=== PATIENT | male | born 1950 | race Caucasian/White ===

== ENCOUNTER 2019-12-30 10:31 | Day surgery (SDC) | payer OTHER, SELFPAY ==
--- NOTE | 2019-12-29 18:24 | PCM.HP.BLA ---
History and Physical Date of Admission: 12/30/19 Reginald Aguirre 1950 ? REFERRING PHYSICIAN: Erasmo Valadez MD ? CHIEF COMPLAINT: covid talk ? HPI: The patient is a 69 year old male referred for endoscopy. Reginald notes a history of colon polyps. Patient denies any change in bowel habits, weight changes, blood in stools, black tarry stools or abdominal pain. Denies family history of colon issues. ? The patient notes no upper GI complaints. ? Reginald has undergone prior endoscopy, most recently 09/15/[address] Luna with removal of a small adenomatous colon polyp, 3 year follow up recommended. ? Patient denies chest pain, shortness of breath or recent hospitalizations. Denies problems with sedation in the past. ? PAST MEDICAL HISTORY ? History of colon polyps 07/24/2013 ? ? PAST SURGICAL HISTORY ? COLONOSCOP W/ OR W/O BRS SPEC ? 07/24/13 ? Colonoscopy ? COLONOSCOP W/ OR W/O BRS SPEC ? 09/15/2016 ? Colonoscopy ? KNEE SCOPE,DIAGNOSTIC ? ? ? Meniscal tear ? PAST SURGICAL HISTORY OF Right 2015 ? repair biceps tendon ? ROTATOR CUFF REPAIR ? 04/18/13 ? left ? ? ? CURRENT MEDICATIONS ? naproxen (NAPROSYN) 500 mg tablet Take 1 tablet by mouth twice daily as needed for Pain. Take with food. ? aspirin, enteric coated (ASPIRIN, ENTERIC COATED) 81 mg EC tablet Take 1 tablet by mouth once daily. ? ? ? ALLERGIES: Thimersol [Thimerosal] ? PERSONAL HISTORY: SOCIAL HISTORY Social History ?Tobacco Use ? Smoking status: Former Smoker ? Smokeless tobacco: Never Used ? Tobacco comment: years Substance Use Topics ? Alcohol use: Yes ? ? Comment: rarely ? Drug use: No ? FAMILY HISTORY: ? Diabetes Mother ? ? Emphysema Father ? ? Asbestosis ? Diabetes Brother ? ? Asthma Brother ? ? ? REVIEW OF SYMPTOMS: The review of systems data was entered by the nurse and reviewed by me ? Nursing Notes: Vidhi Fuller RN 12/12/2019 7:51 AM Signed REVIEW OF SYSTEMS: General: The patient denies fatigue, denies weight loss, denies weight gain, denies feeling hot, and denies feelings of cold. Eyes: The patient denies glaucoma, denies eye injury/surgery, wears glasses or contacts. Ear/Nose/Throat: The patient denies allergies, denies hayfever, denies ear infections, and denies bloody noses. Cardiovascular: The patient denies chest pain, denies heart disease, denies high blood pressure,denies cardiac stent, denies prior heart attack, denies irregular heart beat, denies high cholesterol, denies poor circulation, denies heart failure, other cardiac issues, denies claudication, denies cold feet, denies peripheral arterial stent. Respiratory: The patient denies tuberculosis, denies pneumonia, denies frequent cough, denies pulmonary embolism, denies shortness of breath, and denies coughing up blood. Gastrointestinal: The patient denies difficulty swallowing, denies acid reflux, denies ulcers, denies vomiting, denies jaundice/hepatitis, denies gallbladder problems, denies black or tarry stools, denies hemorrhoids, denies bleeding from rectum, denies diverticulitis, denies constipation, denies diarrhea, denies loss of stool control, and denies hernias. Kidney/Bladder: The patient denies kidney stones, denies urine infections, and denies bloody urine. Skin: The patient ? a history of skin cancer, denies bleeding/changing moles, and denies a history of skin rash. Neurologic: The patient denies a history of epilepsy/convulsions, denies headaches, denies head/spinal injuries, and denies stroke/TIA. Psychiatric: The patient ? psychiatric medications, denies depression, and denies voices, denies substance abuse. Endocrine: The patient denies thyroid disorders, denies diabetes, and denies hormonal problems. Hematologic: The patient denies a history of bruising, denies bleeding, and denies anemia, denies blood clots. Infections: The patient notes a history of measles and mumps, denies rheumatic fever, and denies sexually transmitted diseases. Musculoskeletal: The patient denies back pain/injury, denies back problems, denies sciatica, notes knee/foot trouble, denies arthritis, or denies gout. ? ? When was patient's last Mammogram screening? N/A ? Last Colonoscopy: 2017 ? Vidhi Fuller RN I have confirmed and edited as necessary, the PFSH and ROS obtained by others. ? ? LABORATORY VALUES: As Noted ? RADIOLOGIC STUDIES: As Noted IMPRESSION: History of colon polyps ? PLAN: I have reviewed my findings with the surgeon. Will plan for lower endoscopy. We discussed the risks and benefits of the planned endoscopy. I have informed the patient that complications can occur including failure to complete the endoscopy and perforation. The patient had the opportunity to ask questions concerning the planned endoscopy. My staff has also explained the procedure to the patient in understandable terms. The patient freely consents to surgery. ? I plan to use golytely bowel preparation ? The patient was offered a surgery/procedure at a [facility] facility. I have counseled the patient regarding the risk of exposure to and/or potential harm posed by the COVID-19 virus with having a surgery/procedure at this time versus the risk of? delaying the surgery/procedure. It is not possible to know either the risk of delaying the surgery or procedure or chance of getting an infection with perfect accuracy, but a joint decision was made between the patient and myself?to proceed at this time with endoscopy. ? Preop instructions were reviewed. Patient mentioned having Ly[employer] take him to/from procedure appointment and I discussed that this would not be acceptable. Patient questioned this further and I did have our conductor sleeping car contact him directly to go over in Detail that he must have a ride who is a responsible adult, and that he cannot use a taxi service for this. Patient elected to reschedule procedureat [facility] where patient transportation service can be provided. ? ? ? Diagnoses: (Z12.11) Encounter for screening for malignant neoplasm of colon (primary encounter diagnosis) (Z86.010) History of colonic polyps ? ? Malia Brand PA-C
[2019-12-30 10:57] VITALS: PULSE 72; RESP 16; TEMP 36.6; O2SAT 98; BMI 38.3
[2019-12-30] MEDS: Lactated Ringers 1,000 ML 75 ML IV (11:01)
--- NOTE | 2019-12-30 12:00 | COLBX_PTH ---
PATIENT: FAYE VAUGHN LOC: EN U#:[id number] AGE/SX: 69/M ROOM: RE12/30/[address]: Dr. Sandrita Stephen MD : 1950 BED: DIS: 12/30/2019 SPEC #: [id number] RECD: 12/30/19 13:59 STATUS: SLY RELaly #: [id number] JENNIFER: 12/30/19 12:[address]: Sandrita Stephen DEPT: SURGICAL PATHOLOGY RECD BY: Guy Daniel ENTERED: 12/31/19 09:53 SP TYPE: COLON BX OTHR DR: Dr. Erasmo Valadez MD Tissues: Rectum, NOS Procedures: Surgery Specimen Level IV HEADER OPERATION: Colonoscopy (MAC) PRE-OP DIAGNOSIS: History colon polyps TISSUE SUBMITTED: Rectal polyp MICROSCOPIC DIAGNOSIS Rectal polyp, biopsy: Fragments of tubular adenoma. AM:estephanie 01/01/20 COMMENT Case has been reviewed in consultation with Dr. Jacinto who concurs with the above diagnosis. IDC:SJ MICROSCOPIC DESCRIPTION Slides are reviewed. GROSS DESCRIPTION Received in fixative is one container labeled with the patient's name and designated rectal polyp. The specimen consists of a piece of cabrales-pink polyp measuring 0.7 x 0.6 x 0.3 cm. A few fragments of fecal material are also noted. The entire specimen is submitted in one cassette. / AFTAB:estephanie 12/31/19 TC:5 CPT: 95134
[2019-12-30 12:40] VITALS: BP 149/95; BP 155/85; PULSE 82; RESP 16; TEMP 36.8; O2SAT 100
--- NOTE | 2019-12-30 12:41 | OP.CCLET_ITS ---
12/30/2019 Erasmo Valadez [address] [place] [address] Re : Colonoscopy procedure for Reginald Aguirre Dear Dr. Valadez This procedure was performed on Monday, December 30, 2019. My impressions and recommendations are as follows: Impressions : - One 5 to 10 mm polyp in the rectum, removed with a cold snare. Resected and retrieved. - Non-bleeding internal hemorrhoids. Recommendations : - Repeat colonoscopy date to be determined after pending pathology results are reviewed for surveillance based on pathology results. - A virtual visit will be setup with my office with Malia Brand to discuss pathology results in 1-2 weeks - Continue present medications. My findings are described in the full procedure note, which is enclosed. If I can be of further assistance, please feel free to contact me at Doctor phone number(s): , Work: . Sincerely, MD Sandrita Kruse MD 12/30/2019 12:40:40 PM This report has been signed electronically.
--- NOTE | 2019-12-30 12:41 | OP.COLON_ITS ---
Patient Name: Reginald Aguirre Procedure Date: 12/30/2019 11:50 AM Date of : 1950 Age: 69 Procedure: Colonoscopy Indications: High risk colon cancer surveillance: Personal history of colonic polyps Providers: Sandrita Stephen MD Referring MD: Sandrita Stephen MD Medicines: See the Anesthesia note for documentation of the administered medications Patient Profile: Refer to note in patient chart for documentation of history and physical. Last Colonoscopy: 2016. Complications: No immediate complications. Procedure: Pre-Anesthesia Assessment: - see anesthesia note After I obtained informed consent, the scope was passed under direct vision. Throughout the procedure, the patient's blood pressure, pulse, and oxygen saturations were monitored continuously. The Colonoscope was introduced through the anus and advanced to the cecum, identified by the appendiceal orifice, IC valve and transillumination. The colonoscopy was performed without difficulty. The patient tolerated the procedure well. The quality of the bowel preparation was adequate. Scope In: 12:14:51 PM Scope Withdrawal Time 0 hours 12 minutes 27 seconds Scope Out: 12:35:02 PM Total Procedure Duration Time 0 hours 20 minutes 11 seconds Findings: The perianal and digital rectal examinations were normal. A 5 to 10 mm polyp was found in the rectum. The polyp was sessile. The polyp was removed with a cold snare. Resection and retrieval were complete. Verification of patient identification for the specimen was done by the nurse. Estimated blood loss was minimal. Non-bleeding internal hemorrhoids were found. Multiple small and large-mouthed diverticula were found in the sigmoid colon. Impression: - One 5 to 10 mm polyp in the rectum, removed with a cold snare. Resected and retrieved. - Non-bleeding internal hemorrhoids. Recommendation: - Repeat colonoscopy date to be determined after pending pathology results are reviewed for surveillance based on pathology results. - A virtual visit will be setup with my office with Malia Brand to discuss pathology results in 1-2 weeks - Continue present medications. Procedure Code(s): --- Professional --- 35452, Colonoscopy, flexible; with removal of tumor(s), polyp(s), or other lesion(s) by snare technique Diagnosis Code(s): --- Professional --- Z86.010, Personal history of colonic polyps K62.1, Rectal polyp K64.8, Other hemorrhoids CPT copyright 2017 [employer]. All rights reserved. The codes documented in this report are preliminary and upon estate administrator review may be revised to meet current compliance requirements. MD Sandrita Kruse MD 12/30/2019 12:40:40 PM This report has been signed electronically. Number of Addenda: 0 Note Initiated On: 12/30/2019 11:50 AM
[2019-12-30 12:45] VITALS: BP 155/85; BP 159/93; PULSE 71; RESP 16; O2SAT 97
[2019-12-30 12:50] VITALS: BP 155/85; BP 167/92; PULSE 74; RESP 16; O2SAT 97
[2019-12-30 12:55] VITALS: BP 155/85; BP 173/93; PULSE 63; RESP 16; TEMP 36.3; O2SAT 97
[2019-12-30 13:21] VITALS: BP 155/85
== END 2019-12-30 13:24 | disposition home or self-care (01) ==
LOC: EN 10:32 → AC 10:33
PROVIDERS: Anesthesiology; PCP Family Medicine; Referring Provider Surgery; Visit Provider Surgery
PROC: 0DJD8ZZ Inspection of Lower Intestinal Tract, Via Natural or Artificial Opening Endoscopic (ICD-10-PCS; CPT 45378; principal; 2019-12-30 11:55)
DX: Z12.11 Encounter for screening for malignant neoplasm of colon (principal); Z87.19 Personal history of other diseases of the digestive system; K64.8 Other hemorrhoids; Z87.891 Personal history of nicotine dependence; Z85.828 Personal history of other malignant neoplasm of skin; D12.8 Benign neoplasm of rectum
CPT/HCPCS: 45385; 87635; 88305; C9803; J7120; J2405; U0003

== ENCOUNTER → 2020-05-10 08:00 | Outpatient (CLI) | payer OTHER, SELFPAY ==
--- NOTE | 2020-05-10 09:31 | NEURO_ITS ---
NCS and/or EMG Patient Report Ordering Doctor: Phoenix Byrne DATE OF SERVICE: 05/10/20 Indication: In December 2019 the patient was lifting a heavy object at work when he felt a sharp pain in the base of his right thumb. He subsequently experienced swelling on the volar surface of the wrist. These symptoms improved with time, but he was left with persistent numbness in the palm of the right hand. The area is well- circumscribed and does not extend into the fingers. There is no associated weakness. Evaluate for peripheral nerve injury. Findings: Nerve conduction studies were performed in the right upper extremity. The right median motor study recording the abductor pollicis brevis showed a normal amplitude, borderline distal latency and normal conduction velocity. The right ulnar motor study recording the abductor digiti minimi showed a normal amplitude, normal distal latency and normal conduction velocity. No conduction block or focal slowing was present across the elbow. The right median sensory response recording digit two showed a normal amplitude, latency and conduction velocity. The right ulnar sensory response recording digit five showed a mildly reduced amplitude, latency and conduction velocity. Note, the ulnar response was sub-maximal due to persistent motor artifact. The right radial sensory response recording over the extensor snuff box showed a normal amplitude, latency and conduction velocity. Right median mixed palmar latencies showed a normal median latency across the wrist. Needle EMG of the right upper extremity muscles was performed. No denervation was seen in any muscle. All motor unit morphology, activation and recruitment patterns were normal. Impression: This is an essentially normal study. There is no definitive electrophysiologic evidence of median neuropathy across the wrist. In addition, there are no findings on needle EMG to suggest a more proximal neurogenic injury (e.g. cervical radiculopathy, brachial plexopathy). Please note: electrodiagnostic testing is appropriately 95% sensitive in detecting median neuropathy across the wrist. However, 5% of patients will have a false negative study. Presumably, in these patients, intermittent compression results in pain and paresthesias from ischemia, but without any fixed demyelination or axonal loss that can be demonstrated on electrodiagnostic studies. If clinical suspicion remains high, a neuromuscular ultrasound could be considered to look for signs of mechanical impingement. Lastly, the mildly reduced ulnar sensory response is technical in nature. A submaximal response was obtained due to significant motor artifact. In addition, the patient's reported symptoms are outside the sensory territory of the ulnar nerve. Jose Jack D.O.
== END ==
PROVIDERS: PCP Family Medicine; Referring Provider Orthopaedic Surgery; Visit Provider Orthopaedic Surgery
DX: S63.91XA Sprain of unspecified part of right wrist and hand, initial encounter (principal)
CPT/HCPCS: 95886; 95909; 95910

== ENCOUNTER 2020-06-09 08:53 | Outpatient (RCR) | payer OTHER, SELFPAY | END 2020-06-09 23:59 | LOC: IMMUN 08:53 | PROVIDERS: PCP Family Medicine; Visit Provider Family Medicine | DX: Z23 Encounter for immunization (principal) | CPT/HCPCS: 0011A; 0012A ==

== ENCOUNTER 2020-12-18 05:13 | Emergency (ER) | payer OTHER, SELFPAY ==
[2020-12-18 05:13] VITALS: BP 170/88; PULSE 101; RESP 18; TEMP 36.1; O2SAT 100; BMI 37.7
--- NOTE | 2020-12-18 05:21 | EDS_ITS ---
HPI History of Present Illness Chief Complaint: Upper Extremity Injury Informant: patient Narrative Narrative: Patient started with pain in the dorsum of his right hand about 10 days or so ago. He was seen in urgent care center they told him it was a sprain and they taped a couple fingers. He went back in a week like he was told. They stated that he need to tape more of his fingers and I started him on Naprosyn as a few days ago. He comes in today because he still having pain on the dorsum of his hand and some swelling. It is never gotten better. It involves the dorsum of his right hand long ring and small finger. Mostly the long and ring. His index and thumb were not involved. He has had no fevers chills. No specific acute trauma although he does use his hand quite a bit. He also has Harini's syndrome and gets joint pain but has never had it in his hand. Past medical history is positive for cholesterol No known allergies Medications include Naprosyn and statin No recent surgeries Lives independently and works full-time [facility] Medical History High cholesterol History of prostate cancer History of skin cancer Home Medications naproxen 500 mg PO DAILY PRN PRN 12/16/19 [History Last Taken Unknown] prednisone 60 mg PO DAILY #15 tab 12/18/20 [Rx Last Taken Unknown] Allergy/AdvReac Type Severity Reaction Status Date / Time No Known Allergies Allergy Verified 12/18/20 05:16 Social History Smoking Status: Former smoker ROS ROS ED Constitutional Constitutional ED: Denies chills or sweats Gastrointestinal Gastrointestinal: Denies nausea or vomiting Musculoskeletal Musculoskeletal: Reports other Details: See history of present illness. ; Denies back pain or neck pain Integumentary Denies rash Neurologic Neurologic: Denies paresthesias or weakness EXAM Physical Exam Const Vital Signs: 12/18/20 05:13 Temperature 96.9 F L Temperature Source Temporal Pulse Rate 101 H Respiratory Rate 18 Blood Pressure 170/88 H Blood Pressure Mean 115 Pulse Ox 100 Oxygen Delivery Method Room Air Positive well nourished and well developed General Appearance ED: well developed and NAD HEENT normocephalic and atraumatic Resp normal respiratory effort Extremity Extremity Narrative: There is a very mild amount of swelling of the dorsum of his right hand. This overlies the third fourth and slightly fifth metacarpal. No real swelling in the fingers. No swelling in the wrist. With flexion of the involved fingers he does get some pain in the dorsum of the hand. Negative Shelli's test. No pain with motion of the wrist or joints individually. There is no erythema or warmth. No indication whatsoever of infection. Neuro oriented x3, no focal motor deficits and no sensory deficits noted Sensorium / Orientation: alert Motor Exam: strength 5/5 throughout Psych mental status grossly normal Skin Lesions: no lesions Rashes: no rashes MDM MDM MDM Narrative Medical decision making narrative: Three-view x-ray of the right hand looked at by me shows a fair amount of arthritis and bone cyst changes. But no notable mass fracture or acute abnormality. Clinically this is consistent with an extensor tendinitis. We will have him stop the Naprosyn. He does not have diabetes. I will put him on a short course of prednisone. He will continue to tape and stabilize the fingers as he has been. He will follow up with his primary physician. Discharge Plan Triage Chief Complaint: Upper Extremity Injury ED Provider: Cristiano Rondon Dx/Rx/DC Orders Clinical Impression: Tendinitis of extensor tendon of right hand Instructions: ED Tendonitis Prescriptions: New prednisone 20 MG tablet 60 mg PO DAILY Qty: 15 RF: 0 No Action naproxen 500 MG tablet 500 mg PO DAILY PRN PRN (Reason: Pain Or Fever) RF: 0 Primary Care Provider: Erasmo Valadez Referrals: Erasmo Valadez MD [Primary Care Provider] - 3-5 Days if not improving Disposition Disposition: Home, Self Care
--- NOTE | 2020-12-18 05:30 | RAD_ITS ---
STUDY: X-RAY - RIGHT HAND REASON FOR EXAM: Male, 70 years old. pain TECHNIQUE: 3 view(s) of the hand. COMPARISON: None. FINDINGS: Normal radiocarpal articulation. Normal distal radioulnar joint. Normal visualized carpal bones. Normal carpal articulations Normal carpometacarpal articulation of the thumb. Normal second through fifth carpometacarpal joints. Normal metacarpi. Normal metacarpophalangeal joint of the thumb. Normal interphalangeal joint of the thumb. Normal proximal and distal phalanges of the thumb. Joint space narrowing and osteophyte formation of the third metacarpophalangeal joint consistent with arthrosis. There is diffuse articular joint space narrowing of the proximal and distal interphalangeal joints of the second through fifth fingers, but without erosive changes or periarticular soft tissue swelling. Normal phalanges of the second through fifth fingers. The soft tissue structures are unremarkable. RAD/Hand Min 3 Views IMPRESSION: Degenerative joint disease of the hand, including the third metacarpophalangeal joint, as described above. Electronically Signed: Abiodun Moore MD at 6:43 EDT Tel , Service support ,
[2020-12-18] MEDS: predniSONE 20 MG Tablet 60 MG PO (06:06)
== END 2020-12-18 06:08 | disposition home or self-care (01) ==
PROVIDERS: Emergency Provider Emergency Medicine; PCP Family Medicine
DX: M77.9 Enthesopathy, unspecified (principal); Z87.891 Personal history of nicotine dependence; Z85.46 Personal history of malignant neoplasm of prostate
CPT/HCPCS: 73130; 99283

== ENCOUNTER 2021-03-26 09:41 | Emergency (ER) | payer OTHER, SELFPAY ==
[2021-03-26 09:41] VITALS: BP 186/85; PULSE 112; RESP 18; TEMP 36.6; O2SAT 96; BMI 36.9
[2021-03-26 09:52] VITALS: BP 186/85; PULSE 112; RESP 18; TEMP 36.6; O2SAT 96
--- NOTE | 2021-03-26 10:19 | US_ITS ---
STUDY: SCROTUM ULTRASOUND REASON FOR EXAM: Male, 70 years old. Right testicular pain TECHNIQUE: Ultrasound evaluation of the scrotum was performed with color Doppler and static pascual-scale imaging. COMPARISON: None. FINDINGS: RIGHT TESTICLE INTRATESTICULAR: There is a normal size of the right testicle. The right testicle measures 3.3 x 2.9 x 2.2 cm. There is a heterogeneous echotexture. There is increased arterial and normal venous vascularity. There is no demonstrated right testicular mass or cyst. EXTRATESTICULAR: The epididymis is enlarged. The epididymis head measures 1.8 cm. There is increased (hyperemic) vascularity of the epididymis. There is no demonstrated epididymal cystic structure. There is a small hydrocele. There is no demonstrated varicocele. There is no demonstrated extratesticular mass or cyst. LEFT TESTICLE INTRATESTICULAR: There is a normal size of the left testicle. The left testicle measures 3.6 x 2.5 x 2.1 cm. There is a heterogeneous echotexture. There is increased arterial and normal venous vascularity. There is no demonstrated left testicular mass or cyst. Small echogenic foci are seen in the left testicle which may represent small calcifications. EXTRATESTICULAR: The epididymis is normal in size. The epididymis head measures 1.7 cm. There is increased (hyperemic) vascularity of the epididymis. There is no demonstrated epididymal cystic structure. There is no demonstrated hydrocele. There is no demonstrated varicocele. There is no demonstrated extratesticular mass or cyst. US/Testicular with Arterial Flow IMPRESSION: 1. No evidence of testicular torsion at the time this examination was performed. 2. Increased vascularity to both testicles worse on the right side and of the right epididymis which may reflect orchitis and right epididymitis. 3. Small echogenic foci in the left testicle could represent small calcifications. Electronically Signed: Valente Warner, at 12:26 EST Tel , Service support ,
--- NOTE | 2021-03-26 10:38 | EX.ED.DYSGE1 ---
HPI History of Present Illness Chief Complaint: Abd Pain Informant: patient Onset/Context/Timing Onset: Days Context: Gradual Onset Current Severity: Moderate Maximum Severity: Moderate Narrative Narrative: Patient present secondary to right lower quadrant pain and right testicular swelling. Patient had prostatectomy surgery [address] Nieves at [facility]. He had a catheter placed at that time. It was removed on , 2 days ago. He states that evening he started noticing pain in the right lower quadrant and today is noted his right testicle is swollen. He has a history of self cathing and states he is having more pain when doing so. No fever or chills. [facility] Medical History (Updated 03/26/21 @ 14:[address] Loraine Hendrix MD) High cholesterol History of prostate cancer History of skin cancer Home Medications atorvastatin 40 mg PO DAILY 03/26/21 [History Last Taken 03/26/21] ferrous sulfate [FeroSul] 325 mg PO BID 03/26/21 [History Last Taken 03/26/21] hydrocodone-acetaminophen 1 tab PO Q6H PRN 3 Days #10 tab 03/26/21 [Rx Last Taken Unknown] levofloxacin 500 mg PO DAILY #9 tab 03/26/21 [Rx Last Taken Unknown] Allergy/AdvReac Type Severity Reaction Status Date / Time No Known Allergies Allergy Verified 03/26/21 09:43 Surgical History H/O prostatectomy Social History Smoking Status: Former smoker ROS ROS ED Constitutional Constitutional ED: Denies chills or fever(s) Eyes Eyes: Denies change in vision ENT ENT ED: Denies sore throat Cardiovascular Cardiovascular: Denies chest pain Respiratory/Chest Respiratory/Chest: Denies cough or dyspnea Gastrointestinal Gastrointestinal: Reports abdominal pain; Denies diarrhea, nausea or vomiting Genitourinary Genitourinary ED: Reports dysuria and other Details: Right testicular pain and swelling Musculoskeletal Musculoskeletal: Denies back pain Integumentary Denies rash Neurologic Neurologic: Denies headache(s) or weakness Allergic/Immunologic Allergic/Immunologic ED: Denies urticaria EXAM Physical Exam Const Vital Signs: 03/26/21 09:41 03/26/21 09:52 03/26/21 11:06 Temperature 97.9 F 97.9 F 98.7 F Temperature Source Temporal Temporal Temporal Pulse Rate 112 H 112 H 93 Respiratory Rate 18 18 20 H Blood Pressure 186/85 H 186/85 H 132/72 H Blood Pressure Mean 118 118 92 Pulse Ox 96 96 93 Oxygen Delivery Method Room Air Room Air Room Air 03/26/21 13:06 Temperature Temperature Source Pulse Rate 89 Respiratory Rate 15 Blood Pressure 147/66 H Blood Pressure Mean 93 Pulse Ox Oxygen Delivery Method Positive well nourished and well developed General Appearance ED: well developed HEENT Reports moist mucous membranes Eyes PERRL and EOMs intact bilaterally Neck supple Chest Wall inspection of chest normal and palpation of chest normal Resp normal respiratory effort and clear to auscultation bilaterally Cardio regular rate and regular rhythm GI GI Narrative: Minimal tenderness in the right lower quadrant. No palpable masses. No obvious hernias. Hypoactive bowel sounds. Narrative: Edema and tenderness to the right testicle. No significant scrotal erythema or skin change. Mild discharge from the urethral meatus. Neuro oriented x3 Sensorium / Orientation: alert Skin no rashes or lesions noted MDM MDM MDM Narrative Medical decision making narrative: Patient given morphine and Zofran for pain. Lab work, urinalysis, testicular ultrasound obtained. Lab Data Attestation: I reviewed the patient's lab results. Labs: Laboratory Results - last 24 hr 03/26/21 03/26/21 03/26/21 10:33 10:33 12:20 WBC 9.5 RBC 4.97 Hgb 13.7 Hct 42.7 MCV 85.9 MCH 27.6 MCHC 32.1 RDW Std Deviation 41.2 RDW Coeff of Khoa 13.2 Plt Count 198 MPV 8.9 Immature Gran % (Auto) 0.400 Neut % (Auto) 84.0 H Lymph % (Auto) 5.1 L [place] % (Auto) 6.5 Eos % (Auto) 3.8 Baso % (Auto) 0.2 Absolute Neuts (auto) 8.0 H Absolute Lymphs (auto) 0.49 L Nucleated RBC % 0 Differential Comment SCANNED Sodium 138 Potassium 3.7 Chloride 102 Carbon Dioxide 27.0 Anion Gap 9 BUN 22 H Creatinine 1.02 Estim Creat Clear Calc 67.39 Est GFR (MDRD) Af Amer 93 Est GFR (MDRD) Non-Af 77 BUN/Creatinine Ratio 21.6 H Glucose 163 H Calcium 9.2 Urine Color Yellow Urine Clarity Clear Urine pH 6.0 Ur Specific [place] 1.030 Urine Protein 100 H Urine Glucose (UA) Normal Urine Ketones Negative Urine Occult Blood 250 H Urine Nitrite Negative Urine Bilirubin Negative Urine Urobilinogen Normal Ur Leukocyte Esterase 500 H Urine RBC 25-50 SEEN Urine WBC >100 SEEN Ur Squamous Epith Cells 0 SEEN Urine Bacteria 0 SEEN Urine Mucus 0 SEEN Radiography Diagnostic Testing: Clinical Impression(s) from Imaging Studies Testicular Ultrasound 03/26/21 10:19 IMPRESSION: 1. No evidence of testicular torsion at the time this examination was performed. 2. Increased vascularity to both testicles worse on the right side and of the right epididymis which may reflect orchitis and right epididymitis. 3. Small echogenic foci in the left testicle could represent small calcifications. Electronically Signed: Valente Warner, at 12:26 EST Tel , Service support , Treatment and Re-Evaluation Comments:: Lab work overall unremarkable. Urinalysis does show significant white cells with no bacteria. Ultrasound shows evidence of orchitis and right epididymitis. No sign of testicular torsion. On repeat evaluation patient resting comfortably. Test results discussed with him. He will be treated with a 10-day course of Levaquin and given analgesics. He is to follow-up Dr. العراقي within the next 1 to 2 weeks. Discharge Plan Triage Chief Complaint: Abd Pain ED Provider: Loraine Hendrix Dx/Rx/DC Orders Clinical Impression: Orchitis and epididymitis Instructions: ED Epididymitis, ED Orchitis Prescriptions: New hydrocodone-acetaminophen 5-325 mg tablet 1 tab PO Q6H PRN (Reason: pain) 3 Days Qty: 10 RF: 0 levofloxacin 500 mg tablet 500 mg PO DAILY Qty: 9 RF: 0 No Action atorvastatin 40 mg tablet 40 mg PO DAILY RF: 0 ferrous sulfate [FeroSul] 325 mg (65 mg iron) tablet 325 mg PO BID RF: 0 Primary Care Provider: Erasmo Valadez Referrals: Erasmo Valadez MD [Primary Care Provider] - [place] العراقي MD [NON-STAFF] - 1 Week Disposition Disposition: Home, Self Care
[2021-03-26] MEDS: Ondansetron 4 MG/2 ML Vial IV ×2 (11:01→12:33)
[2021-03-26] MEDS: Morphine 4 MG/ML Syringe IV ×2 (11:03→12:34)
[2021-03-26 11:04] LABS: Absolute Lymphocyte Count 0.49 X10^3/uL (0.83-4.51); Basophil# 0.02 X10^3/uL; Basophil% 0.2 % (0-1); Eosinophil# 0.36 X10^3/uL; Eosinophils% 3.8 % (0-5); Hematocrit 42.7 % (40-54); Hemoglobin 13.7 g/dL (13.0-16.5); Lymphocyte # 0.49 X10^3/ul (0.83-4.51); Lymphocyte % 5.1 % (19-41); Mean Corp Hgb Conc 32.1 g/dL (32-36); Mean Corpuscular Hgb 27.6 pg (27.0-32.0); Mean Corpuscular Volume 85.9 fL (80-94); Mean Platelet Vol. 8.9 fl (6.2-12.0); Monocyte# 0.62 X10^3/uL; Monocyte% 6.5 % (0-10); NRBC Flagged by Analyzer 0 % (0-5); POSITIVE DIFFERENTIAL YES; Platelet Count 198 K/mm3 (150-450); RBC Distribution Width CV 13.2 % (11.6-14.6); RBC Distribution Width SD 41.2 fl (35.1-43.9); Red Blood Count 4.97 M/mm3 (4.6-6.2); White Blood Count 9.5 K/mm3 (4.4-11.0)
[2021-03-26 11:06] VITALS: BP 132/72; PULSE 93; RESP 20; TEMP 37.1; O2SAT 93
[2021-03-26 11:12] LABS: Differential Indicated SCAN CRITERIA MET
[2021-03-26 11:14] LABS: Anion Gap 9 (5-15); BUN 22 mg/dL (7-18); BUN/Creat Ratio 21.6 RATIO (10-20); Calcium,Total 9.2 mg/dL (8.5-10.1); Chloride 102 mmol/L (98-107); Creatinine, Serum 1.02 mg/dL (0.70-1.30); EST Glomerular Filtration Rate 77 mL/min (>60); Est Glom Filt Rate - Afr Amer 93 mL/min (>60); Estimated Creatinine Clearance 67.39 ml/min; Glucose 163 mg/dL (74-106); Potassium 3.7 mmol/L (3.5-5.1); Sodium Level 138 mmol/L (136-145)
[2021-03-26 11:32] LABS: Differential Comment SCANNED
[2021-03-26 12:26] LABS: Bacteria 0 SEEN /hpf (None Seen); Mucous, Urine 0 SEEN /hpf (<or=2+); Squamous Epithelial Cells - UA 0 SEEN /hpf (0-5)
[2021-03-26 12:29] LABS: Color, Urine Yellow (Yellow); Glucose, Dipstick Normal (Normal); Ketone-Dipstick Negative (Negative); Leukocyte Esterase-Dipstick 500 /ul (Negative); Nitrite-Dipstick Negative (Negative); Occult Blood-Urine 250 /ul (Negative); Protein-Dipstick 100 mg/dl (Negative); Urine Bilirubin Dipstick Negative (Negative); Urine Clarity Clear (Clear); Urine Urobilinogen Normal (Normal)
[2021-03-26 12:44] LABS: Red Blood Cells-Urine 25-50 SEEN /hpf (0-5); White Blood Cells >100 SEEN /hpf (0-5)
[2021-03-26 13:06] VITALS: BP 147/66; PULSE 89; RESP 15
[2021-03-26 14:31] VITALS: BP 151/70; PULSE 93; RESP 15
[2021-03-26] MEDS: levoFLOXacin 500 MG Tablet PO (14:31)
== END 2021-03-26 14:33 | disposition home or self-care (01) ==
PROVIDERS: Emergency Provider Emergency Medicine; PCP Family Medicine
DX: N45.3 Epididymo-orchitis (principal); E78.00 Pure hypercholesterolemia, unspecified; Z79.899 Other long term (current) drug therapy; Z85.46 Personal history of malignant neoplasm of prostate; Z87.891 Personal history of nicotine dependence; Z90.79 Acquired absence of other genital organ(s)
CPT/HCPCS: 76870; 80048; 81001; 85025; 87040; 87077; 87086; 87088; 87186; 93976; 96374; 96375; 96376; 99285; A4216; J2405

== ENCOUNTER 2021-03-27 09:32 | Inpatient (IN) | payer OTHER, MEDICARE, SELFPAY ==
[2021-03-27 09:33] VITALS: BP 154/85; PULSE 111; RESP 20; TEMP 36.7; O2SAT 96; BMI 36.6
--- NOTE | 2021-03-27 10:09 | EX.ED.GUMALE ---
HPI History of Present Illness Chief Complaint: Male Pain/Injury Detail of Chief Complaint: Right testicle pain Informant: patient Pain Current Severity: 1010 Maximum Severity: 1010 Narrative Narrative: Patient presents to the emergency department complaint of pain in his right testicle. Patient tells me that he started having pain 2 days ago. Patient has history of prostatectomy 6 weeks ago and had an indwelling Barraza catheter till just over a week ago. Patient has been self catheterizing since these catheter was removed. Patient presented to the emergency department yesterday and had blood work as well as an ultrasound of the testicles and a urinalysis. Patient was diagnosed with a UTI as well as epididymitis/orchitis. Patient was started on Levaquin and started on pain medications which he states is not helping his pain. Patient states that he self cath last night and noted significant amount of blood which was unusual and noticed that his right testicle is since increased in size. He complains of pain is 10 out of 10. He denies any fever or vomiting. He denies any trauma to his testicles. [facility] Medical History (Updated 03/27/21 @ 18:[address] Domenico Barfield, DO) High cholesterol History of prostate cancer History of skin cancer Home Medications atorvastatin 40 mg PO DAILY 03/26/21 [History Last Taken 03/26/21] ferrous sulfate [FeroSul] 325 mg PO BID 03/26/21 [History Last Taken 03/26/21] hydrocodone-acetaminophen 1 tab PO Q6H PRN 3 Days #10 tab 03/26/21 [Rx Last Taken Unknown] levofloxacin 500 mg PO DAILY #9 tab 03/26/21 [Rx Last Taken Unknown] Allergy/AdvReac Type Severity Reaction Status Date / Time No Known Allergies Allergy Verified 03/27/21 09:35 Surgical History H/O prostatectomy Social History Smoking Status: Former smoker ROS ROS ED Constitutional Constitutional ED: Reports systems reviewed and no addt'l complaints, except as documented; Denies body ache(s), change in weight or chills Eyes Eyes: Denies acute decrease in peripheral vision, change in vision, double vision or loss of vision ENT ENT ED: Reports none; Denies ear pain, lip swelling, loss taste/smell, neck pain, otalgia or sore throat Cardiovascular Cardiovascular: Reports none; Denies abdominal pain, chest pain with activity, leg edema, lightheadedness, palpitations, rapid heart rate or syncope Respiratory/Chest Respiratory/Chest: Reports none; Denies change in mental status, dry cough, dyspnea, hemoptysis, shortness of breath at rest or shortness of breath with exertion Gastrointestinal Gastrointestinal: Reports none; Denies abdominal pain, change in stool character, diarrhea, hematemesis, hematochezia, melena, rectal bleeding or vomiting Genitourinary Genitourinary ED: Reports none and other Details: Right testicle pain and swelling ; Denies abdominal discomfort, anuria, dysuria, genital pain or polyuria Musculoskeletal Musculoskeletal: Reports none; Denies arthralgias, back pain, difficulty walking, extremity pain, muscle weakness or myalgias Integumentary Reports none; Denies abscess or rash Neurologic Neurologic: Reports none; Denies abnormal gait, confusion, focal weakness, frequent falls, headache(s), loss of vision, numbness, paresthesias, radicular pain, vertigo or weakness Psychiatric Psychiatric: Reports systems reviewed and no addt'l complaints, except as documented and none; Denies behavioral changes, confusion, difficulty concentrating, hallucinations, suicidal ideation, tactile hallucinations or visual hallucinations Endocrine Endocrinology: Denies none, cold intolerance, excessive sweating, fatigue or heat intolerance Hematologic/Lymphatic Hematologic/Lymphatic: Reports none; Denies anemia, easy bleeding or easy bruising Allergic/Immunologic Allergic/Immunologic ED: Denies as per HPI, none, lip swelling, mouth swelling, throat swelling, tongue swelling or hives EXAM Physical Exam Const Vital Signs: 03/27/21 09:33 03/27/21 12:22 03/27/21 14:20 Temperature 98.0 F Temperature Source Temporal Pulse Rate 111 H 68 86 Respiratory Rate 20 H 18 16 Blood Pressure 154/85 H 138/68 H 114/65 Blood Pressure Mean 108 91 81 Pulse Ox 96 96 95 Oxygen Delivery Method Room Air Room Air Room Air Positive well nourished and well developed General Appearance ED: well developed and NAD HEENT Reports TM's clear and moist mucous membranes normocephalic and atraumatic; Negative for trauma or tenderness Tympanic Membrane ED: Yes TM's clear Eyes PERRL and EOMs intact bilaterally General Eye ED: Negative for pale conjunctiva or scleral icterus Neck no lymphadenopathy, supple and no JVD General: Negative for tenderness Chest Wall inspection of chest normal and palpation of chest normal Chest: Negative for tenderness Resp normal respiratory effort and clear to auscultation bilaterally Effort and Inspection: Negative for respiratory distress or pain with movement Auscultation: Negative for rhonchi, wheezes or diminished lung sounds Cardio regular rate, regular rhythm, S1 normal heart sound, S2 normal heart sound and no murmurs Peripheral Pulses: pulses 2+ throughout GI normal to inspection, nondistended, normoactive bowel sounds, soft to palpation, non-tender, non-distended and no masses Narrative: Patient has a swollen right scrotum slightly erythematous. Testicle is enlarged and painful to palpation. Patient has tenderness over the epididymis. Back/Spine no CVA tenderness and no thoracic nor lumbar tenderness Extremity normal to inspection General Extremety ED: Negative for edema General Extremity: Negative for edema Neuro oriented x3, CN's II-XII intact bilaterally, no sensory deficits noted and gait normal Sensorium / Orientation: awake, alert, oriented to person, oriented to place and oriented to time Motor Exam: strength 5/5 throughout and strength abnormal Psych mental status grossly normal Skin no rashes or lesions noted and no wounds MDM MDM MDM Narrative Medical decision making narrative: IV line established on arrival. Patient started on Zosyn. Case discussed with hospitalist who asked that we transfer patient being that we do not have urology on-call. Patient would prefer to go back to where his urologist is and where he had his prostatectomy 6 weeks ago and asked that I discussed case with [facility] which we did. Patient was accepted for transfer by Dr. Abreu who is covering for urology. They are unsure when they will have a bed available and could be several days. After 6 hours and still no bed available patient will be evaluated by hospitalist to evaluate for admission until such time that patient has a bed available for transfer to [facility] Lab Data Attestation: I reviewed the patient's lab results. Labs: Laboratory Results - last 24 hr 03/27/21 03/27/21 10:30 10:30 WBC 14.8 H RBC 3.82 L Hgb 10.5 L Hct 33.1 L MCV 86.6 MCH 27.5 MCHC 31.7 L RDW Std Deviation 42.1 RDW Coeff of Khoa 13.4 Plt Count 240 MPV 9.1 Immature Gran % (Auto) 0.500 Neut % (Auto) 83.7 H Lymph % (Auto) 5.3 L [place] % (Auto) 7.4 Eos % (Auto) 3.0 Baso % (Auto) 0.1 Absolute Neuts (auto) 12.4 H Absolute Lymphs (auto) 0.79 L Nucleated RBC % 0 Sodium 138 Potassium 3.6 Chloride 103 Carbon Dioxide 26.0 Anion Gap 9 BUN 18 Creatinine 0.91 Estim Creat Clear Calc 75.53 Est GFR (MDRD) Af Amer 106 Est GFR (MDRD) Non-Af 88 BUN/Creatinine Ratio 19.8 Glucose 173 H Calcium 8.8 Discharge Plan Triage Chief Complaint: Male Pain/Injury ED Provider: Domenico Barfield Dx/Rx/DC Orders Clinical Impression: Acute epididymitis, Orchitis, Intractable pain, Acute UTI Prescriptions: No Action atorvastatin 40 mg tablet 40 mg PO DAILY RF: 0 ferrous sulfate [FeroSul] 325 mg (65 mg iron) tablet 325 mg PO BID RF: 0 hydrocodone-acetaminophen 5-325 mg tablet 1 tab PO Q6H PRN (Reason: pain) 3 Days Qty: 10 RF: 0 levofloxacin 500 mg tablet 500 mg PO DAILY Qty: 9 RF: 0 Primary Care Provider: Erasmo Valadez Referrals: Erasmo Valadez MD [Primary Care Provider] - Disposition Disposition: Acute Care [facility]
[2021-03-27] MEDS: Ondansetron 4 MG/2 ML Vial IV ×2 (10:34→19:06)
[2021-03-27] MEDS: HYDROmorphone 1 MG/ML Syringe IV (10:34)
[2021-03-27 10:47] LABS: Absolute Lymphocyte Count 0.79 X10^3/uL (0.83-4.51); Absolute Neutrophil Count 12.4 X10^3/uL (2.0-7.7); Basophil# 0.02 X10^3/uL; Basophil% 0.1 % (0-1); Eosinophil# 0.45 X10^3/uL; Hematocrit 33.1 % (40-54); Hemoglobin 10.5 g/dL (13.0-16.5); Lymphocyte # 0.79 X10^3/ul (0.83-4.51); Lymphocyte % 5.3 % (19-41); Mean Corp Hgb Conc 31.7 g/dL (32-36); Mean Corpuscular Hgb 27.5 pg (27.0-32.0); Mean Corpuscular Volume 86.6 fL (80-94); Mean Platelet Vol. 9.1 fl (6.2-12.0); Monocyte# 1.09 X10^3/uL; Monocyte% 7.4 % (0-10); NRBC Flagged by Analyzer 0 % (0-5); Neutrophil # 12.39 X10^3/uL (2.7-7.7); Neutrophil % 83.7 % (47-70); Platelet Count 240 K/mm3 (150-450); RBC Distribution Width CV 13.4 % (11.6-14.6); RBC Distribution Width SD 42.1 fl (35.1-43.9); Red Blood Count 3.82 M/mm3 (4.6-6.2); White Blood Count 14.8 K/mm3 (4.4-11.0)
[2021-03-27 10:52] LABS: Anion Gap 9 (5-15); BUN 18 mg/dL (7-18); BUN/Creat Ratio 19.8 RATIO (10-20); Calcium,Total 8.8 mg/dL (8.5-10.1); Chloride 103 mmol/L (98-107); Creatinine, Serum 0.91 mg/dL (0.70-1.30); EST Glomerular Filtration Rate 88 mL/min (>60); Est Glom Filt Rate - Afr Amer 106 mL/min (>60); Estimated Creatinine Clearance 75.53 ml/min; Glucose 173 mg/dL (74-106); Potassium 3.6 mmol/L (3.5-5.1); Sodium Level 138 mmol/L (136-145)
--- NOTE | 2021-03-27 11:52 | NURSING ---
HOSPITALIST FOR DR ULLOA
--- NOTE | 2021-03-27 12:09 | NURSING ---
1142 CALLED ISSAC TROTTER. SHE WILL CALL BACK
--- NOTE | 2021-03-27 12:10 | NURSING ---
ISSAC TROTTER CALLED BACK
[2021-03-27 12:22] VITALS: BP 138/68; PULSE 68; RESP 18; O2SAT 96
--- NOTE | 2021-03-27 12:58 | ED.RN ---
PT ACCEPTED AT [facility] BY DR GARNETT. NO BEDS AT THIS TIME. MAY BE TOMORROW OR THE NEXT DAY.
--- NOTE | 2021-03-27 13:01 | ED.RN ---
[facility] WILL CALL AT 1700 TO UPDATE
[2021-03-27 14:20] VITALS: BP 114/65; PULSE 86; RESP 16; O2SAT 95
--- NOTE | 2021-03-27 18:20 | NURSING ---
MED SURG JOPPERI ORCHITIS, EPIDIDIMYTIS, INTRACTABLE PAIN
[2021-03-27 18:45] VITALS: BP 126/67; PULSE 99; RESP 18; O2SAT 93
[2021-03-27] MEDS: Morphine 4 MG/ML Syringe IV (19:06)
--- NOTE | 2021-03-27 19:12 | HP.PCM.HOS_ITS ---
HPI - General HPI Narrative FAYE VAUGHN, is a 70 M who presents who underwent a prostatectomy about 6 weeks ago. Patient had a catheter was removed this past . Patient typically straight catheters and noted pain. Presented to the emergency room where he had an ultrasound that did not show any evidence of testicular torsion but did show increased vascularity of both testes worse on the right with right epididymitis and may reflect orchitis. Patient was discharged with levofloxacin. Today the patient felt worse and did catheterize himself and did have transient renato hematuria but then was subsequent clear urine thereafter. Patient received Pipracil and/tazobactam in the emergency room. Emergency room reached out to me about admission but with the epididymoorchitis and the patient's recent surgery recommended transfer to the hospital where he had the procedure performed in case he would require surgery. Contacted [facility] and patient was accepted that there but there is no ready beds av ailable. Also service was then contacted again for admission and patient be brought into the hospital until he could be transferred to [facility]. [facility] Medical History High cholesterol History of prostate cancer History of skin cancer Home Medications atorvastatin 40 mg PO DAILY 03/26/21 [History Last Taken 03/26/21] ferrous sulfate [FeroSul] 325 mg PO BID 03/26/21 [History Last Taken 03/26/21] hydrocodone-acetaminophen 1 tab PO Q6H PRN 3 Days #10 tab 03/26/21 [Rx Last Taken Unknown] levofloxacin 500 mg PO DAILY #9 tab 03/26/21 [Rx Last Taken Unknown] Allergy/AdvReac Type Severity Reaction Status Date / Time No Known Allergies Allergy Verified 03/27/21 09:35 Surgical History H/O prostatectomy Social History Smoking Status: Former smoker ROS ROS Narrative No melena nor hematochezia. No fever chills. All review of systems were negative except as mentioned above in the history of present illness and the other review of systems. He does have urinary incontinence and does straight catheterize. Vital Signs Vital Signs Vital Signs: 03/27/21 09:33 12/12/21 12:22 03/27/21 14:20 Temperature 36.7 C Temperature Source Temporal Pulse Rate 111 H 68 86 Respiratory Rate 20 H 18 16 Blood Pressure 154/85 H 138/68 H 114/65 Blood Pressure Mean 108 91 81 Pulse Ox 96 96 95 Oxygen Delivery Method Room Air Room Air Room Air Weight Weight: 112.491 kg Body Mass Index (BMI) 36.6 Physical Exam Const alert and oriented x3 Constitutional Narrative: Patient is no acute distress and afebrile. HEENT normocephalic Eyes PERRL and EOMs intact bilaterally Neck no lymphadenopathy Resp normal respiratory effort, no retractions, no use of accessory muscles and clear to auscultation bilaterally Cardio regular rate, regular rhythm, S1 normal heart sound and S2 normal heart sound GI normal to inspection, nondistended, normoactive bowel sounds, soft to palpation, non-tender and non-distended GI Narrative: Scrotum without any overt cellulitis but exquisite tenderness to his testes. Testes bilaterally. He does with withdrawn. Does have some noted active incontinence. Extremity normal to inspection Skin no rashes or lesions noted Neuro Sensorium / Orientation: awake and alert Psych affect normal Results Lab / Micro Data Attestation: I reviewed the patient's lab results. Result Diagrams: 03/27/21 10:30 03/27/21 10:30 Labs: Laboratory Results - last 24 hr 03/27/21 10:30: WBC 14.8 H, RBC 3.82 L, Hgb 10.5 L, Hct 33.1 L, MCV 86.6, MCH 27.5, MCHC 31.7 L, RDW Std Deviation 42.1, RDW Coeff of Khoa 13.4, Plt Count 240, MPV 9.1, Immature Gran % (Auto) 0.500, Neut % (Auto) 83.7 H, Lymph % (Auto) 5.3 L, [place] % (Auto) 7.4, Eos % (Auto) 3.0, Baso % (Auto) 0.1, Absolute Neuts (auto) 12.4 H, Absolute Lymphs (auto) 0.79 L, Nucleated RBC % 0 03/27/21 10:30: Sodium 138, Potassium 3.6, Chloride 103, Carbon Dioxide 26.0, Anion Gap 9, BUN 18, Creatinine 0.91, Estim Creat Clear Calc 75.53, Est GFR (MDRD) Af Amer 106, Est GFR (MDRD) Non-Af 88, BUN/Creatinine Ratio 19.8, Glucose 173 H, Calcium 8.8 Assessment & Plan Assessment/Plan (1) Orchitis and epididymitis: PLAN: 1. Epididymoorchitis Patient was discharged with levofloxacin from yesterday. I would not qualify this as treatment failure at this point in time. But since he was on levofloxacin, will place patient on present/tazobactam which patient has received in the emergency room. It would seem unlikely that this is gram-positive but just had his catheter removed 3 days prior and did have his prostatectomy done about [address] patient on vancomycin. Urine culture thus far growing out gram-negative rods. Continue with broad-spectrum antibiotics and de-escalate based on the final culture results. Urology consultation if available We will check an ultrasound to see if there is been any new developments since his last ultrasound on the . 2. VTE prophylaxis with enoxaparin Patient has been accepted at [facility]. No beds are really available. Discussed with patient that and available bed may be days if not greater than a week off. I told patient that if he does improve with antibiotics it is very possible that he could be discharged directly from this institution before he would be excepted at [facility]. Patient is vaccinated and has received the booster for COVID-19. Charges/Coding Visit Charges Inpatient E&M: 81778 Init Hosp L3
--- NOTE | 2021-03-27 19:13 | US_ITS ---
EXAM: US SCROTUM CLINICAL INDICATION: orchitis TECHNIQUE: Realtime ultrasound of the testicles was performed with grayscale and Color Doppler analysis. This report was created using [employer] report [employer] technology. COMPARISON: None. FINDINGS: Increased vascularity involving the right testicle parenchymal and epididymis. No abscess. Small right hydrocele. No varicocele. Normal vascularity involving the left. No mass or abscess. 2 mm echogenic foci without shadowing involving the left testicle are nonspecific. 6 mm left epididymal head cyst is benign. No left hydrocele or varicocele. Thickened soft tissue without significant increased vascularity surrounding the testicles. US/Testicular with Arterial Flow IMPRESSION: Right epididymoorchitis. No abscess. Reactive right hydrocele suspected. Electronically Signed: Louie Montaño MD at 21:56 EST Tel , Service support ,
[2021-03-27 19:45] VITALS: BP 118/68; PULSE 94; RESP 18; TEMP 37.8; O2SAT 93
--- NOTE | 2021-03-27 20:15 | NURSING ---
Pt taken for ultrasound by solar field service technician.
[2021-03-27 21:06] VITALS: BMI 36.6
[2021-03-27 21:18] VITALS: BP 122/70; PULSE 90; RESP 16; TEMP 37.2; O2SAT 96
[2021-03-27] MEDS: 0.9% Normal Saline 1,000 ML 150 ML IV (21:57)
[2021-03-27] MEDS: oxyCODONE 5 MG Tablet PO (22:24)
--- NOTE | 2021-03-28 00:47 | PCM.RX.CS ---
Consult Pharmacy has been consulted to manage selected antiobiotic: Vancomycin Type of Consult: New start Suspected Infection: Skin/Soft tissue Prior Doses of Antibiotics Received/Current Regimen: Medications Vancomycin HCl 1,750 mg/ (Sodium Chloride) 535 mls @ 250 mls/hr IV Q12H RUSSEL Discontinued Medications Vancomycin HCl 2,000 mg/ (Sodium Chloride) 540 mls @ 250 mls/hr IV X1 ONE Stop: 03/27/21 23:09 Last Admin: 03/27/21 21:57 Dose: 250 mls/hr Labs: Sodium 138 mmol/L (136-145) 03/27/21 10:30 Potassium 3.6 mmol/L (3.5-5.1) 03/27/21 10:30 Chloride 103 mmol/L (98-107) 03/27/21 10:30 Carbon Dioxide 26.0 mmol/L (21.0-32.0) 03/27/21 10:30 Anion Gap 9 (5-15) 03/27/21 10:30 BUN 18 mg/dL (7-18) 03/27/21 10:30 Creatinine 0.91 mg/dL (0.70-1.30) 03/27/21 10:30 Est GFR (MDRD) Af Amer 106 mL/min (>60) 03/27/21 10:30 Est GFR (MDRD) Non-Af 88 mL/min (>60) 03/27/21 10:30 BUN/Creatinine Ratio 19.8 RATIO (10-20) 03/27/21 10:30 Glucose 173 mg/dL (74-106) H 03/27/21 10:30 Weight used for dosin kg Estimated Creatinine Clearance: 76 Goal Trough: 15-20 mcg/mL Pharmacy Plan for Drug Dosing: Pharmacy Service will continue to monitor and adjust dosing as required. Follow-Up Labs: Trough Vancomycin Labs to be done on [date and time ordered]: 03/29/21 @0930
--- NOTE | 2021-03-28 02:43 | PCS.PANDOC ---
PANDEMIC DOCUMENTATION INITIATED: Date: 03/27/2021 Time: 2008
[2021-03-28 03:30] VITALS: BP 142/80; PULSE 108; RESP 20; TEMP 36.5; O2SAT 93
[2021-03-28] MEDS: 0.9% Normal Saline 1,000 ML 150 ML IV ×2 (06:26→22:46)
[2021-03-28 07:20] LABS: Absolute Lymphocyte Count 0.82 X10^3/uL (0.83-4.51); Absolute Neutrophil Count 10.5 X10^3/uL (2.0-7.7); Basophil# 0.03 X10^3/uL; Basophil% 0.2 % (0-1); Eosinophils% 3.9 % (0-5); Hematocrit 30.7 % (40-54); Hemoglobin 9.8 g/dL (13.0-16.5); Lymphocyte # 0.82 X10^3/ul (0.83-4.51); Lymphocyte % 6.3 % (19-41); Mean Corp Hgb Conc 31.9 g/dL (32-36); Mean Corpuscular Hgb 27.9 pg (27.0-32.0); Mean Corpuscular Volume 87.5 fL (80-94); Mean Platelet Vol. 9.4 fl (6.2-12.0); Monocyte# 1.04 X10^3/uL; NRBC Flagged by Analyzer 0 % (0-5); Neutrophil # 10.48 X10^3/uL (2.7-7.7); Neutrophil % 81.1 % (47-70); Platelet Count 222 K/mm3 (150-450); RBC Distribution Width CV 13.4 % (11.6-14.6); Red Blood Count 3.51 M/mm3 (4.6-6.2); White Blood Count 12.9 K/mm3 (4.4-11.0)
[2021-03-28 07:44] VITALS: BP 124/63; PULSE 99; RESP 20; TEMP 37.2; O2SAT 92
[2021-03-28 07:50] LABS: ALB/GLOB Ratio 0.6 RATIO (0.9-2.4); AST(SGOT) 110 U/L (15-37); Alanine Aminotransfer ALT/SGPT 24 U/L (16-61); Albumin, Serum 2.4 g/dL (3.2-5.0); Alkaline Phosphatase 99 U/L (45-117); Anion Gap 7 (5-15); BUN 18 mg/dL (7-18); BUN/Creat Ratio 17.5 RATIO (10-20); Calcium,Total 8.6 mg/dL (8.5-10.1); Chloride 106 mmol/L (98-107); Creatinine, Serum 1.03 mg/dL (0.70-1.30); EST Glomerular Filtration Rate 76 mL/min (>60); Est Glom Filt Rate - Afr Amer 92 mL/min (>60); Estimated Creatinine Clearance 66.73 ml/min; Globulin 3.8 g/dL (2.2-4.2); Glucose 158 mg/dL (74-106); Potassium 3.7 mmol/L (3.5-5.1); Protein, Total 6.2 g/dL (6.4-8.2); Sodium Level 138 mmol/L (136-145)
--- NOTE | 2021-03-28 07:59 | PN.HOSP_ITS ---
Subjective Subjective Patient had prostatectomy about 6 weeks ago. Had catheter pulled out on 03/24. Admitted with severe scrotal pain. Urine dribbling since catheter was pulled out Objective Data Objective Data Vital Signs: Vital Signs Temp Pulse Resp BP Pulse Ox 99.0 F 99 20 H 124/63 H 92 03/28/21 07:44 03/28/21 07:44 03/28/21 07:44 03/28/21 07:44 03/28/21 07:44 Oxygen Delivery Method Room Air Weight: 248 lb Body Mass Index (BMI) 36.6 Intake & Output: Intake and Output for Last 24 Hours 03/26/21 03/27/21 03/28/21 23:59 23:59 23:59 Intake Total 200 / 200 1590 / 1590 Balance 200 / 200 1590 / 1590 Lab / Micro Data Result Diagrams: 03/28/21 06:30 03/28/21 06:30 Labs: Laboratory Results - last 24 hr 03/27/21 10:30: WBC 14.8 H, RBC 3.82 L, Hgb 10.5 L, Hct 33.1 L, MCV 86.6, MCH 27.5, MCHC 31.7 L, RDW Std Deviation 42.1, RDW Coeff of Khoa 13.4, Plt Count 240, MPV 9.1, Immature Gran % (Auto) 0.500, Neut % (Auto) 83.7 H, Lymph % (Auto) 5.3 L, [place] % (Auto) 7.4, Eos % (Auto) 3.0, Baso % (Auto) 0.1, Absolute Neuts (auto) 12.4 H, Absolute Lymphs (auto) 0.79 L, Nucleated RBC % 0 03/27/21 10:30: Sodium 138, Potassium 3.6, Chloride 103, Carbon Dioxide 26.0, Anion Gap 9, BUN 18, Creatinine 0.91, Estim Creat Clear Calc 75.53, Est GFR (MDRD) Af Amer 106, Est GFR (MDRD) Non-Af 88, BUN/Creatinine Ratio 19.8, Glucose 173 H, Calcium 8.8 03/28/21 06:30: WBC 12.9 H, RBC 3.51 L, Hgb 9.8 L, Hct 30.7 L, MCV 87.5, MCH 27.9, MCHC 31.9 L, RDW Std Deviation 43.0, RDW Coeff of Khoa 13.4, Plt Count 222, MPV 9.4, Immature Gran % (Auto) 0.500, Neut % (Auto) 81.1 H, Lymph % (Auto) 6.3 L, [place] % (Auto) 8.0, Eos % (Auto) 3.9, Baso % (Auto) 0.2, Absolute Neuts (auto) 10.5 H, Absolute Lymphs (auto) 0.82 L, Nucleated RBC % 0 03/28/21 06:30: Sodium 138, Potassium 3.7, Chloride 106, Carbon Dioxide 25.0, Anion Gap 7, BUN 18, Creatinine 1.03, Estim Creat Clear Calc 66.73, Est GFR (MDRD) Af Amer 92, Est GFR (MDRD) Non-Af 76, BUN/Creatinine Ratio 17.5, Glucose 158 H, Calcium 8.6, Total Bilirubin 0.60, AST 110 H, ALT 24, Alkaline Phosphatase 99, Total Protein 6.2 L, Albumin 2.4 L, Globulin 3.8, Albumin/Globulin Ratio 0.6 L Radiography Diagnostic Testing: Radiology Impression Testicular Ultrasound 03/27/21 19:13 IMPRESSION: Right epididymoorchitis. No abscess. Reactive right hydrocele suspected. Electronically Signed: Louie Montaño MD at 21:56 EST Tel , Service support , Physical Exam Narrative General: Alert, Oriented x3, Cooperative HEENT: Atraumatic, PERRLA, EOMI, Normocephalic Oral: No Gingival or Mucosal Lesions/ Ulcerations Neck: Supple, No JVD, Negative Carotid Bruits Lungs: Air entry equal in bilateral lung bases. No crepitation/rhonchi Cardiovascular: Regular rate, Regular Rhythm, Normal S1, Normal S2, No murmurs Abdomen: Bowel Sounds Present, Soft, Non Tender, Non-Distended : Tenderness over his scrotum and penis which are swollen with subcutaneous edema, predominantly right hemiscrotum. Constant dribbling of urine. Extremities: No edema, Capillary Refill Less than 3 Seconds Skin: No rashes, No breakdown Musculoskeletal: No Tenderness to Palpation of Joints or Extremities Neurological: Cranial nerves II-XII grossly intact, DTR 2+/4 and Symmetrical, Neuro grossly intact Psych/Mental Status: Flat affect. Assessment & Plan Assessment/Plan (1) Orchitis and epididymitis: PLAN: 1. Right-sided epididymoorchitis, postsurgical after prostatectomy about 6 weeks ago with complicated Klebsiella pneumoniae UTI. The patient started on piperacillin/tazobactam. Urine culture shows Klebsiella pneumoniae more than 100,000 colonies and sensitive to ceftriaxone therefore antibiotic narrowed down. I called Dr. Desai requesting consult to evaluate to see and recommend further management recommendation. Patient was discharged on Levaquin and had just for 1 day. Testicular ultrasound reported right epididymoorchitis as reported above. 2. Recent prostatectomy for prostate cancer with prolonged urinary catheter status post removal on 03/24 with constant urinary incontinence: 2. VTE prophylaxis with enoxaparin Patient has been accepted at [facility]. No beds are really available. Discussed with patient that and available bed may be days if not greater than a week off. I told patient that if he does improve with antibiot ics it is very possible that he could be discharged directly from this institution before he would be excepted at [facility]. Patient is vaccinated and has received the booster for COVID-19. Charges/Coding Visit Charges Inpatient E&M: 35578 Subs Hosp L2
[2021-03-28] MEDS: Enoxaparin 40 MG/0.4 ML Syringe SC (08:04)
[2021-03-28] MEDS: Ferrous Sulfate 325 MG Tablet PO ×2 (08:04→20:26)
--- NOTE | 2021-03-28 10:15 | CASEMGMT ---
RN CM Face to Face with patient for initial transition planning/care coordination assessment. RN CM introduced self and role at [facility]. Patient lying in bed, alert and oriented. Patient willing to participate in assessment and is able to answer all questions appropriately. Care providers, pharmacy, and demographics verified. Patient wishes to discharge home, denies need for home health at this time. Patient states he has no further needs or concerns at this time. CM to follow for discharge planning needs that may arise. PCP: Rory Specialists: Aliya psych social worker MARSHALL Fair Preferred Pharmacy: [facility] retail at discharge. Insurance: MMO Prescription Benefit: yes Living Will/HPOA: yes, Lexi Aguirre HPOA LNOK: daughter Living Arrangements: Patient lives alone in a second floor apartment. Patient is independent and able to ambulate stairs. Transportation: self, daughter DME/HHC: Patient denies previous HHC or SNF. Disposition Plan: Patient to discharge home with family support and follow-up plans in place. Alyssia EASTMAN, RN, CM
[2021-03-28 10:19] VITALS: BP 112/56; PULSE 78; RESP 18; TEMP 37.6
[2021-03-28 11:54] VITALS: BP 137/61; PULSE 93; RESP 16; TEMP 38.3; O2SAT 95
[2021-03-28] MEDS: Acetaminophen 325 MG Tablet 650 MG PO ×2 (11:58→20:26)
[2021-03-28 16:16] VITALS: BP 112/63; PULSE 82; RESP 18; TEMP 35.8; O2SAT 96
[2021-03-28] MEDS: Atorvastatin Calcium 40 MG Tablet PO (20:26)
[2021-03-28] MEDS: oxyCODONE 5 MG Tablet PO (20:27)
[2021-03-28 20:33] VITALS: BP 114/73; PULSE 81; RESP 20; TEMP 37.1; O2SAT 95
[2021-03-29 02:17] VITALS: BP 119/75; PULSE 78; RESP 16; TEMP 36.9; O2SAT 96
[2021-03-29] MEDS: 0.9% Normal Saline 1,000 ML 150 ML IV (06:27)
[2021-03-29] MEDS: oxyCODONE 5 MG Tablet PO (06:41)
[2021-03-29] MEDS: Acetaminophen 325 MG Tablet 650 MG PO (06:41)
--- NOTE | 2021-03-29 07:46 | CON.PCM.UR_ITS ---
Assessment & Plan Assessment/Plan (1) Orchitis and epididymitis: HPI Consult Data Date of Consult: 03/29/21 HPI Narrative HPI Narrative: FAYE VAUGHN, is a 70 M who presents to the hospital with an orchitis in the right testicle he had a radical prostatectomy and needed a catheter for 6 weeks to allow the anastomosis to heal since he self caths. He came in with orchitis of the testicle he has a swollen firm right testicle but no abscess pocket no signs of fluctuance. His white blood count is back down to 12 he has no fevers. I think he can be discharged home with Levaquin for another 10 days and can follow-up as an outpatient with his urologist. Call me with questions. [facility] Medical History High cholesterol History of prostate cancer History of skin cancer Home Medications atorvastatin 40 mg PO DAILY 03/26/21 [History Last Taken 03/27/21 08:00 40 mg] ferrous sulfate [FeroSul] 325 mg PO BID 03/26/21 [History Last Taken 03/27/21 08:00 325 mg] hydrocodone-acetaminophen 1 tab PO Q6H PRN 3 Days #10 tab 03/26/21 [Rx Last Taken Unknown] levofloxacin 500 mg PO DAILY #9 tab 03/26/21 [Rx Last Taken 03/27/21 08:00 500 mg] Allergy/AdvReac Type Severity Reaction Status Date / Time cephalexin AdvReac Pain in Verified 03/27/21 21:14 joints Surgical History H/O prostatectomy Social History Smoking Status: Former smoker Physical Exam Const alert and oriented x3 General Appearance: cooperative HEENT normocephalic, head/scalp atraumatic, EAC's normal and TM's normal bilaterally Eyes PERRL and EOMs intact bilaterally Pupil: sluggish Neck no lymphadenopathy, supple and no JVD General: trachea midline Lymph Lymphatic: no lymphadenopathy noted, lymphedema and lymphadenopathy Resp normal respiratory effort, normal air movement and clear to auscultation bilaterally Cardio regular rate, regular rhythm and peripheral pulses 2+ throughout GI soft to palpation, non-tender and non-distended Narrative: right testicle swollen sore but no erythema, no abcess. Extremity normal capillary refill and no clubbing, cyanosis or edema General Extremity: no tenderness to palpation of joints or extremities Skin no rashes or lesions noted General Skin Exam: turgor normal Lesions: no lesions Rashes: no rashes Neuro CN's II-XII intact bilaterally Speech: speech normal Motor Exam: strength 5/5 throughout; Negative for general weakness Psych thought process normal, cooperative and affect normal Appearance: appropriate Lab / Micro Data Result Diagrams: 03/28/21 06:30 03/28/21 06:30 Labs: Laboratory Results - last 24 hr 03/28/21 06:30: Sodium 138, Potassium 3.7, Chloride 106, Carbon Dioxide 25.0, Anion Gap 7, BUN 18, Creatinine 1.03, Estim Creat Clear Calc 66.73, Est GFR (MDRD) Af Amer 92, Est GFR (MDRD) Non-Af 76, BUN/Creatinine Ratio 17.5, Glucose 158 H, Calcium 8.6, Total Bilirubin 0.60, AST 110 H, ALT 24, Alkaline Phosphatase 99, Total Protein 6.2 L, Albumin 2.4 L, Globulin 3.8, Albumin/Globulin Ratio 0.6 L
[2021-03-29] MEDS: Atorvastatin Calcium 40 MG Tablet PO (08:43)
[2021-03-29] MEDS: Enoxaparin 40 MG/0.4 ML Syringe SC (08:43)
[2021-03-29] MEDS: Ferrous Sulfate 325 MG Tablet PO (08:43)
[2021-03-29 08:46] VITALS: BP 122/74; PULSE 86; RESP 16; TEMP 37; O2SAT 95
--- NOTE | 2021-03-29 10:37 | DCINST_ITS ---
Discharge Instructions Diet Discharge Diet: Low fat / Low cholesterol Activity Discharge Activity: May Not Drive Weight Bearing Status: Weight bearing as tolerated Additional Activity Instructions:: Using scrotal support from local pharmacy Dressing / Incision Call your doctor if you observe: Fever of 101 or Higher, Coldness, Increased Pain, Numbness or Tingling, Change in Color, Inability to urinate, Inability to have a bowel movement, Shortness of breath, Dizziness, Fainting spells, Swelling in the ankles, Chest pain, Prolonged hiccupping, Increased palpitations (irregu lar heartbeat), Calf discomfort and Uncontrolled pain Follow Up Care Test Results: Test results from this visit will be discussed in further detail at your follow-up appointment, if applicable. Discharge Plan Admission Admit Date/Time: 03/27/21 19:06 Primary Reason for Your Visit: Right-sided epididymoorchitis after surgery Attending Provider: Brett Garcia Primary Care Provider: Erasmo Valadez Consulting Providers: Phan Desai Instructions Additional Instructions / Restrictions: Follow-up urologist Dr. العراقي in 1-2 weeks Use scrotal support. Maintain perineal hygiene. Discharge Orders/Prescriptions Prescriptions: New oxycodone-acetaminophen [Percocet] 5-325 mg tablet 1 tab PO Q6H PRN (Reason: pain) 3 Days Qty: 10 RF: 0 Continued atorvastatin 40 mg tablet 40 mg PO DAILY RF: 0 levofloxacin 500 mg tablet 500 mg PO DAILY Qty: 7 RF: 0 Changed ferrous sulfate [FeroSul] 325 mg (65 mg iron) tablet 325 mg PO DAILY Qty: 0 RF: 0 Discontinued hydrocodone-acetaminophen 5-325 mg tablet 1 tab PO Q6H PRN (Reason: pain) 3 Days Qty: 10 RF: 0 Referrals / Follow Up: Erasmo Valadez MD [Primary Care Provider] - In 1 Week (Severe intractable scrotal pain) Disposition Disposition (needs filled in before D/C Order can be placed): Home, Self Care
--- NOTE | 2021-03-29 10:45 | PCM.DC.SUM ---
Providers Date of Admission: 03/27/21 Primary Care Physician: Dr. Erasmo Valadez MD Consultations 03/27/21 20:10 Consult: Urology Routine Consulting Provider: Phan Desai Reason for Consult: orchitis EMERGENT Consult: No Notified: Yes Date Notified: 03/27/21 Time Notified: 16:00 Method of Notification: Answering Service Method of Consult:: In-Person Comments:: spoke with front end ui developer of Dr. Desai's office 03/28/21 16:35 Consult: Urology Routine Consulting Provider: Phan Desai Reason for Consult: RIGHT EPIDIDYMORCHITIS. Recent prostatectomy about 6 weeks ago, urine incon EMERGENT Consult: No Notified: Yes Date Notified: 03/28/21 Time Notified: 16:36 Method of Notification: Verbal Reason For Visit: ORCHITIS Diagnosis Discharge Diagnosis (1) Orchitis and epididymitis: Status: Acute Code(s): N45.3 - Epididymo-orchitis Medications at Discharge Home Medications atorvastatin 40 mg PO DAILY 03/26/21 ferrous sulfate [FeroSul] 325 mg PO DAILY #0 tab 03/29/21 levofloxacin 500 mg PO DAILY #7 tab 03/29/21 oxycodone-acetaminophen [Percocet] 1 tab PO Q6H PRN 3 Days #10 tab 03/29/21 Hospital Course Summary of Care Provided Hospital Course: This 70-year-old gentleman was admitted with severe intractable scrotal pain, swelling tenderness with constant tripling of urine. Patient had radical prostatectomy 6 weeks ago for prostate cancer and had urine catheter removed on 03/24. Patient follows with urologist Dr. العراقي. Patient was admitted as he came back again to ER after given prescription for Levaquin on past Sunday. [facility] floor. Started on broad-spectrum antibiotic IV vancomycin and Zosyn. Urine culture shows Klebsiella pneumoniae more than 100,000 colony, pansensitive, ESBL negative. Testicular ultrasound reported right epididymoorchitis. Urologist Dr. Desai consulted. He advised 10 days of Levaquin. Patient already had 3 days of antibiotic therefore discharged on 7 more days of Levaquin. Patient requested Percocet therefore prescription given. Advised follow-up with local urologist and PCP. Discharge medication reconciliation done. Discharge follow-up instructions completed. Discharge process discussed with the patient and all questions were answered to patient's satisfaction. Total time spent, exact 35 minutes on discharge meds reconciliation, examination, coordination of care with nurses and ancillary staff, review of imaging and blood test and discussion with the patient on follow-up instructions Physical Exam Narrative Seen and examined. General: Alert, Oriented x3, Cooperative HEENT: Atraumatic, PERRLA, EOMI, Normocephalic Oral: No Gingival or Mucosal Lesions/ Ulcerations Neck: Supple, No JVD, Negative Carotid Bruits Lungs: Air entry equal in bilateral lung bases. No crepitation/rhonchi Cardiovascular: Regular rate, Regular Rhythm, Normal S1, Normal S2, No murmurs Abdomen: Bowel Sounds Present, Soft, Non Tender, Non-Distended : Decreased/improvement in redness, edema and swelling of right hemiscrotum. Constant dribbling of urine. Extremities: No edema, Capillary Refill Less than 3 Seconds Skin: No rashes, No breakdown Musculoskeletal: No Tenderness to Palpation of Joints or Extremities Neurological: Cranial nerves II-XII grossly intact, DTR 2+/4 and Symmetrical, Neuro grossly intact Psych/Mental Status: Flat affect. HEENT normocephalic Eyes PERRL and EOMs intact bilaterally Neck no lymphadenopathy Resp normal respiratory effort, no retractions, no use of accessory muscles and clear to auscultation bilaterally Cardio regular rate, regular rhythm, S1 normal heart sound and S2 normal heart sound GI normal to inspection, nondistended, normoactive bowel sounds, soft to palpation, non-tender and non-distended GI Narrative: Scrotum without any overt cellulitis but exquisite tenderness to his testes. Testes bilaterally. He does with withdrawn. Does have some noted active incontinence. Extremity normal to inspection Skin no rashes or lesions noted Neuro Sensorium / Orientation: awake and alert Psych affect normal Weight / BMI Weight Weight: 248 lb Body Mass Index (BMI) 36.6 ABG / Lab / Microbiology Data Result Diagrams: 03/28/21 06:30 03/28/21 06:30 D/C Instructions Discharge Diet: Low fat / Low cholesterol Weight Bearing Status: Weight bearing as tolerated Additional Activity Instructions: Using scrotal support from local pharmacy Call your doctor if you observe: Fever of 101 or Higher, Coldness, Increased Pain, Numbness or Tingling, Change in Color, Inability to urinate, Inability to have a bowel movement, Shortness of breath, Dizziness, Fainting spells, Swelling in the ankles, Chest pain, Prolonged hiccupping, Increased palpitations (irregular heartbeat), Calf discomfort and Uncontrolled pain Meaningful Use Info Meaningful Use Diagnoses (Choose all that apply): None applicable Discharge Plan Admission Admit Date/Time: 03/27/21 19:06 Primary Reason for Your Visit: Right-sided epididymoorchitis after surgery Attending Provider: Brett Garcia Primary Care Provider: Erasmo Valadez Consulting Providers: Phan Desai Instructions Additional Instructions / Restrictions: Follow-up urologist Dr. العراقي in 1-2 weeks Use scrotal support. Maintain perineal hygiene. Discharge Orders/Prescriptions Prescriptions: New oxycodone-acetaminophen [Percocet] 5-325 mg tablet 1 tab PO Q6H PRN (Reason: pain) 3 Days Qty: 10 RF: 0 Continued atorvastatin 40 mg tablet 40 mg PO DAILY RF: 0 levofloxacin 500 mg tablet 500 mg PO DAILY Qty: 7 RF: 0 Changed ferrous sulfate [FeroSul] 325 mg (65 mg iron) tablet 325 mg PO DAILY Qty: 0 RF: 0 Discontinued hydrocodone-acetaminophen 5-325 mg tablet 1 tab PO Q6H PRN (Reason: pain) 3 Days Qty: 10 RF: 0 Referrals / Follow Up: Erasmo Valadez MD [Primary Care Provider] - In 1 Week (Severe intractable scrotal pain) Disposition Disposition (needs filled in before D/C Order can be placed): Home, Self Care Charges/Coding Visit Charges Inpatient E&M: 07432 Disch Hosp
[2021-03-29 10:59] LABS: Vancomycin, Trough Level 27.3 ug/mL (5.0-15.0)
--- NOTE | 2021-03-29 14:01 | NURSING ---
placed by Dr. Desai
[2021-03-29 14:56] VITALS: BP 139/79; PULSE 83; RESP 16; TEMP 36.8; O2SAT 95
[2021-03-29] MEDS: Ondansetron 4 MG/2 ML Vial IM (15:41)
== END 2021-03-29 18:21 | disposition home or self-care (01) | DRG 728 ==
LOC: ED 18:19 → MS3 19:36 → MS2 03-28 09:51
PROVIDERS: Emergency Provider Emergency Medicine; PCP Family Medicine; Visit Provider Internal Medicine
DX: N45.3 Epididymo-orchitis (principal); N39.0 Urinary tract infection, site not specified; E78.00 Pure hypercholesterolemia, unspecified; R32 Unspecified urinary incontinence; B96.1 Klebsiella pneumoniae [K. pneumoniae] as the cause of diseases classified elsewhere; Z85.46 Personal history of malignant neoplasm of prostate; Z79.899 Other long term (current) drug therapy; Z87.891 Personal history of nicotine dependence; Z90.79 Acquired absence of other genital organ(s)
CPT/HCPCS: 36415; 76870; 80048; 80053; 80202; 85025; 93976; 97802; 99285; J7030; J7040; A4216; J2405

== ENCOUNTER 2021-05-30 16:00 | Outpatient (RCR) | payer OTHER, SELFPAY ==
--- NOTE | 2021-04-21 08:54 | HP.OTEVAL_ITS ---
Patient's Visit Information FAYE VAUGHN is a 70 year old M, referred to Occupational Therapy by Dr. Taran Stephen MD, with a diagnosis of left MF interphalangeal joint sprain/strain. 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 due to other medical issues that limited his ability to seek care for his right hand. Pt states feeling stiff and sore with movement. pt states he is limited with ADLs and would like to know what he can do to make it feel better and gain more motion. - Pain right hand 3 Pain Intensity Range: 0, 3 - ROM MP: right 70 left 75 PIP: right 90 left 95 DIP: right 45 left 50 ROM Comments: pt demo with extensor tendon pulling of MCP to ulnar side of MCPJ. - Strength Parts Administrator: right 30# left 60# Lateral Pinch: right 10# left 10# Tripod Pinch: right 10# left 12# - Sensation Sensation Comments: denies - Quick DASH-Disab of Arm,Shoulder& Hand Quick DASH Score: 43.3325 - Goals Goal:: pt will demo a increase in right certified surgical technician strength to 50# or greater to return pt to his PLOF with ADL by d.c Goal:: pt will demo a increase in right MF ROM by 10* to increase pts ability to form a composite fist to ind. perform ADLs by dc Goal:: pt will report pain no greater than 1/10 with use of right hand with ADLS by d/c - Rehabilitation General Assessment: pt demo with limited right MF ROM and lateral instability of MF- question lateral band injury- pt demo need for skilled OT services 2-3x week for 4 weeks to return pt to PLOF. pt agrees with POC. Rehabilitation Potential: Good - Anticipated Interventions A/AAROM/PROM, Strengthening, Modalities, Orthoses, Joint Protection/Energy Conservation, Ergonomic Education, Fine Motor Coord/Taras, Education re Diagnosis - Visit Plan Frequency: 2-3x /Week Duration: 4 Weeks TEXT: Thank you for the opportunity to evaluate your patient. For Medicare and Medicare HMO plans, please review the plan of care and approve it. It will need to be FAXED BACK to us at [phone] for Medicare purposes. Please let me know if there are questions or concerns regarding this plan of care. Physician Signature: Date:
--- NOTE | 2021-05-27 08:21 | OTREVAL_ITS ---
Dr. Taran Stephen MD, It has been my pleasure to treat FAYE VAUGHN over the last 10 visits for left MF interphalangeal joint sprain/strain. Please see the progress note below for an update on the occupational therapy plan of care! Subjective: pt states he has not made gains with his abilities- still has pain with certain ROM and resistance like pusing done on keys of computer or nicholas register. Objective/Function: pt continues to demo lateral instability at right MCPJ- of right MF, pain with ROM and resistance-pt at rest right MF deviates at MPJ 15* from midline at rest pt can realine to N. with pain-. pt would benefit from possible imaging to R/O ligament or confirm OA. no change in pts contact lens lathe operator or pinch strength at this time. Plan Visits in this POC: rec'd return to for further dx or imaging Plan: cont US. use of dylan tape. try radial deviation of MF with band. rec'd return to for more dx Goals - Goals Patient Goals: Regain Mobility, Decrease Pain, Be More Independent in ADLS Goal:: pt will demo a increase in right contact lens lathe operator strength to 50# or greater to return pt to his PLOF with ADL by d.c Goal:: pt will demo a increase in right MF ROM by 10* to increase pts ability to form a composite fist to ind. perform ADLs by dc Goal:: pt will report pain no greater than 1/10 with use of right hand with ADLS by d/c Anticipated Interventions Anticipated Interventions: A/AAROM/PROM, Strengthening, Modalities, Orthoses, Joint Protection/Energy Conservation, Ergonomic Education, Fine Motor Coord/Taras, Education re Diagnosis Please do not hesitate to contact me at [phone] by phone or if you have questions or concerns regarding this new plan of care! Sincerely, Lucy Whatley, OTR/L, CHT
--- NOTE | 2021-08-26 08:50 | HP.OTDCSUM ---
It has been my pleasure to treat FAYE VAUGHN under orders from Dr. Taran Stephen MD, for the diagnosis of left MF interphalangeal joint sprain/strain for a total of 11 visit(s). Please see the following information for a summary of their discharge status. % Improvement: 20 Objective/Function: pt continues to demo lateral instability at right MCPJ- of right MF, pain with ROM and resistance-pt at rest right MF deviates at MPJ 15* from midline at rest pt can reline to N. with pain-. pt would benefit from possible imaging to R/O ligament or confirm OA. no change in pts family nurse practitioner or pinch strength at this time. Therapist is rec'd pt return to . pt d.c. Patient Goals: Regain Mobility, Decrease Pain, Be More Independent in ADLS Goal:: pt will demo a increase in right family nurse practitioner strength to 50# or greater to return pt to his PLOF with ADL by d.c Goal:: pt will demo a increase in right MF ROM by 10* to increase pts ability to form a composite fist to ind. perform ADLs by dc Goal:: pt will report pain no greater than 1/10 with use of right hand with ADLS by d/c Plan: cont US. use of dylan tape. try radial deviation of MF with band. rec'd return to for more dx If there are questions or concerns regarding this patient's occupational therapy, please fell free to call me at [phone]. Thank you for the referral of this patient. Sincerely, Lucy Whatley, OTR/L, CHT
== END 2021-05-30 19:00 | disposition home or self-care (01) ==
LOC: OT 16:00
PROVIDERS: PCP Family Medicine; Referring Provider Orthopaedic Surgery; Visit Provider Orthopaedic Surgery
DX: S63.632D Sprain of interphalangeal joint of right middle finger, subsequent encounter (principal); X58.XXXD Exposure to other specified factors, subsequent encounter
CPT/HCPCS: 97035; 97110; 97140; 97166; 97530

== ENCOUNTER 2021-05-31 09:33 | Inpatient (IN) | payer OTHER, MEDICARE, SELFPAY ==
[2021-05-31] VITALS (11 sets, daily range): BP systolic 135–184; BP diastolic 64–100; PULSE 60–92; RESP 16–26; TEMP 36–37.2; O2SAT 94–99; BMI 37.6; BMI 36.5
--- NOTE | 2021-05-31 10:00 | RAD_ITS ---
STUDY: X-RAY CHEST REASON FOR EXAM: Male, 70 years old. Chest pain TECHNIQUE: Single AP portable view of the chest. COMPARISON: None. FINDINGS: EKG electrodes are seen. Thoracic congestion and mild CHF. Elevation of the right hemidiaphragm. Increased markings at the right lung base suggestive of either atelectasis and/or early infiltrate. There is moderate cardiac enlargement. Normal mediastinum and helio. Normal visualized pulmonary arteries. There is atherosclerotic calcification of the aortic arch with tortuosity. There are diffuse degenerative changes of the visualized thoracic spine. Normal visualized ribs, clavicles, and shoulders. There is no demonstrated abnormality of the visualized soft tissue structures of the upper abdomen. RAD/Chest 1 View (Portable) IMPRESSION: Cardiomegaly. Vascular congestion. Increased markings at the right lung base suggestive of atelectasis and/or early infiltrate. Electronically Signed: Sean Braga MD at 10:50 EST ,
--- NOTE | 2021-05-31 10:02 | EKG12_ITS ---
Test Reason : SOB/CHEST PRESSUE Blood Pressure : / mmHG Vent. Rate : 084 BPM Atrial Rate : 084 BPM P-R Int : 144 ms QRS Dur : 088 ms QT Int : 364 ms P-R-T Axes : 071 082 118 degrees QTc Int : 430 ms Normal sinus rhythm Possible LAE Nonspecific ST and T wave abnormality Septal infarct , age undetermined Abnormal ECG Confirmed by LISSETTE LUCERO, DAVID ([id number]), features editor [employer]RICK [employer]EL ([id number]) on 06/01/2021 11:52:32 AM Referred By: MATILDE Confirmed By:DAVID MCLAUGHLIN MD
--- NOTE | 2021-05-31 10:02 | ED.VIS.DYS ---
HPI History of Present Illness Chief Complaint: Shortness of Breath Narrative Narrative: Patient presents from his primary care physician's office, Dr. Willingham, for evaluation of shortness of breath and dyspnea on exertion. He relates history that he had anemia with a hemoglobin just above 9 when he had his prostate surgery performed by Dr. العراقي, he started on iron supplements and was taking 2 of them a day. He intermittently had black stool which has resolved. He was taken down to 1 tablet a day when his hemoglobin increased to 11. He states that he developed a UTI after his surgery and was on Levaquin. He stopped that on of last week, approximately 6 days ago. His nausea has resolved. However, he gets dyspnea on exertion and short of breath when walking upstairs. He also gets chest pressure. It is nonradiating. He was being seen by his primary care physician who performed an EKG and said that he had subtle changes/ischemic changes laterally. He was sent for evaluation. He is currently not having any chest pain. It is more the chest pain that he gets along with shortness of breath/dyspnea on exertion. He denies any leg swelling. [facility] Medical History Acute epididymitis Acute UTI High cholesterol History of prostate cancer History of skin cancer Intractable pain Orchitis Orchitis and epididymitis Home Medications atorvastatin 40 mg PO DAILY 03/26/21 [History Last Taken 03/27/21 08:00 40 mg] ferrous sulfate [FeroSul] 325 mg PO DAILY #0 tab 03/29/21 [Rx Last Taken 03/27/21 08:00 325 mg] Allergy/AdvReac Type Severity Reaction Status Date / Time cephalexin AdvReac Pain in Verified 05/31/21 09:33 joints Surgical History H/O prostatectomy Social History Smoking Status: Former smoker ROS ROS ED ROS Narrative Constitutional: No fever, no chills. HEENT: No sore throat. No neck pain. No loss of vision. No rhinorrhea. Cardiovascular: Positive chest pressure/chest pain on exertion. No palpitations. No pedal edema. Respiratory: No cough, positive shortness of breath and dyspnea on exertion. Abdominal: No abdominal pain. No nausea-resolved after finishing Levaquin. No vomiting. Genitourinary: No dysuria. No hematuria. Musculoskeletal: No myalgias. No arthralgias. Neurologic: No headaches. No dizziness. No lightheadedness. Skin: No rash. No change in color. Psychiatric: No depression. No anxiety. EXAM Physical Exam Narrative Exam Narrative: Afebrile. Vital signs noted. HEENT: Normocephalic. Atraumatic. PERRL, EOMI. Neck soft and supple. No point tenderness or step off. Cardiovascular: Regular rate and rhythm. No murmurs, rubs, or gallops appreciated. Respiratory: No tachypnea. Lungs clear to auscultation bilaterally. Gastrointestinal: Abdomen soft, nontender, with normoactive bowel sounds. No rebound or guarding. Neurological: Awake. Alert. Nonfocal, nonlateralizing. Skin: No rash. Normal color. No pallor. Musculoskeletal: No pedal edema. Full range of motion extremities. Const Vital Signs: 05/31/21 09:33 05/31/21 09:48 05/31/21 09:52 Temperature 96.8 F L Temperature Source Temporal Pulse Rate 92 85 Respiratory Rate 18 20 H Respiratory Effort Normal Respiratory Depth Normal Respiratory Pattern Normal Blood Pressure 184/93 H 167/100 H Blood Pressure Mean 123 122 Pulse Ox 99 96 Oxygen Delivery Method Room Air Room Air Room Air 05/31/21 11:06 05/31/21 12:16 Temperature Temperature Source Pulse Rate 67 60 Respiratory Rate 20 H 25 H Respiratory Effort Respiratory Depth Respiratory Pattern Blood Pressure 135/76 H 141/64 H Blood Pressure Mean 95 89 Pulse Ox 95 97 Oxygen Delivery Method Room Air Room Air MDM MDM MDM Narrative Medical decision making narrative: Comprehensive work-up was pursued. His EKG shows normal sinus rhythm at 84 bpm without ectopy or acute ST changes, but he does have ST depression in V5, V6, and lead I. He has normal white count of 7.5, hemoglobin stable at 10.7. Chloride 108. Initial high-sensitivity troponin negative at 53. BNP slightly elevated 519. Chest x-ray shows increased markings at the right lung base suggestive of atelectasis or early infiltrate. Patient has been on Levaquin, he has no cough, no elevated white count, or fever. I do not feel antibiotics are indicated. I calculate his heart score is 4. Given his ST depression which is new for him as seen on an EKG at his primary care provider's office also, I do feel that with his exertional chest pain and his intermediate risk factors that he should be observed in the PCU. I will speak with the hospitalist, Dr. Castano, for assignment to observation. He is in stable condition. Lab Data Attestation: I reviewed the patient's lab results. Labs: Laboratory Results - last 24 hr 05/31/21 05/31/21 05/31/21 10:13 10:13 10:13 WBC 7.5 RBC 3.94 L Hgb 10.7 L Hct 33.5 L MCV 85.0 MCH 27.2 MCHC 31.9 L RDW Std Deviation 46.8 H RDW Coeff of Khoa 15.2 H Plt Count 265 MPV 9.2 Immature Gran % (Auto) 0.400 Neut % (Auto) 78.5 H Lymph % (Auto) 11.4 L [place] % (Auto) 5.4 Eos % (Auto) 3.9 Baso % (Auto) 0.4 Absolute Neuts (auto) 5.9 Absolute Lymphs (auto) 0.85 Nucleated RBC % 0 Sodium 141 Potassium 3.9 Chloride 108 H Carbon Dioxide 26.0 Anion Gap 7 BUN 19 H Creatinine 0.86 Estim Creat Clear Calc 79.93 Est GFR (MDRD) Af Amer 113 Est GFR (MDRD) Non-Af 94 BUN/Creatinine Ratio 22.1 H Glucose 141 H Calcium 9.0 Troponin I High Sens 53 B-Natriuretic Peptide 519.0 H 05/31/21 12:15 WBC RBC Hgb Hct MCV MCH MCHC RDW Std Deviation RDW Coeff of Khoa Plt Count MPV Immature Gran % (Auto) Neut % (Auto) Lymph % (Auto) [place] % (Auto) Eos % (Auto) Baso % (Auto) Absolute Neuts (auto) Absolute Lymphs (auto) Nucleated RBC % Sodium Potassium Chloride Carbon Dioxide Anion Gap BUN Creatinine Estim Creat Clear Calc Est GFR (MDRD) Af Amer Est GFR (MDRD) Non-Af BUN/Creatinine Ratio Glucose Calcium Troponin I High Sens 58 B-Natriuretic Peptide Radiography Diagnostic Testing: Clinical Impression(s) from Imaging Studies Chest X-Ray 02/15/22 10:00 IMPRESSION: Cardiomegaly. Vascular congestion. Increased markings at the right lung base suggestive of atelectasis and/or early infiltrate. Electronically Signed: Sean Braag MD at 10:50 EST , Discharge Plan Dx/Rx/DC Orders Clinical Impression: Chest pain, Nonspecific ST-T wave electrocardiographic changes Disposition Disposition: Acute Care Hospital [facility]
[2021-05-31 10:32] LABS: Absolute Lymphocyte Count 0.85 X10^3/uL (0.83-4.51); Absolute Neutrophil Count 5.9 X10^3/uL (2.0-7.7); Basophil# 0.03 X10^3/uL; Basophil% 0.4 % (0-1); Eosinophil# 0.29 X10^3/uL; Eosinophils% 3.9 % (0-5); Hematocrit 33.5 % (40-54); Hemoglobin 10.7 g/dL (13.0-16.5); Lymphocyte # 0.85 X10^3/ul (0.83-4.51); Lymphocyte % 11.4 % (19-41); Mean Corp Hgb Conc 31.9 g/dL (32-36); Mean Corpuscular Hgb 27.2 pg (27.0-32.0); Mean Platelet Vol. 9.2 fl (6.2-12.0); Monocyte% 5.4 % (0-10); NRBC Flagged by Analyzer 0 % (0-5); Neutrophil # 5.85 X10^3/uL (2.7-7.7); Neutrophil % 78.5 % (47-70); Platelet Count 265 K/mm3 (150-450); RBC Distribution Width CV 15.2 % (11.6-14.6); RBC Distribution Width SD 46.8 fl (35.1-43.9); Red Blood Count 3.94 M/mm3 (4.6-6.2); White Blood Count 7.5 K/mm3 (4.4-11.0)
[2021-05-31 10:49] LABS: Anion Gap 7 (5-15); BUN 19 mg/dL (7-18); BUN/Creat Ratio 22.1 RATIO (10-20); Chloride 108 mmol/L (98-107); Creatinine, Serum 0.86 mg/dL (0.70-1.30); EST Glomerular Filtration Rate 94 mL/min (>60); Est Glom Filt Rate - Afr Amer 113 mL/min (>60); Estimated Creatinine Clearance 79.93 ml/min; Glucose 141 mg/dL (74-106); Potassium 3.9 mmol/L (3.5-5.1); Sodium Level 141 mmol/L (136-145); Troponin-I HS 53 pg/mL (3.0-78.0)
[2021-05-31 12:36] LABS: Troponin-I HS 58 pg/mL (3.0-78.0)
--- NOTE | 2021-05-31 13:30 | HP.PCM.HOS_ITS ---
HPI - General General Date of Admission: 05/31/21 HPI Narrative FAYE VAUGHN, is a 70 M who presents to the hospital with shortness of breath and chest pain. He has been feeling short of breath and some dyspnea on exertion and went to his PCPs office this morning. An EKG there was done and it was read as having new ischemic changes so we sent him over to the hospital for further evaluation. On arrival to the ER he no longer had any chest pain and states that the chest pain and the shortness of breath came with exertion. He has been having shortness of breath and periodic chest pressure for about the last month or so. He thinks that it started when he was placed on Levaquin for an infection after prostate procedure. He has never had any chest pain or shortness of breath like this before. He has no issues with lying down flat. What he has noticed is that over the last week or 2 the periods of shortness of breath and chest pressure with exertion has become more frequent. His PCP was scheduling him for an outpatient stress test when he was evaluated in the office today and sent in to the ER. [facility] Medical History Acute epididymitis Acute UTI High cholesterol History of prostate cancer History of skin cancer Intractable pain Orchitis Orchitis and epididymitis Home Medications atorvastatin 40 mg PO DAILY 03/26/21 [History Last Taken 05/30/21] ferrous sulfate [FeroSul] 325 mg PO DAILY #0 tab 03/29/21 [Rx Last Taken 05/30/21] Allergy/AdvReac Type Severity Reaction Status Date / Time cephalexin AdvReac Pain in Verified 05/31/21 09:33 joints Family History (Updated 05/31/21 @ 14:[address] Sajan Castano MD) Other Cancer Diabetes Surgical History H/O prostatectomy Social History (Updated 05/31/21 @ 13:26 by Suzan Morgan) household members: none housing: apartment Smoking Status: Former smoker ROS Constitutional Constitutional: Denies chills, fatigue, fever(s) or malaise Eyes Eyes: Denies blurry vision ENT HEENT: Denies headache(s) or nasal discharge Cardiovascular Cardiovascular: Denies chest pain, dyspnea on exertion or syncope Respiratory/Chest Respiratory/Chest: Denies cough, shortness of breath at rest or shortness of breath with exertion Gastrointestinal Gastrointestinal: Denies constipation, diarrhea, nausea or vomiting Genitourinary Genitourinary: Denies dysuria Neurologic Neurologic: Denies focal weakness, numbness or tremor(s) Psychiatric Psychiatric: Denies anxiety or depression Vital Signs Vital Signs Vital Signs: 05/31/21 09:33 05/31/21 09:48 05/31/21 09:52 Temperature 96.8 F L Temperature Source Temporal Pulse Rate 92 85 Respiratory Rate 18 20 H Respiratory Effort Normal Respiratory Depth Normal Respiratory Pattern Normal Blood Pressure 184/93 H 167/100 H Blood Pressure Mean 123 122 Blood Pressure Source Blood Pressure Position Blood Pressure Location Pulse Ox 99 96 Oxygen Delivery Method Room Air Room Air Room Air 05/31/21 11:06 05/31/21 12:16 05/31/21 13:01 Temperature 97.8 F Temperature Source Oral Pulse Rate 67 60 79 Respiratory Rate 20 H 25 H 26 H Respiratory Effort Respiratory Depth Respiratory Pattern Blood Pressure 135/76 H 141/64 H 149/75 H Blood Pressure Mean 95 89 99 Blood Pressure Source Blood Pressure Position Blood Pressure Location Pulse Ox 95 97 95 Oxygen Delivery Method Room Air Room Air 05/31/21 13:21 Temperature 97.8 F Temperature Source Oral Pulse Rate 71 Respiratory Rate 18 Respiratory Effort Respiratory Depth Respiratory Pattern Blood Pressure 157/77 H Blood Pressure Mean 103 Blood Pressure Source Monitor Blood Pressure Position Semi-Fowlers Blood Pressure Location Right Arm Pulse Ox 97 Oxygen Delivery Method Room Air Weight Weight: 250 lb 12.8 oz Body Mass Index (BMI) 36.5 Physical Exam Const alert, oriented x3 and no apparent distress General Appearance: cooperative HEENT normocephalic and moist oral mucous membranes Eyes PERRL, EOMs intact bilaterally and conjunctivae normal Neck supple and no JVD Resp normal respiratory effort, no retractions, no use of accessory muscles and clear to auscultation bilaterally Auscultation: Negative for crackles, rales, rhonchi or wheezes Cardio regular rate, regular rhythm, S1 normal heart sound, S2 normal heart sound and no murmurs GI soft to palpation, non-tender and non-distended; Negative for hepatosplenomegaly Extremity no clubbing, cyanosis or edema Skin no rashes or lesions noted Neuro no focal motor deficits and no sensory deficits noted Psych affect normal Appearance: appropriate Results Lab / Micro Data Result Diagrams: 05/31/21 10:13 05/31/21 10:13 Labs: Laboratory Results - last 24 hr 05/31/21 10:13: WBC 7.5, RBC 3.94 L, Hgb 10.7 L, Hct 33.5 L, MCV 85.0, MCH 27.2, MCHC 31.9 L, RDW Std Deviation 46.8 H, RDW Coeff of Khoa 15.2 H, Plt Count 265, MPV 9.2, Immature Gran % (Auto) 0.400, Neut % (Auto) 78.5 H, Lymph % (Auto) 11.4 L, [place] % (Auto) 5.4, Eos % (Auto) 3.9, Baso % (Auto) 0.4, Absolute Neuts (auto) 5.9, Absolute Lymphs (auto) 0.85, Nucleated RBC % 0 05/31/21 10:13: Sodium 141, Potassium 3.9, Chloride 108 H, Carbon Dioxide 26.0, Anion Gap 7, BUN 19 H, Creatinine 0.86, Estim Creat Clear Calc 79.93, Est GFR (MDRD) Af Amer 113, Est GFR (MDRD) Non-Af 94, BUN/Creatinine Ratio 22.1 H, Glucose 141 H, Calcium 9.0, Troponin I High Sens 53 05/31/21 10:13: B-Natriuretic Peptide 519.0 H 05/31/21 12:15: Troponin I High Sens 58 Radiology Impression Chest X-Ray 05/31/21 10:00 IMPRESSION: Cardiomegaly. Vascular congestion. Increased markings at the right lung base suggestive of atelectasis and/or early infiltrate. Electronically Signed: Sean Braga MD at 10:50 EST , Assessment & Plan Assessment/Plan (1) Chest pain: PLAN: 1. Chest pain/hyperlipidemia ?We will obtain serial troponins and if they remain negative, will obtain a stress test in the morning, if they become positive can consult cardiology ?Denies any chest pain or chest pressure at this time, denies any shortness of breath. Says that it only happens with activity such ?Continue with his Lipitor and his home iron ?We will continue to monitor his blood pressure, he is not on any medications for hypertension at this time ?His EKG does show mild depressions in the lateral leads however there is no prior to compare to in our system 2. Iron deficiency anemia ?Hemoglobin is stable at 10.7 ?Continue with iron 3. History of prostate cancer ?He had a prostatectomy and then was placed on Levaquin secondary to Klebsiella infection colitis when he came into the hospital in March ?He will need to follow-up with his urologist and oncology as an outpatient for his precancerous lesions. DVT: Ambulation Charges/Coding Visit Charges OBSV E&M: 30763 Initial observation care L3
[2021-05-31 17:10] LABS: Troponin-I HS 58 pg/mL (3.0-78.0)
[2021-06-01] VITALS (11 sets, daily range): BP systolic 122–153; BP diastolic 63–81; PULSE 59–77; RESP 16–18; TEMP 36.6–36.8; O2SAT 94–100
[2021-06-01 05:18] LABS: Absolute Lymphocyte Count 1.12 X10^3/uL (0.83-4.51); Absolute Neutrophil Count 4.2 X10^3/uL (2.0-7.7); Basophil# 0.03 X10^3/uL; Basophil% 0.5 % (0-1); Eosinophil# 0.37 X10^3/uL; Eosinophils% 5.8 % (0-5); Hematocrit 30.9 % (40-54); Hemoglobin 10.2 g/dL (13.0-16.5); Lymphocyte # 1.12 X10^3/ul (0.83-4.51); Lymphocyte % 17.7 % (19-41); Mean Corpuscular Hgb 27.6 pg (27.0-32.0); Mean Corpuscular Volume 83.7 fL (80-94); Mean Platelet Vol. 9.5 fl (6.2-12.0); Monocyte# 0.55 X10^3/uL; Monocyte% 8.7 % (0-10); NRBC Flagged by Analyzer 0 % (0-5); Neutrophil # 4.23 X10^3/uL (2.7-7.7); Neutrophil % 66.8 % (47-70); Platelet Count 232 K/mm3 (150-450); RBC Distribution Width CV 15.3 % (11.6-14.6); RBC Distribution Width SD 46.4 fl (35.1-43.9); Red Blood Count 3.69 M/mm3 (4.6-6.2); White Blood Count 6.3 K/mm3 (4.4-11.0)
[2021-06-01 05:52] LABS: Anion Gap 5 (5-15); BUN 20 mg/dL (7-18); BUN/Creat Ratio 20.8 RATIO (10-20); Calcium,Total 8.6 mg/dL (8.5-10.1); Chloride 108 mmol/L (98-107); Creatinine, Serum 0.96 mg/dL (0.70-1.30); EST Glomerular Filtration Rate 82 mL/min (>60); Est Glom Filt Rate - Afr Amer 99 mL/min (>60); Glucose 128 mg/dL (74-106); Potassium 3.7 mmol/L (3.5-5.1); Sodium Level 139 mmol/L (136-145)
--- NOTE | 2021-06-01 05:55 | EKG12_ITS ---
Test Reason : AM EKG Blood Pressure : / mmHG Vent. Rate : 062 BPM Atrial Rate : 062 BPM P-R Int : 142 ms QRS Dur : 092 ms QT Int : 410 ms P-R-T Axes : 054 060 131 degrees QTc Int : 416 ms Normal sinus rhythm with sinus arrhythmia Anteroseptal infarct , age undetermined T wave abnormality, consider lateral ischemia Abnormal ECG Confirmed by LISSETTE LUCERO, DAVID ([id number]), editor index PATRICK STEEL ([id number]) on 06/02/2021 9:10:23 AM Referred By: IZZY Confirmed By:DAVID MCLAUGHLIN MD
--- NOTE | 2021-06-01 10:09 | STRESSREP_ITS ---
Stress Test Report Date: 06-01-2021 Procedure: Pharmacologic stress nuclear imaging study Indications: Chest pain; shortness of breath/dyspnea on exertion Consent: Per the patient Procedure: The patient underwent pharmacologic (Regadenoson 0.4mg ) evaluation with a peak heart rate of 94 beats per minute (62%predicted maximal heart rate) and a peak blood pressure of 160/94 mmHg. The baseline ECG demonstrated normal sinus rhythm; poor R wave progression; anterior GA of indeterminate age cannot be excluded; nonspecific ST/T wave abnormality. The peak pharmacologic ECG demonstrated no obvious ECG changes. There were no cardiac dysrhythmias pretest, during pharmacologic infusion, or recovery. There was no complaint of chest discomfort during pharmacologic infusion or recovery. The examination was discontinued secondary to completion of protocol. Impression: 1. Pharmacologic (Regadenoson) evaluation 2. Peak pharmacologic ECG with no obvious ECG changes. 3. There were no cardiac dysrhythmias pretest, during pharmacologic infusion, or recovery. 4. Nuclear images pending Myocardial perfusion imaging study: Technique: The patient was injected with 14.5 millicuries of technetium 99m Cardiolite and subsequently rest SPECT Cardiolite nuclear imaging was obtained in the horizontal long, vertical long, and short axis views. The patient underwent pharmacologic (Regadenoson) evaluation with a peak heart rate of 94 beats per minute (62% percent predicted maximal heart rate) and a peak blood pressure of 160/94 mmHg. The patient was injected with 44.8 millicuries of technetium 99m Cardiolite and subsequently stress SPECT Cardiolite nuclear imaging was obtained in the horizontal long, vertical long, and short axis views. A gated Cardiolite study at peak stress was obtained. Interpretation: Rest and stress SPECT Cardiolite nuclear imaging status post realignment, normalization, and attenuation correction demonstrate status post attenuation correction the appearance at rest of subtle diminished tracer uptake in the mid to distal inferolateral segments which status post stress appears to be more prominent. There is diminished end-systolic thickening and inward wall motion. The gated Cardiolite study demonstrates diminished myocardial thickening and inward wall motion. The reported LVEF is 41%. Impression: 1. Rest and stress SPECT her nuclear imaging demonstrate myocardial perfusion changes concerning for an area of stress-induced myocardial ischemia in portions of the mid to distal inferolateral segments, however, an element of soft tissue attenuation/artifact cannot necessarily be excluded. 2. The gated Cardiolite study reports an LVEF of 41%. This note was generated with [employer]ation software. It may contain incorrect words, spelling, and punctuation that were not noted in checking the note before signing.
--- NOTE | 2021-06-01 10:20 | ECHOCS_ITS ---
Reason For Study: Chest Pain Procedure This was a 2D Doppler, Color Flow transthoracic echocardiogram. The study was technically difficult. Contrast injection was performed. Exam performed portable in patient room. Left Ventricle Normal LV size. Moderate concentric left ventricular hypertrophy. Mild segmental systolic dysfunction (see wall motion). The estimated ejection fraction is 40 %. Infero-Basal: Hypokinetic. Mid-Anterior : Hypokinetic. Mid-Lateral : Hypokinetic. Mid-Posterior: Hypokinetic. Mid-Inferior: Hypokinetic. Mid-inferoseptal : Hypokinetic. Anterior Annabella : Hypokinetic. Inferior Annabella : Akinetic. Lateral Annabella : Hypokinetic. Septal Annabella : Hypokinetic. Right Ventricle Normal RV size. Normal systolic function. Atria The left atrium is moderately enlarged. Normal right atrium. No doppler evidence for ASD. Mitral Valve There is mild to moderate mitral annular calcification. Mild focal mitral valve calcification of the anterior leaflet. Moderate (2+) eccentric mitral valve insufficiency. Tricuspid Valve Normal tricuspid valve. Mild tricuspid valve insufficiency. Unable to estimate RV systolic pressure/pulmonary artery pressure due to technically difficult study. Aortic Valve Trisinus/trileaflet aortic valve. Mild diffuse aortic valve thickening. Mild diffuse aortic valve calcification. Mild aortic stenosis. Pulmonic Valve The pulmonic valve is not well visualized. Trivial pulmonic valve insufficiency. Great Vessels Normal sized aortic root. Pericardium/Pleural Trivial pericardial effusion. There are no echocardiographic indications of cardiac tamponade. Medication Diluted definity 2ml given slow IV push to enhance endocardial definition. MMode/2D Measurements & Calculations LVIDd: 5.1 cm IVSd: 1.7 cm LVOT diam: 2.0 cm LVIDs: 4.2 cm LVPWd: 1.6 cm RVDd: 3.9 cm FS: 16.7 % LVOT area: 3.3 cm2 Ao root diam: 3.7 cm LAV(MOD-bp): 83.7 ml Aortic Valve Planimetry: 0.76 cm2 ACS: 0.47 cm LAV(MOD-bp) Indexed: 36.8 ml/m2 LA dimension: 5.9 cm LAV(MOD-sp2): 82.3 ml LAV(MOD-sp4): 83.5 ml LA A4 area: 24.7 cm2 RA A4 area: 17.0 cm2 Time Measurements MV dec time: 0.25 sec Doppler Measurements & Calculations MV E max timothy: 153.5 cm/sec Lat Peak E' Timothy: 5.5 cm/sec Med Peak E' Timothy: 4.6 cm/sec MV A max timothy: 91.9 cm/sec E/E' lat: 28.0 E/E' med: 33.5 MV E/A: 1.7 MV V2 max: 152.1 cm/sec MV P1/2t max timothy: 152.7 cm/sec Ao V2 max: 298.7 cm/sec MV max P.2 mmHg MV P1/2t: 77.6 msec Ao max P.7 mmHg MV V2 mean: 70.4 cm/sec MV dec slope: 576.2 cm/sec2 Ao V2 mean: 208.7 cm/sec MV mean P.6 mmHg Ao mean P.8 mmHg MV V2 VTI: 48.9 cm MVA(P1/2t): 2.8 cm2 Ao V2 VTI: 68.5 cm MVA(VTI): 2.3 cm2 MERRITT(I,D): 1.6 cm2 MERRITT(V,D): 1.6 cm2 LV V1 max: 143.8 cm/sec MR max timothy: 469.3 cm/sec SV(LVOT): 110.8 ml LV V1 max P.1 mmHg MR max P.1 mmHg LV V1 mean P.0 mmHg MR mean timothy: 371.2 cm/sec LV V1 mean: 108.2 cm/sec MR mean P.5 mmHg LV V1 VTI: 33.9 cm MR VTI: 162.4 cm PA V2 max: 100.2 cm/sec PI end-d timothy: 128.1 cm/sec ECHO/Echo Complete W/ Contrast Interpretation Summary The study was technically difficult. Contrast injection was performed. Mild segmental systolic dysfunction (see wall motion). The estimated ejection fraction is 40 %. Moderate concentric left ventricular hypertrophy. The left atrium is moderately enlarged. There is mild to moderate mitral annular calcification. Mild focal mitral valve calcification of the anterior leaflet. Moderate (2+) eccentric mitral valve insufficiency. Mild tricuspid valve insufficiency. Mild aortic stenosis. Trivial pulmonic valve insufficiency. Trivial pericardial effusion. There are no echocardiographic indications of cardiac tamponade. Unable to estimate RV systolic pressure/pulmonary artery pressure due to techni fernando difficult study. Transmitral diastolic flow velocities suggest diastolic dysfunction (pseudonorm al pattern). Ordering Physician: Sajan Castano Referring Physician: MD Rory Erasmo Performed By: Sundar Mckeon RCS
--- NOTE | 2021-06-01 10:21 | PN.HOSP_ITS ---
Subjective Subjective Doing well, denies any chest pain. Unfortunately had an abnormal stress test and the LVEF on the stress test was 41% and usually these things overestimate the ejection fraction therefore will obtain an echo Objective Data Objective Data Vital Signs: Vital Signs Temp Pulse Resp BP Pulse Ox 97.9 F 68 18 148/78 H 94 06/01/21 05:35 06/01/21 07:50 06/01/21 05:35 06/01/21 05:35 06/01/21 05:35 Oxygen Delivery Method Room Air Weight: 250 lb 12.8 oz Body Mass Index (BMI) 36.5 Intake & Output: Intake and Output for Last 24 Hours 05/31/21 06/01/21 06/02/21 03:59 03:59 03:59 Intake Total 960 / 960 Balance 960 / 960 Lab / Micro Data Result Diagrams: 06/01/21 04:43 06/01/21 04:43 Labs: Laboratory Results - last 24 hr 05/31/21 10:13: WBC 7.5, RBC 3.94 L, Hgb 10.7 L, Hct 33.5 L, MCV 85.0, MCH 27.2, MCHC 31.9 L, RDW Std Deviation 46.8 H, RDW Coeff of Khoa 15.2 H, Plt Count 265, MPV 9.2, Immature Gran % (Auto) 0.400, Neut % (Auto) 78.5 H, Lymph % (Auto) 11.4 L, [place] % (Auto) 5.4, Eos % (Auto) 3.9, Baso % (Auto) 0.4, Absolute Neuts (auto) 5.9, Absolute Lymphs (auto) 0.85, Nucleated RBC % 0 05/31/21 10:13: Sodium 141, Potassium 3.9, Chloride 108 H, Carbon Dioxide 26.0, Anion Gap 7, BUN 19 H, Creatinine 0.86, Estim Creat Clear Calc 79.93, Est GFR (MDRD) Af Amer 113, Est GFR (MDRD) Non-Af 94, BUN/Creatinine Ratio 22.1 H, Glucose 141 H, Calcium 9.0, Troponin I High Sens 53 05/31/21 10:13: B-Natriuretic Peptide 519.0 H 05/31/21 12:15: Troponin I High Sens 58 05/31/21 16:40: Troponin I High Sens 58 02/16/22 04:43: WBC 6.3, RBC 3.69 L, Hgb 10.2 L, Hct 30.9 L, MCV 83.7, MCH 27.6, MCHC 33.0, RDW Std Deviation 46.4 H, RDW Coeff of Khoa 15.3 H, Plt Count 232, MPV 9.5, Immature Gran % (Auto) 0.500, Neut % (Auto) 66.8, Lymph % (Auto) 17.7 L, [place] % (Auto) 8.7, Eos % (Auto) 5.8 H, Baso % (Auto) 0.5, Absolute Neuts (auto) 4.2, Absolute Lymphs (auto) 1.12, Nucleated RBC % 0 06/01/21 04:43: Sodium 139, Potassium 3.7, Chloride 108 H, Carbon Dioxide 26.0, Anion Gap 5, BUN 20 H, Creatinine 0.96, Estim Creat Clear Calc 71.60, Est GFR (MDRD) Af Amer 99, Est GFR (MDRD) Non-Af 82, BUN/Creatinine Ratio 20.8 H, Glucose 128 H, Calcium 8.6 Radiography Diagnostic Testing: Radiology Impression Chest X-Ray 05/31/21 10:00 IMPRESSION: Cardiomegaly. Vascular congestion. Increased markings at the right lung base suggestive of atelectasis and/or early infiltrate. Electronically Signed: Sean Braga MD at 10:50 EST Reading Location ID and State: [facility] / [place] , Service support , Physical Exam Const alert, oriented x3 and no apparent distress General Appearance: cooperative HEENT normocephalic and moist oral mucous membranes Eyes PERRL, EOMs intact bilaterally and conjunctivae normal Neck supple and no JVD Resp normal respiratory effort, no retractions, no use of accessory muscles and clear to auscultation bilaterally Auscultation: Negative for crackles, rales, rhonchi or wheezes Cardio regular rate, regular rhythm, S1 normal heart sound, S2 normal heart sound and no murmurs GI soft to palpation, non-tender and non-distended; Negative for hepatosplenomegaly Extremity no clubbing, cyanosis or edema Skin no rashes or lesions noted Neuro no focal motor deficits and no sensory deficits noted Psych affect normal Appearance: appropriate Assessment & Plan Assessment/Plan (1) Chest pain: PLAN: 1. Chest pain with an abnormal stress test and reduced EF/hyperlipidemia ?Serial troponins peaked at 58 however stress test this morning was abnormal ?We will obtain a cardiology consult and obtain an echo ?Continue with his Lipitor and his home iron ?We will continue to monitor his blood pressure, he is not on any medications for hypertension at this time ?His EKG does show mild depressions in the lateral leads however there is no prior to compare to in our system 2. Iron deficiency anemia ?Hemoglobin is stable ?Continue with iron 3. History of prostate cancer ?He had a prostatectomy and then was placed on Levaquin secondary to Klebsiella infection colitis when he came into the hospital in March ?He will need to follow-up with his urologist and oncology as an outpatient for his precancerous lesions. DVT: Ambulation Charges/Coding Visit Charges OBSV E&M: 70116 Subsequent observation care L2
[2021-06-01] MEDS: Atorvastatin Calcium 40 MG Tablet PO (10:24)
[2021-06-01] MEDS: Ferrous Sulfate 325 MG Tablet PO (10:25)
--- NOTE | 2021-06-01 15:14 | CASEMGMT ---
According to the MMO website, the following are in-network tertiary facilities: [facility], [facility], [facility], [facility], [facility], [facility], [facility], [facility], [facility], and . Candice DE LEON CM
--- NOTE | 2021-06-01 16:14 | CASEMGMT ---
Intro role of CM to patient and [facility] form explained re: Observation status for treatment of chest pain. Explained hospitalization will be paid per his insurance policy for Outpatient billing and condition will continue to be evaluated for Inpt necessity. Also let pt know that [facility] sends paper in the billing packet with their phone number if questions arise. Discussed Pharmacy section of [facility] form and self administered medication guideline. Pt verbalizes understanding and does not have further questions. Form signed, copy made and placed in chart, and original given to pt. Александр SANFORDN RN CM
--- NOTE | 2021-06-01 18:25 | PCM.CONS.C ---
Assessment & Plan Assessment/Plan (1) Angina pectoris: PLAN: The patient has symptoms concerning for angina pectoris. He states the symptoms are mainly with exertional activity. He does have an abnormal ECG, abnormal transthoracic echocardiogram, and an abnormal pharmacologic stress nuclear imaging study. He is being monitored. He is on medical management. He will be asked to initiate additional medical therapy with aspirin. He has been recommended for further evaluation with diagnostic cardiac catheterization. The procedure and risk were discussed with him. He was agreeable to this approach. (2) Cardiomyopathy: PLAN: Based upon the patient's noninvasive imaging studies there is concern of diminished LV wall motion and systolic function and diminished LVEF. This would be compatible with an underlying cardiomyopathy. The etiology is unclear as to whether this is ischemic versus nonischemic based. At the moment the patient will continue medical management. He will continue cardiovascular evaluation as noted. In the interim he will be monitored for any obvious symptoms potentially compatible with acute CHF that would warrant additional medical therapy and care. (3) Aortic valve disorder: PLAN: The patient does have a cardiac murmur. He states he was only recently told of a cardiac murmur. His echocardiogram would suggest an element of aortic valve stenosis. It appears to be mild. This will need to be followed over time by history, exam, and echocardiographic studies. (4) HLD (hyperlipidemia): PLAN: The patient has a history of hyperlipidemia. He will continue lipid-lowering therapy. (5) Abnormal stress test: PLAN: The patient stress test does raise a concern of stress-induced myocardial ischemia. Thus based upon his entire clinical scenario he has been recommended for further evaluation with diagnostic cardiac catheterization. As noted above this was discussed with him and he was agreeable to this approach. Addt'l Comments This note was generated using a voice recognition system and there may be incorrect words, spelling or punctuation that were not noted when reviewing the office note prior to saving. HPI Consult Data Date of Consult: 06/01/21 HPI Narrative HPI Narrative: FAYE VAUGHN, is a 70 year old white male who presents for cardiovascular consultation based upon concerns of symptoms compatible with angina pectoris, and abnormal transthoracic echocardiogram, and an abnormal exercise tolerance test/imaging study superimposed upon a history of underlying hyperlipidemia, prostate carcinoma, and UTI. The patient states that to the best of his knowledge he has no diagnosed cardiovascular disease process. He does not recall undergoing cardiovascular evaluation in the past. He states he underwent prostate surgery in the fall 2020. He was recuperating at home for period of time. He then experienced a UTI. He underwent evaluation care for that. 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 He has noted that when he is up and about and walking and exerting himself he feels a centralized chest pressure as well as becomes more short of breath and dyspneic. He describes symptoms that are somewhat concerning for orthopnea. He has had no lower extremity peripheral pitting edema. He has had no near-syncope or syncope. He initially thought his symptoms may be related to the side effect of the antibiotic he was on-Levaquin. He was evaluated by his PCP. He states his antibiotic was discontinued. His symptoms persisted. He underwent repeat evaluation by his PCP. He states an ECG was performed which was considered abnormal. He was then referred to [facility] for further evaluation. At [facility] she has had troponin I levels performed which have been negative. An ECG demonstrated sinus rhythm with an anteroseptal NH pattern of indeterminate age and T wave changes potentially compatible with myocardial ischemia in the lateral distribution. He is also undergone additional evaluation with a transthoracic echocardiogram and an exercise tolerance test/imaging study. Those studies were considered abnormal. The results are noted below. He is now been referred for further evaluation with cardiovascular consultation for consideration for diagnostic cardiac catheterization. [facility] Medical History (Updated 06/01/21 @ 18:[address] Kash Dueñas MD) Abnormal stress test Acute epididymitis Acute UTI Angina pectoris Aortic valve disorder Cardiomyopathy High cholesterol History of prostate cancer History of skin cancer HLD (hyperlipidemia) Intractable pain Orchitis Orchitis and epididymitis Home Medications atorvastatin 40 mg PO DAILY 03/26/21 [History Last Taken 05/30/21] ferrous sulfate [FeroSul] 325 mg PO DAILY #0 tab 03/29/21 [Rx Last Taken 05/30/21] Allergy/AdvReac Type Severity Reaction Status Date / Time cephalexin AdvReac Pain in Verified 05/31/21 09:33 joints Family History (Updated 05/31/21 @ 14:[address] Sajan Castano MD) Other Cancer Diabetes Surgical History H/O prostatectomy Social History (Updated 05/31/21 @ 13:26 by Suzan Morgan) household members: none housing: apartment Smoking Status: Former smoker ROS Constitutional Constitutional: Reports as per HPI Eyes Eyes: Reports as per HPI ENT HEENT: Reports as per HPI Cardiovascular Cardiovascular: Reports chest pain with activity and dyspnea on exertion Respiratory/Chest Respiratory/Chest: Reports dyspnea on exertion Gastrointestinal Gastrointestinal: Reports as per HPI Genitourinary Genitourinary: Reports as per HPI Musculoskeletal Musculoskeletal: Reports as per HPI Integumentary Integumentary: Reports as per HPI Neurologic Neurologic: Reports as per HPI Physical Exam Const alert, oriented x3 and no apparent distress Orientation / Consciousness: awake HEENT normocephalic, head/scalp atraumatic and hearing grossly normal bilaterally Eyes PERRL, EOMs intact bilaterally and conjunctivae normal Neck full ROM, supple and no JVD Resp clear to auscultation bilaterally Cardio regular rate, regular rhythm, S1 normal heart sound and S2 normal heart sound Heart Sounds: murmur systolic III/ harsh mid left sternal border, LVOT and sternal notch GI normal to inspection, nondistended, normoactive bowel sounds Extremity no pedal edema Neuro oriented x3, moves all extremities, no focal motor deficits and no sensory deficits noted Psych mental status grossly normal Risk Stratification Risk Stratification Applicable: Yes Age >/= 65: Yes >/= 3 CAD Risk Factors (HTN, HLD, DM, family hx of CAD, or current smoker): No Aspirin Use in the Past 7 Days: No Severe Angina (>/= episodes in 24 hours): Yes EKG ST Changes >/= 0.5mm: No Positive Cardiac Marker: No LEATHA Risk Stratification Score: 2 LEATHA % Risk: 8% Risk Procedure Criteria Type of Procedure Procedure Type: Elective Elective Risks - COVID COVID Risk Discussion: The surgeon/proceduralist and patient have discussed in detail the risk of exposure to and/or potential harm posed by the COVID-19 virus with having a surgery/procedure at this time versus the risk of delaying the surgery/procedure. It is not possible to know either the risk of delaying the surgery or procedure or chance of getting an infection with perfect accuracy, but a joint decision was made between the patient and the surgeon/proceduralist to proceed at this time with the scheduled surgery/procedure as indicated on the consent form. Objective Data Vital Signs: Vital Signs Temp Pulse Resp BP Pulse Ox 98.2 F 71 18 140/72 H 100 06/01/21 15:20 06/01/21 16:00 06/01/21 15:20 06/01/21 15:20 06/01/21 15:20 Oxygen Delivery Method Room Air Weight: 250 lb 12.8 oz Body Mass Index (BMI) 36.5 Intake & Output: Intake and Output for Last 24 Hours 05/30/21 05/31/21 06/01/21 23:59 23:59 23:59 Intake Total 600 / 960 360 / 360 Balance 600 / 960 360 / 360 Lab / Micro Data Result Diagrams: 06/01/21 04:43 06/01/21 04:43 Labs: Laboratory Results - last 24 hr 06/01/21 04:43: WBC 6.3, RBC 3.69 L, Hgb 10.2 L, Hct 30.9 L, MCV 83.7, MCH 27.6, MCHC 33.0, RDW Std Deviation 46.4 H, RDW Coeff of Khoa 15.3 H, Plt Count 232, MPV 9.5, Immature Gran % (Auto) 0.500, Neut % (Auto) 66.8, Lymph % (Auto) 17.7 L, [place] % (Auto) 8.7, Eos % (Auto) 5.8 H, Baso % (Auto) 0.5, Absolute Neuts (auto) 4.2, Absolute Lymphs (auto) 1.12, Nucleated RBC % 0 06/01/21 04:43: Sodium 139, Potassium 3.7, Chloride 108 H, Carbon Dioxide 26.0, Anion Gap 5, BUN 20 H, Creatinine 0.96, Estim Creat Clear Calc 71.60, Est GFR (MDRD) Af Amer 99, Est GFR (MDRD) Non-Af 82, BUN/Creatinine Ratio 20.8 H, Glucose 128 H, Calcium 8.6 Cardiology Labs/Tests 06/01/21 04:43: WBC 6.3, RBC 3.69 L, Hgb 10.2 L, Hct 30.9 L, MCV 83.7, MCH 27.6, MCHC 33.0, Plt Count 232, MPV 9.5, Immature Gran % (Auto) 0.500, Neut % (Auto) 66.8, Lymph % (Auto) 17.7 L, [place] % (Auto) 8.7, Eos % (Auto) 5.8 H, Baso % (Auto) 0.5, Absolute Neuts (auto) 4.2, Nucleated RBC % 0 06/01/21 04:43: Sodium 139, Potassium 3.7, Chloride 108 H, Carbon Dioxide 26.0, Anion Gap 5, BUN 20 H, Creatinine 0.96, Est GFR (MDRD) Af Amer 99, Est GFR (MDRD) Non-Af 82, BUN/Creatinine Ratio 20.8 H, Glucose 128 H, Calcium 8.6 Rhythm: Sinus rhythm EKG: As noted above ECHO: Interpretation Summary The study was technically difficult. Contrast injection was performed. Mild segmental systolic dysfunction (see wall motion). The estimated ejection fraction is 40 %. Moderate concentric left ventricular hypertrophy. The left atrium is moderately enlarged. There is mild to moderate mitral annular calcification. Mild focal mitral valve calcification of the anterior leaflet. Moderate (2+) eccentric mitral valve insufficiency. Mild tricuspid valve insufficiency. Mild aortic stenosis. Trivial pulmonic valve insufficiency. Trivial pericardial effusion. There are no echocardiographic indications of cardiac tamponade. Unable to estimate RV systolic pressure/pulmonary artery pressure due to technically difficult study. Transmitral diastolic flow velocities suggest diastolic dysfunction (pseudonormal pattern). Stress Test: Stress Test Report Date: 06-01-2021 Procedure: Pharmacologic stress nuclear imaging study Indications: Chest pain; shortness of breath/dyspnea on exertion Consent: Per the patient Procedure: The patient underwent pharmacologic (Regadenoson 0.4mg ) evaluation with a peak heart rate of 94 beats per minute (62%predicted maximal heart rate) and a peak blood pressure of 160/94 mmHg. The baseline ECG demonstrated normal sinus rhythm; poor R wave progression; anterior NH of indeterminate age cannot be excluded; nonspecific ST/T wave abnormality. The peak pharmacologic ECG demonstrated no obvious ECG changes. There were no cardiac dysrhythmias pretest, during pharmacologic infusion, or recovery. There was no complaint of chest discomfort during pharmacologic infusion or recovery. The examination was discontinued secondary to completion of protocol. Impression: 1. Pharmacologic (Regadenoson) evaluation 2. Peak pharmacologic ECG with no obvious ECG changes. 3. There were no cardiac dysrhythmias pretest, during pharmacologic infusion, or recovery. 4. Nuclear images pending Myocardial perfusion imaging study: Technique: The patient was injected with 14.5 millicuries of technetium 99m Cardiolite and subsequently rest SPECT Cardiolite nuclear imaging was obtained in the horizontal long, vertical long, and short axis views. The patient underwent pharmacologic (Regadenoson) evaluation with a peak heart rate of 94 beats per minute (62% percent predicted maximal heart rate) and a peak blood pressure of 160/94 mmHg. The patient was injected with 44.8 millicuries of technetium 99m Cardiolite and subsequently stress SPECT Cardiolite nuclear imaging was obtained in the horizontal long, vertical long, and short axis views. A gated Cardiolite study at peak stress was obtained. Interpretation: Rest and stress SPECT Cardiolite nuclear imaging status post realignment, normalization, and attenuation correction demonstrate status post attenuation correction the appearance at rest of subtle diminished tracer uptake in the mid to distal inferolateral segments which status post stress appears to be more prominent. There is diminished end-systolic thickening and inward wall motion. The gated Cardiolite study demonstrates diminished myocardial thickening and inward wall motion. The reported LVEF is 41%. Impression: 1. Rest and stress SPECT her nuclear imaging demonstrate myocardial perfusion changes concerning for an area of stress-induced myocardial ischemia in portions of the mid to distal inferolateral segments, however, an element of soft tissue attenuation/artifact cannot necessarily be excluded. 2. The gated Cardiolite study reports an LVEF of 41%. Radiography Diagnostic Testing: Radiology Impression Echocardiogram 06/01/21 10:20 Interpretation Summary The study was technically difficult. Contrast injection was performed. Mild segmental systolic dysfunction (see wall motion). The estimated ejection fraction is 40 %. Moderate concentric left ventricular hypertrophy. The left atrium is moderately enlarged. There is mild to moderate mitral annular calcification. Mild focal mitral valve calcification of the anterior leaflet. Moderate (2+) eccentric mitral valve insufficiency. Mild tricuspid valve insufficiency. Mild aortic stenosis. Trivial pulmonic valve insufficiency. Trivial pericardial effusion. There are no echocardiographic indications of cardiac tamponade. Unable to estimate RV systolic pressure/pulmonary artery pressure due to technically difficult study. Transmitral diastolic flow velocities suggest diastolic dysfunction (pseudonormal pattern). Ordering Physician: Sajan Castano Referring Physician: MD Rory Erasmo Performed By: Sundar Mckeon RCS Cardiology Labs/Tests Cardiology Labs/Tests: As noted above.
[2021-06-01] MEDS: Aspirin 325 MG Tablet PO (19:17)
[2021-06-01] MEDS: Carvedilol 3.125 MG TABLET PO (22:07)
[2021-06-02] VITALS (19 sets, daily range): BP systolic 129–155; BP diastolic 64–95; PULSE 57–74; RESP 16–18; TEMP 36.2–36.8; O2SAT 94–100
[2021-06-02] MEDS: 0.9% Saline Lock 10 ML Syringe IV (03:36)
--- NOTE | 2021-06-02 05:55 | EKG12_ITS ---
Test Reason : AM EKG Blood Pressure : / mmHG Vent. Rate : 059 BPM Atrial Rate : 059 BPM P-R Int : 138 ms QRS Dur : 090 ms QT Int : 400 ms P-R-T Axes : 057 082 132 degrees QTc Int : 396 ms Sinus bradycardia Anteroseptal infarct , age undetermined T wave abnormality, consider lateral ischemia Abnormal ECG When compared with ECG of 01-JUN-2021 05:14, MANUAL COMPARISON REQUIRED, DATA IS UNCONFIRMED Confirmed by ANDRY LUCERO, BUD ([id number]), purchase request editor PATRICK [employer]EL ([id number]) on 06/06/2021 1:28:50 PM Referred By: IZZY Confirmed By:TIANNA WILDE MD
[2021-06-02] MEDS: Lisinopril 5 MG Tablet PO (06:40)
[2021-06-02] MEDS: Carvedilol 3.125 MG TABLET PO ×2 (06:40→21:12)
[2021-06-02] MEDS: Aspirin 81 MG TAB.CHEW PO (06:40)
--- NOTE | 2021-06-02 08:49 | CL.D_ITS ---
Patient Name: FAYE VAUGHN Study Date: 06/02/2021 Performing: Kash Dueñas MD Ht: 70 inches 177 cm : 1950 Wt: 251.7 lbs 114 kg Age: 70 Gender: male BSA: 2.29 PROCEDURE(S) PERFORMED [id number])[facility] CLINICAL PROFILE AND INDICATIONS Indications: Worsening Angina, Cardiomyopathy, Suspected CAD Heart Failure: None Stress/Imaging Date: 06/01/2021tress Test with SPECT MPI: Positive High Risk Angina Classification Anginal Classification w/in 2 Weeks: CCS III CAD Presentations: Stable angina. CONCLUSIONS [place] Multivessel CAD RECOMMENDATIONS Risk factor modification Medical therapy Surgery consult for coronary revascularization Surgery consult for valvular disease DESCRIPTION OF PROCEDURE The patient arrived to the procedure lab. The risks and benefits of the procedure as well as a full d escription of our services here and current unavailability of surgical backup were fully explained to the patient and/or their significant other prior to the catheterization. The Timeout was completed, verifying the correct patient and procedure. The patient's procedural site was prepped and draped in the usual fashion. Local anesthetic was given subcutaneously to right radial region with Lidocaine 2% . Using a modified Seldinger technique, arterial access was obtained via the right radial artery, a 6 Fr sheath was inserted. Left Coronary Artery selective angiography was performed in multiple views u sing a 5 Fr. 4.0 [place] catheter. Right Coronary Artery selective angiography was then performed in mu ltiple views using a 5 Fr. 4.0 [place] catheter. Left Coronary Artery selective angiography was perform ed in multiple views using a 5 Fr. JL3.5 catheter.The arterial sheath was pulled and a TR Band was applied for hemostasis CORONARY ANGIOGRAPHY DOMINANCE: Co- Dominant LEFT HEART ASSESSMENT Left Ventricular Ejection Fraction: Not assessed LEFT MAIN: Mild calcification LEFT ANTERIOR DESCENDING ARTERY: PROX LAD: Mild calcification MID LAD: Mild calcification, 85 % stenosis followed by 95 % stenosis followed by 85 % Stenosis CIRCUMFLEX ARTERY: Mild luminal irregularities PROX CIRC: Mild calcification MID CIRC: 95 % Stenosis RAMUS: ostial: 75 % Stenosis RIGHT CORONARY ARTERY: PROX RCA: is occluded RT PDA: Proximal - fills late and partially from right to right collateral flow COMPLICATIONS No Complications PROCEDURE MEDICATIONS Fentanyl 50 mcg IV Versed 1 mg IV Oxygen: 2 L/min via nasal cannula Heparin given IA 06/02/2021 08:01:47 Verapamil 2.5mg, Ntg 100mcgs, 3000 units of Heparin given IA 06/02/2021 08:01:47 SUMMARY OF HEMODYNAMIC DATA Time AIR REST ECG 07:37:21 AO 122/71 (95) SA 08:04:22 Signed By Kash Dueñas MD On 06/02/2021 08:48:43 Kash Dueñas MD
[2021-06-02] MEDS: 0.9% Normal Saline 1,000 ML 75 ML IV ×2 (09:02→22:48)
[2021-06-02] MEDS: Atorvastatin Calcium 40 MG Tablet PO (10:29)
--- NOTE | 2021-06-02 11:25 | PCM.PN.HOSP ---
Subjective Subjective Cardiac cath today with mid LAD lesion as well as a circumflex lesion. Recommendation is to transfer for CABG evaluation Objective Data Objective Data Vital Signs: Vital Signs Temp Pulse Resp BP Pulse Ox 97.7 F L 61 18 133/64 H 97 06/02/21 10:50 06/02/21 10:50 06/02/21 10:50 06/02/21 10:50 06/02/21 10:50 Oxygen Delivery Method Room Air Weight: 250 lb 12.8 oz Body Mass Index (BMI) 36.5 Intake & Output: Intake and Output for Last 24 Hours 06/01/21 06/02/21 06/03/21 03:59 03:59 03:59 Intake Total 960 / 960 350 / 350 Balance 960 / 960 350 / 350 Lab / Micro Data Result Diagrams: 06/01/21 04:43 06/01/21 04:43 Micro: Microbiology 06/02/21 10:35 Nasal Secretion SARS-CoV-2 Antigen (Rapid) - Final Radiography Diagnostic Testing: Radiology Impression Echocardiogram 06/01/21 10:20 Interpretation Summary The study was technically difficult. Contrast injection was performed. Mild segmental systolic dysfunction (see wall motion). The estimated ejection fraction is 40 %. Moderate concentric left ventricular hypertrophy. The left atrium is moderately enlarged. There is mild to moderate mitral annular calcification. Mild focal mitral valve calcification of the anterior leaflet. Moderate (2+) eccentric mitral valve insufficiency. Mild tricuspid valve insufficiency. Mild aortic stenosis. Trivial pulmonic valve insufficiency. Trivial pericardial effusion. There are no echocardiographic indications of cardiac tamponade. Unable to estimate RV systolic pressure/pulmonary artery pressure due to technically difficult study. Transmitral diastolic flow velocities suggest diastolic dysfunction (pseudonormal pattern). Ordering Physician: Sajan Castano Referring Physician: MD Erasmo Valadez Performed By: Sundar Mckeon RCS Physical Exam Const alert, oriented x3 and no apparent distress General Appearance: cooperative HEENT normocephalic and moist oral mucous membranes Eyes PERRL, EOMs intact bilaterally and conjunctivae normal Neck supple and no JVD Resp normal respiratory effort, no retractions, no use of accessory muscles and clear to auscultation bilaterally Auscultation: Negative for crackles, rales, rhonchi or wheezes Cardio regular rate, regular rhythm, S1 normal heart sound, S2 normal heart sound and no murmurs GI soft to palpation, non-tender and non-distended; Negative for hepatosplenomegaly Extremity no clubbing, cyanosis or edema Skin no rashes or lesions noted Neuro no focal motor deficits and no sensory deficits noted Psych affect normal Appearance: appropriate Assessment & Plan Assessment/Plan (1) Chest pain: PLAN: 1. Chest pain with an abnormal stress test and reduced EF/hyperlipidemia ?Serial troponins peaked at 58 however stress test this morning was abnormal ?Echo with reduced EF and wall motion abnormality therefore cardiac cath was obtained which showed a mid LAD lesion as well as circumflex lesions ?Continue with lisinopril, Coreg, aspirin ?Based on cardiology evaluation will set up transfer to [facility] for evaluation of a CABG ?Continue with his Lipitor and his home iron ?We will continue to monitor his blood pressure, he is not on any medications for hypertension at this time ?His EKG does show mild depressions in the lateral leads however there is no prior to compare to in our system 2. Iron deficiency anemia ?Hemoglobin is stable ?Continue with iron 3. History of prostate cancer ?He had a prostatectomy and then was placed on Levaquin secondary to Klebsiella infection colitis when he came into the hospital in March ?He will need to follow-up with his urologist and oncology as an outpatient for his precancerous lesions. DVT: Ambulation Charges/Coding Visit Charges OBSV E&M: 10380 Subsequent observation care L2
--- NOTE | 2021-06-02 11:50 | PN.CARD_ITS ---
Subjective Subjective The patient is status post diagnostic cardiac catheterization. He appears without any new acute adverse events. Objective Data Vital Signs: Vital Signs Temp Pulse Resp BP Pulse Ox 97.7 F L 61 18 133/64 H 97 06/02/21 10:50 06/02/21 10:50 06/02/21 10:50 06/02/21 10:50 06/02/21 10:50 Oxygen Delivery Method Room Air Weight: 250 lb 12.8 oz Body Mass Index (BMI) 36.5 Intake & Output: Intake and Output for Last 24 Hours 05/31/21 06/01/21 06/02/21 23:59 23:59 23:59 Intake Total 600 / 960 360 / 710 350 / 350 Balance 600 / 960 360 / 710 350 / 350 Lab / Micro Data Result Diagrams: 06/01/21 04:43 06/01/21 04:43 Micro: Microbiology 06/02/21 10:35 Nasal Secretion SARS-CoV-2 Antigen (Rapid) - Final Cardiology Labs/Tests Rhythm: Sinus rhythm Cardiac catheterization: CONCLUSIONS [place] Multivessel CAD RECOMMENDATIONS Risk factor modification Medical therapy Surgery consult for coronary revascularization Surgery consult for valvular disease DESCRIPTION OF PROCEDURE The patient arrived to the procedure lab. The risks and benefits of the procedure as well as a full description of our services here and current unavailability of surgical backup were fully explained to the patient and/or their significant other prior to the catheterization. The Timeout was completed, verifying the correct patient and procedure. The patient's procedural site was prepped and draped in the usual fashion. Local anesthetic was given subcutaneously to right radial region with Lidocaine 2%. Using a modified Seldinger technique, arterial access was obtained via the right radial artery, a 6Fr sheath was inserted. Left Coronary Artery selective angiography was performed in multiple views using a 5 Fr. 4.0 [place] catheter. Right Coronary Artery selective angiography was then performed in multiple views using a 5 Fr. 4.0 [place] catheter. Left Coronary Artery selective angiography was performed in multiple views using a 5 Fr. JL3.5 catheter.The arterial sheath was pulled and a TR Band was applied for hemostasis CORONARY ANGIOGRAPHY DOMINANCE: Co- Dominant LEFT HEART ASSESSMENT Left Ventricular Ejection Fraction: Not assessed LEFT MAIN: Mild calcification LEFT ANTERIOR DESCENDING ARTERY: PROX LAD: Mild calcification MID LAD: Mild calcification, 85 % stenosis followed by 95 % stenosis followed by 85 % Stenosis CIRCUMFLEX ARTERY: Mild luminal irregularities PROX CIRC: Mild calcification MID CIRC: 95 % Stenosis RAMUS: ostial: 75 % Stenosis RIGHT CORONARY ARTERY: PROX RCA: is occluded RT PDA: Proximal - fills late and partially from right to right collateral flow Radiography Diagnostic Testing: Radiology Impression Echocardiogram 06/01/21 10:20 Interpretation Summary The study was technically difficult. Contrast injection was performed. Mild segmental systolic dysfunction (see wall motion). The estimated ejection fraction is 40 %. Moderate concentric left ventricular hypertrophy. The left atrium is moderately enlarged. There is mild to moderate mitral annular calcification. Mild focal mitral valve calcification of the anterior leaflet. Moderate (2+) eccentric mitral valve insufficiency. Mild tricuspid valve insufficiency. Mild aortic stenosis. Trivial pulmonic valve insufficiency. Trivial pericardial effusion. There are no echocardiographic indications of cardiac tamponade. Unable to estimate RV systolic pressure/pulmonary artery pressure due to technically difficult study. Transmitral diastolic flow velocities suggest diastolic dysfunction (pseudonormal pattern). Ordering Physician: Sajan Castano Referring Physician: MD Rory Erasmo Performed By: Sundar Mckeon [facility] Physical Exam Const alert, oriented x3 and no apparent distress Orientation / Consciousness: awake HEENT normocephalic, head/scalp atraumatic and hearing grossly normal bilaterally Eyes PERRL, EOMs intact bilaterally and conjunctivae normal Neck full ROM, supple and no JVD Resp clear to auscultation bilaterally Cardio regular rate, regular rhythm, S1 normal heart sound and S2 normal heart sound Heart Sounds: murmur systolic III/ harsh mid left sternal border, LVOT and sternal notch GI normal to inspection, nondistended, normoactive bowel sounds Extremity no pedal edema Neuro oriented x3, moves all extremities, no focal motor deficits and no sensory deficits noted Psych mental status grossly normal Assessment & Plan Assessment/Plan (1) Angina pectoris: PLAN: The patient has symptoms concerning for angina pectoris. He states the symptoms are mainly with exertional activity. He does have an abnormal ECG, abnormal transthoracic echocardiogram, and an abnormal pharmacologic stress nuclear imaging study. He is being monitored. He is on medical management. He has undergone additional evaluation with diagnostic cardiac catheterization. He appears to have angiographically significant multivessel CAD. The recommendation will be for continued medical management and transfer to a tertiary care center for consideration for CT surgery/CABG. The above was discussed and reviewed with the patient. Based upon a previous family member experience he has requested transfer to [facility] for further evaluation and care. (2) Cardiomyopathy: PLAN: Based upon the patient's noninvasive imaging studies there is concern of diminished LV wall motion and systolic function and diminished LVEF. This would be compatible with an underlying cardiomyopathy. The etiology is unclear as to whether this is ischemic versus nonischemic based. At the moment the patient will continue medical management. He will continue cardiovascular evaluation as noted. In the interim he will be monitored for any obvious symptoms potentially compatible with acute CHF that would warrant additional medical therapy and care. (3) Aortic valve disorder: PLAN: The patient does have a cardiac murmur. He states he was only recently told of a cardiac murmur. His echocardiogram would suggest an element of aortic valve stenosis. It appears to be mild. This will need to be followed over time by history, exam, and echocardiographic studies. This will also need to be taken into consideration at the time of his CT surgery evaluation for CABG. (4) HLD (hyperlipidemia): PLAN: The patient has a history of hyperlipidemia. He will continue lipid-lowering therapy. (5) Abnormal stress test: PLAN: The patient stress test does raise a concern of stress-induced myocardial ischemia. The patient has undergone further evaluation as noted. He has been found to have angiographically significant appearing multivessel CAD. The request has been made for transfer to tertiary care [place] for further CT evaluation and care. Addt'l Comments The patient's case has been discussed and reviewed with Dr. Castano. He has agreed to initiate transfer to [facility] for further CT surgery evaluation and care. This note was generated using a voice recognition system and there may be incorrect words, spelling or punctuation that were not noted when reviewing the office note prior to saving.
[2021-06-02] MEDS: Ferrous Sulfate 325 MG Tablet PO (11:57)
[2021-06-03] VITALS (8 sets, daily range): BP systolic 134–165; BP diastolic 64–76; PULSE 54–74; RESP 18; TEMP 36.4–36.7; O2SAT 96–100
[2021-06-03 02:31] LABS: Partial Thromboplast Time 45.4 Seconds (24.1-36.2)
[2021-06-03 02:34] LABS: Anion Gap 6 (5-15); BUN 20 mg/dL (7-18); BUN/Creat Ratio 20.9 RATIO (10-20); Calcium,Total 8.6 mg/dL (8.5-10.1); Chloride 110 mmol/L (98-107); Creatinine, Serum 0.96 mg/dL (0.70-1.30); EST Glomerular Filtration Rate 83 mL/min (>60); Est Glom Filt Rate - Afr Amer 100 mL/min (>60); Glucose 152 mg/dL (74-106); Potassium 3.8 mmol/L (3.5-5.1); Sodium Level 141 mmol/L (136-145)
[2021-06-03] MEDS: Heparin Injection (Vial) 5,000 UNIT/ML VIAL IV ×3 (02:49→17:26)
--- NOTE | 2021-06-03 05:55 | EKG12_ITS ---
Test Reason : AM EKG Blood Pressure : / mmHG Vent. Rate : 065 BPM Atrial Rate : 065 BPM P-R Int : 146 ms QRS Dur : 092 ms QT Int : 414 ms P-R-T Axes : 064 074 128 degrees QTc Int : 430 ms Normal sinus rhythm Anteroseptal infarct , age undetermined T wave abnormality, consider lateral ischemia Abnormal ECG When compared with ECG of 02-JUN-2021 05:15, MANUAL COMPARISON REQUIRED, DATA IS UNCONFIRMED Confirmed by ANDRY LUCERO, BUD ([id number]), film and video editor PATRICK [employer]EL ([id number]) on 06/06/2021 1:29:50 PM Referred By: IZZY Confirmed By:TIANNA WILDE MD
[2021-06-03] MEDS: Lisinopril 5 MG Tablet PO (08:11)
[2021-06-03] MEDS: Atorvastatin Calcium 40 MG Tablet PO (08:11)
[2021-06-03] MEDS: Carvedilol 3.125 MG TABLET PO ×2 (08:11→20:37)
[2021-06-03] MEDS: Aspirin 81 MG TAB.CHEW PO (08:11)
--- NOTE | 2021-06-03 08:49 | PN.CARD_ITS ---
Subjective Subjective The patient appears to be resting comfortably at this time. He has no new acute complaints. Objective Data Vital Signs: Vital Signs Temp Pulse Resp BP Pulse Ox 97.7 F L 70 18 165/71 H 98 06/03/21 08:13 06/03/21 08:13 06/03/21 08:13 06/03/21 08:13 06/03/21 08:13 Oxygen Delivery Method Room Air Weight: 250 lb 12.8 oz Body Mass Index (BMI) 36.5 Intake & Output: Intake and Output for Last 24 Hours 06/01/21 06/02/21 06/03/21 23:59 23:59 23:59 Intake Total 360 / 710 1890 / 2370 706 / 706 Balance 360 / 710 1890 / 2370 706 / 706 Lab / Micro Data Result Diagrams: 06/01/21 04:43 06/03/21 02:11 Labs: Laboratory Results - last 24 hr 06/02/21 19:05: APTT 31.0 06/03/21 02:11: Sodium 141, Potassium 3.8, Chloride 110 H, Carbon Dioxide 25.0, Anion Gap 6, BUN 20 H, Creatinine 0.96, Estim Creat Clear Calc 71.60, Est GFR (MDRD) Af Amer 100, Est GFR (MDRD) Non-Af 83, BUN/Creatinine Ratio 20.9 H, Glucose 152 H, Calcium 8.6 06/03/21 02:11: APTT 45.4 H Micro: Microbiology 06/02/21 10:35 Nasal Secretion SARS-CoV-2 Antigen (Rapid) - Final Cardiology Labs/Tests 06/02/21 19:05: APTT 31.0 06/03/21 02:11: Sodium 141, Potassium 3.8, Chloride 110 H, Carbon Dioxide 25.0, Anion Gap 6, BUN 20 H, Creatinine 0.96, Est GFR (MDRD) Af Amer 100, Est GFR (MDRD) Non-Af 83, BUN/Creatinine Ratio 20.9 H, Glucose 152 H, Calcium 8.6 06/03/21 02:11: APTT 45.4 H Rhythm: Sinus rhythm EKG: Sinus rhythm; anteroseptal HI of indeterminate age cannot be excluded; T wave abnormality-consider myocardial ischemia-lateral ECHO: The study was technically difficult. Contrast injection was performed. Mild segmental systolic dysfunction (see wall motion). The estimated ejection fraction is 40 %. Moderate concentric left ventricular hypertrophy. The left atrium is moderately enlarged. There is mild to moderate mitral annular calcification. Mild focal mitral valve calcification of the anterior leaflet. Moderate (2+) eccentric mitral valve insufficiency. Mild tricuspid valve insufficiency. Mild aortic stenosis. Trivial pulmonic valve insufficiency. Trivial pericardial effusion. There are no echocardiographic indications of cardiac tamponade. Unable to estimate RV systolic pressure/pulmonary artery pressure due to [place] hnically difficult study. Transmitral diastolic flow velocities suggest diastolic dysfunction (pseud onormal pattern). Stress Test Report Date: 06-01-2021 Procedure: Pharmacologic stress nuclear imaging study Indications: Chest pain; shortness of breath/dyspnea on exertion Consent: Per the patient Procedure: The patient underwent pharmacologic (Regadenoson 0.4mg ) evaluation with a peak heart rate of 94 beats per minute (62%predicted maximal heart rate) and a peak blood pressure of 160/94 mmHg. The baseline ECG demonstrated normal sinus rhythm; poor R wave progression; anterior HI of indeterminate age cannot be excluded; nonspecific ST/T wave abnormality. The peak pharmacologic ECG demonstrated no obvious ECG changes. There were no cardiac dysrhythmias pretest, during pharmacologic infusion, or recovery. There was no complaint of chest discomfort during pharmacologic infusion or recovery. The examination was discontinued secondary to completion of protocol. Impression: 1. Pharmacologic (Regadenoson) evaluation 2. Peak pharmacologic ECG with no obvious ECG changes. 3. There were no cardiac dysrhythmias pretest, during pharmacologic infusion, or recovery. 4. Nuclear images pending Myocardial perfusion imaging study: Technique: The patient was injected with 14.5 millicuries of technetium 99m Cardiolite and subsequently rest SPECT Cardiolite nuclear imaging was obtained in the horizontal long, vertical long, and short axis views. The patient underwent pharmacologic (Regadenoson) evaluation with a peak heart rate of 94 beats per minute (62% percent predicted maximal heart rate) and a peak blood pressure of 160/94 mmHg. The patient was injected with 44.8 millicuries of technetium 99m Cardiolite and subsequently stress SPECT Cardiolite nuclear imaging was obtained in the horizontal long, vertical long, and short axis views. A gated Cardiolite study at peak stress was obtained. Interpretation: Rest and stress SPECT Cardiolite nuclear imaging status post realignment, normalization, and attenuation correction demonstrate status post attenuation correction the appearance at rest of subtle diminished tracer uptake in the mid to distal inferolateral segments which status post stress appears to be more prominent. There is diminished end-systolic thickening and inward wall motion. The gated Cardiolite study demonstrates diminished myocardial thickening and inward wall motion. The reported LVEF is 41%. Impression: 1. Rest and stress SPECT her nuclear imaging demonstrate myocardial perfusion changes concerning for an area of stress-induced myocardial ischemia in portions of the mid to distal inferolateral segments, however, an element of soft tissue attenuation/artifact cannot necessarily be excluded. 2. The gated Cardiolite study reports an LVEF of 41%. Cardiac Cath: CONCLUSIONS [place] Multivessel CAD RECOMMENDATIONS Risk factor modification Medical therapy Surgery consult for coronary revascularization Surgery consult for valvular disease DESCRIPTION OF PROCEDURE The patient arrived to the procedure lab. The risks and benefits of the procedure as well as a full description of our services here and current unavailability of surgical backup were fully explained to the patient and/or their significant other prior to the catheterization. The Timeout was completed, verifying the correct patient and procedure. The patient's procedural site was prepped and draped in the usual fashion. Local anesthetic was given subcuta neously to right radial region with Lidocaine 2%. Using a modified Seldinger technique, arterial access was obtained via the right radial artery, a 6Fr sheath was inserted. Left Coronary Artery selective angiography was performed in multiple views using a 5 Fr. 4.0 [place] catheter. Right Coronary Artery selective angiography was then performed in multiple views using a 5 Fr. 4.0 [place] catheter. Left Coronary Artery selective angiography was performed in multiple views using a 5 Fr. JL3.5 catheter.The arterial sheath was pulled and a TR Band was applied for hemostasis CORONARY ANGIOGRAPHY DOMINANCE: Co- Dominant LEFT HEART ASSESSMENT Left Ventricular Ejection Fraction: Not assessed LEFT MAIN: Mild calcification LEFT ANTERIOR DESCENDING ARTERY: PROX LAD: Mild calcification MID LAD: Mild calcification, 85 % stenosis followed by 95 % stenosis followed by 85 % Stenosis CIRCUMFLEX ARTERY: Mild luminal irregularities PROX CIRC: Mild calcification MID CIRC: 95 % Stenosis RAMUS: ostial: 75 % Stenosis RIGHT CORONARY ARTERY: PROX RCA: is occluded RT PDA: Proximal - fills late and partially from right to right collateral flow Physical Exam Const alert, oriented x3 and no apparent distress Orientation / Consciousness: awake HEENT normocephalic, head/scalp atraumatic and hearing grossly normal bilaterally Eyes PERRL, EOMs intact bilaterally and conjunctivae normal Neck full ROM, supple and no JVD Resp clear to auscultation bilaterally Cardio regular rate, regular rhythm, S1 normal heart sound and S2 normal heart sound Heart Sounds: murmur systolic III/ harsh mid left sternal border, LVOT and sternal notch GI normal to inspection, nondistended, normoactive bowel sounds Extremity no pedal edema Peripheral Pulses: Yes radial pulses present right (No obvious bruits: No obvious hematoma) 2+ Neuro oriented x3, moves all extremities, no focal motor deficits and no sensory deficits noted Psych mental status grossly normal Assessment & Plan Assessment/Plan (1) Angina pectoris: PLAN: The patient has symptoms concerning for angina pectoris. He states the symptoms are mainly with exertional activity. He does have an abnormal ECG, abnormal transthoracic echocardiogram, an abnormal pharmacologic stress nuclear imaging study and an abnormal cardiac catheterization. He is being monitored. He is on medical management. He is pending transfer at this time to [facility] for CT surgery evaluation for coronary revascularization/CABG. (2) Cardiomyopathy: PLAN: Based upon the patient's noninvasive imaging studies there is concern of diminished LV wall motion and systolic function and diminished LVEF. The patient will continue medical management. Hopefully status post revascularization his overall LV wall motion systolic function will improve. (3) Aortic valve disorder: PLAN: The patient does have a cardiac murmur. He states he was only recently told of a cardiac murmur. His echocardiogram would suggest an element of aortic valve stenosis. It appears to be mild. This will need to be followed over time by history, exam, and echocardiographic studies. This will also need to be taken into consideration at the time of his CT surgery evaluation for CABG. (4) HLD (hyperlipidemia): PLAN: The patient has a history of hyperlipidemia. He will continue lipid-lowering therapy. (5) Abnormal stress test: PLAN: The patient stress test does raise a concern of stress-induced myocardial ischemia. The patient has undergone further evaluation as noted. He has been found to have angiographically significant appearing multivessel CAD. The request has been made for transfer to [facility] for further CT evaluation and care. Addt'l Comments This note was generated using a voice recognition system and there may be incorrect words, spelling or punctuation that were not noted when reviewing the office note prior to saving.
--- NOTE | 2021-06-03 10:18 | PN.HOSP_ITS ---
Subjective Subjective Doing well, no issues overnight. Denies any chest pain or shortness of breath. The started on a heparin drip by cardiology yesterday. Objective Data Objective Data Vital Signs: Vital Signs Temp Pulse Resp BP Pulse Ox 97.7 F L 70 18 165/71 H 98 06/03/21 08:13 06/03/21 08:13 06/03/21 08:13 06/03/21 08:13 06/03/21 08:13 Oxygen Delivery Method Room Air Weight: 250 lb 12.8 oz Body Mass Index (BMI) 36.5 Intake & Output: Intake and Output for Last 24 Hours 06/02/21 06/03/21 06/04/21 03:59 03:59 03:59 Intake Total 350 / 350 2125 Balance 350 / 350 2125 Lab / Micro Data Result Diagrams: 06/01/21 04:43 06/03/21 02:11 Labs: Laboratory Results - last 24 hr 06/02/21 19:05: APTT 31.0 06/03/21 02:11: Sodium 141, Potassium 3.8, Chloride 110 H, Carbon Dioxide 25.0, Anion Gap 6, BUN 20 H, Creatinine 0.96, Estim Creat Clear Calc 71.60, Est GFR (MDRD) Af Amer 100, Est GFR (MDRD) Non-Af 83, BUN/Creatinine Ratio 20.9 H, Glucose 152 H, Calcium 8.6 06/03/21 02:11: APTT 45.4 H 06/03/21 08:55: APTT 47.0 H Micro: Microbiology 06/02/21 10:35 Nasal Secretion SARS-CoV-2 Antigen (Rapid) - Final Physical Exam Const alert, oriented x3 and no apparent distress General Appearance: cooperative HEENT normocephalic and moist oral mucous membranes Eyes PERRL, EOMs intact bilaterally and conjunctivae normal Neck supple and no JVD Resp normal respiratory effort, no retractions, no use of accessory muscles and clear to auscultation bilaterally Auscultation: Negative for crackles, rales, rhonchi or wheezes Cardio regular rate, regular rhythm, S1 normal heart sound, S2 normal heart sound and no murmurs GI soft to palpation, non-tender and non-distended; Negative for hepatosplenomegaly Extremity no clubbing, cyanosis or edema Skin no rashes or lesions noted Neuro no focal motor deficits and no sensory deficits noted Psych affect normal Appearance: appropriate Assessment & Plan Assessment/Plan (1) Chest pain: PLAN: 1. Coronary artery disease with an abnormal stress test and reduced EF/HTN/HLD ?Serial troponins peaked at 58 however stress test was abnormal, echo was obtained ?Echo with reduced EF and wall motion abnormality therefore cardiac cath was obtained which showed a mid LAD lesion as well as circumflex lesions ?Continue with lisinopril, Coreg, aspirin, as well as a heparin drip ?He has been accepted at [facility] for possible CABG ?Continue with his Lipitor and his home iron ?We will continue to monitor his blood pressure, he is not on any medications for hypertension at this time ?His EKG does show mild depressions in the lateral leads however there is no prior to compare to in our system 2. Iron deficiency anemia ?Hemoglobin is stable ?Continue with iron 3. History of prostate cancer ?He had a prostatectomy and then was placed on Levaquin secondary to Klebsiella infection colitis when he came into the hospital in March ?He will need to follow-up with his urologist and oncology as an outpatient for his precancerous lesions. DVT: Heparin drip Charges/Coding Visit Charges Inpatient E&M: 67140 Subs Hosp L2
[2021-06-03] MEDS: 0.9% Normal Saline 1,000 ML 75 ML IV (11:14)
[2021-06-03] MEDS: Ferrous Sulfate 325 MG Tablet PO (11:54)
[2021-06-03 16:57] LABS: Partial Thromboplast Time 54.3 Seconds (24.1-36.2)
[2021-06-04] VITALS (7 sets, daily range): BP systolic 142–158; BP diastolic 61–87; PULSE 65–83; RESP 16–20; TEMP 36.6–37; O2SAT 96–100
[2021-06-04 00:44] LABS: Partial Thromboplast Time 71.3 Seconds (24.1-36.2)
[2021-06-04 07:53] LABS: Anion Gap 5 (5-15); BUN 17 mg/dL (7-18); BUN/Creat Ratio 19.6 RATIO (10-20); Calcium,Total 8.5 mg/dL (8.5-10.1); Chloride 108 mmol/L (98-107); Creatinine, Serum 0.87 mg/dL (0.70-1.30); EST Glomerular Filtration Rate 92 mL/min (>60); Est Glom Filt Rate - Afr Amer 112 mL/min (>60); Estimated Creatinine Clearance 79.01 ml/min; Glucose 131 mg/dL (74-106); Partial Thromboplast Time 67.9 Seconds (24.1-36.2); Potassium 3.8 mmol/L (3.5-5.1); Sodium Level 140 mmol/L (136-145)
[2021-06-04] MEDS: Atorvastatin Calcium 40 MG Tablet PO (08:56)
[2021-06-04] MEDS: Aspirin 81 MG TAB.CHEW PO (08:56)
[2021-06-04] MEDS: Lisinopril 10 MG Tablet PO (08:56)
[2021-06-04] MEDS: Carvedilol 3.125 MG TABLET PO (08:56)
--- NOTE | 2021-06-04 10:13 | PCM.PN.HOSP ---
Subjective Subjective Well today, still no chest pain. He would like to try to go to a different hospital if possible given how long it is taking to get in the [facility] main campus. Objective Data Objective Data Vital Signs: Vital Signs Temp Pulse Resp BP Pulse Ox 98.3 F 73 18 155/87 H 96 06/04/21 08:45 06/04/21 08:45 06/04/21 08:45 06/04/21 08:45 06/04/21 08:45 Oxygen Delivery Method Room Air Weight: 250 lb 12.8 oz Body Mass Index (BMI) 36.5 Intake & Output: Intake and Output for Last 24 Hours 06/03/21 06/04/21 06/05/21 03:59 03:59 03:59 Intake Total 2125 3134.21 / 3134. 120 / 120 Output Total 475 / 475 Balance 2125 3134.21 / 3134.21 -355 / -355 Lab / Micro Data Result Diagrams: 06/01/21 04:43 06/04/21 06:16 Labs: Laboratory Results - last 24 hr 06/03/21 15:43: APTT 54.3 H 06/03/21 23:58: APTT 71.3 H 06/04/21 06:16: Sodium 140, Potassium 3.8, Chloride 108 H, Carbon Dioxide 27.0, Anion Gap 5, BUN 17, Creatinine 0.87, Estim Creat Clear Calc 79.01, Est GFR (MDRD) Af Amer 112, Est GFR (MDRD) Non-Af 92, BUN/Creatinine Ratio 19.6, Glucose 131 H, Calcium 8.5 06/04/21 06:16: APTT 67.9 H Micro: Microbiology 06/02/21 10:35 Nasal Secretion SARS-CoV-2 Antigen (Rapid) - Final Physical Exam Const alert, oriented x3 and no apparent distress General Appearance: cooperative HEENT normocephalic and moist oral mucous membranes Eyes PERRL, EOMs intact bilaterally and conjunctivae normal Neck supple and no JVD Resp normal respiratory effort, no retractions, no use of accessory muscles and clear to auscultation bilaterally Auscultation: Negative for crackles, rales, rhonchi or wheezes Cardio regular rate, regular rhythm, S1 normal heart sound, S2 normal heart sound and no murmurs GI soft to palpation, non-tender and non-distended; Negative for hepatosplenomegaly Extremity no clubbing, cyanosis or edema Skin no rashes or lesions noted Neuro no focal motor deficits and no sensory deficits noted Psych affect normal Appearance: appropriate Assessment & Plan Assessment/Plan (1) Chest pain: PLAN: 1. Coronary artery disease with an abnormal stress test and reduced EF/HTN/HLD ?Serial troponins peaked at 58 however stress test was abnormal, echo was obtained ?Echo with reduced EF and wall motion abnormality therefore cardiac cath was obtained which showed a mid LAD lesion as well as circumflex lesions ?Continue with lisinopril, Coreg, aspirin, as well as a heparin drip ?He has been accepted at [facility] for possible CABG, he would also like me to attempt to get him into [facility] ?Continue with his Lipitor and his home iron ?We will continue to monitor his blood pressure, he is not on any medications for hypertension at this time ?His EKG does show mild depressions in the lateral leads however there is no prior to compare to in our system 2. Iron deficiency anemia ?Hemoglobin is stable ?Continue with iron 3. History of prostate cancer ?He had a prostatectomy and then was placed on Levaquin secondary to Klebsiella infection colitis when he came into the hospital in March ?He will need to follow-up with his urologist and oncology as an outpatient for his precancerous lesions. DVT: Heparin drip Charges/Coding Visit Charges Inpatient E&M: 32736 Subs Hosp L2
[2021-06-04] MEDS: Ferrous Sulfate 325 MG Tablet PO (12:00)
--- NOTE | 2021-06-04 12:27 | PCM.DC.SUM ---
Providers Date of Admission: 06/02/21 Date of Discharge: 06/04/21 Primary Care Physician: Dr. Erasmo Valadez MD Consultations 06/01/21 10:20 Consult: Cardiology Routine Consulting Provider: Kash Dueñas Reason for Consult: Abnormal stress EMERGENT Consult: No Notified: Yes Date Notified: 06/01/21 Time Notified: 10:30 Method of Notification: Text Reason For Visit: CHEST PAIN Diagnosis Discharge Diagnosis (1) Chest pain: Status: Acute Code(s): R07.9 - Chest pain, unspecified Medications at Discharge Home Medications atorvastatin 40 mg PO DAILY 03/26/21 ferrous sulfate [FeroSul] 325 mg PO DAILY #0 tab 03/29/21 Hospital Course Operations None Procedures 2-D Echocardiogram, Cardiac catheterization and Nuclear stress test Summary of Care Provided Minutes Spent on Discharge: 40 Hospital Course: Per HPI: FAYE VAUGHN, is a 70 M who presents to the hospital with shortness of breath and chest pain. He has been feeling short of breath and some dyspnea on exertion and went to his PCPs office this morning. An EKG there was done and it was read as having new ischemic changes so we sent him over to the hospital for further evaluation. On arrival to the ER he no longer had any chest pain and states that the chest pain and the shortness of breath came with exertion. He has been having shortness of breath and periodic chest pressure for about the last month or so. He thinks that it started when he was placed on Levaquin for an infection after prostate procedure. He has never had any chest pain or shortness of breath like this before. He has no issues with lying down flat. What he has noticed is that over the last week or 2 the periods of shortness of breath and chest pressure with exertion has become more frequent. His PCP was scheduling him for an outpatient stress test when he was evaluated in the office today and sent in to the ER. Hospital Course: 1. Coronary artery disease an abnormal stress test and reduced EF/HTN/HLD?70-year-old male presented to the hospital with episodes of chest pressure and shortness of breath been going on for several months. Patient has been getting worse so he went to his PCPs office and we can EKG there demonstrated ST depressions in the lateral leads. He had slightly elevated but normal troponins at 58 so he had a nuclear stress test which was abnormal so an echo was performed which demonstrated a reduced EF about 40% with no wall motion abnormality therefore cardiology was consulted and recommended a heart cath. In the meantime he was started on lisinopril and Coreg and he had not been on any blood pressure medications prior. Cardiac cath demonstrated a fairly large mid LAD stenosis that progressed from 85% to 95% back to 85%. There is also a mid circumflex stenosis at 95% as well as 75% stenosis ramus, the proximal RCA is also occluded. Initially he wanted to be transferred to the [facility] however this was delayed secondary to their census. In the meantime he will started on a heparin drip by cardiology. This morning we discussed the case with [facility] and they have accepted him. 2. Iron deficiency anemia, history of prostate cancer all chronic medical, care. His home medications were continued where appropriate Weight / BMI Weight Weight: 250 lb 12.8 oz Body Mass Index (BMI) 36.5 ABG / Lab / Microbiology Data Result Diagrams: 06/01/21 04:43 06/04/21 06:16 Laboratory: Laboratory Results - last 24 hr 06/03/21 15:43: APTT 54.3 H 06/03/21 23:58: APTT 71.3 H 06/04/21 06:16: Sodium 140, Potassium 3.8, Chloride 108 H, Carbon Dioxide 27.0, Anion Gap 5, BUN 17, Creatinine 0.87, Estim Creat Clear Calc 79.01, Est GFR (MDRD) Af Amer 112, Est GFR (MDRD) Non-Af 92, BUN/Creatinine Ratio 19.6, Glucose 131 H, Calcium 8.5 06/04/21 06:16: APTT 67.9 H Microbiology: Microbiology 06/02/21 10:35 Nasal Secretion SARS-CoV-2 Antigen (Rapid) - Final Meaningful Use Info Meaningful Use Diagnoses (Choose all that apply): None applicable Discharge Plan Admission Admit Date/Time: 06/02/21 15:37 Attending Provider: Sajan Castano Primary Care Provider: Erasmo Valadez Consulting Providers: Kash Dueñas Discharge Orders/Prescriptions Prescriptions: No Action atorvastatin 40 mg tablet 40 mg PO DAILY RF: 0 ferrous sulfate [FeroSul] 325 mg (65 mg iron) tablet 325 mg PO DAILY Qty: 0 RF: 0 Referrals / Follow Up: Erasmo Valadez MD [Primary Care Provider] - Disposition Discharge Orders: Discharge Patient (Routine); Ordered 06/04/21 Ordered By: Dr. Sajan Castano Charges/Coding Visit Charges Inpatient E&M: 27194 Disch Hosp
== END 2021-06-04 18:05 | disposition short-term general hospital (02) | DRG 287 ==
LOC: ED 12:43 → PCU 13:01
PROVIDERS: Internal Medicine Cardiovascular Disease; Admitting Provider Family Medicine; Emergency Provider Emergency Medicine; PCP Family Medicine; Visit Provider Family Medicine
DX: I25.118 Atherosclerotic heart disease of native coronary artery with other forms of angina pectoris (principal); I42.9 Cardiomyopathy, unspecified; C61 Malignant neoplasm of prostate; D50.9 Iron deficiency anemia, unspecified; E78.5 Hyperlipidemia, unspecified; I10 Essential (primary) hypertension; I35.0 Nonrheumatic aortic (valve) stenosis; R01.1 Cardiac murmur, unspecified; Z87.891 Personal history of nicotine dependence; Z79.899 Other long term (current) drug therapy; R94.39 Abnormal result of other cardiovascular function study
CPT/HCPCS: 36415; 71045; 78452; 80048; 83880; 84484; 85025; 85730; 87426; 93005; 93017; 93306; 93454; 99152; 99153; 99285; A9500; J7030; Q9957; Q9967; A4216; C1769; C1894; C8929; J2785

== ENCOUNTER 2021-08-01 07:36 | Outpatient (CLI) | payer OTHER, SELFPAY ==
--- NOTE | 2021-08-01 07:55 | CR.ITP_ITS ---
Diagnosis - General Information Admitting Diagnosis: CABG x 3 vessel Secondary Diagnosis: Prostate Cancer, Prostate removal, UTI, DM Type II, hypercholesterolemia, hyperlipidemai, Personal Learning Style:: Audio/Visual, Written Barriers to Learning: No Barriers Gave educational material for:: Treating Heart Disease, Emotions & Heart Disease, Stress Management & Relaxation, Sleep Disorders & Heart Disease, How The Heart Works, What it means to have Heart Disease, How Coronary Artery Disease is Diagnosed, Heart Procedures, What Heart Medications Do, Risk Factors & Modifications, Living an Active Life, Nutrition - Education/Goals Individual Counseling: Initial Assessment: Abnormal Cholesterol Levels, Overweight/Obesity - BMI 38 currently on weight loss program w/Dr. Valadez, Diabetes, A. Fasting Blood Sugar >100 - 131 hBA1c Cardiac Rehabilitation Goals: 1. Maintain the individual as the primary focus of care. 2. To improve the patient's quality of life. 3. Identification of cardiac risk factors and provide cardiac risk factor management. 4. Enhance the psychosocial status of the patient. 5. Reconditioning enough to allow the patient to resume customary activities. 6. Control symptoms of cardiac disease Personal Goals: Initial Assessment: Improve energy level, Get back to work, or to resume activities faster, Improve muscle strength and endurance, Improve diet and eating habits (eat healthier), Control risk factors (learn risk factor modification) Scale for measuring improvement of personal goals: Enter appropriate number in Comments. 2 = Unchanged. 3 = Slightly Better. 4 = Moderate Improvement. 5 = Met my Goal - Diagnosis & Disease Process Outcomes/Goals: Pt IDs own risk factors & lifestyle modifications by Session 10, Verbalizes symptoms of angina & response by session 3., Pt independently manages Plan/Interventions: Assist Pt to ID & engage in lifestyle modification to reduce CVD risk, Instruct on individual risk factors, Review symptoms of angina & emergency actions, Review secondary diagnosis & identify educational needs. - Safety Referral to Physical Therapy: No Referral to [facility] Case Management: No Fall Risk Assessed:: Yes Assistive Devices:: None Exercise - Initial Assessment - Visit Date of Eval: 08/01/21 Session #:: 0 - pre-cardiac rehab evaluation Mets: Pre-: >7 METS for 30 minutes by discharge - Physician Prescribed Exercise Modalities: Treadmill, Airdyne, NuStep Frequency: 3x/week for 12 weeks [36 sessions] Intensity: 60-80% of age predicted maximum heart rate reserve - Outcomes & Goals Goals:: Verbalizes understanding of THR, RPE & goal METS by session 6, Documents in home exercise log/reports 30 min aerobic 5 day/wk by DC, Demonstrates accurate pulse taking by DC - Intervention & Plan Exercise Program Goals: Instruct on personal THR & RPE, Instruct on MET level & personal MET goal, Show patient to take own pulse /validate performance until accurate, Instruct on home exercise - Physical Activity Home Exercise Physical Activity - Home Exercise: Safe Exercise, Warm-up, Self-monitoring, Cool-Down, Home Exercise > 30 min Daily, Sitting Time <3 hours/daily - Outcomes & Goals Outcomes/Goals: Demonstrates correct Warm-up/exercise Cool-Down (S3) if = 2.5 METs, Verbalizes symptoms of exercise intolerance by Session 3 (S3), Demonstrate safe equipment use (S3) & follows exercise prescrition (6) - Intervention & Plan Plan/Intervention: Instruct warm-up & cool-down if exercising at > 2 METs, Instruct on symptoms of exercise intolerance & actions to take, Instruct & monitor on saf, Assess intial functional capacity & safety risk Nutrition - Initial Assessment - Program Goals Nutrition Program Goals: LDL <100 optimal. 100 - 129 Near optimal. 130 - 159 Borderline High. 160 - 189 High. Total Cholesterol <200 desirable. 200 - 239 Borderline High. >/= 240 High. HDL < 40 Low >/=60 High. Triglycerides <150 desirable. <199 optimal. VlDL 5 - 40. HgbA1C <7%. BMI <25 Patient has diagnosis of Hyperlipidemia (ICD E78)?: Yes - Visit Date of Assessment:: 08/01/21 Session #:: 0 - pre-cardiac rehab evaluation - Cholesterol/Lipids Determine presence & major risk factors that modify LDL goal: Hypertension or hypertensive medication, Age men > 45 years; women >/= 55 years Outcomes/Goals: Pt IDs own risk factors & lifestyle modifications by Session 10, Verbalizes symptoms of angina & response by session 3., Pt independently manages Intervention/Plan: Instruct on personal lipid levels & lipid goals/NCEP guidelines, Instruct on cholesterol Referral to dietitian:: Yes - MEDICAL NUTRITION THEREAPY - Diabetes (Other Core Measures) Diabetes Type: Diagnosis Type II ICD-10 E11 Fasting blood glucose:: 131 Insulin dependent injection/pump?: Yes - INSULIN GLARGINE Non-Insulin Dependent?: Yes - METFORMIN 500MG BID Do you monitor your blood sugar at home?: Yes Referral to Diabetic Clinic:: Yes - INTL DSMNT& MNGT Outcomes/Goals:: Able to state symptoms of, Able to state, Able to state Intervention/Plan:: Instruct on, Refer to, Instruct on - Weight Mgt (Other Care) Not Applicable: Yes Height: 5 ft 9 in Weight:: 244 lb BMI: 36.0 Diagnosis Overweight/Obesity BMI> 30% ICD-10 E66: Yes Diagnosis High BMI/Morbid Obesity BMI> 35% ICD-10 Z68: Yes Outcomes/Goals: Pt sets, maintains & shows weight loss goal & trend during rehab Intervention/Plan: Instruct on ideal BMI & set weight loss goal w/patient, Assist pt to ID & incorporate diet changes for weight loss by S9, Refer to Structured Weight Loss program as appropriate, Encourage goal of using 250- 300dcal per session for weight loss - Healthy Eating Habits Will attend diet classes:: Yes Outcomes/Goals:: Consume diet rich in vegs,fruits,whole grain/high fiber,fish,lean meat, Limit sat/trans fats,cholesterol & added salts & sugars Intervention/Plan:: Assess current eating habits - Education Gave educational materials for:: Signs & symptoms of hypoglycemia, Signs & symp toms of hyperglycemia, Relate diabetes to coronary artery disease, Healthy eating Nutrition - 30-Day Assessment Nutrition - 60-Day Assessment Nutrition - 90-Day Assessment Nutrition - Final Assessment Medical - Initial Assessment - Visit Date of Eval: 08/01/21 Session #:: 0 - PRE-CARDIACX REHAB EVALUATION - Medication Compliance Preventative Medication(s):: Aspirin, Clopidogrel/P2Y12 inhibit, Statin/lipid, Beta babs H/O mental health issues: depression, anxiety, or addiction?: No Doesn?t believe in the benefits of treatment?: No Believes medications are unnecessary or harmful?: No Has a concern about medication side effects?: No Expresses concern over the cost of medications?: No Outcomes/Goals: Verbalizes medications,desired effect & common side effects @ DC, Pt self-reports following medication regimen, Keeps card in wallet w/medications listed by DC Interventions/plans: Instruct on medication effects & side effects, Review medication list w/patient every two weeks, Instruct importance of taking meds as ordered & assist problem solving - Tobacco Use Tobacco Use: Non-smoker - Hypertension Hypertension Diagnosis:: Hypertension ICD-10 I10 Resting Blood Pressure:: 137/80 [place] [employer] Hypertension Guidelines: [place] [employer] Hypertension Guidelines. Normal BP Less than 120/80. Elevated BP 120/80. Hypertension Stage 1: BP 130-139/80-89. Hypertesnion Stage 2: BP 140 or higher/90 or higher. Hypertension Crisis: BP higher than 180/120 Outcomes/Goals: Able to verbalize/achieve optimal blood pressure <130/80, Incorporates diet changes & exercise for blood pressure control by DC Interventions/plan: Instruct on optimal blood pressure, hypertension & medications - Tobacco Cessation Referral Smoking Cessation Referral:: No Individual Education/Counseling:: No Education Schedule Given:: Yes Medical- 30-Day Assessment Medical- 60-Day Assessment Medical- 90-Day Assessment Medical - Final Assessment Psychosocial - Initial Assess - VIsit Date of Eval: 08/01/21 Session #:: 0 - PRE-CARDIAC REHAB EVALUATION Not Applicable: Yes History of previous Mental disease:: No - Psychosocial Test Tool Used:: Triage QOL Cardiac, PHQ-9 Questionnaire phq-9 Severity: Severity. 1-4 Minimal Depression. 5-9 Mild Depression. 10-14 Moderate Depression. 15-19 Moderately Sever Depression. 20-27 Severe Depression. Rule: - Referral to Behavioral Health PS - Interventions: Yes Attend Stress Management Classes, No Referral to Behavioral Health if PHQ-9 score >9:, No Referral to [facility], No Referral to Physician if PHQ-9 if score is 5-9: - Outcomes/Goals: See list Psychosocial Outcomes/Goals:: ID's personal stressors & 2 strategies to manage stress by discharge - Intervention/Plan: See List Interventions/Plan:: Assess stressors,coping strategies & signs of derpression on admission, Instruct/assist pt to develop coping & personal stress Mgt strategies, Instruct patient to recognize signs & symptoms of depression, Instruct patient to recog Psychosocial - 30-Day Assess Psychosocial - 60-Day Assess Psychosocial - 90-Day Assess Psychosocial - Final Assessmen Patient Health Questionnaire Initial Assessment 1. Little interest or pleasure in doing things: Not at all 2. Feeling down, depressed, or hopeless: Not at all 3. Trouble falling or staying asleep, or sleeping too much: Not at all 4. Feeling tired or having little energy: Not at all 5. Poor appetite or overeating: Not at all 6. Feeling bad about yourself -- or that you are a failure or have let yourself or your family down: Not at all 7. Trouble concentrating on things, such as reading the newspaper or watching television: Not at all 8. Moving or speaking so slowly that other people could have noticed. Or the opposite - being so fidgety or restless that you have been moving around a lot more than usual: Not at all 9. Thoughts that you would be better off , or of hurting yourself in some way: Not at all How difficult have these problems made it for you to do your work, take care of things at home, or get along with other people?: Not difficult at all Total Score: 0 [place]OT[place]-Q SV Test - Statements CAD is a disease of the arteries in the heart: False Examples of risk factors for heart disease: True Angina is chest pain or discomfort: True The benefits of resistance training include: True Eating more meat and dairy products: False Anti-platelet medications such as aspirin are important: True The only effective way to manage stress: False An exercise warm-up slowly increases heart rate: True Prepared, processed foods usually have high sodium: True Depression is common after a heart attack: True The statin medications lower cholesterol: True To control blood pressure, lower the amount of sodium: True If someone gets chest discomfort during walking: False Transfats are partially hydrogenated vegetable oils: True Sleep apnea that is not treated increases the risk: False To control cholesterol, one should become a vegetarian: False Someone knows if he/she is exercising at the right level: True Diabetes cannot be prevented with exercise & health eating: False Stress is a large risk for heart attack: True A diet that can help lower blood pressure is rich in: True - Total Score Total Correct Responses: 20 Self-Efficacy Initial Assessment We would like to know how confident you are in doing certain activities. Please select your confidence level for:: Select your confidence level for the following using the scale 1-10 where 1 is not at all confident and 10 is totally confident. Your score is the average of all 6 responses. Fatigue: How confident are you that you can keep the fatigue caused by your disease from interfering with the things you want to do? Select Number: 10 Physical Discomfort or Pain: How confident are you that you can keep the physical discomfort or pain of your disease from interfering with the things you want to do? Select Number: 8 Emotional Distress: How confident are you that you can keep the emotional distress caused by your disease from interfering with the things you want to do? Select Number: 10 Other Symptoms or Health Problems: How confident are you that you can keep other symptoms or health problems from interfering with the things you want to do? Select Number: 10 Different Tasks and Activities: How confident are you that you can do the different tasks and activities needed to manage your health condition so as to reduce your need to see a doctor? Select Number: 10 Medication: How confident are you that you can do things other than just taking medication to reduce how much your illness affects your everyday life? Select Number: 10 Total Score:: 9 Nutrition Survey - Nutrition Survey Initial Have you lost >10 lbs over the past 2 months without trying?: No Are you following a special diet at home for diabetes, low fat, or low salt?: Yes Are you interested in meeting with a dietitian for help understanding your diet?: Yes Do you eat less than 3 meals a day?: No Do you eat fatty meats (inman, sausage, ribs, etc), fried foods, desserts, large amounts of salad dressings, margarine, butter, or cheese most days?: No Do you have food allergies? [Enter types in comment field]: No Do you eat in restaurants more than 3 times a week?: No Do you season food with salt, seasoning salt, or garlic salt?: No Do you used canned, boxed, frozen meals, or soups, seasoning packets?: No Total Score:: 2
--- NOTE | 2021-08-01 07:55 | PCM.CR.HP2 ---
CR - History & Physical - General Arrival date:: 08/01/21 Arrival time:: 07:55 Date of Referral:: 07/15/21 Date of CR Evaluation:: 08/01/21 Referring Physician: Dr. Kash Dueñas Primary Diagnosis: S/P CABG - History of Present Cardiac Event Onset Date: Enter Onset Date of cardiac illnesses in Comment field below Coronary Artery Bypass Graft:: Yes - 06/08/2021 Type of Symptoms:: May Dr Valadez weight loss, consuming more protein then body could handle, enlarged prostate, found prostate cancer removed prostate, started on antibiotic for UTI. After all this began to have shortness of breath and chest pressure and was admitted to [facility] for eveluation, sent to [facility] sent for 3 vessel bypass. Interventions with present event:: EKG, heart cath here. Were there any complications?: none up walking doing well day after surgery. - Sleep Disorder Evaluation Hx of Sleep Apnea: No Do you snore loudly (louder than talking or can be heard through closed doors)?: Yes Do you often feel tired/ fatigued/ sleepy during daytime?: No Has anyone observed you stop breathing during sleep?: No History of Hypertension (for STOP score): Yes STOP Results: Positive - Medications Home Medications: Ambulatory Orders Medication Instructions Recorded atorvastatin 40 mg PO DAILY 03/26/21 ferrous sulfate [FeroSul] 325 mg PO DAILY #0 tab 03/29/21 acetaminophen 500 mg tablet 1,000 mg PO Q4H PRN tab 06/13/21 aspirin 81 mg tablet,delayed 81 mg PO DAILY 06/13/21 release clopidogrel 75 mg tablet 75 mg PO DAILY 06/13/21 folic acid 1 mg tablet 1 mg PO DAILY 06/13/21 insulin glargine 100 unit/mL (3 10 unit SUBCUT QPM 06/13/21 mL) subcutaneous pen magnesium oxide 400 mg PO DAILY 06/13/21 metformin 500 mg tablet 500 mg PO BID 06/13/21 metoprolol tartrate 25 mg tablet 25 mg PO BID 06/13/21 sitagliptin 100 mg tablet 100 mg PO DAILY 06/13/21 - Allergies Allergies/Adverse Reactions: Allergies cephalexin Adverse Reaction (Verified 07/15/21 12:52) Pain in joints Advanced Directives - Advanced Directives 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 - DAUGHTER IS LEGAL [employer] Living Will: Yes Advance Directives Information Provided: No Advance Directives on File: No - HAVING THEM REDONE AND WILL BRING THEM DNR Order?:: No - MOLST See MOLST form: No Past Medical History - Covid-19 Screening Fever: No Unexplained muscle aches: No Current respiratory symptoms: No Upper respiratory infections symptoms: No Gastro-intestinal symptoms: No Fnq-Cown-Rjvpnp symptoms: No 65 years or older:: Yes Lives in Assisted Living facility:: No Has a chronic lung disease or moderate to severe asthma:: No Has a serious heart condition:: Yes Immunocompromised:: No Severely obese (Body Mass Index of 40 or higher):: No Diabetic:: Yes Has chronic kidney disease undergoing dialysis:: Yes Has liver disease:: No - Past Medical Illness Medical History: Past Medical History (Last Reviewed 07/15/21 @ 13:31 by Lucy Madrigal PA, PA) Abnormal stress test R94.39 Acute epididymitis N45.1 Acute UTI N39.0 Angina pectoris I20.9 Aortic valve disorder I35.9 Atherosclerotic heart disease of [place] coronary artery without angina pectoris I25.10 Cardiomyopathy I42.9 High cholesterol E78.00 History of left heart catheterization (LHC) Onset Date: ~06/02/21 Z98.890 LEFT MAIN: Mild calcification; LEFT ANTERIOR DESCENDING ARTERY: PROX LAD: Mild calcification, MID LAD: Mild calcification, 85 % stenosis followed by 95 % stenosis followed by 85 % Stenosis; CIRCUMFLEX ARTERY: Mild luminal irregularities; PROX CIRC: Mild calcification; MID CIRC: 95 % Stenosis; RAMUS: ostial: 75 % Stenosis; RIGHT CORONARY ARTERY: PROX RCA: is occluded RT PDA: Proximal - fills late and partially from right to right collateral flow; RECOMMENDATIONS: Surgery consult for coronary revascularization Surgery consult for valvular disease per cardiac cath 06/02/21 History of prostate cancer Z85.46 Precancerous cells noted in prostate History of skin cancer Z85.828 HLD (hyperlipidemia) E78.5 Intractable pain R52 Orchitis N45.2 Orchitis and epididymitis N45.3 - Past Surgical History Surgical History: Past Surgical History (Last Reviewed 07/15/21 @ 13:31 by Lucy BINGHAM, PA) H/O prostatectomy Z90.79 History of coronary artery bypass surgery Onset Date: ~06/08/21 Z95.1 CABG x4- CUI-mid LAD, SVG-PDA, SVG-OM1, SVG-RAMUS 06/08/21 @ [facility] - Family History Summary Family History: Family History (Last Reviewed 07/15/21 @ 13:31 by Lucy Madrigal PA, PA) Other Cancer Diabetes Social History - Smoking History Smoking Status: Never smoker Hx Tobacco Use: No Hx Smoking Exposure: No - Alcohol Use Alcohol Usage: No - RARE OCCASION - Substance Abuse Hx Substance Use: No - Occupation Occupation (List type of work in comments):: Employed Hours worked per day:: 6 - [employer] - Hobbies, Recreation, Social Activities Hobbies: Other - MOTORCYCLE, COOKING Recreational Activities: I am able to engage in most, but not all activities Social Environment - Status Marital Status: - Current Living Arrangements Living Environment:: Alone - Children How many children do you have?: 2 Do any of your children live nearby?: Yes - Safety Do you feel safe in your surroundings?: Yes Review of Systems - Review of Systems Hints: Right click = Denies (Slash). Left click = Reports ([place]) Review of Present Symptoms: Reports: Wound Healing, Appetite - Normal, Appetite - Special Diet - tALKED TO NUTRITION BEFORE DISCHARGE, BUT NO SPECIFIC DIET HE FOLLOWS., Sleep - Normal. Denies: Shortness of Breath at Rest, Shortness of Breath with Exertion, Operative Discomfort, Angina, Dizziness/Lightheadedness, Fatigue, Heart Arrhythmia/Irregularities - Pain Is Patient Pain Free?: Yes Pain Location: none Pain Level: 0/10 Risk Factor Assessment - Vital Signs Temperature: 98.2 F Respiratory Rate: 18 Pulse Ox: 97 Blood Pressure: 137/80 - Pulse Pulse Rate: 65 Pulse Rhythm: Regular - Hypertension Blood Pressure Sitting - Left Arm: 137/80 - Blood Cholesterol/Lipids Total Cholesterol (mg/dL) Goal = less than 200 mg/dL: 0 - no recent labs available to CR - Diabetes Diabetic History: Type II, Insulin Dependent Nutrition Referral for Diabetes: Yes - Obesity Height: 5 ft 9 in Weight:: 244 lb Weight in Pounds: 244.0 lbs Weight Source: Stated by Patient Body Mass Index (BMI): 36.0 Nutritional Referral for Obesity: Yes - currently on weight loss program with Dr. Valadez - Risk Stratification Risk Guidelines: Lowest Risk: Risk Factor for Smoking, Risk Factor for Sedentary Lifestyle, Risk Factor for Depression, Moderate Risk: Risk Factor for Diabetes, Risk Factor for Hypertension, Highest Risk: Risk Factor for Obesity - Family History Family History: Family History (Last Reviewed 07/15/21 @ 13:31 by Lucy Madrigal PA, PA) Other Cancer Diabetes Motivation - Motivation to Participate On a scale of 1 to 10, how prepared are you to commit to attending program?: 10 What do you see as barriers to successfully being able to complete the program?: NO What do you see as the benefits of succesfully completing the program? In other words, what do you hope to get out of participating in the program?: HEALTHIER, MORE ACTIVE, CONTROL RISK FACTORS Are there issues you are dealing with that will interfere with completing the program?: NONE Do you have a spouse or signficant other, family or friends who will help support you to complete the program?: YES
[2021-08-01 08:18] VITALS: BP 137/80; BMI 36.0
[2021-08-01 08:27] VITALS: BP 137/80; PULSE 65; RESP 18; TEMP 36.8; O2SAT 97; BMI 36.0
== END 2021-08-01 23:59 | disposition home or self-care (01) ==
LOC: CR 07:37
PROVIDERS: PCP Family Medicine; Referring Provider Internal Medicine Cardiovascular Disease; Visit Provider Internal Medicine Cardiovascular Disease
DX: Z95.1 Presence of aortocoronary bypass graft (principal); C61 Malignant neoplasm of prostate; E11.9 Type 2 diabetes mellitus without complications; N39.0 Urinary tract infection, site not specified; E78.00 Pure hypercholesterolemia, unspecified; E78.5 Hyperlipidemia, unspecified; Z90.79 Acquired absence of other genital organ(s)

== ENCOUNTER 2021-08-12 08:00 | Outpatient (RCR) | payer OTHER, SELFPAY | END 2021-08-13 23:59 | LOC: CR 08:00 | PROVIDERS: PCP Family Medicine; Referring Provider Internal Medicine Cardiovascular Disease; Visit Provider Internal Medicine Cardiovascular Disease | DX: Z95.1 Presence of aortocoronary bypass graft (principal) | CPT/HCPCS: 93798 ==

== ENCOUNTER 2021-08-31 08:40 | Outpatient (RCR) | payer OTHER, SELFPAY ==
[2021-08-29 15:14] VITALS: BMI 37.3
== END 2021-09-13 23:59 ==
LOC: DC 08:40
PROVIDERS: PCP Family Medicine; Referring Provider Internal Medicine Cardiovascular Disease; Visit Provider Internal Medicine Cardiovascular Disease
DX: E11.9 Type 2 diabetes mellitus without complications (principal); E78.00 Pure hypercholesterolemia, unspecified; E78.5 Hyperlipidemia, unspecified
CPT/HCPCS: 97802

== ENCOUNTER 2021-09-09 08:00 | Outpatient (RCR) | payer OTHER, SELFPAY ==
--- NOTE | 2021-08-29 15:04 | PCM.CR.ITP ---
Diagnosis Exercise - 30-day Assessment - Visit Date of Eval: 08/29/21 Session #:: 10 - Physician Prescribed Exercise Modalities: Treadmill, NuStep, Lateral Aneta Frequency: 3x/week for 12 weeks [36 sessions] Intensity: 60-80% of age predicted maximum heart rate reserve Current METSs:: 5 Target Heart Rate:: 97-127 Current RPE:: 12-13 Maximum Excercise HR:: 136 Resting Blood Pressure: 140/84 Maximum Exercise Blood Pressure: 144/86 EKG Type: NSR to ST with occas. pvc - Outcomes & Goals Goals:: Verbalizes understanding of THR, RPE & goal METS by session 6, Documents in home exercise log/reports 30 min aerobic 5 day/wk by DC, Demonstrates accurate pulse taking by DC, Other additional outcome/goals: see below - Intervention & Plan Exercise Program Goals: Instruct on personal THR & RPE, Instruct on MET level & personal MET goal, Show patient to take own pulse /validate performance until accurate, Instruct on home exercise, Other additional plan/int - 30-day Reassessments 30 day Reassessments:: Progressing - Physical Activity Home Exercise Physical Activity - Home Exercise: Safe Exercise, Warm-up, Self-monitoring, Cool-Down, Home Exercise > 30 min Daily, Sitting Time <3 hours/daily - Outcomes & Goals Outcomes/Goals: Demonstrates correct Warm-up/exercise Cool-Down (S3) if = 2.5 METs, Verbalizes symptoms of exercise intolerance by Session 3 (S3), Demonstrate safe equipment use (S3) & follows exercise prescrition (6), Other: See below - Intervention & Plan Plan/Intervention: Instruct warm-up & cool-down if exercising at > 2 METs, Instruct on symptoms of exercise intolerance & actions to take, Instruct & monitor on saf, Assess intial functional capacity & safety risk, Other See below - 30-day Reassessments 30 day Reassessments:: Progressing Nutrition - Initial Assessment Nutrition - 30-Day Assessment - Program Goals Nutrition Program Goals: LDL <100 optimal. 100 - 129 Near optimal. 130 - 159 Borderline High. 160 - 189 High. Total Cholesterol <200 desirable. 200 - 239 Borderline High. >/= 240 High. HDL < 40 Low >/=60 High. Triglycerides <150 desirable. <199 optimal. VlDL 5 - 40. HgbA1C <7%. BMI <25 Patient has diagnosis of Hyperlipidemia (ICD E78)?: Yes - Visit Date of Assessment:: 08/29/21 Session #:: 10 - Cholesterol/Lipids Determine presence & major risk factors that modify LDL goal: Hypertension or hypertensive medication, Low HDL cholesterol <40 mg/dL*, Family history of premature CHD in Male < 55 years: female <65 yearsFa, Age men > 45 years; women >/= 55 years Outcomes/Goals: Pt IDs own risk factors & lifestyle modifications by Session 10, Verbalizes symptoms of angina & response by session 3., Pt independently manages, Other Additional Outcomes/Goals: Intervention/Plan: Advocate for lipid panel cholesterol medication if applicable, Instruct on personal lipid levels & lipid goals/NCEP guidelines, Instruct on cholesterol, Other additional plan/int Referral to dietitian:: Yes - medical nutrition therapy 30-day Reassessments:: Progressing - Diabetes (Other Core Measures) Diabetes Type: Diagnosis Type II ICD-10 E11 Insulin dependent injection/pump?: Yes Non-Insulin Dependent?: Yes Do you monitor your blood sugar at home?: Yes Referral to Diabetic Clinic:: Yes Outcomes/Goals:: Able to state symptoms of, Able to state, Able to state, Other additional Intervention/Plan:: Instruct on, Refer to, Instruct on, Other 30-day Reassessments:: Progressing - Weight Mgt (Other Care) Height: 5 ft 9 in Weight:: 114.532 kg BMI: 37.3 Diagnosis Overweight/Obesity BMI> 30% ICD-10 E66: Yes Diagnosis High BMI/Morbid Obesity BMI> 35% ICD-10 Z68: Yes Outcomes/Goals: Pt sets, maintains & shows weight loss goal & trend during rehab, Other additional outcomes/goals Intervention/Plan: Instruct on ideal BMI & set weight loss goal w/patient, Assist pt to ID & incorporate diet changes for weight loss by S9, Refer to Structured Weight Loss program as appropriate, Encourage goal of using 250-300dcal per session for weight loss, Other additional plan/interventions 30 day Reassessments:: Progressing - Healthy Eating Habits Will attend diet classes:: Yes Intervention/Plan:: Assess current eating habits, Other Additional plan/interventions 30-day Reassessments:: Progressing - Education Gave educational materials for:: Signs & symptoms of hypoglycemia, Signs & symptoms of hyperglycemia, Relate diabetes to coronary artery disease, Healthy eating Nutrition - 60-Day Assessment Nutrition - 90-Day Assessment Nutrition - Final Assessment Medical - Initial Assessment Medical- 30-Day Assessment - Visit Date of Eval: 08/29/21 Session #:: 10 - Medication Compliance Preventative Medication(s):: Aspirin, Clopidogrel/P2Y12 inhibit, Statin/lipid, Beta babs H/O mental health issues: depression, anxiety, or addiction?: No Doesn?t believe in the benefits of treatment?: No Believes medications are unnecessary or harmful?: No Has a concern about medication side effects?: No Expresses concern over the cost of medications?: No Outcomes/Goals: Verbalizes medications,desired effect & common side effects @ DC, Pt self-reports following medication regimen, Keeps card in wallet w/medications listed by DC, Other additional outcome/goals: Interventions/plans: Instruct on medication effects & side effects, Review medication list w/patient every two weeks, Instruct importance of taking meds as ordered & assist problem solving, Other additional 30-day Reassessments:: Progressing - Tobacco Use Tobacco Use: Non-smoker - Hypertension Hypertension Diagnosis:: Hypertension ICD-10 I10 Resting Blood Pressure:: 140/84 [place] [employer] Hypertension Guidelines: [place] [employer] Hypertension Guidelines. Normal BP Less than 120/80. Elevated BP 120/80. Hypertension Stage 1: BP 130-139/80-89. Hypertesnion Stage 2: BP 140 or higher/90 or higher. Hypertension Crisis: BP higher than 180/120 Peak Exercise Blood Pressure:: 144/86 Outcomes/Goals: Able to verbalize/achieve optimal blood pressure <130/80, Incorporates diet changes & exercise for blood pressure control by DC, Other additional outcomes/goals Interventions/plan: Instruct on optimal blood pressure, hypertension & medications, Instruct on effects of sodium, alcohol, stress, exercise &hypertension, Other additional plan/interventions 30 day Reassessments:: Progressing - Tobacco Cessation Referral Smoking Cessation Referral:: No Individual Education/Counseling:: No Education Schedule Given:: Yes Medical- 60-Day Assessment Medical- 90-Day Assessment Medical - Final Assessment Psychosocial - Initial Assess Psychosocial - 30-Day Assess - VIsit Date of Eval: 08/29/21 Session #:: 10 History of previous Mental disease:: No - Outcomes/Goals: See list Psychosocial Outcomes/Goals:: ID's personal stressors & 2 strategies to manage stress by discharge, Other Additional outcome/goals: - Intervention/Plan: See List Interventions/Plan:: Assess stressors,coping strategies & signs of derpression on admission, Instruct/assist pt to develop coping & personal stress Mgt strategies, Refer to Behavioral Health if appropriate, Refer to Physician if appropriate, Instruct patient to recognize signs & symptoms of depression, Instruct patient to recog, Other additional plan/intervention - 30-day Reassessments: 30 day Reassessments:: Progressing Psychosocial - 60-Day Assess Psychosocial - 90-Day Assess Psychosocial - Final Assessmen Patient Health Questionnaire 30-Day Re-eval Assessment 1. Little interest or pleasure in doing things: Not at all 2. Feeling down, depressed, or hopeless: Not at all 3. Trouble falling or staying asleep, or sleeping too much: Not at all 4. Feeling tired or having little energy: Not at all 5. Poor appetite or overeating: Not at all 6. Feeling bad about yourself -- or that you are a failure or have let yourself or your family down: Not at all 7. Trouble concentrating on things, such as reading the newspaper or watching television: Not at all 8. Moving or speaking so slowly that other people could have noticed. Or the opposite - being so fidgety or restless that you have been moving around a lot more than usual: Not at all 9. Thoughts that you would be better off , or of hurting yourself in some way: Not at all How difficult have these problems made it for you to do your work, take care of things at home, or get along with other people?: Not difficult at all Total Score: 0 Self-Efficacy 30-Day Re-eval Assessment We would like to know how confident you are in doing certain activities. Please select your confidence level for:: Select your confidence level for the following using the scale 1-10 where 1 is not at all confident and 10 is totally confident. Your score is the average of all 6 responses. Fatigue: How confident are you that you can keep the fatigue caused by your disease from interfering with the things you want to do? Select Number: 10 Physical Discomfort or Pain: How confident are you that you can keep the physical discomfort or pain of your disease from interfering with the things you want to do? Select Number: 8 Emotional Distress: How confident are you that you can keep the emotional distress caused by your disease from interfering with the things you want to do? Select Number: 10 Other Symptoms or Health Problems: How confident are you that you can keep other symptoms or health problems from interfering with the things you want to do? Select Number: 10 Different Tasks and Activities: How confident are you that you can do the different tasks and activities needed to manage your health condition so as to reduce your need to see a doctor? Select Number: 10 Medication: How confident are you that you can do things other than just taking medication to reduce how much your illness affects your everyday life? Select Number: 10 Total Score:: 9 Nutrition Survey
[2021-08-29 15:14] VITALS: BP 140/84; BP 144/86; BMI 37.3
== END 2021-09-13 23:59 ==
LOC: CR 08:00
PROVIDERS: PCP Family Medicine; Referring Provider Internal Medicine Cardiovascular Disease; Visit Provider Internal Medicine Cardiovascular Disease
DX: Z95.1 Presence of aortocoronary bypass graft (principal)
CPT/HCPCS: 93798

== ENCOUNTER 2021-09-29 13:47 | Outpatient (RCR) | payer OTHER, SELFPAY ==
[2021-08-29 15:14] VITALS: BMI 37.3
[2021-09-27 10:19] VITALS: BMI 36.5
== END 2021-10-13 23:59 ==
LOC: DC 13:47
PROVIDERS: PCP Family Medicine; Referring Provider Internal Medicine Cardiovascular Disease; Visit Provider Internal Medicine Cardiovascular Disease
DX: E11.9 Type 2 diabetes mellitus without complications (principal); E78.00 Pure hypercholesterolemia, unspecified
CPT/HCPCS: 97803

== ENCOUNTER 2021-10-12 08:00 | Outpatient (RCR) | payer OTHER, SELFPAY ==
[2021-08-29 15:14] VITALS: BMI 37.3
[2021-09-14 01:07] VITALS: BP 140/84; BP 144/86
--- NOTE | 2021-09-27 09:53 | CR.ITP_ITS ---
Diagnosis Exercise - 60-day Assessment - Visit Date of Eval: 09/27/21 Session #:: 20 - Patient has missed 4 sessions due to other medical care. - Physician Prescribed Exercise Modalities: Treadmill, NuStep, Lateral Geriatric Case Manager Frequency: 3x/week for 12 weeks [36 sessions] Intensity: 60-80% of age predicted maximum heart rate reserve Current METSs:: 5.5 Target Heart Rate:: 97-127 Current RPE:: 13-14 Maximum Excercise HR:: 120 Resting Blood Pressure: 146/78 Maximum Exercise Blood Pressure: 148/82 EKG Type: NSR to sinus tach w/rare PVC - Outcomes & Goals Goals:: Verbalizes understanding of THR, RPE & goal METS by session 6, Documents in home exercise log/reports 30 min aerobic 5 day/wk by DC, Demonstrates accurate pulse taking by DC - Intervention & Plan Exercise Program Goals: Instruct on personal THR & RPE, Instruct on MET level & personal MET goal, Show patient to take own pulse /validate performance until accurate, Instruct on home exercise - 30-day Reassessments 30 day Reassessments:: Met - Physical Activity Home Exercise Physical Activity - Home Exercise: Safe Exercise, Warm-up, Self-monitoring, Cool-Down, Home Exercise > 30 min Daily, Sitting Time <3 hours/daily - Outcomes & Goals Outcomes/Goals: Demonstrates correct Warm-up/exercise Cool-Down (S3) if = 2.5 METs, Verbalizes symptoms of exercise intolerance by Session 3 (S3), Demonstrate safe equipment use (S3) & follows exercise prescrition (6) - Intervention & Plan Plan/Intervention: Instruct warm-up & cool-down if exercising at > 2 METs, Instruct on symptoms of exercise intolerance & actions to take, Instruct & monitor on saf, Assess intial functional capacity & safety risk - 30-day Reassessments 30 day Reassessments:: Met Nutrition - Initial Assessment Nutrition - 30-Day Assessment Nutrition - 60-Day Assessment - Program Goals Nutrition Program Goals: LDL <100 optimal. 100 - 129 Near optimal. 130 - 159 Borderline High. 160 - 189 High. Total Cholesterol <200 desirable. 200 - 239 Borderline High. >/= 240 High. HDL < 40 Low >/=60 High. Triglycerides <150 desirable. <199 optimal. VlDL 5 - 40. HgbA1C <7%. BMI <25 Patient has diagnosis of Hyperlipidemia (ICD E78)?: Yes - Visit Date of Assessment:: 09/27/21 Session #:: 22 - Cholesterol/Lipids Determine presence & major risk factors that modify LDL goal: Hypertension or hypertensive medication, Age men > 45 years; women >/= 55 years Outcomes/Goals: Pt IDs own risk factors & lifestyle modifications by Session 10, Verbalizes symptoms of angina & response by session 3., Pt independently manages Intervention/Plan: Instruct on personal lipid levels & lipid goals/NCEP guidelines, Instruct on cholesterol Referral to dietitian:: No - Seen on 08/31/2021 30-day Reassessments:: Progressing - Diabetes (Other Core Measures) Diabetes Type: Diagnosis Type II ICD-10 E11 Insulin dependent injection/pump?: Yes Non-Insulin Dependent?: Yes Do you monitor your blood sugar at home?: Yes Referral to Diabetic Clinic:: Yes Outcomes/Goals:: Able to state symptoms of, Able to state, Able to state Intervention/Plan:: Instruct on, Instruct on 30-day Reassessments:: Progressing - Weight Mgt (Other Care) Not Applicable: No Height: 5 ft 9 in Weight:: 247 lb 8 oz BMI: 36.5 Diagnosis Overweight/Obesity BMI> 30% ICD-10 E66: Yes Diagnosis High BMI/Morbid Obesity BMI> 35% ICD-10 Z68: Yes Outcomes/Goals: Pt sets, maintains & shows weight loss goal & trend during rehab Intervention/Plan: Instruct on ideal BMI & set weight loss goal w/patient, Assist pt to ID & incorporate diet changes for weight loss by S9, Encourage goal of using 250-300dcal per session for weight loss 30 day Reassessments:: Progressing - Healthy Eating Habits Will attend diet classes:: Yes Outcomes/Goals:: Consume diet rich in vegs,fruits,whole grain/high fiber,fish,lean meat, Limit sat/trans fats,cholesterol & added salts & sugars Intervention/Plan:: Assess current eating habits 30-day Reassessments:: Progressing - Education Gave educational materials for:: Signs & symptoms of hypoglycemia, Signs & symptoms of hyperglycemia, Relate diabetes to coronary artery disease, Healthy eating Nutrition - 90-Day Assessment Nutrition - Final Assessment Medical - Initial Assessment Medical- 30-Day Assessment Medical- 60-Day Assessment - Visit Date of Eval: 09/27/21 - Session #:: 22 - Medication Compliance Preventative Medication(s):: Aspirin, Clopidogrel/P2Y12 inhibit, Statin/lipid, Beta babs H/O mental health issues: depression, anxiety, or addiction?: No Doesn?t believe in the benefits of treatment?: No Believes medications are unnecessary or harmful?: No Has a concern about medication side effects?: No Expresses concern over the cost of medications?: No Outcomes/Goals: Verbalizes medications,desired effect & common side effects @ DC, Pt self-reports following medication regimen, Keeps card in wallet w/medications listed by DC Interventions/plans: Instruct on medication effects & side effects, Review medication list w/patient every two weeks, Instruct importance of taking meds as ordered & assist problem solving 30-day Reassessments:: Met - Hypertension Resting Blood Pressure:: 146/78 [place] [employer] Hypertension Guidelines: [place] [employer] Hypertension Guidelines. Normal BP Less than 120/80. Elevated BP 120/80. Hypertension Stage 1: BP 130-139/80-89. Hypertesnion Stage 2: BP 140 or higher/90 or higher. Hypertension Crisis: BP higher than 180/120 Peak Exercise Blood Pressure:: 148/82 Outcomes/Goals: Able to verbalize/achieve optimal blood pressure <130/80, Incorporates diet changes & exercise for blood pressure control by DC Interventions/plan: Instruct on optimal blood pressure, hypertension & medications, Instruct on effects of sodium, alcohol, stress, exercise &hypertension 30 day Reassessments:: Progressing - Tobacco Cessation Referral Smoking Cessation Referral:: No Individual Education/Counseling:: No Education Schedule Given:: Yes Medical- 90-Day Assessment Medical - Final Assessment Psychosocial - Initial Assess Psychosocial - 30-Day Assess Psychosocial - 60-Day Assess - VIsit Date of Eval: 09/27/21 Session #:: 22 Not Applicable: Yes History of previous Mental disease:: No - Psychosocial Test Tool Used:: PHQ-9 Questionnaire phq-9 Severity: Severity. 1-4 Minimal Depression. 5-9 Mild Depression. 10-14 Moderate Depression. 15-19 Moderately Sever Depression. 20-27 Severe Depression. Rule: - Referral to Behavioral Health PS - Interventions: Yes Attend Stress Management Classes, No Referral to Behavioral Health if PHQ-9 score >9:, No Referral to [facility], No Referral to Physician if PHQ-9 if score is 5-9: - Outcomes/Goals: See list Psychosocial Outcomes/Goals:: ID's personal stressors & 2 strategies to manage stress by discharge - Intervention/Plan: See List Interventions/Plan:: Assess stressors,coping strategies & signs of derpression on admission - 30-day Reassessments: 30 day Reassessments:: Met Psychosocial - 90-Day Assess Psychosocial - Final Assessmen Patient Health Questionnaire 60-Day Re-eval Assessment 1. Little interest or pleasure in doing things: Not at all 2. Feeling down, depressed, or hopeless: Not at all 3. Trouble falling or staying asleep, or sleeping too much: Not at all 4. Feeling tired or having little energy: Not at all 5. Poor appetite or overeating: Not at all 6. Feeling bad about yourself -- or that you are a failure or have let yourself or your family down: Not at all 7. Trouble concentrating on things, such as reading the newspaper or watching television: Not at all 8. Moving or speaking so slowly that other people could have noticed. Or the opposite - being so fidgety or restless that you have been moving around a lot more than usual: Not at all 9. Thoughts that you would be better off , or of hurting yourself in some way: Not at all How difficult have these problems made it for you to do your work, take care of things at home, or get along with other people?: Not difficult at all Total Score: 0 Self-Efficacy 60-Day Re-eval Assessment We would like to know how confident you are in doing certain activities. Please select your confidence level for:: Select your confidence level for the following using the scale 1-10 where 1 is not at all confident and 10 is totally confident. Your score is the average of all 6 responses. Fatigue: How confident are you that you can keep the fatigue caused by your di sease from interfering with the things you want to do? Select Number: 10 Physical Discomfort or Pain: How confident are you that you can keep the phys ical discomfort or pain of your disease from interfering with the things you want to do? Select Number: 10 Emotional Distress: How confident are you that you can keep the emotional distress caused by your disease from interfering with the things you want to do? Select Number: 10 Other Symptoms or Health Problems: How confident are you that you can keep other symptoms or health problems from interfering with the things you want to do? Select Number: 10 Different Tasks and Activities: How confident are you that you can do the different tasks and activities needed to manage your health condition so as to reduce your need to see a doctor? Select Number: 10 Medication: How confident are you that you can do things other than just taking medication to reduce how much your illness affects your everyday life? Select Number: 10 Total Score:: 10 Nutrition Survey
[2021-09-27 10:19] VITALS: BP 146/78; BP 148/82; BMI 36.5
== END 2021-10-13 23:59 ==
LOC: CR 08:00
PROVIDERS: PCP Family Medicine; Referring Provider Internal Medicine Cardiovascular Disease; Visit Provider Internal Medicine Cardiovascular Disease
DX: Z95.1 Presence of aortocoronary bypass graft (principal)
CPT/HCPCS: 93798

== ENCOUNTER → 2021-10-25 | Outpatient (CLI) | payer OTHER, SELFPAY ==
[2021-09-27 10:19] VITALS: BMI 36.5
[2021-10-25 13:37] LABS: AST(SGOT) 16 U/L (15-37); Alanine Aminotransfer ALT/SGPT 19 U/L (16-61); Albumin, Serum 3.5 g/dL (3.2-5.0); Alkaline Phosphatase 78 U/L (45-117); Bilirubin, Direct 0.17 mg/dL (0.00-0.30); Cholesterol 146 mg/dL (200); Globulin 3.5 g/dL (2.2-4.2); High Density Lipoprotein 41 mg/dL; Triglycerides 128 mg/dL; Very Low Density Lipoprotein 26 mg/dL (5-40)
== END | disposition home or self-care (01) ==
LOC: LAB 11:34
PROVIDERS: PCP Family Medicine; Visit Provider Physician Assistant Medical
DX: E78.5 Hyperlipidemia, unspecified (principal); I42.9 Cardiomyopathy, unspecified; Z95.1 Presence of aortocoronary bypass graft
CPT/HCPCS: 36415; 80061; 80076

== ENCOUNTER → 2021-11-01 | Outpatient (CLI) | payer OTHER, SELFPAY ==
[2021-10-26 07:31] VITALS: BMI 35.7
--- NOTE | 2021-11-01 13:16 | ECHOLC_ITS ---
Reason For Study: Cardiomyopathy Procedure This was a limited 2D transthoracic echocardiogram. The study was technically difficult. Contrast injection was performed. Exam performed in department. Left Ventricle Normal LV size. Mild segmental systolic dysfunction (see wall motion). The estimated ejection fraction is 50 %. Diastolic function is indeterminate. Mid-Anterior : Hypokinetic. Mid-Inferior: Hypokinetic. Mid-inferoseptal : Hypokinetic. Mid-anteroseptal : Hypokinetic. Inferior [place] : Hypokinetic. Septal [place] : Hypokinetic. Right Ventricle Normal RV size. Normal systolic function. Atria The left atrium is mildly enlarged. Normal right atrium. No doppler evidence for ASD. Mitral Valve There is moderate mitral annular calcification. Extension of the mitral annular calcification on the base of the posterior mitral valve leaflet. Mild focal mitral valve calcification of the anterior leaflet. Trivial mitral valve insufficiency. Tricuspid Valve Normal tricuspid valve. Mild tricuspid valve insufficiency. Aortic Valve Trisinus/trileaflet aortic valve. Mild diffuse aortic valve thickening. Moderate focal aortic valve calcification. Pulmonic Valve The pulmonic valve is not well visualized. Great Vessels The aortic root is not well visualized. Pericardium/Pleural No pericardial effusion. Medication 20 gauge I.V. with prn adaptor inserted into left arm. Diluted definity 2ml given slow IV push to enhance endocardial definition. MMode/2D Measurements & Calculations LVIDd: 5.4 cm IVSd: 0.99 cm LAV(MOD-sp2): 56.6 ml LVIDs: 4.0 cm LVPWd: 1.0 cm FS: 24.7 % Time Measurements MV dec time: 0.26 sec Doppler Measurements & Calculations MV E max timothy: 83.2 cm/sec Lat Peak E' Timothy: 7.6 cm/sec Med Peak E' [place]: 4.6 cm/sec MV A max timothy: 128.1 cm/sec E/E' lat: 11.0 E/E' med: 18.2 MV E/A: 0.65 ECHO/Echo Limited w/Contrast Interpretation Summary The study was technically difficult. Contrast injection was performed. Mild segmental systolic dysfunction (see wall motion). The estimated ejection fraction is 50 %. The left atrium is mildly enlarged. There is moderate mitral annular calcification. Extension of the mitral annular calcification on the base of the posterior mitr al valve leaflet. Mild focal mitral valve calcification of the anterior leaflet. Trivial mitral valve insufficiency. Mild tricuspid valve insufficiency. Mild diffuse aortic valve thickening. Moderate focal aortic valve calcification. Diastolic function is indeterminate. Ordering Physician: Lucy Madrigal Referring Physician: MD Rory Erasmo Performed By: Sundar Mckeon RCS
== END | disposition home or self-care (01) ==
LOC: CVS 13:15
PROVIDERS: PCP Family Medicine; Referring Provider Physician Assistant Medical; Visit Provider Physician Assistant Medical
DX: I42.9 Cardiomyopathy, unspecified (principal)
CPT/HCPCS: 93308; Q9957; A4216; C8924

== ENCOUNTER 2021-11-08 13:12 | Outpatient (RCR) | payer OTHER, SELFPAY ==
[2021-09-27 10:19] VITALS: BMI 36.5
[2021-10-26 07:31] VITALS: BMI 35.7
== END 2021-11-13 23:59 ==
LOC: DC 13:12
PROVIDERS: PCP Family Medicine; Referring Provider Internal Medicine Cardiovascular Disease; Visit Provider Internal Medicine Cardiovascular Disease
DX: E11.9 Type 2 diabetes mellitus without complications (principal); E78.00 Pure hypercholesterolemia, unspecified
CPT/HCPCS: 97803

== ENCOUNTER 2021-11-11 08:00 | Outpatient (RCR) | payer OTHER, SELFPAY ==
[2021-09-27 10:19] VITALS: BMI 36.5
[2021-10-14 00:39] VITALS: BP 146/78; BP 148/82
--- NOTE | 2021-10-26 07:15 | PCM.CR.ITP ---
Diagnosis Exercise - Final/Discharge - Visit Date of Eval: 10/26/21 Session #:: 29 - Patient has missed 6 sessions overall due to other medical treatment - Physician Prescribed Exercise Modalities: Treadmill, NuStep, Lateral [place] Frequency: 3x/week for 12 weeks [36 sessions] Intensity: 60-80% of age predicted maximum heart rate reserve Current METSs:: 5.5 Target Heart Rate:: 97-127 Current RPE:: 12-13 Maximum Excercise HR:: 138 Resting Blood Pressure: 130/80 Maximum Exercise Blood Pressure: 154/80 - NuStep device EKG Type: NSR to sinus tach with occasional PVCs Current Physical Activity or Exercising minutes: 38:16 - Outcomes & Goals Goals:: Verbalizes understanding of THR, RPE & goal METS by session 6, Documents in home exercise log/reports 30 min aerobic 5 day/wk by DC, Demonstrates accurate pulse taking by DC - Intervention & Plan Exercise Program Goals: Instruct on personal THR & RPE, Instruct on MET level & personal MET goal, Show patient to take own pulse /validate performance until accurate, Instruct on home exercise - Physical Activity Home Exercise Physical Activity - Home Exercise: Safe Exercise, Warm-up, Self-monitoring, Cool-Down, Home Exercise > 30 min Daily, Sitting Time <3 hours/daily - Outcomes & Goals Outcomes/Goals: Demonstrates correct Warm-up/exercise Cool-Down (S3) if = 2.5 METs, Verbalizes symptoms of exercise intolerance by Session 3 (S3), Demonstrate safe equipment use (S3) & follows exercise prescrition (6) - Intervention & Plan Plan/Intervention: Instruct warm-up & cool-down if exercising at > 2 METs, Instruct on symptoms of exercise intolerance & actions to take, Instruct & monitor on saf, Assess intial functional capacity & safety risk - 30-day Reassessments 30 day Reassessments:: Met - Patient max'd at current MET levels due to HR Nutrition - Initial Assessment Nutrition - 30-Day Assessment Nutrition - 60-Day Assessment Nutrition - 90-Day Assessment Nutrition - Final Assessment - Program Goals Nutrition Program Goals: LDL <100 optimal. 100 - 129 Near optimal. 130 - 159 Borderline High. 160 - 189 High. Total Cholesterol <200 desirable. 200 - 239 Borderline High. >/= 240 High. HDL < 40 Low >/=60 High. Triglycerides <150 desirable. <199 optimal. VlDL 5 - 40. HgbA1C <7%. BMI <25 Patient has diagnosis of Hyperlipidemia (ICD E78)?: Yes - Visit Date of Assessment:: 10/26/21 Session #:: 29 - Cholesterol/Lipids Triglycerides (mg/dL): 128 - 10/25/2021 Total Cholesterol (mg/dL): 146 LDL Cholesterol (mg/dL): 79 HDL Cholesterol (mg/dL): 41 Determine presence & major risk factors that modify LDL goal: Hypertension or hypertensive medication, Family history of premature CHD in Male < 55 years: female <65 yearsFa, Age men > 45 years; women >/= 55 years Outcomes/Goals: Pt IDs own risk factors & lifestyle modifications by Session 10, Verbalizes symptoms of angina & response by session 3., Pt independently manages Intervention/Plan: Instruct on personal lipid levels & lipid goals/NCEP guidelines, Instruct on cholesterol 30-day Reassessments:: Met - Diabetes (Other Core Measures) Diabetes Type: Diagnosis Type II ICD-10 E11 Fasting blood glucose:: 131 - 10/25/2021 Hgb A1C (4.2 - 6.3): N/A Insulin dependent injection/pump?: Yes Non-Insulin Dependent?: Yes Do you monitor your blood sugar at home?: Yes Outcomes/Goals:: Able to state symptoms of, Able to state, Able to state Intervention/Plan:: Instruct on, Instruct on 30-day Reassessments:: Met - Weight Mgt (Other Care) Height: 5 ft 9 in Weight:: 242 lb - loss of 5# THIS 30-DAYS!! TOTAL WEIGHT LOSS 6.5# BMI: 35.7 Diagnosis Overweight/Obesity BMI> 30% ICD-10 E66: Yes Diagnosis High BMI/Morbid Obesity BMI> 35% ICD-10 Z68: Yes Outcomes/Goals: Pt sets, maintains & shows weight loss goal & trend during rehab Intervention/Plan: Instruct on ideal BMI & set weight loss goal w/patient, Assist pt to ID & incorporate diet changes for weight loss by S9, Encourage goal of using 250-300dcal per session for weight loss 30 day Reassessments:: Progressing - Healthy Eating Habits Will attend diet classes:: Yes Outcomes/Goals:: Consume diet rich in vegs,fruits,whole grain/high fiber,fish,lean meat, Limit sat/trans fats,cholesterol & added salts & sugars Intervention/Plan:: Assess current eating habits 30-day Reassessments:: Met - Education Gave educational materials for:: Signs & symptoms of hypoglycemia, Signs & symptoms of hyperglycemia, Relate diabetes to coronary artery disease, Healthy eating Medical - Initial Assessment Medical- 30-Day Assessment Medical- 60-Day Assessment Medical- 90-Day Assessment Medical - Final Assessment - Visit Date of Eval: 10/26/21 Session #:: 29 - Medication Compliance Preventative Medication(s):: Aspirin, Clopidogrel/P2Y12 inhibit, Statin/lipid, Beta babs H/O mental health issues: depression, anxiety, or addiction?: No Doesn?t believe in the benefits of treatment?: No Believes medications are unnecessary or harmful?: No Has a concern about medication side effects?: No Expresses concern over the cost of medications?: No Outcomes/Goals: Verbalizes medications,desired effect & common side effects @ DC, Pt self-reports following medication regimen, Keeps card in wallet w/medications listed by DC Interventions/plans: Instruct on medication effects & side effects, Review medication list w/patient every two weeks, Instruct importance of taking meds as ordered & assist problem solving 30-day Reassessments:: Met - Tobacco Use Tobacco Use: Non-smoker - Hypertension Hypertension Diagnosis:: Hypertension ICD-10 I10 Resting Blood Pressure:: 128/84 [place] [employer] Hypertension Guidelines: [place] [employer] Hypertension Guidelines. Normal BP Less than 120/80. Elevated BP 120/80. Hypertension Stage 1: BP 130-139/80-89. Hypertesnion Stage 2: BP 140 or higher/90 or higher. Hypertension Crisis: BP higher than 180/120 Peak Exercise Blood Pressure:: 154/80 Outcomes/Goals: Able to verbalize/achieve optimal blood pressure <130/80, Incorporates diet changes & exercise for blood pressure control by DC Interventions/plan: Instruct on optimal blood pressure, hypertension & medications, Instruct on effects of sodium, alcohol, stress, exercise &hypertension 30 day Reassessments:: Progressing - Tobacco Cessation Referral Smoking Cessation Referral:: No Individual Education/Counseling:: No Education Schedule Given:: Yes - Actively participated in education Psychosocial - Initial Assess Psychosocial - 30-Day Assess Psychosocial - 60-Day Assess Psychosocial - 90-Day Assess Psychosocial - Final Assessmen - VIsit Date of Eval: 10/26/21 Session #:: 29 Not Applicable: Yes History of previous Mental disease:: No - Psychosocial Test Tool Used:: PHQ-9 Questionnaire phq-9 Severity: Severity. 1-4 Minimal Depression. 5-9 Mild Depression. 10-14 Moderate Depression. 15-19 Moderately Sever Depression. 20-27 Severe Depression. Rule: - Referral to Behavioral Health PS - Interventions: Yes Attend Stress Management Classes, No Referral to Behavioral Health if PHQ-9 score >9:, No Referral to [facility], No Referral to Physician if PHQ-9 if score is 5-9: - Outcomes/Goals: See list Psychosocial Outcomes/Goals:: ID's personal stressors & 2 strategies to manage stress by discharge - Intervention/Plan: See List Interventions/Plan:: Assess stressors,coping strategies & signs of derpression on admission, Instruct/assist pt to develop coping & personal stress Mgt strategies, Instruct patient to recognize signs & symptoms of depression, Instruct patient to recog - 30-day Reassessments: 30 day Reassessments:: Met Patient Health Questionnaire Discharge Assessment 1. Little interest or pleasure in doing things: Not at all 2. Feeling down, depressed, or hopeless: Not at all 3. Trouble falling or staying asleep, or sleeping too much: Not at all 4. Feeling tired or having little energy: Not at all 5. Poor appetite or overeating: Not at all 6. Feeling bad about yourself -- or that you are a failure or have let yourself or your family down: Not at all 7. Trouble concentrating on things, such as reading the newspaper or watching television: Not at all 8. Moving or speaking so slowly that other people could have noticed. Or the opposite - being so fidgety or restless that you have been moving around a lot more than usual: Not at all 9. Thoughts that you would be better off , or of hurting yourself in some way: Not at all Total Score: 0 Self-Efficacy Discharge Assessment We would like to know how confident you are in doing certain activities. Please select your confidence level for:: Select your confidence level for the following using the scale 1-10 where 1 is not at all confident and 10 is totally confident. Your score is the average of all 6 responses. Fatigue: How confident are you that you can keep the fatigue caused by your disease from interfering with the things you want to do? Select Number: 10 Physical Discomfort or Pain: How confident are you that you can keep the physical discomfort or pain of your disease from interfering with the things you want to do? Select Number: 10 Emotional Distress: How confident are you that you can keep the emotional distress caused by your disease from interfering with the things you want to do? Select Number: 10 Other Symptoms or Health Problems: How confident are you that you can keep other symptoms or health problems from interfering with the things you want to do? Select Number: 10 Different Tasks and Activities: How confident are you that you can do the different tasks and activities needed to manage your health condition so as to reduce your need to see a doctor? Select Number: 10 Medication: How confident are you that you can do things other than just taking medication to reduce how much your illness affects your everyday life? Select Number: 10 Total Score:: 10 Nutrition Survey
[2021-10-26 07:31] VITALS: BP 128/84; BP 130/80; BP 154/80; BMI 35.7
--- NOTE | 2021-11-10 12:52 | PCM.CR.ITP ---
Diagnosis - General Information Admitting Diagnosis: S/P CABG Secondary Diagnosis: DM Type II, HTN, Hyperlipidemia, ASHD, Cardiomyopathy Personal Learning Style:: Audio/Visual, Written Barriers to Learning: No Barriers Stage of change r/t lifestyle modifications:: Action Gave educational material for:: Treating Heart Disease, Emotions & Heart Disease, Stress Management & Relaxation, Sleep Disorders & Heart Disease, How The Heart Works, What it means to have Heart Disease, How Coronary Artery Disease is Diagnosed, Heart Procedures, What Heart Medications Do, Risk Factors & Modifications, Living an Active Life, Nutrition - Education/Goals Individual Counseling: Initial Assessment: Abnormal Cholesterol Levels, High Blood Pressure, Overweight/Obesity - BMI 35.7, Diabetes, A. Fasting Blood Sugar >100 - 131 A1c 5.3% Cardiac Rehabilitation Goals: 1. Maintain the individual as the primary focus of care. 2. To improve the patient's quality of life. 3. Identification of cardiac risk factors and provide cardiac risk factor management. 4. Enhance the psychosocial status of the patient. 5. Reconditioning enough to allow the patient to resume customary activities. 6. Control symptoms of cardiac disease Personal Goals: Initial Assessment: Improve energy level - 5=Met his goal, Get back to work, or to resume activities faster - 5=Met his goal, Improve muscle strength and endurance - 4=Moderately improved, Improve diet and eating habits (eat healthier) - 3=Slightly better knows he has to continue to work on this., Control risk factors (learn risk factor modification) - 4= Moderately improved., Discharge Reassessment: Improve energy level, Get back to work, or to resume activities faster, Improve muscle strength and endurance, Improve diet and eating habits (eat healthier), Control risk factors (learn risk factor modification) Scale for measuring improvement of personal goals: Enter appropriate number in Comments. 2 = Unchanged. 3 = Slightly Better. 4 = Moderate Improvement. 5 = Met my Goal - Diagnosis & Disease Process Outcomes/Goals: Pt IDs own risk factors & lifestyle modifications by Session 10, Verbalizes symptoms of angina & response by session 3., Pt independently manages Plan/Interventions: Assist Pt to ID & engage in lifestyle modification to reduce CVD risk, Instruct on individual risk factors, Review symptoms of angina & emergency actions, Review secondary diagnosis & identify educational needs. 30 day Reassessments:: Progressing - Patient is able to verbalize signs and symptoms of angina & proper response including proper use of his nitroglycerine. 30 day Reassessments:: Progressing - Patient is able to verbalize risk factors of heart disease 30 day Reassessments:: Progressing - Patient independently manages his exercise prescription and freely rotates equipment when appropriate. 30 day Reassessments:: Met Final Reassessments:: Met - Patient verbalizes he has met his pre-program goals. He verbalizes his understanding of the need to continue weight loss. He stated he is pleased that the CR program has aided him in reducing his A1c levels and his ability to control his glucose levels. 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 - Safety Referral to Physical Therapy: No Referral to [facility] Case Management: No Fall Risk Assessed:: Yes Assistive Devices:: None Exercise - Final/Discharge - Visit Date of Eval: 11/10/21 Session #:: 36 - Physician Prescribed Exercise Modalities: Treadmill, NuStep, Lateral [place] Frequency: 3x/week for 12 weeks [36 sessions] Intensity: 60-80% of age predicted maximum heart rate reserve Current METSs:: 5.5 Target Heart Rate:: 97-127 Current RPE:: 12-14 Maximum Excercise HR:: 126 Resting Blood Pressure: 110/64 - controlled with medication Maximum Exercise Blood Pressure: 130/70 - appropriate exercise response EKG Type: Sinus rhythm to sinus tachycardia with rare PVC. - Outcomes & Goals Goals:: Verbalizes understanding of THR, RPE & goal METS by session 6, Documents in home exercise log/reports 30 min aerobic 5 day/wk by DC, Demonstrates accurate pulse taking by DC - Intervention & Plan Exercise Program Goals: Instruct on personal THR & RPE, Instruct on MET level & personal MET goal, Show patient to take own pulse /validate performance until accurate, Instruct on home exercise - 30-day Reassessments 30 day Reassessments:: Met Reassessment Notes & Comments:: Patient return demonstration of abilities to exercise independently within his THRR adn with home exercise. He plans to continue exercise at least 30 minutes daily 5 to 7 days per week. - Physical Activity Home Exercise Physical Activity - Home Exercise: Safe Exercise, Warm-up, Self-monitoring, Cool-Down, Home Exercise > 30 min Daily, Sitting Time <3 hours/daily - Outcomes & Goals Outcomes/Goals: Demonstrates correct Warm-up/exercise Cool-Down (S3) if = 2.5 METs, Verbalizes symptoms of exercise intolerance by Session 3 (S3), Demonstrate safe equipment use (S3) & follows exercise prescrition (6) - Intervention & Plan Plan/Intervention: Instruct warm-up & cool-down if exercising at > 2 METs, Instruct on symptoms of exercise intolerance & actions to take, Instruct & monitor on saf, Assess intial functional capacity & safety risk - 30-day Reassessments 30 day Reassessments:: Met - Patient demonstrates post outcome goals as stated. Nutrition - Initial Assessment Nutrition - 30-Day Assessment Nutrition - 60-Day Assessment Nutrition - 90-Day Assessment Nutrition - Final Assessment - Program Goals Nutrition Program Goals: LDL <100 optimal. 100 - 129 Near optimal. 130 - 159 Borderline High. 160 - 189 High. Total Cholesterol <200 desirable. 200 - 239 Borderline High. >/= 240 High. HDL < 40 Low >/=60 High. Triglycerides <150 desirable. <199 optimal. VlDL 5 - 40. HgbA1C <7%. BMI <25 Patient has diagnosis of Hyperlipidemia (ICD E78)?: Yes - Visit Date of Assessment:: 11/10/21 Session #:: 36 - Cholesterol/Lipids Triglycerides (mg/dL): 128 - Total Cholesterol (mg/dL): 146 LDL Cholesterol (mg/dL): 79 HDL Cholesterol (mg/dL): 41 Lipid Medication: Atorvastatin Determine presence & major risk factors that modify LDL goal: Hypertension or hypertensive medication, Age men > 45 years; women >/= 55 years Outcomes/Goals: Pt IDs own risk factors & lifestyle modifications by Session 10, Verbalizes symptoms of angina & response by session 3., Pt independently manages Intervention/Plan: Instruct on personal lipid levels & lipid goals/NCEP guidelines, Instruct on cholesterol Referral to dietitian:: No - Patient met with Nutritional Service on 08/31/2021. Reassessment Notes & Comments:: Patient goals established with Nutritional Services. - Diabetes (Other Core Measures) Diabetes Type: Diagnosis Type II ICD-10 E11 Fasting blood glucose:: 131 Hgb A1C (4.2 - 6.3): 5.3 Insulin dependent injection/pump?: Yes - Insulin Glargine Non-Insulin Dependent?: Yes - use of Metformin Do you monitor your blood sugar at home?: Yes Referral to Diabetic Clinic:: No - Patient established care with Diabetic Clinic on 08/31/2021. Outcomes/Goals:: Able to state symptoms of, Able to state, Able to state Intervention/Plan:: Instruct on, Instruct on 30-day Reassessments:: Met Reassessment Notes & Comments:: Patient is very educated/aware of his DM care and treatment. He has dealt with this for years. Patient aware of periods of hypoglycemia/hyperglycemia and verbalizes corrective action. - Weight Mgt (Other Care) Not Applicable: No Height: 5 ft 9 in Weight:: 238 lb - Patient continues progress BMI: 35.1 Diagnosis Overweight/Obesity BMI> 30% ICD-10 E66: Yes Diagnosis High BMI/Morbid Obesity BMI> 35% ICD-10 Z68: Yes Outcomes/Goals: Pt sets, maintains & shows weight loss goal & trend during rehab Intervention/Plan: Instruct on ideal BMI & set weight loss goal w/patient, Assist pt to ID & incorporate diet changes for weight loss by S9, Encourage goal of using 250-300dcal per session for weight loss 30 day Reassessments:: Progressing Reassessment Notes & Comments:: Patient continues progress in his weight loss. He has decreased his weight from 249 participating in CR and verbalizes his awareness and importance of continuing to reduce his weight. - Healthy Eating Habits Will attend diet classes:: Yes Outcomes/Goals:: Consume diet rich in vegs,fruits,whole grain/high fiber,fish,lean meat, Limit sat/trans fats,cholesterol & added salts & sugars Intervention/Plan:: Assess current eating habits 30-day Reassessments:: Met Reassessment Notes & Comments:: Patient actively participated in education classes and [facility] care. - Education Gave educational materials for:: Signs & symptoms of hypoglycemia, Signs & symptoms of hyperglycemia, Relate diabetes to coronary artery disease, Healthy eating Medical - Initial Assessment Medical- 30-Day Assessment Medical- 60-Day Assessment Medical- 90-Day Assessment Medical - Final Assessment - Visit Date of Eval: 11/10/21 Session #:: 36 - Medication Compliance Preventative Medication(s):: Aspirin, Clopidogrel/P2Y12 inhibit, Statin/lipid, Beta babs H/O mental health issues: depression, anxiety, or addiction?: No Doesn?t believe in the benefits of treatment?: No Believes medications are unnecessary or harmful?: No Has a concern about medication side effects?: No Expresses concern over the cost of medications?: No Outcomes/Goals: Verbalizes medications,desired effect & common side effects @ DC, Pt self-reports following medication regimen, Keeps card in wallet w/medications listed by DC Interventions/plans: Instruct on medication effects & side effects, Review medication list w/patient every two weeks, Instruct importance of taking meds as ordered & assist problem solving 30-day Reassessments:: Met Reassessment Notes & Comments:: Patient MET above stated goals by the end of his CR program. - Tobacco Use Tobacco Use: Non-smoker - Hypertension Hypertension Diagnosis:: Hypertension ICD-10 I10 Resting Blood Pressure:: 110/64 - well controlled [place] [employer] Hypertension Guidelines: [place] [employer] Hypertension Guidelines. Normal BP Less than 120/80. Elevated BP 120/80. Hypertension Stage 1: BP 130-139/80-89. Hypertesnion Stage 2: BP 140 or higher/90 or higher. Hypertension Crisis: BP higher than 180/120 Peak Exercise Blood Pressure:: 130/70 - proper response to exercise Outcomes/Goals: Able to verbalize/achieve optimal blood pressure <130/80, Incorporates diet changes & exercise for blood pressure control by DC Interventions/plan: Instruct on optimal blood pressure, hypertension & medications, Instruct on effects of sodium, alcohol, stress, exercise &hypertension 30 day Reassessments:: Met - Patient met above stated goals. - Tobacco Cessation Referral Smoking Cessation Referral:: No Individual Education/Counseling:: No Education Schedule Given:: Yes - Patient actively participated in group education classes Psychosocial - Initial Assess Psychosocial - 30-Day Assess Psychosocial - 60-Day Assess Psychosocial - 90-Day Assess Psychosocial - Final Assessmen - VIsit Date of Eval: 11/10/21 Session #:: 36 Not Applicable: Yes History of previous Mental disease:: No - Psychosocial Test Tool Used:: [employer] QOL Cardiac, PHQ-9 Questionnaire Self-reported stress:: None phq-9 Severity: Severity. 1-4 Minimal Depression. 5-9 Mild Depression. 10-14 Moderate Depression. 15-19 Moderately Sever Depression. 20-27 Severe Depression. Rule: - Referral to Behavioral Health PS - Interventions: Yes Attend Stress Management Classes, No Referral to Behavioral Health if PHQ-9 score >9:, No Referral to [facility], No Referral to Physician if PHQ-9 if score is 5-9: - Outcomes/Goals: See list Psychosocial Outcomes/Goals:: ID's personal stressors & 2 strategies to manage stress by discharge - Intervention/Plan: See List Interventions/Plan:: Assess stressors,coping strategies & signs of derpression on admission, Instruct/assist pt to develop coping & personal stress Mgt strategies, Instruct patient to recognize signs & symptoms of depression, Instruct patient to recog - 30-day Reassessments: 30 day Reassessments:: Met Reassessment Notes & Comments:: Patient utilizes coping strategies/stress reduction & relaxation techniques. Patient Health Questionnaire Discharge Assessment 1. Little interest or pleasure in doing things: Not at all 2. Feeling down, depressed, or hopeless: Not at all 3. Trouble falling or staying asleep, or sleeping too much: Not at all 4. Feeling tired or having little energy: Not at all 5. Poor appetite or overeating: Not at all 6. Feeling bad about yourself -- or that you are a failure or have let yourself or your family down: Not at all 7. Trouble concentrating on things, such as reading the newspaper or watching television: Not at all 8. Moving or speaking so slowly that other people could have noticed. Or the opposite - being so fidgety or restless that you have been moving around a lot more than usual: Not at all 9. Thoughts that you would be better off , or of hurting yourself in some way: Not at all How difficult have these problems made it for you to do your work, take care of things at home, or get along with other people?: Not difficult at all Total Score: 0 [place]-Q SV Test - Statements CAD is a disease of the arteries in the heart: False Examples of risk factors for heart disease: True Angina is chest pain or discomfort: True The benefits of resistance training include: True Eating more meat and dairy products: False Anti-platelet medications such as aspirin are important: True The only effective way to manage stress: False An exercise warm-up slowly increases heart rate: True Prepared, processed foods usually have high sodium: True Depression is common after a heart attack: True The statin medications lower cholesterol: True To control blood pressure, lower the amount of sodium: True If someone gets chest discomfort during walking: False Transfats are partially hydrogenated vegetable oils: True Sleep apnea that is not treated increases the risk: False To control cholesterol, one should become a vegetarian: False - 100% Correct answer Someone knows if he/she is exercising at the right level: True Diabetes cannot be prevented with exercise & health eating: False Stress is a large risk for heart attack: True A diet that can help lower blood pressure is rich in: True - Total Score Total Correct Responses: 20 Self-Efficacy Discharge Assessment We would like to know how confident you are in doing certain activities. Please select your confidence level for:: Select your confidence level for the following using the scale 1-10 where 1 is not at all confident and 10 is totally confident. Your score is the average of all 6 responses. Fatigue: How confident are you that you can keep the fatigue caused by your disease from interfering with the things you want to do? Select Number: 10 Physical Discomfort or Pain: How confident are you that you can keep the physical discomfort or pain of your disease from interfering with the things you want to do? Select Number: 10 Emotional Distress: How confident are you that you can keep the emotional distress caused by your disease from interfering with the things you want to do? Select Number: 10 Other Symptoms or Health Problems: How confident are you that you can keep other symptoms or health problems from interfering with the things you want to do? Select Number: 10 Different Tasks and Activities: How confident are you that you can do the different tasks and activities needed to manage your health condition so as to reduce your need to see a doctor? Select Number: 10 Medication: How confident are you that you can do things other than just taking medication to reduce how much your illness affects your everyday life? Select Number: 10 Total Score:: 10 Nutrition Survey - Nutrition Survey Discharge Have you lost >10 lbs over the past 2 months without trying?: No - Weight loss controlled with diet and increased exercise. Are you following a special diet at home for diabetes, low fat, or low salt?: Yes - Low Fat, No added Sodium, Diabetic Diet, Reduced caloric intake Are you interested in meeting with a dietitian for help understanding your diet?: No - Met with Nutritional Services already. Do you eat less than 3 meals a day?: No Do you eat fatty meats (inman, sausage, ribs, etc), fried foods, desserts, large amounts of salad dressings, margarine, butter, or cheese most days?: No Do you have food allergies? [Enter types in comment field]: No Do you eat in restaurants more than 3 times a week?: No Do you season food with salt, seasoning salt, or garlic salt?: No Do you used canned, boxed, frozen meals, or soups, seasoning packets?: No Total Score:: 1
[2021-11-10 13:27] VITALS: BP 110/64; BP 130/70; BMI 35.1
== END 2021-11-13 23:59 ==
LOC: CR 08:00
PROVIDERS: PCP Family Medicine; Referring Provider Internal Medicine Cardiovascular Disease; Visit Provider Internal Medicine Cardiovascular Disease
DX: Z95.1 Presence of aortocoronary bypass graft (principal)
CPT/HCPCS: 93798

== ENCOUNTER 2021-12-25 15:45 | Emergency (ER) | payer OTHER, SELFPAY ==
[2021-11-10 13:27] VITALS: BMI 35.1
[2021-12-25 15:45] VITALS: BP 111/75; PULSE 88; RESP 16; TEMP 36.9; O2SAT 97; BMI 34.2
--- NOTE | 2021-12-25 16:41 | EX.ED.GUMALE ---
HPI History of Present Illness Chief Complaint: Complaint Detail of Chief Complaint: Hematuria and trauma from urinary catheter Informant: patient Narrative Narrative: Patient presents the emergency department with complaint of hematuria since inserting a urinary catheter this morning. Patient states that he self caths once a week at the request of his urologist. He normally has been able to void on his own. For the last 5 or 6 days has had some mild dysuria. After inserting the catheter today he felt some resistance and he pushed through it and then noted some milky urine and blood. Patient has had the self cath several times since that time as he has been unable to void on his own. Patient had prostate resection in February 2021. He denies fevers. He denies nausea or vomiting. [facility] Medical History Acute epididymitis Acute UTI Angina pectoris Aortic valve disorder Atherosclerotic heart disease of [place] coronary artery without angina pectoris Cardiomyopathy High cholesterol History of left heart catheterization (LHC) (~06/02/21) History of prostate cancer History of skin cancer HLD (hyperlipidemia) Intractable pain Orchitis Orchitis and epididymitis Home Medications atorvastatin 40 mg tablet 40 mg PO DAILY cholesterol 03/26/21 [History Last Taken 05/30/21] acetaminophen 500 mg tablet 1,000 mg PO Q4H PRN Pain 06/13/21 [History Last Taken Unknown] aspirin 81 mg tablet,delayed release (Adult Low Dose Aspirin) 81 mg PO DAILY 06/13/21 [History Last Taken Unknown] clopidogrel 75 mg tablet 75 mg PO DAILY 06/13/21 [History Last Taken Unknown] folic acid 1 mg tablet 1 mg PO DAILY 06/13/21 [History Last Taken Unknown] metformin 500 mg tablet,extended release 24hr 1,000 mg PO BID #360 tabs 08/24/21 [Rx Last Taken Unknown] sitagliptin 100 mg tablet (Januvia) 100 mg PO DAILY 10/25/21 [History Last Taken Unknown] metoprolol tartrate 50 mg tablet 50 mg PO BID #180 tabs 11/03/21 [Rx Last Taken Unknown] dulaglutide 0.75 mg/0.5 mL subcutaneous pen injector (Trulicity) 0.75 mg subcut DAILY 12/25/21 [History Last Taken Unknown] ferrous sulfate 325 mg (65 mg iron) tablet 325 mg PO DAILY 12/25/21 [History Last Taken Unknown] sulfamethoxazole 500 mg tablet 500 mg PO BID 12/25/21 [History Last Taken Unknown] Allergy/AdvReac Type Severity Reaction Status Date / Time cephalexin AdvReac Pain in Verified 12/25/21 17:01 joints Family History Other Cancer Diabetes Surgical History H/O prostatectomy History of coronary artery bypass surgery (~06/08/21) Social History household members: none housing: apartment Smoking Status: Never smoker ROS ROS ED Review of Systems ROS Unobtainable: other Constitutional Constitutional ED: Reports lethargy; Denies chills, fever(s), sweats or weight loss Eyes Eyes: Denies blurry vision, change in vision or diplopia ENT ENT ED: Denies rhinorrhea or sore throat Cardiovascular Cardiovascular: Denies chest pain, orthopnea or racing heartbeat Respiratory/Chest Respiratory/Chest: Denies cough, dyspnea, dyspnea on exertion, orthopnea or sputum Gastrointestinal Gastrointestinal: Denies abdominal pain, diarrhea, nausea or vomiting Genitourinary Genitourinary ED: Reports dysuria and hematuria; Denies urinary frequency Musculoskeletal Musculoskeletal: Denies arthralgias, back pain, myalgias or neck pain Integumentary Denies abscess, Abrasions or rash Neurologic Neurologic: Denies headache(s) or weakness Psychiatric Psychiatric: Denies anxiety, depression or suicidal thoughts Endocrine Endocrinology: Denies polydipsia, polyphagia or polyuria Hematologic/Lymphatic Hematologic/Lymphatic: Denies easy bleeding, easy bruising or lymphadenopathy Allergic/Immunologic Allergic/Immunologic ED: Denies mouth swelling, tongue swelling or urticaria EXAM Physical Exam Const Vital Signs: 12/25/21 15:45 12/25/21 16:58 12/25/21 18:53 Temperature 98.4 F Temperature Source Temporal Pulse Rate 88 84 70 Respiratory Rate 16 18 18 Blood Pressure 111/75 95/59 L 101/63 Blood Pressure Mean 87 71 75 Pulse Ox 97 97 94 Oxygen Delivery Method Room Air Room Air Room Air 12/25/21 20:00 Temperature Temperature Source Pulse Rate 79 Respiratory Rate 15 Blood Pressure 101/52 L Blood Pressure Mean 68 Pulse Ox 93 Oxygen Delivery Method Room Air Positive well nourished and well developed General Appearance ED: well developed and NAD HEENT Reports TM's clear and moist mucous membranes normocephalic and atraumatic; Negative for trauma or tenderness Tympanic Membrane ED: Yes TM's clear Eyes PERRL and EOMs intact bilaterally General Eye ED: Negative for pale conjunctiva or scleral icterus Neck no lymphadenopathy, supple and no JVD General: Negative for tenderness Chest Wall inspection of chest normal and palpation of chest normal Chest: Negative for tenderness Resp normal respiratory effort and clear to auscultation bilaterally Effort and Inspection: Negative for respiratory distress or pain with movement Auscultation: Negative for rhonchi, wheezes or diminished lung sounds Cardio regular rate, regular rhythm, S1 normal heart sound, S2 normal heart sound and no murmurs Peripheral Pulses: pulses 2+ throughout GI normal to inspection, nondistended, normoactive bowel sounds, soft to palpation, non-tender, non-distended and no masses Narrative: Small amount of blood in his underwear. No blood dripping from the urethral meatus. No external evidence of trauma to his penis or urethral meatus. Back/Spine no CVA tenderness and no thoracic nor lumbar tenderness Extremity normal to inspection General Extremety ED: Negative for edema General Extremity: Negative for edema Neuro oriented x3, CN's II-XII intact bilaterally, no sensory deficits noted and gait normal Sensorium / Orientation: awake, alert, oriented to person, oriented to place and oriented to time Motor Exam: strength 5/5 throughout and strength abnormal Psych mental status grossly normal Skin no rashes or lesions noted and no wounds MDM MDM MDM Narrative Medical decision making narrative: The line established. Patient was given 2 L of fluid. He was noted to have an elevated BUN and creatinine which I suspect may be dehydrational and he does state that he has not been drinking very much lately. Patient eventually was able to void as initially when we did a bladder scan he had very little urine in the bladder. Once he was able to void he had pink-tinged milky appearing urine. Urinalysis is pending. Patient care turned over to evening physician awaiting urine results and final disposition. At this point I do not feel like catheters warranted since patient is able to void on his own. He has the ability to self cath at home should he develop retention. Patient will be advised to follow-up with his urologist as well. Lab Data Attestation: I reviewed the patient's lab results. Labs: Laboratory Results - last 24 hr 12/25/21 12/25/21 17:16 17:16 WBC 9.8 RBC 3.12 L Hgb 9.9 L Hct 28.8 L MCV 92.3 MCH 31.7 MCHC 34.4 RDW Std Deviation 51.9 H RDW Coeff of Khoa 15.7 H Plt Count 305 MPV 8.7 Immature Gran % (Auto) 1.500 H Neut % (Auto) 83.5 H Lymph % (Auto) 4.0 L Carter % (Auto) 8.9 Eos % (Auto) 1.8 Baso % (Auto) 0.3 Absolute Neuts (auto) 8.1 H Absolute Lymphs (auto) 0.39 L Nucleated RBC % 0 Platelet Estimate ADEQUATE RBC Morphology NORM C+C Sodium 134 L Potassium 5.0 Chloride 105 Carbon Dioxide 21.0 Anion Gap 8 BUN 44 H Creatinine 2.09 H Estim Creat Clear Calc 32.42 Est GFR (MDRD) Af Amer 40 L Est GFR (MDRD) Non-Af 33 L BUN/Creatinine Ratio 21.1 H Glucose 119 H Calcium 9.7 Discharge Plan Triage Chief Complaint: Complaint ED Provider: Domenico Barfield Dx/Rx/DC Orders Clinical Impression: Dysuria, Hematuria Prescriptions: No Action Januvia 100 mg tablet 100 mg PO DAILY atorvastatin 40 mg tablet 40 mg PO DAILY Label Comments: take 1 tablet by mouth once daily sulfamethoxazole 500 mg Tablet 500 mg PO BID ferrous sulfate 325 mg (65 mg iron) Tablet 325 mg PO DAILY Trulicity 0.75 mg/0.5 mL pen injector 0.75 mg SUBCUT DAILY clopidogrel 75 mg tablet 75 mg PO DAILY folic acid 1 mg tablet 1 mg PO DAILY aspirin [Adult Low Dose Aspirin] 81 mg tablet,delayed release (DR/EC) 81 mg PO DAILY acetaminophen 500 mg tablet 1,000 mg PO Q4H PRN (Reason: Pain) metformin 500 mg tablet extended release 24hr 1,000 mg PO BID Qty: 360 3RF metoprolol tartrate 50 mg tablet 50 mg PO BID Qty: 180 3RF Primary Care Provider: Erasmo Valadez Referrals: Erasmo Valadez MD [Primary Care Provider] -
[2021-12-25 16:58] VITALS: BP 95/59; PULSE 84; RESP 18; O2SAT 97
[2021-12-25 17:29] LABS: Absolute Lymphocyte Count 0.39 X10^3/uL (0.83-4.51); Absolute Neutrophil Count 8.1 X10^3/uL (2.0-7.7); Basophil# 0.03 X10^3/uL; Basophil% 0.3 % (0-1); Eosinophil# 0.18 X10^3/uL; Eosinophils% 1.8 % (0-5); Hematocrit 28.8 % (40-54); Hemoglobin 9.9 g/dL (13.0-16.5); Lymphocyte # 0.39 X10^3/ul (0.83-4.51); Mean Corp Hgb Conc 34.4 g/dL (32-36); Mean Corpuscular Hgb 31.7 pg (27.0-32.0); Mean Corpuscular Volume 92.3 fL (80-94); Mean Platelet Vol. 8.7 fl (6.2-12.0); Monocyte# 0.87 X10^3/uL; Monocyte% 8.9 % (0-10); NRBC Flagged by Analyzer 0 % (0-5); Neutrophil # 8.14 X10^3/uL (2.7-7.7); Neutrophil % 83.5 % (47-70); POSITIVE DIFFERENTIAL YES; Platelet Count 305 K/mm3 (150-450); RBC Distribution Width CV 15.7 % (11.6-14.6); RBC Distribution Width SD 51.9 fl (35.1-43.9); Red Blood Count 3.12 M/mm3 (4.6-6.2); White Blood Count 9.8 K/mm3 (4.4-11.0)
[2021-12-25 17:34] LABS: Differential Indicated SCAN CRITERIA MET
[2021-12-25 17:44] LABS: Anion Gap 8 (5-15); BUN 44 mg/dL (7-18); BUN/Creat Ratio 21.1 RATIO (10-20); Calcium,Total 9.7 mg/dL (8.5-10.1); Chloride 105 mmol/L (98-107); Creatinine, Serum 2.09 mg/dL (0.70-1.30); EST Glomerular Filtration Rate 33 mL/min (>60); Est Glom Filt Rate - Afr Amer 40 mL/min (>60); Estimated Creatinine Clearance 32.42 ml/min; Glucose 119 mg/dL (74-106); Sodium Level 134 mmol/L (136-145)
[2021-12-25 18:04] LABS: Platelet Estimate ADEQUATE (ADEQ); Red Cell Morphology NORM C+C NORMAL (NORM C&C)
[2021-12-25 18:53] VITALS: BP 101/63; PULSE 70; RESP 18; O2SAT 94
[2021-12-25] MEDS: 0.9% Normal Saline 1,000 ML 999 ML IV ×2 (18:56→21:07)
[2021-12-25] MEDS: Mag Hydrox/Al Hydrox/Simeth 30 ML UDC PO (19:36)
[2021-12-25 20:00] VITALS: BP 101/52; PULSE 79; RESP 15; O2SAT 93
[2021-12-25 22:30] LABS: Mucous, Urine 0 SEEN /hpf (<or=2+)
[2021-12-25 22:32] LABS: Color, Urine Yellow (Yellow); Glucose, Dipstick Normal (Normal); Ketone-Dipstick Negative (Negative); Leukocyte Esterase-Dipstick 500 /ul (Negative); Nitrite-Dipstick Negative (Negative); Occult Blood-Urine 250 /ul (Negative); Protein-Dipstick 500 mg/dl (Negative); Specific Gravity, Urine 1.015 (1.002-1.030); Urine Bilirubin Dipstick Negative (Negative); Urine Clarity Turbid (Clear); Urine Urobilinogen Normal (Normal)
[2021-12-25 22:48] LABS: Bacteria 1+ /hpf (None Seen); Red Blood Cells-Urine > 100 SEEN /hpf (0-5); Squamous Epithelial Cells - UA 0-5 SEEN /hpf (0-5); White Blood Cells >100 SEEN /hpf (0-5)
[2021-12-25 22:49] LABS: Amorphous Sediment 1+ URATE
[2021-12-25] MEDS: Nitrofurantoin Macrocrystals 100 MG Capsule PO (23:41)
[2021-12-25 23:42] VITALS: BP 116/54; PULSE 79; RESP 16; O2SAT 99
== END 2021-12-25 23:54 | disposition home or self-care (01) ==
PROVIDERS: Emergency Provider Emergency Medicine; PCP Family Medicine; Visit Provider Emergency Medicine
DX: R30.0 Dysuria (principal); I42.9 Cardiomyopathy, unspecified; R31.9 Hematuria, unspecified; E78.00 Pure hypercholesterolemia, unspecified; I25.10 Atherosclerotic heart disease of native coronary artery without angina pectoris; Z95.1 Presence of aortocoronary bypass graft; Z79.82 Long term (current) use of aspirin; Z79.84 Long term (current) use of oral hypoglycemic drugs; Z79.899 Other long term (current) drug therapy
CPT/HCPCS: 80048; 81001; 85025; 87086; 99284; J7030; A4216

== ENCOUNTER → 2022-05-01 | Outpatient (CLI) | payer MEDICARE, OTHER, SELFPAY ==
[2021-11-10 13:27] VITALS: BMI 35.1
[2022-05-01 11:14] LABS: ALB/GLOB Ratio 0.8 RATIO (0.9-2.4); AST(SGOT) 17 U/L (15-37); Alanine Aminotransfer ALT/SGPT 17 U/L (16-61); Albumin, Serum 3.2 g/dL (3.2-5.0); Alkaline Phosphatase 96 U/L (45-117); Anion Gap 9 (5-15); BUN 16 mg/dL (7-18); BUN/Creat Ratio 19.2 RATIO (10-20); Bilirubin, Direct 0.08 mg/dL (0.00-0.30); Calcium,Total 9.4 mg/dL (8.5-10.1); Chloride 106 mmol/L (98-107); Cholesterol 149 mg/dL (200); Creatinine, Serum 0.83 mg/dL (0.70-1.30); EST Glomerular Filtration Rate 97 mL/min (>60); Est Glom Filt Rate - Afr Amer 117 mL/min (>60); Globulin 3.8 g/dL (2.2-4.2); Glucose 101 mg/dL (74-106); High Density Lipoprotein 44 mg/dL; Potassium 4.1 mmol/L (3.5-5.1); Sodium Level 140 mmol/L (136-145); Triglycerides 139 mg/dL; Very Low Density Lipoprotein 28 mg/dL (5-40)
== END | disposition home or self-care (01) ==
LOC: LAB 09:05
PROVIDERS: PCP Family Medicine; Referring Provider Nurse Practitioner Family; Visit Provider Nurse Practitioner Family
DX: E78.00 Pure hypercholesterolemia, unspecified (principal)
CPT/HCPCS: 36415; 80053; 80061; 82248

== ENCOUNTER 2022-05-08 09:17 | Outpatient (RCR) | payer MEDICARE, OTHER, SELFPAY ==
[2021-11-10 13:27] VITALS: BMI 35.1
== END 2022-05-16 23:59 ==
LOC: DC 09:17
PROVIDERS: PCP Family Medicine; Referring Provider Internal Medicine Cardiovascular Disease; Visit Provider Internal Medicine Cardiovascular Disease
DX: E11.9 Type 2 diabetes mellitus without complications (principal); E78.00 Pure hypercholesterolemia, unspecified; Z68.38 Body mass index [BMI] 38.0-38.9, adult
CPT/HCPCS: 97803

== ENCOUNTER 2022-10-03 08:27 | Outpatient (RCR) | payer MEDICARE, OTHER, SELFPAY ==
[2021-11-10 13:27] VITALS: BMI 35.1
== END 2022-10-13 23:59 ==
LOC: DC 08:27
PROVIDERS: PCP Family Medicine; Referring Provider Internal Medicine Cardiovascular Disease; Visit Provider Internal Medicine Cardiovascular Disease
DX: E11.9 Type 2 diabetes mellitus without complications (principal)
CPT/HCPCS: 97803

== ENCOUNTER → 2022-12-14 | Outpatient (CLI) | payer MEDICARE, OTHER, SELFPAY ==
[2021-11-10 13:27] VITALS: BMI 35.1
--- NOTE | 2022-12-14 09:37 | ECHOCS_ITS ---
Reason For Study: CHEST PAIN Procedure This was a 2D Doppler, Color Flow transthoracic echocardiogram. The study was technically difficult. Contrast injection was performed. Exam performed in department. Left Ventricle Normal LV size. Left ventricular systolic function is normal. The estimated ejection fraction is 55 %. Stage 1 diastolic dysfunction. No regional wall motion abnormalities noted. Right Ventricle Normal RV size. Normal systolic function. Atria The left atrium is mildly enlarged. Normal right atrium. Mitral Valve Normal mitral valve. Tricuspid Valve Normal tricuspid valve. Aortic Valve Mild focal aortic valve calcification. Peak aortic valve gradient 33 mmHg. Mean aortic valve gradient 17 mmHg. Mild aortic stenosis. Pulmonic Valve Normal pulmonic valve. Great Vessels Normal aortic root. The pulmonary artery is normal size. Normal inferior vena cava. Pericardium/Pleural No pericardial effusion. Medication 22 gauge I.V. with prn adaptor inserted into right arm. Diluted definity 1.5ml given slow IV push to enhance endocardial definition. Performed a rapid injection of agitated mix of 9 cc saline and 1cc air to assess for atrial septal defect. MMode/2D Measurements & Calculations LVIDd: 5.7 cm IVSd: 0.88 cm LVOT diam: 2.0 cm LVIDs: 4.3 cm LVPWd: 1.3 cm FS: 25.1 % LVOT area: 3.0 cm2 Ao root diam: 3.7 cm LAV(MOD-bp): 68.7 ml LVAd ap4: 32.8 cm2 LAV(MOD-bp) Indexed: 31.1 ml/m2 LVLd ap4: 7.5 cm LAV(MOD-sp2): 56.7 ml EDV(MOD-sp4): 112.6 ml LAV(MOD-sp4): 84.6 ml EDV(sp4-el): 122.4 ml LVAs ap4: 20.3 cm2 LVLs ap4: 6.0 cm ESV(MOD-sp4): 55.5 ml ESV(sp4-el): 58.2 ml EF(MOD-sp4): 50.8 % EF(sp4-el): 52.4 % SV(MOD-sp4): 57.2 ml SV(sp4-el): 64.1 ml LA A4 area: 25.5 cm2 LA dimension(2D): 6.1 cm RA A4 area: 8.6 cm2 TAPSE: 0.83 cm Time Measurements MV dec time: 0.25 sec Doppler Measurements & Calculations MV E max timothy: 94.8 cm/sec Lat Peak E' Timothy: 8.2 cm/sec Med Peak E' Timothy: 5.6 cm/sec MV A max timothy: 120.0 cm/sec E/E' lat: 11.6 E/E' med: 16.8 MV E/A: 0.79 MV V2 max: 113.2 cm/sec MV dec slope: 373.9 cm/sec2 Ao V2 max: 289.0 cm/sec MV max P.1 mmHg Ao max P.8 mmHg MV V2 mean: 70.9 cm/sec Ao V2 mean: 185.1 cm/sec MV mean P.2 mmHg Ao mean P.4 mmHg MV V2 VTI: 29.3 cm Ao V2 VTI: 55.4 cm MVA(VTI): 2.1 cm2 AV (velocity ratio): 0.37 MERRITT(I,D): 1.1 cm2 MERRITT(V,D): 1.1 cm2 LV V1 max: 103.7 cm/sec SV(LVOT): 61.5 ml LV V1 max P.3 mmHg LV V1 mean P.0 mmHg LV V1 mean: 64.7 cm/sec LV V1 VTI: 20.3 cm ECHO/Echo Complete W/ Contrast Interpretation Summary Normal LV size. Left ventricular systolic function is normal. Stage 1 diastolic dysfunction. The estimated ejection fraction is 55 %. Mean aortic valve gradient 17 mmHg. Mild aortic stenosis. Compared to previous study, the left ventricular systolic function has improved .. Contrast injection was performed. Ordering Physician: Adriana Scott Referring Physician: Adriana Scott Performed By: Mony Narayanan RCS
== END | disposition home or self-care (01) ==
LOC: CVS 09:36
PROVIDERS: PCP Family Medicine; Referring Provider Nurse Practitioner Gerontology; Visit Provider Nurse Practitioner Gerontology
DX: R07.9 Chest pain, unspecified (principal)
CPT/HCPCS: 93306; Q9957; A4216; C8929

== ENCOUNTER → 2023-12-19 | Outpatient (CLI) | payer MEDICARE, OTHER, SELFPAY ==
[2021-11-10 13:27] VITALS: BMI 35.1
--- NOTE | 2023-12-19 12:59 | ECHOCS_ITS ---
Reason For Study: NONRHEUMATIC AV STENOSIS Procedure This was a 2D Doppler, Color Flow transthoracic echocardiogram. The study was technically difficult. Due to body habitus. Contrast injection was performed. Exam performed in department. Left Ventricle Normal LV size. Mild concentric left ventricular hypertrophy. Inferior and inferior septal hypokinesis. Overall left ventricular systolic ejection fraction 55%. Grade 2 diastolic dysfunction. Right Ventricle Normal right ventricle. Atria The left atrium is severely enlarged. Normal right atrium. Mitral Valve Moderate mitral annular calcification. Mild (1+) mitral valve insufficiency. Tricuspid Valve Normal tricuspid valve. Unable to estimate RV systolic pressure due to insufficient tricuspid regurgitant envelope. Aortic Valve Moderate diffuse aortic valve calcification. Moderate aortic stenosis. Pulmonic Valve The pulmonic valve is not well visualized. Great Vessels Normal sized aortic root. Pericardium/Pleural No pericardial effusion. Medication 22 gauge I.V. with prn adaptor inserted into right arm. Diluted definity 2.0ml given slow IV push to enhance endocardial definition. MMode/2D Measurements & Calculations LVIDd: 5.8 cm IVSd: 1.3 cm LVOT diam: 2.0 cm LVIDs: 4.2 cm LVPWd: 1.1 cm RVDd: 3.8 cm FS: 27.8 % LVOT area: 3.3 cm2 Ao root diam: 3.7 cm LAV(MOD-bp): 94.7 ml LVAd ap4: 30.2 cm2 LAV(MOD-bp) Indexed: 42.6 ml/m2 LVLd ap4: 7.8 cm LAV(MOD-sp2): 89.1 ml EDV(MOD-sp4): 99.5 ml LAV(MOD-sp4): 95.9 ml EDV(sp4-el): 99.7 ml LVAs ap4: 18.6 cm2 LVLs ap4: 6.7 cm ESV(MOD-sp4): 43.9 ml ESV(sp4-el): 43.8 ml EF(MOD-sp4): 55.9 % EF(sp4-el): 56.1 % SV(MOD-sp4): 55.6 ml SV(sp4-el): 55.9 ml LA A4 area: 27.1 cm2 LA dimension(2D): 6.3 cm TAPSE: 1.5 cm Time Measurements MV dec time: 0.26 sec Doppler Measurements & Calculations MV E max timothy: 87.8 cm/sec Lat Peak E' Timothy: 5.5 cm/sec Med Peak E' Timothy: 4.0 cm/sec MV A max timothy: 126.7 cm/sec E/E' lat: 16.0 E/E' med: 21.7 MV E/A: 0.69 MV V2 max: 137.7 cm/sec MV P1/2t max timothy: 111.0 cm/sec Ao V2 max: 300.0 cm/sec MV max P.6 mmHg MV P1/2t: 71.9 msec Ao max P.3 mmHg MV V2 mean: 75.2 cm/sec Ao V2 mean: 231.4 cm/sec MV mean P.6 mmHg MV dec slope: 452.2 cm/sec2 Ao mean P.1 mmHg MV V2 VTI: 31.3 cm MVA(P1/2t): 3.1 cm2 Ao V2 VTI: 65.2 cm AV (velocity ratio): 0.33 MVA(VTI): 2.2 cm2 MERRITT(I,D): 1.1 cm2 MERRITT(V,D): 1.1 cm2 LV V1 max: 102.7 cm/sec SV(LVOT): 70.1 ml PA V2 max: 86.3 cm/sec LV V1 max P.2 mmHg PA V2 mean: 58.4 cm/sec LV V1 mean P.5 mmHg LV V1 mean: 75.9 cm/sec LV V1 VTI: 21.4 cm ECHO/Echo Complete W/ Contrast Interpretation Summary Mild concentric left ventricular hypertrophy. Inferior and inferior septal hypokinesis. Overall left ventricular systolic eje ction fraction 55%. Grade 2 diastolic dysfunction. The left atrium is severely enlarged. Moderate mitral annular calcification. Mild (1+) mitral valve insufficiency. Moderate aortic stenosis. Ordering Physician: Adriana Scott Referring Physician: Erasmo Valadez Performed By: Karen Elias, JEWELS, RVT
== END | disposition home or self-care (01) ==
LOC: CVS 12:55
PROVIDERS: PCP Family Medicine; Referring Provider Nurse Practitioner Gerontology; Visit Provider Nurse Practitioner Gerontology
DX: I35.0 Nonrheumatic aortic (valve) stenosis (principal)
CPT/HCPCS: 93306; Q9957; A4216; C8929

== ENCOUNTER → 2024-01-02 | Outpatient (CLI) | payer MEDICARE, OTHER, SELFPAY ==
[2021-11-10 13:27] VITALS: BMI 35.1
--- NOTE | 2024-01-02 12:42 | STRESSREP_ITS ---
Stress Test Report Date: 01/02/2024 Procedure: Pharmacologic stress nuclear imaging study Indications: Coronary artery disease Consent: Per the patient Procedure: The patient underwent pharmacologic (Regadenoson 0.4mg ) evaluation with a peak heart rate of 105 beats per minute (71%predicted maximal heart rate) and a peak blood pressure of 148/90 mmHg. The baseline ECG demonstrated sinus rhythm. The peak pharmacologic ECG demonstrated no ischemic changes. Occasional PVCs noted postinfusion. There was no complaint of chest discomfort during pharmacologic infusion or recovery. The patient was injected with 14.1 millicuries of technetium 99m Cardiolite and subsequently rest SPECT Cardiolite nuclear imaging was obtained in the horizontal long, vertical long, and short axis views. The patient underwent pharmacologic (Regadenoson) evaluation. The patient was injected with 43.9 millicuries of technetium 99m Cardiolite and subsequently stress SPECT Cardiolite nuclear imaging was obtained in the horizontal long, vertical long, and short axis views. A gated Cardiolite study at peak stress was obtained. The examination was stopped secondary to completion of protocol. Rest and stress SPECT Cardiolite nuclear imaging status post realignment, normalization, and attenuation correction demonstrate decreased tracer uptake in the inferior wall at rest which is mildly worsened post pharmacological stress. The gated images reveal inferior hypokinesis. The reported LVEF is 59%. Impression: 1. Pharmacologic (Regadenoson) evaluation 2. Peak pharmacologic ECG with no ischemic changes. 3. Occasional PVCs noted. 5. 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 6. The gated Cardiolite study reports an LVEF of 59%. This note was generated with MangoPlateation software. It may contain incorrect words, spelling, and punctuation that were not noted in checking the note before signing.
== END | disposition home or self-care (01) ==
LOC: CVS 06:54
PROVIDERS: PCP Family Medicine; Referring Provider Nurse Practitioner Gerontology; Visit Provider Nurse Practitioner Gerontology
DX: R94.31 Abnormal electrocardiogram [ECG] [EKG] (principal); R93.89 Abnormal findings on diagnostic imaging of other specified body structures
CPT/HCPCS: 78452; 93017; A9500; A4216; J2785

== ENCOUNTER 2024-12-26 09:30 | Outpatient (RCR) | payer MEDICARE, OTHER, SELFPAY ==
[2021-11-10 13:27] VITALS: BMI 35.1
--- NOTE | 2024-11-13 11:45 | HP.PTEVAL ---
Patient's Visit Information Visit Information Visit Information: FAYE VAUGHN is a 74 year old M referred to Physical Therapy by Dr. Jose Plascencia MD with a diagnosis of RCT, prehab for 01/19 reverse TSA. Date of Evaluation: 11/13/24 Physical Therapist: Allan Willson, DPT, OCS, CSCS Visit Plan Frequency: 2-3x /Week Duration: 2 Months Plan: 3x/week for 4-8 for RC adn upper half strength progreession without increasing pain, work to I gym and home. Also ROM ER and flexion abd AA to AROM, manual therapy for pain and mobs L shoulder , ice as needed. 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 [place] stabbing pain while doing this 3 yrs ago. Putting up with it since but retired 2 yrs ago. RCR 2013, Noticed crunching and pain moreson in bed and ROM is limited. Sleep is OK right now. Limited ROM in L shoulder, cant lift it [place] and can't golf. Basic ADLs, all I. Hobbies: cook and bake and can be limitd but has avoided riding motorcycle due to unknown control. Regular ex: walking and stationary bike and TM. 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 Pain L shoulder: Pain Intensity (Out of 10): 0 Pain Intensity Range: 0 and 2 Comment: 2 with lifting and extending, OK at rest. Objective Objective: L scap depressed in posture vs R, protracted scap and forward head posture. cervical AROm WFL adn without pain, scapular depression and retraction limited B but no pain. AROM R shoulder WFL to 160 flexion and 50 er adn L1 IR AROM L shoulder 145 flexion with obvious scapular compensation and dyskinesia, unable to externally to rotate forearm away form body, IR to t10 lbow and wrist AROM WFL B. PROM L er 25, flexion to 150. strength er L 1, IR 4, flexion 3+, hard and scap comp with LLA. R side is 4/5 reflexes 2/3 bi and tri B. sensation UE WNL to gross light touch. + drop arm and + ext rotation lag on L. Balance/Special Test Scores Quick DASH Score: 4.5450 Goals Goal 1:: I appropriate HEP for ROM and strength uppr half leading to surgery Goal Time Frame: 6-8 Weeks Goal 2:: AROM 5 er L and 155 elevation without pain Goal Time Frame: 6-8 Weeks Goal 3:: pt feel prepared for rev TSA in January. Goal Time Frame: 6-8 Weeks Rehabilitation Potential Physical Therapy Diagnosis: limited ROM and strength effecting funciton.appropriate for pre surgery rom adn strength Rehabilitation Potential: Fair Anticipated Interventions Patient/Client Instruction: Educate patient on: Condition and Plan of Care For the Purpose of:: To decrease pain, To increase ROM, To improve nutrient delivery to tissue, To improve muscle performance and motor function and To increase tolerance to activity/condition/position Therapeutic Exercise to Include: Strength training, Postural training, Flexibilty training, Passive ROM and Active ROM For the Purpose of:: To decrease pain, To increase ROM, To improve nutrient delivery to tissue and To increase tolerance to activity/condition/position Manual Therapy Techniques to Include: Mobilization, Passive ROM and Soft tissue mobilization For the Purpose of:: To increase ROM and To improve nutrient delivery to tissue Cryotherapy (ice pack, ice massage): Yes For the Purpose of:: To decrease swelling/inflammation Text: Thank you for the opportunity to evaluate your patient. For Medicare and Medicare HMO plans, please review the plan of care and approve it. It will need to be FAXED BACK to us at [phone] for Medicare purposes. For Medicare only, by signing this I certify the plan of care. Please let me know if there are questions or concerns regarding this plan of care. Physician Signature: Date:
--- NOTE | 2024-12-26 09:46 | HP.PTDCSUM ---
Discharge Summary D/C summary: It has been my pleasure to treat FAYE VAUGHN referred by Dr. Jose Plascencia MD, with the diagnosis of RCT, prehab for 01/19 reverse TSA for a total of 14 visit(s). Discharge Date: 12/26/24 Please see the following information for a summary of their discharge status. Subjective Subjective: Doing exercises at home. Overhead ex with function was painful in forearm at first but got better. Pain is minimal. Times it hurts in am if sleeps on it wrong. 09/23 at times if he lifts somethings. Sleep is OK. HEP : ready for TSA, will continue. Pain L shoulder: Pain Intensity (Out of 10): 0 Overall Improvement % Improvement: 50 Objective Objective/Function: 150 AROM fleexion L arm, Nil er, IR comfortable to L4. strength er Nil, IR 4, bi and tri 4+, flexion 4- L and compensates with scap elevation with flexion adn abduction. Good scap mobility. Goals Goal 1:: I appropriate HEP for ROM and strength uppr half leading to surgery Goal Progress: Goal Met Goal 2:: AROM 5 er L and 155 elevation without pain Goal Progress: flexion yes, er no Goal 3:: pt feel prepared for rev TSA in January. Goal Progress: Goal Met Plan Plan: d/c, pt to continue via HEP until surgery. D/C Information Discharge Comments: F/u post surgically when ordered. d/c sentence: If there are questions or concerns regarding this patient's physical therapy, please feel free to call me at [phone]. Thank you for the referral of this patient. Sincerely, Allan Willson, DPT, OCS, CSCS Balance/Gait/Functional tests Balance/Special Test Scores Quick DASH Score: 27.2725 Improvement % Improvement: 50
== END 2024-12-26 13:55 | disposition home or self-care (01) ==
LOC: PT 09:30
PROVIDERS: PCP Family Medicine; Visit Provider Orthopaedic Surgery
DX: M12.812 Other specific arthropathies, not elsewhere classified, left shoulder (principal)
CPT/HCPCS: 97110; 97161; 97164

== ENCOUNTER 2024-12-29 14:17 | Inpatient (IN) | payer MEDICARE, OTHER, SELFPAY ==
[2021-11-10 13:27] VITALS: BMI 35.1
[2024-12-29] VITALS (9 sets, daily range): BP systolic 98–146; BP diastolic 72–85; PULSE 77–91; RESP 14–25; TEMP 36.4–36.8; O2SAT 95–100; BMI 34.4; BMI 34.2
--- NOTE | 2024-12-29 14:22 | EKG12_ITS ---
Test Reason : SYNC Blood Pressure : */* mmHG Vent. Rate : 87 BPM Atrial Rate : 87 BPM P-R Int : 180 ms QRS Dur : 94 ms QT Int : 382 ms P-R-T Axes : 24 17 91 degrees QTcB Int : 459 ms Normal sinus rhythm Possible Left atrial enlargement Minimal voltage criteria for LVH, may be normal variant ( R in aVL ) Inferior infarct , age undetermined Cannot rule out Anteroseptal infarct , age undetermined Abnormal ECG Cannot rule out inferior wall KS Confirmed by Phoenix Raza ([id number]), editor sound [employer] ([id number]) on 12/30/2024 11:59:22 AM Referred By: Confirmed By: Phoenix Raza
--- NOTE | 2024-12-29 14:25 | CT_ITS ---
PROCEDURE: SPINE CERVICAL WITHOUT CONTRAS 12/29/2024 REASON FOR EXAM: FALL, SYNCOPE TECHNIQUE: Procedure Code: CTSPC Modality: CT Procedure: SPINE CERVICAL WITHOUT CONTRAS Coronal and Sagittal reconstruction series were provided. One or more dose reduction techniques were used (e.g., Automated exposure control, adjustment of the mA and/or kV according to patient size, use of iterative reconstruction technique. RADIATION DOSE SUMMARY: CTDlvol: 25.72 mGy DLP: 1460.31 mGycm COMPARISON: None. FINDINGS: Alignment: Normal alignment. Vertebrae: No acute bony abnormalities. Soft Tissues: No soft tissue abnormalities. Disc levels: Multilevel degenerate changes at C4-C5, C5-C6 of disc space narrowing, uncovertebral hypertrophy, severe bilateral foramina stenosis and moderate canal stenosis. Right C2-C3 and C3-C4 facet joint arthropathy with corresponding moderate canal stenoses. CT/Spine Cervical without Contras IMPRESSION: No acute injury to the cervical spine. Reading Location: [id number]
--- NOTE | 2024-12-29 14:25 | CT_ITS ---
PROCEDURE: BRAIN/HEAD WITHOUT CONTRAST 12/29/2024 REASON FOR EXAM: FALL, SYNCOPE TECHNIQUE: Procedure Code: CTBR Modality: CT Procedure: BRAIN/HEAD WITHOUT CONTRAST Coronal and Sagittal reconstruction series were provided. One or more dose reduction techniques were used (e.g., Automated exposure control, adjustment of the mA and/or kV according to patient size, use of iterative reconstruction technique. RADIATION DOSE SUMMARY: CTDlvol: 44.99 mGy DLP: 729 mGycm COMPARISON: None FINDINGS: Brain: Low density in the periventricular white matter suggests mild chronic small vessel ischemic changes. CSF Spaces: Mild generalized cerebral atrophy Sinuses/Mastoids: Clear at visualized levels Bones: Unremarkable CT/Brain/Head without Contrast IMPRESSION: CHRONIC CHANGES. NO ACUTE FINDINGS. Reading Location: [place] [id number]
[2024-12-29 14:48] LABS: Hematocrit 41.0 % (40-54); Hemoglobin 13.7 g/dL (13.0-16.5); Immature Granulocytes Count 0.030 X10^3/uL (0.0-0.0); Mean Corp Hgb Conc 33.4 g/dL (32-36); Mean Corpuscular Volume 88.4 fL (80-94); Mean Platelet Vol. 9.9 fl (6.2-12.0); NRBC Flagged by Analyzer 0 % (0-5); Platelet Count 189 K/mm3 (150-450); RBC Distribution Width CV 12.7 % (11.6-14.6); RBC Distribution Width SD 41.1 fl (35.1-43.9); Red Blood Count 4.64 M/mm3 (4.6-6.2); White Blood Count 8.4 K/mm3 (4.4-11.0)
--- NOTE | 2024-12-29 14:52 | EX.ED.DYSGE1 ---
HPI History of Present Illness Chief Complaint: Syncope Narrative Narrative: Patient is a 74-year-old male presenting to the emergency department for presyncopal events. Patient has a past medical history of CAD, CABG done 3 years ago at [facility]. He also has a PMHX of HLD, HTN, aortic valve stenosis, obesity. Patient states he had an appointment scheduled with [facility] today at 2:30 PM. Patient states that this morning while he was in the shower he got lightheaded and then syncopized. States that he crumpled to the ground. Denies hitting his head, neck pain or back pain. He was able to get up by himself. He denies any chest pain, shortness of breath, palpitations. States that then he was drying his hair and syncopized again this time without any lightheadedness prior to the syncopal event. States he then called EMS when he regained consciousness. When they were moving him over to the cot he again lost consciousness. He is unsure how long he was unconscious during the 3 episodes. States he feels baseline now. He denies any lightheadedness, dizziness, headache, focal weakness or numbness, speech difficulty, vision changes. Denies neck pain, back pain, hip pain. He was able to walk after the events. He is not on any oral anticoagulation. No new medications. [facility] Medical History (Updated 12/29/24 @ 18:06 by Ligia Cabrera) Cataract Avulsion of skin of toe Facial cellulitis Acute kidney injury Elevated blood pressure reading Obesity (BMI 30-39.9) Diabetes History of left heart catheterization (LHC) (~06/02/21) Atherosclerotic heart disease of [place] coronary artery without angina pectoris HLD (hyperlipidemia) Aortic valve disorder Cardiomyopathy Angina pectoris Nonspecific ST-T wave electrocardiographic changes Chest pain Acute UTI Intractable pain Orchitis Acute epididymitis Orchitis and epididymitis Tendinitis of extensor tendon of right hand High cholesterol History of prostate cancer History of skin cancer Home Medications ?Medication ?Instructions ?Recorded ?Last Taken ?Type aspirin 81 mg tablet,delayed 81 mg PO DAILY 06/13/21 12/29/24 History release (Adult Low Dose Aspirin) folic acid 1 mg tablet 1 mg PO DAILY 06/13/21 12/29/24 History acetaminophen 500 mg tablet 1,000 mg PO BID PRN Pain 11/14/22 12/29/24 History tirzepatide 15 mg/0.5 mL 15 mg (0.5 mL) subcut QWEEK #2 mL 03/29/23 12/28/24 Rx subcutaneous pen injector (Elsa) atorvastatin 40 mg tablet 40 mg PO DAILY cholesterol #90 tabs 04/30/23 12/28/24 Rx metoprolol tartrate 50 mg tablet 50 mg PO BID #180 tabs 04/30/23 12/29/24 Rx lisinopril 10 mg tablet 10 mg PO DAILY #90 tabs 06/05/24 12/29/24 Rx blood sugar diagnostic (FreeStyle 12/29/24 Unknown History Lite Strips) lancets 28 gauge (FreeStyle 12/29/24 Unknown History Lancets) metformin 500 mg tablet,extended 500 mg PO BID 12/29/24 12/29/24 History release 24 hr Allergy/AdvReac Type Severity Reaction Status Date / Time cephalexin AdvReac Pain in Verified 12/29/24 14:25 joints Family History Other Cancer Diabetes Surgical History (Updated 12/29/24 @ 18:06 by Ligia Cabrera) H/O rotator cuff surgery History of coronary artery bypass surgery (~06/08/21) H/O prostatectomy Social History household members: none housing: apartment Smoking Status: Former smoker ROS ROS ED ROS Narrative see HPI EXAM Physical Exam Narrative Exam Narrative: Vital signs: Reviewed General: Alert and oriented x 3. No acute distress HEENT: Head is normocephalic and atraumatic, sinuses nontender, pupils equal round and reactive. Nares are patent. Oropharynx and throat exams normal. Neck: Supple without lymphadenopathy nontender. No midline cervical spinal tenderness to palpation. No step-offs or deformities. Cardiovascular: Regular rate and rhythm. Murmur noted. No rubs or gallops. Normal S1 and S2 Respiratory: Clear to auscultation bilaterally. No wheezes, rales, rhonchi Abdominal: Soft and nontender. Normal bowel sounds. No guarding or rebound. Nonsurgical abdomen Extremities: No midline thoracic or lumbar spinal tenderness to palpation. No step-offs or deformities. Hips are stable and nontender to palpation. Extremities are atraumatic and nontender to palpation with normal active range of motion. The rest of the physical exam is unremarkable Const Vital Signs: 12/29/24 14:19 12/29/24 14:26 12/29/24 15:33 Temperature 97.5 F L Temperature Source Axillary Pulse Rate 87 83 Respiratory Rate 24 H 14 Respiratory Effort Normal Non-Labored Respiratory Pattern Normal Blood Pressure 146/85 H 113/72 Blood Pressure Mean 105 85 Pulse Ox 98 99 Oxygen Delivery Method Room Air 12/29/24 15:45 12/29/24 16:00 Temperature Temperature Source Pulse Rate 82 84 Respiratory Rate 25 H 21 H Respiratory Effort Respiratory Pattern Blood Pressure Blood Pressure Mean Pulse Ox 95 97 Oxygen Delivery Method NIHSS NIHSS Initial: 1a Level of Consciousness: 0 1b LOC Questions (Score 2 if aphasic/stupor): 0 1c LOC Commands (Only score 1st attempt): 0 2 Best Gaze (If aphasic, use reflexive mvmts.): 0 3 Visual: 0 4 Facial Palsy: 0 5 Motor Arm Right (UN = amputation/fusion): 0 5 Motor Arm Left: 0 6 Motor Leg Right: 0 6 Motor Leg Left: 0 7 Limb ataxia (Only + if out of proportion): 0 8 Sensory (Aphasia/stupor=0 or 1, coma=2): 0 9 Best Language: 0 10 Dysarthria (mute, coma=2, intubated=UN): 0 11 Extinction and Inattention (only scored if +): 0 Total Score: 0 MDM MDM MDM Narrative Medical decision making narrative: Patient is a 74-year-old male presenting to the emergency department for 3 syncopal events. Patient was seen and examined. Vitals are stable. Patient resting bed comfortably no acute distress. Differential includes but is not limited to: ACS, cardiac dysrhythmia, intracranial bleed, electrolyte abnormality, PE EKG shows normal sinus rhythm with LVH. There is some ST depression in leads I and aVL. There is no ST elevation. There is no dysrhythmia noted. DE interval of 180. Appears similar to prior EKGs. CBC with no leukocytosis and a normal hemoglobin. BMP with BUN of 21, glucose of 112 otherwise no significant abnormalities. TSH and magnesium within normal limits. Troponin initially of 58, reflex is a [address] the brain shows no acute findings. Chronic changes are noted and can be seen in the radiology report. CT cervical spine with no acute injury to the cervical spine. Chest x-ray were reviewed by myself. There is evidence of cardiomegaly, otherwise no widened mediastinum, no significant opacities no pneumothorax. Radiology read with evidence of mild cardiac enlargement. Patient has no tachycardia, no shortness of breath, no chest pain, no hypoxia, I do not think the syncope is caused by a pulmonary embolism. Given his history of aortic stenosis and no prodromal symptoms the latter 2 times that he syncopized I do think this is likely cardiac in nature. Spoke to jewelry technician on-call for the [place] [facility] [facility], Dr. Raza, who recommended admission for telemetry and recommended echo while he is admitted here. Discussed admission with the patient he is agreeable. Patient admitted to hospitalist, Dr. Hull for further management. Clinical impression syncopal episodes elevated troponin History & Record Review Discussion w/independent historian: Patient Lab Data Attestation: I reviewed the patient's lab results. Labs: Laboratory Results - last 24 hr 12/29/24 14:31 WBC 8.4 RBC 4.64 Hgb 13.7 Hct 41.0 MCV 88.4 MCH 29.5 MCHC 33.4 RDW Std Deviation 41.1 RDW Coeff of Khoa 12.7 Plt Count 189 MPV 9.9 Immature Gran % (Auto) 0.400 Neut % (Auto) 86.0 H Lymph % (Auto) 7.8 L Stokes % (Auto) 4.8 Eos % (Auto) 0.6 Baso % (Auto) 0.4 Absolute Neuts (auto) 7.2 Absolute Lymphs (auto) 0.66 L Nucleated RBC % 0 PT 13.7 INR 1.0 APTT 26.1 Sodium 141 Potassium 4.3 Chloride 106 Carbon Dioxide 20.8 L Anion Gap 14 BUN 21 H Creatinine 0.84 Estim Creat Clear Calc 92.56 Est GFR (MDRD) Non-Af 92 BUN/Creatinine Ratio 25.1 H Glucose 112 H Calcium 9.3 Magnesium 2.0 Troponin T High Sens 58 H* TSH 1.490 Radiography Chest X-Ray - ED: 2 View, Read by ED Physician, Cardiomegaly and No Infiltrates Diagnostic Testing: Clinical Impression(s) from Imaging Studies Brain CT 12/29/24 14:25 IMPRESSION: CHRONIC CHANGES. NO ACUTE FINDINGS. Reading Location: [facility] 12/29/24 14:25 IMPRESSION: No acute injury to the cervical spine. Reading Location: [facility] Chest X-Ray 12/29/24 14:55 IMPRESSION: Mild cardiac enlargement. Reading Location: [facility] Discharge Plan Disposition Disposition: Acute Care Hospital [facility] Discharge Date/Time: 12/29/24 16:58
[2024-12-29 14:53] LABS: Prothrombin Time (Protime)PT. 13.7 SECONDS (11.7-14.9)
[2024-12-29 14:54] LABS: Partial Thromboplast Time 26.1 Seconds (24.1-36.2)
--- NOTE | 2024-12-29 14:55 | RAD_ITS ---
PROCEDURE: CHEST PA AND LATERAL 12/29/2024 REASON FOR EXAM: CHEST PAIN TECHNIQUE: Procedure Code: RADCXR Modality: DX Procedure: CHEST PA AND LATERAL COMPARISON: May 31, 2021 FINDINGS: Hardware: Prior median sternotomy. EKG leads. Heart: Enlarged. Mediastinum: Atherosclerotic aorta. Lungs: Clear. No pneumothorax or pleural effusion. Bones: Degenerative changes are identified within the thoracic spine. RAD/Chest PA and Lateral IMPRESSION: Mild cardiac enlargement. Reading Location: [id number]
[2024-12-29 15:18] LABS: Magnesium 2.0 mg/dL (1.5-2.2)
[2024-12-29 15:20] LABS: Anion Gap 14 (5-15); BUN 21 mg/dL (4-19); BUN/Creat Ratio 25.1 RATIO (10-20); Calcium,Total 9.3 mg/dL (7.6-11.0); Carbon Dioxide 20.8 mmol/L (21.0-32.0); Chloride 106 mmol/L (98-108); Estimated Creatinine Clearance 92.56 ml/min (50-250); Glucose 112 mg/dL (70-99); Potassium 4.3 mmol/L (3.3-5.1); Troponin T High Sensitivity 58 ng/L (<=22)
--- NOTE | 2024-12-29 16:18 | CASEMGMT ---
Care Management Face to Face with patient for initial transition planning/care coordination assessment in the ED. This underwriter mortgage loan introduced self and role at [facility]. Patient alert and oriented. Patient willing to participate in assessment and is able to answer all questions appropriately. Care providers, pharmacy, and demographics verified. Admitting Diagnosis: Syncope Other diagnosis history: CAD, CABG done 3 years ago at [facility], HLD, HTN, aortic valve stenosis PCP: [facility] Specialists: [facility]. العراقي, urology through [facility]. Preferred Pharmacy: [facility] Insurance: Medicare A B (primary). AARP (secondary). Prescription Benefit: yes Living Will/HPOA: daughter is listed, but unable to bring in until after admission; patient states intent to do so. LNOK: daughter, Lexi. Son, Allan. Living Arrangements: lives alone in an apartment, but flight of stairs needed to get there. Independent with all ADLs/IADLs. Transportation: patient drives DME: none HHC: none SNF/Rehab: none Community Resources: none Patient goals: Patient wishes to discharge home, denies need for home health care at this time. Patient denies any further needs or concerns at this time. Of note, patient does have a shoulder replacement scheduled for 01/19/25 and states having right knee replacement coming after that (not scheduled as of this time). Disposition Plan: admission to acute; RN CM/SW to follow for discharge planning needs that may arise. Katerin Holley, MANAGER MECHANICAL, TOP FLAVOR ATTENDANT
--- NOTE | 2024-12-29 16:22 | HP.PCM.HOS_ITS ---
[facility] - General General Date of Admission: 12/29/24 Date of Service: 12/29/24 Chief Complaint: 30 syncopal episodes [facility] Narrative FAYE VAUGHN, is a 74-year-old male with a history of coronary artery disease with CABG 3 years ago at [facility], aortic valve stenosis, diabetes, hypertension who presented to [facility] ED 12/29/2024 for syncope. Reportedly had an appointment with [facility] today at 230 but this morning when he was in the shower he got lightheaded and had a syncopal episode but did not hit his head. He was able to get up on his own but when he was then drying his hair he had another syncopal episode without any lightheadedness prior to event. When he woke up he called EMS but when he was moving over to cot he again lost consciousness. In the ED he is back at baseline. Denied any chest pain or shortness of breath. In the ED temp 97.5, heart rate of 87, blood pressure 146/85, respiratory 24 pulse ox 98% on room air. CBC with white count 8.4 and hemoglobin 13.7, BMP BUN of 21 creatinine 0.4 with a glucose of 112. Troponin of 58. TSH 1.[address] head with chronic changes, CT cervical spine with no acute process, chest x-ray with mild cardiac enlargement. ED physician discussed with [facility] physician on-call who recommended admission for telemetry monitoring and echo. Hospitalist contacted admission. Patient evaluated at bedside. He reports history as above with for syncopal episode in the shower preceded by lightheadedness and the following 2 episodes without any preceding symptoms. Notes that he used his Apple Watch after for syncopal episode and his heart rate was 80s to 90s which is elevated for him, after the second his heart rate was 45-50 range. Denies any chest pain or shortness of breath, presently back to baseline with no new or acute complaints. Denies any history of syncopal episodes prior to today. Denies any shortness of breath on exertion or chest pain. [facility] Medical History Avulsion of skin of toe Facial cellulitis Acute kidney injury Elevated blood pressure reading Obesity (BMI 30-39.9) Diabetes History of left heart catheterization (LHC) (~06/02/21) Atherosclerotic heart disease of [place] coronary artery without angina pectoris HLD (hyperlipidemia) Aortic valve disorder Cardiomyopathy Angina pectoris Nonspecific ST-T wave electrocardiographic changes Chest pain Acute UTI Intractable pain Orchitis Acute epididymitis Orchitis and epididymitis Tendinitis of extensor tendon of right hand High cholesterol History of prostate cancer History of skin cancer Home Medications ?Medication ?Instructions ?Recorded ?Last Taken ?Type aspirin 81 mg tablet,delayed 81 mg PO DAILY 06/13/21 0 12/29/24 History release (Adult Low Dose Aspirin) folic acid 1 mg tablet 1 mg PO DAILY 06/13/2112/29 History acetaminophen 500 mg tablet 1,000 mg PO BID PRN Pain 0 11/14/22 12/29/24 History tirzepatide 15 mg/0.5 mL 15 mg (0.5 mL) subcut QWEEK #2 mL 03/29/23 12/28/24 Rx subcutaneous pen injector (Mararo) atorvastatin 40 mg tablet 40 mg PO DAILY cholesterol # 90 tabs 04/30/23 12/28/24 Rx metoprolol tartrate 50 mg tablet 50 mg PO BID #180 tab s 04/30/23 12/29/24 Rx lisinopril 10 mg tablet 10 mg PO DAILY #90 tabs 05/1812/29/24 [facility] 12[facility]/24 Unknown Hi story Lite Strips) lancets 28 gauge (Freeyle 12/29/24 Unknown History Lancets) metformin 500 mg tablet,extended 500 mg PO BID 5 12/29/24 History release 24 hr Allergy/AdvReac Type Severity Reaction Status Date / Time cephalexin AdvReac Pain in Verified 12/29/24 14:25 joints Family History Other Cancer Diabetes Surgical History History of coronary artery bypass surgery (~06/08/21) H/O prostatectomy Social History household members: none housing: apartment Smoking Status: Former smoker ROS ROS Narrative General: Denies fever/chills HENT: Denies headache, denies stuffy nose, denies sore throat EYES: Denies changes in vision Resp: Denies cough, denies shortness of breath Cardiac: Denies chest pain GI: Denies abdominal pain, denies changes in bowel, denies nausea/vomiting : Denies changes in urination Extremity: Denies swelling MSK: Denies weakness Neuro: Denies any numbness/tingling, syncopal episodes x 3 Heme: Denies any bleeding or bruising Skin: Denies rashes Psychiatric: No complaints voiced Vital Signs Vital Signs Vital Signs: 12/29/24 14:19 12/29/24 14:26 12/29/24 15:33 Temperature 97.5 F L Temperature Source Axillary Pulse Rate 87 83 Respiratory Rate 24 H 14 Respiratory Effort Normal Non-Labored Respiratory Pattern Normal Blood Pressure 146/85 H 113/72 Blood Pressure Mean 105 85 Pulse Ox 98 99 Oxygen Delivery Method Room Air 12/29/24 15:45 12/29/24 16:00 Temperature Temperature Source Pulse Rate 82 84 Respiratory Rate 25 H 21 H Respiratory Effort Respiratory Pattern Blood Pressure Blood Pressure Mean Pulse Ox 95 97 Oxygen Delivery Method Weight Weight: 106 kg Body Mass Index (BMI) 34.4 Physical Exam Narrative General: Alert, oriented, no apparent distress HEENT: Atraumatic, normocephalic Eyes: Anicteric, normal conjunctiva, extraocular movements grossly intact Neck: Supple Respiratory: Clear to auscultation bilaterally, normal respiratory effort Cardiovascular: Regular rate and rhythm, does have systolic ejection murmur at upper sternal borders GI: Soft, nontender, nondistended Extremities: No edema Musculoskeletal: Moving all extremities Neuro: No overt focal neurological deficits Skin: No rashes appreciated Psych: Cooperative Results Lab / Micro Data 12/29/24 14:31 12/29/24 14:31 Labs: Laboratory Results - last 24 hr 12/29/24 14:31: WBC 8.4, RBC 4.64, Hgb 13.7, Hct 41.0, MCV 88.4, MCH 29.5, MCHC 33.4, RDW Std Deviation 41.1, RDW Coeff of Khoa 12.7, Plt Count 189, MPV 9.9, Immature Gran % (Auto) 0.400, Neut % (Auto) 86.0 H, Lymph % (Auto) 7.8 L, Forest % (Auto) 4.8, Eos % (Auto) 0.6, Baso % (Auto) 0.4, Absolute Neuts (auto) 7.2, A bsolute Lymphs (auto) 0.66 L, Nucleated RBC % 0, PT 13.7, INR 1.0, APTT 26.1, Sodium 141, Potassium 4.3, Chloride 106, Carbon Dioxide 20.8 L, Anion Gap 14, B UN 21 H, Creatinine 0.84, Estim Creat Clear Calc 92.56, Est GFR (MDRD) Non-Af 92, BUN/Creatinine Ratio 25.1 H, Glucose 112 H, Calcium 9.3, Magnesium 2.0, T roponin T High Sens 58 H*, TSH 1.490 Imaging Radiology Impression Brain CT 12/29/24 14:25 IMPRESSION: CHRONIC CHANGES. NO ACUTE FINDINGS. [facility] [address] 12/29/24 14:25 IMPRESSION: No acute injury to the cervical spine. Reading Location: [facility] Chest X-Ray 12/29/24 14:55 IMPRESSION: Mild cardiac enlargement. Reading Location: [facility] Assessment & Plan Assessment/Plan (1) Syncope: PLAN: Plan # Multiple syncopal episodes -Patient had 3 syncopal episodes in a short period of time 2 of which had no prodromal symptoms -Concerning for cardiac syncope -CT head no acute process -EKG normal sinus rhythm with some possible ST depressions in lead I and aVL with no ST elevation or dysrhythmia -Cardiology recommended admission for telemetry and echocardiogram -Monitor on telemetry -Obtain echocardiogram -Orthostats ordered as well but less likely culprit -Will check TSH # Elevated troponin -First troponin of 58 -Patient had syncopal episode, no chest pain or shortness of breath -Unclear significance but does lend area of cardiac syncope -Trend troponins #Hx of CAD -w/ previous CABG 3 years ago at [facility] -Continue home statin, aspirin, beta-babs #Type 2 diabetes mellitus -Glucose checks and sliding scale insulin - Hold home oral hypoglycemics #Hypertension - Blood pressure most recently 98 - Will decrease metoprolol on hold lisinopril for now #DVT ppx: SCDs Hailee Hull MD Charges/Coding Visit Charges Inpatient E&M: 16091 Init Hosp L2
--- NOTE | 2024-12-29 16:40 | ECHOCS_ITS ---
Reason For Study Reason For Study: Syncope Procedure This was a 2D Doppler, Color Flow transthoracic echocardiogram. The study was technically difficult. Contrast injection was performed. Exam performed portable in patient room. Left Ventricle Normal LV size. Mild concentric left ventricular hypertrophy. Inferior and posterior hypokinesis. Overall LVEF estimated at 50%. Stage I diastolic dysfunction. Right Ventricle Normal right ventricle. Atria The left atrium is severely enlarged. Normal right atrium. Mitral Valve Severe mitral valve annular calcification. Mild mitral valve regurgitation. Tricuspid Valve Trivial tricuspid valve insufficiency. Unable to estimate RV systolic pressure due to insufficient tricuspid regurgitant envelope. Aortic Valve Mild aortic valve calcification. Moderate aortic valve stenosis with mean peak gradient 23 mmHg. Mild aortic valve regurgitation. Pulmonic Valve The pulmonic valve is not well visualized. Great Vessels Mildly dilated aortic root. Pericardium/Pleural No pericardial effusion. Medication Diluted definity 3ml given slow IV push to enhance endocardial definition. MMode/2D Measurements & Calculations LVIDd: 5.6 cm IVSd: 1.3 cm LVOT diam: 2.2 cm LVIDs: 3.4 cm LVPWd: 1.2 cm FS: 39.0 % LVOT area: 3.8 cm2 Ao root diam: 4.2 cm LAV(MOD-bp): 81.1 ml LVAd ap4: 33.0 cm2 LAV(MOD-bp) Indexed: 36.9 ml/m2 LVLd ap4: 7.3 cm LAV(MOD-sp2): 75.3 ml EDV(MOD-sp4): 119.7 ml LAV(MOD-sp4): 84.1 ml EDV(sp4-el): 126.0 ml LVAs ap4: 20.8 cm2 LVLs ap4: 6.1 cm ESV(MOD-sp4): 59.2 ml ESV(sp4-el): 59.7 ml EF(MOD-sp4): 50.6 % EF(sp4-el): 52.6 % SV(MOD-sp4): 60.6 ml SV(sp4-el): 66.3 ml Ao sinus diam: 3.1 cm SI(MOD-sp4): 27.6 ml/m2 Ao ST Junction: 2.4 cm LA A4 area: 25.3 cm2 LA dimension(2D): 6.2 cm Time Measurements MV dec time: 0.32 sec Doppler Measurements & Calculations MV E max timothy: 81.8 cm/sec Lat Peak E' Timothy: 8.3 cm/sec Med Peak E' Timothy: 3.4 cm/sec MV A max timothy: 139.5 cm/sec E/E' lat: 9.9 E/E' med: 23.9 MV E/A: 0.59 MV V2 max: 172.6 cm/sec MV P1/2t max timothy: 101.8 cm/sec Ao V2 max: 311.1 cm/sec MV max P.9 mmHg MV P1/2t: 107.2 msec Ao max P.7 mmHg MV V2 mean: 85.1 cm/sec MV dec slope: 278.2 cm/sec2 Ao V2 mean: 231.4 cm/sec MV mean P.6 mmHg MVA(P1/2t): 2.1 cm2 Ao mean P.7 mmHg MV V2 VTI: 36.9 cm Ao V2 VTI: 70.6 cm MVA(VTI): 2.3 cm2 AV (velocity ratio): 0.32 MERRITT(I,D): 1.2 cm2 MERRITT(V,D): 1.2 cm2 AI max timothy: 468.1 cm/sec LV V1 max: 96.3 cm/sec SV(LVOT): 84.8 ml AI max P.6 mmHg LV V1 max P.7 mmHg LV V1 mean P.2 mmHg AI dec slope: 261.0 cm/sec2 LV V1 mean: 70.3 cm/sec AI P1/2t: 525.2 msec LV V1 VTI: 22.5 cm PA V2 max: 97.2 cm/sec ECHO/Echo Complete W/ Contrast Interpretation Summary The study was technically difficult. Mild concentric left ventricular hypertrophy. Inferior and posterior hypokinesis. Overall LVEF estimated at 50%. Stage I jasmine tolic dysfunction. The left atrium is severely enlarged. Severe mitral valve annular calcification. Mild mitral valve regurgitation. Mild aortic valve calcification. Moderate aortic valve stenosis with mean peak gradient 23 mmHg. Mild aortic valve regurgitation. Mildly dilated aortic root. Ordering Physician: Hailee Hull Performed By: Sundar Mckeon RCS
--- NOTE | 2024-12-29 17:03 | CON.PCM.CA_ITS ---
Assessment & Plan Assessment/Plan (1) Syncope: QUALIFIERS: Syncope type: unspecified Qualified Code(s): R55 - Syncope and collapse PLAN: Patient's syncope certainly sounds arrhythmia genic. The first episode occurred when he was in the shower. Second episode occurred when he was drying his hair and had his wearable own. That showed a heart rate of 40 bpm. The patient really had no prodrome he just slumped against the wall and slid down to the floor. He slid down in the shower the first time. The third time it occurred was when he was in the EMS truck slipping over onto the gurney and went out. Unfortunately was not hooked up to the ECG. The patient does carry history of aortic stenosis it was moderate with a mean gradient of 23 mmHg and a normal ejection fraction of 55% with an old inferior wall infarct. His left atrium is severely enlarged. The patient has a substrate for VT and paroxysmal atrial fibs and in the setting of moderate to progressive aortic stenosis could be the etiology of his syncope. He does not have symptoms of severe aortic stenosis as far as exercise intolerance. He does not appear to be very active however. Recommend telemetry monitoring for 48 hours and full echocardiogram to compare to the one a year ago. Will continue the current medical regiment including his lisinopril and metoprolol and monitor his response. (2) Hypertension: QUALIFIERS: Hypertension type: primary hypertension Qualified Code(s): I10 - Essential (primary) hypertension PLAN: Patient is on a combination metoprolol and lisinopril blood pressure is on the low side since hospitalization. We will monitor this closely. (3) Aortic valve stenosis: QUALIFIERS: Cardiac valve disease etiology: nonrheumatic Q ualified Code(s): I35.0 - Nonrheumatic aortic (valve) stenosis PLAN: Patient's mean gradient was 23 mmHg peak gradient 36 mmHg on echocardiogram with an ejection fraction of 55% December 2023. His murmur has a quality of significant aortic stenosis radiating up into his neck. Will reevaluate with echocardiogram. (4) Coronary artery disease: QUALIFIERS: Coronary Disease-Associated Artery/Lesion type: mus[place]ogee artery [place] vs. transplanted heart: mus[place]ogee heart Associated angina: without angina Qualified Code(s): I25.10 - Atherosclerotic heart disease of mus[place]ogee coronary artery without angina pectoris PLAN: Patient status post bypass graft surgery May 2021 receiving a CUI to the LAD of vein graft to the PDA of the right coronary artery and sequential vein graft to the ramus and OM branch of the circumflex. Patient's ejection fraction is noted to be 55% on echocardiogram December 2023. He does have inferior wall motion abnormalities consistent with an old inferior wall infarct. The patient denies any chest pain and dyspnea on exertion which was his original complaint when he presented and was found to have severe triple-vessel disease. (5) Diabetes: QUALIFIERS: Diabetes mellitus type: type 2 Diabetes mellitus chcf insulin use: without long term care pharmacist use Diabetes mellitus complication status: with hyperglycemia Qualified Code(s): E11.65 - Type 2 diabetes mellitus with hyperglycemia PLAN: Patient's diabetes is managed through the primary service he is on metformin and tirzepatide. He did check his blood sugar this morning after the first event in the shower and it was 140. This is higher than normal for him in the morning. (6) Dyslipidemia: PLAN: Patient's lipids will be evaluated. His target LDL cholesterol should be less then 70 and his triglycerides less than 200. Currently the patient is on atorvastatin 40 mg daily. PLAN: Plan 1. Admit to telemetry for monitoring for 48 hours. 2. 2D echocardiogram to reevaluate LV function and aortic valve disease. 3. Trend troponins. 4. Further recommendations pending the outcome of the monitoring and echocardiogram. 5. The symptoms definitely sound arrhythmia genic in nature. The patient should not be driving until we can definitively evaluate and figure out the etiology. HPI Consult Data Date of Consult: 12/29/24 HPI Narrative Reason for Consultation: Syncope HPI Narrative: FAYE VAUGHN, is a 74 M who presents with 3 episodes of syncope occurring this morning. The first episode occurred when he was in the shower and he passed out scraping his buttocks on the spigot. Otherwise he did not get hurt came to on his own and got out of the shower checked his glucose which was 140. He put on his wearable and checked his heart rate which was in the 80s. He did not obviously have it on when he was in the shower. The patient then proceeded to dry his hair and fell against the sidewall down to the floor and passed out for a second time. His wearable showed that his heart rate was 40 as he came to. He then called our office and was instructed to call EMS who came to his house/apartment to pick him up. He met them out in the parking lot climbed into the back of the rig and is able to scoot him over onto the gurney he passed out again. He was out for just a short period of time he was not hooked up to ECG at the time. He was then transported to [facility] where he was evaluated. ECG in the hospital shows normal sinus rhythm his telemetry has shown normal sinus rhythm since his admission to the ED. He denies any recurrence of the symptoms since he has been here. The patient's ECG shows an old inferior wall infarct with minor nonspecific ST-T wave changes and is really unchanged from the description and an old reading. Troponin was 58 trending is pending. The patient denies any chest pain or shortness of breath. He does carry history of known coronary disease status post bypass graft surgery in 2021 at [facility]. He received a CUI to the LAD a vein graft to the PDA of the right coronary and a sequential vein graft to the ramus branch and OM1 branch of the circumflex. He believes this was done by Dr. Rosalina Simmons. In December 2023 the patient had a stress test which was a nuclear stress test showing an inferior wall defect consistent with an old inferior wall myocardial infarction. An echocardiogram done in December 2023 showed an EF of 55% with inferior hypokinesis consistent with an old inferior wall infarct. He had severe left atrial enlargement and a moderate aortic stenosis with a peak gradient of 36 mean gradient of 23. He has never passed out prior to this he denies having any arrhythmias denies any history of paroxysmal atrial fibrillation. Patient denies any dyspnea on exertion or chest discomfort or shortness of breath at rest like he had when he presented with his original event back in 2021. He was a delayed presentation due to the fact he was on antibiotics for a prostate issue that were said to have a side effect of shortness of breath and chest pressure. Patient is diabetic. He also has a history of hyperlipidemia and hypertension. [facility] Medical History Avulsion of skin of toe Facial cellulitis Acute kidney injury Elevated blood pressure reading Obesity (BMI 30-39.9) Diabetes History of left heart catheterization (LHC) (~06/02/21) Atherosclerotic heart disease of muscogee coronary artery without angina pectoris HLD (hyperlipidemia) Aortic valve disorder Cardiomyopathy Angina pectoris Nonspecific ST-T wave electrocardiographic changes Chest pain Acute UTI Intractable pain Orchitis Acute epididymitis Orchitis and epididymitis Tendinitis of extensor tendon of right hand High cholesterol History of prostate cancer History of skin cancer Home Medications ?Medication ?Instructions ?Recorded ?Last Taken ?Type aspirin 81 mg tablet,delayed 81 mg PO DAILY 06/13/21 0 12/29/24 History release (Adult Low Dose Aspirin) folic acid 1 mg tablet 1 mg PO DAILY 06/13/2112/29 History acetaminophen 500 mg tablet 1,000 mg PO BID PRN Pain 0 11/14/22 12/29/24 History tirzepatide 15 mg/0.5 mL 15 mg (0.5 mL) subcut QWEEK #2 mL 03/29/23 12/28/24 Rx subcutaneous pen injector (Elsa) atorvastatin 40 mg tablet 40 mg PO DAILY cholesterol # 90 tabs 04/30/23 12/28/24 Rx metoprolol tartrate 50 mg tablet 50 mg PO BID #180 tab s 04/30/23 12/29/24 Rx lisinopril 10 mg tablet 10 mg PO DAILY #90 tabs 05/1812/29/24 [facility] 12/29/24 Unknown Hi story Lite Strips) lancets 28 gauge ([facility] 12/29/24 Unknown History Lancets) metformin 500 mg tablet,extended 500 mg PO BID 5 12/29/24 History release 24 hr Allergy/AdvReac Type Severity Reaction Status Date / Time cephalexin AdvReac Pain in Verified 12/29/24 14:25 joints Family History Other Cancer Diabetes Surgical History History of coronary artery bypass surgery (~06/08/21) H/O prostatectomy Social History household members: none housing: apartment Smoking Status: Former smoker ROS Constitutional Constitutional: Reports as per HPI Eyes Eyes: Reports systems reviewed and no addt'l complaints, except as documented ENT HEENT: Reports systems reviewed and no addt'l complaints, except as documented Cardiovascular Cardiovascular: Reports as per HPI Respiratory/Chest Respiratory/Chest: Reports as per HPI Gastrointestinal Gastrointestinal: Reports systems reviewed and no addt'l complaints, except as documented Genitourinary Genitourinary: Reports as per HPI Musculoskeletal Musculoskeletal: Reports as per HPI Integumentary Integumentary: Reports systems reviewed and no addt'l complaints, except as documented Neurologic Neurologic: Reports as per HPI Psychiatric Psychiatric: Reports systems reviewed and no addt'l complaints, except as documented Endocrine Endocrinology: Reports as per HPI Hematologic/Lymphatic Hematologic/Lymphatic: Reports systems reviewed and no addt'l complaints, except as documented Allergic/Immunologic Allergic/Immunologic: Reports systems reviewed and no addt'l complaints, except as documented Physical Exam Const alert and oriented x3 HEENT normocephalic Eyes EOMs intact bilaterally Neck no JVD and no carotid bruits Chest inspection of chest normal Chest: midline sternotomy incision Resp normal respiratory effort and clear to auscultation bilaterally Cardio Rate: regular rate Rhythm: regular rhythm Heart Sounds: S1 normal, S2 normal and murmur systolic III/ harsh holo left sternal border to the neck; Negative for click or gallop GI soft to palpation Extremity no pedal edema Neuro Neuro Narrative: Alert and oriented x 3 Psych mental status grossly normal Charges/Coding Visit Charges Inpatient E&M: 71221 Init Hosp L3 Objective Data Vital Signs: Vital Signs Temp Pulse Resp BP Pulse Ox O2 Del Method 98.2 F 83 19 H 98/79 95 Room Air 12/29/24 16:29 12/29/24 16:29 12/29/24 16:29 12/29/24 16:29 12/29/24 16:29 12/29/24 14:19 Oxygen Delivery Method Room Air Weight: 233 lb 11.04 oz Body Mass Index (BMI) 34.4 Lab / Micro Data Attestation: I reviewed the patient's lab results. 12/29/24 14:31 12/29/24 14:31 Labs: Laboratory Results - last 24 hr 12/29/24 14:31: WBC 8.4, RBC 4.64, Hgb 13.7, Hct 41.0, MCV 88.4, MCH 29.5, MCHC 33.4, RDW Std Deviation 41.1, RDW Coeff of Khoa 12.7, Plt Count 189, MPV 9.9, Immature Gran % (Auto) 0.400, Neut % (Auto) 86.0 H, Lymph % (Auto) 7.8 L, King % (Auto) 4.8, Eos % (Auto) 0.6, Baso % (Auto) 0.4, Absolute Neuts (auto) 7.2, A bsolute Lymphs (auto) 0.66 L, Nucleated RBC % 0, PT 13.7, INR 1.0, APTT 26.1, Sodium 141, Potassium 4.3, Chloride 106, Carbon Dioxide 20.8 L, Anion Gap 14, B UN 21 H, Creatinine 0.84, Estim Creat Clear Calc 92.56, Est GFR (MDRD) Non-Af 92, BUN/Creatinine Ratio 25.1 H, Glucose 112 H, Calcium 9.3, Magnesium 2.0, T roponin T High Sens 58 H*, TSH 1.490 Rhythm Strip Rhythm Strip: Sinus Rhythm Rate: 80 Cardiology Labs/Tests 12/29/24 14:31: WBC 8.4, RBC 4.64, Hgb 13.7, Hct 41.0, MCV 88.4, MCH 29.5, MCHC 33.4, Plt Count 189, MPV 9.9, Immature Gran % (Auto) 0.400, Neut % (Auto) 86.0 H , Lymph % (Auto) 7.8 L, King % (Auto) 4.8, Eos % (Auto) 0.6, Baso % (Auto) 0.4, Absolute Neuts (auto) 7.2, Nucleated RBC % 0, PT 13.7, INR 1.0, APTT 26.1, Sodium 141, Potassium 4.3, Chloride 106, Carbon Dioxide 20.8 L, Anion Gap 14, B UN 21 H, Creatinine 0.84, Est GFR (MDRD) Non-Af 92, BUN/Creatinine Ratio 25.1 H, Glucose 112 H, Calcium 9.3, Magnesium 2.0 Rhythm: EKG: ECHO: Stress Test: Cardiac Cath: PCI: CT Surgery: Holter monitor: EPS: PPM: CXR: Chest CT Scan: Radiography Diagnostic Testing: Radiology Impression Brain CT 12/29/24 14:25 IMPRESSION: CHRONIC CHANGES. NO ACUTE FINDINGS. Reading Location: [facility] 12/29/24 14:25 IMPRESSION: No acute injury to the cervical spine. Reading Location: [id number] Chest X-Ray 12/29/24 14:55 IMPRESSION: Mild cardiac enlargement. Reading Location: [facility] Risk Score for UA/STEMI Assesmment (YES = 1) Risk Stratification Applicable: Yes Age > or = 65: Yes > or = 3 CAD risk factors (HTN, Hypercholesterolemia, Diabetes, family hx, current smoker): Yes Known CAD (Stenosis > or = 50%): Yes ASA used in past 7 days: Yes Severe angina (> or = 2 episodes in 24 hrs): No EKG ST change > or = 0.5mm: No Positive cardiac markers: Yes Score LEATHA Risk Score of mortality/ recurrent ischemic event over the next 14 days: 5 = 26.6% - HIGH RISK
[2024-12-29 17:28] LABS: Troponin T High Sens 2 HR 57 ng/L (<=22)
[2024-12-29 19:39] LABS: Troponin T High Sens 4 HR 54 ng/L (<=22)
[2024-12-30] VITALS (7 sets, daily range): BP systolic 125–137; BP diastolic 75–82; PULSE 78–95; RESP 16–18; TEMP 36.7–37.2; O2SAT 96–97
--- OUTSIDE RECORDS SUMMARY | 2024-12-30 00:04 | XMS RPT_ITS | CCD ---
Author Organization [facility] Care Team Providers Care Ambulance Assistant Name Role Phone Dixon Valadez MD Primary Care Provider Cathi FREIRE, Niraj Unavailable Dixon Valadez MD Unavailable Celestino RN, Bj Unavailable [facility] Jaren DE LEON, Vidhi Unavailable Unavailable Kash Dueñas Unavailable Malcom Packer MD, Rajat Majano Unavailable [phone] Celestino DE LEON, Bj Unavailable Dr. Dixon Valadez Primary Care Provider MD Starr Juan C Emergency Provider Dr. Sajan Castano Admit Provider Dr. Sajan Castano Attending Provider Dr. Sajan Castano Other Provider Dr. Kash Dueñas Attending Provider Dr. Kash Dueñas Other Provider Dr. Charles Cordero Attending Provider Dr. Sajan Castano Referring Provider Dr. Dixon Valadez Referring Provider Kaitlin BINGHAM, PA Lucy Hare Attending Provider DANETTE Oconnell Attending Provider Akshat Shelton MD Unavailable Dr. Dixon Valadez Primary Care Provider DANETTE Oconnell Attending Provider [phone] Dr. Kash Dueñas Attending Provider [phone] Akshat Shelton MD Unavailable Dr. Dixon Valadez Primary Care Provider [phone] Dr. Dixon Valadez Referring Provider [phone] Kaitlin BINGHAM, PA Lucy Hare Attending Provider Dixon Valadez MD Primary Care Provider Cathi FREIRE, Niraj Unavailable Dixon Valadez MD Unavailable Spenser, Kash F Unavailable Malcom Packer MD, Rajat Gene Unavailable Akshat Shelton MD Unavailable Dixon Valadez MD Unavailable Dixon Valadez MD Primary Care Provider Cathi FREIRE, Niraj Unavailable Dixon Valadez MD Unavailable Spenser, Kash F Unavailable Akshat Shelton MD Unavailable Dixon Valadez MD Primary Care Provider Cathi FREIRE, Niraj Unavailable Dixon Valadez MD Unavailable Spenser, Kash F Unavailable Malcom Packer MD, Rajat Gene Unavailable Akshat Shelton MD Unavailable Dr. Dixon Valadez Primary Care Provider [phone] Dr. Dixon Valadez Referring Provider DANETTE Scott NP Attending Provider DANETTE Oconnell Attending Provider Kash Dueñas F Unavailable Spenser LUCERO, Kash F Unavailable Dixon Valadez MD Primary Care Provider Spenser LUCERO, Kash Montelongo Unavailable Spenser LUCERO, Kash Montelongo Unavailable Kash Dueñas MD F Unavailable [place] THERAPY ASSISTANT.Lisa CASH Unavailable [place] THERAPY ASSISTANT.Maxim CASH Unavailable DIXON VALADEZ D Primary Care Unavailable KINGSTON, VICKIE T Attending Unavailable KINGSTON, VICKIE T Admitting Unavailable [place] THERAPY ASSISTANT.Lisa CASH Unavailable RAJAT العراقي JR Attending Unavaila ble ELDERYU, DIXON D Primary Care Unavailable [place] THERAPY ASSISTANT.Lisa CASH Unavailable RORY, DIXON D Primary Care Unavailable RORY, DIXON Cadence Referring Unavailable ELDERBROANEL, DIXON D Primary Care Unavailable KINGSTON, VICKIE T Attending Unavailable RORY, DIXON D Primary Care Unavailable KINGSTON, VICKIE T Referring Unavailable ELDERBROCK, DIXON D Primary Care Unavailable KINGSTON, VICKIE T Referring Unavailable ELDERBROANEL, DIXON D Primary Care Unavailable KINGSTON, VICKIE T Attending Unavailable HARRIETT HARMON Attending Unavailable ELDERYU, DIXON D Primary Care Unavailable ELDERBROANEL, DIXON D Primary Care Unavailable RAJAT العراقي JR Referring Unavaila ble ELDERBROCK, DIXON Cadence Referring Unavailable HARRIET COPE Attending Unavailable ELDERBROANEL, DIXON Cadence Primary Care Unavailable ELDERBROANEL, DIXON Cadence Primary Care Unavailable RORY, DIXON Cadence Attending Unavailable RORY, DIXON D Primary Care Unavailable RAJAT العراقي JR Referring Unavaila ble ELDERBROANEL, DIXON Cadence Attending Unavailable ELDERBROANEL, DIXON D Primary Care Unavailable ELDERBROANEL, DIXON D Referring Unavailable ELDERBROANEL, DIXON D Primary Care Unavailable ELDERBROANEL, DIXON D Primary Care Unavailable KINGSTON, VICKIE T Referring Unavailable ELDERBROANEL, DIXON D Primary Care Unavailable ELDERBROANEL, DIXON D Primary Care Unavailable PATI-FORREST MCGINNIS Referring Unavailab DIXON Collins Attending Unavailable DIXON VALADEZ Primary Care Unavailable Rory LUCERO, Dr. Zimmerman Primary Care Provider Temo LUCERO, Dr. Jose Delarosa Attending Provider Tyler ROENTGENOLOGY TEACHER, Adriana Referring Unavailable Tyler ROENTGENOLOGY TEACHER, Adriana Consulting Unavailable Amado Espinosa Attending Unavailable Dixon Valadez Primary Care Unavailable Tyler ROENTGENOLOGY TEACHER, Adriana Referring Unavailable Tyler ROENTGENOLOGY TEACHER, Adriana Attending Unavailable Dixon Valadez Primary Care Unavailable Dixon Valadez Primary Care Unavailable Jose Plascencia Attending Unavailable Kaitlin BINGHAM, Lucy Hare Attending Unavail able Dixon Valadez Referring Unavailable Dixon Valadez Primary Care Unavailable Tyler ROENTGENOLOGY TEACHER, Adriana Attending Unavailable Dixon Valadez Primary Care Unavailable Jennifer LUCERO, Dr. Kenny Emergency Provider Unavailab billy Hull MD, Dr. Stephen Admit Provider [phone] Kurtis LUCERO, Dr. Stephen Attending Provider Allergies Allergy Classification Reported Allergen(s) Allergy Type Date of Onset Reaction(s) Facility Cephalosporins (antibiotic) (1 source) Cephalexin Drug Allergy 1 Other: See Comments [facility] semaglutide (1 source) semaglutide Drug Allergy 3 Diarrhea [facility] (20 sources) Cephalexin; Translations: [CEPHALEXIN] Drug Allergy 1 Other: See Comments [facility] (20 sources) semaglutide; Translations: [SEMAGLUTIDE] Drug Allergy 3 Diarrhea [facility] (13 sources) dulaglutide; Translations: [DULAGLUTIDE] Drug Allergy 5 GI Upset [facility] Other [facility] (1 source) Cephalexin Drug Allergy 5 [facility] Medications Current Medications Medication Drug Class(es) Dates Sig (Normalized) Sig (Original) acetaminophen 500 mg oral tablet (20 sources) Start: 11-14-2022 take 2 tablets by mouth twice daily as needed for pain Acetaminophen 500 mg tablet Active 1000 mg PO TWICE A DAY as needed for Pain November 14, 2022 9:58am Start: 06-13-2021 End: 11-14-2022 take 2 tablets by mouth every four hours as needed for pain Acetaminophen 500 mg tablet Discontinued 1000 mg PO Q4H as needed for Pain June 13, 2021 1:00am November 14, 2022 9:58am Start: 06-13-2021 take 1000 mg by mout h every four hours Acetaminophen Active 1000 MG PO Q4H June 13, 2021 1:00am Start: 06-12-2021 take 2 tablets by mo uth four times daily acetaminophen (TYLENOL) 500 mg tablet Take 2 tablets by mouth four times daily. 28 tablet 06/12/2021 Active Comment on above: Take 2 tablets by mo uth four times daily. acetaminophen 325 mg / oxyCODONE hydrochloride 5 mg oral tablet (2 sources) Opioid Agonist Start: 5 End: 5 take 1 tablet by mouth four times daily as needed for pain oxyCODONE-acetamino phen (PERCOCET) 5-325 mg tablet Indications: Incisional hernia, without obstruction or gangrene Take 1 tablet by mouth four times a day as needed for pain for up to 5 days. FOR PAIN. 12 tablet 06/02/2024 1:34 PM EST 06/02/2024 06/07/2024 Active aspirin 81 mg chewable tablet (20 sources) Platelet Aggregation Inhibitor, Nonsteroidal Anti-inflammatory Drug Start: 2 End: 2 take 1 tablet by mouth once daily, then take 1 tablet by mouth once daily aspirin 81 mg chewable tablet Take 1 tablet by mouth once daily. Take one ASPIRIN daily for life. 90 tablet 2 06/13/2021 Active Start: 06-13-2021 Aspirin (Adult Low Dose Aspirin) 81 mg tablet,delayed release (DR/EC) Active 81 mg PO DAILY June 13, 2021 1:00am Comment on above: Take 1 tablet by galo th once daily. Take one ASPIRIN daily for life. atorvastatin 40 mg oral tablet (20 sources) HMG-CoA Reductase Inhibitor Start: 1 End: 5 take 1 tablet by mouth once daily Atorvastatin 40 mg tablet Active 40 mg PO DAILY 90 3 April 30, 2023 11:52am cholesterol Comment on above: take 1 tablet by galo th once daily Take 1 tablet by galo th once daily. TAKE 1 TABLET DAILY Blood Pressure Monitor (20 sources) Start: 2 Blood Pressure Monitor CHECK vital signs daily or as needed 1 Kit 06/13/2021 Active Start: 06-13-2021 Blood Pressure Monitor CHECK vital signs daily or as needed 1 Kit 0 06/13/2021 Active Comment on above: CHECK vital signs da taylor or as needed Blood-Glucose Meter (TRUE METRIX AIR GLUCOSE METER) (20 sources) Start: 06-15-2021 Blood-Glucose Meter (TRUE METRIX AIR GLUCOSE METER) Indications: Type 2 diabetes mellitus without complication, with long-term current use of insulin (HCC) Test blood sugar(s) 3 times daily. Dx: Type 2 DM - Controlled E11.9 Insulin: Yes 1 Each 06/15/2021 Active Start: 06-15-2021 Blood-Glucose Meter (TRUE METRIX AIR GLUCOSE METER) Indications: Type 2 diabetes mellitus without complication, with long-term current use of insulin (HCC) Test blood sugar(s) 3 times daily. Dx: Type 2 DM - Controlled E11.9 Insulin: Yes 1 Each 0 06/15/2021 Active Comment on above: Test blood sugar(s) 3 times daily. Dx: Type 2 DM - Controlled E11.9 Insulin: Yes folic acid 1 mg oral tablet (20 sources) Start: 06-13-19 End: 06-05-19 take 1 tablet by mouth once daily folic acid 1 mg tablet Take 1 tablet by mouth once daily. 90 tablet 3 11/24/2024 Active Comment on above: Take 1 tablet by galo th once daily. TAKE 1 TABLET DAILY 3 ml insulin glargine 100 unt/ml pen injector (20 sources) Insulin Analog Start: 06-13-19 End: 09-02-19 inject 10 [IU] by subcutaneous injection every twenty-four hours insulin glargine (LANTUS SOLOSTAR U-100 INSULIN) 100 unit/mL (3 mL) Inject 10 Units subcutaneously every 24 hours. 5 Pen 2 06/13/2021 09/01/2021 Discontinued Start: 06-13-2021 End: 10-25-2021 Insulin Glargine (Lantus Layla ostar U-100 Insulin) 100 unit/mL (3 mL) insulin pen Discontinued 10 U SC EVERY EVENING June 13, 2021 1:00am October 25, 2021 8:30am Comment on above: Inject 10 Units subc utaneously every 24 hours. iv contrast (will be provided with radiology test) (1 source) Start: 09-15-19 End: 09-16-19 iv contrast (will be provided with radiology test) Indications: Prostate cancer (HCC) MRI Prostate Inject, intravenously, once for 1 dose. No IV access, insert saline lock prior to the beginning of sedation, infusion, injection of imaging exam. Discontinue saline lock post exam. If Pt. has a central line or IVAD, may access for administration according to line specific nursing protocol. Once exam is complete flush line and de-access according to line specific nursing protocol in the MR contrast administration guidelines link. 1 Each 0 09/14/2021 09/15/2021 Active Comment on above: MRI Prostate Inject, intravenously, once for 1 dose. No IV access, insert saline lock prior to the beginning of sedation, infusion, injection of imaging exam. Discontinue saline lock post exam. If Pt. has a central line or IVAD, may access for administration according to line specific nursing protocol. Once exam is complete flush line and de-access according to line specific nursing protocol in the MR contrast administration guidelines link. melatonin 3 mg oral tablet (20 sources) Start: 06-16-19 End: 09-02-19 take 1 tablet by mouth every twenty-four hours as needed melatonin 3 mg tablet Take 3 mg by mouth at bedtime as needed for for insomnia. 0 06/15/2021 09/01/2021 Discontinued Comment on above: Take 3 mg by mouth a t bedtime as needed for for insomnia. 24 hr metFORMIN hydrochloride 500 mg extended release oral tablet (20 sources) Biguanide Start: 12-30-19 take 1 tablet by mouth twice daily Metformin 500 mg tablet extended release 24 hr Active 500 mg PO TWICE A DAY December 29, 2024 12:00am Start: 11-24-2024 take 1 tablet by galo th twice daily at mealtime metFORMIN ER (GLUCOPHAGE XR) 500 mg 24 hr tablet Indications: Type 2 diabetes mellitus without complication, without long-term current use of insulin (HCC) Take 1 tablet by mouth two times a day with meals. 360 tablet 3 11/24/2024 Active Start: 04-24-2023 End: 06-05-2024 take 1 tablet by mouth twice daily at mealtime metFORMIN ER (GLUCOPHAGE XR) 500 mg 24 hr tablet Indications: Type 2 diabetes mellitus without complication, without long-term current use of insulin (HCC) Take 1 tablet by mouth two times a day with meals. 360 tablet 3 06/05/2024 Active Start: 08-24-2021 End: 12-29-2024 take 1 tablet by mouth twice daily Metformin 500 mg tablet extended release 24hr Discontinued 1000 mg PO TWICE A DAY 360 3 August 24, 2021 10:58am December 11, 2023 8:30am Start: 08-24-2021 End: 08-24-2021 take 1000 mg by mouth twice daily Metformin Active 1000 MG PO TWICE A DAY 360 August 24, 2021 10:58am Start: 08-15-2021 End: 08-24-2021 take 2 tablets by mouth twice daily Metformin 500 mg tablet Discontinued 1000 mg PO TWICE A DAY 360 August 15, 2021 11:22am August 24, 2021 9:00am Start: 08-15-2021 End: 08-24-2021 take 1000 mg by mouth twice daily Metformin Discontinued 1000 MG PO TWICE A DAY 360 August 15, 2021 11:22am August 24, 2021 9:00am Start: 06-13-2021 End: 08-15-2021 take 1 tablet by mouth twice daily Metformin 500 mg tablet Discontinued 500 mg PO TWICE A DAY June 13, 2021 1:00am August 15, 2021 11:23am Start: 06-12-2021 End: 02-09-2023 take 2 tablets by mouth twice daily at mealtime metFORMIN ER (GLUCOPHAGE XR) 500 mg 24 hr tablet Indications: Type 2 diabetes mellitus without complication, without long-term current use of insulin ([facility]) Take 2 tablets by mouth two times a day with meals. 360 tablet 3 02/09/2023 Active Comment on above: Take 1 tablet by galo twice daily with meals. Take 2 tablets by mo [facility] twice daily with meals. Take 2 tablets by mo [facility] two times a day with meals. metoprolol tartrate 50 mg oral tablet (20 sources) beta-Adrenergic Babs Start: 11-24-2024 take 1 tablet by mouth every twelve hours metoprolol tartrate, short acting, (LOPRESSOR) 50 mg tablet Take 1 tablet by mouth every 12 hours. 180 tablet 3 11/24/2024 Active Start: 04-24-2023 End: 06-05-2024 take 1 tablet by mouth every twelve hours metoprolol tartrate, short acting, (LOPRESSOR) 50 mg tablet Take 1 tablet by mouth every 12 hours. 180 tablet 3 06/05/2024 Active Start: 04-27-2022 take 1 tablet by galo every twelve hours metoprolol tartrate, short acting, (LOPRESSOR) 50 mg tablet Take 1 tablet by mouth every 12 hours. 180 tablet 3 04/27/2022 Active Start: 11-03-2021 End: 04-30-2023 take 1 tablet by mouth twice daily Metoprolol Tartrate 50 mg tablet Discontinued 50 mg PO TWICE A DAY April 26, 2022 9:34am April 30, 2023 11:53am Start: 11-03-2021 End: 11-03-2021 take 2 tablets by mouth twice daily Metoprolol Tartrate 25 mg tablet Discontinued 50 mg PO TWICE A DAY November 03, 2021 4:27pm November 03, 2021 4:28pm Start: 11-03-2021 End: 11-03-2021 take 50 mg by mouth twice daily Metoprolol Tartrate Di scontinued 50 MG PO TWICE A DAY November 03, 2021 4:27pm November 03, 2021 4:28pm Start: 08-22-2021 End: 04-27-2022 take 2 tablets by mouth every twelve hours metoprolol tartrate, short acting, (LOPRESSOR) 25 mg tablet Take 2 tablets by mouth every 12 hours. 180 tablet 1 08/25/2021 04/27/2022 Discontinued Start: 08-09-2021 take 2 tablets by mo ut every twelve hours metoprolol tartrate, short acting, (LOPRESSOR) 25 mg tablet Take 2 tablets by mouth every 12 hours. 60 tablet 4 08/09/2021 Active Start: 06-20-2021 End: 08-08-2021 take 2 tablets by mouth every twelve hours metoprolol tartrate, short acting, (LOPRESSOR) 25 mg tablet Take 2 tablets by mouth every 12 hours. 60 tablet 1 06/20/2021 08/08/2021 Discontinued Start: 06-13-2021 End: 11-03-2021 take 1 tablet by mouth twice daily Metoprolol Tartrate 25 mg tablet Discontinued 25 mg PO TWICE A DAY June 13, 2021 1:00am November 03, 2021 4:27pm Comment on above: Take 2 tablets by mo [facility] every 12 hours. Take 1 tablet by galo th every 12 hours. mupirocin 0.02 mg/mg topical ointment (6 sources) RNA Synthetase Inhibitor Antibacterial Start: 11-12-19 End: 11-22-19 mupirocin (BACTROBAN) 2 % ointment Indications: Abscess of scrotal wall Apply to affected area three times daily for 10 days. 30 g 0 11/11/2021 11/21/2021 Active Comment on above: Apply to affected ar ea three times daily for 10 days. polyethylene glycol 3350 [id number] mg / potassium chloride 2970 mg / sodium bicarbonate 6740 mg / sodium chloride 5860 mg / sodium sulfate 14954 mg powder for oral solution (1 source) Osmotic Laxative Start: 10-04-19 End: 10-04-19 peg 3350-Electrolytes (GOLYTELY) 236-22.74-6.74 -5.86 gram suspension Indications: Screening for colon cancer Take 4,000 mL by mouth one time only for 1 dose. Refer to printed prep instructions from your provider. 4000 mL 10/03/2024 10/03/2024 Active 125 ml sodium chloride 9 mg/ml prefilled syringe (20 sources) Start: 05-16-19 End: 08-17-19 sodium chloride 0.9 % (flush) 10 mL (BD POSIFLUSH) sulfamethoxazole 800 mg / trimethoprim 160 mg oral tablet (20 sources) Dihydrofolate Reductase Inhibitor Antibacterial, Sulfonamide Antimicrobial Start: 12-13-19 End: 12-23-19 take 1 tablet by mouth twice daily sulfamethoxazole-tr imethoprim (BACTRIM DS) 800-160 mg per tablet Indications: Abscess of scrotal wall Take 1 tablet by mouth twice daily for 10 days. 20 tablet 0 12/12/2021 12/22/2021 Active Start: 11-23-2021 End: 12-03-2021 take 1 tablet by mouth twice daily sulfamethoxazole-trimethoprim (BACTRIM D S) 800-160 mg per tablet Indications: Abscess of scrotal wall Take 1 tablet by mouth twice daily for 10 days. 20 tablet 0 11/23/2021 12/03/2021 Active Start: 11-11-2021 End: 11-18-2021 take 1 tablet by mouth twice daily sulfamethoxazole-trimethoprim (BACTRIM D S) 800-160 mg per tablet Indications: Abscess of scrotal wall Take 1 tablet by mouth twice daily for 7 days. 14 tablet 0 11/11/2021 11/18/2021 Active Comment on above: Take 1 tablet by galo th twice daily for 7 days. Take 1 tablet by galo th twice daily for 10 days. tirzepatide (MOUNJARO) 15 mg/0.5 mL pen injector (20 sources) Start: 11-25-19 End: 11-25-19 inject 15 mg by subcutaneous injection every week tirzepatide (MOUNJARO) 15 mg/0.5 mL pen injector Indications: Type 2 diabetes mellitus without complication, without long-term current use of insulin (HCC) Inject 15 mg subcutaneously one time a week. 6 mL 3 11/24/2024 11/24/2025 Active Start: 06-05-2024 End: 06-05-2025 inject 15 mg by subcutaneous injection every week tirzepatide (MOUNJARO) 15 mg/0.5 mL pen injector Indications: Type 2 diabetes mellitus without complication, without long-term current use of insulin (HCC) Inject 15 mg subcutaneously one time a week. 6 mL 3 06/05/2024 06/05/2025 Active Start: 03-07-2024 End: 06-05-2024 inject 15 mg by subcutaneous injection every week tirzepatide (MOUNJARO) 15 mg/0.5 mL pen injector Indications: Type 2 diabetes mellitus without complication, without long-term current use of insulin (HCC) Inject 15 mg subcutaneously one time a week. 6 mL 3 03/07/2024 06/05/2024 Discontinued Start: 03-07-2024 End: 03-07-2025 inject 15 mg by subcutaneous injection every week tirzepatide (MOUNJARO) 15 mg/0.5 mL pen injector Indications: Type 2 diabetes mellitus without complication, without long-term current use of insulin (HCC) Inject 15 mg subcutaneously one time a week. 6 mL 3 03/07/2024 03/07/2025 Active Start: 04-30-2023 End: 03-07-2024 inject 15 mg by subcutaneous injection every week tirzepatide (MOUNJARO) 15 mg/0.5 mL pen injector Indications: Type 2 diabetes mellitus without complication, without long-term current use of insulin (HCC) Inject 15 mg subcutaneously one time a week. 6 mL 3 04/30/2023 03/07/2024 Discontinued Start: 04-30-2023 End: 04-29-2024 inject 15 mg by subcutaneous injection every week tirzepatide (MOUNJARO) 15 mg/0.5 mL pen injector Indications: Type 2 diabetes mellitus without complication, without long-term current use of insulin (HCC) Inject 15 mg subcutaneously one time a week. 6 mL 3 04/30/2023 04/29/2024 Active Start: 04-02-2023 End: 04-01-2024 inject 15 mg by subcutaneous injection every week tirzepatide (MOUNJARO) 15 mg/0.5 mL pen injector Indications: Type 2 diabetes mellitus without complication, without long-term current use of insulin (HCC) Inject 15 mg subcutaneously one time a week. 6 mL 3 04/02/2023 04/01/2024 Active Comment on above: Inject 15 mg subcuta neously one time a week. Tirzepatide (Mounjaro) 15 mg/0.5 mL pen injector (4 sources) Start: 03-29-2023 Tirzepatide (Mounjaro) 15 mg/0.5 mL pen injector Active 15 mg SC EVERY WEEK 2 0 March 29, 2023 1:14pm Diabetes mellitus Type 2 diabetes mellitus with hyperglycemia Start: 03-29-2023 End: 03-29-2023 Tirzepatide (Mounjaro) 15 mg /0.5 mL pen injector Discontinued 15 mg SC EVERY WEEK 2 March 29, 2023 1:00am March 29, 2023 1:15pm Diabetes mellitus Type 2 diabetes mellitus with hyperglycemia Completed/Discontinued Medications Medication Drug Class(es) Dates Sig (Normalized) Sig (Original) acetaminophen 325 mg / HYDROcodone bitartrate 5 mg oral tablet (15 sources) Opioid Agonist Start: 03-26-2021 End: 03-29-2021 Hydrocodone-Acetami nophen 5-325 mg tablet Discontinued 1 {tbl} PO EVERY 6 HOURS as needed for pain 10 3 0 March 26, 2021 March 29, 2021 11:40am Orchitis and epididymitis Epididymo-orchitis Start: 03-26-2021 End: 03-29-2021 take 1 tablet by mouth every six hours Hydrocodone-Acetaminophen Discontinued 1 TABLET PO EVERY 6 HOURS 10 March 26, 2021 March 29, 2021 11:40am Blood Glucose Control, Normal soln (20 sources) Start: 06-12-2021 Blood Glucose Control, Normal soln 1 Bottle as directed. 1 Each 1 06/12/2021 Active Comment on above: 1 Bottle as directed . clopidogrel 75 mg oral tablet (20 sources) [id number] Platelet Inhibitor Start: 06-13-2021 End: 11-20-2023 take 1 tablet by mouth once daily Clopidogrel 75 mg tablet Discontinued 75 mg PO DAILY 90 April 30, 2023 11:52am June 12, 2023 2:35pm Comment on above: Take 1 tablet by galo th once daily. Continue Plavix x one year, following heart attack. doxycycline hyclate 100 mg oral capsule (4 sources) Tetracycline-cla ss Drug Start: 12-28-2022 End: 01-07-2023 take 1 capsule by mouth twice daily Doxycycline Hyclate 100 mg capsule Discontinued 100 mg PO TWICE A DAY 20 10 0 December 28, 2022 12:00am January 06, 2023 12:00am January 07, 2023 12:04am Acute sinusitis, unspecified Start: 11-14-2022 End: 06-12-2023 take 1 capsule by mouth twice daily Doxycycline Monohydrate 100 mg capsule Discontinued 100 mg PO TWICE A DAY 20 0 November 14, 2022 12:00am June 12, 2023 2:08pm 0.5 ml dulaglutide 1.5 mg/ml auto-injector (20 sources) GLP-1 Receptor Agonist Start: 04-26-2022 End: 05-11-2022 Dulaglutide (Trulicity) 0.75 mg/0.5 mL pen injector Discontinued 0.75 mg SC EVERY WEEK April 26, 2022 9:26am May 11, 2022 9:10am Start: 12-25-2021 End: 04-26-2022 Dulaglutide (Trulicity) 0.75 mg/0.5 mL pen injector Discontinued 0.75 mg SC DAILY December 25, 2021 12:00am April 26, 2022 9:28am Start: 12-02-2021 End: 02-24-2022 inject 1 dose by subcutaneous injection every week dulaglutide (TRULICITY) 0.75 mg/0.5 mL pen injector Indications: Type 2 diabetes mellitus without complication, without long-term current use of insulin (HCC) Inject 3 mg subcutaneously one time a week. Inject dose once per week. Discard Pen After 0 12/02/2021 02/24/2022 Discontinued Start: 11-10-2021 Dulaglutide (T rulicity) 4.5 mg/0.5 mL pen injector Active 4.5 MG SC EVERY WEEK 6 November 10, 2021 8:34am Start: 11-07-2021 End: 11-10-2021 Dulaglutide (Trulicity) 4.5 mg/0.5 mL pen injector Discontinued 4.5 mg SC EVERY WEEK 2 November 07, 2021 12:00am November 10, 2021 8:34am Start: 11-07-2021 End: 11-10-2021 Dulaglutide (Trulicity) 4.5 mg/0.5 mL pen injector Discontinued 4.5 MG SC EVERY WEEK 2 November 06, 2021 11:00pm November 10, 2021 7:34am Start: 11-07-2021 End: 11-10-2021 Dulaglutide (Trulicity) 4.5 mg/0.5 mL pen injector Discontinued 4.5 MG SC EVERY WEEK 2 November 07, 2021 12:00am November 10, 2021 8:34am Start: 10-04-2021 End: 11-07-2021 Dulaglutide (Trulicity) 3 mg /0.5 mL pen injector Discontinued 3 mg SC EVERY WEEK 6 October 04, 2021 12:00am November 07, 2021 2:35pm Start: 10-04-2021 End: 11-07-2021 Dulaglutide (Trulicity) 3 mg /0.5 mL pen injector Discontinued 3 MG SC EVERY WEEK 6 October 03, 2021 11:00pm November 07, 2021 1:35pm Start: 10-04-2021 End: 11-07-2021 Dulaglutide (Trulicity) 3 mg /0.5 mL pen injector Discontinued 3 MG SC EVERY WEEK October 04, 2021 12:00am November 07, 2021 2:35pm Start: 10-04-2021 Dulaglutide (T rulicity) 3 mg/0.5 mL pen injector Active 3 MG SC EVERY WEEK October 04, 2021 12:00am Start: 09-08-2021 End: 10-04-2021 Dulaglutide (Trulicity) 1.5 mg/0.5 mL pen injector Discontinued 1.5 mg SC EVERY WEEK 6 October 04, 2021 11:47am October 04, 2021 5:25pm Start: 08-15-2021 End: 09-08-2021 Dulaglutide (Trulicity) 0.75 mg/0.5 mL pen injector Discontinued 0.75 mg SC EVERY WEEK 2 August 15, 2021 12:00am September 08, 2021 11:27am Comment on above: Inject 0.75 mg subcu taneously one time a week. Inject dose once per week. Discard Pen After Inject 3 mg subcutan eously one time a week. Inject dose once per week. Discard Pen After dulaglutide (TRULICITY) 4.5 mg/0.5 mL pen injector (17 sources) Start: inject 4.5 mg by subcutaneous injection every week dulaglutide (TRULICITY) 4.5 mg/0.5 mL pen injector Indications: Type 2 diabetes mellitus without complication, without long-term current use of insulin (HCC) Inject 4.5 mg subcutaneously one time a week. 4 Each 05/02/2022 Active Start: 05-02-2022 End: 06-01-2022 inject 4.5 mg by subcutaneous injection every week dulaglutide (TRULICITY) 4.5 mg/0.5 mL pen injector Indications: Type 2 diabetes mellitus without complication, without long-term current use of insulin (HCC) Inject 4.5 mg subcutaneously one time a week. 4 Each 5 05/02/2022 06/01/2022 Active Start: 05-02-2022 End: 05-02-2022 dulaglutide (TRULICITY) 4.5 mg/0.5 mL pen injector Indications: Type 2 diabetes mellitus without complication, without long-term current use of insulin (HCC) PLEASE UPDATE FOR ANY MEDICATION CHANGE 4 Each 5 05/02/2022 05/02/2022 Discontinued Start: 04-27-2022 End: 05-02-2022 inject 4.5 mg by subcutaneous injection every week dulaglutide (TRULICITY) 4.5 mg/0.5 mL pen injector Indications: Type 2 diabetes mellitus without complication, without long-term current use of insulin (HCC) Inject 4.5 mg subcutaneously one time a week. 12 Each 4 04/27/2022 05/02/2022 Discontinued Start: 04-27-2022 inject 4.5 mg by sub cutaneous injection every week dulaglutide (TRULICITY) 4.5 mg/0.5 mL pen injector Indications: Type 2 diabetes mellitus without complication, without long-term current use of insulin (HCC) Inject 4.5 mg subcutaneously one time a week. 12 Each 4 04/27/2022 Active Start: 02-24-2022 End: 04-27-2022 inject 4.5 mg by subcutaneous injection every week dulaglutide (TRULICITY) 4.5 mg/0.5 mL pen injector Indications: Type 2 diabetes mellitus without complication, without long-term current use of insulin (HCC) Inject 4.5 mg subcutaneously one time a week. 12 Each 4 02/24/2022 04/27/2022 Discontinued Start: 02-24-2022 inject 4.5 mg by sub cutaneous injection every week dulaglutide (TRULICITY) 4.5 mg/0.5 mL pen injector Indications: Type 2 diabetes mellitus without complication, without long-term current use of insulin (HCC) Inject 4.5 mg subcutaneously one time a week. 12 Each 4 02/24/2022 Active Comment on above: Inject 4.5 mg subcut aneously one time a week. PLEASE UPDATE FOR AN Y MEDICATION CHANGE ferrous sulfate 325 mg oral tablet (20 sources) Start: 2 End: 3 take 1 tablet by mouth once daily Ferrous Sulfate 325 mg (65 mg iron) Tablet Discontinued 325 mg PO DAILY December 25, 2021 12:00am April 26, 2022 9:26am Start: 03-29-2021 End: 10-25-2021 take 1 tablet by mouth once daily Ferrous Sulfate (Ferosul) 325 mg (65 mg iron) tablet Discontinued 325 mg PO DAILY 0 0 March 29, 2021 11:42am October 25, 2021 8:30am iron supplement Start: 03-26-2021 End: 03-29-2021 take 1 tablet by mouth twice daily Ferrous Sulfate (Ferosul) 325 mg (65 mg iron) tablet Discontinued 325 mg PO TWICE A DAY March 26, 2021 1:00am March 29, 2021 11:42am iron supplement Start: 03-16-2021 End: 11-11-2021 take 1 tablet by mouth twice daily at mealtime ferrous sulfate 325 mg (65 mg iron) tablet Take 1 tablet by mouth twice daily with meals. 60 tablet 2 07/25/2021 11/11/2021 Discontinued (Course of therapy completed) Comment on above: Take 1 tablet by galo th twice daily with meals. 1.5 ml leuprolide acetate 30 mg/ml prefilled syringe (3 sources) Gonadotropin Releasing Hormone Receptor Agonist Start: 07-27-19 End: 08-26-19 leuprolide (6 month) 45 mg IM syringe kit (LUPRON) levoFLOXacin 500 mg oral tablet (15 sources) Quinolone Antimicrobial Start: 03-26-20 End: 03-29-20 take 1 tablet by mouth once daily Levofloxacin 500 mg tablet Discontinued 500 mg PO DAILY 9 March 26, 2021 1:00am March 29, 2021 11:42am lisinopril 10 mg oral tablet (20 sources) Angiotensin Converting Enzyme Inhibitor Start: 11-04-19 End: 06-05-19 take 1 tablet by mouth once daily Lisinopril 10 mg tablet Discontinued 10 mg PO DAILY 90 3 December 18, 2023 9:07am June 05, 2024 11:40am Start: 10-25-2021 End: 11-03-2021 take 1 tablet by mouth once daily Lisinopril 5 mg tablet Discontinued 5 mg PO DAILY 90 October 25, 2021 12:00am November 03, 2021 4:26pm Comment on above: Take 10 mg by mouth. magnesium oxide 400 mg oral tablet (20 sources) Start: End: take 1 tablet by mouth once daily Magnesium Oxide 400 mg magnesium tablet Discontinued 400 mg PO DAILY June 13, 2021 1:00am October 25, 2021 8:30am Comment on above: Take 1 tablet by galo th once daily. nitrofurantoin, macrocrystals 25 mg / nitrofurantoin, monohydrate 75 mg oral capsule (10 sources) Nitrofuran Antibacterial Start: End: take 1 capsule by mouth twice daily at mealtime Nitrofurantoin Monohyd/M-Cryst (Macrobid) 100 mg capsule Discontinued 100 mg PO TWICE A DAY 14 7 0 December 25, 2021 12:00am April 26, 2022 9:28am must administer with a meal/food OZEMPIC 2 mg/dose (8 mg/3 mL) pen injector (4 sources) Start: End: inject 2 mg by subcutaneous injection every week OZEMPIC 2 mg/dose (8 mg/3 mL) pen injector Inject 2 mg subcutaneously one time a week. 0 05/26/2022 07/24/2022 Discontinued Start: 05-26-2022 inject 2 mg by subcu taneous injection every week OZEMPIC 2 mg/dose (8 mg/3 mL) pen injector Inject 2 mg subcutaneously one time a week. 0 05/26/2022 Active Comment on above: Inject 2 mg subcutan eously one time a week. semaglutide (OZEMPIC) 1 mg/dose (4 mg/3 mL) pen (2 sources) Start: End: inject 1 mg by subcutaneous injection every week semaglutide (OZEMPIC) 1 mg/dose (4 mg/3 mL) pen Inject 1 mg subcutaneously one time a week. 3 mL 2 07/20/2022 07/24/2022 Discontinued Start: 07-20-2022 inject 1 mg by subcu taneous injection every week semaglutide (OZEMPIC) 1 mg/dose (4 mg/3 mL) pen Inject 1 mg subcutaneously one time a week. 3 mL 2 07/20/2022 Active Comment on above: Inject 1 mg subcutan eously one time a week. Semaglutide (Ozempic) 2 mg/dose (8 mg/3 mL) pen injector (10 sources) Start: 10-23-2022 End: 10-23-2022 Semaglutide (Ozempic) 2 mg/dose (8 mg/3 mL) pen injector Discontinued 2 mg SC EVERY WEEK October 23, 2022 12:00am October 23, 2022 10:16am Start: 06-01-2022 End: 09-15-2022 Semaglutide (Ozempic) 2 mg/d ose (8 mg/3 mL) pen injector Discontinued 2 mg SC EVERY WEEK 9 June 01, 2022 11:31am September 15, 2022 4:12pm Diabetes mellitus Type 2 diabetes mellitus with hyperglycemia Start: 06-01-2022 End: 09-15-2022 Semaglutide (Ozempic) 2 mg/d ose (8 mg/3 mL) pen injector Discontinued 2 MG SC EVERY WEEK 9 June 01, 2022 11:31am September 15, 2022 4:12pm Start: 05-11-2022 End: 06-01-2022 Semaglutide (Ozempic) 2 mg/d ose (8 mg/3 mL) pen injector Discontinued 2 mg SC EVERY WEEK 3 May 11, 2022 1:00am June 01, 2022 11:31am Diabetes mellitus Type 2 diabetes mellitus with hyperglycemia Start: 05-11-2022 End: 06-01-2022 Semaglutide (Ozempic) 2 mg/d ose (8 mg/3 mL) pen injector Discontinued 2 MG SC EVERY WEEK 3 May 11, 2022 1:00am June 01, 2022 11:31am Start: 05-11-2022 Semaglutide (O zempic) 2 mg/dose (8 mg/3 mL) pen injector Active 2 MG SC EVERY WEEK 3 May 11, 2022 12:00am SITagliptin 100 mg oral tablet (20 sources) Dipeptidyl Peptidase 4 Inhibitor Start: 10-25-2021 End: 04-26-2022 take 1 tablet by mouth once daily Sitagliptin Phosphate (Januvia) 100 mg tablet Discontinued 100 mg PO DAILY October 25, 2021 12:00am April 26, 2022 9:27am Start: 06-13-2021 End: 10-04-2021 take 1 tablet by mouth once daily Sitagliptin Phosphate 100 mg tablet Discontinued 100 mg PO DAILY 90 August 15, 2021 4:26pm October 04, 2021 11:48am Comment on above: Take 1 tablet by galo th once daily. sulfamethoxazole 500 mg oral tablet (5 sources) Sulfonamide Antimicrobial Start : 12-25 End: 04-26 take 1 tablet by mouth twice daily Sulfamethoxazole 500 mg Tablet Discontinued 500 mg PO TWICE A DAY December 25, 2021 12:00am April 26, 2022 9:28am tirzepatide (MOUNJARO) 10 mg/0.5 mL pen injector (2 sources) Start : 07-24 inject 10 mg by subcutaneous injection every week tirzepatide (MOUNJARO) 10 mg/0.5 mL pen injector Inject 10 mg subcutaneously one time a week. 6 mL 3 07/24/2022 Active Comment on above: Inject 10 mg subcuta neously one time a week. Tirzepatide (Mounjaro) 10 mg/0.5 mL pen injector (2 sources) Start : 10-23 End: 01-09 Tirzepatide (Mounjaro) 10 mg/0.5 mL pen injector Discontinued 10 mg SC EVERY WEEK 2 2 October 23, 2022 12:00am January 09, 2023 7:34am Diabetes mellitus Type 2 diabetes mellitus without complications Tirzepatide (Mounjaro) 12.5 mg/0.5 mL pen injector (5 sources) Start : 11-26 End: 03-29 Tirzepatide (Mounjaro) 12.5 mg/0.5 mL pen injector Discontinued 12.5 mg SC EVERY WEEK 6 November 26, 2022 12:00am March 29, 2023 12:56pm Start: 09-15-2022 End: 10-23-2022 Tirzepatide (Mounjaro) 12.5 mg/0.5 mL pen injector Discontinued 12.5 mg SC EVERY WEEK 6 September 15, 2022 12:00am October 23, 2022 10:06am Start: 09-15-2022 Tirzepatide (M ounjaro) 12.5 mg/0.5 mL pen injector Active 12.5 MG SC EVERY WEEK September 15, 2022 12:00am tirzepatide (MOUNJARO) 12.5 mg/0.5 mL pen injector (1 source) Start: 02-05-2023 inject 12.5 mg by subcutaneous injection every week tirzepatide (MOUNJARO) 12.5 mg/0.5 mL pen injector Inject 12.5 mg subcutaneously one time a week. 0 02/05/2023 Active Comment on above: Inject 12.5 mg subcutaneously one time a week. Tirzepatide (Mounjaro) 5 mg/0.5 mL pen injector (5 sources) Start: 05-03-2022 End: 05-11-2022 Tirzepatide (Mounjaro) 5 mg/0.5 mL pen injector Discontinued 5 mg SC EVERY WEEK 2 3 May 03, 2022 1:00am May 11, 2022 9:10am Diabetes mellitus Type 2 diabetes mellitus with hyperglycemia Start: 05-03-2022 End: 05-11-2022 Tirzepatide (Mounjaro) 5 mg/ 0.5 mL pen injector Discontinued 5 MG SC EVERY WEEK 2 May 03, 2022 1:00am May 11, 2022 9:10am Start: 05-03-2022 End: 05-11-2022 Tirzepatide (Mounjaro) 5 mg/ 0.5 mL pen injector Discontinued 5 MG SC EVERY WEEK 2 May 03, 2022 12:00am May 11, 2022 8:10am Problems Active Problems Problem Classification Problem Date Documented Date Episodic/Chronic Acute and unspecified renal failure (8 sources) Acute injury of kidney; Translations: [Acute kidney failure, unspecified] Episodic Acute myocardial infarction (20 sources) Myocardial infarction; Translations: [Non-ST elevation (NSTEMI) myocardial infarction] Onset: 06-04-2021 06-12-2021 Chronic Cancer of prostate (20 sources) Malignant tumor of prostate; Translations: [Malignant neoplasm of prostate] Onset: 02-21-2021 02-21-2021 Chronic Congestive heart failure; nonhypertensive (20 sources) Chronic systolic heart failure; Translations: [Chronic systolic (congestive) heart failure] Onset: 05-22-2023 05-22-2023 Chronic Coronary atherosclerosis and other heart disease (20 sources) Coronary atherosclerosis; Translations: [Atherosclerotic heart disease of [place] coronary artery without angina pectoris] Onset: 05-22-2023 Chronic Deficiency and other anemia (1 source) Iron deficiency anemia; Translations: [Iron deficiency anemia, unspecified] Episodic Diabetes mellitus with complications (1 source) Type 2 diabetes mellitus with other specified complication; Translations: [Type 2 diabetes mellitus with other specified complication, without long-term current use of insulin (HCC)] Onset: 05-22-2024 Chronic Diabetes mellitus without complication (20 sources) Type 2 diabetes mellitus; Translations: [Type 2 diabetes mellitus without complications] Onset: 06-20-2021 06-20-2021 Chronic Disorders of lipid metabolism (20 sources) Hyperlipidemia; Translations: [Hyperlipidemia, unspecified] Onset: 12-02-2021 Chronic Essential hypertension (20 sources) Hypertensive disorder; Translations: [Essential (primary) hypertension] Onset: 05-20-2024 11-20-2023 Chronic Genitourinary symptoms and ill-defined conditions (20 sources) Kip hematuria; Translations: [Gross hematuria] Onset: 09-20-2020 09-20-2020 Episodic Heart valve disorders (20 sources) Aortic valve disorder; Translations: [Nonrheumatic aortic valve disorder, unspecified] Onset: 05-22-2023 Chronic Immunizations and screening for infectious disease (1 source) Vaccination needed; Translations: [Encounter for immunization] 03-24-2024 Episodic Inflammatory conditions of male genital organs (5 sources) Abscess of scrotum; Translations: [Inflammatory disorders of scrotum] Episodic Nonspecific chest pain (20 sources) Chest pain; Translations: [Chest pain, unspecified] Episodic Open wounds of extremities (2 sources) Avulsion of skin; Translations: [Unspecified open wound of unspecified toe(s) without damage to nail, initial encounter] 05-28-2023 Episodic Other and unspecified benign neoplasm (2 sources) History of polyp of colon; Translations: [History of colonic polyps] 10-03-2024 Episodic Other circulatory disease (5 sources) Elevated blood pressure; Translations: [Elevated blood-pressure reading, without diagnosis of hypertension] 05-01-2022 Episodic Other circulatory disease (4 sources) Elevated blood-pressure reading, without diagnosis of hypertension; Translations: [Elevated blood pressure reading without diagnosis of hypertension] 04-26-2022 Episodic Other connective tissue disease (15 sources) Tendinitis of extensor tendon of right hand; Translations: [Other enthesopathies, not elsewhere classified] 12-18-2020 Episodic Other connective tissue disease (1 source) Trochanteric bursitis of left hip; Translations: [Trochanteric bursitis, left hip] Episodic Other connective tissue disease (1 source) Clicking knee; Translations: [Other symptoms and signs involving the musculoskeletal system] Episodic Other diseases of kidney and ureters (5 sources) Renal impairment; Translations: [Disorder of kidney and ureter, unspecified] 01-02-2022 Episodic Other lower respiratory disease (1 source) Multiple nodules of lung; Translations: [Other nonspecific abnormal finding of lung field] Episodic Other lower respiratory disease (1 source) Nodule of lung; Translations: [Solitary pulmonary nodule] Episodic Other non-traumatic joint disorders (1 source) Other specific arthropathies, not elsewhere classified, left shoulder; Translations: [Other specific arthropathies, not elsewhere classified, left shoulder] Onset: 12-26-2024 Chronic Other non-traumatic joint disorders (1 source) Pain in right knee; Translations: [Pain in joint, lower leg] 05-22-2023 Episodic Other nutritional; endocrine; and metabolic disorders (20 sources) Obese class II; Translations: [Obesity, unspecified] Onset: 06-20-2021 06-20-2021 Chronic Other nutritional; endocrine; and metabolic disorders (13 sources) Body mass index 30+ - obesity; Translations: [Obesity, unspecified] 08-15-2021 Chronic Other nutritional; endocrine; and metabolic disorders (9 sources) Obesity, unspecified; Translations: [Obesity, unspecified] Chronic Other screening for suspected conditions (not mental disorders or infectious disease) (1 source) Abnormal findings on diagnostic imaging of other specified body structures; Translations: [Abnormal findings on diagnostic imaging of other specified body structures] Onset: 01-25-2024 Chronic Other screening for suspected conditions (not mental disorders or infectious disease) (20 sources) Cardiovascular stress test abnormal; Translations: [Abnormal result of other cardiovascular function study] Onset: 01-25-2024 Episodic Other skin disorders (1 source) Scrotal mass; Translations: [Follicular cyst of the skin and subcutaneous tissue, unspecified] Episodic Jess-; endo-; and myocarditis; cardiomyopathy (except that caused by tuberculosis or sexually transmitted disease) (20 sources) Cardiomyopathy; Translations: [Cardiomyopathy, unspecified] Chronic Skin and subcutaneous tissue infections (2 sources) Cellulitis of face; Translations: [Cellulitis of face] 11-14-2022 Episodic Syncope (2 sources) Syncope; Translations: [Syncope and collapse] 12-29-2024 Episodic Unclassified (2 sources) Patient encounter status 10-02-2024 Unclassified (1 source) History of colonic polyps; Translations: [History of colonic polyps] Onset: 10-03-2024 Past or Other Problems Problem Classification Problem Date Documented Date Episodic/Chronic Abdominal hernia (7 sources) Disorder of abdominal wall; Translations: [Ventral hernia without obstruction or gangrene] Onset: 04-02-20 24 03-24-2024 Episodic Cancer of prostate (16 sources) History of malignant neoplasm of prostate; Translations: [Personal history of malignant neoplasm of prostate] Onset: 05-20-1905-20-2024 Episodic Coronary atherosclerosis and other heart disease (14 sources) Presence of aortocoronary bypass graft; Translations: [Aortocoronary bypass status] Onset: 05-17-19 Episodic Diabetes mellitus without complication (20 sources) Prediabetes; Translations: [Prediabetes] Onset: 05-25-19 18 05-25-2017 Episodic Infective arthritis and osteomyelitis (except that caused by tuberculosis or sexually transmitted disease) (20 sources) Reactive arthritis triad; 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, right ankle and foot] Onset: 12-07-19 Resolved : 11-19-19 23 12-06-2018 Episodic Malaise and fatigue (20 sources) Asthenia; Translations: [Weakness] Onset: 06-04-19 22 06-13-2021 Episodic Other aftercare (1 source) supervisor matrix (current) use of insulin; Translations: [Type 2 diabetes mellitus without complication, with long-term current use of insulin (HCC)] Onset: 05-19-19 Episodic Other and unspecified benign neoplasm (20 sources) Benign neoplasm of skin of trunk; Translations: [Other benign neoplasm of skin of trunk] Onset: 07-07-19 09 07-06-2008 Episodic Other and unspecified benign neoplasm (20 sources) Benign tumor of head and neck; Translations: [Other benign neoplasm of skin of scalp and neck] Onset: 09-04-19 09 09-03-2008 Episodic Other and unspecified benign neoplasm (1 source) Melanocytic nevi, unspecified; Translations: [Multiple benign nevi] Onset: 08-09-19 Episodic Other and unspecified benign neoplasm (1 source) Hemangioma of skin and subcutaneous tissue; Translations: [Simental angioma] Onset: 08-09-19 Episodic Other lower respiratory disease (15 sources) Snoring; Translations: [Snoring] Onset: 05-20-1905-20-2024 Episodic Other non-epithelial cancer of skin (20 sources) Squamous cell carcinoma of skin; Translations: [Squamous cell carcinoma of skin, unspecified] Onset: 05-20-1905-20-2024 Episodic Other nutritional; endocrine; and metabolic disorders (20 sources) Body mass index 40+ - severely obese; Translations: [Morbid (severe) obesity due to excess calories] Onset: 08-23-19 Resolved : 12-07-19 19 12-06-2018 Chronic Other nutritional; endocrine; and metabolic disorders (15 sources) Morbid obesity; Translations: [Morbid (severe) obesity due to excess calories] Onset: 05-20-19 Resolved : 05-22-1905-20-2024 Chronic Other skin disorders (20 sources) Sebaceous cyst of skin; Translations: [Sebaceous cyst] Onset: 07-07-19 09 07-06-2008 Episodic Other skin disorders (1 source) Inflamed seborrheic keratosis; Translations: [Inflamed seborrheic keratosis] Onset: 08-09-19 Episodic Other skin disorders (1 source) Other seborrheic keratosis; Translations: [Seborrheic keratosis] Onset: 08-09-19 Episodic Other skin disorders (1 source) Other melanin hyperpigmentation; Translations: [Lentigines] Onset: 08-09-19 Episodic Residual codes; unclassified (15 sources) History of cardiac catheterization; Translations: [Other specified postprocedural states] Onset: 05-17-1906-02-2021 Episodic Comment on above: LEFT MAIN: Mild calc ification; LEFT ANTERIOR DESCENDING ARTERY: PROX LAD: Mild calcification, MID LAD: Mild calcification, 85 % stenosis followed by 95 % stenosis followed by 85 % Stenosis; CIRCUMFLEX ARTERY: Mild luminal irregularities; PROX CIRC: Mild calcification; MID CIRC: 95 % Stenosis; RAMUS: ostial: 75 % Stenosis; RIGHT CORONARY ARTERY: PROX RCA: is occludedRT PDA: Proximal - fills late and partially from right to right collateral flow; RECOMMENDATIONS: Surgery consult for coronary revascularizationSurgery consult for valvular disease per cardiac cath 06/02/21 Screening and history of mental health and substance abuse codes (18 sources) Tobacco smoking behavior - finding; Translations: [Personal history of nicotine dependence] Onset: 05-20-19 25 09-12-2023 Episodic Results Test Name Value Interpretation Reference Range Facility Absolute lymphocyte countOrd ered By: Zoya Rodriguez on 12-29-2024 Lymphocytes Auto (Unsp spec) [#/Vol] 0.66 10*3/uL Low 0.83-4.51 [facility] Absolute neutrophil countOrd ered By: Zoya Rodriguez on 12-29-2024 Neutrophils (Bld) [#/Vol] 7.2 10*3/uL 2.0-7.7 [facility] Activated partial thrombopla stin time (aPTT) in platelet poor plasma by coagulation aOrdered By: Zoya Rodriguez on 12-29-2024 aPTT Coag (PPP) [Time] 26.1 s 24.1-36.2 [facility] Anion gap in Serum or Plasma Ordered By: Zoya Rodriguez on 12-29-2024 Anion gap [Moles/Vol] 14 mmol/L 5-15 [facility] Automated lymphocyte count a s percentage of total leukocytesOrdered By: Zoya Rodriguez on 12-29-2024 Lymphocytes/100 WBC Auto (Unsp spec) 7.8 % Low 19-41 [facility] BUN/creatinine ratioOrdered By: Zoya Rodriguez on 12-29-2024 Urea nitrogen/Creatinine [Mass ratio] 25.1 mg/mg High 10-20 [facility] Basophil percentageOrdered B y: Zoya Rodriguez on 12-29-2024 Basophils/100 WBC (Bld) 0.4 % 0-1 [facility] Carbon dioxide, total [Moles /volume] in Central venous bloodOrdered By: Zoya Rodriguez on 12-29-2024 CO2 [Moles/Vol] 20.8 mmol/L Low 21.0-32.0 [facility] Chloride assayOrdered By: Alberto Rodriguez on 12-29-2024 Chloride [Moles/Vol] 106 mmol/L 98-108 [facility] Eosinophil percentageOrdered By: Zoya Rodriguez on 12-29-2024 Eosinophils/100 WBC (Bld) 0.6 % 0-5 [facility] Erythrocyte distribution wid th ratioOrdered By: Zoyasanti Rodriguez on 12-29-2024 Erythrocyte distribution width (RBC) [Ratio] 12.7 % 11.6-14.6 [facility] Erythrocyte distribution wid th standard deviationOrdered By: Zoyasanti Rodriguez on 12-29-2024 Erythrocyte distribution width (RBC) [Ratio] 41.1 fl 35.1-43.9 [facility] Glomerular filtration rate ( GFR) estimation/1.73 sq m using serum, plasma, or whole bOrdered By: Zoyasanti Rodriguez on 12-29-2024 GFR/1.73 sq M.predicted among non-blacks MDRD (S/P/Bld) [Vol rate/Area] 92 mL/min/{1.73_m2} >60 [facility] Comment on above: mL/min/1.73m2 CKD-EP I Creatinine Equation (2020) Hematocrit Auto (Bld) [Volum e fraction]Ordered By: Zoya Rodriguez on 12-29-2024 Hematocrit (Bld) [Volume fraction] 41.0 % 40-54 [facility] Hemoglobin measurementOrdere d By: Zoya Rodriguez on 12-29-2024 Hemoglobin (Bld) [Mass/Vol] 13.7 g/dL 13.0-16.5 [facility] Immature granulocytes/100 WB C Auto (Bld)Ordered By: Zoya Rodriguez on 12-29-2024 Immature granulocytes/100 WBC (Bld) 0.400 % 0.0-0.9 [facility] Comment on above: IG% - Immature Granu locytes (promyelocytes, myelocytes and metamyelocytes) > 1% indicates that a LEFT SHIFT is Present. International normalized rat io (INR) calculationOrdered By: Zoya Rodriguez on 12-29-2024 INR Coag (Bld) [Relative time] 1.0 {INR} [facility] MCV (mean corpuscular volume ) determinationOrdered By: Zoyasanti Rodriguez on 12-29-2024 MCV (RBC) [Entitic vol] 88.4 fL 80-94 [facility] Magnesium measurement (mass/ volume)Ordered By: Zoya Rodriguez on 12-29-2024 Magnesium (Unsp spec) [Mass/Vol] 2.0 mg/dL 1.5-2.2 [facility] Mean corpuscular hemoglobin (MCH) determinationOrdered By: Zoya Rodriguez on 12-29-2024 MCH (RBC) [Entitic mass] 29.5 pg 27.0-32.0 [facility] Mean corpuscular hemoglobin concentration (MCHC) determinationOrdered By: Zoya Rodriguez on 12-29-2024 MCHC (RBC) [Mass/Vol] 33.4 g/dL 32-36 [facility] Mean platelet volume determi nationOrdered By: Zoya Rodriguez on 12-29-2024 Platelet mean volume (Bld) [Entitic vol] 9.9 fL 6.2-12.0 [facility] Monocyte percentageOrdered B y: Zoya Rodriguez on 12-29-2024 Monocytes/100 WBC (Bld) 4.8 % 0-10 [facility] Neutrophil percentageOrdered By: Zoya Rodriguez on 12-29-2024 Neutrophils/100 WBC (Bld) 86.0 % High 47-70 [facility] Nucleated red blood cell per centageOrdered By: Zoya Rodriguez on 12-29-2024 Nucleated RBC/100 WBC (Bld) [Ratio] 0 % 0-5 [facility] Platelet countOrdered By: Alberto Rodriguez on 12-29-2024 Platelets (Bld) [#/Vol] 189 10*3/uL 150-450 [facility] Potassium measurement (mass/ volume)Ordered By: Zoya Rodriguez on 12-29-2024 Potassium (Unsp spec) [Mass/Vol] 4.3 mmol/L 3.3-5.1 [facility] Comment on above: Hemolysis present, R esults could be affected. Prothrombin timeOrdered By: Zoya Rodriguez on 12-29-2024 PT Coag (PPP) [Time] 13.7 s 11.7-14.9 [facility] RBC Auto (Bld) [#/Vol]Ordere d By: Zoya Rodriguez on 12-29-2024 RBC (Bld) [#/Vol] 4.64 10*6/uL 4.6-6.2 [facility] Serum creatinine measurement (mass/volume)Ordered By: Zoya Rodriguez on 12-29-2024 Creatinine [Mass/Vol] 0.84 mg/dL 0.70-1.20 [facility] Serum glucose measurement (m ass/volume)Ordered By: Zoya Rodriguez on 12-29-2024 Glucose [Mass/Vol] 112 mg/dL High 70-99 [facility] Serum or plasma calcium sally urement (mass/volume)Ordered By: Zoya Rodriguez on 12-29-2024 Calcium [Mass/Vol] 9.3 mg/dL 7.6-11.0 [facility] Serum or plasma urea nitroge n measurement (mass/volume)Ordered By: Zoya Rodriguez on 12-29-2024 Urea nitrogen [Mass/Vol] 21 mg/dL High 4-19 [facility] Sodium levelOrdered By: Allan Rodriguez on 12-29-2024 Sodium [Moles/Vol] 141 mmol/L 133-145 [facility] TSH DL <= 0.005 mIU/L QnOrde red By: Zoya Rodriguez on 12-29-2024 TSH Qn 1.490 uIU/mL 0.300-4.200 [facility] Troponin T.cardiac [Mass/vol ume] in Serum or Plasma by High sensitivity methodOrdered By: Zoya Rodriguez on 12-29-2024 Troponin T.cardiac High sensitivity method [Mass/Vol] 58 ng/L High <22 [facility] Comment on above: Critical Result(s) C alled at 1519 12/29/2024: by: NIRAJ CESPEDES Results read back by same. White blood cell (WBC) count Ordered By: Zoya Rodriguez on 12-29-2024 WBC (Bld) [#/Vol] 8.4 10*3/uL 4.4-11.0 [facility] PT D/C Summary (1)on 025 PT D/C Summary (1) [facility] Physical Therapy Health[address] [place] [address] / REHABILITATION SERVICES DISCHARGE SUMMARY MR#: [id number] Acct: [id number] Name: REGINALD VAUGHN Rep #: [id number] 13 : 1950 74 From: Allan Willson DPT, OCS, CSCS Referring Dr.: Dr. Jose Plascencia MD Status: RE G RCR Insurance: MEDICARE PART A B [facility] Discharge Summary D/C summary: It has been my pleasure to treat REGINALD VAUGHN referred by Dr. Jose Plascencia MD, with the diagnosis of RCT, prehab for 01/19 reverse TSA for a total of 14 visit(s). Discharge Date: 12/26/24 Please see the following information for a summary of their discharge status. Subjective Subjective: Doing exercises at home. Overhead ex with function was painful in forearm at first but got better. Pain is minimal. Times it hurts in am if sleeps on it wrong. 09/23 at times if he lifts somethings. Sleep is OK. HEP : ready for TSA, will continue. Pain L shoulder: Pain Intensity (Out of 10): 0 Overall Improvement % Improvement: 50 Objective Objective/Function: 150 AROM fleexion L arm, Nil er, IR comfortable to L4. strength er Nil, IR 4, bi and tri 4+, flexion 4- L and compensates with scap elevation with flexion adn abduction. Good scap mobility. Goals Goal 1:: I appropriate HEP for ROM and strength uppr half leading to surgery Goal Progress: Goal Met Goal 2:: AROM 5 er L and 155 elevation without pain Goal Progress: flexion yes, er no Goal 3:: pt feel prepared for rev TSA in January. Goal Progress: Goal Met Plan Plan: d/c, pt to continue via HEP until surgery. D/C Information Discharge Comments: F/u post surgically when ordered. d/c sentence: If there are questions or concerns regarding this patient's physical therapy, please feel free to call me at [phone]. Thank you for the referral of this patient. Sincerely, Allan Willson DPT, OCS, CSCS Balance/Gait/Functional tests Balance/Special Test Scores Quick DASH Score: 27.2725 Improvement % Improvement: 50 12/26/24 0946 CC: Dr. Jose Plascencia MD; Dr. Dixon Valadez MD EBG Signed Normal [facility] CBC panel Auto (Bld)on 11-21 Erythrocyte distribution width (RBC) [Ratio] 12.8 % Normal 11.5-15.0 [facility] Comment on above: Order Comment: Speci men Type: BLOOD SPECIMENOrdering Facility: [facility] Address: [address] [place] [address] Performed By: #### 5 8410-2 ####[facility] LABIA [id number] [place] [address] [place] Hematocrit (Bld) [Volume fraction] 41.3 % Normal 39.0-51.0 [facility] Comment on above: Order Comment: Speci men Type: BLOOD SPECIMENOrdering Facility: [facility] Address: [address] [place] [address] Performed By: #### 5 8410-2 ####[facility] LABIA [id number] [place] [address] [place] Hemoglobin (Bld) [Mass/Vol] 13.7 g/dL Normal 13.0-17.0 [facility] Comment on above: Order Comment: Speci men Type: BLOOD SPECIMENOrdering Facility: [facility] Address: [address] [place] [address] Performed By: #### 5 8410-2 ####[facility] LABIA [id number] [place] [address] [place] MCH (RBC) [Entitic mass] 30.0 pg Normal 26.0-34.0 [facility] Comment on above: Order Comment: Speci men Type: BLOOD SPECIMENOrdering Facility: [facility] Address: [address] [place] [address] Performed By: #### 5 8410-2 ####[facility] LABIA [id number] [place] [address] [place] MCHC (RBC) [Mass/Vol] 33.2 g/dL Normal 30.5-36.0 [facility] Comment on above: Order Comment: Speci men Type: BLOOD SPECIMENOrdering Facility: [facility] Address: [address] [place] [address] Performed By: #### 5 8410-2 ####[facility] LABCLIA [id number] [facility] [place] [address] [place] MCV (RBC) [Entitic vol] 90.4 fL Normal 80.0-100.0 [facility] Comment on above: Order Comment: Speci men Type: BLOOD SPECIMENOrdering Facility: [facility] Address: [address] [place] [address] Performed By: #### 5 8410-2 ####[facility] LABIA [id number] [place] [address] [place] Nucleated RBC (Bld) [#/Vol] 10*3/uL Normal <0.01 [facility] Comment on above: Order Comment: Speci men Type: BLOOD SPECIMENOrdering Facility: [facility] Address: [address] [place] [address] Performed By: #### 5 8410-2 ####[facility] LABIA [id number] [place] [address] [place] Platelet mean volume (Bld) [Entitic vol] 10.4 fL Normal 9.0-12.7 [facility] Comment on above: Order Comment: Speci men Type: BLOOD SPECIMENOrdering Facility: [facility] Address: [address] [place] [address] Performed By: #### 5 8410-2 ####[facility] LABCLIA [id number] [place] [address] [place] Platelets (Bld) [#/Vol] 200 10*3/uL Normal 150-400 [facility] Comment on above: Order Comment: Speci men Type: BLOOD SPECIMENOrdering Facility: [facility] Address: [address] [place] [address] Performed By: #### 5 8410-2 ####[facility] LABCLIA [id number] [place] [address] [place] RBC (Bld) [#/Vol] 4.57 10*6/uL Normal 4.20-6.00 [facility] Comment on above: Order Comment: Speci men Type: BLOOD SPECIMENOrdering Facility: [facility] Address: [address] [place] [address] Performed By: #### 5 8410-2 ####[facility] LABIA [id number] [place] [address] [place] WBC (Bld) [#/Vol] 6.73 10*3/uL Normal 3.70-11.00 [facility] Comment on above: Order Comment: Speci men Type: BLOOD SPECIMENOrdering Facility: [facility] Address: [address] [place] [address] Performed By: #### 5 8410-2 ####[facility] LABIA [id number] [place] [address] [place] Comprehensive metabolic 2000 panelon 11-21-2024 Albumin [Mass/Vol] 4.1 g/dL Normal 3.9-4.9 [facility] Comment on above: Order Comment: Speci men Type: BLOOD SPECIMENOrdering Facility: [facility] Address: [address] [place] [address] Performed By: #### 2 4323-8, 90830-3 ####[facility] LABIA [id number] [place] [address] [place] ALP [Catalytic activity/Vol] 82 U/L Normal 38-113 [facility] Comment on above: Order Comment: Speci men Type: BLOOD SPECIMENOrdering Facility: [facility] Address: [address] [place] [address] Performed By: #### 2 4323-8, 29357-1 ####[facility] LABCLIA [id number] [facility] [place] [place] [address] [place] ALT [Catalytic activity/Vol] 21 U/L Normal 10-54 [facility] Comment on above: Order Comment: Speci men Type: BLOOD SPECIMENOrdering Facility: [facility] Address: [address] [place] [address] Performed By: #### 2 432-8, 80294-1 ####[facility] LABCLIA [id number] [facility] [address] [place] [address] [place] Anion gap [Moles/Vol] 15 mmol/L Normal 8-15 [facility] Comment on above: Order Comment: Speci men Type: BLOOD SPECIMENOrdering Facility: [facility] Address: [address] [place] [address] Performed By: #### 2 4323-8, 18685-0 ####[facility] LABCLIA [id number] [facility] [address], [facility] [place] AST [Catalytic activity/Vol] 50 U/L High 14-40 [facility] Comment on above: Order Comment: Speci men Type: BLOOD SPECIMENOrdering Facility: [facility] Address: [address] [place] [address] Performed By: #### 2 4323-8, 05942-1 ####[facility] LABCLIA [id number] [address], [facility] [place] Bilirubin [Mass/Vol] 0.5 mg/dL Normal 0.2-1.3 [facility] Comment on above: Order Comment: Speci men Type: BLOOD SPECIMENOrdering Facility: [facility] Address: [address] [place], [place] [address] Performed By: #### 2 4323-8, 69378-0 ####[facility] LABCLIA [id number] [facility] [address] [place] [address] [place] Calcium [Mass/Vol] 9.5 mg/dL Normal 8.5-10.2 [facility] Comment on above: Order Comment: Speci men Type: BLOOD SPECIMENOrdering Facility: [facility] Address: [address] [place] [address] Performed By: #### 2 4323-8, 15803-8 ####[facility] LABCLIA [id number] [facility] [address] [address] [place] Chloride [Moles/Vol] 104 mmol/L Normal 98-107 [facility] Comment on above: Order Comment: Speci men Type: BLOOD SPECIMENOrdering Facility: [facility] Address: [address] [place] [address] Performed By: #### 2 4323-8, 47114-1 ####[facility] LABCLIA [id number] [place] [address] [place] CO2 [Moles/Vol] 22 mmol/L Normal 22-30 [facility] Comment on above: Order Comment: Speci men Type: BLOOD SPECIMENOrdering Facility: [facility] Address: [address] [place] [address] Performed By: #### 2 4323-8, 00363-6 ####[facility] LABCLIA [id number] [address] [address] [place] Creatinine [Mass/Vol] 0.76 mg/dL Normal 0.73-1.22 [facility] Comment on above: Order Comment: Speci men Type: BLOOD SPECIMENOrdering Facility: [facility] Address: [address] [place], [place] [address] Performed By: #### 2 4323-8, 02064-3 ####[facility] LABCLIA [id number] [address] [address] [place] eGFRcr SerPlBld CKD-EPI 2020 94 mL/min/1.73m??? Normal >=60 [facility] Comment on above: Order Comment: Speci men Type: BLOOD SPECIMENOrdering Facility: [facility] Address: [address] [place] [address] Result Comment: Rmoy mated Glomerular Filtration Rate (eGFR) is calculated using the 2020 CKD-EPI creatinine equation. This equation utilizes serum creatinine, sex, and age as parameters. The creatinine assay has traceable calibration to isotope dilution-mass spectrometry. Refer to KDIGO guidelines for clinical interpretation. In patients with unstable renal function, e.g. those with acute kidney injury, the eGFR may not accurately reflect actual GFR. Performed By: #### 2 4323-8, 82814-6 ####[facility] [id number] [place] [address] [place] Glucose [Mass/Vol] 87 mg/dL Normal 74-99 [facility] Comment on above: Order Comment: Kelechi knight Type: BLOOD SPECIMENOrdering Facility: [facility] Address: [address] [place] [address] Result Comment: The [place] Diabetes Association (ADA) provides guidance for cutoff values for fasting glucose and random glucose. The ADA defines fasting as no caloric intake for at least 8 hours. Fasting plasma glucose results between 100 to 125 mg/dL indicate increased risk for diabetes (prediabetes). Fasting plasma glucose results greater than or equal to 126 mg/dL meet the criteria for diagnosis of diabetes. In the absence of unequivocal hyperglycemia, results should be confirmed by repeat testing. In a patient with classic symptoms of hyperglycemia or hyperglycemic crisis, random plasma glucose results greater than or equal to 200 mg/dL meet the criteria for diagnosis of diabetes. Reference: Standards of Medical Care in Diabetes 2016, [place] Diabetes Association. Diabetes Care. 2016.39(Suppl 1). Performed By: #### 2 4323-8, 96329-6 ####[facility] [id number] [place] [address] [place] Potassium [Moles/Vol] 4.2 mmol/L Normal 3.7-5.1 [facility] Comment on above: Order Comment: [facility] Type: BLOOD SPECIMENOrdering Facility: [facility] Address: [address] [place] [address] Performed By: #### 2 4323-8, 09051-1 ####[facility] LABCLIA [id number] [address] [address] [place] Protein [Mass/Vol] 6.6 g/dL Normal 6.3-8.0 [facility] Comment on above: Order Comment: Speci men Type: BLOOD SPECIMENOrdering Facility: [facility] Address: [address] [place] [address] Performed By: #### 2 4323-8, 57971-0 ####[facility] LABIA [id number] [place] [address] [place] Sodium [Moles/Vol] 141 mmol/L Normal 136-144 [facility] Comment on above: Order Comment: Speci men Type: BLOOD SPECIMENOrdering Facility: [facility] Address: [address] [place] [address] Performed By: #### 2 4323-8, 79289-7 ####[facility] LABIA [id number] [place] [address] [place] Urea nitrogen [Mass/Vol] 17 mg/dL Normal 9-24 [facility] Comment on above: Order Comment: Speci men Type: BLOOD SPECIMENOrdering Facility: [facility] Address: [address] [place] [address] Performed By: #### 2 4323-8, 05460-7 ####[facility]IA [id number] [address] [address] [place] HbA1c (Bld)on 11-21-2024 Average glucose Estimated from glycated hemoglobin (Bld) [Mass/Vol] 100 mg/dL Normal [facility] Comment on above: Order Comment: Speci men Type: BLOOD SPECIMENOrdering Facility: [facility] Address: [address] [place] [address] Result Comment: eAG: (Estimated average glucose) is a calculated value from HgbA1c and is employment representative of the average blood glucose level in the last 2-3 month period. Performed By: #### 5 5454-3 ####[facility] LABCLIA [id number] [place] [address] [place] HbA1c (Bld) [Mass fraction] 5.1 % Normal 4.3-5.6 [facility] Comment on above: Order Comment: Speci men Type: BLOOD SPECIMENOrdering Facility: [facility] Address: [address] [place] [address] Result Comment: [place] Diabetes Association guidelines indicate that patients with HgbA1c in the range 5.7-6.4% are at increased risk for development of diabetes, and intervention by lifestyle modification may be beneficial. HgbA1c greater or equal to 6.5% is considered diagnostic of diabetes. Performed By: #### 5 5454-3 ####[facility] LABIA [id number] [place] [address] [place] Lipid 1996 panelon 5 Cholesterol [Mass/Vol] 146 mg/dL Normal <200 [facility] Comment on above: Order Comment: Kelechi knight Type: BLOOD SPECIMENOrdering Facility: [facility] Address: [address] [place] [address] Result Comment: <200 mg/dL, Desirable 200-239 mg/dL, Borderline high >239 mg/dL, High Performed By: #### 2 4323-8, 92654-0 ####[facility] LABIA [id number] [address] OF [facility] Cholesterol in HDL [Mass/Vol] 44 mg/dL Normal >39 [facility] Comment on above: Order Comment: Kelechi knight Type: BLOOD SPECIMENOrdering Facility: [facility] Address: [address] [place] [address] Result Comment: 40-5 9 mg/dL, Acceptable >59 mg/dL, High: Negative risk factor for coronary heart disease <40 mg/dL, Low: Positive risk factor for coronary heart disease Performed By: #### 2 4323-8, 78096-8 ####[facility] LABCLIA [id number] [address] [address] [place] Cholesterol in LDL [Mass/Vol] 84 mg/dL Normal <100 [facility] Comment on above: Order Comment: Speci men Type: BLOOD SPECIMENOrdering Facility: [facility] Address: [address] [place] [address] Result Comment: <100 mg/dL, Optimal 100-129 mg/dL, Near optimal/above optimal 130-159 mg/dL, Borderline high 160-189 mg/dL, High >189 mg/dL, Very high Secondary prevention optimal LDL Cholesterol levels are recommended to be <70 mg/dL LDL cholesterol is calculated using the Barrientos-NIH equation. Performed By: #### 2 4323-8, 83723-5 ####[facility] [id number] [place] [address] [place] Cholesterol in LDL/Cholesterol in HDL [Mass ratio] 1.91 {ratio} Normal <2.54 [facility] Comment on above: Order Comment: Speci men Type: BLOOD SPECIMENOrdering Facility: [facility] Address: [address] [place] [address] Result Comment: Lela johnston: 1. National Cholesterol Education Program ATP III Guideline At-A-Glance Quick Desk Reference: National Heart, Lung, and Blood [place]. National Institutes of Health. 2001: NIH Publication No. 01-3305. 2. An International Atherosclerosis Society position paper: global recommendations for the management of dyslipidemia: executive summary, Atherosclerosis. 2014: 232(2):410-413. Performed By: #### 2 4323-8, ####[facility]IA [id number] [place] [address] [place] Cholesterol in VLDL [Mass/Vol] 15 mg/dL Normal <30 [facility] Comment on above: Order Comment: Speci men Type: BLOOD SPECIMENOrdering Facility: [facility] Address: [address] [place] [address] Performed By: #### 2 4323-8, ####[facility] LABCLIA [id number] [facility] [id number] [place] [address] [place] Cholesterol non HDL [Mass/Vol] 102 mg/dL Normal <130 [facility] Comment on above: Order Comment: Speci men Type: BLOOD SPECIMENOrdering Facility: [facility] Address: [address] [place] [id number] Result Comment: <130 mg/dL, Optimal 130-159 mg/dL, Near optimal/above optimal 160-189 mg/dL, Borderline high 190-219 mg/dL, High >219 mg/dL, Very high Secondary prevention optimal non HDL Cholesterol levels are recommended to be <100 mg/dL Performed By: #### 2 4323-8, ####[facility] LABCLIA [id number] [address] [address] [place] Cholesterol.total/Chol esterol in HDL [Mass ratio] 3.32 {ratio} Normal <5.10 [facility] Comment on above: Order Comment: Speci men Type: BLOOD SPECIMENOrdering Facility: [facility] Address: [address] [place] [id number] Performed By: #### 2 4323-8, ####[facility] LABCLIA [id number] [place] [address] [place] FASTING TIME 12 hrs Normal [facility] Comment on above: Order Comment: Speci men Type: BLOOD SPECIMENOrdering Facility: [facility] Address: [address] [place] [id number] Performed By: #### 2 4323-8, ####[facility] LABCLIA [id number] [place] [address] [place] Triglyceride [Mass/Vol] 94 mg/dL Normal <150 [facility] Comment on above: Order Comment: Speci men Type: BLOOD SPECIMENOrdering Facility: [facility] Address: [address] [place] [id number] Result Comment: <150 mg/dL, Normal 150-199 mg/dL, Borderline high 200-499 mg/dL, High >499 mg/dL, Very high Performed By: #### 2 4323-8, 04083-8 ####[facility] LABCLIA [id number] [place] [id number] [place] [facility] CNOVon 11-20-2024 CNOV Office Visit (FAMPWS ) -- REGINALD VAUGHN ([id number]) 1950 M Date Time Provider Department 11/20/24 9:00 AM [facility] During your visit today, we recorded the following information about you: Pulse Respiration Blood pressure Weight 72/minute 16/minute 126/74 108.2 kg Dixon Valadez MD 11/20/2024 9:22 AM Signed Chief Complaint Patient presents with: F/U 6 months HPI Reginald Vaughn is a 74 year old male who presents here today for 6 month follow up. Pt going to be having left shoulder arthroplasty done in Jan with [facility]. Has been doing PT at [facility] Mon/Wed/Fri for his shoulder. Scheduled for surgery on 01/19/25. Has pre-op form to be completed. No bowel, Gi, or urinary issues. Follows with [facility] Surgery for colonic polyps and colon cancer screenings. Was not able to get the colonoscopy done as he took the mounjaro injection, was not aware or couldn't recall if he was to hold that. This has been rescheduled. Follows with Dr. العراقي, Urologist for hx of prostate cancer. Following with [facility]. Lipids: Cardiac hx of CAD, s/p CABG, and NSTEMI. Follows with Cardiology at [facility]. Also following for aortic stenosis, moderate on last echo. Tries to watch his diet and do some exercises. On current regimen of Plavix 75 mg once daily, Lipitor 40 mg once daily and ASA 81 mg daily. DM: Checks sugars once daily with FBS 100-114. Denies any low blood sugars or neuropathy symptoms. On current regimen of Mounjaro 15 mg once weekly and Metformin XR 500 mg 1 tab po bid. Follows with Dr. Evangelista for routine eye exams. Last A1c on 05/19/24 was normal at 4.7. HTN: Denies monitoring his BP at home or having symptoms of chest pain, sob, or dizziness. Follows with Cardiology at [facility]. On current regimen of Lisinopril 10 mg once daily and Lopressor 50 mg 1 tab po bid. Past medical history, appointments, medications, allergies reviewed. Previous Medical History PAST MEDICAL HISTORY Diagnosis Date Arthritis Basal cell carcinoma (BCC) of skin of lower extremity including hip 05/20/2024 Bladder stones BPH (benign prostatic hyperplasia) CAD (coronary artery disease) Cancer (HCC) skin ca Former smoker 05/20/2024 History of colon polyps 07/24/2013 History of prostate cancer 05/20/2024 HTN (hypertension) 05/20/2024 Mixed hyperlipidemia Morbid obesity (HCC) 05/20/2024 Prostate cancer (HCC) SCCA (squamous cell carcinoma) of skin 05/20/2024 Snoring 05/20/2024 Type 2 diabetes mellitus, without long-term current use of insulin (HCC) 06/20/2021 Previous Surgical History PAST SURGICAL HISTORY Procedure Laterality Date ARTHROSCOPY KNEE DIAGNOSTIC W/WO SYNOVIAL BX SPX Right 1989 Meniscal tear CABG (4) VEIN GRAFTS AND ARTERIAL GRAFT(S) 06/08/2021 COLONOSCOPY FLX DX W/COLLJ SPEC WHEN PFRMD 07/24/2013 Colonoscopy COLONOSCOPY FLX DX W/COLLJ SPEC WHEN PFRMD 09/15/2016 Colonoscopy COLSC FLX W/RMVL OF TUMOR POLYP LESION SNARE TQ 12/30/2019 PAST SURGICAL HISTORY OF Right 2015 repair biceps tendon ROTATOR CUFF REPAIR Left 04/18/2013 Family History FAMILY HISTORY Problem Relation Age of Onset Diabetes Mother Emphysema Father Asbestosis Diabetes Brother Asthma Brother Patient Allergies ALLERGIES Allergen Reactions Ozempic [Semaglutid* Diarrhea Trulicity [Dulaglut* GI Upset Diarrhea Keflex [Cephalexin] Other: See Comments Joint Pain Current Medications Current Outpatient Medications on File Prior to Visit Medication Sig blood sugar diagnostic (FREESTYLE LITE STRIPS) test strip Test blood sugar(s) 3 times daily. Dx: Type 2 DM - Controlled E11.9. Insulin: Yes. tirzepatide (MOUNJARO) 15 mg/0.5 mL pen injector Inject 15 mg subcutaneously one time a week. atorvastatin (LIPITOR) 40 mg tablet Take 1 tablet by mouth once daily. folic acid 1 mg tablet Take 1 tablet by mouth once daily. metFORMIN ER (GLUCOPHAGE XR) 500 mg 24 hr tablet Take 1 tablet by mouth two times a day with meals. metoprolol tartrate, short acting, (LOPRESSOR) 50 mg tablet Take 1 tablet by mouth every 12 hours. Lancets Test blood sugar(s) 3 times daily. Dx: Type 2 DM - Controlled E11.9 Insulin: Yes Lancing Device with Lancets Use with blood glucose test three times a day. Insulin Dep? Yes LISINOPRIL ORAL Take 10 mg by mouth. Blood-Glucose Meter (TRUE METRIX AIR GLUCOSE METER) Test blood sugar(s) 3 times daily. Dx: Type 2 DM - Controlled E11.9 Insulin: Yes Blood Pressure Monitor CHECK vital signs daily or as needed aspirin 81 mg chewable tablet Take 1 tablet by mouth once daily. Take one ASPIRIN daily for life. acetaminophen (TYLENOL) 500 mg tablet Take 2 tablets by mouth four times daily. No current facility-administered medications on file prior to visit. Social History Social History Tobacco Use Smoking status: Former Current p (more content not included)... Normal [facility] 11-13-2024 [facility] Telephone (FAMWS) -- REGINALD VAUGHN ([id number]) 1950 M Date Time Provider Department 11/13/24 [facility] During your visit today, we recorded the following information about you: Sierra Resendez MA 11/13/2024 11:32 AM Signed Type of letter/form/fax request - Pre Op Form Form received from fax on 1 floor and placed on MD desk (Dr. Valadez) for completion. Completed form needs to be faxed to [facility]. Pt scheduled for left reverse total shoulder arthroplasty on 01/19/25. Has pre admission testing on 01/05/25. Pt has appt with PCP for follow up in November. Route to [place] when form completed for processing Dixon Valadez MD 11/18/2024 3:52 PM Signed Has appt 11/20, will complete form then Dixon Valadez MD Allergies As of Date: 11/13/2024 Noted Allergy Reaction OZEMPIC (SEMAGLUTIDE) 07/21/2022 6 - Diarrhea TRULICITY (DULAGLUTIDE) 06/02/2024 8 - GI Upset Comments: Diarrhea KEFLEX (CEPHALEXIN) 01/06/2021 14 - Other: See Comments Comments: Joint Pain Date Reviewed: 10/03/2024 Reviewed by: Harriet Cope APRN.SUPPORT SERVICE TECH - Fully Assessed Reason for Visit: Forms [913] Cmt: Surgical clearance form from [facility] Prescriptions as of 11/18/2024 - blood sugar diagnostic (FREESTYLE LITE STRIPS) test strip Test blood sugar(s) 3 times daily. Dx: Type 2 DM - Controlled E11.9. Insulin: Yes. - tirzepatide (MOUNJARO) 15 mg/0.5 mL pen injector Inject 15 mg subcutaneously one time a week. - atorvastatin (LIPITOR) 40 mg tablet Take 1 tablet by mouth once daily. - folic acid 1 mg tablet Take 1 tablet by mouth once daily. - metFORMIN ER (GLUCOPHAGE XR) 500 mg 24 hr tablet Take 1 tablet by mouth two times a day with meals. - metoprolol tartrate, short acting, (LOPRESSOR) 50 mg tablet Take 1 tablet by mouth every 12 hours. - Lancets Test blood sugar(s) 3 times daily. Dx: Type 2 DM - Controlled E11.9 Insulin: Yes - Lancing Device with Lancets Use with blood glucose test three times a day. Insulin Dep? Yes - LISINOPRIL ORAL Take 10 mg by mouth. - Blood-Glucose Meter (TRUE METRIX AIR GLUCOSE METER) Test blood sugar(s) 3 times daily. Dx: Type 2 DM - Controlled E11.9 Insulin: Yes - Blood Pressure Monitor CHECK vital signs daily or as needed - aspirin 81 mg chewable tablet Take 1 tablet by mouth once daily. Take one ASPIRIN daily for life. - acetaminophen (TYLENOL) 500 mg tablet Take 2 tablets by mouth four times daily. Meds Comments as of 06/09/2022: Uses [facility] order. 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] 06/12/2021 Obesity, Class II, BMI 35-39.9 [E66.812] 06/20/2021 Type 2 diabetes mellitus with other specified c*06/20/2021 Urine retention [R33.9] 06/27/2021 Atherosclerotic heart disease of navajo coronar* Mixed hyperlipidemia [E78.2] Chronic systolic (congestive) heart failure (HC*05/22/2023 Aortic valve stenosis [I35.0] 05/22/2023 History of prostate cancer [Z85.46] 05/20/2024 Former smoker [Z87.891] 05/20/2024 SCCA (squamous cell carcinoma) of skin [C44.92] 05/20/2024 Basal cell carcinoma (BCC) of skin of lower ext*05/20/2024 Snoring [R06.83] 05/20/2024 Morbid obesity (HCC) [E66.01] 05/20/2024 05/22/2024 HTN (hypertension) [I10] 05/20/2024 Encounter Status:Closed by DIXON VALADEZ on 11/18/24 [facility] Inital Evaluation (1) - PTon 11-13-2024 Inital Evaluation (1) - PT [facility] [address] [place] [address] / REHABILITATION SERVICES INITIAL EVALUATION MR#: [id number] Acct: [id number] Name: REGINALD VAUGHN Rep #: [id number] : 1950 74 From: Allan Willson DPT, OCS, CSCS Referring Dr.: Dr. Jose Plascencia MD Status: RE G RCR Insurance: MEDICARE PART A B [facility] Patient's Visit Information Visit Information Visit Information: REGINALD VAUGHN is a 74 year old M referred to Physical Therapy by Dr. Jose Plascencia MD with a diagnosis of RCT, prehab for 01/19 reverse TSA. Date of Evaluation: 11/13/24 Physical Therapist: Allan Willson DPT, OCS, CSCS Visit Plan Frequency: 2-3x /Week Duration: 2 Months Plan: 3x/week for 4-8 for RC adn upper half strength progreession without increasing pain, work to I gym and home. Also ROM ER and flexion abd AA to AROM, manual therapy for pain and mobs L shoulder , ice as needed. pectoral stretch. 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 [place] stabbing pain while doing this 3 yrs ago. Putting up with it since but retired 2 yrs ago. RCR 2013, Noticed crunching and pain moreson in bed and ROM is limited. Sleep is OK right now. Limited ROM in L shoulder, cant lift it [place] and can't golf. Basic ADLs, all I. Hobbies: cook and bake and can be limitd but has avoided riding motorcycle due to unknown control. Regular ex: walking and stationary bike and TM. 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 Pain L shoulder: Pain Intensity (Out of 10): 0 Pain Intensity Range: 0 and 2 Comment: 2 with lifting and extending, OK at rest. Objective Objective: L scap depressed in posture vs R, protracted scap and forward head posture. cervical AROm WFL adn without pain, scapular depression and retraction limited B but no pain. AROM R shoulder WFL to 160 flexion and 50 er adn L1 IR AROM L shoulder 145 flexion with obvious scapular compensation and dyskinesia, unable to externally to rotate forearm away form body, IR to t10 lbow and wrist AROM WFL B. PROM L er 25, flexion to 150. strength er L 1, IR 4, flexion 3+, hard and scap comp with LLA. R side is 4/5 reflexes 2/3 bi and tri B. sensation UE WNL to gross light touch. + drop arm and + ext rotation lag on L. Balance/Special Test Scores Quick DASH Score: 4.5450 Goals Goal 1:: I appropriate HEP for ROM and strength uppr half leading to surgery Goal Time Frame: 6-8 Weeks Goal 2:: AROM 5 er L and 155 elevation without pain Goal Time Frame: 6-8 Weeks Goal 3:: pt feel prepared for rev TSA in January. Goal Time Frame: 6-8 Weeks Rehabilitation Potential Physical Therapy Diagnosis: limited ROM and strength effecting funciton.appropriate for pre surgery rom adn strength Rehabilitation Potential: Fair Anticipated Interventions Patient/Client Instruction: Educate patient on: Condition and Plan of Care For the Purpose of:: To decrease pain, To increase ROM, To improve nutrient delivery to tissue, To improve muscle performance and motor function and To increase tolerance to activity/condition/positio n Therapeutic Exercise to Include: Strength training, Postural training, Flexibilty training, Passive ROM and Active ROM For the Purpose of:: To decrease pain, To increase ROM, To improve nutrient delivery to tissue and To increase tolerance to activity/condition/positio n Manual Therapy Techniques to Include: Mobilization, Passive ROM and Soft tissue mobilization For the Purpose of:: To increase ROM and To improve nutrient delivery to tissue Cryotherapy (ice pack, ice massage): Yes For the Purpose of:: To decrease swelling/inflammation Text: Thank you for the opportunity to evaluate your patient. For Medicare and Medicare HMO plans, please review the plan of care and approve it. It will need to be FAXED BACK to us at [phone] for Medicare purposes. For Medicare only, by signing this I certify the plan of care. Please let me know if there are questions or concerns regarding this plan of care. Physician Signature: Date: 11/13/24 1145 CC: Dr. Jose Plascencia MD; Dr. Dixon Valadez MD EBG Signed Normal [facility] CNOVon 10-03-2024 [facility] Office Visit (GENSWS ) -- REGINALD VAUGHN ([id number]) 1950 M Date Time Provider Department 10/03/24 3:00 PM HARRIET COPE During your visit today, we recorded the following information about you: Pulse Respiration Blood pressure Weight 72/minute 14/minute 156/88 106.1 kg Harriet Cope APRN.SUPPORT SERVICE TECH 10/03/2024 3:45 PM Signed HISTORY AND PHYSICAL Reginald aVughn : 1950 REFERRING PHYSICIAN: Dixon Valadez [address] [address] CHIEF COMPLAINT: Patient presents with: Consult: Last colonoscopy 2019 HPI: Reginald is a 73 year old male referred for endoscopy. Reginald notes due for screening colonoscopy- hx of polyps (2019). Reginald denies abdominal pain.. Reginald denies diarrhea. Reginald denies constipation. Reginald denies a change in bowel habits. Reginald denies melena. Reginald denies bright red blood per rectum. Reginald denies hemorrhoids. Reginald denies family history of colon issues. Reginald denies heartburn. Reginald denies dysphagia. Reginald denies a history of ulcers/ peptic ulcer disease. Reginald follows with [facility] for HTN, aortic valve stenosis, HLD, CABG x 4 (2021). Last OV was 06/2024. Last stress test 12/2023 with no ischemia. EF: 59%. He denies CP, SOB, dizziness, palpitations, syncope, edema, recent hospitalizations Reginald has undergone prior endoscopy. Last colonoscopy was 12/[address] Stephen at [facility]. Sedation: MAC Impression: -One 5 to 10mm polyp in the rectum, removed with a cold snare. Resected and retrieved. -Non-bleeding internal hemorrhoids MICROSCOPIC DIAGNOSIS Rectal polyp, biopsy: Fragments of tubular adenoma Current Outpatient Medications Medication Sig blood sugar diagnostic (FREESTYLE LITE STRIPS) test strip Test blood sugar(s) 3 times daily. Dx: Type 2 DM - Controlled E11.9. Insulin: Yes. tirzepatide (MOUNJARO) 15 mg/0.5 mL pen injector Inject 15 mg subcutaneously one time a week. atorvastatin (LIPITOR) 40 mg tablet Take 1 tablet by mouth once daily. folic acid 1 mg tablet Take 1 tablet by mouth once daily. metFORMIN ER (GLUCOPHAGE XR) 500 mg 24 hr tablet Take 1 tablet by mouth two times a day with meals. metoprolol tartrate, short acting, (LOPRESSOR) 50 mg tablet Take 1 tablet by mouth every 12 hours. Lancets Test blood sugar(s) 3 times daily. Dx: Type 2 DM - Controlled E11.9 Insulin: Yes Lancing Device with Lancets Use with blood glucose test three times a day. Insulin Dep? Yes LISINOPRIL ORAL Take 10 mg by mouth. Blood-Glucose Meter (TRUE METRIX AIR GLUCOSE METER) Test blood sugar(s) 3 times daily. Dx: Type 2 DM - Controlled E11.9 Insulin: Yes aspirin 81 mg chewable tablet Take 1 tablet by mouth once daily. Take one ASPIRIN daily for life. acetaminophen (TYLENOL) 500 mg tablet Take 2 tablets by mouth four times daily. peg 3350-Electrolytes (GOLYTELY) 236-22.74-6.74 -5.86 gram suspension Take 4,000 mL by mouth one time only for 1 dose. Refer to printed prep instructions from your provider. Blood Pressure Monitor CHECK vital signs daily or as needed No current facility-administered medications for this visit. ALLERGIES: Ozempic [Semaglutide], Trulicity [Dulaglutide], and Keflex [Cephalexin] PAST MEDICAL HISTORY Diagnosis Date Arthritis Basal cell carcinoma (BCC) of skin of lower extremity including hip 05/20/2024 Bladder stones BPH (benign prostatic hyperplasia) CAD (coronary artery disease) Cancer (HCC) skin ca Former smoker 05/20/2024 History of colon polyps 07/24/2013 History of prostate cancer 05/20/2024 HTN (hypertension) 05/20/2024 Mixed hyperlipidemia Morbid obesity (HCC) 05/20/2024 Prostate cancer (HCC) SCCA (squamous cell carcinoma) of skin 05/20/2024 Snoring 05/20/2024 Type 2 diabetes mellitus, without long-term current use of insulin (HCC) 06/20/2021 PAST SURGICAL HISTORY Procedure Laterality Date ARTHROSCOPY KNEE DIAGNOSTIC W/WO SYNOVIAL BX SPX Right 1989 Meniscal tear CABG (4) VEIN GRAFTS AND ARTERIAL GRAFT(S) 06/08/2021 COLONOSCOPY FLX DX W/COLLJ SPEC WHEN PFRMD 07/24/2013 Colonoscopy COLONOSCOPY FLX DX W/COLLJ SPEC WHEN PFRMD 09/15/2016 Colonoscopy COLSC FLX W/RMVL OF TUMOR POLYP LESION SNARE TQ 12/30/2019 PAST SURGICAL HISTORY OF Right 2014 repair biceps tendon ROTATOR CUFF REPAIR Left 04/18/2013 FAMILY HISTORY Problem Relation Age of Onset Diabetes Mother Emphysema Father Asbestosis Diabetes Brother Asthma Brother Social History Tobacco Use Smoking status: Former Current packs/day: 0.00 Types: Cigarettes Quit date: 07/29/2010 Years since quittin.1 Smokeless tobacco: Never Tobacco comments: years Vaping Use Vaping status: Never Used Substance Use Topics Alcohol use: Yes Comment: rarely Drug use: No REVIEW OF SYMPTOMS: REVIEW OF SYSTEMS: General: The patient denies fatigue, denies weight loss, denies (more content not included)... Normal [facility] CNPTorie 08-13-2024 CNPN Telephone (UROLAG) -- REGINALD VAUGHN ([id number]) 1950 Date Time Provider Department 08/13/24 RAJAT العراقي JR During your visit today, we recorded the following information about you: Irene Logan RN 08/13/2024 4:12 PM Signed Patient called asking about results. Informed patient that the results are still in process, the office will contact him when results are available. Informed results from blood work today is not available. Irene Logan RN Allergies As of Date: 08/13/2024 Noted Allergy Reaction OZEMPIC (SEMAGLUTIDE) 07/21/2022 6 - Diarrhea TRULICITY (DULAGLUTIDE) 06/02/2024 8 - GI Upset Comments: Diarrhea KEFLEX (CEPHALEXIN) 01/06/2021 14 - Other: See Comments Comments: Joint Pain Date Reviewed: 08/08/2024 Reviewed by: Warner Polo LPN - Fully Assessed Reason for Visit: Results [95] Prescriptions as of 08/13/2024 - blood sugar diagnostic (FREESTYLE LITE STRIPS) test strip Test blood sugar(s) 3 times daily. Dx: Type 2 DM - Controlled E11.9. Insulin: Yes. - tirzepatide (MOUNJARO) 15 mg/0.5 mL pen injector Inject 15 mg subcutaneously one time a week. - atorvastatin (LIPITOR) 40 mg tablet Take 1 tablet by mouth once daily. - folic acid 1 mg tablet Take 1 tablet by mouth once daily. - metFORMIN ER (GLUCOPHAGE XR) 500 mg 24 hr tablet Take 1 tablet by mouth two times a day with meals. - metoprolol tartrate, short acting, (LOPRESSOR) 50 mg tablet Take 1 tablet by mouth every 12 hours. - Lancets Test blood sugar(s) 3 times daily. Dx: Type 2 DM - Controlled E11.9 Insulin: Yes - Lancing Device with Lancets Use with blood glucose test three times a day. Insulin Dep? Yes - LISINOPRIL ORAL Take 10 mg by mouth. - Blood-Glucose Meter (TRUE METRIX AIR GLUCOSE METER) Test blood sugar(s) 3 times daily. Dx: Type 2 DM - Controlled E11.9 Insulin: Yes - Blood Pressure Monitor CHECK vital signs daily or as needed - aspirin 81 mg chewable tablet Take 1 tablet by mouth once daily. Take one ASPIRIN daily for life. - acetaminophen (TYLENOL) 500 mg tablet Take 2 tablets by mouth four times daily. Meds Comments as of 06/09/2022: Uses [facility]. 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] 06/12/2021 Obesity, Class II, BMI 35-39.9 [E66.812] 06/20/2021 Type 2 diabetes mellitus with other specified c*06/20/2021 Urine retention [R33.9] 06/27/2021 Atherosclerotic heart disease of [place] coronar* Mixed hyperlipidemia [E78.2] Chronic systolic (congestive) heart failure (HC*05/22/2023 Aortic valve stenosis [I35.0] 05/22/2023 History of prostate cancer [Z85.46] 05/20/2024 Former smoker [Z87.891] 05/20/2024 SCCA (squamous cell carcinoma) of skin [C44.92] 05/20/2024 Basal cell carcinoma (BCC) of skin of lower ext*05/20/2024 Snoring [R06.83] 05/20/2024 Morbid obesity (HCC) [E66.01] 05/20/2024 05/22/2024 HTN (hypertension) [I10] 05/20/2024 Encounter Status:Closed by IRENE LOGAN on 08/13/24 [facility] PSA SerPl-mCncon 08-13-2024 Prostate specific Ag [Mass/Vol] ng/mL Normal <2.60 [facility] Comment on above: Order Comment: Speci men Type: BLOOD SPECIMENOrdering Facility: [facility] Address: [address] [place] [address] Result Comment: Nikunj l PSA test methodology used is the Electrochemiluminescence Immunoassay by [employer]. Total PSA values by differing methodologies cannot be interchanged. Performed By: #### 2 [id number] ####[facility] LABCLIA [id number] [facility] HOSPITALCadence [address] STATES OF [facility] CNOVon 08-08-2024 CNOV Office Visit (DERMST ) -- REGINALD VAUGHN ([id number]) 1950 M Date Time Provider Department 08/08/24 7:30 AM HARRIETT HARMON During your visit today, we recorded the following information about you: Harriett Harmon APRN.CNP 08/08/2024 8:09 AM Signed Department of Dermatology Harriett Harmon APRN.CNP Last visit in Dermatology: 02/04/2021 Objective/Assessment/Plan Skin Exam 1. INFLAMED SEBORRHEIC KERATOSIS (5) Left Upper Back (2), Right Temporal Scalp (2), Right Upper Back Irritated hyperpigmented, stuck-on papule CRYOTHERAPY SKIN LESION - Left Upper Back (2), Right Temporal Scalp (2), Right Upper Back Complexity: simple Destruction method: cryotherapy Informed consent: discussed and consent obtained Timeout: patient name, date of , surgical site, and procedure verified Lesion destroyed using liquid nitrogen: Yes Region frozen until ice ball extended beyond lesion: Yes Cryotherapy cycles: 2 Outcome: patient tolerated procedure well with no complications Post-procedure details: wound care instructions given Additional details: Seborrheic Keratoses - Discussed etiology and natural history of condition, including benign nature. - Discussed that if symptomatic/bothersome, may consider intervention. - If asymptomatic intervention would be cosmetic in nature. - Discussed risks and benefits of observation vs cryotherapy vs shave removal vs curettage. - Patient opts for cryotherapy Cryosurgery of non-malignant lesion(s) Risks, benefits, alternatives and personnel required for cryosurgery reviewed with patient. Pt verbalizes understanding and wishes to proceed. 2. SEBORRHEIC KERATOSIS Generalized Stuck-on verrucous, variably pigmented papules and plaques. Scattered to the trunk, bilateral upper extremities, bilateral lower extremities. Observational course. Monitor for growth and changes. 3. MULTIPLE BENIGN NEVI Generalized Multiple scattered pink papules with flaccid epidermis and small, symmetric cabrales to brown macules with uniform pigmentation over the trunk and extremities. Observational course. Monitor for growth and changes. 4. LENTIGINES Generalized Densely scattered light cabrales macules and small patches on all sun exposed areas. Observational course. Monitor for growth and changes. 5. SIMENTAL ANGIOMA Generalized Simental-red papules scattered to the trunk, bilateral upper extremities, bilateral lower extremities. Observational course. Monitor for growth and changes. 6. HISTORY OF NONMELANOMA SKIN CANCER Generalized No evidence of recurrence at previous surgical site Recommend annual skin exams and regular dermatology follow up 7. SKIN CANCER SCREENING Generalized The patient's skin was examined for evidence of cutaneous malignancy. The nature of sun-induced photo-aging and skin cancers is discussed. Sun avoidance, protective clothing, and the use of 30-SPF sunscreens is advised. Patient is instructed to perform regular self exams. Patient instructed to observe for changing, symptomatic, or new skin lesions and encouraged to contact our office for evaluation. Follow-up as noted below or as needed. Chief Complaint: Patient presents with: Full Body Skin Check Subjective and Objective HPI: Reginald Vaughn is a 73 year old male who presents for: Skin check. 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 Past medical history is reviewed. Medication list is reviewed. Physical Exam included: Scalp, face, ears, neck, chest, back, abdomen, bilateral upper extremities, bilateral lower extremities, buttocks, hands, nails and hair Intake information obtained by Warner Polo LPN The documentation for this note was completed by Padmaja Veras MA acting as scribe for Harriett Harmon APRN.CNP. August 08, 2024 7:49 AM I agree with the Chief Complaint, ROS, and Past Histories independently gathered by the clinical it application support analyst and the remaining scribed note accurately describes my personal service to the patient. Harriett Harmon APRN.Padmaja Feldman MA 08/08/2024 7:50 AM Addendum SKIN CARE AFTER CRYOSURGERY The skin's response to cryosurgery (freezing) can be mild to severe, depending on the depth of the freeze and location of the area treated. You may have minimal redness and swelling with little discomfort or significant discoloration and blistering with considerable discomfort. A burning sensation in the skin may last from several minutes to several hours after the procedure. Follow these instructions when caring for an area treated by cryosurgery: 1. Please clean the area every day with gentle soap and water. (more content not included)... Normal [facility] Cardiology Visit Reporton Cardiology Visit Report [facility] [address] [place] [address] OFFICE VISIT Date of Service: 06/24/24 MR#: [id number] Acct: [id number] Name: REGINALD VAUGHN Rep #: [id number] : 1950 Provider: ZACHERY Rose Age/Sex: 73/M Location: [facility] Status: Signed HPI HPI History of Present Illness Details: Reginald Vaughn is a 73-year-old gentleman who presents to the office today for a cardiovascular follow up visit. He presented to [facility] on 05/31/2021 with shortness of breath and chest discomfort. He had noted that his shortness of breath and chest discomfort had been going on for several months. He was in his PCPs office and ST depression was noted in the lateral leads. High-sensitivity troponin was 58. He did undergo a stress test which was abnormal, he was also noted to have a decreased ejection fraction. He did undergo a diagnostic heart catheterization which demonstrated mid LAD stenosis that progressed from 85% to 95% back to 85, mid circumflex had 95% stenosis as well as 75% stenosis in the ramus, proximal RCA was occluded. He was transferred to [facility]. Patient underwent bypass surgery on 06/08/21, he had an CUI to the LAD, SVG to the PDA, SVG to the obtuse marginal 1, SVG aorta sequential [id number] to ramus. From a cardiac standpoint, the patient is doing well. He did undergo an incisional hernia repair without issues last month. He denies any palpitations, chest pain, pressure or heaviness. He denies SOB, Orthopnea, and PND. He does not have bleeding issues; no blood in urine, stool or nosebleeds. He denies any decrease in energy level, myalgias, or claudication. He does not have edema, or sudden weight gain. He denies dizziness, lightheadedness, syncopal or near syncopal episodes, and headaches. Intake Vital Signs 12/11/23 08:31 06/24/24 07:35 Height 5 ft 9 in 5 ft 9 in Weight: 233 lb BMI 34.4 BP 129/89 H Blood Pressure Location Lt brachial Position Sitting Respiration 18 Pulse 84 Pulse Source Monitor Pulse Oximetry (%) 96 Intake Visit Reasons: 6 M Materials Management Supervisor Required: No Is patient in pain?: No Allergies cephalexin Adverse Reaction (Verified 06/24/24 07:55) Pain in joints Medications ???Medication ???Instructions ???Recorded ???Confirmed ???Type aspirin 81 mg tablet,delayed 81 mg PO DAILY 06/13/21 06/24/24 H istory release (Adult Low Dose Aspirin) folic acid 1 mg tablet 1 mg PO DAILY 06/13/21 06/24/24 Hi story acetaminophen 500 mg tablet 1,000 mg PO BID PRN Pain 11/14/22 06/24/24 History tirzepatide 15 mg/0.5 mL 15 mg (0.5 mL) subcut QWEEK #2 mL 03/29/23 06/24/24 Rx subcutaneous pen injector (Mounjaro) atorvastatin 40 mg tablet 40 mg PO DAILY cholesterol #90 tab s 04/30/23 06/24/24 Rx metoprolol tartrate 50 mg tablet 50 mg PO BID #180 tabs 04/30/23 Rx metformin 500 mg tablet,extended 500 mg PO BID 12/11/23 06/24/24 Hi story release 24hr (osmotic) lisinopril 10 mg tablet 10 mg PO DAILY #90 tabs 06/05/24 0 06/24/24 Rx Ejection fraction %: 55 Have you fallen in the past year?: No PFSH Medical History Avulsion of skin of toe Facial cellulitis Acute kidney injury Elevated blood pressure reading Obesity (BMI 30-39.9) Diabetes History of left heart catheterization (LHC) ( 06/02/21) Atherosclerotic heart disease of navajo coronary artery without angina pectoris HLD (hyperlipidemia) Aortic valve disorder Cardiomyopathy Angina pectoris Nonspecific ST-T wave electrocardiographic changes Chest pain Acute UTI Intractable pain Orchitis Acute epididymitis Orchitis and epididymitis Tendinitis of extensor tendon of right hand High cholesterol History of prostate cancer History of skin cancer Surgical History History of coronary artery bypass surgery ( 06/08/21) H/O prostatectomy Family History Other Cancer Diabetes Social History household members: none housing: apartment Smoking Status: Never smoker ROS Const Const: Negative for fatigue, weakness, headache(s) or frequent falls Eyes Eyes: Negative for blurry vision ENT ENT: Negative for headache(s), dizziness or Nosebleed/epistaxis Cardio Chest Pain: No Palpitations: No Edema: None Muscle aches with walking: None Resp Respiratory: Negative for SOB with activity, SOB at rest or SOB orthopnea SOB lying down GI GI: Negative nausea, vomiting, heartburn, bright, red blood in stools or black,tarry stools : Negative for hematuria (more content not included)... Normal [facility] 06-18-2024 CNOV Office Visit (GENSWS ) -- REGINALD VAUGHN ([id number]) 1950 Date Time Provider Department 06/18/24 1:00 PM VICKIE LUNA GENSWS During your visit today, we recorded the following information about you: Pulse Blood pressure 100/minute 153/90 Vickie Luna MD 06/19/2024 8:17 PM Signed FOLLOW UP VISIT - HERNIA NAME: Reginald Vaughn CLINIC NO.: [id number] DATE OF SERVICE: 06/18/2024 : 1950 REFERRING PHYSICIAN: Dixon Valadez MD Reginald is a patient I am following for a a complaint of a bulge and discomfort in his prior supraumbilical incision. The patient first noticed a hernia this summer which was smaller but he at the time noted some discomfort in this area with lifting, straining, and coughing. The symptoms have increased, over the past few months. He notes the site is much larger than it was before. He notes a chronic dull pain. He states it reduces when he lays back down but pushes back out. He states he has trouble doing exercise due to the discomfort. He notes no changes in his bowel function and no obstructive symptoms. The patient underwent a robotic prostatectomy in 2020. This was followed with radiation. He had a follow-up PET CT scan in 2021 which when reviewing the CAT scan images demonstrated was felt to be a small incisional hernia at the midline robotic port site which is certainly grown over time based on clinical evaluation. The patient was seen by his primary care physician who felt the patient has a hernia. Reginald was referred for evaluation and treatment. I performed a laparoscopic incisional hernia repair with mesh on June 02, 2024. The patient was found of a 4.5 cm defect. He had a somewhat larger hernia sac which was dissected in a hybrid fashion. The fascial defect was closed and this was reinforced with a 10 x 15 cm mesh. The patient currently notes he is doing quite well minimal. his appetite has been good. he denies fever, chills or abdominal pain. he does note some minimal incisional discomfort. he notes no bulges at the operative site VITALS: Blood pressure 153/90, pulse 100, SpO2 98%. On examination, the abdomen is benign. The incisions are healing well without signs of infection or inflammation. There are no signs of recurrent hernia formation. Assessment IMPRESSION: status post laparoscopic incisional hernia repair with mesh PLAN: If the patient notes any problems, he should contact me immediately. he may return to his regular activities as tolerated, with the exception of no lifting greater than 20 pounds for the next 6 weeks. Diagnoses: (K43.9) Abdominal wall hernia (primary encounter diagnosis) Return to Clinic: The patient is instructed to follow-up with me as needed. _ Vickie Luna MD Allergies As of Date: 06/18/2024 Noted Allergy Reaction OZEMPIC (SEMAGLUTIDE) 07/21/2022 6 - Diarrhea TRULICITY (DULAGLUTIDE) 06/02/2024 8 - GI Upset Comments: Diarrhea KEFLEX (CEPHALEXIN) 01/06/2021 14 - Other: See Comments Comments: Joint Pain Date Reviewed: 06/18/2024 Reviewed by: Jhony Ma MA - Fully Assessed Reason for Visit: Post Op [174] Primary Visit Diagnosis:Abdominal wall hernia [K43.9] Prescriptions as of 06/19/2024 - tirzepatide (MOUNJARO) 15 mg/0.5 mL pen injector Inject 15 mg subcutaneously one time a week. - atorvastatin (LIPITOR) 40 mg tablet Take 1 tablet by mouth once daily. - folic acid 1 mg tablet Take 1 tablet by mouth once daily. - metFORMIN ER (GLUCOPHAGE XR) 500 mg 24 hr tablet Take 1 tablet by mouth two times a day with meals. - metoprolol tartrate, short acting, (LOPRESSOR) 50 mg tablet Take 1 tablet by mouth every 12 hours. - Lancets Test blood sugar(s) 3 times daily. Dx: Type 2 DM - Controlled E11.9 Insulin: Yes - blood sugar diagnostic (FREESTYLE LITE STRIPS) test strip Test blood sugar(s) 3 times daily. Dx: Type 2 DM - Controlled E11.9. Insulin: Yes. - Lancing Device with Lancets Use with blood glucose test three times a day. Insulin Dep? Yes - LISINOPRIL ORAL Take 10 mg by mouth. - Blood-Glucose Meter (TRUE METRIX AIR GLUCOSE METER) Test blood sugar(s) 3 times daily. Dx: Type 2 DM - Controlled E11.9 Insulin: Yes - Blood Pressure Monitor CHECK vital signs daily or as needed - aspirin 81 mg chewable tablet Take 1 tablet by mouth once daily. Take one ASPIRIN daily for life. - acetaminophen (TYLENOL) 500 mg tablet Take 2 tablets by mouth four times daily. Meds Comments as of 06/09/2022: Uses [facility]. 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 (more content not included)... Normal [facility] 06-05-2024 [facility] Telephone (INTMWS) -- REGINALD VAUGHN ([id number]) 1950 M Date Time Provider Department 06/05/24 DIXON VALADEZ INTMWS During your visit today, we recorded the following information about you: Ada Mariano LPN 06/05/2024 10:52 AM Signed Electronic PA rec'd and completed for elsa. Ada Mariano LPN 06/05/2024 1:42 PM Signed Prior authorization approved Payer: [employer] Rx PBM Part D [phone] Note from payer: Request Reference Number: [id number]. MOUNJARO INJ 15MG/0.5 is approved through 04/15/2025. Your patient may now fill this prescription and it will be covered. Approval Details Authorization number: [id number] Authorized from June 05, 2024 to April 15, 2025 Electronic appeal: Not supported View History Notes Time User Attachment Attachment received from payer. 06/05/2024 1:03 PM Cchs, Rx Priorauth In Document Medication Being Authorized tirzepatide (MOUNJARO) 15 mg/0.5 mL pen injector Inject 15 mg subcutaneously one time a week. Dispense: 6 mL Refills: 3 Start: 06/05/2024 End: 06/05/2025 Class: Normal Diagnoses: Type 2 diabetes mellitus without complication, without long-term current use of insulin (HCC) This order has been released to its destination. To be filled at: [facility] [place] [address] - [address] [phone] Allergies As of Date: 06/05/2024 Noted Allergy Reaction OZEMPIC (SEMAGLUTIDE) 07/21/2022 6 - Diarrhea TRULICITY (DULAGLUTIDE) 06/02/2024 8 - GI Upset Comments: Diarrhea KEFLEX (CEPHALEXIN) 01/06/2021 14 - Other: See Comments Comments: Joint Pain Date Reviewed: 06/02/2024 Reviewed by: Juancho Park, RN - Fully Assessed Reason for Visit: Insurance Authorization [[id number]] Prescriptions as of 06/05/2024 - tirzepatide (MOUNJARO) 15 mg/0.5 mL pen injector Inject 15 mg subcutaneously one time a week. - atorvastatin (LIPITOR) 40 mg tablet Take 1 tablet by mouth once daily. - folic acid 1 mg tablet Take 1 tablet by mouth once daily. - metFORMIN ER (GLUCOPHAGE XR) 500 mg 24 hr tablet Take 1 tablet by mouth two times a day with meals. - metoprolol tartrate, short acting, (LOPRESSOR) 50 mg tablet Take 1 tablet by mouth every 12 hours. - oxyCODONE-acetaminophen (PERCOCET) 5-325 mg tablet Take 1 tablet by mouth four times a day as needed for pain for up to 5 days. FOR PAIN. - Lancets Test blood sugar(s) 3 times daily. Dx: Type 2 DM - Controlled E11.9 Insulin: Yes - blood sugar diagnostic (FREESTYLE LITE STRIPS) test strip Test blood sugar(s) 3 times daily. Dx: Type 2 DM - Controlled E11.9. Insulin: Yes. - Lancing Device with Lancets Use with blood glucose test three times a day. Insulin Dep? Yes - LISINOPRIL ORAL Take 10 mg by mouth. - Blood-Glucose Meter (TRUE METRIX AIR GLUCOSE METER) Test blood sugar(s) 3 times daily. Dx: Type 2 DM - Controlled E11.9 Insulin: Yes - Blood Pressure Monitor CHECK vital signs daily or as needed - aspirin 81 mg chewable tablet Take 1 tablet by mouth once daily. Take one ASPIRIN daily for life. - acetaminophen (TYLENOL) 500 mg tablet Take 2 tablets by mouth four times daily. Meds Comments as of 06/09/2022: Uses [facility]. 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] 06/12/2021 Obesity, Class II, BMI 35-39.9 [E66.812] 06/20/2021 Type 2 diabetes mellitus with other specified c*06/20/2021 Urine retention [R33.9] 06/27/2021 Atherosclerotic heart disease of navajo coronar* Mixed hyperlipidemia [E78.2] Chronic systolic (congestive) heart failure (HC*05/22/2023 Aortic valve stenosis [I35.0] 05/22/2023 History of prostate cancer [Z85.46] 05/20/2024 Former smoker [Z87.891] 05/20/2024 SCCA (squamous cell carcinoma) of skin [C44.92] 05/20/2024 Basal cell carcinoma (BCC) of skin of lower ext*05/20/2024 Snoring [R06.83] 05/20/2024 Morbid obesity (HCC) [E66.01] 05/20/2024 05/22/2024 HTN (hypertension) [I10] 05/20/2024 Encounter Status:Closed by ADA MARIANO on 06/05/24 [facility] ANES POSTPROC EVALon 025 ANES POSTPROC EVAL HNO ID: [id number] Author: SAJAN OQUENDO MD Service: Anesthesiology Author Type: Anesthesiologist Type: Anesthesia Postprocedure Evaluation Filed: 06/02/2024 12:46 Note Text: POST ANESTHESIA EVALUATION NOTE : 1950 Procedure Summary Date: 06/02/24 Room / Location: [place] [address] / [place] Anesthesia Start: 915 Anesthesia Stop: 1209 Procedure: LAPAROSCOPIC HERNIA REPAIR INCISIONAL INITIAL REDUCIBLE W/MESH 3cm-10cm (Abdomen) Diagnosis: Abdominal wall hernia (Abdominal wall hernia [K43.9]) Surgeons: Vickie Luna MD Responsible Provider: Sajan Oquendo MD Anesthesia Type: general ASA Status: 3 Anesthesia Type: general Airway Type: ETT Last Vitals Vitals Value Taken Time BP 126/60 06/02/24 1245 Temp 36.7 ?C (98.1 ?F) 06/02/24 1215 Pulse 77 06/02/24 1245 Resp 18 06/02/24 1245 SpO2 94 % 06/02/24 1245 Post Anesthesia Patient Status Patient Evaluation: bedside. Anticipated Disposition: phase 2 then home. Neurological Status: aware and responsive. Pulmonary Status: breathing comfortably on room air Airway Control: returned to baseline unsupported. Cardiovascular Status: stable. Pain Management: clinically adequate Postoperative Hydration: acceptable. Intraoperative Events: no significant anesthesia events Post Operative Nausea/Vomiting Status: no significant post operative nausea or vomiting Recommendation: continue current plan of care. Anesthesia Observations No Documentation SIGNATURE: Sajan Oquendo MD PATIENT NAME: Reginald Vaughn DATE: June 02, 2024 TIME: 12:46 PM CSN: [id number] [facility] ANES PRE-OPon 06-02-2024 ANES PRE-OP HNO ID: [id number] Author: SAJAN OQUENDO MD Service: Anesthesiology Author Type: Anesthesiologist Type: Anesthesia Preprocedure Evaluation Filed: 06/02/2024 08:49 Note Text: ANESTHESIOLOGY DAY OF SURGERY NOTE : 1950 Procedure Information Date/Time: 06/02/24 0917 Procedure: LAPAROSCOPIC HERNIA REPAIR INCISIONAL INITIAL REDUCIBLE W/MESH 3cm-10cm (Abdomen) - LAPAROSCOPIC HERNIA REPAIR INCISIONAL INITIAL REDUCIBLE W/MESH 3cm-10cm Location: NE OR04 / NE OR Surgeons: Vickie Luna MD Estimated body mass index is 34.01 kg/m? as calculated from the following: Height as of 05/20/24: 176.5 cm (5' 9.5). Weight as of 05/22/24: 106 kg (233 lb 11 oz). 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) (+) HTN (hypertension) (+) NSTEMI (non-ST elevated myocardial infarction) ([facility]) (+) S/P CABG x 4 ENDO (+) Type 2 diabetes mellitus with other specified complication, without long-term current use of insulin ([facility]) NEURO-PSYCH (+) History of prostate cancer I - PHYSICAL EVALUATION AIRWAY Patient intubated: No. Tracheostomy tube not present Mallampati: II. TM distance: >3 FB. Neck ROM: full ROM without neurological symptoms. Mouth opening: adequate. Short neck: yes. Thick neck: yes DENTAL Normal dental observations. Dental findings: teeth intact and poor dentition. Additional exam findings: yes. CARDIOVASCULAR Rhythm: regular Rate: normal Murmur: murmur present. PULMONARY Normal pulmonary observations. Breath sounds clear to auscultation. ABDOMINAL Normal abdominal observations. Obese: obesity present. Abdomen: soft. Bowel sounds: normal. II - ANESTHESIA PLAN ASA Score: 3 Anesthetic Plan: general Airway type: ETT The patient is not a current smoker. NPO Status: adequate Beta Babs Monitoring Plan Monitoring plan: standard ASA. Post Procedure Analgesic Plan Postoperative analgesic plan: parenteral or oral opioids and multimodal analgesia. Informed Consent Anesthetic risks, benefits, alternatives, personnel and consent discussed: yes. Patient / Responsible Libertarian agrees to proceed: yes Patient / Surrogate agrees to blood products: blood products not planned DNR status not reviewed with patient and/or family prior to surgery. Significant changes in the patient condition since the History and Physical, not otherwise documented in primary service progress note: no. Potential Anesthesia issues that may suggest increased risk of complications or contraindication to planned procedure: none. Discussed the possibility of lip / dental damage: yes No vitals data found for the desired time range. Facility-Administered Medications as of 06/02/2024 Medication Dose Route Frequency acetaminophen 1,000 mg tab(s) (TYLENOL) 1,000 mg ORAL Pre-Op Once promethazine 12.5 mg tab(s) (PHENERGAN) 12.5 mg ORAL Pre-Op Once lactated ringers iv infusion 30 mL/hr INTRAVENOUS CONTINUOUS lidocaine (PF) 10 mg/mL (1 %) 1-2 mg injection (XYLOCAINE) 0.1-0.2 mL INTRADERMAL PRN NaCl 0.9% iv flush bag 20 mL INTRAVENOUS PRN clindamycin iv piggyback 900 mg in D5W 50 mL (CLEOCIN) 900 mg INTRAVENOUS Pre-Op Once Outpatient Medications as of 06/02/2024 Medication Sig metFORMIN ER (GLUCOPHAGE XR) 500 mg 24 hr tablet Take 1 tablet by mouth two times a day with meals. blood sugar diagnostic (FREESTYLE LITE STRIPS) test strip Test blood sugar(s) 3 times daily. Dx: Type 2 DM - Controlled E11.9. Insulin: Yes. atorvastatin (LIPITOR) 40 mg tablet Take 1 tablet by mouth once daily. folic acid 1 mg tablet Take 1 tablet by mouth once daily. metoprolol tartrate, short acting, (LOPRESSOR) 50 mg tablet Take 1 tablet by mouth every 12 hours. LISINOPRIL ORAL Take 10 mg by mouth. Blood-Glucose Meter (TRUE METRIX AIR GLUCOSE METER) Test blood sugar(s) 3 times daily. Dx: Type 2 DM - Controlled E11.9 Insulin: Yes Blood Pressure Monitor CHECK vital signs daily or as needed acetaminophen (TYLENOL) 500 mg tablet Take 2 tablets by mouth four times daily. (Patient taking differently: Take 1,000 mg by mouth two times a day.) oxyCODONE-acetaminophen (PERCOCET) 5-325 mg tablet Take 1 tablet by mouth four times a day as needed for pain for up to 5 days. FOR PAIN. tirzepatide (MOUNJARO) 15 mg/0.5 mL pen injector Inject 15 mg subcutaneously one time a week. Lancets Test blood sugar(s) 3 times daily. Dx: Type 2 DM - Controlled E11.9 Insulin: Yes Lancing Device with Lancets Use with blood glucose test three times a day. Insulin Dep? Yes aspirin 81 mg chewable tablet Take 1 tablet by mouth once daily. Take one ASPIRIN daily for life. I have interviewed and examined the patient. I have reviewed th (more content not included)... [facility] BRIEF OP NOTon 06-02-2024 BRIEF OP NOT HNO ID: [id number] Author: ANGELICA DENNISON DO Service: General Surgery Author Type: Resident Type: Brief Op Note Filed: 06/02/2024 12:01 Note Text: BRIEF OPERATIVE / PROCEDURE NOTE LOG ID: [id number] SURGERY/PROCEDURE DATE: 06/02/2024 INCISION/PROCEDURE START TIME: 9:48 AM INCISION CLOSE/PROCEDURE END TIME: 11:58 AM SURGEON(S)/PROCEDURALIST(S ) AND MS SQL DEVELOPER(S): Surgeons and Role: * Vickie Luna MD - Primary * Angelica Dennison DO - Resident - Assisting Physician Farm Management Teacher: Mariana Smith PA-C SURGERY/PROCEDURE(S): LAPAROSCOPIC HERNIA REPAIR INCISIONAL INITIAL REDUCIBLE W/MESH 3cm-10cm: 09159 (CPT?) ANESTHESIA: General FINDINGS: 4.5 cm ventral hernia defect. Hybrid laparoscopic repair with open resection of hernia sac and fascial closure. IPOM mesh 15 x 10 cm. ESTIMATED BLOOD LOSS: 10 mls SPECIMENS: ID Type Source Tests Collected by Time Destination A : Hernia Sac Tissue Hernia Sac SURGICAL PATHOLOGY Vickie Luna MD 06/02/2024 10:40 AM COMPLICATIONS: None IMPLANTS: Implant Name Type Inv. Item Serial No. 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 LRB No. Used Action MESH PARIETENE DS [id number] - [id number] Mesh MESH PARIETENE DS [id number] [employer] [id number] N/A 1 Implanted CLOSURE TECHNIQUE: Primary PRE-OP/PRE-PROCEDURE DIAGNOSIS: Ventral hernia POST-OP/POST-PROCEDURE DIAGNOSIS: Same as Preop SIGNATURE: Angelica Dennison DO PATIENT NAME: Reginald Vaughn DATE: June 02, 2024 TIME: 12:[address] [facility] BRIEF OP NOT HNO ID: [id number] Author: VICKIE LUNA MD Service: General Surgery Author Type: Physician Type: Brief Op Note Filed: 06/05/2024 10:25 Note Text: BRIEF OPERATIVE NOTATION FOR SURGICAL PROCEDURE. Reginald Vaughn 1950 [id number] male LOG ID: [id number] Surgery/Procedure Date: 06/02/2024 Incision/Procedure Start Time: 9:48 AM Incision Close/Procedure End Time: Surgeon(s)/Proceduralist(s ) and Farm Management Teacher(s): Surgeons and Role: * Vickie Luna MD - Primary * Angelica Dennison DO - Resident - Assisting Physician Farm Management Teacher: Mariana Smith PA-C REFERRING PHYSICIAN: Outpatient DEPT: [facility] PROVIDER: Perez POS: [id number] ANESTHESIA: General ASA CLASS: 3 - Severe DIAGNOSIS: incisional hernia PROCEDURE: Initial anterior abdominal hernia repair: 54166 - 3-10 cm incarcerated or strangulated - laparoscopic/hybrid repair IVF: 1200 EBL: 10 Specimens: hernia sac ADDITIONAL DIAGNOSES: FINDINGS: defect was 6X5cm, hernia sac 10x12 COMPLICATIONS: None PMHx - PAST MEDICAL HISTORY Diagnosis Date Arthritis Basal cell carcinoma (BCC) of skin of lower extremity including hip 05/20/2024 Bladder stones BPH (benign prostatic hyperplasia) CAD (coronary artery disease) Cancer (HCC) skin ca Former smoker 05/20/2024 History of colon polyps 07/24/2013 History of prostate cancer 05/20/2024 HTN (hypertension) 05/20/2024 Mixed hyperlipidemia Morbid obesity (HCC) 05/20/2024 Prostate cancer (HCC) SCCA (squamous cell carcinoma) of skin 05/20/2024 Snoring 05/20/2024 Type 2 diabetes mellitus, without long-term current use of insulin (HCC) 06/20/2021 COMORBIDITIES - CAD, HTN, Hx Cardiac Surgery, and NIDDM Post Op Occurrences - None Wound Classification - Clean Operative note dictated in the dictation system. Vickie Luna MD [facility] HISTORY PHYSICALon HISTORY PHYSICAL HNO ID: [id number] Author: VICKIE LUNA MD Service: General Surgery Author Type: Physician Type: H&P Filed: 06/02/2024 08:45 Note Text: HISTORY AND PHYSICAL Reginald Vaughn 1950 REFERRING PHYSICIAN: Dixon Valadez MD CHIEF COMPLAINT: Consult and Hernia HPI: Reginald is a 73 year old male with a complaint of a bulge and discomfort in his prior supraumbilical incision. The patient first noticed a hernia this summer which was smaller but he at the time noted some discomfort in this area with lifting, straining, and coughing. The symptoms have increased, over the past few months. He notes the site is much larger than it was before. He notes a chronic dull pain. He states it reduces when he lays back down but pushes back out. He states he has trouble doing exercise due to the discomfort. He notes no changes in his bowel function and no obstructive symptoms. The patient underwent a robotic prostatectomy in 2020. This was followed with radiation. He had a follow-up PET CT scan in 2021 which when reviewing the CAT scan images demonstrated was felt to be a small incisional hernia at the midline robotic port site which is certainly grown over time based on clinical evaluation. The patient was seen by his primary care physician who felt the patient has a hernia. Reginald was referred for evaluation and treatment. The patient is being seen by me today at the request of Dr. Dixon Valadez MD for my opinion and advice regarding increasingly enlarging and symptomatic incisional hernia. PAST MEDICAL HISTORY PAST MEDICAL HISTORY Diagnosis Date Arthritis Bladder stones BPH (benign prostatic hyperplasia) CAD (coronary artery disease) Cancer (HCC) skin ca History of colon polyps 07/24/2013 Mixed hyperlipidemia Prostate cancer (HCC) Type 2 diabetes mellitus, without long-term current use of insulin (HCC) 06/20/2021 PAST SURGICAL HISTORY PAST SURGICAL HISTORY Procedure Laterality Date ARTHROSCOPY KNEE DIAGNOSTIC W/WO SYNOVIAL BX SPX Right 1989 Meniscal tear CABG (4) VEIN GRAFTS AND ARTERIAL GRAFT(S) 06/08/2021 COLONOSCOPY FLX DX W/COLLJ SPEC WHEN PFRMD 07/24/2013 Colonoscopy COLONOSCOPY FLX DX W/COLLJ SPEC WHEN PFRMD 09/15/2016 Colonoscopy COLSC FLX W/RMVL OF TUMOR POLYP LESION SNARE TQ 12/30/2019 PAST SURGICAL HISTORY OF Right 2015 repair biceps tendon ROTATOR CUFF REPAIR Left 04/18/2013 CURRENT MEDICATIONS Current Outpatient Medications Medication Sig tirzepatide (MOUNJARO) 15 mg/0.5 mL pen injector Inject 15 mg subcutaneously one time a week. metFORMIN ER (GLUCOPHAGE XR) 500 mg 24 hr tablet Take 1 tablet by mouth two times a day with meals. Lancets Test blood sugar(s) 3 times daily. Dx: Type 2 DM - Controlled E11.9 Insulin: Yes blood sugar diagnostic (FREESTYLE LITE STRIPS) test strip Test blood sugar(s) 3 times daily. Dx: Type 2 DM - Controlled E11.9. Insulin: Yes. Lancing Device with Lancets Use with blood glucose test three times a day. Insulin Dep? Yes atorvastatin (LIPITOR) 40 mg tablet Take 1 tablet by mouth once daily. folic acid 1 mg tablet Take 1 tablet by mouth once daily. metoprolol tartrate, short acting, (LOPRESSOR) 50 mg tablet Take 1 tablet by mouth every 12 hours. LISINOPRIL ORAL Take 10 mg by mouth. Blood-Glucose Meter (TRUE METRIX AIR GLUCOSE METER) Test blood sugar(s) 3 times daily. Dx: Type 2 DM - Controlled E11.9 Insulin: Yes Blood Pressure Monitor CHECK vital signs daily or as needed aspirin 81 mg chewable tablet Take 1 tablet by mouth once daily. Take one ASPIRIN daily for life. acetaminophen (TYLENOL) 500 mg tablet Take 2 tablets by mouth four times daily. (Patient taking differently: Take 1,000 mg by mouth two times a day.) No current facility-administered medications for this visit. ALLERGIES: Ozempic [Semaglutide] and Keflex [Cephalexin] PERSONAL HISTORY: SOCIAL HISTORY Social History Tobacco Use Smoking status: Former Current packs/day: 0.00 Types: Cigarettes Quit date: 07/29/2010 Years since quittin.6 Smokeless tobacco: Never Tobacco comments: years Vaping Use Vaping status: Never Used Substance Use Topics Alcohol use: Yes Comment: rarely Drug use: No FAMILY HISTORY: FAMILY HISTORY FAMILY HISTORY Problem Relation Age of Onset Diabetes Mother Emphysema Father Asbestosis Diabetes Brother Asthma Brother REVIEW OF SYMPTOMS: The review of systems data was entered by the nurse and reviewed by me There are no exam notes on file for this visit. PHYSICAL EXAMINATION: General: The patient is 73 year old male, well nourished, well hydrated in no acute distress. The patient is oriented to time, place, and person. VITALS: Blood pressure 152/85, pulse 77, weight 108.4 kg (239 lb), SpO2 98%. Body mass index is 35.29 kg/m?. HEENT: Normal cephalic, ataumatic, pupils are equally round, sclera are anicteric, mucous membranes are moist, oropharynx is clear. Ne (more content not included)... Normal [facility] OPERATIVE NOon 06-02-2024 OPERATIVE NO HNO ID: [id number] Author: VICKIE LUNA MD Service: General Surgery Author Type: Resident Type: Operative Report Filed: 06/03/2024 05:46 Note Text: -- Attestation signed by Vickie Luna MD at 06/03/2024 5:46 AM PARTICIPATION IN SURGERY/PROCEDURE: Resident performed the procedure, under direct supervision and the remainder of the procedure was performed by the primary surgeon/proceduralist with assistance. -- OPERATIVE/PROCEDURE REPORT LOG ID: [id number] SURGERY/PROCEDURE DATE: 06/02/2024 INCISION/PROCEDURE START TIME: 9:48 AM INCISION CLOSE/PROCEDURE END TIME: 11:58 AM SURGEON(S)/PROCEDURALIST(S ) AND MS SQL DEVELOPER(S): Surgeons and Role: * Vickie Luna MD - Primary * Angelica Dennison DO - Resident - Assisting Physician Farm Management Teacher: Mariana Smith PA-C SURGERY/PROCEDURE(S): LAPAROSCOPIC HERNIA REPAIR INCISIONAL INITIAL REDUCIBLE W/MESH 3cm-10cm: 31551 (CPT?) ANESTHESIA: General SURGERY/PROCEDURE DETAILS: The risks and benefits of the procedure were explained to the patient and informed consent obtained. The patient was transferred from preoperative area to the operating suite on [facility]. The patient was positioned supine with both arms tucked. A sign-in was conducted confirming the patient, procedure and laterality. Anesthesia was induced smoothly without complication. The patient was then prepped and draped in usual sterile fashion. A final timeout was then conducted. The skin over the supraumbilical ventral hernia was anesthetized, sharply incised and Polo cutdown performed. The hernia sac was sharply entered, two stay sutures of 0 prolene placed and Polo port placed. Insufflation was initiated and tolerated well. 5-mm ports were placed under direct visualization in the left upper, left mid and left lower quadrants. There were mild adhesions of omentum to the hernia sac, these were taken down using Sonincision. The falciform was dissected proximally to allow the mesh to lay flat. The fascial edges were cleared using sonincision to allow complete removal of hernia sac. Given the size of the hernia defect and hernia sac, we extended out midline incision and circumferentially dissected out the hernia sac. The fascial defect measured approximately 4.5cm. The 15 x 10 cm mesh was inserted into the abdomen and superior and inferior trans-fascial sutures placed with 0 prolene. The fascia was then closed using 0 prolene in figure of eight fashion. The abdomen was insufflated once more and mesh was noted to be laying flat, centered over the prior hernia defect. Four quadrant trans-fascial sutures were then placed through the mesh using 0 prolene on a suture passer. The remaining mesh was then secured using tack device. A bilateral TAP block was performed. The ports were removed under direct visualization and abdomen exsufflated. The subcutaneous space was approximated using 3-0 vicryl. The deep dermal space was closed using 3-0 vicryl. Skin was closed using 4-0 monocryl in subcuticular fashion. Steri strips and sterile dressing applied. At the end of the case all instrument, sponge and needle counts were correct. Anesthesia was reversed without difficulty and patient was transferred to PACU in stable condition. PRE-OP/PRE-PROCEDURE DIAGNOSIS: Ventral hernia POST-OP/POST-PROCEDURE DIAGNOSIS: Same as Preop ESTIMATED BLOOD LOSS: 10 mls SPECIMENS: ID Type Source Tests Collected by Time Destination A : Hernia Sac Tissue Hernia Sac SURGICAL PATHOLOGY Vickie Luna MD 06/02/2024 10:40 AM IMPLANTABLE DEVICES: Implant Name Type Inv. Item Serial No. 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 LRB No. Used Action MESH PARIETENE DS [id number] X1 - [id number] Mesh MESH PARIETENE DS [id number] X1 [employer] [id number] N/A 1 Implanted DRAINS: None COMPLICATIONS: None CLOSURE TECHNIQUE: Primary PARTICIPATION IN SURGERY/PROCEDURE: Resident performed the procedure with direct supervision by primary surgeon/proceduralist and Physician Farm Management Teacher prepped the patient and closed without direct supervision but with the primary surgeon/proceduralist readily available. SIGNATURE: Angelica Dennison DO PATIENT NAME: Reginald Vaughn DATE: June 02, 2024 TIME: 12:31 PM Normal [facility] Pathology biopsy report Jakob (Tiss)on 06-02-2024 CASE REPORT Normal [facility] Comment on above: Order Comment: Speci men Type: TISSUE SPECIMEN [facility] Facility[facility] Address: [address] [place] [address] Result Comment: [facility] Pathology Report Case: [id number] Authorizing Provider: Vickie Luna MD Collected: 06/02/2024 10:40 AM Ordering Location: [facility] Surgery Received: 06/02/2024 02:38 PM Pathologist: Merrick Celestin MD Specimen: Hernia Sac Performed By: #### 6 6121-5 #### [facility] CLIA [id number] [address] [place] [address] [place] CLINICAL HISTORY Normal [facility] Comment on above: Order Comment: Speci men Type: TISSUE SPECIMEN Ordering Facility: [facility] Address: [address] [place] [address] Result Comment: Pre- op diagnosis: Abdominal wall hernia [K43.9] Performed By: #### 6 6121-5 #### [facility] CLIA [id number] [address] [place] [address] [place] FINAL DIAGNOSIS Normal [facility] Comment on above: Order Comment: Speci men Type: TISSUE SPECIMEN Ordering Facility: [facility] Address: [address] [place] [address] Result Comment: A. S oft tissue, abdominal wall, herniorrhaphy: - Hernia sac. at 1059 EST Performed By: #### 6 6121-5 #### [facility] CLIA [id number] [address] [place] [address] OF [place] FINAL PERFORMING LAB Normal [facility] Comment on above: Order Comment: Speci men Type: TISSUE SPECIMEN Ordering Facility: [facility] Address: [address] [place] [address] Result Comment: Diag nostic interpretation performed at: [facility], [address] [place] [address] CLIA# [id number] Door To Door Salesman: Saul Wayne MD Performed By: #### 6 6121-5 #### [facility] CLIA [id number] [address] [place] [address] [place] GROSS DESCRIPTION A. Hernia Sac Normal [facility] Comment on above: Order Comment: Speci men Type: TISSUE SPECIMEN Ordering Facility: [facility] Address: [address] [place] [address] Result Comment: Rece ived in formalin labeled hernia sac is a previously disrupted saccular segment of cabrales-pink membranous soft tissue with attached adipose tissue measuring 7.0 x 4.0 x 3.0 cm. Sectioning shows unremarkable cut surfaces. Service Consultant sections are submitted in A1. Gross examination performed at [facility], [address] [place] [address]., [place] [address] MSL/YOLY 06/02/24 5:14 PM Performed By: #### 6 6121-5 #### [facility] CLIA [id number] [address] [place] [id number] CNPNon 05-26-2024 CNPN Telephone (MEPRAD) -- REGINALD VAUGHN ([id number]) 1950 M Date Time Provider Department 05/26/24 NARINDER BLUM During your visit today, we recorded the following information about you: Narinder Blum PA-C 05/26/2024 7:44 AM Signed Patient seen by PAT on 05/20/24 instructed to stop mounjaro one week prior to his procedure scheduled with Dr Luna on 06/02/24. Narinder Blum PA-C Allergies As of Date: 05/26/2024 Noted Allergy Reaction OZEMPIC (SEMAGLUTIDE) 07/21/2022 6 - Diarrhea KEFLEX (CEPHALEXIN) 01/06/2021 14 - Other: See Comments Comments: Joint Pain Date Reviewed: 05/22/2024 Reviewed by: Sierra Resendez MA - Fully Assessed Prescriptions as of 05/26/2024 - tirzepatide (MOUNJARO) 15 mg/0.5 mL pen injector Inject 15 mg subcutaneously one time a week. - metFORMIN ER (GLUCOPHAGE XR) 500 mg 24 hr tablet Take 1 tablet by mouth two times a day with meals. - Lancets Test blood sugar(s) 3 times daily. Dx: Type 2 DM - Controlled E11.9 Insulin: Yes - blood sugar diagnostic (FREESTYLE LITE STRIPS) test strip Test blood sugar(s) 3 times daily. Dx: Type 2 DM - Controlled E11.9. Insulin: Yes. - Lancing Device with Lancets Use with blood glucose test three times a day. Insulin Dep? Yes - atorvastatin (LIPITOR) 40 mg tablet Take 1 tablet by mouth once daily. - folic acid 1 mg tablet Take 1 tablet by mouth once daily. - metoprolol tartrate, short acting, (LOPRESSOR) 50 mg tablet Take 1 tablet by mouth every 12 hours. - LISINOPRIL ORAL Take 10 mg by mouth. - Blood-Glucose Meter (TRUE METRIX AIR GLUCOSE METER) Test blood sugar(s) 3 times daily. Dx: Type 2 DM - Controlled E11.9 Insulin: Yes - Blood Pressure Monitor CHECK vital signs daily or as needed - aspirin 81 mg chewable tablet Take 1 tablet by mouth once daily. Take one ASPIRIN daily for life. - acetaminophen (TYLENOL) 500 mg tablet Take 2 tablets by mouth four times daily. Meds Comments as of 06/09/2022: Uses [facility]. 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] 12/06/2018 11/18/2022 S/P TURP [Z90.79] 09/20/2020 Gross hematuria [R31.0] 09/20/2020 Prostate cancer (HCC) [C61] 02/21/2021 Generalized weakness [R53.1] 06/04/2021 NSTEMI (non-ST elevated myocardial infarction) *06/04/2021 S/P CABG x 4 [Z95.1] 06/12/2021 Obesity, Class II, BMI 35-39.9 [E66.812] 06/20/2021 Type 2 diabetes mellitus with other specified c*06/20/2021 Urine retention [R33.9] 06/27/2021 Atherosclerotic heart disease of [place]* Mixed hyperlipidemia [E78.2] Chronic systolic (congestive) heart failure (HC*05/22/2023 Aortic valve stenosis [I35.0] 05/22/2023 History of prostate cancer [Z85.46] 05/20/2024 Former smoker [Z87.891] 05/20/2024 SCCA (squamous cell carcinoma) of skin [C44.92] 05/20/2024 Basal cell carcinoma (BCC) of skin of lower ext*05/20/2024 Snoring [R06.83] 05/20/2024 Morbid obesity (HCC) [E66.01] 05/20/2024 05/22/2024 HTN (hypertension) [I10] 05/20/2024 Encounter Status:Closed by NARINDER BLUM on 05/26/24 [facility] CBC W Auto Differential pane l (Bld)on 05-22-2024 Basophils (Bld) [#/Vol] 10*3/uL Normal <0.11 [facility] Comment on above: Order Comment: Speci men Type: BLOOD SPECIMENOrdering Facility: [facility] Address: [address] [place] [address] Performed By: #### 5 7021-8 ####[facility] [id number] [place] [address] [place] Basophils/100 WBC (Bld) 0.3 % Normal [facility] Comment on above: Order Comment: Speci men Type: BLOOD SPECIMENOrdering Facility: [facility] Address: [address] [place] [address] Performed By: #### 5 7021-8 ####[facility] [id number] [place] [address] [place] Differential cell count method Nom (Bld) Auto Normal [facility] Comment on above: Order Comment: Speci men Type: BLOOD SPECIMENOrdering Facility: [facility] Address: [address] [place] [address] Performed By: #### 5 7021-8 ####[facility] [id number] [place] [address] [place] Eosinophils (Bld) [#/Vol] 0.15 10*3/uL Normal <0.46 [facility] Comment on above: Order Comment: Speci men Type: BLOOD SPECIMENOrdering Facility: [facility] Address: [address] [place] [address] Performed By: #### 5 7021-8 ####[facility] [id number] [place] [address] [place] Eosinophils/100 WBC (Bld) 2.2 % Normal [facility] Comment on above: Order Comment: Speci men Type: BLOOD SPECIMENOrdering Facility: [facility] Address: [address] [place] [address] Performed By: #### 5 7021-8 ####[facility] [id number] [place] [address] [place] Erythrocyte distribution width (RBC) [Ratio] 13.0 % Normal 11.5-15.0 [facility] Comment on above: Order Comment: Speci men Type: BLOOD SPECIMENOrdering Facility: [facility] Address: [address] [place] [address] Performed By: #### 5 7021-8 ####[facility] [id number] [place] [address] [place] Hematocrit (Bld) [Volume fraction] 43.2 % Normal 39.0-51.0 [facility] Comment on above: Order Comment: Speci men Type: BLOOD SPECIMENOrdering Facility: [facility] Address: [address] [place] [address] Performed By: #### 5 7021-8 ####[facility] [id number] [place] [address] [place] Hemoglobin (Bld) [Mass/Vol] 14.1 g/dL Normal 13.0-17.0 [facility] Comment on above: Order Comment: Speci men Type: BLOOD SPECIMENOrdering Facility: [facility] Address: [address] [place] [address] Performed By: #### 5 7021-8 ####[facility] [id number] [place] [address] [place] Immature granulocytes (Bld) [#/Vol] 10*3/uL Normal <0.10 [facility] Comment on above: Order Comment: Speci men Type: BLOOD SPECIMENOrdering Facility: [facility] Address: [address] [place] [address] Performed By: #### 5 7021-8 ####[facility] [id number] [place] [address] [place] Immature granulocytes/100 WBC (Bld) 0.3 % Normal [facility] Comment on above: Order Comment: Speci men Type: BLOOD SPECIMENOrdering Facility: [facility] Address: [address] [place] [address] Performed By: #### 5 7021-8 ####[facility] [id number] [place] [address] [place] Lymphocytes (Bld) [#/Vol] 1.07 10*3/uL Normal 1.00-4.00 [facility] Comment on above: Order Comment: Speci men Type: BLOOD SPECIMENOrdering Facility: [facility] Address: [address] [place] [address] Performed By: #### 5 7021-8 ####[facility] [id number] [place] [address] [place] Lymphocytes/100 WBC (Bld) 15.9 % Normal [facility] Comment on above: Order Comment: Speci men Type: BLOOD SPECIMENOrdering Facility: [facility] Address: [address] [place] [address] Performed By: #### 5 7021-8 ####[facility] [id number] [place] [address] [place] MCH (RBC) [Entitic mass] 29.3 pg Normal 26.0-34.0 [facility] Comment on above: Order Comment: Speci men Type: BLOOD SPECIMENOrdering Facility: [facility] Address: [address] [place] [address] Performed By: #### 5 7021-8 ####[facility] [id number] [place] [address] [place] MCHC (RBC) [Mass/Vol] 32.6 g/dL Normal 30.5-36.0 [facility] Comment on above: Order Comment: Speci men Type: BLOOD SPECIMENOrdering Facility: [facility] Address: [address] [place] [address] Performed By: #### 5 7021-8 ####[facility] [id number] [place] [address] [place] MCV (RBC) [Entitic vol] 89.6 fL Normal 80.0-100.0 [facility] Comment on above: Order Comment: Speci men Type: BLOOD SPECIMENOrdering Facility: [facility] Address: [address] [place] [address] Performed By: #### 5 7021-8 ####[facility] [id number] [place] [address] [place] Monocytes (Bld) [#/Vol] 0.49 10*3/uL Normal <0.87 [facility] Comment on above: Order Comment: Speci men Type: BLOOD SPECIMENOrdering Facility: [facility] Address: [address] [place] [address] Performed By: #### 5 7021-8 ####[facility] [id number] [place] [address] [place] Monocytes/100 WBC (Bld) 7.3 % Normal [facility] Comment on above: Order Comment: Speci men Type: BLOOD SPECIMENOrdering Facility: [facility] Address: [address] [place] [address] Performed By: #### 5 7021-8 ####[facility] [id number] [place] [address] [place] Neutrophils (Bld) [#/Vol] 4.96 10*3/uL Normal 1.45-7.50 [facility] Comment on above: Order Comment: Speci men Type: BLOOD SPECIMENOrdering Facility: [facility] Address: [address] [place] [address] Performed By: #### 5 7021-8 ####[facility] [id number] [place] [address] [place] Neutrophils/100 WBC (Bld) 74.0 % Normal [facility] Comment on above: Order Comment: Speci men Type: BLOOD SPECIMENOrdering Facility: [facility] Address: [address] [place] [address] Performed By: #### 5 7021-8 ####[facility] [id number] [place] [address] [place] Nucleated RBC (Bld) [#/Vol] 10*3/uL Normal <0.01 [facility] Comment on above: Order Comment: Speci men Type: BLOOD SPECIMENOrdering Facility: [facility] Address: [address] [place] [address] Performed By: #### 5 7021-8 ####[facility] [id number] [place] [address] [place] Nucleated RBC/100 WBC (Bld) [Ratio] 0.0 /100 WBC Normal [facility] Comment on above: Order Comment: Speci men Type: BLOOD SPECIMENOrdering Facility: [facility] Address: [address] [place] [address] Performed By: #### 5 7021-8 ####[facility] [id number] [place] [address] [place] Platelet mean volume (Bld) [Entitic vol] 10.0 fL Normal 9.0-12.7 [facility] Comment on above: Order Comment: Speci men Type: BLOOD SPECIMENOrdering Facility: [facility] Address: [address] [place] [address] Performed By: #### 5 7021-8 ####[facility] [id number] [place] [address] [place] Platelets (Bld) [#/Vol] 204 10*3/uL Normal 150-400 [facility] Comment on above: Order Comment: Speci men Type: BLOOD SPECIMENOrdering Facility: [facility] Address: [address] [place] [address] Performed By: #### 5 7021-8 ####[facility] [id number] [place] [address] [place] RBC (Bld) [#/Vol] 4.82 10*6/uL Normal 4.20-6.00 [facility] Comment on above: Order Comment: Speci men Type: BLOOD SPECIMENOrdering Facility: [facility] Address: [address] [place] [address] Performed By: #### 5 7021-8 ####[facility] [id number] [place] [address] [place] WBC (Bld) [#/Vol] 6.71 10*3/uL Normal 3.70-11.00 [facility] Comment on above: Order Comment: Speci men Type: BLOOD SPECIMENOrdering Facility: [facility] Address: [address] [place] [address] Performed By: #### 5 7021-8 ####[facility] [id number] [place] [address] [place] CNOVon 05-22-2024 CNOV Office Visit (FAMPWS ) -- REGINALD VAUGHN ([id number]) 1950 M Date Time Provider Department 05/22/24 9:20 AM [facility] During your visit today, we recorded the following information about you: Pulse Respiration Blood pressure Weight 78/minute 16/minute 140/80 106 kg Dixon Valadez MD 05/22/2024 10:09 AM Signed Chief Complaint Patient presents with: 6 Month Exam HPI Reginald Vaughn is a 73 year old male who presents here today for a 6 month follow up. Pt here today for his routine follow up. Hx of Prostate cancer, follows with Dr. العراقي once a year now. No urinary issues. Denies any bowel issues. Was referred to General Surgery at most recent acute visit due to abdominal pain near his navel with protrusion. Pt found to have abd hernia. Pt seen by Dr. Luna on 04/02/24, scheduled for surgical repaint 06/02. HTN: Denies monitoring his BP at home or having symptoms of chest pain, sob, or dizziness. Follows with Cardiology at [facility]. On current regimen of Lisinopril 10 mg once daily and Lopressor 50 mg 1 tab po bid. Lipids:Cardiac hx of CAD, s/p CABG, and NSTEMI. Follows with Cardiology at [facility]. Also following for aortic stenosis, moderate on last echo. Tries to watch his diet and do some exercises. On current regimen of Plavix 75 mg once daily, Lipitor 40 mg once daily and ASA 81 mg daily. DM: Checks sugars once daily with FBS 100-114. Denies any low blood sugars or neuropathy symptoms. On current regimen of Mounjaro 15 mg once weekly and Metformin XR 500 mg 2 tabs po bid. Follows with Dr. Evangelista for routine eye exams. Follows with Jasmin Abdi PA-C in Derm for routine skin checks. Past medical history, appointments, medications, allergies reviewed. Previous Medical History PAST MEDICAL HISTORY Diagnosis Date Arthritis Basal cell carcinoma (BCC) of skin of lower extremity including hip 05/20/2024 Bladder stones BPH (benign prostatic hyperplasia) CAD (coronary artery disease) Cancer (HCC) skin ca Former smoker 05/20/2024 History of colon polyps 07/24/2013 History of prostate cancer 05/20/2024 HTN (hypertension) 05/20/2024 Mixed hyperlipidemia Morbid obesity (HCC) 05/20/2024 Prostate cancer (HCC) SCCA (squamous cell carcinoma) of skin 05/20/2024 Snoring 05/20/2024 Type 2 diabetes mellitus, without long-term current use of insulin (HCC) 06/20/2021 Previous Surgical History PAST SURGICAL HISTORY Procedure Laterality Date ARTHROSCOPY KNEE DIAGNOSTIC W/WO SYNOVIAL BX SPX Right 1989 Meniscal tear CABG (4) VEIN GRAFTS AND ARTERIAL GRAFT(S) 06/08/2021 COLONOSCOPY FLX DX W/COLLJ SPEC WHEN PFRMD 07/24/2013 Colonoscopy COLONOSCOPY FLX DX W/COLLJ SPEC WHEN PFRMD 09/15/2016 Colonoscopy COLSC FLX W/RMVL OF TUMOR POLYP LESION SNARE TQ 12/30/2019 PAST SURGICAL HISTORY OF Right 2014 repair biceps tendon ROTATOR CUFF REPAIR Left 04/18/2013 Family History FAMILY HISTORY Problem Relation Age of Onset Diabetes Mother Emphysema Father Asbestosis Diabetes Brother Asthma Brother Patient Allergies ALLERGIES Allergen Reactions Ozempic [Semaglutid* Diarrhea Keflex [Cephalexin] Other: See Comments Joint Pain Current Medications Current Outpatient Medications on File Prior to Visit Medication Sig tirzepatide (MOUNJARO) 15 mg/0.5 mL pen injector Inject 15 mg subcutaneously one time a week. metFORMIN ER (GLUCOPHAGE XR) 500 mg 24 hr tablet Take 1 tablet by mouth two times a day with meals. Lancets Test blood sugar(s) 3 times daily. Dx: Type 2 DM - Controlled E11.9 Insulin: Yes blood sugar diagnostic (FREESTYLE LITE STRIPS) test strip Test blood sugar(s) 3 times daily. Dx: Type 2 DM - Controlled E11.9. Insulin: Yes. Lancing Device with Lancets Use with blood glucose test three times a day. Insulin Dep? Yes atorvastatin (LIPITOR) 40 mg tablet Take 1 tablet by mouth once daily. folic acid 1 mg tablet Take 1 tablet by mouth once daily. metoprolol tartrate, short acting, (LOPRESSOR) 50 mg tablet Take 1 tablet by mouth every 12 hours. LISINOPRIL ORAL Take 10 mg by mouth. Blood-Glucose Meter (TRUE METRIX AIR GLUCOSE METER) Test blood sugar(s) 3 times daily. Dx: Type 2 DM - Controlled E11.9 Insulin: Yes Blood Pressure Monitor CHECK vital signs daily or as needed aspirin 81 mg chewable tablet Take 1 tablet by mouth once daily. Take one ASPIRIN daily for life. acetaminophen (TYLENOL) 500 mg tablet Take 2 tablets by mouth four times daily. (Patient taking differently: Take 1,000 mg by mouth two times a day.) No current facility-administered medications on file prior to visit. Social History Social History Tobacco Use Smoking status: Former Current packs/day: 0.00 Types: Cigarettes Quit date: 07/29/2010 Years since quittin.8 Smokeless tobacco: Never Tobacco comments: years Vaping Use (more content not included)... Normal [facility] TYPE AND SCREEN,30 DAYon ABO AB Normal [facility] Comment on above: Order Comment: Speci men Type: BLOOD SPECIMENOrdering Facility: [facility] Address: [address] [place] [address] Performed By: #### T SCR30 ####[facility] MAIN BLOOD BANKIA [id number] [place] [address] [place] Rh Nom (Bld) Negative Normal [facility] Comment on above: Order Comment: Speci men Type: BLOOD SPECIMENOrdering Facility: [facility] Address: [address] [place] [address] Performed By: #### T SCR30 ####CC MAIN BLOOD BANKIA [id number] [place] [address] [place] HISTORY PHYSICALon HISTORY PHYSICAL HNO ID: [id number] Author: FORREST MEJIA APRN.SHREYA Service: ? Author Type: Nurse Practitioner Type: H&P Filed: 05/29/2024 19:49 Note Text: [facility] HISTORY AND PHYSICAL EXAMINATION SERVICE DATE: 05/20/2024 SERVICE TIME: 8:20 AM This is a virtual visit using Virtual Visit (Audio/Visual)I have discussed the nature of this visit with the patient which will occur via Distance [facility] (Phone, Virtual Visit) and he agrees to proceed with this interaction. It required patient-provider interaction for the medical decision making as documented below. I have communicated my name and active licensure. The patient's identity and physical location were verified at the time of this visit. Either the patient or their legal employment representative has been informed of the risks and benefits of and alternatives to treatment through a remote evaluation and consents to proceed with the evaluation remotely. PRIMARY CARE PHYSICIAN: Dixon Valadez MD Assessment Patient has the following medical conditions which may affect jess-operative course: 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) Followed by cardiology [facility] Lucy Madrigal H/O NSTEMI 06/08/2021 S/P CABG X 4 No Stents 06/23/2021 Stress Test 12/24/2023 ECHO showed moderate , EF 55% Denies any cardiac symptoms Aortic valve stenosis 12/24/2023 ECHO showed moderate , EF 55% History of prostate cancer S/P proctectomy and radiation , no chemotherapy Followed by urology Former smoker Reports + Former smoker on and off x 10 years. Quit 2010 Chronic systolic (congestive) heart failure (HCC) Followed by cardiology Denies any SOB, edema or exacerbations 12/24/23 ECHO EF 55% Mixed hyperlipidemia Managed with Atorvastatin Type 2 diabetes mellitus with other specified complication, without long-term current use of insulin (HCC) Managed with Metformin and MOUNJARO 05/19/24 A1c 4.7 Followed by PCP SCCA (squamous cell carcinoma) of skin Located on back Treated with Mohs Seen previously by Derm, seen last year Basal cell carcinoma (BCC) of skin of lower extremity including hip Located on left koehler Treated with excision Seen previously by Derm, seen last year Snoring BANG score 5 Instructed to follow up with PCP for further evaluation Morbid obesity (HCC) HTN (hypertension) Managed with Lisinopril and Metoprolol BP not taken, seen virtual Per epic 04/02/24 BP 152/85 Feliz Activity Status Index: METS: Walk indoors, such as around the house (1.75 METs) Do light work around the house, such as dusting or washing dishes (2.70 METs) Take care of self; that is eating, dressing, bathing, using the toilet (2.75 METs) Walk a block or two on level ground (2.75 METs) Do moderate work around the house, such as vacuuming, sweeping floors, or carrying in groceries (3.50 METs) Do yardwork, such as raking leaves, weeding, or pushing a power mower (4.50 METs) Climb a flight of stairs or walk up a hill (5.50 METs) Do heavy work around the house, such as scrubbing floors, lifting or moving heavy furniture (8.00 METs) DASI Score: 31.45 (Reports exercise 3 times per week) Patient confirms chest pain or undue shortness of breath with the above physical activity. Clinical Frailty Scale: 3. Well, with treated comorbid disease STOP-Bang Score: Snores loudly BMI greater than 35 kg/m2 Patient over 50 years old Has a large neck Male patient Denies feeling tired, fatigued, or sleepy during the daytime Has not been observed to stop breathing or choking/gasping during sleep Denies having high blood pressure STOP-Bang Score: 5 [id number] Score: Age: 65-74 Sex: male CHF history: Yes Hypertension history: Yes Stroke/TIA/thromboembolism history: No Vascular disease history: No Diabetes history: Yes [id number] Score: 4 ARISCAT Score: Age: 51-80 Preoperative SpO2: <=90% Respiratory infection in the last month: No Preoperative anemia: Yes Duration of surgery: 2-3 hrs Emergency procedure: No ARISCAT Score: ANESTHESIA FINDINGS: Intubation History: No history of difficult intubation. No abnormal airway history Significant Anesthesia Considerations: none Airway History: No history of difficult airway No abnormal airway history I - PHYSICAL EVALUATION AIRWAY Patient intubated: No. Tracheostomy tube not present Mallampati: II. TM distance: >3 FB. Neck ROM: full ROM without neurological symptoms. Mouth opening: adequate. Short neck: no. Thick neck: no Vides present: no Lip Bite Test: I DENTAL Dental findings: teeth intact. Additional comments: Crowns upper. II - ANESTHESIA PLAN Anesthetic Plan: other Anesthetic plan additional comments: *PACC/TCI - anesthesia choice. Beta Babs Monitoring Plan Post Procedure Analgesic Plan (more content not included)... Normal [facility] metabolic 2000 panelon 05-19-2024 Albumin [Mass/Vol] 4.2 g/dL Normal 3.9-4.9 [facility] Comment on above: Order Comment: Speci men Type: BLOOD SPECIMENOrdering Facility: [facility] Address: [address] [place] [address] Performed By: #### 2 4323-8, 90705-1 ####[facility] LABCLIA [id number] [place] [address] [place] ALP [Catalytic activity/Vol] 77 U/L Normal 38-113 [facility] Comment on above: Order Comment: Speci men Type: BLOOD SPECIMENOrdering Facility: [facility] Address: [address] [place] [address] Performed By: #### 2 4323-8, 86587-1 ####[facility] LABCLIA [id number] [place] [address] [place] ALT [Catalytic activity/Vol] 15 U/L Normal 10-54 [facility] Comment on above: Order Comment: Speci men Type: BLOOD SPECIMENOrdering Facility: [facility] Address: [address] [place] [address] Performed By: #### 2 4323-8, 51388-6 ####[facility] LABCLIA [id number] [place] [address] [place] Anion gap [Moles/Vol] 11 mmol/L Normal 8-15 [facility] Comment on above: Order Comment: Speci men Type: BLOOD SPECIMENOrdering Facility: [facility] Address: [address] [place] [address] Performed By: #### 2 4323-8, 48907-0 ####[facility] LABCLIA [id number] [place] [address] [place] AST [Catalytic activity/Vol] 18 U/L Normal 14-40 [facility] Comment on above: Order Comment: Speci men Type: BLOOD SPECIMENOrdering Facility: [facility] Address: [address] [place], [place] [id number] Performed By: #### 2 4323-8, 11375-4 ####[facility] LABCLIA [id number] [place] [id number] [place] Bilirubin [Mass/Vol] 0.5 mg/dL Normal 0.2-1.3 [facility] Comment on above: Order Comment: Speci men Type: BLOOD SPECIMENOrdering Facility: [facility] Address: [address] [place] [address] Performed By: #### 2 4323-8, 00020-0 ####[facility] LABCLIA [id number] [place] [address] [place] Calcium [Mass/Vol] 9.2 mg/dL Normal 8.5-10.2 [facility] Comment on above: Order Comment: Speci men Type: BLOOD SPECIMENOrdering Facility: [facility] Address: [address] [place] [address] Performed By: #### 2 4323-8, 30732-1 ####[facility] LABCLIA [id number] [place] [address] [place] Chloride [Moles/Vol] 104 mmol/L Normal 98-107 [facility] Comment on above: Order Comment: Speci men Type: BLOOD SPECIMENOrdering Facility: [facility] Address: [address] [place] [address] Performed By: #### 2 4323-8, 54890-0 ####[facility] LABCLIA [id number] [place] [address] [place] CO2 [Moles/Vol] 26 mmol/L Normal 22-30 [facility] Comment on above: Order Comment: Speci men Type: BLOOD SPECIMENOrdering Facility: [facility] Address: [address] [place], [place] [address] Performed By: #### 2 4323-8, 69516-7 ####[facility] LABIA [id number] [place] [id number] [place] Creatinine [Mass/Vol] 0.75 mg/dL Normal 0.73-1.22 [facility] Comment on above: Order Comment: Speci men Type: BLOOD SPECIMENOrdering Facility: [facility] Address: [address] [place] [address] Performed By: #### 2 4323-8, 77135-7 ####[facility] LABIA [id number] [place] [address] [place] Creatinine and Glomerular filtration rate.predicted panel (S/P/Bld) 95 mL/min/1.73m??? Normal >=60 [facility] Comment on above: Order Comment: [facility] Type: BLOOD SPECIMENOrdering Facility: [facility] Address: [address] [place] [address] Result Comment: Romy mated Glomerular Filtration Rate (eGFR) is calculated using the 2020 CKD-EPI creatinine equation. This equation utilizes serum creatinine, sex, and age as parameters. The creatinine assay has traceable calibration to isotope dilution-mass spectrometry. Refer to KDIGO guidelines for clinical interpretation. In patients with unstable renal function, e.g. those with acute kidney injury, the eGFR may not accurately reflect actual GFR. Performed By: #### 2 4323-8, 37677-0 ####[facility] LABIA [id number] [place] [address] [place] Glucose [Mass/Vol] 96 mg/dL Normal 74-99 [facility] Comment on above: Order Comment: Speci men Type: BLOOD SPECIMENOrdering Facility: [facility] Address: [address] [place] [address] Result Comment: The [place] Diabetes Association (ADA) provides guidance for cutoff values for fasting glucose and random glucose. The ADA defines fasting as no caloric intake for at least 8 hours. Fasting plasma glucose results between 100 to 125 mg/dL indicate increased risk for diabetes (prediabetes). Fasting plasma glucose results greater than or equal to 126 mg/dL meet the criteria for diagnosis of diabetes. In the absence of unequivocal hyperglycemia, results should be confirmed by repeat testing. In a patient with classic symptoms of hyperglycemia or hyperglycemic crisis, random plasma glucose results greater than or equal to 200 mg/dL meet the criteria for diagnosis of diabetes. Reference: Standards of Medical Care in Diabetes 2016, [place] Diabetes Association. Diabetes Care. 2016.39(Suppl 1). Performed By: #### 2 4323-8, 20141-5 ####[facility] LABCLIA [id number] [place] [address] [place] Potassium [Moles/Vol] 4.3 mmol/L Normal 3.7-5.1 [facility] Comment on above: Order Comment: Speci men Type: BLOOD SPECIMENOrdering Facility: [facility] Address: [address] [place] [address] Performed By: #### 2 43238, ####[facility] LABCLIA [id number] [place] [address] [place] Protein [Mass/Vol] 6.6 g/dL Normal 6.3-8.0 [facility] Comment on above: Order Comment: Speci men Type: BLOOD SPECIMENOrdering Facility: [facility] Address: [address] [place] [address] Performed By: #### 2 4323-8, ####[facility] LABCLIA [id number] [place] [address] [place] Sodium [Moles/Vol] 141 mmol/L Normal 136-144 [facility] Comment on above: Order Comment: Speci men Type: BLOOD SPECIMENOrdering Facility: [facility] Address: [address] [place] [address] Performed By: #### 2 4323-8, ####[facility] LABCLIA [id number] [place] [id number] [place] Urea nitrogen [Mass/Vol] 15 mg/dL Normal 9-24 [facility] Comment on above: Order Comment: Kelechi knight Type: BLOOD SPECIMENOrdering Facility: [facility] Address: [address] [place] [address] Performed By: #### 2 4323-8, 62882-8 ####[facility] LABCLIA [id number] [address] OF [facility] HbA1c (Bld)on 05-19-2024 Average glucose Estimated from glycated hemoglobin (Bld) [Mass/Vol] 88 mg/dL Normal [facility] Comment on above: Order Comment: Kelechi knight Type: BLOOD SPECIMENOrdering Facility: [facility] Address: [address] [place] [address] Result Comment: eAG: (Estimated average glucose) is a calculated value from HgbA1c and is employment representative of the average blood glucose level in the last 2-3 month period. Performed By: #### 5 5454-3 ####[facility] LABIA [id number] [address] STATES OF [facility] HbA1c (Bld) [Mass fraction] 4.7 % Normal 4.3-5.6 [facility] Comment on above: Order Comment: Kelechi knight Type: BLOOD SPECIMENOrdering Facility: [facility] Address: [address] [place] [address] Result Comment: [place] Diabetes Association guidelines indicate that patients with HgbA1c in the range 5.7-6.4% are at increased risk for development of diabetes, and intervention by lifestyle modification may be beneficial. HgbA1c greater or equal to 6.5% is considered diagnostic of diabetes. Performed By: #### 5 5454-3 ####[facility] LABIA [id number] [place] [address] [place] Lipid 1996 panelon 5 Cholesterol [Mass/Vol] 155 mg/dL Normal <200 [facility] Comment on above: Order Comment: Kelechi men Type: BLOOD SPECIMENOrdering Facility: [facility] Address: [address] [place] [address] Result Comment: <200 mg/dL, Desirable 200-239 mg/dL, Borderline high >239 mg/dL, High Performed By: #### 2 4323-8, 98297-1 ####[facility] LABCLIA [id number] [address] [place] Cholesterol in HDL [Mass/Vol] 43 mg/dL Normal >39 [facility] Comment on above: Order Comment: Speci men Type: BLOOD SPECIMENOrdering Facility: [facility] Address: [address] [place] [address] Result Comment: 40-5 9 mg/dL, Acceptable >59 mg/dL, High: Negative risk factor for coronary heart disease <40 mg/dL, Low: Positive risk factor for coronary heart disease Performed By: #### 2 4323-8, 24286-1 ####[facility] LABCLIA [id number] [address] [place] Cholesterol in LDL [Mass/Vol] 85 mg/dL Normal <100 [facility] Comment on above: Order Comment: Kelechi knight Type: BLOOD SPECIMENOrdering Facility: [facility] Address: [address] [place] [address] Result Comment: <100 mg/dL, Optimal 100-129 mg/dL, Near optimal/above optimal 130-159 mg/dL, Borderline high 160-189 mg/dL, High >189 mg/dL, Very high Secondary prevention optimal LDL Cholesterol levels are recommended to be < 70 mg/dL Performed By: #### 2 4323-8, 75084-7 ####[facility] LABCLIA [id number] [place] [address] [place] Cholesterol in LDL/Cholesterol in HDL [Mass ratio] 1.98 {ratio} Normal <2.54 [facility] Comment on above: Order Comment: Kelechi men Type: BLOOD SPECIMENOrdering Facility: [facility] Address: [address] [place] [address] Result Comment: Refzen banegasce: 1. National Cholesterol Education Program ATP III Guideline At-A-Glance Quick Desk Reference: National Heart, Lung, and Blood [place]. National Institutes of Health. 2001: NIH Publication No. 01-3305. 2. An International Atherosclerosis Society position paper: global recommendations for the management of dyslipidemia: executive summary, Atherosclerosis. 2014: 232(2):410-413. Performed By: #### 2 4323-8, 69800-1 ####[facility] LABCLIA [id number] [place] [address] [place] Cholesterol in VLDL [Mass/Vol] 27 mg/dL Normal <30 [facility] Comment on above: Order Comment: Speci men Type: BLOOD SPECIMENOrdering Facility: [facility] Address: [address] [place] [address] Performed By: #### 2 4328, ####[facility] LABCLIA [id number] [place] [address] [place] Cholesterol non HDL [Mass/Vol] 112 mg/dL Normal <130 [facility] Comment on above: Order Comment: Andrei men Type: BLOOD SPECIMENOrdering Facility: [facility] Address: [address] [place] [address] Result Comment: <130 mg/dL, Optimal 130-159 mg/dL, Near optimal/above optimal 160-189 mg/dL, Borderline high 190-219 mg/dL, High >219 mg/dL, Very high Secondary prevention optimal non HDL Cholesterol levels are recommended to be <100 mg/dL Performed By: #### 2 4322-11, ####[facility] LABCLIA [id number] [place] [address] [place] Cholesterol.total/Chol esterol in HDL [Mass ratio] 3.60 {ratio} Normal <5.10 [facility] Comment on above: Order Comment: Speci men Type: BLOOD SPECIMENOrdering Facility: [facility] Address: [address] [place] [address] Performed By: #### 2 432-8, 34355-5 ####[facility] LABCLIA [id number] [place] [address] [place] FASTING TIME 12 hrs Normal [facility] Comment on above: Order Comment: Speci men Type: BLOOD SPECIMENOrdering Facility: [facility] Address: [address] [place] [address] Performed By: #### 2 4323-8, 10220-2 ####[facility] LABCLIA [id number] [place] [address] [place] Triglyceride [Mass/Vol] 133 mg/dL Normal <150 [facility] Comment on above: Order Comment: Speci men Type: BLOOD SPECIMENOrdering Facility: [facility] Address: [address] [place] [address] Result Comment: <150 mg/dL, Normal 150-199 mg/dL, Borderline high 200-499 mg/dL, High >499 mg/dL, Very high Performed By: #### 2 4323-8, 61767-6 ####[facility] LABCLIA [id number] [place] [address] [place] [address] ABD/PEL WO IVCONon 2023 CT ABD/PEL WO IVCON * * *Final Report* * * DATE OF EXAM: Apr 07 2024 3:53PM [facility] 0531 - CT ABD/PEL WO IVCON / PROCEDURE REASON: Abdominal wall hernia * * * * Physician Interpretation * * * * EXAMINATION: CT ABDOMEN AND PELVIS WITHOUT IV CONTRAST CLINICAL HISTORY: Abdominal wall hernia TECHNIQUE: CT of the abdomen and pelvis was performed using standard technique, scanning from just above the dome of the diaphragm to the upper thighs. IV Contrast: None CT Radiation dose: Integrated Dose-length product (DLP) for this visit = 1001 mGy*cm. CT Dose Reduction Employed: Automated exposure control(AEC) and iterative recon COMPARISON: CT pelvis 11/24/[address] abdomen pelvis 07/03/2020. MRI prostate 10/06/2021. FINDINGS: LOWER CHEST: No significant abnormality when allowing for the unenhanced nature of this study. HEPATOBILIARY: The liver and gallbladder are normal in attenuation with no contour-deforming abnormality. SPLEEN, PANCREAS, ADRENAL GLANDS: Spleen, pancreas and adrenal glands normal in attenuation with no contour-deforming abnormality. KIDNEYS, URETERS, BLADDER: The kidneys are normal in attenuation with no hydronephrosis and no calculus. Ureters normal in course and caliber. Unchanged bladder diverticulum at the posterior left bladder. PROSTATE, SEMINAL VESICLES: There has been prior prostatectomy. No suspicious soft tissue deposits within the surgical bed is seen to suggest residual/recurrent malignancy. BOWEL: No evidence of obstruction. Normal appendix. PERITONEAL/EXTRAPERITONEAL SPACE: No free air or free fluid. LYMPH NODES: No adenopathy. VASCULAR: Not well assessed on this nonenhanced exam. ABDOMINAL WALL: There is a periumbilical hernia containing fat and loops of small bowel, with a neck measuring 4.7 cm in transverse dimension. MUSCULOSKELETAL: No acute osseous abnormality. IMPRESSION: Large periumbilical hernia containing fat and loops of small bowel. 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: [facility] Transcribe Date/Time: Apr 10 2024 8:25P Dictated by : JOHN DUNCAN MD This examination was interpreted and the report reviewed and electronically signed by: JOHN DUNCAN MD on Apr 10 2024 8:34PM EST [id number] Normal [facility] CNOVon 04-02-2024 CNOV Office Visit (GENSWS ) -- REGINALD VAUGHN ([id number]) 1950 M Date Time Provider Department 04/02/24 3:45 PM VICKIE LUNA GENSWS During your visit today, we recorded the following information about you: Pulse Blood pressure Weight 77/minute 152/85 108.4 kg Jhony Ma MA 04/03/2024 7:13 PM Signed REVIEW OF SYSTEMS: General: The patient denies fatigue, NOTES weight loss, denies weight gain, denies feeling hot, and denies feelings of cold. Eyes: The patient denies glaucoma, NOTES eye injury/surgery, does not wear glasses or contacts. Ear/Nose/Throat: The patient denies allergies, denies hayfever, denies ear infections, and denies bloody noses. Cardiovascular: The patient denies chest pain, denies heart disease, denies high blood pressure,denies cardiac stent, NOTES prior heart attack, denies irregular heart beat, denies high cholesterol, denies poor circulation, denies heart failure, other cardiac issues, denies claudication, denies cold feet, denies peripheral arterial stent. Respiratory: The patient denies tuberculosis, denies pneumonia, denies frequent cough, denies pulmonary embolism, denies shortness of breath, and denies coughing up blood. Gastrointestinal: The patient denies difficulty swallowing, denies acid reflux, denies ulcers, denies vomiting, denies jaundice/hepatitis, denies gallbladder problems, denies black or tarry stools, denies hemorrhoids, denies bleeding from rectum, denies diverticulitis, denies constipation, denies diarrhea, denies loss of stool control, and denies hernias. Kidney/Bladder: The patient denies kidney stones, NOTES urine infections, and denies bloody urine. Skin: The patient NOTES a history of skin cancer, denies bleeding/changing moles, and denies a history of skin rash. Neurologic: The patient denies a history of epilepsy/convulsions, denies headaches, denies head/spinal injuries, and denies stroke/TIA. Psychiatric: The patient denies psychiatric medications, denies depression, and denies voices, denies substance abuse. Endocrine: The patient denies thyroid disorders, denies diabetes, and denies hormonal problems. Hematologic: The patient denies a history of bruising, denies bleeding, and NOTES anemia, denies blood clots. Infections: The patient denies a history of measles and mumps, denies rheumatic fever, and denies sexually transmitted diseases. Musculoskeletal: The patient denies back pain/injury, NOTES back problems, denies sciatica, NOTES knee/foot trouble, denies arthritis, or denies gout. When was patient's last Mammogram screening? N/A Last Colonoscopy: 2013 NILDA Munoz Richard T, MD 04/03/2024 7:13 PM Signed HISTORY AND PHYSICAL Reginald Vaughn 1950 REFERRING PHYSICIAN: Dixon Valadez MD CHIEF COMPLAINT: Consult and Hernia HPI: Reginald is a 73 year old male with a complaint of a bulge and discomfort in his prior supraumbilical incision. The patient first noticed a hernia this summer which was smaller but he at the time noted some discomfort in this area with lifting, straining, and coughing. The symptoms have increased, over the past few months. He notes the site is much larger than it was before. He notes a chronic dull pain. He states it reduces when he lays back down but pushes back out. He states he has trouble doing exercise due to the discomfort. He notes no changes in his bowel function and no obstructive symptoms. The patient underwent a robotic prostatectomy in 2020. This was followed with radiation. He had a follow-up PET CT scan in 2021 which when reviewing the CAT scan images demonstrated was felt to be a small incisional hernia at the midline robotic port site which is certainly grown over time based on clinical evaluation. The patient was seen by his primary care physician who felt the patient has a hernia. Reginald was referred for evaluation and treatment. The patient is being seen by me today at the request of Dr. Dixon Valadez MD for my opinion and advice regarding increasingly enlarging and symptomatic incisional hernia. PAST MEDICAL HISTORY Diagnosis Date Arthritis Bladder stones BPH (benign prostatic hyperplasia) CAD (coronary artery disease) Cancer (HCC) skin ca History of colon polyps 07/24/2013 Mixed hyperlipidemia Prostate cancer (HCC) Type 2 diabetes mellitus, without long-term current use of insulin (HCC) 06/20/2021 PAST SURGICAL HISTORY Procedure Laterality Date ARTHROSCOPY KNEE DIAGNOSTIC W/WO SYNOVIAL BX SPX Right 1989 Meniscal tear CABG (4) VEIN GRAFTS AND ARTERIAL GRAFT(S) 06/08/2021 COLONOSCOPY FLX DX W/COLLJ SPEC WHEN PFRMD 07/24/2013 Colonoscopy COLONOSCOPY FLX DX W/COLLJ SPEC WHEN PFRMD 09/15/2016 Colonoscopy COLSC FLX W/RMVL OF TUMOR POLYP LESION SNARE TQ 12/30/2019 PAST SURGICAL HISTORY OF Right 2015 repair biceps te (more content not included)... Normal [facility] CNOVon 03-24-2024 CNOV Office Visit (FAMPWS ) -- REGINALD VAUGHN ([id number]) 1950 M Date Time Provider Department 03/24/24 12:40 PM DIXON VALADEZ During your visit today, we recorded the following information about you: Pulse Respiration Blood pressure Weight 74/minute 16/minute 124/74 108.6 kg Dixon Valadez MD 03/24/2024 2:49 PM Signed Chief Complaint Patient presents with: Abdominal Pain: Protrusion just above the belly button HPI Reginald Vauhgn is a 73 year old male who presents here today for abdominal pain. Pt c/o abdominal pain and protrusion just above the belly button that he states has grown since his last visit in November which at that time the protrusion wasn't bothering him. Rated pain 2/10, dull throbbing, occ sharp pain with pushing the protrusion in. Pain worsens with abdominal exercises, more noticeable when sitting or standing. Occ nausea with it. Past medical history, appointments, medications, allergies reviewed. Previous Medical History PAST MEDICAL HISTORY Diagnosis Date Arthritis Bladder stones BPH (benign prostatic hyperplasia) CAD (coronary artery disease) Cancer (HCC) skin ca History of colon polyps 07/24/2013 Mixed hyperlipidemia Prostate cancer (HCC) Type 2 diabetes mellitus, without long-term current use of insulin (HCC) 06/20/2021 Previous Surgical History PAST SURGICAL HISTORY Procedure Laterality Date ARTHROSCOPY KNEE DIAGNOSTIC W/WO SYNOVIAL BX SPX Right 1989 Meniscal tear CABG (4) VEIN GRAFTS AND ARTERIAL GRAFT(S) 06/08/2021 COLONOSCOPY FLX DX W/COLLJ SPEC WHEN PFRMD 07/24/2013 Colonoscopy COLONOSCOPY FLX DX W/COLLJ SPEC WHEN PFRMD 09/15/2016 Colonoscopy COLSC FLX W/RMVL OF TUMOR POLYP LESION SNARE TQ 12/30/2019 PAST SURGICAL HISTORY OF Right 2015 repair biceps tendon ROTATOR CUFF REPAIR Left 04/18/2013 Family History FAMILY HISTORY Problem Relation Age of Onset Diabetes Mother Emphysema Father Asbestosis Diabetes Brother Asthma Brother Patient Allergies ALLERGIES Allergen Reactions Ozempic [Semaglutid* Diarrhea Keflex [Cephalexin] Other: See Comments Joint Pain Current Medications Current Outpatient Medications on File Prior to Visit Medication Sig tirzepatide (MOUNJARO) 15 mg/0.5 mL pen injector Inject 15 mg subcutaneously one time a week. metFORMIN ER (GLUCOPHAGE XR) 500 mg 24 hr tablet Take 1 tablet by mouth two times a day with meals. Lancets Test blood sugar(s) 3 times daily. Dx: Type 2 DM - Controlled E11.9 Insulin: Yes blood sugar diagnostic (FREESTYLE LITE STRIPS) test strip Test blood sugar(s) 3 times daily. Dx: Type 2 DM - Controlled E11.9. Insulin: Yes. Lancing Device with Lancets Use with blood glucose test three times a day. Insulin Dep? Yes atorvastatin (LIPITOR) 40 mg tablet Take 1 tablet by mouth once daily. folic acid 1 mg tablet Take 1 tablet by mouth once daily. metoprolol tartrate, short acting, (LOPRESSOR) 50 mg tablet Take 1 tablet by mouth every 12 hours. LISINOPRIL ORAL Take 10 mg by mouth. Blood-Glucose Meter (TRUE METRIX AIR GLUCOSE METER) Test blood sugar(s) 3 times daily. Dx: Type 2 DM - Controlled E11.9 Insulin: Yes Blood Pressure Monitor CHECK vital signs daily or as needed aspirin 81 mg chewable tablet Take 1 tablet by mouth once daily. Take one ASPIRIN daily for life. acetaminophen (TYLENOL) 500 mg tablet Take 2 tablets by mouth four times daily. (Patient taking differently: Take 1,000 mg by mouth two times a day.) No current facility-administered medications on file prior to visit. Social History Social History Tobacco Use Smoking status: Former Current packs/day: 0.00 Types: Cigarettes Quit date: 07/29/2010 Years since quittin.6 Smokeless tobacco: Never Tobacco comments: years Vaping Use Vaping status: Never Used Substance Use Topics Alcohol use: Yes Comment: rarely Drug use: No EXAM: BP 124/74 Pulse 74 Resp 16 Wt 108.6 kg (239 lb 6.7 oz) BMI 35.36 kg/m? General Appearance: Well appearing, alert, in no acute distress, well-hydrated, well nourished. and Overweight. Abdomen: Abd wall hernia superior and to left of umbilicus Health Maintenance List BP Controlled (<130/80) Never done Dilated Retinal Exam due on 09/06/2023 Diabetic Foot Exam due on 11/19/2023 Influenza Vaccine(1) due on 12/16/2023 Covid-19 Vaccine( season) due on 12/16/2023 Shingrix Vaccine(1 of 2) due on 11/19/2024 HbA1C due on 05/18/2024 Urine Albumin:Creatinine Ratio due on 11/15/2024 LDL Cholesterol due on 11/15/2024 Depression Screening due on 11/19/2024 Anxiety Screening due on 11/19/2024 Colorectal Cancer Screening due on 12/29/2024 Annual PCP Team Chronic Disease Visit due on 03/24/2025 DTaP,Tdap,Td Vaccine(2 - Td or Tdap) due on 05/24/2027 Abdominal Aortic Aneurysm Screening Completed Advance Directive Discussion Complet (more content not included)... Normal [facility] CNOVon 02-14-2024 CNOV Office Visit (AKURFGarrett ) -- REGINALD VAUGHN ([id number]) 1950 M Date Time Provider Department 02/14/24 9:15 AM RAJAT العراقي JR During your visit today, we recorded the following information about you: Pulse Blood pressure 85/minute 124/86 Rajat العراقي Jr., MD 02/14/2024 11:22 AM Signed ESTABLISHED PATIENT OFFICE VISIT HPI Reginald Gonzalezger is a 73 year old male who presents sp turp 07/29. 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 Voiding. pvr 524. ua +. 09/03/20: Office cysto with well resected prostatic fossa 09/29/20 - Had UDS on 09/23. Showed GOLDMAN. Was able to void 250cc of 500. Feels like getting sensation back. No more gross hematuria. No flank pain. 11/03/20: Had CIC teaching after last visit (16 Coude BID). - pvr's still 500+. Path discussed today from turp 12/08/2020: Patient still straight cathing BID. Is getting out some sediment at the end of catheterizations. No recent UTIs. Intermittent hematuria which is mild. He is able to void in between catheterizations and believes this is improving. Had CT pelvis and bone scan which were negative for metastatic disease. Has not had recent PSA. 02/09/21: doing well. Has continued to self cath bid in the morning and night. Catheter was placed today and urine culture sent. Finished course of bactrim yesterday and refilled new script. Denies any current issues. 03/24/21 - cath out today. cath'd easily. 04/01/2021 - S/p RALP and PLND on 02/21/2021. Catheter was removed on 03/24/2021. Patient began having R scrotal pain on 03/25. Went to ED and was diagnosed with UTI and had scrotal US which demonstrated R epididymo-orchitis. He was started on abx and kept in holding for ~48 hours. Patient believes he is slowly improving. He still has R scrotal swelling but this seems to be improving. He still has 7 days remaining of levofloxacin. No fevers or chills. He had hirsch catheter inserted while inpatient due to the swelling and inability to straight cath. 04/14/21 - r epididymo-orchitis much improved. Still on abx 04/28/21 - post op psa 5.81. cathing for very small amounts. Nearly continent. 07/28/21 - since last seen had NSTEMI. Got cabg x4. Much improved. In retention at the time. Voiding ok now. Nearly continent. psa 07/05 4.49. received lupron x 6 months today. Decipher low risk. Score 0.41. will get radiation. 01/04/22 - since last seen had uti. Still cathing once a week. Amounts are minimal. Voiding well. Luts controlled. Incontinence controlled. Done with xrt. No recent psa. Got one lupron. Not supposed to get anymore 07/13/22 - doing great since last seen. Psa <0.02. luts controlled. Minimal robert. Feels well overall. No fever. No uti. 01/25/23 - doing well since last seen. Psa <0.02. minimal robert. No fever. No uti. 08/02/23 - doing great since last seen. Minimal robert. Psa <0.02. no fever. No uti. 02/14/24 - doing great since last seen. Minimal robert. Psa <0.02. no fever. No uti LAB: Creatinine Date Value Ref Range Status 11/16/2023 0.78 0.73 - 1.22 mg/dL Final PSA (ng/mL) Date Value 02/01/2024 <0.02 07/04/2023 <0.02 03/03/2023 <0.02 01/08/2023 <0.02 04/28/2022 <0.02 06/27/2021 4.49 04/26/2021 5.81 12/08/2020 7.85 Glucose, Urine (no units) Date Value 06/05/2021 Negative Bilirubin, Urine (no units) Date Value 06/05/2021 Negative Ketones, Urine (no units) Date Value 06/05/2021 Negative Specific [place], Ur (no units) Date Value 06/05/2021 1.012 Hemoglobin/Blood,Ur (no units) Date Value 06/05/2021 Negative pH, Urine (no units) Date Value 06/05/2021 6.0 Protein, Urine (no units) Date Value 06/05/2021 Negative Nitrites (no units) Date Value 06/05/2021 Negative WBC, Urine (no units) Date Value 06/05/2021 0-5 /HPF MEDICATIONS: Lancets Test blood sugar(s) 3 times daily. Dx: Type 2 DM - Controlled E11.9 Insulin: Yes blood sugar diagnostic (FREESTYLE LITE STRIPS) test strip Test blood sugar(s) 3 times daily. Dx: Type 2 DM - Controlled E11.9. Insulin: Yes. metFORMIN ER (GLUCOPHAGE XR) 500 mg 24 hr tablet Take 1 tablet by mouth two times a day with meals. Lancing Device with Lancets Use with blood glucose test three times a day. Insulin Dep? Yes tirzepatide (MOUNJARO) 15 mg/0.5 mL pen injector Inject 15 mg subcutaneously one time a week. atorvastatin (LIPITOR) 40 mg tablet Take 1 tablet by mouth once daily. folic acid 1 mg tablet Take 1 tablet by mouth once daily. metoprolol tartrate, short acting, (LOPRESSOR) 50 mg tablet Take 1 tablet by mouth every 12 hours. LISINOPRIL ORAL Take 10 mg by mouth. Blood-Glucose Meter (TRUE METRIX AIR GLUCOSE METER) Test blood sugar(s) 3 times daily. Dx: Type 2 DM - Controlled E11.9 Insulin: Yes acetaminophen (TYLENOL) 500 mg tablet Take 2 tablets by mouth four times daily. (Patient taking differently: Take 1, (more content not included)... Normal [facility] UA DIP, URINE (POC)on 2023 BILIRUBIN UA (POCT) Negative Negative [facility] CLARITY UA (POCT) Clear [facility] COLOR UA (POCT) Yellow [facility] GLUCOSE UA (POCT) Negative Negative mg/dL [facility] Hemoglobin Ql (U) Negative Negative [facility] KETONE UA (POCT) Negative Negative mg/dL [facility] LEUKOCYTES UA (POCT) Negative Negative [facility] NITRITE UA (POCT) Negative Negative [facility] PH UA (POCT) 5.5 4.5 - 8.0 [facility] Protein Ql (U) Negative Negative mg/dL [facility] SPECIFIC GRAVITY UA (POCT) 1.025 1.005 - 1.030 [facility] UROBILINOGEN UA (POCT) 0.2 Joanna l E.U./dL [facility] Location:[facility], [address] [place] [address], [address] [place] [address] POINT OF CARE [facility] PSA SerPl-mCncon 02-01-2024 Prostate specific Ag [Mass/Vol] ng/mL Normal <2.60 [facility] Comment on above: Order Comment: Speci men Type: BLOOD SPECIMENOrdering Facility: [facility] Address: [address] [place] [address] Result Comment: Nikunj torres PSA test methodology used is the Electrochemiluminescence Immunoassay by [employer]. Total PSA values by differing methodologies cannot be interchanged. Performed By: #### 2 [id number] ####[facility] LABCLIA [id number] [place] [address] [place] Stress Reporton 01-02-2024 Stress Report [facility] [address] [place] [address] MR#: [id number] Acct: [id number] Name: REGINALD VAUGHN Rep #: [id number] 02 : 1950 73 From: Amado Espinosa MD Primary Care: Dr. 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 The baseline ECG demonstrated sinus rhythm. The peak pharmacologic ECG demonstrated no ischemic changes. Occasional PVCs noted postinfusion. There was no complaint of chest discomfort during pharmacologic infusion or recovery. The patient was injected with 14.1 millicuries of technetium 99m Cardiolite and subsequently rest SPECT Cardiolite nuclear imaging was obtained in the horizontal long, vertical long, and short axis views. The patient underwent pharmacologic (Regadenoson) evaluation. The patient was injected with 43.9 millicuries of technetium 99m Cardiolite and subsequently stress SPECT Cardiolite nuclear imaging was obtained in the horizontal long, vertical long, and short axis views. A gated Cardiolite study at peak stress was obtained. The examination was stopped secondary to completion of protocol. Rest and stress SPECT Cardiolite nuclear imaging status post realignment, normalization, and attenuation correction demonstrate decreased tracer uptake in the inferior wall at rest which is mildly worsened post pharmacological stress. The gated images reveal inferior hypokinesis. The reported LVEF is 59%. Impression: 1. Pharmacologic (Regadenoson) evaluation 2. Peak pharmacologic ECG with no ischemic changes. 3. Occasional PVCs noted. 5. Inferior perfusion defect compatible with previous nontransmural infarct with mild jess-infarct ischemia. 6. The gated Cardiolite study reports an LVEF of 59%. This note was generated with [employer] software. It may contain incorrect words, spelling, and punctuation that were not noted in checking the note before signing. 01/02/241243 Date Amado Espinosa MD CC: DANETTE Scott; Dr. Dixon Valadez MD Date Dictated: 01/02/241241 Date Transcribed: 01/02/241241 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: MARITZA Signed Normal [facility] UA DIP, URINE (POC)on 2023 BILIRUBIN UA (POCT) Negative Negative Anuj [facility] CLARITY UA (POCT) Clear [facility] COLOR UA (POCT) Yellow [facility] GLUCOSE UA (POCT) Negative Negative mg/dL [facility] Hemoglobin Ql (U) Negative Negative [facility] KETONE UA (POCT) Negative Negative mg/dL [facility] LEUKOCYTES UA (POCT) Negative Negative [facility] NITRITE UA (POCT) Negative Negative [facility] PH UA (POCT) 5.5 4.5 - 8.0 [facility] Protein Ql (U) Negative Negative mg/dL [facility] SPECIFIC GRAVITY UA (POCT) >=1.030 1.005 - 1.030 [facility] UROBILINOGEN UA (POCT) 0.2 E.U./dL Joanna l E.U./dL [facility] Basophil percentageOrdered B y: Zohra Oconnell on 05-01-2022 Bilirubin [Mass/Vol] 0.40 mg/dL 0.20-1.00 [facility] Comment on above: For patients on eltr ombopag therapy, use of Dimension [place] TBIL is not recommended. Chloride [Moles/Vol] 106 mmol/L 98-107 [facility] Cholesterol [Mass/Vol] 149 mg/dL <200 [facility] Comment on above: <200 mg/dL Desirable 200-240 mg/dL Borderline >240 mg/dL High Risk Glucose [Mass/Vol] 101 mg/dL 74-106 [facility] Comment on above: Fasting Glucose resu lt from 100 to 125 mg/dL suggests IMPAIRED HOMEOSTASIS per A.D.A. criteria. Potassium [Moles/Vol] 4.1 mmol/L 3.5-5.1 [facility] Protein [Mass/Vol] 7.0 g/dL 6.4-8.2 [facility] Sodium [Moles/Vol] 140 mmol/L 136-145 [facility] Triglyceride [Mass/Vol] 139 mg/dL <199 [facility] Comment on above: The drugs N-Acetylcy steine and Metamizole may falsely depress this assay.Serum Triglycerides Reference Interval Normal <150 mg/dL Borderline high 150 - 199 mg/dL High 200 - 499 mg/dL Very High > or = 500 mg/dL Direct bilirubinOrdered By: Zohra Oconnell on 05-01-2022 Bilirubin.direct [Mass/Vol] 0.08 mg/dL 0.00-0.30 [facility] - Chemistry and C hemistry - challengeOrdered By: Zohra Oconnell on 05-01-2022 ALP [Catalytic activity/Vol] 96 U/L 45-117 [facility] ALT [Catalytic activity/Vol] 17 U/L 16-61 [facility] CO2 [Moles/Vol] 25.0 mmol/L 21.0-32.0 [facility] Globulin (S) [Mass/Vol] 3.8 g/dL 2.2-4.2 [facility] Urea nitrogen/Creatinine [Mass ratio] 19.2 mg/mg 10-20 [facility] - Hematology and Cell countson 05-01-2022 HbA1c (Bld) [Mass fraction] 5.4 % 4.2-6.3 [facility] No Panel InformationOrdered By: Zohra Oconnell on 05-01-2022 Estimated GFR (MDRD) Amer 117 mL/min >60 [facility] Comment on above: GFR Calc Estimated GFR (MDRD) Non-Af Amer 97 mL/min >60 [facility] Comment on above: Non- GFR Calc Serum or plasma albumin sally urement (mass/volume)Ordered By: Zohra Oconnell on 05-01-2022 Albumin [Mass/Vol] 3.2 g/dL 3.2-5.0 [facility] Serum or plasma albumin/glob ulin mass ratioOrdered By: Zohra Oconnell on 05-01-2022 Albumin/Globulin [Mass ratio] 0.8 {ratio} 0.9-2.4 [facility] Serum or plasma calcium sally urement (mass/volume)Ordered By: Zohra Oconnell on 05-01-2022 Calcium [Mass/Vol] 9.4 mg/dL 8.5-10.1 [facility] Serum or plasma cholesterol in HDL measurement (mass/volume)Ordered By: Zohra Oconnell on 05-01-2022 Cholesterol in HDL [Mass/Vol] 44 mg/dL >40 [facility] Comment on above: The drugs N-Acetylcy steine and Metamizole may falsely depress this assay. Reference Range HDL <40 mg/dL Low HDL Cholesterol HDL >or= 60 mg/dL High HDL Cholesterol Serum or plasma cholesterol in VLDL measurement (mass/volume)Ordered By: Zohra Oconnell on 05-01-2022 Cholesterol in VLDL [Mass/Vol] 28 mg/dL 5-40 [facility] Serum or plasma creatinine m easurement (mass/volume)Ordered By: Zohra Oconnell on 05-01-2022 Creatinine [Mass/Vol] 0.83 mg/dL 0.70-1.30 [facility] Comment on above: The validity of the calculated GFR & GFRAA in patients over 70 years has not been determined. Clinical correlation is essential. Serum or plasma low density lipoprotein (LDL) cholesterol measurement (mass/volume)Ordered By: Zohra Oconnell on 05-01-2022 Cholesterol in LDL [Mass/Vol] 77 mg/dL 0-130 [facility] Serum or plasma urea nitroge n measurement (mass/volume)Ordered By: Zohra Oconnell on 05-01-2022 Urea nitrogen [Mass/Vol] 16 mg/dL 7-18 [facility] Thin prep Papanicolaou smear with manual screeningOrdered By: Zohra Oconnell on 05-01-2022 Thin prep Papanicolaou smear with manual screening 17 U/L 15-37 [facility] Thin prep Papanicolaou smear with manual screening 9 5-15 [facility] UA DIP, URINE (POC)on 2021 BILIRUBIN UA (POCT) Negative Negative [facility] CLARITY UA (POCT) Clear [facility] COLOR UA (POCT) Yellow [facility] GLUCOSE UA (POCT) Negative Negative mg/dL [facility] HEMOGLOBIN/BLOOD UA (POCT) Moderate Abnormal Negative [facility] KETONE UA (POCT) Negative Negative mg/dL [facility] LEUKOCYTES UA (POCT) Large Abnormal Negative [facility] NITRITE UA (POCT) Negative Negative [facility] PH UA (POCT) 5.5 4.5 - 8.0 [facility] Protein Ql (U) 100 mg/dL Abnormal Negative mg/dL [facility] SPECIFIC GRAVITY UA (POCT) 1.025 1.005 - 1.030 [facility] UROBILINOGEN UA (POCT) 0.2 E.U./dL Joanna l E.U./dL [facility] Laboratory - Hematology and Cell countson 11-07-2021 HbA1c (Bld) [Mass fraction] 5.3 % 4.2-6.3 [facility] Work Phone: Basophil percentageon 2021 Bilirubin [Mass/Vol] 0.70 mg/dL 0.20-1.00 [facility] Work Phone: Comment on above: For patients on eltr ombopag therapy, use of Dimension [place] TBIL is not recommended. Cholesterol [Mass/Vol] 146 mg/dL <200 [facility] Work Phone: Comment on above: <200 mg/dL Desirable 200-240 mg/dL Borderline >240 mg/dL High Risk Protein [Mass/Vol] 7.0 g/dL 6.4-8.2 [facility] Work Phone: Triglyceride [Mass/Vol] 128 mg/dL <199 [facility] Work Phone: Comment on above: The drugs N-Acetylcy steine and Metamizole may falsely depress this assay.Serum Triglycerides Reference Interval Normal <150 mg/dL Borderline high 150 - 199 mg/dL High 200 - 499 mg/dL Very High > or = 500 mg/dL Direct bilirubinon 2 Bilirubin.direct [Mass/Vol] 0.17 mg/dL 0.00-0.30 [facility] Work Phone: Laboratory - Chemistry and C hemistry - challengeon 10-25-2021 ALP [Catalytic activity/Vol] 78 U/L 45-117 [facility] Work Phone: ALT [Catalytic activity/Vol] 19 U/L 16-61 [facility] Work Phone: Globulin (S) [Mass/Vol] 3.5 g/dL 2.2-4.2 [facility] Work Phone: Serum or plasma albumin sally urement (mass/volume)on 10-25-2021 Albumin [Mass/Vol] 3.5 g/dL 3.2-5.0 [facility] Work Phone: Serum or plasma cholesterol in HDL measurement (mass/volume)on 10-25-2021 Cholesterol in HDL [Mass/Vol] 41 mg/dL >40 [facility] Work Phone: Comment on above: The drugs N-Acetylcy steine and Metamizole may falsely depress this assay. Reference Range HDL <40 mg/dL Low HDL Cholesterol HDL >or= 60 mg/dL High HDL Cholesterol Serum or plasma cholesterol in VLDL measurement (mass/volume)on 10-25-2021 Cholesterol in VLDL [Mass/Vol] 26 mg/dL 5-40 [facility] Work Phone: Serum or plasma low density lipoprotein (LDL) cholesterol measurement (mass/volume)on 10-25-2021 Cholesterol in LDL [Mass/Vol] 79 mg/dL 0-130 [facility] Work Phone: Thin prep Papanicolaou smear with manual screeningon 10-25-2021 Thin prep Papanicolaou smear with manual screening 16 U/L 15-37 [facility] Work Phone: MRI PROSTATE WO/W IVCONon [facility] UA DIP, URINE (POC)on 2021 BILIRUBIN UA (POCT) Negative Negative [facility] CLARITY UA (POCT) Clear [facility] COLOR UA (POCT) Yellow [facility] GLUCOSE UA (POCT) Negative Negative mg/dL [facility] HEMOGLOBIN/BLOOD UA (POCT) Negative Negative [facility] KETONE UA (POCT) Negative Negative mg/dL [facility] LEUKOCYTES UA (POCT) Small Abnormal Negative [facility] NITRITE UA (POCT) Negative Negative [facility] PH UA (POCT) 5.5 4.5 - 8.0 [facility] Protein Ql (U) Negative Negative mg/dL [facility] SPECIFIC GRAVITY UA (POCT) 1.020 1.005 - 1.030 [facility] UROBILINOGEN UA (POCT) 0.2 E.U./dL Joanna l E.U./dL [facility] NM PET/CT PROSTATE WHOLE BOD Y IMAGINGon 07-18-2021 [facility] XR CHEST 2V FRONTAL/LATon [facility] Activated partial thrombopla stin time (aPTT) in platelet poor plasma by coagulation aon 06-04-2021 aPTT Coag (PPP) [Time] 67.9 s 24.1-36.2 [facility] Work Phone: Basophil percentageon 2021 Chloride [Moles/Vol] 108 mmol/L 98-107 [facility] Work Phone: Glucose [Mass/Vol] 131 mg/dL 74-106 [facility] Work Phone: Comment on above: Fasting Glucose resu lt greater than or equal to 126 mg/dL suggests DIABETES MELLITUS per A.D.A. criteria. Potassium [Moles/Vol] 3.8 mmol/L 3.5-5.1 [facility] Work Phone: Sodium [Moles/Vol] 140 mmol/L 136-145 [facility] Work Phone: Laboratory - Chemistry and C hemistry - challengeon 06-04-2021 CO2 [Moles/Vol] 27.0 mmol/L 21.0-32.0 [facility] Work Phone: Urea nitrogen/Creatinine [Mass ratio] 19.6 mg/mg 10-20 [facility] Work Phone: No Panel Informationon 06-04 Estimated Creatinine Clearance Calc 79.01 ml/min [facility] Work Phone: Estimated GFR (MDRD) Amer 112 mL/min >60 [facility] Work Phone: Comment on above: GFR Calc Estimated GFR (MDRD) Non-Af Amer 92 mL/min >60 [facility] Work Phone: Comment on above: Non- GFR Calc Serum or plasma calcium sally urement (mass/volume)on 06-04-2021 Calcium [Mass/Vol] 8.5 mg/dL 8.5-10.1 [facility] Work Phone: Serum or plasma creatinine m easurement (mass/volume)on 06-04-2021 Creatinine [Mass/Vol] 0.87 mg/dL 0.70-1.30 [facility] Work Phone: Comment on above: The validity of the calculated GFR & GFRAA in patients over 70 years has not been determined. Clinical correlation is essential. Serum or plasma urea nitroge n measurement (mass/volume)on 06-04-2021 Urea nitrogen [Mass/Vol] 17 mg/dL 7-18 [facility] Work Phone: Thin prep Papanicolaou smear with manual screeningon 06-04-2021 Thin prep Papanicolaou smear with manual screening 5 5-15 [facility] Work Phone: No Panel Informationon 06-02 SARS-CoV-2 Antigen (Rapid) [facility] Work Phone: Absolute lymphocyte counton 06-01-2021 Lymphocytes Auto (Unsp spec) [#/Vol] 1.12 10*3/uL 0.83-4.51 [facility] Work Phone: Basophil percentageon 2021 Basophils/100 WBC (Bld) 0.5 % 0-1 [facility] Work Phone: Eosinophils/100 WBC (Bld) 5.8 % 0-5 [facility] Work Phone: Neutrophils (Bld) [#/Vol] 4.2 10*3/uL 2.0-7.7 [facility] Work Phone: Neutrophils/100 WBC (Bld) 66.8 % 47-70 [facility] Work Phone: WBC (Bld) [#/Vol] 6.3 10*3/uL 4.4-11.0 [facility] Work Phone: Blood erythrocytes count (nu mber/volume)on 06-01-2021 RBC (Bld) [#/Vol] 3.69 10*6/uL 4.6-6.2 [facility] Work Phone: Blood hemoglobin measurement (mass/volume)on 06-01-2021 Hemoglobin (Bld) [Mass/Vol] 10.2 g/dL 13.0-16.5 [facility] Work Phone: Blood lymphocytes/100 leukoc yteson 06-01-2021 Lymphocytes/100 WBC (Bld) 17.7 % 19-41 [facility] Work Phone: Blood monocytes/100 leukocyt eson 06-01-2021 Monocytes/100 WBC (Bld) 8.7 % 0-10 [facility] Work Phone: Blood platelet mean volumeon 06-01-2021 Platelet mean volume (Bld) [Entitic vol] 9.5 fL 6.2-12.0 [facility] Work Phone: Determination of erythrocyte mean corpuscular volume (MCV)on 06-01-2021 MCV (RBC) [Entitic vol] 83.7 fL 80-94 [facility] Work Phone: Hematocrit Auto (Bld) [Volum e fraction]on 06-01-2021 Hematocrit (Bld) [Volume fraction] 30.9 % 40-54 [facility] Work Phone: Laboratory - Hematology and Cell countson 06-01-2021 Erythrocyte distribution width (RBC) [Entitic vol] 46.4 fL 35.1-43.9 [facility] Work Phone: Erythrocyte distribution width (RBC) [Ratio] 15.3 % 11.6-14.6 [facility] Work Phone: Immature granulocytes/100 WBC (Bld) 0.500 % 0.0-0.9 [facility] Work Phone: Comment on above: IG% - Immature Granu locytes (promyelocytes, myelocytes and metamyelocytes) > 1% indicates that a LEFT SHIFT is Present. MCH (RBC) [Entitic mass] 27.6 pg 27.0-32.0 [facility] Work Phone: Nucleated RBC/100 WBC (Bld) [Ratio] 0 % 0-5 [facility] Work Phone: MCHC Auto (RBC) [Mass/Vol]on 06-01-2021 MCHC (RBC) [Mass/Vol] 33.0 g/dL 32-36 [facility] Work Phone: Platelets bldon 06-01-2021 Platelets (Bld) [#/Vol] 232 10*3/uL 150-450 [facility] Work Phone: Laboratory - Chemistry and C hemistry - challengeon 05-31-2021 Natriuretic peptide B (Bld) [Mass/Vol] 519.0 pg/mL 0-100 [facility] Work Phone: No Panel Informationon 05-31 Troponin I High Sensitivity 58 pg/mL 3.0-78.0 [facility] Work Phone: Comment on above: Please Note: [place] t Units and Gender Specific Reference Ranges. For more information see Policy Stat Procedure [place] High Sensitivity Troponin (TNIH) and attachments. CT ABD/PEL WO IVCONon 2020 CT ABD/PEL WO IVCON Final Report DATE OF EXAM: Jul 11 2020 3:03AM [facility] 0531 - CT ABD/PEL WO IVCON / PROCEDURE REASON: Flank pain, stone disease suspected Physician Interpretation EXAMINATION: CT ABDOMEN AND PELVIS WITHOUT IV CONTRAST CLINICAL HISTORY: Left flank pain for 3 days. Stone disease suspected. TECHNIQUE: Non-IV contrast imaging of the abdomen and pelvis was performed using standard technique, scanning from just above the dome of the diaphragm to the symphysis pubis. Unenhanced imaging is limited for the evaluation of some intra-abdominal and pelvic pathology. MQ: [id number] Contrast: IV: None CT Radiation dose: Integrated Dose-length product (DLP) for this visit = 1770.[address] Dose Reduction Employed: Automated exposure control (AEC) COMPARISON: None. RESULT: Lack of intravenous contrast material limits assessment of the solid abdominal viscera. Within this limitation the following observations are made: Abdomen / Pelvis: Liver: Unremarkable. Biliary: Gallbladder is nondistended. Spleen: No splenomegaly. Pancreas: Unremarkable. Adrenals: Normal. Kidneys: Right: There is moderate right renal collecting system dilation ureterectasis extending to the urinary bladder without obstructive etiology identified, possibly due to back pressure from markedly distended urinary bladder and displacement of the left ureterovesical junction anteriorly. Exophytic 1.7 cm cyst arising from the posterior interpolar region of the right kidney. No right urinary tract stones. Left: Marked dilation of left superior renal pole moiety of a duplicated collecting system with associated ureterectasis extending to the urinary bladder. Possible obstructing stone versus phlebolith at the superior pole ureteral insertion on series 2 image 44. There is marked thinning of the superior pole renal cortex compatible with chronic obstructive uropathy. No collecting system dilation of the left inferior pole moiety. The inferior pole ureter appears to insert on left posterior lateral urinary bladder diverticulum. Urinary bladder: Marked distention of the urinary bladder suggesting urinary retention or chronic urinary bladder outlet obstruction. Layering small stones versus calcific debris within the left posterior lateral diverticulum and dependent urinary bladder. GI Tract: Stomach is decompressed. No small bowel dilation. Normal appendix. Colon is decompressed. Few right-sided diverticula without evidence of acute diverticular inflammation. Lymph Nodes: No lymphadenopathy. Mesentery/peritoneum: No ascites. Retroperitoneum: No mass. Vasculature: No abdominal aortic or iliac artery aneurysm. Pelvis: Prostate gland is mildly enlarged. Numerous phleboliths in the pelvis. Bones/Soft Tissues: No aggressive lytic or sclerotic osseous lesions. Multilevel degenerative changes of the lower thoracic and lumbar spine. Lower thorax: Heavy atherosclerotic calcification of the visualized coronary arteries. Calcification of the mitral and aortic valves. Visualized lung bases are grossly clear. Media Planner (topogram) images: No significant findings. IMPRESSION: Marked dilation of the urinary bladder suggesting urinary retention versus chronic urinary bladder outlet obstruction. Layering stones in the urinary bladder. 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 Significant dilation of the left superior pole renal collecting system and ureter with possible obstructing stone at the left superior pole ureterovesical junction versus adjacent phlebolith. Moderate right renal collecting system dilation ureterectasis which is likely secondary to distended urinary bladder and lateral displacement of the right ureterovesical origin due to marked distention of the urinary bladder. No dilation of left inferior pole renal collecting system. The left inferior pole ureter appears to insert on left posterior lateral urinary bladder diverticulum. 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 Additional chronic findings as noted above. 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: PSCB Transcribe Date/Time: Jul 11 2020 3:12A Dictated by : JONO KHANNA MD This examination was interpreted and the report reviewed and electronically signed by: JONO KHANNA MD on Jul 11 2020 3:31AM EST Normal [facility] Vital Signs Date Time Vital Sign Value Performing Clinician Facility 12-29-2024 16:29-0400 Body temperature 98.2 [degF] Dr. Dixon Valadez MD Work Phone: [facility] 12-29-2024 16:29-0400 Diastolic blood pressure 79 mm[Hg] Dr. Dixon Valadez MD Work Phone: [facility] 12-29-2024 16:29-0400 Heart rate 83 /min Dr. Dixon Valadez MD Work Phone: [facility] 12-29-2024 16:29-0400 Respiratory rate 19 /min Dr. Dixon Valadez MD Work Phone: [facility] 12-29-2024 16:29-0400 SaO2% (BldA) [Mass fraction] 95 % Dr. Dixon Valadez MD Work Phone: [facility] 12-29-2024 16:29-0400 Systolic blood pressure 98 mm[Hg] Dr. Dixon Valadez MD Work Phone: [facility] 12-29-2024 14:19-0400 Body height 175.[address] Dixon Valadez MD Work Phone: [facility] 12-29-2024 14:19-0400 Body mass index (BMI) [Ratio] 34.4 kg/m2 Dr. Dixon Valadez MD Work Phone: [facility] 12-29-2024 14:19-0400 Body weight [address] Dixon Valadez MD Work Phone: [facility] 10-03-2024 14:49-0400 Body mass index (BMI) [Ratio] 34.06 kg/m2 Harriet Rocky THERAPY ASSISTANT.SUPPORT SERVICE TECH Work Phone: [facility] 10-03-2024 14:49-0400 Body weight 106.14 kg Harriet Rocky THERAPY ASSISTANT.SUPPORT SERVICE TECH Work Phone: [facility] 10-03-2024 14:49-0400 Diastolic blood pressure 88 mm[Hg] Harriet Rocky THERAPY ASSISTANT.SUPPORT SERVICE TECH Work Phone: [facility] 10-03-2024 14:49-0400 Heart rate 72 /min Harriet Rocky THERAPY ASSISTANT.SUPPORT SERVICE TECH Work Phone: [facility] 10-03-2024 14:49-0400 Respiratory rate 14 /min Harriet Rocky THERAPY ASSISTANT.SUPPORT SERVICE TECH Work Phone: [facility] 10-03-2024 14:49-0400 SaO2% (BldA) [Mass fraction] 99 % Harriet Rocky THERAPY ASSISTANT.SUPPORT SERVICE TECH Work Phone: [facility] 10-03-2024 14:49-0400 Systolic blood pressure 156 mm[Hg] Harriet Rocky THERAPY ASSISTANT.SUPPORT SERVICE TECH Work Phone: [facility] 06-18-2024 12:59-0500 Diastolic blood pressure 90 mm[Hg] Vickie Luna MD Work Phone: [facility] 06-18-2024 12:59-0500 Heart rate 100 /min Vickie Luna MD Work Phone: [facility] 06-18-2024 12:59-0500 SaO2% (BldA) [Mass fraction] 98 % Vickie Luna MD Work Phone: [facility] 06-18-2024 12:59-0500 Systolic blood pressure 153 mm[Hg] Vickie Luna MD Work Phone: [facility] 05-22-2024 08:47-0500 Body mass index (BMI) [Ratio] 34.01 kg/m2 Dixon Valadez MD Work Phone: [facility] 05-22-2024 08:47-0500 Body weight 106 kg Dixon Valadez MD Work Phone: [facility] 05-22-2024 08:47-0500 Diastolic blood pressure 80 mm[Hg] Dixon Valadez MD Work Phone: [facility] 05-22-2024 08:47-0500 Heart rate 78 /min Dixon Valadez MD Work Phone: [facility] 05-22-2024 08:47-0500 Respiratory rate 16 /min Dixon Valadez MD Work Phone: [facility] 05-22-2024 08:47-0500 Systolic blood pressure 140 mm[Hg] Dixon Valadez MD Work Phone: [facility] 05-20-2024 08:52-0500 Body height 176.5 cm [facility] 05-20-2024 08:52-0500 Body mass index (BMI) [Ratio] 33.91 kg/m2 [facility] 05-20-2024 08:52-0500 Body weight 105.69 kg [facility] 04-02-2024 15:52-0500 Body mass index (BMI) [Ratio] 35.29 kg/m2 Vickie Luna MD Work Phone: [facility] 04-02-2024 15:52-0500 Body weight 108.41 kg Vickie Luna MD Work Phone: [facility] 04-02-2024 15:52-0500 Diastolic blood pressure 85 mm[Hg] Vickie Luna MD Work Phone: [facility] 04-02-2024 15:52-0500 Heart rate 77 /min Vickie Luna MD Work Phone: [facility] 04-02-2024 15:52-0500 SaO2% (BldA) [Mass fraction] 98 % Vickie Luna MD Work Phone: [facility] 04-02-2024 15:52-0500 Systolic blood pressure 152 mm[Hg] Vickie Luna MD Work Phone: [facility] 03-24-2024 12:26-0500 Body mass index (BMI) [Ratio] 35.36 kg/m2 Dixon Valadez MD Work Phone: [facility] 03-24-2024 12:26-0500 Body weight 108.6 kg Dixon Valadez MD Work Phone: [facility] 03-24-2024 12:26-0500 Diastolic blood pressure 74 mm[Hg] Dixon Valadez MD Work Phone: [facility] 03-24-2024 12:26-0500 Heart rate 74 /min Dixon Valadez MD Work Phone: [facility] 03-24-2024 12:26-0500 Respiratory rate 16 /min Dixon Valadez MD Work Phone: [facility] 03-24-2024 12:26-0500 Systolic blood pressure 124 mm[Hg] Dixon Valadez MD Work Phone: [facility] 02-14-2024 09:10-0400 Diastolic blood pressure 86 mm[Hg] Rajat العرقاي Jr., MD Work Phone: [facility] 02-14-2024 09:10-0400 Heart rate 85 /min Rajat العراقي Jr., MD Work Phone: [facility] 02-14-2024 09:10-0400 SaO2% (BldA) [Mass fraction] 97 % Rajat العراقي Jr., MD Work Phone: [facility] 02-14-2024 09:10-0400 Systolic blood pressure 124 mm[Hg] Rajat العراقي Jr., MD Work Phone: [facility] 11-20-2023 09:13-0400 Body mass index (BMI) [Ratio] 34.97 kg/m2 Dixon Valadez MD Work Phone: [facility] 11-20-2023 09:13-0400 Body weight 107.4 kg Dixon Valadez MD Work Phone: [facility] 11-20-2023 09:13-0400 Diastolic blood pressure 82 mm[Hg] Dixon Valadez MD Work Phone: [facility] 11-20-2023 09:13-0400 Heart rate 72 /min Dixon Valadez MD Work Phone: [facility] 11-20-2023 09:13-0400 Respiratory rate 18 /min Dixon Valadez MD Work Phone: [facility] 11-20-2023 09:13-0400 Systolic blood pressure 124 mm[Hg] Dixon Valadez MD Work Phone: [facility] 08-02-2023 09:00-0400 Diastolic blood pressure 86 mm[Hg] Rajat العراقي Jr., MD Work Phone: [facility] 08-02-2023 09:00-0400 Heart rate 87 /min Rajat العراقي Jr., MD Work Phone: [facility] 08-02-2023 09:00-0400 SaO2% (BldA) [Mass fraction] 97 % Rajat العراقي Jr., MD Work Phone: [facility] 08-02-2023 09:00-0400 Systolic blood pressure 142 mm[Hg] Rajat العراقي Jr., MD Work Phone: [facility] 05-22-2023 08:59-0500 Body weight 113.4 kg Dixon Valadez MD Work Phone: [facility] 05-22-2023 08:59-0500 Diastolic blood pressure 70 mm[Hg] Dixon Valadez MD Work Phone: [facility] 05-22-2023 08:59-0500 Heart rate 78 /min Dixon Valadez MD Work Phone: [facility] 05-22-2023 08:59-0500 Respiratory rate 16 /min Dixon Valadez MD Work Phone: [facility] 05-22-2023 08:59-0500 Systolic blood pressure 128 mm[Hg] Dixon Valadez MD Work Phone: [facility] 10-03-2022 09:30-0400 Body height 175.26 cm [facility] 10-03-2022 09:30-0400 Body weight 109.86 kg [facility] 05-08-2022 17:12-0500 Body height 175.[address] Dixon Valadez Work Phone: [facility] 05-08-2022 17:12-0500 Body weight 108.[address] Dixon Valadez Work Phone: [facility] 05-01-2022 08:22-0500 Body mass index (BMI) [Ratio] 35.6 kg/m2 Dr. Dxion Valadez Work Phone: [facility] 05-01-2022 08:22-0500 Body temperature 96 [degF] Dr. Dixon Valadez Work Phone: [facility] 05-01-2022 08:22-0500 Body weight 109.[address] Dixon Valadez Work Phone: [facility] 05-01-2022 08:22-0500 Diastolic blood pressure 87 mm[Hg] Dr. Dixon Valadez Work Phone: [facility] 05-01-2022 08:22-0500 Heart rate 73 /min Dr. Dixon Valadez Work Phone: [facility] 05-01-2022 08:22-0500 Respiratory rate 18 /min Dr. Dixon Valadez Work Phone: [facility] 05-01-2022 08:22-0500 SaO2% (BldA) [Mass fraction] 95 % Dr. Dixon Valadez Work Phone: [facility] 05-01-2022 08:22-0500 Systolic blood pressure 146 mm[Hg] Dr. Dixon Valadez Work Phone: [facility] 04-28-2022 08:30-0500 Body weight 108.77 kg Alyssia Rutledge MD Work Phone: [facility] 04-28-2022 08:30-0500 Diastolic blood pressure 89 mm[Hg] Alyssia Rutledge MD Work Phone: [facility] 04-28-2022 08:30-0500 Heart rate 86 /min Alyssia Rutledge MD Work Phone: [facility] 04-28-2022 08:30-0500 SaO2% (BldA) [Mass fraction] 98 % Alyssia Rutledge MD Work Phone: [facility] 04-28-2022 08:30-0500 Systolic blood pressure 141 mm[Hg] Alyssia Rutledge MD Work Phone: [facility] 04-26-2022 08:30-0500 Body mass index (BMI) [Ratio] 35.4 kg/m2 Dr. Dixon Valadez Work Phone: [facility] 04-26-2022 08:30-0500 Body weight 108.[address] Dixon Valadez Work Phone: [facility] 04-26-2022 08:30-0500 Diastolic blood pressure 91 mm[Hg] Dr. Dixon Valadez Work Phone: [facility] 04-26-2022 08:30-0500 Heart rate 88 /min Dr. Dixon Valadez Work Phone: [facility] 04-26-2022 08:30-0500 Respiratory rate 16 /min Dr. Dixon Valadez Work Phone: [facility] 04-26-2022 08:30-0500 SaO2% (BldA) [Mass fraction] 96 % Dr. Dixon Valadez Work Phone: [facility] 04-26-2022 08:30-0500 Systolic blood pressure 145 mm[Hg] Dr. Dixon Valadez Work Phone: [facility] 01-04-2022 12:28-0400 Body weight 100.25 kg Rajat العراقي Jr., MD Work Phone: [facility] 01-04-2022 12:28-0400 Diastolic blood pressure 74 mm[Hg] Rajat العراقي Jr., MD Work Phone: [facility] 01-04-2022 12:28-0400 Respiratory rate 18 /min Rajat العراقي Jr., MD Work Phone: [facility] 01-04-2022 12:28-0400 Systolic blood pressure 112 mm[Hg] Rajat العراقي Jr., MD Work Phone: [facility] 12-30-2021 13:49-0400 Body weight 100.25 kg Maxim Gumaro THERAPY ASSISTANT.SUPPORT SERVICE TECH Work Phone: [facility] 12-30-2021 13:49-0400 Diastolic blood pressure 58 mm[Hg] Maxim Gumaro THERAPY ASSISTANT.SUPPORT SERVICE TECH Work Phone: [facility] 12-30-2021 13:49-0400 Heart rate 84 /min Maxim Gumaro THERAPY ASSISTANT.SUPPORT SERVICE TECH Work Phone: [facility] 12-30-2021 13:49-0400 Respiratory rate 16 /min Maxim Gumaro THERAPY ASSISTANT.SUPPORT SERVICE TECH Work Phone: [facility] 12-30-2021 13:49-0400 Systolic blood pressure 96 mm[Hg] Maxim Gumaro THERAPY ASSISTANT.SUPPORT SERVICE TECH Work Phone: [facility] 12-07-2021 10:26-0400 Body weight 105.69 kg Alyssia Rutledge MD Work Phone: [facility] 11-30-2021 10:32-0400 Body weight 106.14 kg Alyssia Rutledge MD Work Phone: [facility] 11-25-2021 07:44-0400 Body height 176.5 cm Carina Baumann PA-C Work Phone: [facility] 11-25-2021 07:44-0400 Body weight 105.23 kg Carina Kovachik PA-C Work Phone: [facility] 11-25-2021 07:44-0400 Heart rate 89 /min Carina Kovachik PA-C Work Phone: [facility] 11-25-2021 07:44-0400 SaO2% (BldA) [Mass fraction] 99 % Carina Kovachik PA-C Work Phone: [facility] 11-23-2021 18:19-0400 Body weight 105.33 kg Dixon Valadez MD Work Phone: [facility] 11-23-2021 18:19-0400 Diastolic blood pressure 70 mm[Hg] Dixon Valadez MD Work Phone: [facility] 11-23-2021 18:19-0400 Heart rate 68 /min Dixon Valadez MD Work Phone: [facility] 11-23-2021 18:19-0400 Respiratory rate 16 /min Dixon Valadez MD Work Phone: [facility] 11-23-2021 18:19-0400 Systolic blood pressure 122 mm[Hg] Dixon Valadez MD Work Phone: [facility] 11-23-2021 10:24-0400 Body weight 105.69 kg Alyssia Rutledge MD Work Phone: [facility] 11-11-2021 12:45-0400 Body weight 107.5 kg Maxim Gumaro THERAPY ASSISTANT.SUPPORT SERVICE TECH Work Phone: [facility] 11-11-2021 12:45-0400 Diastolic blood pressure 66 mm[Hg] Maxim Gumaro THERAPY ASSISTANT.SUPPORT SERVICE TECH Work Phone: [facility] 11-11-2021 12:45-0400 Heart rate 74 /min Maxim Gumaro THERAPY ASSISTANT.SUPPORT SERVICE TECH Work Phone: [facility] 11-11-2021 12:45-0400 Respiratory rate 14 /min Maxim Gumaro THERAPY ASSISTANT.SUPPORT SERVICE TECH Work Phone: [facility] 11-11-2021 12:45-0400 Systolic blood pressure 117 mm[Hg] Maxim Naik APRN.SUPPORT SERVICE TECH Work Phone: [facility] 11-10-2021 13:27-0400 Body height 175.[address] Dixon Valadez Work Phone: [facility] Work Phone: 11-10-2021 13:27-0400 Body weight 107.[address] Dixon Valadez Work Phone: [facility] Work Phone: 11-09-2021 10:27-0400 Body weight 107.78 kg Alyssia Rutledge MD Work Phone: [facility] 11-08-2021 17:26-0400 Body weight 107.[address] Dixon Valadez Work Phone: [facility] Work Phone: 11-07-2021 14:05-0400 Body mass index (BMI) [Ratio] 35.4 kg/m2 Dr. Dixon Valadez Work Phone: [facility] Work Phone: 11-07-2021 14:05-0400 Body temperature 96 [degF] Dr. Dixon Valadez Work Phone: [facility] Work Phone: 11-07-2021 14:05-0400 Body weight 108.[address] Dixon Valadez Work Phone: [facility] Work Phone: 11-07-2021 14:05-0400 Diastolic blood pressure 70 mm[Hg] Dr. Dixon Valadez Work Phone: [facility] Work Phone: 11-07-2021 14:05-0400 Heart rate 79 /min Dr. Dixon Valadez Work Phone: [facility] Work Phone: 11-07-2021 14:05-0400 Respiratory rate 18 /min Dr. Dixon Valadez Work Phone: [facility] Work Phone: 11-07-2021 14:05-0400 SaO2% (BldA) [Mass fraction] 97 % Dr. Dixon Valadez Work Phone: [facility] Work Phone: 11-07-2021 14:05-0400 Systolic blood pressure 114 mm[Hg] Dr. Dixon Valadez Work Phone: [facility] Work Phone: 11-02-2021 10:41-0400 Body weight 107.96 kg Alyssia Rutledge MD Work Phone: [facility] 10-26-2021 10:33-0400 Body weight 108.05 kg Alyssia Rutledge MD Work Phone: [facility] 10-26-2021 07:31-0400 Body height 175.[address] Dixon Valadez Work Phone: [facility] Work Phone: 10-26-2021 07:31-0400 Body weight 109.[address] Dxion Valadez Work Phone: [facility] Work Phone: 10-25-2021 08:27-0400 Body mass index (BMI) [Ratio] 35.4 kg/m2 Dr. Dixon Valadez Work Phone: [facility] Work Phone: 10-25-2021 08:27-0400 Body weight 108.[address] Dixon Valadez Work Phone: [facility] Work Phone: 10-18-2021 13:33-0400 Body weight 110.04 kg Dixon Valadez MD Work Phone: [facility] 10-18-2021 13:33-0400 Diastolic blood pressure 82 mm[Hg] Dixon Valadez MD Work Phone: [facility] 10-18-2021 13:33-0400 Heart rate 78 /min Dixon Valadez MD Work Phone: [facility] 10-18-2021 13:33-0400 Respiratory rate 16 /min Dixon Valadez MD Work Phone: [facility] 10-18-2021 13:33-0400 Systolic blood pressure 128 mm[Hg] Dixon Valadez MD Work Phone: [facility] 09-29-2021 16:47-0400 Body height 175.[address] Dixon Valadez Work Phone: [facility] Work Phone: 09-29-2021 16:47-0400 Body weight 109.[address] Dixon Valadez Work Phone: [facility] Work Phone: 09-27-2021 10:19-0400 Body weight 112.[address] Dixon Valadez Work Phone: [facility] Work Phone: 09-01-2021 08:12-0400 Body weight 112.81 kg Dixon Valadez MD Work Phone: [facility] 09-01-2021 08:12-0400 Diastolic blood pressure 78 mm[Hg] Dixon Valadez MD Work Phone: [facility] 09-01-2021 08:12-0400 Heart rate 68 /min Dixon Valadez MD Work Phone: [facility] 09-01-2021 08:12-0400 Respiratory rate 16 /min Dixon Valadez MD Work Phone: [facility] 09-01-2021 08:12-0400 Systolic blood pressure 128 mm[Hg] Dixon Valadez MD Work Phone: [facility] 08-31-2021 11:06-0400 Body height 175.[address] Dixon Valadez Work Phone: [facility] Work Phone: 08-31-2021 11:06-0400 Body weight 112.[address] Dixon Valadez Work Phone: [facility] Work Phone: 08-29-2021 15:14-0400 Body weight 114.[address] Dixon Valadez Work Phone: [facility] Work Phone: 08-29-2021 15:14-0400 Body weight 114.[address] Dixon Valadez Work Phone: [facility] Work Phone: 08-15-2021 10:05-0400 Body mass index (BMI) [Ratio] 38.3 kg/m2 Dr. Dixon Valadez Work Phone: [facility] Work Phone: 08-15-2021 10:05-0400 Body temperature 96.9 [degF] Dr. Dixon Valadez Work Phone: [facility] Work Phone: 08-15-2021 10:05-0400 Body weight 114.[address] Dixon Valadez Work Phone: [facility] Work Phone: 08-15-2021 10:05-0400 Diastolic blood pressure 86 mm[Hg] Dr. Dixon Valadez Work Phone: [facility] Work Phone: 08-15-2021 10:05-0400 Heart rate 63 /min Dr. Dixon Valadez Work Phone: [facility] Work Phone: 08-15-2021 10:05-0400 Respiratory rate 18 /min Dr. Dixon Valadez Work Phone: [facility] Work Phone: 08-15-2021 10:05-0400 SaO2% (BldA) [Mass fraction] 99 % Dr. Dixon Valadez Work Phone: [facility] Work Phone: 08-15-2021 10:05-0400 Systolic blood pressure 130 mm[Hg] Dr. Dixon Valadez Work Phone: [facility] Work Phone: 08-15-2021 10:05-0400 Body height 172.[address] Dixon Valadez Work Phone: [facility] Work Phone: 08-15-2021 10:05-0400 Body mass index (BMI) [Ratio] 38.3 kg/m2 Dr. Dixon Valadez Work Phone: [facility] Work Phone: 08-15-2021 10:05-0400 Body temperature 96.9 [degF] Dr. Dixon Valadez Work Phone: [facility] Work Phone: 08-15-2021 10:05-0400 Body weight 114.[address] Dixon Valadez Work Phone: [facility] Work Phone: 08-15-2021 10:05-0400 Diastolic blood pressure 86 mm[Hg] Dr. Dixon Valadez Work Phone: [facility] Work Phone: 08-15-2021 10:05-0400 Heart rate 63 /min Dr. Dixon Valadez Work Phone: [facility] Work Phone: 08-15-2021 10:05-0400 Respiratory rate 18 /min Dr. Dixon Valadez Work Phone: [facility] Work Phone: 08-15-2021 10:05-0400 SaO2% (BldA) [Mass fraction] 99 % Dr. Dixon Valadez Work Phone: [facility] Work Phone: 08-15-2021 10:05-0400 Systolic blood pressure 130 mm[Hg] Dr. Dixon Valadez Work Phone: [facility] Work Phone: 08-01-2021 08:27-0400 Body mass index (BMI) [Ratio] 36 kg/m2 Dr. Dixon Valadez Work Phone: [facility] Work Phone: 08-01-2021 08:27-0400 Body temperature 98.2 [degF] Dr. Dixon Valadez Work Phone: [facility] Work Phone: 08-01-2021 08:27-0400 Body weight 110.[address] Dixon Valadez Work Phone: [facility] Work Phone: 08-01-2021 08:27-0400 Diastolic blood pressure 80 mm[Hg] Dr. Dixon Valadez Work Phone: [facility] Work Phone: 08-01-2021 08:27-0400 Heart rate 65 /min Dr. Dixon Valadez Work Phone: [facility] Work Phone: 08-01-2021 08:27-0400 Respiratory rate 18 /min Dr. Dixon Valadez Work Phone: [facility] Work Phone: 08-01-2021 08:27-0400 SaO2% (BldA) [Mass fraction] 97 % Dr. Dixon Valadez Work Phone: [facility] Work Phone: 08-01-2021 08:27-0400 Systolic blood pressure 137 mm[Hg] Dr. Dixon Valadez Work Phone: [facility] Work Phone: 08-01-2021 08:27-0400 Body mass index (BMI) [Ratio] 36 kg/m2 Dr. Dixon Valadez Work Phone: [facility] Work Phone: 08-01-2021 08:27-0400 Body temperature 98.2 [degF] Dr. Dixon Valadez Work Phone: [facility] Work Phone: 08-01-2021 08:27-0400 Body weight 110.[address] Dixon Valadez Work Phone: [facility] Work Phone: 08-01-2021 08:27-0400 Diastolic blood pressure 80 mm[Hg] Dr. Dixon Valadez Work Phone: [facility] Work Phone: 08-01-2021 08:27-0400 Heart rate 65 /min Dr. Dixon Valadez Work Phone: [facility] Work Phone: 08-01-2021 08:27-0400 Respiratory rate 18 /min Dr. Dixon Valadez Work Phone: [facility] Work Phone: 08-01-2021 08:27-0400 SaO2% (BldA) [Mass fraction] 97 % Dr. Dixon Valadez Work Phone: [facility] Work Phone: 08-01-2021 08:27-0400 Systolic blood pressure 137 mm[Hg] Dr. Dixon Valadez Work Phone: [facility] Work Phone: 08-01-2021 08:18-0400 Body height 175.[address] Dixon Valadez Work Phone: [facility] Work Phone: 07-28-2021 09:25-0400 Body height 176.5 cm Rajat العراقي Jr., MD Work Phone: [facility] 07-28-2021 09:25-0400 Body weight 106.59 kg Rajat العراقي Jr., MD Work Phone: [facility] 07-28-2021 09:25-0400 Diastolic blood pressure 74 mm[Hg] Rajat العراقي Jr., MD Work Phone: [facility] 07-28-2021 09:25-0400 Systolic blood pressure 122 mm[Hg] Rajat العراقي Jr., MD Work Phone: [facility] 07-19-2021 11:43-0400 Body temperature 97.9 [degF] Debra oNble RN Work Phone: [facility] 07-19-2021 11:43-0400 Body weight 106.59 kg Debra Noble RN Work Phone: [facility] 07-19-2021 11:43-0400 Diastolic blood pressure 78 mm[Hg] Debra Noble RN Work Phone: [facility] 07-19-2021 11:43-0400 Heart rate 72 /min Debra Noble RN Work Phone: [facility] 07-19-2021 11:43-0400 Respiratory rate 16 /min Debra Noble RN Work Phone: [facility] 07-19-2021 11:43-0400 SaO2% (BldA) [Mass fraction] 98 % Debraoleg Noble RN Work Phone: [facility] 07-19-2021 11:43-0400 Systolic blood pressure 122 mm[Hg] Debra Noble RN Work Phone: [facility] 07-15-2021 12:52-0400 Body mass index (BMI) [Ratio] 36 kg/m2 Dr. Dixon Valadez Work Phone: [facility] Work Phone: 07-15-2021 12:52-0400 Body weight 110.[address] Dixon Valadez Work Phone: [facility] Work Phone: 07-15-2021 12:52-0400 Diastolic blood pressure 80 mm[Hg] Dr. Dixon Valadez Work Phone: [facility] Work Phone: 07-15-2021 12:52-0400 Heart rate 65 /min Dr. Dixon Valadez Work Phone: [facility] Work Phone: 07-15-2021 12:52-0400 Respiratory rate 18 /min Dr. Dixon Valadez Work Phone: [facility] Work Phone: 07-15-2021 12:52-0400 SaO2% (BldA) [Mass fraction] 97 % Dr. Dixon Valadez Work Phone: [facility] Work Phone: 07-15-2021 12:52-0400 Systolic blood pressure 137 mm[Hg] Dr. Dixon Valadez Work Phone: [facility] Work Phone: 07-15-2021 12:52-0400 Body mass index (BMI) [Ratio] 36 kg/m2 Dr. Dixon Valadez Work Phone: [facility] Work Phone: 07-15-2021 12:52-0400 Body weight 110.[address] Dixon Valadez Work Phone: [facility] Work Phone: 07-15-2021 12:52-0400 Diastolic blood pressure 80 mm[Hg] Dr. Dixon Valadez Work Phone: [facility] Work Phone: 07-15-2021 12:52-0400 Heart rate 65 /min Dr. Dixon Valadez Work Phone: [facility] Work Phone: 07-15-2021 12:52-0400 Respiratory rate 18 /min Dr. Dixon Valadez Work Phone: [facility] Work Phone: 07-15-2021 12:52-0400 SaO2% (BldA) [Mass fraction] 97 % Dr. Dixon Valadez Work Phone: [facility] Work Phone: 07-15-2021 12:52-0400 Systolic blood pressure 137 mm[Hg] Dr. Dixon Valadez Work Phone: [facility] Work Phone: 07-14-2021 13:09-0400 Body height 175.3 cm Zohra Miglionico THERAPY ASSISTANT.SUPPORT SERVICE TECH Work Phone: [facility] 07-14-2021 13:09-0400 Body weight 106.59 kg Zohra Miglionico THERAPY ASSISTANT.SUPPORT SERVICE TECH Work Phone: [facility] 07-14-2021 13:09-0400 Diastolic blood pressure 64 mm[Hg] Zohra Miglionico THERAPY ASSISTANT.SUPPORT SERVICE TECH Work Phone: [facility] 07-14-2021 13:09-0400 Heart rate 60 /min Zohra Miglionico THERAPY ASSISTANT.SUPPORT SERVICE TECH Work Phone: [facility] 07-14-2021 13:09-0400 Respiratory rate 18 /min Zohra Miglionico THERAPY ASSISTANT.SUPPORT SERVICE TECH Work Phone: [facility] 07-14-2021 13:09-0400 SaO2% (BldA) [Mass fraction] 97 % Zohra Miglionico THERAPY ASSISTANT.SUPPORT SERVICE TECH Work Phone: [facility] 07-14-2021 13:09-0400 Systolic blood pressure 102 mm[Hg] Zohra Miglionico THERAPY ASSISTANT.SUPPORT SERVICE TECH Work Phone: [facility] 07-13-2021 11:49-0400 Body temperature 97.81 [degF] Yanira Paez RN Work Phone: [facility] 07-13-2021 11:49-0400 Diastolic blood pressure 74 mm[Hg] Yanira Paez RN Work Phone: [facility] 07-13-2021 11:49-0400 Heart rate 70 /min Yanira Paez RN Work Phone: [facility] 07-13-2021 11:49-0400 Respiratory rate 20 /min Yanira Paez RN Work Phone: [facility] 07-13-2021 11:49-0400 SaO2% (BldA) [Mass fraction] 97 % Yanira Paez RN Work Phone: [facility] 07-13-2021 11:49-0400 Systolic blood pressure 126 mm[Hg] Yanira Paez RN Work Phone: [facility] 06-04-2021 16:55-0500 Body temperature 97.8 [degF] Dr. Dixon Valadez Work Phone: [facility] Work Phone: 06-04-2021 16:55-0500 Diastolic blood pressure 78 mm[Hg] Dr. Dixon Valadez Work Phone: [facility] Work Phone: 06-04-2021 16:55-0500 Heart rate 83 /min Dr. Dixon Valadez Work Phone: [facility] Work Phone: 06-04-2021 16:55-0500 Respiratory rate 20 /min Dr. Dixon Valadez Work Phone: [facility] Work Phone: 06-04-2021 16:55-0500 SaO2% (BldA) [Mass fraction] 100 % Dr. Dixon Valadez Work Phone: [facility] Work Phone: 06-04-2021 16:55-0500 Systolic blood pressure 158 mm[Hg] Dr. Dixon Valadez Work Phone: [facility] Work Phone: 05-31-2021 12:21-0500 Body mass index (BMI) [Ratio] 36.5 kg/m2 Dr. Dixon Valadez Work Phone: [facility] Work Phone: 05-31-2021 12:21-0500 Body weight 113.[address] Dixon Valadez Work Phone: [facility] Work Phone: Encounters Encounter Date Encounter Type Care Provider Facility Start: 12-29-2024 Evaluation and manag ement of inpatient Dr. Hailee Hull MD -Progressive Care Unit Work Phone: Start: 12-26-2024 End: 12-26-[address] Dixon Valadez MD Work Phone: -Physical Therapy Start: 12-26-2024 End: 12-26-[address] Jose Delarosa MD -Physical Therapy Work Phone: Start: 12-08-2024 End: 12-08-2024 Refill Maxim Naik APRN.SUPPORT SERVICE TECH Work Phone: [facility] Comment on above: Refill Request Start: 11-21-2024 End: 11-21-2024 ambulatory DIXON VALADEZ Facility:[facility] [place] Start: 11-20-2024 End: 11-20-2024 ambulatory DIXON TREVINOWEST BEND Facility:[facility] [place] Start: 11-11-2024 End: 11-11-2024 Admission to same day surgery center Vickie Luna MD Work Phone: Ambulatory Surgery Start: 11-11-2024 End: 11-11-2024 ambulatory Vickie Luna MD Work Phone: Ambulatory Surgery Start: 10-03-2024 End: 10-03-2024 Patient encounter procedure Harriet Cope APRN.SUPPORT SERVICE TECH Work Phone: General Surgery Comment on above: History of colonic p olyps (Primary Dx); Screening for colon cancer Start: 10-03-2024 End: 10-03-2024 ambulatory DIXON VALADEZ Facility:[facility] [place] Start: 09-30-2024 End: 10-02-2024 ambulatory Dixon Valadez MD Work Phone: [facility] [place] Start: 09-30-2024 End: 10-02-2024 Patient encounter procedure Dixon Valadez MD Work Phone: [facility] Comment on above: I got this message f rom [facility] Start: 08-27-2024 End: 08-28-2024 3 comp foot exam completed Dixon Valadez MD Work Phone: [facility] Comment on above: Diabetic foot exam Start: 08-27-2024 End: 08-28-2024 ambulatory Dixon Valadez MD Work Phone: [facility] [place] Start: 08-13-2024 End: 08-13-2024 Telephone encounter Rajat العراقي MD Work Phone: Urology Comment on above: Results Start: 08-13-2024 End: 08-13-2024 ambulatory DIXON VALADEZ Facility:[facility] [place] Start: 08-08-2024 End: 08-08-2024 ambulatory HARRIETT HARMON Facility:[facility] [place] Start: 06-24-2024 End: 06-24-2024 ambulatory Lucy BINGHAM Facility:[facility] Start: 06-18-2024 End: 06-18-2024 ambulatory DIXON VALADEZ Facility:[facility] [place] Start: 06-18-2024 End: 06-18-2024 Patient encounter procedure Vickie uLna MD Work Phone: General Surgery Comment on above: Abdominal wall herni a (Primary Dx) Start: 06-05-2024 End: 06-05-2024 Telephone encounter Dixon Valadez MD Work Phone: [facility] [place] Comment on above: Insurance Authorizat ion Refill Request; Insu teresa Authorization Start: 06-02-2024 End: 06-02-2024 ambulatory DIXON VALADEZ Facility:[facility] Start: 05-26-2024 End: 05-26-2024 Telephone encounter Narinder Blum PA-C Work Phone: [facility] Provider Adult Start: 05-22-2024 End: 05-22-2024 Patient encounter procedure Dixon Valadez MD Work Phone: Family [facility] [place] Comment on above: Type 2 diabetes ulisses itus with other specified complication, without long-term current use of insulin (HCC) (Primary Dx); Chronic systolic (congestive) heart failure (HCC); Prostate cancer (HCC); 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); Mixed hyperlipidemia; Hypertension, unspecified type Start: 05-22-2024 End: 05-22-2024 ambulatory DIXON VALADEZ Facility:[facility] [place] Start: 05-22-2024 Encounter for other preprocedural examination DIXON VALADEZ [facility] Start: 05-20-2024 End: 05-20-2024 Admission to establishment Pac Main [facility] Pre Anesthesia Start: 05-20-2024 End: 05-20-2024 ambulatory DIXON VALADEZ Facility:[facility] [place] Start: 05-20-2024 End: 05-20-2024 Anesthesia consultation [facility]est[facility] Comment on above: Pre-op evaluation (P rimary Dx); 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); Aortic valve stenosis, etiology of cardiac valve disease unspecified; History of prostate cancer; Former smoker; Chronic systolic (congestive) heart failure (HCC); Mixed hyperlipidemia; Type 2 diabetes mellitus with other specified complication, without long-term current use of insulin (HCC); SCCA (squamous cell carcinoma) of skin; Basal cell carcinoma (BCC) of skin of left lower extremity including hip; Snoring; Morbid obesity (HCC); Hypertension, unspecified type Start: 05-20-2024 End: 05-20-2024 Preprocedural examination done [facility] Work Phone: Start: 05-19-2024 End: 05-19-2024 ambulatory DXION VALADEZ Facility:[facility] [place] Start: 05-15-2024 End: 05-16-2024 Refill Dixon Valadez MD Work Phone: [facility] [place] Comment on above: Refill Request Start: 05-09-2024 End: 05-09-2024 ambulatory DIXON VALADEZ Facility:[facility] [place] Start: 04-25-2024 End: 05-02-2024 Admission to same day surgery center Vickie Luna MD Work Phone: General Surgery Comment on above: Scheduling Surgery Start: 04-25-2024 End: 05-02-2024 ambulatory Dixon Valadez MD Work Phone: [facility] [place] Start: 04-25-2024 End: 04-25-2024 Patient encounter procedure Dixon Valadez MD Work Phone: [facility] [place] Comment on above: Lab work appointment requested by Rory Start: 04-07-2024 End: 04-07-2024 ambulatory DIXON VALADEZ Facility:[facility] [place] Start: 04-07-2024 End: 04-07-2024 Subsequent hospital visit by physician Prisca [facility] (I-Stat) Work Phone: Cat Scan Comment on above: Abdominal wall herni a [K43.9] Start: 04-02-2024 End: 04-02-2024 Patient encounter procedure Vickie Luna MD Work Phone: General Surgery Comment on above: Abdominal wall herni a Start: 04-02-2024 End: 04-02-2024 ambulatory DIXON VALADEZ Facility:[facility] [place] Start: 03-24-2024 End: 03-24-2024 ambulatory [facility] Facility:[facility] [place] Start: 03-24-2024 End: 03-24-2024 Patient encounter procedure Dixon Valadez MD Work Phone: [facility] [place] Comment on above: Abdominal wall herni a (Primary Dx); Need for vaccination Start: 03-07-2024 End: 03-07-2024 Refill Dixon Valadez MD Work Phone: [facility] [place] Comment on above: Refill Request Start: 02-14-2024 End: 02-14-2024 Patient encounter procedure Rajat العراقي MD Work Phone: [facility] Comment on above: Prostate cancer (HCC ) (Primary Dx) Start: 02-14-2024 End: 02-14-2024 ambulatory RAJAT العراقي JR Facility:[facility] Start: 02-01-2024 End: 02-01-2024 ambulatory DIXON VALADEZ Facility:[facility] [place] Start: 01-24-2024 End: 01-24-2024 Refill Dixon Valadez MD Work Phone: [facility] [place] Comment on above: Refill Request Start: 01-03-2024 ambulatory Adriana Scott [employer]ENTGENOLOGY TEACHER Facili ty:[facility] Start: 01-02-2024 ambulatory Adriana Scott ROENTGENOLOGY TEACHER Facili ty:[facility] Start: 01-02-2024 End: 01-02-2024 ambulatory Adriana Scott NP Facility:[facility] Start: 12-15-2023 End: 12-18-2023 ambulatory Dixon Valadez MD Work Phone: [facility] [place] Comment on above: LISINOPRIL Start: 11-20-2023 End: 11-20-2023 Patient encounter procedure Dixon Valadez MD Work Phone: [facility] [place] Comment on above: Type 2 diabetes ulisses itus without complication, with long-term current use of insulin (HCC) (Primary Dx); Hypertension, unspecified type; Hyperlipidemia, mixed; Coronary artery disease involving navajo coronary artery of navajo heart without angina pectoris; NSTEMI (non-ST elevated myocardial infarction) (HCC); Prostate cancer (HCC); Screening for depression; Encounter for screening examination for other mental health and behavioral disorders; Type 2 diabetes mellitus without complication, without long-term current use of insulin (HCC) Start: 10-25-2023 Refill Maxim MI RN.SUPPORT SERVICE TECH Work Phone: [facility] [place] Comment on above: Refill Request Start: 09-12-2023 End: 09-12-2023 Subsequent hospital visit by physician [facility] Work Phone: Radiology Comment on above: Atherosclerotic hear t disease of navajo coronary artery with other forms of angina pectoris (HCC) [I25.118] Start: 09-11-2023 Telephone encounter Dixon nj MD Work Phone: [facility] [place] Comment on above: Medication Problem ( Lancet Pen broke) Start: 08-02-2023 End: 08-02-2023 Patient encounter procedure Rajat العراقي MD Work Phone: [facility] Comment on above: Prostate cancer (HCC ) (Primary Dx) Start: 07-11-2023 Refill Maxim MI RN.SUPPORT SERVICE TECH Work Phone: [facility] Comment on above: Refill Request Start: 07-02-2023 Telephone encounter Rajat العراقي MD Work Phone: Urology Comment on above: Orders Start: 06-04-2023 Telephone encounter Dixon nj MD Work Phone: [facility] Comment on above: Medication Question Start: 05-22-2023 End: 05-22-2023 Patient encounter procedure Dixon Valadez MD Work Phone: [facility] Comment on above: Type 2 diabetes ulisses itus with other specified complication, without long-term current use of insulin (HCC) (Primary Dx); Mixed hyperlipidemia; Coronary artery disease involving navajo coronary artery of navajo heart without angina pectoris; NSTEMI (non-ST elevated myocardial infarction) (HCC); Prostate cancer (HCC); Obesity, Class II, BMI 35-39.9; Acute pain of right knee; Chronic systolic (congestive) heart failure (HCC); 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); Aortic valve stenosis, etiology of cardiac valve disease unspecified Start: 04-03-2023 Refill Dixon whyte MD Work Phone: [facility] Comment on above: Refill Request Start: 02-09-2023 Refill Dixon whyte MD Work Phone: [facility] Comment on above: Refill Request Start: 01-05-2023 ambulatory Rajat avina MD Work Phone: [facility] Comment on above: PSA test Start: 10-03-2022 End: 10-13-2022 ambulatory [facility] Work Phone: Start: 10-03-2022 End: 10-13-2022 Discharged Recurring [facility] Work Phone: Start: 07-21-2022 Telephone encounter Dixon nj MD Work Phone: Family [facility] Comment on above: Insurance Authorizat ion (Ozempic) Start: 07-20-2022 Telephone encounter Dixon nj MD Work Phone: Family [facility] [place] Comment on above: Medication Problem Start: 07-06-2022 Telephone encounter Dixon nj MD Work Phone: Family [facility] [place] Comment on above: Forms Start: 06-27-2022 Telephone encounter Dixon nj MD Work Phone: [facility] [place] Comment on above: Forms Start: 06-01-2022 Telephone encounter Dixon nj MD Work Phone: [facility] [place] Comment on above: Forms Start: 05-08-2022 End: 05-16-[address] Dixon Valadez Work Phone: [facility] Work Phone: Start: 05-08-2022 End: 05-16-[address] [facility] Start: 05-08-[address] [facility] Start: 05-04-2022 ambulatory Dixon whyte MD Work Phone: [facility] Comment on above: Medications Refill Request Start: 05-01-2022 End: 05-01-[address] Dixon Valadez Work Phone: [facility] Work Phone: Start: 05-01-2022 End: 05-01-[address] Dixon Valadez Work Phone: [facility] Start: 04-28-2022 End: 04-28-2022 Patient encounter procedure Alyssia Rutledge MD Work Phone: [facility] Comment on above: Prostate cancer (HCC ) (Primary Dx) Start: 04-27-2022 Refill Dixon whyte MD Work Phone: [facility] Comment on above: Refill Request Start: 04-27-2022 Refill Dixon whyte MD Work Phone: [facility] Comment on above: Med Change Request Start: 04-26-2022 End: 04-26-[address] Dixon Valadez Work Phone: [facility] Start: 04-18-2022 Telephone encounter Dixon nj MD Work Phone: [facility] Comment on above: Forms ([facility]/Medi care Part D detailed written order. Freestyle lite test strip.) Start: 03-28-2022 ambulatory [facility] [place] Comment on above: Form Start: 03-28-2022 E-mail encounter fro m caregiver [facility] [place] Start: 03-24-2022 Telephone encounter Dixon nj MD Work Phone: [facility] Comment on above: Forms Start: 03-22-2022 Refill Maxim MI RN.SUPPORT SERVICE TECH Work Phone: [facility] Comment on above: Refill Request Lancet refill Start: 03-21-2022 Refill Dixon whyte MD Work Phone: [facility] Comment on above: Refill Request Start: 03-14-2022 E-mail encounter fro m caregiver Rajat العراقي Jr., MD Work Phone: [employer] Start: 03-14-2022 Follow-up encounter Rajat العراقي MD Work Phone: [facility] Comment on above: 1 year follow up Start: 02-24-2022 Refill Maxim MI RN.SUPPORT SERVICE TECH Work Phone: [facility] Comment on above: Refill Request Start: 02-23-2022 Get Medical Advice Dixon silver MD Work Phone: [facility] [place] Comment on above: Medication refill Start: 02-15-2022 Refill Dixon whyte MD Work Phone: [facility] [place] Comment on above: Refill Request Start: 01-31-2022 ambulatory [facility] Provider [facility] [place] Comment on above: Strips Start: 01-31-2022 E-mail encounter fro m caregiver [facility] [place] Start: 01-31-2022 Telephone encounter Dixon nj MD Work Phone: [facility] [place] Comment on above: Medication Problem Start: 01-30-2022 Social Work T[facility] matology/Oncology Start: 01-26-2022 Telephone encounter Dixon nj MD Work Phone: [facility] [place] Comment on above: Medication Problem Start: 01-18-2022 ambulatory Dixon whyte MD Work Phone: [facility] [place] Comment on above: New Rx coverage Reiders Syndrome fla re up Start: 01-16-2022 Refill Dixon whyte MD Work Phone: [facility] [place] Comment on above: Refill Request Freestyle lite test strips Freestyle Lite Strip s 50's Start: 01-10-2022 ambulatory Dixon whyte MD Work Phone: [facility] [place] Comment on above: Attending Physician form Start: 01-04-2022 End: 01-04-2022 Patient encounter procedure Rajat العراقي MD Work Phone: [facility] Comment on above: Prostate cancer (HCC ) (Primary Dx) Start: 12-30-2021 End: 12-30-2021 Office outpatient visit 15 minutes Maxim Naik APRN.CNP Work Phone: [facility] [place] Comment on above: Type 2 diabetes (HCC ) (Primary Dx); JOANNA (acute kidney injury) (HCC) Start: 12-30-2021 Social Work T[facility] Yarbrough matology/Oncology Start: 12-26-2021 Telephone encounter Kiana Chad REDDYSUPPORT SERVICE TECH Work Phone: [facility] Comment on above: Results Start: 12-15-2021 End: 12-15-2021 Subsequent hospital visit by physician [facility] (I-Stat) Work Phone: [facility] Comment on above: Lung nodules [R91.8] Start: 12-14-2021 Patient encounter procedure Alyssia Rutledge MD Work Phone: [facility] Start: 12-14-2021 Radiation Oncology Note Alyssia Rutledge MD Work Phone: [facility] Comment on above: Completion Note Start: 12-11-2021 Refill Dixon whyte MD Work Phone: [facility] Comment on above: Refill Request Start: 12-09-2021 End: 12-09-2021 Subsequent hospital visit by physician Treatment [facility] Comment on above: Malignant neoplasm o f prostate [C61] Start: 12-08-2021 End: 12-08-2021 Social Work Tavia [facility] Hematology/Oncology Comment on above: Malignant neoplasm o f prostate [C61] Start: 12-07-2021 End: 12-07-2021 Patient encounter procedure Alyssia Rutledge MD Work Phone: [facility] Comment on above: Prostate cancer (HCC ) (Primary Dx) Start: 12-07-2021 End: 12-07-2021 Subsequent hospital visit by physician Treatment [facility] Comment on above: Malignant neoplasm o f prostate [C61] Start: 12-06-2021 End: 12-06-2021 Subsequent hospital visit by physician Treatment [facility] Start: 12-05-2021 End: 12-05-2021 Subsequent hospital visit by physician Treatment [facility] Comment on above: Malignant neoplasm o f prostate [C61] Start: 12-02-2021 End: 12-02-2021 Subsequent hospital visit by physician Treatment [facility] Start: 12-01-2021 End: 12-01-2021 Subsequent hospital visit by physician Treatment [facility] Start: 11-30-2021 End: 11-30-2021 Patient encounter procedure Alyssia Rutledge MD Work Phone: [facility] Comment on above: Prostate cancer (HCC ) (Primary Dx) Start: 11-30-2021 End: 11-30-2021 Subsequent hospital visit by physician Treatment [facility] Start: 11-29-2021 Refill Dixon whyte MD Work Phone: [facility] Comment on above: Refill Request Start: 11-28-2021 End: 11-28-2021 Subsequent hospital visit by physician Treatment [facility] Start: 11-25-2021 End: 11-25-2021 Subsequent hospital visit by physician Treatment [facility] Start: 11-25-2021 End: 11-25-2021 Patient encounter procedure Carina Baumann PA-C Work Phone: [facility] Comment on above: Scrotal wall abscess (Primary Dx) Start: 11-24-2021 End: 11-24-2021 Subsequent hospital visit by physician Treatment [facility] Start: 11-23-2021 End: 11-23-2021 Patient encounter procedure Dixon Valadez MD Work Phone: [facility] Comment on above: Cyst of scrotum (Eva magen Dx); Abscess of scrotal wall Start: 11-23-2021 End: 11-23-2021 Patient encounter procedure Alyssia Rutledge MD Work Phone: [facility] Comment on above: Prostate cancer (HCC ) (Primary Dx) Start: 11-23-2021 End: 11-23-2021 Subsequent hospital visit by physician Treatment [facility] Comment on above: Malignant neoplasm o f prostate [C61] Start: 11-22-2021 End: 11-22-2021 Subsequent hospital visit by physician Treatment [facility] Comment on above: Malignant neoplasm o f prostate [C61] Refill Request Start: 11-21-2021 End: 11-21-2021 Subsequent hospital visit by physician Treatment [facility] Comment on above: Malignant neoplasm o f prostate [C61] Start: 11-18-2021 End: 11-18-2021 Subsequent hospital visit by physician Treatment [facility] Comment on above: Malignant neoplasm o f prostate [C61] Start: 11-17-2021 End: 11-17-2021 Subsequent hospital visit by physician Treatment [facility] Comment on above: Malignant neoplasm o f prostate [C61] Start: 11-16-2021 End: 11-16-2021 Subsequent hospital visit by physician Treatment [facility] Comment on above: Malignant neoplasm o f prostate [C61] Start: 11-14-2021 End: 11-14-2021 Subsequent hospital visit by physician Treatment [facility] Start: 11-11-2021 End: 11-11-2021 Office outpatient visit 15 minutes Maxim Naik APRN.CNP Work Phone: [facility] Comment on above: Abscess of scrotal w all (Primary Dx) Start: 11-11-2021 End: 11-11-2021 Subsequent hospital visit by physician Treatment [facility] Comment on above: Malignant neoplasm o f prostate [C61] Start: 11-11-[address] Dixon Valadez Work Phone: [facility] Start: 11-10-2021 End: 11-10-2021 Subsequent hospital visit by physician Treatment [facility] Comment on above: Malignant neoplasm o f prostate [C61] Start: 11-09-2021 End: 11-09-2021 Patient encounter procedure Alyssia Rutledge MD Work Phone: [facility] Comment on above: Prostate cancer (HCC ) (Primary Dx) Start: 11-09-2021 End: 11-09-2021 Subsequent hospital visit by physician Treatment [facility] Comment on above: Malignant neoplasm o f prostate [C61] Start: 11-08-2021 Chart abstracting Dixon bal MD Work Phone: [facility] Comment on above: external report (Car diac H&P) Start: 11-08-2021 End: 11-13-[address] Dixon Valadez Work Phone: [facility] Start: 11-08-2021 End: 11-08-2021 Subsequent hospital visit by physician Treatment [facility] Start: 11-07-2021 End: 11-07-[address] Dixon Valadez Work Phone: [facility] Start: 11-07-2021 End: 11-07-2021 Subsequent hospital visit by physician Treatment [facility] Start: 11-04-2021 End: 11-04-2021 Subsequent hospital visit by physician Treatment [facility] Start: 11-03-2021 End: 11-03-2021 Social Work Tavia [facility] Hematology/Oncology Comment on above: Malignant neoplasm o f prostate [C61] Start: 11-02-2021 End: 11-02-2021 Patient encounter procedure Alyssia Rutledge MD Work Phone: [facility] Comment on above: Prostate cancer (HCC ) (Primary Dx) Start: 11-02-2021 End: 11-02-2021 Subsequent hospital visit by physician Treatment [facility] Comment on above: Malignant neoplasm o f prostate [C61] Start: 11-01-2021 Non-patient / Non-visit Dr. Nilda Valadez Work Phone: [facility] Start: 11-01-2021 End: 11-01-[address] Dixon Valadez Work Phone: [facility] Start: 11-01-2021 End: 11-01-2021 Subsequent hospital visit by physician Treatment [facility] Comment on above: Malignant neoplasm o f prostate [C61] Start: 10-31-2021 End: 10-31-2021 Social Work Tavia [facility] Hematology/Oncology Comment on above: Malignant neoplasm o f prostate [C61] Start: 10-31-[address] Dixon Valadez Work Phone: [facility] Start: 10-28-2021 End: 10-28-2021 Subsequent hospital visit by physician Treatment [facility] Comment on above: Malignant neoplasm o f prostate [C61] Start: 10-27-2021 End: 10-27-2021 Subsequent hospital visit by physician Treatment [facility] Comment on above: Malignant neoplasm o f prostate [C61] Start: 10-26-2021 End: 10-26-2021 Patient encounter procedure Alyssia Rutledge MD Work Phone: [facility] Comment on above: Prostate cancer (HCC ) (Primary Dx) Start: 10-26-2021 End: 10-26-2021 Subsequent hospital visit by physician Treatment [facility] Comment on above: Malignant neoplasm o f prostate [C61] Start: 10-26-[address] Dixon Valadez Work Phone: [facility] Start: 10-25-2021 End: 10-25-[address] Dixon Valadez Work Phone: [facility] Start: 10-25-2021 End: 10-25-2021 Subsequent hospital visit by physician Treatment [facility] Comment on above: Malignant neoplasm o f prostate [C61] Start: 10-25-2021 End: 10-25-[address] Dixon Valadez Work Phone: [facility] Start: 10-24-2021 End: 10-24-2021 Subsequent hospital visit by physician Treatment [facility] Comment on above: Malignant neoplasm o f prostate [C61] Start: 10-21-2021 End: 10-21-2021 Subsequent hospital visit by physician Alyssia Rutledge MD Work Phone: [facility] Comment on above: Malignant neoplasm o f prostate [C61] Start: 10-18-2021 End: 10-18-2021 Patient encounter procedure Dixon Valadez MD Work Phone: [facility] [place] Comment on above: Trochanteric bursiti s of left hip (Primary Dx); S/P CABG x 4; NSTEMI (non-ST elevated myocardial infarction) (HCC); Prostate cancer (HCC); Popping sound of knee joint Start: 10-12-2021 End: 10-13-[address] Dixon [facility] Start: 10-12-[address] Dixon [facility]ade[facility] Start: 10-06-2021 End: 10-06-2021 Subsequent hospital visit by physician Mri 6 [employer] Main Q (I-Stat/1.5t/3t) Work Phone: [facility] Comment on above: Prostate cancer (HCC ) [C61] Start: 09-29-2021 End: 10-13-[address] Dixon [facility] Start: 09-14-2021 Orders Only Alyssia eagle MD Work Phone: [facility] Comment on above: Prostate cancer (HCC ) (Primary Dx) Start: 09-09-2021 End: 09-13-[address] Dixon Valadez [facility] Start: 09-09-[address] Dixon Valadez [facility] Start: 09-01-2021 End: 09-01-2021 Patient encounter procedure Dixon Valadez MD Work Phone: [facility] Comment on above: Type 2 diabetes ulisses itus without complication, without long- term current use of insulin (HCC) (Primary Dx); S/P CABG x 4; NSTEMI (non-ST elevated myocardial infarction) (HCC); Obesity, Class II, BMI 35-39.9; Prostate cancer (HCC); Iron deficiency anemia, unspecified iron deficiency anemia type Start: 08-31-2021 End: 09-13-[address] Dixon [facility] Start: 08-29-2021 Patient encounter procedure Alyssia Rutledge MD Work Phone: [facility] Start: 08-29-2021 Radiation Oncology Note Alyssia Rutledge MD Work Phone: [facility] Comment on above: Simulation Note Treatment Planning Start: 08-29-2021 End: 08-29-2021 Subsequent hospital visit by physician Alyssia Rutledge MD Work Phone: [facility] Comment on above: Malignant neoplasm o f prostate [C61] Start: 08-25-2021 Telephone encounter Dixon nj MD Work Phone: [facility] Comment on above: Medication Problem Start: 08-24-[address] Dixon Valadez [facility] Start: 08-15-2021 End: 08-15-[address] Dixon Valadez Work Phone: [facility] Start: 08-12-2021 End: 08-13-[address] Dixon [facility]ade[facility] Start: 08-08-2021 Refill Dixon whyte MD Work Phone: [facility] Comment on above: Refill Request Start: 08-08-[address] Dixon Valadez [facility] Start: 08-01-2021 End: 08-01-[address] Dixon [facility]ade[facility] Start: 07-28-2021 End: 07-28-2021 Nursing evaluation of patient and report Nurse Urol Manjula Work Phone: [facility] Comment on above: Prostate cancer (HCC ) (Primary Dx) Start: 07-28-2021 End: 07-28-2021 Patient encounter procedure Rajat العراقي MD Work Phone: [facility] Comment on above: Prostate cancer (HCC ) Start: 07-26-2021 Orders Only Rajat avina MD Work Phone: Urology Comment on above: Prostate cancer (HCC ) (Primary Dx) Start: 07-25-2021 Refill Dixon whyte MD Work Phone: [facility] Comment on above: Refill Request Transition Of Care ( TCM [facility] discharge 06-13-21- final follow up) Start: 07-22-2021 Telephone encounter Rajat العراقي MD Work Phone: [facility] Comment on above: Treatment Planning Start: 07-20-2021 Telephone encounter Debra Noble RN Work Phone: [facility] Comment on above: Home Care (dc from [facility]) Cardiac Rehab (refer ral [facility]) Start: 07-19-2021 End: 07-19-2021 Home visit Debra Noble RN Work Phone: [facility] Comment on above: SN AGENCY DC W VISIT Start: 07-18-2021 End: 07-18-2021 Subsequent hospital visit by physician [facility] Comment on above: Prostate cancer (HCC ) [C61] Start: 07-15-2021 Telephone encounter Kiana Bonilla APRN.SUPPORT SERVICE TECH Work Phone: [facility] Comment on above: Returning Patient's Call Start: 07-15-2021 End: 07-15-[address] 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] Start: 07-14-2021 End: 07-14-2021 Patient encounter procedure Zohra Koch APRN.SUPPORT SERVICE TECH Work Phone: [facility] Comment on above: S/P CABG x 4 (Primar y Dx); Type 2 diabetes mellitus without complication, without long-term current use of insulin (HCC) Start: 07-13-2021 End: 07-13-2021 Home visit Yanira Paez RN Work Phone: [facility] Comment on above: SN ROUTINE Start: 07-12-2021 ambulatory Vidhi Eastman RN [facility] Start: 07-12-2021 Follow-up encounter Vidhi Silva mbulatory Care Management Comment on above: Transition Of Care ( [facility] discharge 06-13-21- follow up ) Start: 06-04-2021 Non-patient / Non-visit Dr. Nilda Valadez Work Phone: [facility] Start: 06-03-2021 Non-patient / Non-visit Dr. Nilda Valadez Work Phone: [facility] Start: 06-03-2021 Non-patient / Non-visit Dr. Nilda Valadez Work Phone: [facility] Start: 06-02-2021 End: 06-04-2021 Evaluation and management of inpatient Dr. Dixon Valadez Work Phone: [facility] Start: 06-02-2021 Non-patient / Non-visit Dr. Nilda Valadez Work Phone: [facility] Start: 06-01-2021 Non-patient / Non-visit Dr. Nilda Valadez Work Phone: [facility] Start: 05-31-2021 Non-patient / Non-visit Dr. Nilda Valadez Work Phone: [facility] Start: 05-30-2021 End: 05-30-[address] Dixon Valadez Work Phone: [facility] Start: 05-30-[address] Dixon [facility] Date Procedure Procedure Detail Performing Clinician Start: 12-29-2024 X-ray of chest, PA a nd lateral views Dr. Dixon Valadez MD Work Phone: Start: 12-29-[address] Dixon Valadez MD Work Phone: Start: 12-29-2024 CT cervical spine wi thout contrast Dr. Dixon Valadez MD Work Phone: Start: 12-29-2024 CT of head without contrast Dr. Dixon Valadez MD Work Phone: Start: 05-22-2024 Antibody screen [facility] Comment on above: Order Comment: Speci men Type: BLOOD SPECIMENOrdering Facility: [facility] Address: [address] [place] [address] Performed By: #### T [id number] ####CC MAIN BLOOD BANKCLIA [id number] [place] [address] [place] Start: 03-24-2024 PFIZER-BIONTECH COVI D-19 VACCINE AGE 12+ YR (COMIRNATY) Dixon Valadez MD Work Phone: Start: 02-14-2024 Urnls dip stick/tabl et rgnt auto w/o microscopy Rajat العراقي MD Work Phone: Start: 11-20-2023 Adult depression scr eening assessment Dixon Valadez MD Work Phone: Start: 08-02-2023 Urnls dip stick/tabl et rgnt auto w/o microscopy Rajat العراقي MD Work Phone: Start: 01-04-2022 Urnls dip stick/tabl et rgnt auto w/o microscopy Rajat العراقي MD Work Phone: Start: 10-06-2021 Mri pelvis w/o & w/c ontrast material Alyssia Rutledge MD Work Phone: Start: 09-01-2021 Adult depression scr eening assessment Dixon Valadez MD Work Phone: Start: 07-28-2021 Urnls dip stick/tabl et rgnt auto w/o microscopy Rajat العراقي MD Work Phone: Start: 07-14-2021 Radiologic exam ches t 2 views Kiana Bonilla THERAPY ASSISTANT.SUPPORT SERVICE TECH Work Phone: Start: 06-12-2021 History of coronary artery bypass grafting S/P CABG x 4 Vidhi Eastman RN Start: 06-02-2021 SARS-CoV-2 Antigen (Rapid) Dr. Dixon Valadez Work Phone: Start: 06-01-2021 Nuclear Stress Test - Chemical Dr. Dixon Valadez Work Phone: Start: 05-31-2021 Plain chest X-ray Dr. Payam Valadez Work Phone: Start: 05-17-2021 History of coronary artery bypass grafting History of coronary artery bypass surgery Dr. Dixon Valadez Work Phone: Comment on above: CABG x4- CUI-mid LA D, SVG-PDA, SVG-OM1, SVG[facility]RAMUS [facility] Start: 09-20-2020 History of transuret hral prostatectomy S/P TURP Vidhi Eastman RN Start: 06-19-2020 Adult depression scr eening assessment Vidhi Eastman RN Start: 12-30-2019 Colonoscopy Vidhi delarosa RN History of coronary artery bypass grafting S/P CABG x 4 Zohra Koch THERAPY ASSISTANT.SUPPORT SERVICE TECH Work Phone: History of coronary artery bypass grafting S/P CABG x 4 Dixon Valadez MD Work Phone: History of coronary artery bypass grafting S/P CABG x 4 Dixon Valadez MD Work Phone: Plan of Treatment Date Care Activity Detail Author Start: 05-24-2027 Urine microalbumin profile [facility] Start: 11-21-2025 Hepatitis B surface antibody level LDL Cholesterol [facility] Start: 11-20-2025 Annual PCP Team Civil Rights Investigator balaji Disease Visit Annual PCP Team Chronic Disease Visit [facility] Start: 05-27-2025 End: 05-27-2025 Patient encounter procedure 05/27/2025 8:00 AM EST Office Visit [facility] [place] [address] [facility] [place] [id number] Jose Fishman MD [address] [facility] [place] [place] [address] transfer care/6 month follow up [facility] [place] Comment on above: transfer care/6 kenia h follow up Start: 05-24-2025 Hemoglobin A1c measurement HbA1C [facility] Start: 05-22-2025 Annual PCP Team Civil Rights Investigator balaji Disease Visit Annual PCP Team Chronic Disease Visit [facility] Start: 05-19-2025 Hepatitis B surface antibody level LDL Cholesterol [facility] Start: 03-24-2025 Annual PCP Team Civil Rights Investigator balaji Disease Visit Annual PCP Team Chronic Disease Visit [facility] Start: 03-24-2025 BP Controlled (<130/80) BP Controlle d (<130/80) [facility] Start: 02-25-2025 End: 02-25-2025 Patient encounter procedure 02/25/2025 1:00 PM EST Office Visit [facility] [address] [place] [address] Rajat العراقي Jr., MD [address] [place] [address] 1 year follow up psa prior [facility] Comment on above: 1 year follow up psa prior Start: 02-19-2025 End: 02-19-2025 Patient encounter procedure 02/19/2025 9:00 AM EST Office Visit [facility] [address] [place] [address] Rajat العراقي Jr., MD [address] [place] [address] 1 year follow up psa prior [facility] Comment on above: 1 year follow up psa prior Start: 02-06-2025 End: 02-06-2025 Patient encounter procedure 02/06/2025 8:15 AM EDT Appointment Ambulatory Surgery [address] [place] [address] Vickie Luna MD [address] [place] [address] Screening for colon cancer [Z12.11]; History of colonic polyps [Z86.0100] Ambulatory Surgery Comment on above: Screening for colon cancer [Z12.11]; History of colonic polyps [Z86.0100] Start: 01-31-2025 Glaucoma screening Dilated Retinal E xam [facility] Start: 12-29-2024 Verification routine [facility] Start: 12-29-2024 [facility] Start: 12-29-2024 Admission procedure [facility] Start: 12-29-2024 Hospital admission, emergency, from emergency room, medical nature [facility] Start: 12-29-2024 [facility] Start: 12-29-2024 Colonoscopy COLONOSCOPY [facility] Start: 12-29-2024 COLORECTAL CANCER SCREENING COLORECTAL CANCER SCREENING [facility] Start: 12-29-2024 Screening for malign ant neoplasm of colon [facility] Start: 12-15-2024 Influenza vaccination Influenza Vacc ine (#1) [facility] Start: 11-20-2024 End: 11-20-2024 Patient encounter procedure 11/20/2024 9:00 AM EDT Office Visit Family [facility] [address] [place] [address] Dixon Valadez MD [address] [place] [address] 6 month follow up Family [facility] Comment on above: 6 month follow up Start: 11-19-2024 Annual PCP Team Civil Rights Investigator balaji Disease Visit Annual PCP Team Chronic Disease Visit [facility] Start: 11-19-2024 Anxiety Screening Anxiety Screening [facility] Start: 11-19-2024 End: 02-18-2025 Comprehensive metabolic 2000 panel - Serum or Plasma COMPREHENSIVE METABOLIC PANEL Lab Routine Chronic systolic (congestive) heart failure (HCC) 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) Type 2 diabetes mellitus with other specified complication, without long-term current use of insulin (HCC) Hypertension, unspecified type Expected: 11/19/2024 (Approximate), Expires: 02/18/2025 [facility] Work Phone: Comment on above: Expected: 11/19/2024 (Approximate), Expires: 02/18/2025 Start: 11-19-2024 Depression Screening Depression Scre ening [facility] Start: 11-19-2024 End: 02-18-2025 Hemoglobin A1c in Blood HEMOGLOBIN A1C Lab Routine Type 2 diabetes mellitus with other specified complication, without long-term current use of insulin (HCC) Expected: 11/19/2024 (Approximate), Expires: 02/18/2025 [facility] Comment on above: Expected: 11/19/2024 (Approximate), Expires: 02/18/2025 Start: 11-19-2024 End: 02-18-2025 Lipid 1996 panel - Serum or Plasma LIPID PANEL BASIC Lab Routine Chronic systolic (congestive) heart failure (HCC) 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) Type 2 diabetes mellitus with other specified complication, without long-term current use of insulin (HCC) Hypertension, unspecified type Expected: 11/19/2024 (Approximate), Expires: 02/18/2025 [facility] Comment on above: Expected: 11/19/2024 (Approximate), Expires: 02/18/2025 Start: 11-19-2024 Shingrix Vaccine (1 of 2) Shingrix Vaccine (1 of 2) [facility] Comment on above: Postponed from 10/22 (Declined at this time) Start: 11-19-2024 End: 11-19-2024 Patient encounter procedure 11/19/2024 11:15 AM EDT Appointment Ambulatory Surgery [address] [place] [address] Vickie Luna MD [address] [place] [address] Screening for colon cancer [Z12.11]; History of colonic polyps [Z86.0100] Ambulatory Surgery Comment on above: Screening for colon cancer [Z12.11]; History of colonic polyps [Z86.0100] Start: 11-16-2024 Hemoglobin A1c measurement HbA1C [facility] Start: 11-15-2024 Hepatitis B screening Urine Al bumin:Creatinine Ratio [facility] Start: 11-15-2024 Hepatitis B surface antibody level LDL Cholesterol [facility] Start: 10-03-2024 End: 10-03-2024 Patient encounter procedure 10/03/2024 3:00 PM EDT Office Visit [facility] [address] [facility] [place], [place] [id number] Harriet Cope, THERAPY ASSISTANT.SUPPORT SERVICE TECH [address] [place] [address] Screening for colon cancer [Z12.11] Last colonoscopy 12/2019. Recent Positive cologuard [facility] General Surgery Comment on above: Screening for colon cancer [Z12.11] Last colonoscopy 12/2019. Recent Positive cologuard [facility] Start: 09-22-2024 Covid-19 Vaccine ( season) Covid-19 Vaccine () [facility] Start: 09-12-2024 End: 09-12-2024 Patient encounter procedure 09/12/2024 9:00 AM EDT Office Visit Dermatology [address] [place] [address] Harriett Harmon, THERAPY ASSISTANT.SUPPORT SERVICE TECH [address] [place] [address] web req: annual skin check Dermatology Comment on above: web req: annual skin check Start: 08-13-2024 End: 11-12-2024 Prostate specific Ag [Mass/volume] in Serum or Plasma PROSTATE-SPECIFIC ANTIGEN DIAGNOSTIC Lab Routine Prostate cancer (HCC) Expected: 08/13/2024, Expires: 11/12/2024 [facility] Work Phone: Comment on above: Expected: 08/13/2024 , Expires: 11/12/2024 Start: 06-18-2024 End: 06-18-2024 Patient encounter procedure 06/18/2024 1:00 PM EST Office Visit General Surgery [address] [place] [address] Vickie Luna MD [address] [place] [address] Hernia Repair General Surgery Comment on above: Hernia Repair Start: 06-16-2024 End: 06-16-2024 Patient encounter procedure 06/16/2024 1:30 PM EST Office Visit General Surgery [address] [address] Marylin Brady PA-C [address] [place] [address] Follow up LAPAROSCOPIC HERNIA REPAIR INCISIONAL INITIAL REDUCIBLE W/MESH 3cm-10cm 06/02 General Surgery Comment on above: Follow up LAPAROSCOP IC HERNIA REPAIR INCISIONAL INITIAL REDUCIBLE W/MESH 3cm-10cm 06/02 Start: 06-02-2024 End: 06-02-2024 Admission to same day surgery center 06/02/2024 11:18 AM EST - 06/02/2024 1:24 PM EST Surgery [facility] Surgery [address] [place] [id number] Vickie Luna MD [address] [place] [address] LAPAROSCOPIC HERNIA REPAIR INCISIONAL INITIAL REDUCIBLE W/MESH 3cm-10cm [facility] Comment on above: LAPAROSCOPIC HERNIA REPAIR INCISIONAL INITIAL REDUCIBLE W/MESH 3cm-10cm Start: 06-02-2024 End: 06-02-2024 LAPAROSCOPIC HERNIA REPAIR INCISIONAL INITIAL REDUCIBLE W/MESH 3cm-10cm LAPAROSCOPIC HERNIA REPAIR INCISIONAL INITIAL REDUCIBLE W/MESH 3cm-10cm Abdominal wall hernia 06/02/2024 11:18 AM EST [facility] Start: 06-02-2024 Subsequent hospital visit by physician 06/02/2024 11:18 AM EST Hospital Encounter [facility] Surgery [address] [place] [id number] Vickie Luna MD [address] [place] [address] Abdominal wall hernia [K43.9] [facility] Surgery Comment on above: Abdominal wall herni a [K43.9] Start: 05-22-2024 Annual PCP Team Civil Rights Investigator balaji Disease Visit Annual PCP Team Chronic Disease Visit [facility] Start: 05-22-2024 End: 08-21-2024 Comprehensive metabolic 2000 panel - Serum or Plasma COMPREHENSIVE METABOLIC PANEL Lab Routine Type 2 diabetes mellitus without complication, with long-term current use of insulin (HCC) Hypertension, unspecified type Hyperlipidemia, mixed Expected: 05/22/2024 (Approximate), Expires: 08/21/2024 [facility] Work Phone: Comment on above: Expected: 05/22/2024 (Approximate), Expires: 08/21/2024 Start: 05-22-2024 End: 08-21-2024 Hemoglobin A1c in Blood HEMOGLOBIN A1C Lab Routine Type 2 diabetes mellitus without complication, with long-term current use of insulin (HCC) Expected: 05/22/2024 (Approximate), Expires: 08/21/2024 [facility] Comment on above: Expected: 05/22/2024 (Approximate), Expires: 08/21/2024 Start: 05-22-2024 End: 08-21-2024 Lipid 1996 panel - Serum or Plasma LIPID PANEL BASIC Lab Routine Type 2 diabetes mellitus without complication, with long-term current use of insulin (HCC) Hypertension, unspecified type Hyperlipidemia, mixed Coronary artery disease involving navajo coronary artery of navajo heart without angina pectoris Expected: 05/22/2024 (Approximate), Expires: 08/21/2024 [facility] Comment on above: Expected: 05/22/2024 (Approximate), Expires: 08/21/2024 Start: 05-22-2024 End: 05-22-2024 Patient encounter procedure 05/22/2024 9:20 AM EST Office Visit Family [facility] [address] [place] [phone] Dixon Valadez MD [address] [place] [phone] 6 mo f/u Family [facility] Comment on above: 6 mo f/u Start: 05-22-2024 End: 05-22-2024 ambulatory 05/22/2024 8:45 AM EST Results Only [place] [facility] Draw Station [address] [place] [address] [place] [facility] Start: 05-21-2024 Hepatitis B surface antibody level LDL Cholesterol [facility] Start: 05-20-2024 End: 08-19-2024 CBC W Auto Differential panel - Blood COMPLETE BLOOD COUNT AND DIFFERENTIAL Lab Routine Pre-op evaluation Expected: 05/20/2024, Expires: 08/19/2024 [facility] Work Phone: Comment on above: Expected: 05/20/2024 , Expires: 08/19/2024 Start: 05-20-2024 End: 08-19-2024 TYPE AND SCREEN,30 DAY TYPE AND SCREEN,30 DAY Blood Bank Routine Pre-op evaluation Expected: 05/20/2024, Expires: 08/19/2024 [facility] Comment on above: Expected: 05/20/2024 , Expires: 08/19/2024 Start: 05-20-2024 End: 05-20-2024 Anesthesia consultation 05/20/2024 8:30 AM EST PAT Pre Anesthesia [address] [place] [address] VV [id number] LAPAROSCOPIC HERNIA REPAIR INCISIONAL INITIAL REDUCIBLE W/MESH 3cm-10cm [[id number]] - Abdomen - N/A 06/02 Pre Anesthesia Comment on above: VV [id number] LAPARO SCOPIC HERNIA REPAIR INCISIONAL INITIAL REDUCIBLE W/MESH 3cm-10cm [[id number]] - Abdomen - N/A 06/02 Start: 05-19-2024 End: 05-19-2024 ambulatory 05/19/2024 9:00 AM EST Results Only [place] [facility] Draw Station [address] [facility] [place] [address] lab [facility] Draw Station Comment on above: lab Start: 05-18-2024 Hemoglobin A1c measurement HbA1C [facility] Start: 04-16-2024 Advance Directive Discussion Advance Directive Discussion [facility] Start: 04-02-2024 End: 04-02-2024 Patient encounter procedure 04/02/2024 3:45 PM EST Office Visit General Surgery [address] [place] [address] Vickie Luna MD [address] [place] [address] Abdominal wall hernia [K43.9] General Surgery Comment on above: Abdominal wall herni a [K43.9] Start: 02-14-2024 End: 02-14-2024 Patient encounter procedure 02/14/2024 9:15 AM EDT Office Visit [facility] [address] [place] [id number] Rajat العراقي Jr., MD [address] [place], [place] [phone] 6 months, PSA prior [facility] Comment on above: 6 months, PSA prior Start: 02-06-2024 Annual PCP Team Civil Rights Investigator balaji Disease Visit Annual PCP Team Chronic Disease Visit [facility] Start: 02-01-2024 End: 05-02-2024 Prostate specific Ag [Mass/volume] in Serum or Plasma PROSTATE-SPECIFIC ANTIGEN DIAGNOSTIC Lab Routine Prostate cancer (HCC) Expected: 02/01/2024, Expires: 05/02/2024 [facility] Work Phone: Comment on above: Expected: 02/01/2024 , Expires: 05/02/2024 Start: 02-01-2024 End: 02-01-2024 ambulatory 02/01/2024 9:00 AM EDT Results Only [place] [facility] Draw Station [address] [place] [address] [facility] Start: 12-16-2023 Covid-19 Vaccine ( season) Covid-19 Vaccine ( season) [facility] Start: 12-16-2023 Covid-19 Vaccine ( season) Covid-19 Vaccine ( season) [facility] Start: 12-16-2023 Influenza vaccination Influenza Vacc ine (#1) [facility] Start: 11-20-2023 End: 02-19-2024 ALBUMIN/CREAT RATIO RND UR ALBUMIN/CREAT RATIO RND UR Lab Routine Type 2 diabetes mellitus with other specified complication, without long-term current use of insulin (HCC) Expected: 11/20/2023 (Approximate), Expires: 02/19/2024 [facility] Work Phone: Comment on above: Expected: 11/20/2023 (Approximate), Expires: 02/19/2024 Start: 11-20-2023 End: 02-19-2024 Comprehensive metabolic 2000 panel - Serum or Plasma COMP METABOLIC PANEL Lab Routine Mixed hyperlipidemia Coronary artery disease involving navajo coronary artery of navajo heart without angina pectoris Type 2 diabetes mellitus with other specified complication, without long-term current use of insulin (HCC) Expected: 11/20/2023 (Approximate), Expires: 02/19/2024 [facility] Work Phone: Comment on above: Expected: 11/20/2023 (Approximate), Expires: 02/19/2024 Start: 11-20-2023 End: 02-19-2024 Hemoglobin A1c in Blood HGB A1C Lab Routine Type 2 diabetes mellitus with other specified complication, without long-term current use of insulin (HCC) Expected: 11/20/2023 (Approximate), Expires: 02/19/2024 [facility] Work Phone: Comment on above: Expected: 11/20/2023 (Approximate), Expires: 02/19/2024 Start: 11-20-2023 End: 02-19-2024 Lipid 1996 panel - Serum or Plasma LIPID PANEL BASIC Lab Routine Mixed hyperlipidemia Coronary artery disease involving navajo coronary artery of navajo heart without angina pectoris Expected: 11/20/2023 (Approximate), Expires: 02/19/2024 [facility] Work Phone: Comment on above: Expected: 11/20/2023 (Approximate), Expires: 02/19/2024 Start: 11-20-2023 End: 11-20-2023 Patient encounter procedure 11/20/2023 9:20 AM EDT Office Visit [facility] [address] [place] [id number] Dixon Valadez MD [address] [place] [address] 6 month follow up DM, lipid [facility] [place] Comment on above: 6 month follow up DM , lipid Start: 11-19-2023 3 comp foot exam completed Diabetic Foot Exam [facility] Start: 11-19-2023 Annual PCP Team Civil Rights Investigator balaji Disease Visit Annual PCP Team Chronic Disease Visit [facility] Start: 11-19-2023 Diabetic foot examination Diabetic Foot Exam [facility] Start: 11-19-2023 Hemoglobin A1c measurement HbA1C [facility] Start: 11-16-2023 End: 11-16-2023 ambulatory 11/16/2023 9:00 AM EDT Results Only [facility] [address] [place] [address] lab [facility] Draw [facility] Comment on above: lab Start: 09-12-2023 End: 09-12-2023 Patient encounter procedure 09/12/2023 7:45 AM EDT Appointment Radiology [address] [place] [address] Atherosclerotic heart disease of navajo coronary artery with other forms of eliseo... Radiology Comment on above: Atherosclerotic hear t disease of navajo coronary artery with other forms of eliseo... Start: 09-06-2023 Glaucoma screening Dilated Retinal E xam [facility] Start: 09-06-2023 Hepatitis C antibody , confirmatory test Dilated Retinal Exam [facility] Start: 07-03-2023 End: 10-02-2023 Prostate specific Ag [Mass/volume] in Serum or Plasma PSA/PROSTSPECAG DIAG Lab Routine Prostate cancer (HCC) Expected: 07/03/2023, Expires: 10/02/2023 [facility] Work Phone: Comment on above: Expected: 07/03/2023 , Expires: 10/02/2023 Start: 06-09-[address] WORKER BALAJI DISEASE VISIT ANNUAL PCP TEAM CHRONIC DISEASE VISIT [facility] Start: 06-05-2023 Covid-19 Vaccine () Covid-19 Vaccine () [facility] Start: 04-16-2023 Behavioral Health Screening Behavioral Health Screening [facility] Start: 01-08-2023 End: 03-10-2023 Prostate specific Ag [Mass/volume] in Serum or Plasma [facility] Work Phone: Comment on above: Expected: 01/08/2023 , Expires: 03/10/2023 Start: 12-31-2022 Hepatitis B screening URINE AL BUMIN:CREATININE RATIO [facility] Start: 12-30-[address] WORKER BALAJI DISEASE VISIT ANNUAL PCP TEAM CHRONIC DISEASE VISIT [facility] Start: 12-15-2022 Influenza vaccination Influenza Vacc ine (#1) [facility] Start: 12-02-[address] WORKER BALAJI DISEASE VISIT ANNUAL PCP TEAM CHRONIC DISEASE VISIT [facility] Start: 11-23-[address] WORKER BALAJI DISEASE VISIT ANNUAL PCP TEAM CHRONIC DISEASE VISIT [facility] Start: 11-11-[address] WORKER BALAJI DISEASE VISIT ANNUAL PCP TEAM CHRONIC DISEASE VISIT [facility] Start: 10-29-2022 Hemoglobin A1c measurement HbA1C [facility] Start: 10-29-2022 Hemoglobin A1c/Hemoglobin.total in Blood HBA1C [facility] Start: 10-18-[address] WORKER BALAJI DISEASE VISIT ANNUAL PCP TEAM CHRONIC DISEASE VISIT [facility] Start: 09-01-2022 Adult depression screening assessment DEPRESSION SCREENING [facility] Start: 09-01-[address] WORKER BALAJI DISEASE VISIT ANNUAL PCP TEAM CHRONIC DISEASE VISIT [facility] Start: 07-21-2022 Covid-19 Vaccine (5 - Moderna series) Covid-19 Vaccine (5 - Moderna series) [facility] Start: 06-08-2022 FECAL OCCULT BLOOD FECAL OCCULT BLOO D [facility] Start: 06-08-2022 Screening for malign ant neoplasm of colon Fecal Occult Blood [facility] Start: 05-31-[address] WORKER BALAJI DISEASE VISIT ANNUAL PCP TEAM CHRONIC DISEASE VISIT [facility] Start: 04-16-2022 ADVANCE DIRECTIVE DISCUSSION ADVANCE DIRECTIVE DISCUSSION [facility] Start: 04-16-2022 DEPRESSION ASSESSMENT DEPRESSION ASS ESSMENT [facility] Start: 02-03-2022 End: 04-05-2022 Prostate specific Ag [Mass/volume] in Serum or Plasma PSA/PROSTSPECAG DIAG Lab Routine Prostate cancer (HCC) Expected: 02/03/2022, Expires: 04/05/2022 [facility] Work Phone: Comment on above: Expected: 02/03/2022 , Expires: 04/05/2022 Start: 12-15-2021 Influenza vaccination INFLUENZA (#1) [facility] Start: 12-15-2021 Medicare Annual Well ness Visit Medicare Annual Wellness Visit [facility] Start: 12-04-2021 Hemoglobin A1c/Hemoglobin.total in Blood HBA1C [facility] Start: 12-02-2021 End: 02-01-2022 ALBUMIN/CREAT RATIO RND UR ALBUMIN/CREAT RATIO RND UR Lab Routine Type 2 diabetes mellitus without complication, without long-term current use of insulin (HCC) Expected: 12/02/2021 (Approximate), Expires: 02/01/2022 [facility] Work Phone: Comment on above: Expected: 12/02/2021 (Approximate), Expires: 02/01/2022 Start: 12-02-2021 End: 02-01-2022 CBC panel - Blood by Automated count CBC Lab Routine Iron deficiency anemia, unspecified iron deficiency anemia type Expected: 12/02/2021, Expires: 02/01/2022 [facility] Work Phone: Comment on above: Expected: 12/02/2021 , Expires: 02/01/2022 Start: 12-02-2021 End: 02-01-2022 Comprehensive metabolic 2000 panel - Serum or Plasma COMP METABOLIC PANEL Lab Routine S/P CABG x 4 NSTEMI (non-ST elevated myocardial infarction) (HCC) Type 2 diabetes mellitus without complication, without long-term current use of insulin (HCC) Expected: 12/02/2021 (Approximate), Expires: 02/01/2022 [facility] Work Phone: Comment on above: Expected: 12/02/2021 (Approximate), Expires: 02/01/2022 Start: 12-02-2021 End: 02-01-2022 Hemoglobin A1c/Hemoglobin.total in Blood HGB A1C Lab Routine Type 2 diabetes mellitus without complication, without long-term current use of insulin (HCC) Expected: 12/02/2021 (Approximate), Expires: 02/01/2022 [facility] Work Phone: Comment on above: Expected: 12/02/2021 (Approximate), Expires: 02/01/2022 Start: 12-02-2021 End: 02-01-2022 LIPID PANEL BASIC LIPID PANEL BASIC Lab Routine S/P CABG x 4 NSTEMI (non-ST elevated myocardial infarction) (HCC) Expected: 12/02/2021 (Approximate), Expires: 02/01/2022 [facility] Work Phone: Comment on above: Expected: 12/02/2021 (Approximate), Expires: 02/01/2022 Start: 09-01-2021 End: 11-01-2021 CBC W Auto Differential panel - Blood [facility] Work Phone: Comment on above: Expected: 09/01/2021 (Approximate), Expires: 11/01/2021 Start: 08-01-2021 Patient referral to dietitian [facility] Work Phone: Start: 07-28-2021 End: 09-27-2021 Prostate specific Ag [Mass/volume] in Serum or Plasma PSA/PROSTSPECAG DIAG Lab Routine Prostate cancer (HCC) Expected: 07/28/2021, Expires: 09/27/2021 [facility] Work Phone: Comment on above: Expected: 07/28/2021 , Expires: 09/27/2021 Start: 07-23-2021 Hepatitis B surface antibody level LDL CHOLESTEROL [facility] Start: 07-22-2021 COVID-19 VACCINE (4 - Booster for Moderna series) COVID-19 VACCINE (4 - Booster for Moderna series) [facility] Start: 07-15-2021 Patient referral [facility] Work Phone: Start: 06-19-2021 Adult depression screening assessment DEPRESSION SCREENING [facility] Start: 05-18-2021 COVID-19 VACCINE (4 - Booster for Moderna series) COVID-19 VACCINE (4 - Booster for Moderna series) [facility] Start: 04-16-2021 ADVANCE DIRECTIVE DISCUSSION ADVANCE DIRECTIVE DISCUSSION [facility] Start: 04-16-2021 DEPRESSION ASSESSMENT DEPRESSION ASS ESSMENT [facility] Start: 05-24-2018 PNEUMOCOCCAL: 65+ (2 - PPSV23 if available, else PCV20) PNEUMOCOCCAL: 65+ (2 - PPSV23 if available, else PCV20) [facility] Start: 05-24-2018 PNEUMOCOCCAL: 65+ (2 - PPSV23 or PCV20) PNEUMOCOCCAL: 65+ (2 - PPSV23 or PCV20) [facility] Start: 07-19-2017 PNEUMOCOCCAL: 65+ (2 - PPSV23 if available, else PCV20) PNEUMOCOCCAL: 65+ (2 - PPSV23 if available, else PCV20) [facility] Start: 10-23-2015 PNEUMOVAX AGE 65 AND OVER WITH 5YR LOOKBACK (#1) PNEUMOVAX AGE 65 AND OVER WITH 5YR LOOKBACK (#1) [facility] Start: 2010 Hepatitis B Vaccine (1 of 3 - Risk 3-dose series) Hepatitis B Vaccine (1 of 3 - Risk 3-dose series) [facility] Start: 2000 SHINGRIX VACCINE (1 of 2) SHINGRIX VACCINE (1 of 2) [facility] Start: 10-23-1995 COLOGUARD (FIT-DNA) COLOGUARD (FIT-D NA) [facility] Start: 10-23-[address] COLONOGRAPHY [facility] Start: 10-23-1995 Screening for malign ant neoplasm of colon [facility] Start: 10-23-1995 SIGMOIDOSCOPY SIGMOIDOSCOPY [facility] Start: 1969 SHINGRIX VACCINE (1 of 2) SHINGRIX VACCINE (1 of 2) [facility] Start: 1968 BP Controlled (<130/80) BP Controlle d (<130/80) [facility] Start: 1960 3 comp foot exam completed DIABETIC FOOT EXAM [facility] Start: 1960 Hepatitis B screening URINE AL BUMIN:CREATININE RATIO [facility] Start: 1960 Hepatitis C antibody , confirmatory test DILATED RETINAL EXAM [facility] Start: 1950 ABDOMINAL AORTIC ANEURYSM SCREENING ABDOMINAL AORTIC ANEURYSM SCREENING [facility] Start: 1950 Abdominal aortic aneurysm screening Abdominal Aortic Aneurysm Screening [facility] CARDIAC REHAB II OUT PT ([place]) CARDIAC REHAB II OUTPT ([place]) BIC Routine S/P CABG x 4 Ordered: 07/14/2021 [facility] Work Phone: Comment on above: Ordered: 07/14/2021 End: 05-02-2025 CT Abdomen and Pelvis WO contrast CT ABD/PEL WO IVCON Radiology Routine Abdominal wall hernia 1 Occurrences starting 04/02/2024 until 05/02/2025 [facility] Work Phone: Comment on above: 1 Occurrences starti ng 04/02/2024 until 05/02/2025 CT Abdomen and Pelvi s WO contrast CT ABD/PEL WO IVCON Radiology Routine Abdominal wall hernia 04/07/2024 3:53 PM EST [facility] Work Phone: End: 12-15-2021 Ct thorax w/o contrast material [facility] Work Phone: Comment on above: 1 Occurrences starti ng 12/15/2021 until 12/15/2021 End: 01-25-2023 Ct thorax w/o contrast material CT CHEST WO IVCON Radiology Routine Lung nodule 1 Occurrences starting 12/26/2021 until 01/25/2023 [facility] Work Phone: Comment on above: 1 Occurrences starti ng 12/26/2021 until 01/25/2023 End: 05-20-2025 ECG COMPLETE ECG COMPLETE ECG Routine Pre-op evaluation 1 Occurrences starting 05/20/2024 until 05/20/2025 [facility] Comment on above: 1 Occurrences starti ng 05/20/2024 until 05/20/2025 End: 10-14-2022 Mri pelvis w/o & w/contrast material MRI PROSTATE WO/W IVCON Radiology Routine Prostate cancer (HCC) 1 Occurrences starting 09/14/2021 until 10/14/2022 [facility] Work Phone: Comment on above: 1 Occurrences starti ng 09/14/2021 until 10/14/2022 Patient referral [facility] Work Phone: End: 10-03-2025 Screening colonoscopy COLONOSCOPY SCREENING Endoscopy Routine Screening for colon cancer History of colonic polyps 1 Occurrences starting 10/03/2024 until 10/03/2025 [facility] Work Phone: Comment on above: 1 Occurrences starti ng 10/03/2024 until 10/03/2025 Troponin T.cardiac [Mass/volume] in Serum or Plasma by High sensitivity method [facility] Troponin T.cardiac [Mass/volume] in Serum or Plasma by High sensitivity method [facility] US Abdominal Aorta f or screening US SCREENING FOR AAA Radiology Routine 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) History of cigarette smoking 09/12/2023 8:38 AM EDT [facility] Work Phone: Heart limited [facility] Work Phone: [facility] Immunizations Immunization Date Immunization Notes Care Provider [facility] 03-24-2024 COVID-19 vaccine, ag e 12+ yr (PFIZER-BIONTECH COMIRNATY) Dixon Valadez MD Work Phone: [facility] 03-24-2024 influenza, high dose seasonal, preservative-free Dixon Valadez MD Work Phone: [facility] 03-24-2024 influenza virus vaccine, unspecified formulation Vickie Luna MD Work Phone: [facility] 02-02-2023 COVID-19 vaccine, ag e 12+ yr, season (MODERNA) Dixon Valadez MD Work Phone: [facility] 02-02-2023 influenza (aIIV4) vaccine, age 65+ yr, quadrivalent, PF (FLUAD QUAD) Dixon Valadez MD Work Phone: [facility] 02-02-2023 respiratory syncytia l virus (RSV) vaccine, adjuvanted (AREXVY) Dixon Valadez MD Work Phone: [facility] 02-02-2023 influenza virus vaccine, unspecified formulation Maxim Gumaro REDDYSUPPORT SERVICE TECH Work Phone: [facility] 11-18-2022 pneumococcal (PCV20) vaccine, 20 valent (PREVNAR 20) Rajat العراقي Jr., MD Work Phone: [facility] 03-22-2022 COVID-19 booster vaccine, age 12+ yr, bivalent (MODERNA) Dixon Valadez MD Work Phone: [facility] 03-22-2022 influenza, high dose seasonal, preservative-free Dixon Valadez MD Work Phone: [facility] 03-22-2022 influenza virus vaccine, unspecified formulation Rajat العراقي Jr., MD Work Phone: [facility] 03-05-[address] Dixon Valadez Work Phone: [facility] 03-05-2021 influenza, seasonal, injectable, preservative free Vidhi Eastman RN [facility] 02-22-2021 influenza, high-dose , quadrivalent vaccine (FLUZONE HIGH DOSE QUADRIVALENT) Vidhi Eastman RN [facility] 07-07-2020 COVID-19 vaccine, fu ll dose (MODERNA) Vidhi Eastman RN [facility] 06-09-2020 COVID-19 vaccine, fu ll dose (MODERNA) Vidhi Eastman RN [facility] 01-11-2020 influenza, high dose seasonal, preservative-free Vidhi Eastman RN [facility] 05-24-2017 influenza, high dose seasonal, preservative-free Vidhi Eastman RN [facility] 05-24-2017 pneumococcal conjuga te vaccine, 13 valent Vidhi Eastman RN [facility] 05-24-2017 tetanus toxoid, reduced diphtheria toxoid, and acellular pertussis vaccine, adsorbed Vihdi Eastman RN [facility] Payers Date Payer Category Payer Self-pay [id number] 2022 Unknown [id number] 2019 Private Health Insurance AETNA A ETNA MEDICARE SUPPLEMENT [id number] 2019-Present [phone] [address] [address] [place] [address] Indemnity [id number] 2019 Private Health Insurance [id number] 2018 Unknown [id number] 2018 Unknown [id number] 2015 Medicare MEDICARE MEDICAR E A [id number] 2015-Present [phone] [address] [place] [address] Medicare [id number] 2015 Medicare [id number] 2015 Medicare [id number] Private Health [place] [facility] [id number] Unknown [id number] Unknown [id number] Unknown [id number] Unknown [id number] Unknown [id number] Unknown [id number] Social History Date Type Detail Facility Start: 07-31-2016 End: 12-29-2024 Tobacco smoking status NHIS Ex-smoker [facility] Work Phone: End: 07-29-2010 History of tobacco use Current smoker [facility] Work Phone: End: 07-29-2010 History of tobacco use Cigarette Smoker [facility] Work Phone: Start: 07-31-2016 End: 03-24-2024 Tobacco use and exposure Smokeless tobacco non-user [facility] Work Phone: Start: 06-27-2021 End: 11-20-2024 Alcohol intake Current drinker of alcohol (finding) [facility] Start: 06-20-2020 End: 06-02-2022 History SDOH Alcohol Frequency 2 [facility] Start: 06-20-2020 End: 06-02-2022 History SDOH Alcohol Std Drinks 1 [facility] Start: 12-12-2019 History SDOH Alcohol Comment rarely [facility] Start: 06-20-2020 End: 06-02-2022 History SDOH Social Connections Phone 5 [facility] Start: 06-20-2020 End: 06-02-2022 History SDOH Social Connections Get Together 3 [facility] Start: 06-20-2020 History SDOH Physical Activity DPW 7 [facility] Start: 06-19-2020 Education 21 [facility] Start: 10-30-2018 End: 11-23-2021 Tobacco Comment years [facility] Start: 1950 Sex Assigned At Male [facility] Start: 06-24-2021 End: 01-04-2022 Exposure to SARS-CoV-2 (event) Not sure [facility] Start: 08-01-2021 End: 05-01-2022 Tobacco smoking status SCIS Unknown if ever smoked [facility] Start: 12-16-2019 Non-smoker [facility] Start: 06-02-2022 End: 11-18-2022 History of Social function [facility] Start: 06-02-2022 End: 11-18-2022 Social connection and isolation panel [facility] Do you belong to any clubs or organizations such as latter-day groups, unions, fraternal or athletic groups, or school groups? No [facility] Are you now , , , , never or living with a partner? [facility] How often to you hav e a drink containing alcohol? Monthly or less [facility] How many standard dr inks containing alcohol do you have on a typical day? 1 or 2 [facility] How often do you hav e 6 or more drinks on 1 occasion? Never [facility] Start: 03-17-2012 How hard is it for you to pay for the very basics like food, housing, medical care, and heating Not hard at all [facility] Do you feel stress - tense, restless, nervous, or anxious, or unable to sleep at night because your mind is troubled all the time - these days [OSQ] Not at all [facility] (I/We) worried wheth er (my/our) food would run out before (I/we) got money to buy more. Never true [facility] Start: 12-12-2019 Gender identity Identifies as male gender (finding) [facility] Start: 12-12-2019 Sexual orientation Heterosexual (finding) [facility] How often to you hav e a drink containing alcohol? 2-4 times a month [facility] Start: 06-12-2023 Tobacco smoking status NHIS Never smoked tobacco (finding) [facility] Medical Equipment Procedure Code Equipment Code Equipment Origin al Text Equipment Identifier Dates [id number], [id number], [id number], [id number], [id number], [id number], [id number], [id number], [id number] Start: 06-15-2021 End: 12-08-2024 Comment on above: Test blood sugar(s) 3 times daily. Dx: Type 2 DM - Controlled E11.9 Insulin: Yes Use once daily with Lantus Pen Test blood sugar(s) 3 times daily. Dx: Type 2 DM - Controlled E11.9 Insulin: No Test blood sugar(s) 3 times daily. Dx: Type 2 DM - Controlled E11.9. Insulin: Yes. Mesh Parietene D s [id number] X1 - [id number] Start: 06-02-2024 Blood Sugar Diagnostic strip Start: 12-29-2024 Lancets (Lancets 28 Gauge) 28 gauge misc Start: 12-29-2024 Functional Status Date Assessment Result Facility 06-13-2021 Are you deaf, or do you have serious difficulty hearing No 06/13/2021 3:37 PM Kayla Schroeder APRN.SUPPORT SERVICE TECH No [facility] Work Phone: 06-13-2021 Are you blind, or do you have serious difficulty seeing, even when wearing glasses No 06/13/2021 3:37 PM Kayla Schroeder, THERAPY ASSISTANT.SUPPORT SERVICE TECH No [facility] 06-13-2021 Do you have serious difficulty walking or climbing stairs Yes 06/13/2021 3:37 PM Kayla Schroeder, THERAPY ASSISTANT.SUPPORT SERVICE TECH Yes [facility] 06-13-2021 Do you have difficul ty dressing or bathing No 06/13/2021 3:37 PM Kayla Schroeder, THERAPY ASSISTANT.SUPPORT SERVICE TECH No [facility] 06-13-2021 Because of a physica l, mental, or emotional condition, do you have difficulty doing errands alone such as visiting a physician's office or shopping Yes 06/13/2021 3:37 PM Kayla Schroeder THERAPY ASSISTANT.SUPPORT SERVICE TECH Yes [facility] 06-04-2021 Functional status Ambulates;Up ad zenon [facility] Work Phone: Mental Status Date Assessment Result Facility 12-29-2024 Cognitive function Level Of Cons ciousness Awake;Alert;Appropriate;Fol lows Commands [facility] Work Phone: 06-13-2021 Because of a physica l, mental, or emotional condition, do you have serious difficulty concentrating, remembering, or making decisions No 06/13/2021 3:37 PM Kayla Schroeder, ELAINE.SUPPORT SERVICE TECH No [facility] 06-04-2021 Cognitive function Voice/Name [facility] Work Phone: Clinical Notes 08-22-2017 to 12-29-2024 Note Date & Type Note Facility 12-29-2024 History and physi effie note [facility] 12-29-2024 Radiology Diagnostic study note [facility] Imaging Services [address] [place], [place] [address] Brain/Head without Contrast MR#: [id number] Acct: [id number] Name: REGINALD VAUGHN Rep #: [id number] : 1950 M 74 From: Juan Braga MD PCP: Dr. Dixon Valadez MD Status: RE G ER Study:Brain/Head without Contrast Date of Exa m: 12/29/24 Exam# [id number] Ordering Dr: Alberto Rodriguez MD PROCEDURE: BRAIN/HEAD WITHOUT CONTRAST 12/29/2024 REASON FOR EXAM: FALL, SYNCOPE TECHNIQUE: Procedure Code: CTBR Modality: CT Procedure: BRAIN/HEAD WITHOUT CONTRAST Coronal and Sagittal reconstruction series were provided. One or more dose reduction techniques were used (e.g., Automated exposure control, adjustment of the mA and/or kV according to patient size, use of iterative reconstruction technique. RADIATION DOSE SUMMARY: CTDlvol: 44.99 mGy DLP: 729 mGycm COMPARISON: None FINDINGS: Brain: Low density in the periventricular white matter suggests mild chronic small vessel ischemic changes. CSF Spaces: Mild generalized cerebral atrophy Sinuses/Mastoids: Clear at visualized levels Bones: Unremarkable CT/Brain/Head without Contrast IMPRESSION: CHRONIC CHANGES. NO ACUTE FINDINGS. Reading Location: [place] [address] CC: Dr. Zoya Rodriguez MD; Dr. Dixon Valadez MD ~ 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: Signed [facility] 12-29-2024 Radiology Diagnostic study note [facility] Imaging Services [address] [place], [place] [address] Spine Cervical without Contras MR#: [id number] Acct: [id number] Name: REGINALD VAUGHN Rep #: [id number] : 1950 M 74 From: Dale Gasca MD PCP: Dr. Dixon Valadez MD Status: RE G ER Study:Spine Cervical without Contras Date of Exam: 12/29/24 Exam# [id number] Ordering Dr: Alberto Rodriguez MD PROCEDURE: SPINE CERVICAL WITHOUT CONTRAS 12/29/2024 REASON FOR EXAM: FALL, SYNCOPE TECHNIQUE: Procedure Code: CTSPC Modality: CT Procedure: SPINE CERVICAL WITHOUT CONTRAS Coronal and Sagittal reconstruction series were provided. One or more dose reduction techniques were used (e.g., Automated exposure control, adjustment of the mA and/or kV according to patient size, use of iterative reconstruction technique. RADIATION DOSE SUMMARY: CTDlvol: 25.72 mGy DLP: 1460.31 mGycm COMPARISON: None. FINDINGS: Alignment: Normal alignment. Vertebrae: No acute bony abnormalities. Soft Tissues: No soft tissue abnormalities. Disc levels: Multilevel degenerate changes at C4-C5, C5-C6 of disc space narrowing, uncovertebral hypertrophy, severe bilateral foramina stenosis and moderate canal stenosis. Right C2-C3 and C3-C4 facet joint arthropathy with corresponding moderate canal stenoses. CT/Spine Cervical without Contras IMPRESSION: No acute injury to the cervical spine. Reading Location: [facility] CC: Dr. Zoya Rodriguez MD; Dr. Dixon Valadez MD ~ 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: Signed [facility] 12-29-2024 Radiology Diagnostic study note [facility] Imaging Services [address] [place] [address] Chest PA and Lateral MR#: [id number] Acct: [id number] Name: REGINALD VAUGHNHOLD Rep #: [id number] : 1950 M 74 From: Elida Griffith MD PCP: Dr. Dixon Valadez MD Status: RE G ER Study:Chest PA and Lateral Date of Exam: 12/29/24 Exam# [id number] Ordering Dr: Alberto Rodriguez MD PROCEDURE: CHEST PA AND LATERAL 12/29/2024 REASON FOR EXAM: CHEST PAIN TECHNIQUE: Procedure Code: RADCXR Modality: DX Procedure: CHEST PA AND LATERAL COMPARISON: May 31, 2021 FINDINGS: Hardware: Prior median sternotomy. EKG leads. Heart: Enlarged. Mediastinum: Atherosclerotic aorta. Lungs: Clear. No pneumothorax or pleural effusion. Bones: Degenerative changes are identified within the thoracic spine. RAD/Chest PA and Lateral IMPRESSION: Mild cardiac enlargement. Reading Location: [id number] CC: Dr. Zoya Rodriguez MD; Dr. Dixon Valadez MD ~ 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: Signed [facility] 12-26-2024 Discharge summary [facility] 12-26-2024 Discharge summary Note Date/Time December 26, 2024 1:55pm [facility] Physical Therapy [facility] [facility] [place] [address] / REHABILITATION SERVICES DISCHARGE SUMMARY MR#: [id number] Acct: [id number] Name: REGINALD VAUGHN Rep #: [id number] : 1950 74 From: Allan Willson DPT, OCS, CSCS Referring Dr.: Dr. Jose Plascencia MD Status: REG RCR Insurance: MEDICARE PART A B [facility] Discharge Summary D/C summary: It has been my pleasure to treat REGINALD VAUGHN referred by Dr. Jose Plascencia MD, with the diagnosis of RCT, prehab for 01/19 reverse TSA for a total of 14 visit(s). Discharge Date: 12/26/24 Please see the following information for a summary of their discharge status. Subjective Subjective: Doing exercises at home. Overhead ex with function was painful in forearm at first but got better. Pain is minimal. Times it hurts in am if sleeps on it wrong. 6/10 at times if he lifts somethings. Sleep is OK. HEP : ready for TSA, will continue. Pain L shoulder: Pain Intensity (Out of 10): 0 Overall Improvement % Improvement: 50 Objective Objective/Function: 150 AROM fleexion L arm, Nil er, IR comfortable to L4. strength er Nil, IR 4, bi and tri 4+, flexion 4- L and compensates with scap elevation with flexion adn abduction. Good scap mobility. Goals Goal 1:: I appropriate HEP for ROM and strength uppr half leading to surgery Goal Progress: Goal Met Goal 2:: AROM 5 er L and 155 elevation without pain Goal Progress: flexion yes, er no Goal 3:: pt feel prepared for rev TSA in January. Goal Progress: Goal Met Plan Plan: d/c, pt to continue via HEP until surgery. D/C Information Discharge Comments: F/u post surgically when ordered. d/c sentence: If there are questions or concerns regarding this patient's physical therapy, please feel free to call me at [phone]. Thank you for the referral of thispatient. Sincerely, Allan Willson, RUTHANN, OCS, CSCS Balance/Gait/Functional tests Balance/Special Test Scores Quick DASH Score: 27.2725 Improvement % Improvement: 50 <Electronically signed by Allan Willson DPT, OCS, CSCS> 12/26/24 0946 CC: Dr. Jose Plascencia MD; Dr. Dixon Valadez MD ~ EBG Signed [facility] Work Phone: 1(375) 123-328708-25-2025 Telephone encounter Note* Telephone Encounter - Maxim Naik APRN.CNP - 12/08/2024 9:36 AM EDT The following approved medication requests have been transmitted electronically. Requested Prescriptions Pending Prescriptions Disp Refills Lancets 100 each 11 Sig: Test blood sugar(s) 3 times daily. Dx: Type 2 DM - Controlled E11.9 Insulin: Yes Maxim Naik APRN.CNP [facility]08-25-2025 Miscellaneous Notes* Telephone Encounter - Maxim Naik APRN.CNP - 12/08/2024 9:36 AM EDT The following approved medication requests have been transmitted electronically. Requested Prescriptions Pending Prescriptions Disp Refills Lancets 100 each 11 Sig: Test blood sugar(s) 3 times daily. Dx: Type 2 DM - Controlled E11.9 Insulin: Yes Maxim Naik APRN.CNP [facility] Telephone encounter Note * Telephone Encounter - Sierra Reesndez MA - 12/08/2024 9:33 AM EDT Freestyle lite test strips were refilled for a year supply on 08/11/24 to [facility]. Pt notified via [employer] to check with pharmacy. Sierra Resendez MA [facility]08-25-2025 Miscellaneous Notes* Telephone Encounter - Sierra Resendez MA - 12/08/2024 9:33 AM EDT Freestyle lite test strips were refilled for a year supply on 08/11/24 to [facility]. Pt notified via Camp[employer] to check with pharmacy. Sierra Resendez MA documented in [facility] encounterMi[facility]-07-2025 NoteHNO ID: [id number] Author: DIXON VALADEZ MD Service: ? Author Type: Physician Type: Progress Notes Filed: 11/20/2024 09:22 Note Text: Chief Complaint Patient presents with: F/U 6 months HPI Reginald Vaughn is a 74 year old male who presents here today for 6 month follow up. Pt going to be having left shoulder arthroplasty done in Jan with [facility]. Has been doing PT at [facility] Mon/Wed/Fri for his shoulder. Scheduled for surgery on 01/19/25. Has pre-op form to be completed. No bowel, Gi, or urinary issues. Follows with [facility] Surgery for colonic polyps and colon cancer screenings. Was not able to get the colonoscopy done as he took the mounjaro injection, was not aware or couldn't recall if he was to hold that. This has been rescheduled. Follows with Dr. العراقي, Urologist for hx of prostate cancer. Following with [facility]. Lipids: Cardiac hx of CAD, s/p CABG, and NSTEMI. Follows with Cardiology at [facility]. Also following for aortic stenosis, moderate on last echo. Tries to watch his diet and do some exercises. On current regimen of Plavix 75 mg once daily, Lipitor 40 mg once daily and ASA 81 mg daily. DM: Checks sugars once daily with FBS 100-114. Denies any low blood sugars or neuropathy symptoms. On current regimen of Mounjaro 15 mg once weekly and Metformin XR 500 mg 1 tab po bid. Follows with Dr. Evangelista for routine eye exams. Last A1c on 05/19/24 was normal at 4.7. HTN: Denies monitoring his BP at home or having symptoms of chest pain, sob, or dizziness. Follows with Cardiology at [facility]. On current regimen of Lisinopril 10 mg once daily and Lopressor 50 mg 1 tab po bid. Past medical history, appointments, medications, allergies reviewed. Previous Medical History PAST MEDICAL HISTORY Diagnosis Date Arthritis Basal cell carcinoma (BCC) of skin of lower extremity including hip 05/20/2024 Bladder stones BPH (benign prostatic hyperplasia) CAD (coronary artery disease) Cancer (HCC) skin ca Former smoker 05/20/2024 History of colon polyps 07/24/2013 History of prostate cancer 05/20/2024 HTN (hypertension) 05/20/2024 Mixed hyperlipidemia Morbid obesity (HCC) 05/20/2024 Prostate cancer (HCC) SCCA (squamous cell carcinoma) of skin 05/20/2024 Snoring 05/20/2024 Type 2 diabetes mellitus, without long-term current use of insulin (HCC) 06/20/2021 Previous Surgical History PAST SURGICAL HISTORY Procedure Laterality Date ARTHROSCOPY KNEE DIAGNOSTIC W/WO SYNOVIAL BX SPX Right 1989 Meniscal tear CABG (4) VEIN GRAFTS AND ARTERIAL GRAFT(S) 06/08/2021 COLONOSCOPY FLX DX W/COLLJ SPEC WHEN PFRMD 07/24/2013 Colonoscopy COLONOSCOPY FLX DX W/COLLJ SPEC WHEN PFRMD 09/15/2016 Colonoscopy COLSC FLX W/RMVL OF TUMOR POLYP LESION SNARE TQ 12/30/2019 PAST SURGICAL HISTORY OF Right 2015 repair biceps tendon ROTATOR CUFF REPAIR Left 04/18/2013 Family History FAMILY HISTORY Problem Relation Age of Onset Diabetes Mother Emphysema Father Asbestosis Diabetes Brother Asthma Brother Patient Allergies ALLERGIES Allergen Reactions Ozempic [Semaglutid* Diarrhea Trulicity [Dulaglut* GI Upset Diarrhea Keflex [Cephalexin] Other: See Comments Joint Pain Current Medications Current Outpatient Medications on File Prior to Visit Medication Sig blood sugar diagnostic (FREESTYLE LITE STRIPS) test strip Test blood sugar(s) 3 times daily. Dx: Type 2 DM - Controlled E11.9. Insulin: Yes. tirzepatide (MOUNJARO) 15 mg/0.5 mL pen injector Inject 15 mg subcutaneously one time a week. atorvastatin (LIPITOR) 40 mg tablet Take 1 tablet by mouth once daily. folic acid 1 mg tablet Take 1 tablet by mouth once daily. metFORMIN ER (GLUCOPHAGE XR) 500 mg 24 hr tablet Take 1 tablet by mouth two times a day with meals. metoprolol tartrate, short acting, (LOPRESSOR) 50 mg tablet Take 1 tablet by mouth every 12 hours. Lancets Test blood sugar(s) 3 times daily. Dx: Type 2 DM - Controlled E11.9 Insulin: Yes Lancing Device with Lancets Use with blood glucose test three times a day. Insulin Dep? Yes LISINOPRIL ORAL Take 10 mg by mouth. Blood-Glucose Meter (TRUE METRIX AIR GLUCOSE METER) Test blood sugar(s) 3 times daily. Dx: Type 2 DM - Controlled E11.9 Insulin: Yes Blood Pressure Monitor CHECK vital signs daily or as needed aspirin 81 mg chewable tablet Take 1 tablet by mouth once daily. Take one ASPIRIN daily for life. acetaminophen (TYLENOL) 500 mg tablet Take 2 tablets by mouth four times daily. No current facility-administered medications on file prior to visit. Social History Social History Tobacco Use Smoking status: Former Current packs/day: 0.00 Types: Cigarettes Quit date: 07/29/2010 Years since quittin.3 Smokeless tobacco: Never Tobacco comments: years Vaping Use Vaping status: Never Used Substance Use Topics Alcohol use: Yes Comment: rarely Drug use: No EXAM: BP 126/74 (more content not included)...[facility]06-20-2025 History of Present illness Narrative* Harriet Cope APRN.SUPPORT SERVICE TECH - 10/03/2024 3:00 PM EDT HISTORY AND PHYSICAL Reginald Vaughn : 1950 REFERRING PHYSICIAN: Dixon Valadez [address] [facility] [address] CHIEF COMPLAINT: Patient presents with: Consult: Last colonoscopy 2019 HPI: Reginald is a 73 year old male referred for endoscopy. Reginald notes due for screening colonoscopy- hx of polyps (2019). Reginald denies abdominal pain.. Reginald denies diarrhea. Reginald denies constipation. Reginald denies a change in bowel habits. Reginald denies melena. Reginald denies bright red blood per rectum. Reginald denies hemorrhoids. Reginald denies family history of colon issues. Reginald denies heartburn. Reginald denies dysphagia. Reginald denies a history of ulcers/ peptic ulcer disease. Reginald follows with [facility] for HTN, aortic valve stenosis, HLD, CABG x 4 (2021). Last OV was 06/2024. Last stress test 12/2023 with no ischemia. EF: 59%. He denies CP, SOB, dizziness, palpitations, syncope, edema, recent hospitalizations Reginald has undergone prior endoscopy. Last colonoscopy was 12/[address] Stephen at [facility]. Sedation: MAC Impression: -One 5 to 10mm polyp in the rectum, removed with a cold snare. Resected and retrieved. -Non-bleeding internal hemorrhoids MICROSCOPIC DIAGNOSIS Rectal polyp, biopsy: Fragments of tubular adenoma Current Outpatient Medications Medication Sig blood sugar diagnostic (FREESTYLE LITE STRIPS) test strip Test blood sugar(s) 3 times daily. Dx: Type 2 DM - Controlled E11.9. Insulin: Yes. tirzepatide (MOUNJARO) 15 mg/0.5 mL pen injector Inject 15 mg subcutaneously one time a week. atorvastatin (LIPITOR) 40 mg tablet Take 1 tablet by mouth once daily. folic acid 1 mg tablet Take 1 tablet by mouth once daily. metFORMIN ER (GLUCOPHAGE XR) 500 mg 24 hr tablet Take 1 tablet by mouth two times a day with meals. metoprolol tartrate, short acting, (LOPRESSOR) 50 mg tablet Take 1 tablet by mouth every 12 hours. Lancets Test blood sugar(s) 3 times daily. Dx: Type 2 DM - Controlled E11.9 Insulin: Yes Lancing Device with Lancets Use with blood glucose test three times a day. Insulin Dep? Yes LISINOPRIL ORAL Take 10 mg by mouth. Blood-Glucose Meter (TRUE METRIX AIR GLUCOSE METER) Test blood sugar(s) 3 times daily. Dx: Type 2 DM - Controlled E11.9 Insulin: Yes aspirin 81 mg chewable tablet Take 1 tablet by mouth once daily. Take one ASPIRIN daily for life. acetaminophen (TYLENOL) 500 mg tablet Take 2 tablets by mouth four times daily. peg 3350-Electrolytes (GOLYTELY) 236-22.74-6.74 -5.86 gram suspension Take 4,000 mL by mouth one time only for 1 dose. Refer to printed prep instructions from your provider. Blood Pressure Monitor CHECK vital signs daily or as needed No current facility-administered medications for this visit. ALLERGIES: Ozempic [Semaglutide], Trulicity [Dulaglutide], and Keflex [Cephalexin] PAST MEDICAL HISTORY Diagnosis Date Arthritis Basal cell carcinoma (BCC) of skin of lower extremity including hip 05/20/2024 Bladder stones BPH (benign prostatic hyperplasia) CAD (coronary artery disease) Cancer (HCC) skin ca Former smoker 05/20/2024 History of colon polyps 07/24/2013 History of prostate cancer 05/20/2024 HTN (hypertension) 05/20/2024 Mixed hyperlipidemia Morbid obesity (HCC) 05/20/2024 Prostate cancer (HCC) SCCA (squamous cell carcinoma) of skin 05/20/2024 Snoring 05/20/2024 Type 2 diabetes mellitus, without long-term current use of insulin (HCC) 06/20/2021 PAST SURGICAL HISTORY Procedure Laterality Date ARTHROSCOPY KNEE DIAGNOSTIC W/WO SYNOVIAL BX SPX Right 1989 Meniscal tear CABG (4) VEIN GRAFTS & ARTERIAL GRAFT(S) 06/08/2021 COLONOSCOPY FLX DX W/COLLJ SPEC WHEN PFRMD 07/24/2013 Colonoscopy COLONOSCOPY FLX DX W/COLLJ SPEC WHEN PFRMD 09/15/2016 Colonoscopy COLSC FLX W/RMVL OF TUMOR POLYP LESION SNARE TQ 12/30/2019 PAST SURGICAL HISTORY OF Right 2015 repair biceps tendon ROTATOR CUFF REPAIR Left 04/18/2013 FAMILY HISTORY Problem Relation Age of Onset Diabetes Mother Emphysema Father Asbestosis Diabetes Brother Asthma Brother Social History Tobacco Use Smoking status: Former Current packs/day: 0.00 Types: Cigarettes Quit date: 07/29/2010 Years since quittin.1 Smokeless tobacco: Never Tobacco comments: years Vaping Use Vaping status: Never Used Substance Use Topics Alcohol use: Yes Comment: rarely Drug use: No REVIEW OF SYMPTOMS: REVIEW OF SYSTEMS: General: The patient denies fatigue, denies weight loss, denies weight gain, denies feeling hot, and feelings of cold. Eyes: The patient denies glaucoma, denies eye injury/surgery, denies glasses or contacts. Ear/Nose/Throat: The patient denies allergies, denies hayfever, denies ear infections, and denies bloody noses. Cardiovascular: The patient denies chest pain, denies heart disease, denies high blood pressure, denies high cholesterol, and denies poor circulation. Respiratory: The patient denies tuberculosis, denies pneumonia, denies frequent cough, denies shortness of breath, and denies coughing up blood. Gastrointestinal: The patient denies difficulty swallowing, denies acid reflux, denies ulcers, denies jaundice/hepatitis, denies gallbladder problems, denies vomiting, denies black or tarry stools, denies hemorrhoids, denies bleeding from rectum, denies diverticulitis, denies constipation, denies diarrhea, denies loss of stool control, and denies hernias. Kidney/Bladder: The patient denies kidney stones, denies urine infections, and denies bloody urine. Skin: The patient denies a history of skin cancer, denies bleeding/changing moles, and denies a history of skin rash. Neurologic: The patient denies a history of epilepsy/convulsions, denies headaches, denies head/spinal injuries, and denies stroke/TIA. Psychiatric: The patient denies psychiatric medications, denies depression, and denies voices. Endocrine: The patient denies thyroid disorders, denies diabetes, and denies hormonal problems. Hematologic: The patient denies a history of bruising, denies bleeding, and denies anemia. Infections: The patient denies a history of measles and mumps, denies rheumatic fever, and denies sexually transmitted diseases. Musculoskeletal: The patient denies back pain/injury, denies back problems, denies sciatica, deniesknee/foot trouble, denies arthritis, or denies gout. PHYSICAL EXAMINATION: General: The patient is 73 year old, male well nourished, well hydrated in no acute distress. The patient is oriented to time, place, and person. VITALS: Blood pressure 156/88, pulse 72, resp. rate 14, weight 106.1 kg (234 lb), SpO2 99%. Body mass index is 34.06 kg/m . HEENT: Normal cephalic, ataumatic, pupils are equally round, sclera are anicteric, mucous membranesare moist, oropharynx is clear. Neck has no masses or asymmetry . Respiratory: Clear to auscultation. Cardiac: Regular rate and rhythm. Abdominal exam: Soft, nontender, with no palpable masses. No hepatosplenomegaly. No palpable hernias. Extremities: no clubbing or cyanosis LABORATORY VALUES: As Noted RADIOLOGIC STUDIES: As Noted Assessment IMPRESSION: screen for colon cancer, history of colon polyps PLAN: I have reviewed my findings with the surgeon. Will plan for lower endoscopy. We discussed therisks and benefits of the planned endoscopy in terms understandable to the patient. I have informedthe patient that complications can occur including failure to complete the endoscopy and perforation. Reginald had the opportunity to ask questions concerning the planned endoscopy. Reginald freely consents to surgery. I plan to use Golytely bowel preparation Patient instructed to contact PCP or ordering provider for instructions regarding diabetic medication, which may require adjustment during bowel preparation and/or day of procedure. Instructed to hold Mounjaro for 7 days prior to endoscopy. I have explained to the patient the difference between IV conscious sedation and MAC anesthesia - and I have offered either, according to the patient's wishes. I have explained that with IV conscioussedation there is no anesthesia provider available and therefore there is a limitation of the amount of IV medications that can be given and that the patient may wake up in the middle of the procedure and/or experience pain/discomfort during the procedure. Further discussion was done and the patient was given the opportunity to ask questions and all questions were answered. Reginald chooses IV conscious sedation. Reginald was counseled that if there are changes in his/her medical condition, to let the office knowif surgery should proceed. If there are changes in patient's medical condition from time of this encounter to the day of the procedure that preclude anesthesia, patient may have procedure cancelled for patient's safety. Diagnoses: (Z86.0100) History of colonic polyps (primary encounter diagnosis) (Z12.11) Screening for colon cancer Consultation requested by Dr. Valadez for an opinion regarding colon cancer screening. My final recommendations will be communicated back to the requesting physician by way of shared Medical record or letter to requesting physician via US mail. Portions of this documentation were copied and pasted from previous office visit notes in order to provide a cohesive continuity of the history. The note has been reviewed and edited and updated as necessary. Harriet Cope APRN.SUPPORT SERVICE TECH [facility] NoteHNO ID: [id number] Author: HARRIET COPE APRN.SUPPORT SERVICE TECH Service: ? Author Type: Nurse Practitioner Type: Progress Notes Filed: 10/03/2024 15:45 Note Text: HISTORY AND PHYSICAL Reginald Vaughn : 1950 REFERRING PHYSICIAN: Dixon Valadez [address] [facility] [id number] CHIEF COMPLAINT: Patient presents with: Consult: Last colonoscopy 2019 HPI: Reginald is a 73 year old male referred for endoscopy. Reginald notes due for screening colonoscopy- hx of polyps (2019). Reginald denies abdominal pain.. Reginald denies diarrhea. Reginald denies constipation. Reginald denies a change in bowel habits. Reginald denies melena. Reginald denies bright red blood per rectum. Reginald denies hemorrhoids. Reginald denies family history of colon issues. Reginald denies heartburn. Reginald denies dysphagia. Reginald denies a history of ulcers/ peptic ulcer disease. Reginald follows with [facility] for HTN, aortic valve stenosis, HLD, CABG x 4 (2021). Last OV was 06/2024. Last stress test 12/2023 with no ischemia. EF: 59%. He denies CP, SOB, dizziness, palpitations, syncope, edema, recent hospitalizations Reginald has undergone prior endoscopy. Last colonoscopy was 12/[address] Stephen at [facility]. Sedation: MAC Impression: -One 5 to 10mm polyp in the rectum, removed with a cold snare. Resected and retrieved. -Non-bleeding internal hemorrhoids MICROSCOPIC DIAGNOSIS Rectal polyp, biopsy: Fragments of tubular adenoma Current Outpatient Medications Medication Sig blood sugar diagnostic (FREESTYLE LITE STRIPS) test strip Test blood sugar(s) 3 times daily. Dx: Type 2 DM - Controlled E11.9. Insulin: Yes. tirzepatide (MOUNJARO) 15 mg/0.5 mL pen injector Inject 15 mg subcutaneously one time a week. atorvastatin (LIPITOR) 40 mg tablet Take 1 tablet by mouth once daily. folic acid 1 mg tablet Take 1 tablet by mouth once daily. metFORMIN ER (GLUCOPHAGE XR) 500 mg 24 hr tablet Take 1 tablet by mouth two times a day with meals. metoprolol tartrate, short acting, (LOPRESSOR) 50 mg tablet Take 1 tablet by mouth every 12 hours. Lancets Test blood sugar(s) 3 times daily. Dx: Type 2 DM - Controlled E11.9 Insulin: Yes Lancing Device with Lancets Use with blood glucose test three times a day. Insulin Dep? Yes LISINOPRIL ORAL Take 10 mg by mouth. Blood-Glucose Meter (TRUE METRIX AIR GLUCOSE METER) Test blood sugar(s) 3 times daily. Dx: Type 2 DM - Controlled E11.9 Insulin: Yes aspirin 81 mg chewable tablet Take 1 tablet by mouth once daily. Take one ASPIRIN daily for life. acetaminophen (TYLENOL) 500 mg tablet Take 2 tablets by mouth four times daily. peg 3350-Electrolytes (GOLYTELY) 236-22.74-6.74 -5.86 gram suspension Take 4,000 mL by mouth one time only for 1 dose. Refer to printed prep instructions from your provider. Blood Pressure Monitor CHECK vital signs daily or as needed No current facility-administered medications for this visit. ALLERGIES: Ozempic [Semaglutide], Trulicity [Dulaglutide], and Keflex [Cephalexin] PAST MEDICAL HISTORY Diagnosis Date Arthritis Basal cell carcinoma (BCC) of skin of lower extremity including hip 05/20/2024 Bladder stones BPH (benign prostatic hyperplasia) CAD (coronary artery disease) Cancer (HCC) skin ca Former smoker 05/20/2024 History of colon polyps 07/24/2013 History of prostate cancer 05/20/2024 HTN (hypertension) 05/20/2024 Mixed hyperlipidemia Morbid obesity (HCC) 05/20/2024 Prostate cancer (HCC) SCCA (squamous cell carcinoma) of skin 05/20/2024 Snoring 05/20/2024 Type 2 diabetes mellitus, without long-term current use of insulin (HCC) 06/20/2021 PAST SURGICAL HISTORY Procedure Laterality Date ARTHROSCOPY KNEE DIAGNOSTIC W/WO SYNOVIAL BX SPX Right 1989 Meniscal tear CABG (4) VEIN GRAFTS AND ARTERIAL GRAFT(S) 06/08/2021 COLONOSCOPY FLX DX W/COLLJ SPEC WHEN PFRMD 07/24/2013 Colonoscopy COLONOSCOPY FLX DX W/COLLJ SPEC WHEN PFRMD 09/15/2016 Colonoscopy COLSC FLX W/RMVL OF TUMOR POLYP LESION SNARE TQ 12/30/2019 PAST SURGICAL HISTORY OF Right 2015 repair biceps tendon ROTATOR CUFF REPAIR Left 04/18/2013 FAMILY HISTORY Problem Relation Age of Onset Diabetes Mother Emphysema Father Asbestosis Diabetes Brother Asthma Brother Social History Tobacco Use Smoking status: Former Current packs/day: 0.00 Types: Cigarettes Quit date: 07/29/2010 Years since quittin.1 Smokeless tobacco: Never Tobacco comments: years Vaping Use Vaping status: Never Used Substance Use Topics Alcohol use: Yes Comment: rarely Drug use: No REVIEW OF SYMPTOMS: REVIEW OF SYSTEMS: General: The patient denies fatigue, denies weight loss, denies weight gain, denies feeling hot, and feelings of cold. Eyes: The patient denies glaucoma, denies eye injury/surgery, denies glasses or contacts. Ear/Nose/Throat: The patient denies allergies, denies hayfever, denies ear infections, and denies bloody noses. (more content not included)...[facility]06-19-2025 Telephone encounter Note* Telephone Encounter - Malia Escobar RN - 10/02/2024 10:35 AM EDT Pt called in went over information and when he had last Colonoscopy. Pt put through to scheduling to set up General Surgery appointment. Malia Escobar RN [facility]06-[facility] Miscellaneous Notes* Telephone Encounter - Malia Escobar RN - 10/02/2024 10:35 AM EDT Pt called in went over information and when he had last Colonoscopy. Pt put through to scheduling to set up General Surgery appointment. Malia Escobar, HALEY * Telephone Encounter - Sierra Resendez MA - 10/02/2024 9:38 AM EDT Notified via Campalystt he can call in to schedule. Sierra Resendez MA * Telephone Encounter - Analilia Ram MA - 10/02/2024 8:09 AM EDT Notified pt of PCP's message below. Pt notified that Gen Surg consult has been placed. Asked pt if he wants to have a Stratigrapher contact him to be scheduled. Analilia Ram MA * Telephone Encounter - Dixon Valadez MD - 10/01/2024 4:54 PM EDT With his multiple medical issues I would recommend Surg consult to discuss colonoscopy. Consult ordered Dixon Valadez MD documented [facility]06-[facility] Telephone encounter Note * Telephone Encounter - Sierra Resendez MA - 10/02/2024 9:38 AM EDT Notified via Campalystt he can call in to schedule. Sierra Resendez MA [facility]06-[facility] Telephone encounter Note* Telephone Encounter - Analilia Ram MA - 10/02/2024 8:09 AM EDT Notified pt of PCP's message below. Pt notified that Gen Surg consult has been placed. Asked pt if he wants to have a Stratigrapher contact him to be scheduled. Analilia Ram MA [facility]06-[facility] Telephone encounter Note* Telephone Encounter - Dixon Valadez MD - 10/01/2024 4:54 PM EDT With his multiple medical issues I would recommend Surg consult to discuss colonoscopy. Consult ordered Dixon Valadez MD [facility]06-18-[facility] Instructions* Patient Instructions* Carina Crystal MA - 10/01/2024 8:24 AM EDT COLONOSCOPY BOWEL PREPARATION INSTRUCTIONS GOLYTELY/NULYTELY/TRILYTE/COLYTE Your doctor has scheduled you for a colonoscopy. To have a successful colonoscopy, you must have a clean colon, that is empty. A clean colon allows your doctor to see the entire colon & diagnose issues like polyps or cancer. For doctors, a clean colon is like driving on a tanner day; a dirty colon like driving in a storm. It is very important that you follow these instructions exactly, or your colonoscopy might not be as effective, could be canceled, and you may need to do the bowel prep and the colonoscopy again. TRANSPORTATION REQUIREMENTS You are receiving IV sedation. For your safety, a responsible adult escort must accompany you to and from your procedure: Your adult escort MUST be present with you at check-in for your colonoscopy. Your adult escort MUST remain in the endoscopy area until you are discharged. Your adult escort MUST transport you home once you are discharged. You are NOT allowed to operate any form of transportation (i.e. drive a car, bicycle, etc.) or leave the Endoscopy Center ALONE. It is not safe to do so. If you cannot meet these requirements, your procedure will be canceled. MEDICATION REQUIREMENTS For your safety, certain medications will need to be stopped or adjusted before you can have your procedure: BLOOD THINNERS: If you take blood thinners, such as Coumadin (warfarin), Plavix (clopidogrel), Ticlid (ticlopidine hydrochloride), Agrylin (anagrelide), Xarelto (Rivaroxaban), Pradaxa (Dabigatran), Eliquis (Apixaban), or Effient (Prasugrel), contact the physician who is prescribing these medications at least 2 weeks prior to your procedure to discuss any necessary adjustments. DIABETES: If you take medications for diabetes, your dosage may need to be adjusted. If you are being treated for diabetes with insulin, diabetic pills, or other injectable medicationsdo not take your REGULAR dose after midnight on the day of your procedure. If you are taking any other types of insulin such as Lantus, Humalog, NPH (long- acting insulin), or70/30 insulin, take half your normal dose the day before your procedure. DIABETES/WEIGHT MANAGEMENT: If you take medications for weight-loss, your dosage may need to be adjusted Contact the doctor who prescribes this medication for further instructions. If you take medications for weight-loss like semaglutide (Ozempic, Wegovy, Rybelsus), dulaglutide (Trulicity), liraglutide (Victoza, Saxenda), exenatide (Byetta, Bydureon), or lixisenatide (Adylyxin), stop your medication 1 week prior to your procedure. If you take medications like canagliflozin (Invokana), dapagliflozin (Farxiga, Forxiga), empagliflozin (Jardiance), stop your medication 3 days prior to your procedure. If you take ertugliflozin (Steglatro) stop your medication 4 days prior to your procedure. IRON: If you take iron pills, STOP them 1 week BEFORE your procedure, may resume after. OTHER MEDS: May take all other medications (including aspirin, antibiotics, water pills / diureticslike Lasix or Metolozone, blood pressure meds, etc.) at their usual scheduled time with a sip of water. DIET REQUIREMENTS The day before your colonoscopy, you may have a clear liquid diet (see below). The day of your colonoscopy, you may continue a clear liquid diet until 3 hours before your colonoscopy. Within 3 hours of your colonoscopy, take only any medications (as above) with a sip of water. Clear Liquid Diet Broth (chicken, beef or vegetable broth or bullion. Just the broth, no solids). Water Coffee or Tea (NO milk or creamer), but sugar and sugar substitutes are allowed. Clear liquids including clear, yellow, green, blue (NO red, NO orange, NO purple) Sodas / soft drinks Gatorade or other sports drinks Abrahan-Aid or flavored drinks Plain Jell-O or other gelatins Fruit juice (strained; no-pulp) Popsicles or hard candy BOWEL PREPARATION (GOLYTELY/NULYTELY/TRILYTE/COLYTE) Split Dosing Bowel Prep: This means drinking your bowel prep in two doses. Split dosing helps cleanyour colon better and makes it less likely that your procedure will be canceled. Fill your prescription for Golytely/Nulytely/Trilyte/Colyte: The afternoon before your colonoscopy, mix the solution and refrigerate. You may add the flavor pack (if present) that came with the bowel preparation. Do not add ice, sugar, or other flavorings to the solution. You will drink your prep in two doses, by several hours. On the evening before your colonoscopy: 1. 6 PM drink the first half of the bowel preparation solution. Drink one 8-ounce glass every 15 minutes. 2. Six hours before your colonoscopy, drink the second half of the solution. Drink one 8-ounce glass every 15 minutes. 3. You may continue a clear liquid diet until 3 hours before your colonoscopy. Bowel prep can work differently from person to person. Some people's bowels move slowly and they may need different instructions. Please see your doctor in office or virtually for personalized bowel prep instructions if you have: Medical condition that needs special accommodations Had a poor bowel prep results or failed bowel prep attempts in the past. Had difficulty with anesthesia during the procedure. FREQUENTLY ASKED QUESTIONS Q: What if I suffer from constipation? A: Recommend taking extra laxatives to resolve your constipation days prior to entering the bowel prep day. Q: What if have had prior poor preps results in past? A: Contact your physician as you will likely need additional bowel prep instructions. Q: What if I have motility issues like Parkinson's, MS (multiple sclerosis), wheelchair dependent, etc.? or on medications that slow bowel emptying (narcotics, gabapentin, anticholinergic medicationsetc.) A: Contact your physician as you will likely need extra time and additional laxatives to complete your bowel prep. Q: What if I cannot drink large volume of liquid? A: Start your prep 2-3 hours earlier to allow yourself more time to complete the entire prep. Q: What if I can't finish my bowel prep? A: If you cannot finish your entire bowel prep, it is likely that your colonoscopy will need to be rescheduled due to poor prep quality. Q: What if I had bariatric surgery? Do I still have to complete the entire prep? A: Yes, gastric bypass surgery involves the stomach & small bowel. You may need to drink smaller amounts, slower (may need more time to complete your bowel prep). Gastric bypass does not alter the length of your colon so you will need to complete the entire bowel prep, it may just take longer time to complete it. Q: What if I am on dialysis? A: Please consult your gem cutter prior to scheduling to get instructions pertinent to you. In general, dialysis patients take the MOOVIAytely bowel prep and have the procedure same day of their dialysis (colonoscopy in AM, dialysis in PM). Q: How do I know if something is considered as clear liquid diet? A: If you can pour it in a glass and you can see through it, it is considered clear liquid Q: Can I eat nuts, seeds, beans, popcorn, dried fruits, vegetables & fruits that have skin peel? A: No, you will need to not eat these items starting 3 days prior to procedure. Q: Can I take Uber/Lyft/taxi/bus home? A: An adult MUST be present with you at check-in for your colonoscopy and remain in the endoscopy area until you are discharged. You can take Uber home only if this adult escort is with you at check in, remain in the endoscopy area until you are discharged, and takes the Uber with you to home. Q: Can I sleep it off here and drive myself home? A: No, you must have an adult with you at time of procedure check in, remain in the endoscopy center during your procedure, and drive you home. You cannot drive a vehicle after your procedure the rest of the day. documented [facility]04-[facility] Telephone encounter Note * Telephone Encounter - Irene Logan RN - 08/13/2024 4:10 PM EDT Patient called asking about results. Informed patient that the results are still in process, the office will contact him when results are available. Informed results from blood work today is not available. Irene Logan RN [facility] Work Phone: [phone] 310-718904-30-2025 Miscellaneous Notes* Telephone Encounter - Irene Logan RN - 08/13/2024 4:10 PM EDT Patient called asking about results. Informed patient that the results are still in process, the office will contact him when results are available. Informed results from blood work today is not available. Irene Logan RN documented in this encounterMi[facility]04-25-2025 NoteHNO ID: [id number] Author: HARRIETT HARMON APRN.SHREYA Service: ? Author Type: Nurse Practitioner Type: Progress Notes Filed: 08/08/2024 08:09 Note Text: Department of Dermatology Harriett Harmon APRN.SUPPORT SERVICE TECH Last visit in Dermatology: 02/04/2021 Objective/Assessment/Plan Skin Exam 1. INFLAMED SEBORRHEIC KERATOSIS (5) Left Upper Back (2), Right Temporal Scalp (2), Right Upper Back Irritated hyperpigmented, stuck-on papule CRYOTHERAPY SKIN LESION - Left Upper Back (2), Right Temporal Scalp (2), Right Upper Back Complexity: simple Destruction method: cryotherapy Informed consent: discussed and consent obtained Timeout: patient name, date of , surgical site, and procedure verified Lesion destroyed using liquid nitrogen: Yes Region frozen until ice ball extended beyond lesion: Yes Cryotherapy cycles: 2 Outcome: patient tolerated procedure well with no complications Post-procedure details: wound care instructions given Additional details: Seborrheic Keratoses - Discussed etiology and natural history of condition, including benign nature. - Discussed that if symptomatic/bothersome, may consider intervention. - If asymptomatic intervention would be cosmetic in nature. - Discussed risks and benefits of observation vs cryotherapy vs shave removal vs curettage. - Patient opts for cryotherapy Cryosurgery of non-malignant lesion(s) Risks, benefits, alternatives and personnel required for cryosurgery reviewed with patient. Pt verbalizes understanding and wishes to proceed. 2. SEBORRHEIC KERATOSIS Generalized Stuck-on verrucous, variably pigmented papules and plaques. Scattered to the trunk, bilateral upper extremities, bilateral lower extremities. Observational course. Monitor for growth and changes. 3. MULTIPLE BENIGN NEVI Generalized Multiple scattered pink papules with flaccid epidermis and small, symmetric cabrales to brown macules with uniform pigmentation over the trunk and extremities. Observational course. Monitor for growth and changes. 4. LENTIGINES Generalized Densely scattered light cabrales macules and small patches on all sun exposed areas. Observational course. Monitor for growth and changes. 5. SIMENTAL ANGIOMA Generalized Simental-red papules scattered to the trunk, bilateral upper extremities, bilateral lower extremities. Observational course. Monitor for growth and changes. 6. HISTORY OF NONMELANOMA SKIN CANCER Generalized No evidence of recurrence at previous surgical site Recommend annual skin exams and regular dermatology follow up 7. SKIN CANCER SCREENING Generalized The patient's skin was examined for evidence of cutaneous malignancy. The nature of sun-induced photo-aging and skin cancers is discussed. Sun avoidance, protective clothing, and the use of 30-SPF sunscreens is advised. Patient is instructed to perform regular self exams. Patient instructed to observe for changing, symptomatic, or new skin lesions and encouraged to contact our office for evaluation. Follow-up as noted below or as needed. Chief Complaint: Patient presents with: Full Body Skin Check Subjective and Objective HPI: Reginald Vaughn is a 73 year old male who presents for: Skin check. 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 Past medical history is reviewed. Medication list is reviewed. Physical Exam included: Scalp, face, ears, neck, chest, back, abdomen, bilateral upper extremities, bilateral lower extremities, buttocks, hands, nails and hair Intake information obtained by Warner Polo LPN The documentation for this note was completed by Padmaja Veras MA acting as scribe for Harriett Harmon APRN.SUPPORT SERVICE TECH. August 08, 2024 7:49 AM I agree with the Chief Complaint, ROS, and Past Histories independently gathered by the clinical it application support analyst and the remaining scribed note accurately describes my personal service to the patient. Harriett Harmon APRN.[facility] NoteHNO ID: [id number] Author: VICKIE LUNA MD Service: ? Author Type: Physician Type: Progress Notes Filed: 06/19/2024 20:17 Note Text: FOLLOW UP VISIT - HERNIA NAME: Reginald Fajardo [facility] NO.: [id number] DATE OF SERVICE: 06/18/2024 : 1950 REFERRING PHYSICIAN: Dixon Valadez MD Reginald is a patient I am following for a a complaint of a bulge and discomfort in his prior supraumbilical incision. The patient first noticed a hernia this summer which was smaller but he at the time noted some discomfort in this area with lifting, straining, and coughing. The symptoms have increased, over the past few months. He notes the site is much larger than it was before. He notes a chronic dull pain. He states it reduces when he lays back down but pushes back out. He states he has trouble doing exercise due to the discomfort. He notes no changes in his bowel function and no obstructive symptoms. The patient underwent a robotic prostatectomy in 2020. This was followed with radiation. He had a follow-up PET CT scan in 2021 which when reviewing the CAT scan images demonstrated was felt to be a small incisional hernia at the midline robotic port site which is certainly grown over time based on clinical evaluation. The patient was seen by his primary care physician who felt the patient has a hernia. Reginald was referred for evaluation and treatment. I performed a laparoscopic incisional hernia repair with mesh on June 02, 2024. The patient was found of a 4.5 cm defect. He had a somewhat larger hernia sac which was dissected in a hybrid fashion. The fascial defect was closed and this was reinforced with a 10 x 15 cm mesh. The patient currently notes he is doing quite well minimal. his appetite has been good. he denies fever, chills or abdominal pain. he does note some minimal incisional discomfort. he notes no bulges at the operative site VITALS: Blood pressure 153/90, pulse 100, SpO2 98%. On examination, the abdomen is benign. The incisions are healing well without signs of infection or inflammation. There are no signs of recurrent hernia formation. Assessment IMPRESSION: status post laparoscopic incisional hernia repair with mesh PLAN: If the patient notes any problems, he should contact me immediately. he may return to his regular activities as tolerated, with the exception of no lifting greater than 20 pounds for the next 6 weeks. Diagnoses: (K43.9) Abdominal wall hernia (primary encounter diagnosis) Return to Clinic: The patient is instructed to follow-up with me as needed. [facility] History of Present illness Narrative* Vickie Luna MD - 06/19/2024 8:14 PM EST FOLLOW UP VISIT - HERNIA NAME: Reginald E [facility] NO.: [id number] DATE OF SERVICE: 06/18/2024 : 1950 REFERRING PHYSICIAN: Dixon Valadez MD Reginald is a patient I am following for a a complaint of a bulge and discomfort in his prior supraumbilical incision. The patient first noticed a hernia this summer which was smaller but he at the time noted some discomfort in this area with lifting, straining, and coughing. The symptoms have increased, over the past few months. He notes the site is much larger than it was before. He notes a chronic dull pain. He states it reduces when he lays back down but pushes back out. He states he has trouble doing exercise due to the discomfort. He notes no changes in his bowel function and no obstructive symptoms. The patient underwent a robotic prostatectomy in 2020. This was followed with radiation. He had a follow-up PET CT scan in 2021 which when reviewing the CAT scan images demonstrated was felt to be a small incisional hernia at the midline robotic port site which is certainly grown over time based onclinical evaluation. The patient was seen by his primary care physician who felt the patient has a hernia. Reginald was referred for evaluation and treatment. I performed a laparoscopic incisional hernia repair with mesh on June 02, 2024. The patient wasfound of a 4.5 cm defect. He had a somewhat larger hernia sac which was dissected in a hybrid fashion. The fascial defect was closed and this was reinforced with a 10 x 15 cm mesh. The patient currently notes he is doing quite well minimal. his appetite has been good. he denies fever, chills or abdominal pain. he does note some minimal incisional discomfort. he notes no bulges at the operative site VITALS: Blood pressure 153/90, pulse 100, SpO2 98%. On examination, the abdomen is benign. The incisions are healing well without signs of infection orinflammation. There are no signs of recurrent hernia formation. Assessment IMPRESSION: status post laparoscopic incisional hernia repair with mesh PLAN: If the patient notes any problems, he should contact me immediately. he may return to his regular activities as tolerated, with the exception of no lifting greater than 20 pounds for the next 6 weeks. Diagnoses: (K43.9) Abdominal wall hernia (primary encounter diagnosis) Return to Clinic: The patient is instructed to follow-up with me as needed. Vickie Lnua MD [facility] Telephone encounter Note * Telephone Encounter - Ada Mariano LPN - 06/05/2024 1:42 PM EST Images from the original note were not included. Prior authorization approved Payer: [facility] PBM Part D [id number] Note from payer: Request Reference Number: [id number]. MOUNJARO INJ 15MG/0.5 is approved through 04/15/2025. Your patient may now fill this prescription and it will be covered. Approval Details Authorization number: [id number] Authorized from June 05, 2024 to April 15, 2025 Electronic appeal: Not supported View History Notes Time User Attachment Attachment received from payer. 06/05/2024 1:03 PM Cchs, Rx Priorauth In Document Medication Being Authorized tirzepatide (MOUNJARO) 15 mg/0.5 mL pen injector Inject 15 mg subcutaneously one time a week. Dispense: 6 mL Refills: 3 Start: 06/05/2024 End: 06/05/2025 Class: Normal Diagnoses: Type 2 diabetes mellitus without complication, without long-term current use of insulin (HCC) This order has been released to its destination. To be filled at: [facility] [place] [address] - [address] [phone] [facility]02-20-[facility] Miscellaneous Notes* Telephone Encounter - Ada Mariano LPN - 06/05/2024 1:42 PM EST Images from the original note were not included. Prior authorization approved Payer: [facility] P[employer] Part D [id number] Note from payer: Request Reference Number: [id number]. MOUNJARO INJ 15MG/0.5 is approved through 04/15/2025. Your patient may now fill this prescription and it will be covered. Approval Details Authorization number: [id number] Authorized from June 05, 2024 to April 15, 2025 Electronic appeal: Not supported View History Notes Time User Attachment Attachment received from payer. 06/05/2024 1:03 PM Cchs, Rx Priorauth In Document Medication Being Authorized tirzepatide (MOUNJARO) 15 mg/0.5 mL pen injector Inject 15 mg subcutaneously one time a week. Dispense: 6 mL Refills: 3 Start: 06/05/2024 End: 06/05/2025 Class: Normal Diagnoses: Type 2 diabetes mellitus without complication, without long-term current use of insulin (HCC) This order has been released to its destination. To be filled at: [facility] [place] [address] - [address] [phone] * Telephone Encounter - Ada Mariano LPN - 06/05/2024 10:52 AM EST Electronic PA rec'd and completed for mounjaro. documented [facility] Telephone encounter Note * Telephone Encounter - Ambreen Manuel MA - 06/05/2024 12:59 PM EST Electronic PA already initiated 06/05 10:51 AM. Ambreen Manuel MA [facility]02-20-2025 Miscellaneous Notes* Telephone Encounter - Ambreen Manuel MA - 06/05/2024 12:59 PM EST Electronic PA already initiated 06/05 10:51 AM. Ambreen Manuel MA * Telephone Encounter - Ritu Yang RN - 06/05/2024 10:49 AM EST Patient states he needs prior authorization on Mounjaro. * Telephone Encounter - Dixon Valadez MD - 06/05/2024 10:46 AM EST OK to refill as ordered Dixon Valadez MD * Telephone Encounter - Ritu Yang RN - 06/05/2024 10:34 AM EST Patient calls and states that he needs all medications to go to [facility]. Patient states that he will also need prior authorization done on Mounjaro. The patient has been identified by name and date of : Yes Caregiver verified no other encounters exist for this prescription request: Yes Caregiver confirmed with patient/requestor that no other refills are due, in the near future, with this provider at this time: Yes The last office visit in the department: 05/22/2024 Does the patient have a future office visit with this provider/department: Yes 11/20/2024 Requested Prescriptions Pending Prescriptions Disp Refills tirzepatide (MOUNJARO) 15 mg/0.5 mL pen injector 6 mL 3 Sig: Inject 15 mg subcutaneously one time a week. atorvastatin (LIPITOR) 40 mg tablet 90 tablet 3 Sig: Take 1 tablet by mouth once daily. folic acid 1 mg tablet 90 tablet 3 Sig: Take 1 tablet by mouth once daily. metFORMIN ER (GLUCOPHAGE XR) 500 mg 24 hr tablet 360 tablet 3 Sig: Take 1 tablet by mouth two times a day with meals. metoprolol tartrate, short acting, (LOPRESSOR) 50 mg tablet 180 tablet 3 Sig: Take 1 tablet by mouth every 12 hours. Ritu Yang RN June 05, 2024 10:36 AM Prior Authorization Documentation Prior authorization requested for the following medication: Medication: tirzepatide 15 mg Provider: Dr. Dixon Valadez Insurance Company Name: [facility] AAR Patient ID number: [id number] [facility] documented [facility] Telephone encounter Note * Telephone Encounter - Ada Mariano LPN - 06/05/2024 10:52 AM EST Electronic PA rec'd and completed for mounjaro. [facility]02-20-2025 Telephone encounter Note* Telephone Encounter - Ritu Yang RN - 06/05/2024 10:49 AM EST Patient states he needs prior authorization on Mounjaro. [facility]02-20-2025 Telephone encounter Note* Telephone Encounter - Dixon Valadez MD - 06/05/2024 10:46 AM EST OK to refill as ordered Dixon Valadez MD [facility]02-20-2025 Telephone encounter Note* Telephone Encounter - Ritu Yang RN - 06/05/2024 10:34 AM EST Patient calls and states that he needs all medications to go to [facility]. Patient states that he will also need prior authorization done on Mounjaro. The patient has been identified by name and date of : Yes Caregiver verified no other encounters exist for this prescription request: Yes Caregiver confirmed with patient/requestor that no other refills are due, in the near future, with this provider at this time: Yes The last office visit in the department: 05/22/2024 Does the patient have a future office visit with this provider/department: Yes 11/20/2024 Requested Prescriptions Pending Prescriptions Disp Refills tirzepatide (MOUNJARO) 15 mg/0.5 mL pen injector 6 mL 3 Sig: Inject 15 mg subcutaneously one time a week. atorvastatin (LIPITOR) 40 mg tablet 90 tablet 3 Sig: Take 1 tablet by mouth once daily. folic acid 1 mg tablet 90 tablet 3 Sig: Take 1 tablet by mouth once daily. metFORMIN ER (GLUCOPHAGE XR) 500 mg 24 hr tablet 360 tablet 3 Sig: Take 1 tablet by mouth two times a day with meals. metoprolol tartrate, short acting, (LOPRESSOR) 50 mg tablet 180 tablet 3 Sig: Take 1 tablet by mouth every 12 hours. Ritu Yang RN June 05, 2024 10:36 AM Prior Authorization Documentation Prior authorization requested for the following medication: Medication: tirzepatide 15 mg Provider: Dr. Dixon Valadez Insurance Company Name: [facility] Patient ID number: [id number] [facility]02-[facility]25 NoteHNO ID: [id number] Author: JACOBO ZUNIGA APRN.CRNA Service: Anesthesiology Author Type: Nurse Territory Supervisor Type: Anesthesia Procedure Notes Filed: 06/02/2024 09:52 Note Text: ANESTHESIOLOGY PROCEDURE NOTE Airway General Information Procedure Start Time/Medication Administration: 06/02/2024 9:44 AM Procedure End Time: 06/02/2024 9:23 AM Patient location during procedure: OR Timeout Performed Pre-procedure: timeout performed Consent Obtained: Yes 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 CALCULUS TEACHER: Jacobo Zuniga APRN.CALCULUS TEACHER Performed by: anesthesiologist Indications and Patient Condition Indications for airway management: anesthesia Preoxygenated: yes anesthesia circuit Method: sleep Cricoid Pressure: No Manual In-Line Stabilization: No Difficult Mask: No Final Airway Details Final airway type: endotracheal airway Final Endotracheal Airway: ETT Cuffed: yes Successful intubation technique: direct laryngoscopy Devices used: Raman Endotracheal tube insertion site: oral Blade: Ez Blade size: #4 ETT size (mm): 7.5 Measured from: lips Measurement (cm): 22 Placement verified by: chest auscultation and capnometry Cormack-Lehane Classification: grade I - full view of glottis Number of attempts at approach: 1 Other Attempts Unsuccessful attempted endotracheal techniques: direct laryngoscopy Failed airway: no Unrecognized esophageal intubation: no Airway not difficult Comments Per respiratory student Prasanth SIGNATURE: Jacobo Zuniga APRN.CALCULUS TEACHER PATIENT NAME: Reginald Vaughn DATE: June 02, 2024 TIME: 9:50 AM CSN: [id number] Telephone encounter Note* Telephone Encounter - Narinder Blum PA-C - 05/26/2024 7:43 AM EST Patient seen by PAT on 05/20/24 instructed to stop mounjaro one week prior to his procedure scheduledwith Dr Luna on 06/02/24. Narinder Blum PA-C [facility] Work Phone: [phone] 180-339902-10-2025 Miscellaneous Notes* Telephone Encounter - Narinder Blum PA-C - 05/26/2024 7:43 AM EST Patient seen by PAT on 05/20/24 instructed to stop mounjaro one week prior to his procedure scheduledwith Dr Luna on 06/02/24. Narinder Blum PA-C documented in this encounter[facility]02-06-2025 History of Present illness Narrative* Dixon Valadez MD - 05/22/2024 9:20 AM EST Chief Complaint Patient presents with: 6 Month Exam HPI Reginald Vaughn is a 73 year old male who presents here today for a 6 month follow up. Pt here today for his routine follow up. Hx of Prostate cancer, follows with Dr. العراقي once a year now. No urinary issues. Denies any bowelissues. Was referred to General Surgery at most recent acute visit due to abdominal pain near his navel with protrusion. Pt found to have abd hernia. Pt seen by Dr. Luna on 04/02/24, scheduled for surgical repaint 06/02. HTN: Denies monitoring his BP at home or having symptoms of chest pain, sob, or dizziness. Follows with Cardiology at [facility]. On current regimen of Lisinopril 10 mg once daily and Lopressor 50 mg 1 tab po bid. Lipids:Cardiac hx of CAD, s/p CABG, and NSTEMI. Follows with Cardiology at [facility]. Also following for aortic stenosis, moderate on last echo. Tries to watch his diet and do some exercises. On current regimen of Plavix 75 mg once daily, Lipitor 40 mg once daily and ASA 81 mg daily. DM: Checks sugars once daily with FBS 100-114. Denies any low blood sugars or neuropathy symptoms. On current regimen of Mounjaro 15 mg once weekly and Metformin XR 500 mg 2 tabs po bid. Follows withDr. Evangelista for routine eye exams. Follows with Jasmin Abdi PA-C in Derm for routine skin checks. Past medical history, appointments, medications, allergies reviewed. Previous Medical History PAST MEDICAL HISTORY Diagnosis Date Arthritis Basal cell carcinoma (BCC) of skin of lower extremity including hip 05/20/2024 Bladder stones BPH (benign prostatic hyperplasia) CAD (coronary artery disease) Cancer (HCC) skin ca Former smoker 05/20/2024 History of colon polyps 07/24/2013 History of prostate cancer 05/20/2024 HTN (hypertension) 05/20/2024 Mixed hyperlipidemia Morbid obesity (HCC) 05/20/2024 Prostate cancer (HCC) SCCA (squamous cell carcinoma) of skin 05/20/2024 Snoring 05/20/2024 Type 2 diabetes mellitus, without long-term current use of insulin (HCC) 06/20/2021 Previous Surgical History PAST SURGICAL HISTORY Procedure Laterality Date ARTHROSCOPY KNEE DIAGNOSTIC W/WO SYNOVIAL BX SPX Right 1989 Meniscal tear CABG (4) VEIN GRAFTS & ARTERIAL GRAFT(S) 06/08/2021 COLONOSCOPY FLX DX W/COLLJ SPEC WHEN PFRMD 07/24/2013 Colonoscopy COLONOSCOPY FLX DX W/COLLJ SPEC WHEN PFRMD 09/15/2016 Colonoscopy COLSC FLX W/RMVL OF TUMOR POLYP LESION SNARE TQ 12/30/2019 PAST SURGICAL HISTORY OF Right 2014 repair biceps tendon ROTATOR CUFF REPAIR Left 04/18/2013 Family History FAMILY HISTORY Problem Relation Age of Onset Diabetes Mother Emphysema Father Asbestosis Diabetes Brother Asthma Brother Patient Allergies ALLERGIES Allergen Reactions Ozempic [Semaglutid* Diarrhea Keflex [Cephalexin] Other: See Comments Joint Pain Current Medications Current Outpatient Medications on File Prior to Visit Medication Sig tirzepatide (MOUNJARO) 15 mg/0.5 mL pen injector Inject 15 mg subcutaneously one time a week. metFORMIN ER (GLUCOPHAGE XR) 500 mg 24 hr tablet Take 1 tablet by mouth two times a day with meals. Lancets Test blood sugar(s) 3 times daily. Dx: Type 2 DM - Controlled E11.9 Insulin: Yes blood sugar diagnostic (FREESTYLE LITE STRIPS) test strip Test blood sugar(s) 3 times daily. Dx: Type 2 DM - Controlled E11.9. Insulin: Yes. Lancing Device with Lancets Use with blood glucose test three times a day. Insulin Dep? Yes atorvastatin (LIPITOR) 40 mg tablet Take 1 tablet by mouth once daily. folic acid 1 mg tablet Take 1 tablet by mouth once daily. metoprolol tartrate, short acting, (LOPRESSOR) 50 mg tablet Take 1 tablet by mouth every 12 hours. LISINOPRIL ORAL Take 10 mg by mouth. Blood-Glucose Meter (TRUE METRIX AIR GLUCOSE METER) Test blood sugar(s) 3 times daily. Dx: Type 2 DM - Controlled E11.9 Insulin: Yes Blood Pressure Monitor CHECK vital signs daily or as needed aspirin 81 mg chewable tablet Take 1 tablet by mouth once daily. Take one ASPIRIN daily for life. acetaminophen (TYLENOL) 500 mg tablet Take 2 tablets by mouth four times daily. (Patient taking differently: Take 1,000 mg by mouth two times a day.) No current facility-administered medications on file prior to visit. Social History Social History Tobacco Use Smoking status: Former Current packs/day: 0.00 Types: Cigarettes Quit date: 07/29/2010 Years since quittin.8 Smokeless tobacco: Never Tobacco comments: years Vaping Use Vaping status: Never Used Substance Use Topics Alcohol use: Yes Comment: rarely Drug use: No EXAM: BP 140/80 Pulse 78 Resp 16 Wt 106 kg (233 lb 11 oz) BMI 34.01 kg/m General Appearance: Well appearing, alert, in no acute distress, well-hydrated, well nourished.. Lungs: Lungs clear to auscultation. No wheezing, rhonchi, rales.. Heart: Positive findings: murmur: 2/6 systolic medium pitched soft murmur URSB; RRR . Health Maintenance List BP Controlled (<130/80) Never done Dilated Retinal Exam due on 09/06/2023 Diabetic Foot Exam due on 11/19/2023 Advance Directive Discussion due on 04/16/2024 Shingrix Vaccine(1 of 2) due on 11/19/2024 Urine Albumin:Creatinine Ratio due on 11/15/2024 HbA1C due on 11/16/2024 Depression Screening due on 11/19/2024 Anxiety Screening due on 11/19/2024 Colorectal Cancer Screening due on 12/29/2024 Annual PCP Team Chronic Disease Visit due on 03/24/2025 LDL Cholesterol due on 05/19/2025 DTaP,Tdap,Td Vaccine(2 - Td or Tdap) due on 05/24/2027 Abdominal Aortic Aneurysm Screening Completed Influenza Vaccine Completed RSV Vaccine Completed Covid-19 Vaccine Completed Pneumococcal Vaccine: 50+ Completed Hepatitis C Screening Addressed HPV Vaccine Aged Out Data reviewed Appointment on 05/19/2024 Component Date Value Protein, Total 05/19/2024 6.6 Albumin 05/19/2024 4.2 Calcium, Total 05/19/2024 9.2 Bilirubin, Total 05/19/2024 0.5 Alkaline Phosphatase 05/19/2024 77 AST 05/19/2024 18 ALT 05/19/2024 15 Glucose 05/19/2024 96 BUN 05/19/2024 15 Creatinine 05/19/2024 0.75 Sodium 05/19/2024 141 Potassium 05/19/2024 4.3 Chloride 05/19/2024 104 CO2 05/19/2024 26 Anion Gap 05/19/2024 11 Estimated Glomerular Colin* 05/19/2024 95 Cholesterol, Total 05/19/2024 155 Triglyceride 05/19/2024 133 HDL Cholesterol 05/19/2024 43 Non HDL Cholesterol 05/19/2024 112 Fasting Time 05/19/2024 12 VLDL Cholesterol 05/19/2024 27 TC:HDL Ratio 05/19/2024 3.60 LDL Cholesterol 05/19/2024 85 LDL:HDL Ratio 05/19/2024 1.98 Hemoglobin A1C 05/19/2024 4.7 Estimated Average Glucose 05/19/2024 88 ASSESSMENT/PLAN: 1. Type 2 diabetes mellitus with other specified complication, without long-term current use of insulin (HCC) - ICD9: 250.80, ICD10: E11.69 (primary diagnosis) - Controlled - Continue current medications - Counseled on healthy diet and regular exercise - COMPREHENSIVE METABOLIC PANEL - LIPID PANEL BASIC - HEMOGLOBIN A1C 2. Chronic systolic (congestive) heart failure (HCC) - ICD9: 428.22, 428.0, ICD10: I50.22 Stable - Continue current medications - Recommend regular aerobic exercise - COMPREHENSIVE METABOLIC PANEL - LIPID PANEL BASIC 3. Prostate cancer (HCC) - ICD9: 185, ICD10: C61 Follow with Urology annually 4. 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) - ICD9: 414.01, 413.9, ICD10: I25.118 Follow with Cardiology Continue current medications. - COMPREHENSIVE METABOLIC PANEL - LIPID PANEL BASIC 5. Mixed hyperlipidemia - ICD9: 272.2, ICD10: E78.2 - Controlled - Continue current medications - Counseled on healthy diet and regular exercise 6. Hypertension, unspecified type - ICD9: 401.9, ICD10: I10 - Controlled - Continue current medications - Recommend home blood pressure monitoring, to bring results to next visit - Encouraged sodium restriction, DASH or Mediterranean diet - Recommend regular aerobic exercise - COMPREHENSIVE METABOLIC PANEL - LIPID PANEL BASIC Follow up in 6 months I agree with the Chief Complaint, ROS, and Past Histories independently gathered by the clinical it application support analyst and the remaining scribed note accurately describes my personal service to the patient. Medical Decision Making: Problems: Moderate: 2+ stable chronic illnesses Data: Unique test(s) ordered: 3+ Risk: Moderate: Drug management Medical Decision Making Level: 4 - Moderate Dixon Valadez MD The documentation for this note was completed by Sierra Resendez MA acting as scribe for Dixon Valadez MD. May 22, 2024 8:46 AM. Sierra Resendez MA documented [facility] NoteHNO ID: [id number] Author: DIXON VALADEZ MD Service: ? Author Type: Physician Type: Progress Notes Filed: 05/22/2024 10:09 Note Text: Chief Complaint Patient presents with: 6 Month Exam HPI Reginald Vaughn is a 73 year old male who presents here today for a 6 month follow up. Pt here today for his routine follow up. Hx of Prostate cancer, follows with Dr. العراقي once a year now. No urinary issues. Denies any bowel issues. Was referred to General Surgery at most recent acute visit due to abdominal pain near his navel with protrusion. Pt found to have abd hernia. Pt seen by Dr. Luna on 04/02/24, scheduled for surgical repaint 06/02. HTN: Denies monitoring his BP at home or having symptoms of chest pain, sob, or dizziness. Follows with Cardiology at [facility]. On current regimen of Lisinopril 10 mg once daily and Lopressor 50 mg 1 tab po bid. Lipids:Cardiac hx of CAD, s/p CABG, and NSTEMI. Follows with Cardiology at [facility]. Also following for aortic stenosis, moderate on last echo. Tries to watch his diet and do some exercises. On current regimen of Plavix 75 mg once daily, Lipitor 40 mg once daily and ASA 81 mg daily. DM: Checks sugars once daily with FBS 100-114. Denies any low blood sugars or neuropathy symptoms. On current regimen of Mounjaro 15 mg once weekly and Metformin XR 500 mg 2 tabs po bid. Follows with Dr. Evangelista for routine eye exams. Follows with Jasmin Abdi PA-C in Derm for routine skin checks. Past medical history, appointments, medications, allergies reviewed. Previous Medical History PAST MEDICAL HISTORY Diagnosis Date Arthritis Basal cell carcinoma (BCC) of skin of lower extremity including hip 05/20/2024 Bladder stones BPH (benign prostatic hyperplasia) CAD (coronary artery disease) Cancer (HCC) skin ca Former smoker 05/20/2024 History of colon polyps 07/24/2013 History of prostate cancer 05/20/2024 HTN (hypertension) 05/20/2024 Mixed hyperlipidemia Morbid obesity (HCC) 05/20/2024 Prostate cancer (HCC) SCCA (squamous cell carcinoma) of skin 05/20/2024 Snoring 05/20/2024 Type 2 diabetes mellitus, without long-term current use of insulin (HCC) 06/20/2021 Previous Surgical History PAST SURGICAL HISTORY Procedure Laterality Date ARTHROSCOPY KNEE DIAGNOSTIC W/WO SYNOVIAL BX SPX Right 1989 Meniscal tear CABG (4) VEIN GRAFTS AND ARTERIAL GRAFT(S) 06/08/2021 COLONOSCOPY FLX DX W/COLLJ SPEC WHEN PFRMD 07/24/2013 Colonoscopy COLONOSCOPY FLX DX W/COLLJ SPEC WHEN PFRMD 09/15/2016 Colonoscopy COLSC FLX W/RMVL OF TUMOR POLYP LESION SNARE TQ 12/30/2019 PAST SURGICAL HISTORY OF Right 2014 repair biceps tendon ROTATOR CUFF REPAIR Left 04/18/2013 Family History FAMILY HISTORY Problem Relation Age of Onset Diabetes Mother Emphysema Father Asbestosis Diabetes Brother Asthma Brother Patient Allergies ALLERGIES Allergen Reactions Ozempic [Semaglutid* Diarrhea Keflex [Cephalexin] Other: See Comments Joint Pain Current Medications Current Outpatient Medications on File Prior to Visit Medication Sig tirzepatide (MOUNJARO) 15 mg/0.5 mL pen injector Inject 15 mg subcutaneously one time a week. metFORMIN ER (GLUCOPHAGE XR) 500 mg 24 hr tablet Take 1 tablet by mouth two times a day with meals. Lancets Test blood sugar(s) 3 times daily. Dx: Type 2 DM - Controlled E11.9 Insulin: Yes blood sugar diagnostic (FREESTYLE LITE STRIPS) test strip Test blood sugar(s) 3 times daily. Dx: Type 2 DM - Controlled E11.9. Insulin: Yes. Lancing Device with Lancets Use with blood glucose test three times a day. Insulin Dep? Yes atorvastatin (LIPITOR) 40 mg tablet Take 1 tablet by mouth once daily. folic acid 1 mg tablet Take 1 tablet by mouth once daily. metoprolol tartrate, short acting, (LOPRESSOR) 50 mg tablet Take 1 tablet by mouth every 12 hours. LISINOPRIL ORAL Take 10 mg by mouth. Blood-Glucose Meter (TRUE METRIX AIR GLUCOSE METER) Test blood sugar(s) 3 times daily. Dx: Type 2 DM - Controlled E11.9 Insulin: Yes Blood Pressure Monitor CHECK vital signs daily or as needed aspirin 81 mg chewable tablet Take 1 tablet by mouth once daily. Take one ASPIRIN daily for life. acetaminophen (TYLENOL) 500 mg tablet Take 2 tablets by mouth four times daily. (Patient taking differently: Take 1,000 mg by mouth two times a day.) No current facility-administered medications on file prior to visit. Social History Social History Tobacco Use Smoking status: Former Current packs/day: 0.00 Types: Cigarettes Quit date: 07/29/2010 Years since quittin.8 Smokeless tobacco: Never Tobacco comments: years Vaping Use Vaping status: Never Used Substance Use Topics Alcohol use: Yes Comment: rarely Drug use: No EXAM: BP 140/80 Pulse 78 Resp 16 Wt 106 kg (233 lb 11 oz) BMI 34.01 kg/m? General Appearance: Well appearing, alert, in no acute distress, well-hydrated, well (more content not included)...[facility]02-04-2025 Instructions* Patient Instructions* Forrest Mejia APRN.SUPPORT SERVICE TECH - 05/20/2024 8:57 AM EST Images from the original note were not included. [facility] REMINDER TO HAVE LABS DRAWN PATIENT PREOPERATIVE INSTRUCTIONS Vickie Luna MD has scheduled you for your procedure at this surgery center: [facility]: [phone] -- [address] [address]. Please read below carefully for your personalized instructions. Dietary Restrictions: - No solid food after midnight. - You may have 12 ounces of clear liquids (water, clear juices such as apple juice or gatorade, carbonated beverages, clear tea, black coffee, jello) until 2 hours before scheduled arrival at facility. Medications: Unless instructed differently below, stay on all of your medications until your surgery. If you start any new medications after today's visit, please contact your surgeon. Pre-Surgery Med Instructions Medication Instructions tirzepatide (MOUNJARO) 15 mg/0.5 mL pen injector Hold 1 week prior to surgery, last dose to be taken on 05/18/24 metFORMIN ER (GLUCOPHAGE XR) 500 mg 24 hr tablet Do not take the day of surgery atorvastatin (LIPITOR) 40 mg tablet Take the day of surgery with a small sip of water folic acid 1 mg tablet Do not take the day of surgery metoprolol tartrate, short acting, (LOPRESSOR) 50 mg tablet Take the day of surgery with a small sip of water LISINOPRIL ORAL Take the day of surgery with a small sip of water aspirin 81 mg chewable tablet Stop 7 days before surgery acetaminophen (TYLENOL) 500 mg tablet Take the day of surgery with a small sip of water If you take any medications for erectile dysfunction-Cialis (Tadalafil), Levitra, Staxyn (Vardenafil) Viagra (Sildenenafil please do not take these for 48 hours before surgery. If you start any new medications after today's visit, please contact the surgeon's office. If you are currently using a sxuw-can-ditq injectable or oral medication for diabetes or weight loss such as Dulaglutide (Trulicity), Exenatide (Byetta, Bydureon), Liraglutide (Victoza, Saxenda), Semaglutide (Ozempic, Wegovy, Rybelsus), or Tirzepatide (Mounjaro), the medicine should be stopped at least 7 days before surgery. These medicines can cause food to remain in your stomach for a very longtime and increase the risks from surgery and anesthesia. Not stopping the medication for a long enough time may result in your surgery being rescheduled. Blood Thinning Medications: - Stop NSAIDS (Ibuprofen, Advil, Aleve, Motrin, Celebrex, Mobic, etc.) 7 days before surgery, as directed by your surgeon. - Stop Aspirin 7 days before surgery, as directed by your surgeon. - Stop ALL herbal and dietary supplements 14 days before surgery. - You may take Tylenol (Acetaminophen) or any of your pain medications that do not contain aspirin or NSAIDS as needed. Important Reminders: - Candy, mints, and tobacco products are NOT permitted the morning of surgery. - Hearing aids, dentures and glasses may be worn the morning of surgery. - NO jewelry, body piercings, makeup, hairpins or contacts are to be worn the day of surgery. If you develop symptoms such as a fever, cold, or flu, or have other changes to your health within TWO DAYS of scheduled surgery or the morning of surgery, please contact the surgery center above. Personal Belongings: -Please have photo ID and insurance cards. -If you do not have a copy of advance directives on file with us, please bring a copy with you on the day of surgery. - Leave ALL valuables and money at home or with family members. - Please bring high-quality footwear, such as sneakers, to the hospital for ambulating post-surgery. For Outpatient Procedures: - YOU MUST HAVE A RESPONSIBLE PRESENTATION DESIGNER TAKE YOU HOME. A OPERATING ROOM ASSISTANT OR LEAD NURSE CANNOT BE MADE A RESPONSIBLE PRESENTATION DESIGNER. - We recommend that a responsible person stays with you overnight to take care of you. - You cannot stay in a hotel alone after outpatient surgery. You will not be permitted to have yoursurgery, if you do not have someone to take care of you. Arrival Time for Surgery: - The Surgery Center or hospital where you are having surgery will call the afternoon before surgery (or Sunday for Sunday surgery) with a scheduled arrival time. - If you have not heard by 4 pm, please contact the surgery center above. Please be aware that emergency situations arise, which may delay or change your surgical time. If this happens, we will notify you as soon as possible and regret any inconvenience. If you already have an Advance Directive, please fax a copy to [phone] or email to for it to be added to your chart. If you do not have an Advance Directive, you can find the appropriate form and more information at [email or web address]. We recommend that youcomplete the Advance Directive form found on the website and bring it with you the day of your surgery. It can be witnessed and scanned into your chart that day. Forrest Mejia APRN.CNP documented in [facility] History and physical note * Forrest Mejia APRN.CNP - 05/20/2024 8:30 AM EST Images from the original note were not included. [facility] HISTORY AND PHYSICAL EXAMINATION SERVICE DATE: 05/20/2024 SERVICE TIME: 8:20 AM This is a virtual visit using Virtual Visit (Audio/Visual)I have discussed the nature of this visit with the patient which will occur via Distance Health (Phone, Virtual Visit) and he agrees to proceed with this interaction. It required patient-provider interaction for the medical decision makingas documented below. I have communicated my name and active licensure. The patient's identity and physical location wereverified at the time of this visit. Either the patient or their legal employment representative has been informed of the risks and benefits of and alternatives to treatment through a remote evaluation and consents to proceed with the evaluation remotely. 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 ECHO showed moderate , EF 55% Aortic valve stenosis 12/24/2023 ECHO showed moderate , EF 55% History of prostate cancer Feliz Activity Status Index: METS: Walk indoors, such as around the house (1.75 METs) Do light work around the house, such as dusting or washing dishes (2.70 METs) Take care of self; that is eating, dressing, bathing, using the toilet (2.75 METs) Walk a block or two on level ground (2.75 METs) Do moderate work around the house, such as vacuuming, sweeping floors, or carrying in groceries (3.50 METs) Do yardwork, such as raking leaves, weeding, or pushing a power mower (4.50 METs) Climb a flight of stairs or walk up a hill (5.50 METs) Do heavy work around the house, such as scrubbing floors, lifting or moving heavy furniture (8.00 METs) DASI Score: 31.45 (Reports exercise 3 times per week) Patient confirms chest pain or undue shortness of breath with the above physical activity. Clinical Frailty Scale: 3. Well, with treated comorbid disease STOP-Bang Score: Snores loudly BMI greater than 35 kg/m^2 Patient over 50 years old Has a large neck Male patient Denies feeling tired, fatigued, or sleepy during the daytime Has not been observed to stop breathing or choking/gasping during sleep Denies having high blood pressure STOP-Bang Score: 5 [id number] Score: Age: 65-74 Sex: male CHF history: Yes Hypertension history: Yes Stroke/TIA/thromboembolism history: No Vascular disease history: No Diabetes history: Yes [id number] Score: 4 ARISCAT Score: Age: 51-80 Preoperative SpO2: <=90% Respiratory infection in the last month: No Preoperative anemia: Yes Duration of surgery: 2-3 hrs Emergency procedure: No ARISCAT Score: ANESTHESIA FINDINGS: Intubation History: No history of difficult intubation. No abnormal airway history Significant Anesthesia Considerations: Airway History: No history of difficult airway No abnormal airway history I - PHYSICAL EVALUATION AIRWAY Patient intubated: No. Tracheostomy tube not present Mallampati: II. TM distance: >3 FB. Neck ROM: full ROM without neurological symptoms. Mouth opening: adequate. Short neck: no. Thick neck: no Vides present: no Lip Bite Test: I DENTAL Dental findings: teeth intact. Additional comments: Crowns upper. II - ANESTHESIA PLAN Anesthetic Plan: other Anesthetic plan additional comments: *PACC/TCI - anesthesia choice. Beta Babs Monitoring Plan Post Procedure Analgesic Plan Prepared for Surgery: CONSULTS: Planned Anesthetic: other anesthesia choice The Following Tests/Procedures Have Been Initiated: No orders of the defined types were placed in this encounter. REASON FOR VISIT: Reginald Vaughn is a 73 year old male who is scheduled for Procedure(s) with comments: LAPAROSCOPIC HERNIA REPAIR INCISIONAL INITIAL REDUCIBLE W/MESH 3cm-10cm (N/A) - LAPAROSCOPIC HERNIAREPAIR INCISIONAL INITIAL REDUCIBLE W/MESH 3cm-10cm at the request of Dr. Luna, Vickie Tristan MD for consultation. My final recommendation will be communicated back to the requesting physician by wayof shared medical record or letter. Subjective The patient has the following: COVID-19 Immunization Status Covid-19 Vaccine (Series Information) Completed 03/24/2024 Imm Admin: COVID-19 vaccine, age 12+ yr (PFIZER-BIONTECH COMIRNATY) 02/02/2023 Imm Admin: COVID-19 vaccine, age 12+ yr (MODERNA) 03/22/2022 Imm Admin: COVID-19 vaccine, age 12+ yr, bivalent (MODERNA) Only the first 3 history entries have been loaded, but more history exists. CHIEF COMPLAINT: Pre-Op Visit HPI: 73 year old male who has abdominal wall hernia seen for PACC. He endorses having an incision hernia s/p prostate surgery. Scheduled for LAPAROSCOPIC HERNIA REPAIR INCISIONAL INITIAL REDUCIBLE W/MESH 3cm-10cm (N/A) - LAPAROSCOPIC HERNIA REPAIR INCISIONAL INITIAL REDUCIBLE W/MESH on 06/02/24. Denies any fever, chills, nausea, vomiting, SOB, dizziness, lightheadedness, palpitations, syncope, chest pain or abdominal pain. He has elected to proceed with the surgical procedure. REVIEW OF SYSTEMS: General: No weight loss, malaise or fevers. Negative for: malaise and fever. Neurological: No history of TIA's, stroke, DOPE SPRAYER tumor, impaired sensorium, hemiplegia, paraplegia orquadraplegia. No neurological symptoms or problems. Negative for: impaired sensorium, seizures, TIA and strokes. Respiratory: Positive for: tobacco use (+ Former smoker on and off x 10 years. Quit 2010). Negative for: asthma, bronchitis, COPD, current cough, dyspnea, home oxygen, orthopnea, pneumonia within 6 weeks, URI < 2 weeks and obstructive sleep apnea. Cardiovascular: Positive for: CAD, CHF, hyperlipidemia, hypertension and murmur/valvular heart disease (ECHO 12/24/23Moderate ) Patient's last office visit The following tests and/or procedures were performed: cardiac stress test (06/23/2021) and echocardiogram (12/24/2023 EF 55%). The following tests and/or procedures were not performed: cardiac stents. Negative for: AICD/PPM, angina, anticoagulation therapy, arrhythmia, atrial fibrillation, chest pain, congenital heart defect, DVT/PE and recent IL. GI: See HPI. Negative for: abdominal pain, dysphagia, diverticulitis, GERD, heartburn, hepatitis, irritable bowel syndrome, inflammatory bowel disease, liver disease, nausea, pancreatitis, vomiting and ETOH >2drinks/day. : No history of dysuria, frequency or incontinence, stones or chronic kidney disease. No difficulty urinating, nocturia > 1 time per night or hematuria. Negative for: dysuria, flank pain, frequent urination, hematuria, nocturia >1 time per night andurgency. Endocrine: Positive for: diabetes mellitus. Negative for: hyperthyroidism, hypothyroidism and hyperparathyroidism. Hematology: No history of bleeding or clotting disorder. Patient is not taking anti-coagulation or platelet medications. No history of hematological symptoms or problems. Negative for: anemia. 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 Negative for: anxiety, bipolar disorder, depression, drug dependency and Marijuana Use. Musculoskeletal: Negative for joint pain or swelling, back pain or muscle pain. Negative for: back pain, joint pain, swelling and rheumatoid arthritis. Skin: Negative for lesions, rash and itching. Negative for: lesions, itching and rash. Implanted Devices: No implanted devices. PAST MEDICAL HISTORY Diagnosis Date Arthritis Bladder stones BPH (benign prostatic hyperplasia) CAD (coronary artery disease) Cancer (HCC) skin ca History of colon polyps 07/24/2013 History of prostate cancer 05/20/2024 Mixed hyperlipidemia Prostate cancer (HCC) Type 2 diabetes mellitus, without long-term current use of insulin (HCC) 06/20/2021 PAST SURGICAL HISTORY Procedure Laterality Date ARTHROSCOPY KNEE DIAGNOSTIC W/WO SYNOVIAL BX SPX Right 1989 Meniscal tear CABG (4) VEIN GRAFTS & ARTERIAL GRAFT(S) 06/08/2021 COLONOSCOPY FLX DX W/COLLJ SPEC WHEN PFRMD 07/24/2013 Colonoscopy COLONOSCOPY FLX DX W/COLLJ SPEC WHEN PFRMD 09/15/2016 Colonoscopy COLSC FLX W/RMVL OF TUMOR POLYP LESION SNARE TQ 12/30/2019 PAST SURGICAL HISTORY OF Right 2015 repair biceps tendon ROTATOR CUFF REPAIR Left 04/18/2013 FAMILY HISTORY Problem Relation Age of Onset Diabetes Mother Emphysema Father Asbestosis Diabetes Brother Asthma Brother Social History Tobacco Use Smoking status: Former Current packs/day: 0.00 Types: Cigarettes Quit date: 07/29/2010 Years since quittin.8 Smokeless tobacco: Never Tobacco comments: years Vaping Use Vaping status: Never Used Substance Use Topics Alcohol use: Yes Comment: rarely Drug use: No Prior to Admission medications as of 03/24/24 1226 Medication Sig Last Dose Taking tirzepatide (MOUNJARO) 15 mg/0.5 mL pen injector Inject 15 mg subcutaneously one time a week. metFORMIN ER (GLUCOPHAGE XR) 500 mg 24 hr tablet Take 1 tablet by mouth two times a day with meals. Lancets Test blood sugar(s) 3 times daily. Dx: Type 2 DM - Controlled E11.9 Insulin: Yes blood sugar diagnostic (FREESTYLE LITE STRIPS) test strip Test blood sugar(s) 3 times daily. Dx: Type 2 DM - Controlled E11.9. Insulin: Yes. Lancing Device with Lancets Use with blood glucose test three times a day. Insulin Dep? Yes atorvastatin (LIPITOR) 40 mg tablet Take 1 tablet by mouth once daily. folic acid 1 mg tablet Take 1 tablet by mouth once daily. metoprolol tartrate, short acting, (LOPRESSOR) 50 mg tablet Take 1 tablet by mouth every 12 hours. LISINOPRIL ORAL Take 10 mg by mouth. Blood-Glucose Meter (TRUE METRIX AIR GLUCOSE METER) Test blood sugar(s) 3 times daily. Dx: Type 2 DM - Controlled E11.9 Insulin: Yes Blood Pressure Monitor CHECK vital signs daily or as needed aspirin 81 mg chewable tablet Take 1 tablet by mouth once daily. Take one ASPIRIN daily for life. acetaminophen (TYLENOL) 500 mg tablet Take 2 tablets by mouth four times daily. Patient taking differently: Take 1,000 mg by mouth two times a day. Medication Comments documented by Analilia Ram MA on 06/09/2022 at 0841. Uses [employer] [facility]. ALLERGIES Allergen Reactions Ozempic [Semaglutid* Diarrhea Keflex [Cephalexin] Other: See Comments Joint Pain Objective PHYSICAL EXAM: General: alert and oriented and healthy appearance. Skin: normal color, no rash or lesions. HEENT: Normocephalic, atraumatic No notable cervical lymph nodes . Cardiovascular: Self palpated radial pulse, regular when counted aloud by patient . Respiratory: Equal chest rise BL, no audible wheezing No respiratory distress. Abdomen: Extremities: no deformity, no edema or tenderness, no joint swelling or clubbing. Neurological: normal cognition and motor skills. PAIN ASSESSMENT: VITALS: There were no vitals taken for this visit. Diagnostic tests reviewed for today's visit: Lab Value Units Date High Low HB No results within date range. HCT No results within date range. WBC No results within date range. PLT No results within date range. NA 141 mmol/L 05/19/2024 144 136 K 4.3 mmol/L 05/19/2024 5.1 3.7 GLUC 96 mg/dL 05/19/2024 99 74 BUN 15 mg/dL 05/19/2024 24 9 CREAT 0.75 mg/dL 05/19/2024 1.22 0.73 PTSEC No results within date range. INR No results within date range. APTT No results within date range. ALT 15 U/L 05/19/2024 54 10 AST 18 U/L 05/19/2024 40 14 TBILI 0.5 mg/dL 05/19/2024 1.3 0.2 TSH No results within date range. Lab Value Units Date High Low HCGQT No results within date range. UHCG No results within date range. HCG, BODY* No results within date range. Lab Value Units Date High Low ABORHD No results within date range. ABSCREEN No results within date range. Hemoglobin A1C (%) Date Value 05/19/2024 4.7 11/16/2023 4.7 05/21/2023 4.9 06/06/2021 6.3 06/22/2020 5.8 05/24/2017 5.8 07/31/2016 5.7 08/26/2013 5.6 HGB A1C (no units) Date Value 05/01/2022 5.4 No results found for this or any previous visit (from the past 8760 hour(s)). Recent Results (from the past 39682 hour(s)) ECHO Collection Time: 06/07/21 9:45 AM Impression CONCLUSIONS: - Technically difficult exam due to body habitus. - Exam indication: Initial evaluation valvular heart disease - The left ventricle is normal in size. There is moderate left ventricular hypertrophy. Left ventricular systolic function is normal. EF = 55 5% (visual est.) Grade II left ventricular diastolic dysfunction. - The right ventricle is normal in size. Right ventricular systolic function is normal. - There is moderate aortic valve stenosis. AV area is 1.34 cm (0.57 cm /m ) by continuity, VTI. The peak gradient is 40 mmHg, the mean gradient is 23 mmHg and the dimensionless valve index is 0.41. - The patient has not had a prior CC echocardiographic exam for comparison. * * * Final * * * 12/2023 ECHO Instructions Given to Patient: Instructions located in the after visit summary. Patient given verbal and written preop instructions and voices comprehension and compliance. Patient aware labs need to be drawn and EKG. SIGNATURE: Forrest Mejia APRN.CNP PATIENT NAME: Reginald Vaughn DATE: May 20, 2024 TIME: 9:00 AM PAGER/CONTACT #: [facility]02-04-2025 History and physical note* Forrest Mejia APRN.CNP - 05/20/2024 8:30 AM EST Images from the original note were not included. [facility] HISTORY AND PHYSICAL EXAMINATION SERVICE DATE: 05/20/2024 SERVICE TIME: 8:20 AM This is a virtual visit using Virtual Visit (Audio/Visual)I have discussed the nature of this visit with the patient which will occur via [facility] (Phone, Virtual Visit) and he agrees to proceed with this interaction. It required patient-provider interaction for the medical decision makingas documented below. I have communicated my name and active licensure. The patient's identity and physical location wereverified at the time of this visit. Either the patient or their legal employment representative has been informed of the risks and benefits of and alternatives to treatment through a remote evaluation and consents to proceed with the evaluation remotely. 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 ECHO showed moderate , EF 55% Aortic valve stenosis 12/24/2023 ECHO showed moderate , EF 55% History of prostate cancer Feliz Activity Status Index: METS: Walk indoors, such as around the house (1.75 METs) Do light work around the house, such as dusting or washing dishes (2.70 METs) Take care of self; that is eating, dressing, bathing, using the toilet (2.75 METs) Walk a block or two on level ground (2.75 METs) Do moderate work around the house, such as vacuuming, sweeping floors, or carrying in groceries (3.50 METs) Do yardwork, such as raking leaves, weeding, or pushing a power mower (4.50 METs) Climb a flight of stairs or walk up a hill (5.50 METs) Do heavy work around the house, such as scrubbing floors, lifting or moving heavy furniture (8.00 METs) DASI Score: 31.45 (Reports exercise 3 times per week) Patient confirms chest pain or undue shortness of breath with the above physical activity. Clinical Frailty Scale: 3. Well, with treated comorbid disease STOP-Bang Score: Snores loudly BMI greater than 35 kg/m^2 Patient over 50 years old Has a large neck Male patient Denies feeling tired, fatigued, or sleepy during the daytime Has not been observed to stop breathing or choking/gasping during sleep Denies having high blood pressure STOP-Bang Score: 5 [id number] Score: Age: 65-74 Sex: male CHF history: Yes Hypertension history: Yes Stroke/TIA/thromboembolism history: No Vascular disease history: No Diabetes history: Yes [id number] Score: 4 ARISCAT Score: Age: 51-80 Preoperative SpO2: <=90% Respiratory infection in the last month: No Preoperative anemia: Yes Duration of surgery: 2-3 hrs Emergency procedure: No ARISCAT Score: ANESTHESIA FINDINGS: Intubation History: No history of difficult intubation. No abnormal airway history Significant Anesthesia Considerations: Airway History: No history of difficult airway No abnormal airway history I - PHYSICAL EVALUATION AIRWAY Patient intubated: No. Tracheostomy tube not present Mallampati: II. TM distance: >3 FB. Neck ROM: full ROM without neurological symptoms. Mouth opening: adequate. Short neck: no. Thick neck: no Vides present: no Lip Bite Test: I DENTAL Dental findings: teeth intact. Additional comments: Crowns upper. II - ANESTHESIA PLAN Anesthetic Plan: other Anesthetic plan additional comments: *PACC/TCI - anesthesia choice. Beta Babs Monitoring Plan Post Procedure Analgesic Plan Prepared for Surgery: CONSULTS: Planned Anesthetic: other anesthesia choice The Following Tests/Procedures Have Been Initiated: No orders of the defined types were placed in this encounter. REASON FOR VISIT: Reginald Vaughn is a 73 year old male who is scheduled for Procedure(s) with comments: LAPAROSCOPIC HERNIA REPAIR INCISIONAL INITIAL REDUCIBLE W/MESH 3cm-10cm (N/A) - LAPAROSCOPIC HERNIAREPAIR INCISIONAL INITIAL REDUCIBLE W/MESH 3cm-10cm at the request of Vickie Arroyo MD for consultation. My final recommendation will be communicated back to the requesting physician by wayof shared medical record or letter. Subjective The patient has the following: COVID-19 Immunization Status Covid-19 Vaccine (Series Information) Completed 03/24/2024 Imm Admin: COVID-19 vaccine, age 12+ yr (PFIZER-BIONTECH COMIRNATY) 02/02/2023 Imm Admin: COVID-19 vaccine, age 12+ yr (MODERNA) 03/22/2022 Imm Admin: COVID-19 vaccine, age 12+ yr, bivalent (MODERNA) Only the first 3 history entries have been loaded, but more history exists. CHIEF COMPLAINT: Pre-Op Visit HPI: 73 year old male who has abdominal wall hernia seen for PACC. He endorses having an incision hernia s/p prostate surgery. Scheduled for LAPAROSCOPIC HERNIA REPAIR INCISIONAL INITIAL REDUCIBLE W/MESH 3cm-10cm (N/A) - LAPAROSCOPIC HERNIA REPAIR INCISIONAL INITIAL REDUCIBLE W/MESH on 06/02/24. Denies any fever, chills, nausea, vomiting, SOB, dizziness, lightheadedness, palpitations, syncope, chest pain or abdominal pain. He has elected to proceed with the surgical procedure. REVIEW OF SYSTEMS: General: No weight loss, malaise or fevers. Negative for: malaise and fever. Neurological: No history of TIA's, stroke, DOPE SPRAYER tumor, impaired sensorium, hemiplegia, paraplegia orquadraplegia. No neurological symptoms or problems. Negative for: impaired sensorium, seizures, TIA and strokes. Respiratory: Positive for: tobacco use (+ Former smoker on and off x 10 years. Quit 2010). Negative for: asthma, bronchitis, COPD, current cough, dyspnea, home oxygen, orthopnea, pneumonia within 6 weeks, URI < 2 weeks and obstructive sleep apnea. Cardiovascular: Positive for: CAD, CHF, hyperlipidemia, hypertension and murmur/valvular heart disease (ECHO 12/24/23Moderate ) Patient's last office visit The following tests and/or procedures were performed: cardiac stress test (06/23/2021) and echocardiogram (12/24/2023 EF 55%). The following tests and/or procedures were not performed: cardiac stents. Negative for: AICD/PPM, angina, anticoagulation therapy, arrhythmia, atrial fibrillation, chest pain, congenital heart defect, DVT/PE and recent IL. GI: See HPI. Negative for: abdominal pain, dysphagia, diverticulitis, GERD, heartburn, hepatitis, irritable bowel syndrome, inflammatory bowel disease, liver disease, nausea, pancreatitis, vomiting and ETOH >2drinks/day. : No history of dysuria, frequency or incontinence, stones or chronic kidney disease. No difficulty urinating, nocturia > 1 time per night or hematuria. Negative for: dysuria, flank pain, frequent urination, hematuria, nocturia >1 time per night andurgency. Endocrine: Positive for: diabetes mellitus. Negative for: hyperthyroidism, hypothyroidism and hyperparathyroidism. Hematology: No history of bleeding or clotting disorder. Patient is not taking anti-coagulation or platelet medications. No history of hematological symptoms or problems. Negative for: anemia. 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 Negative for: anxiety, bipolar disorder, depression, drug dependency and Marijuana Use. Musculoskeletal: Negative for joint pain or swelling, back pain or muscle pain. Negative for: back pain, joint pain, swelling and rheumatoid arthritis. Skin: Negative for lesions, rash and itching. Negative for: lesions, itching and rash. Implanted Devices: No implanted devices. PAST MEDICAL HISTORY Diagnosis Date Arthritis Bladder stones BPH (benign prostatic hyperplasia) CAD (coronary artery disease) Cancer (HCC) skin ca History of colon polyps 07/24/2013 History of prostate cancer 05/20/2024 Mixed hyperlipidemia Prostate cancer (HCC) Type 2 diabetes mellitus, without long-term current use of insulin (HCC) 06/20/2021 PAST SURGICAL HISTORY Procedure Laterality Date ARTHROSCOPY KNEE DIAGNOSTIC W/WO SYNOVIAL BX SPX Right 1989 Meniscal tear CABG (4) VEIN GRAFTS & ARTERIAL GRAFT(S) 06/08/2021 COLONOSCOPY FLX DX W/COLLJ SPEC WHEN PFRMD 07/24/2013 Colonoscopy COLONOSCOPY FLX DX W/COLLJ SPEC WHEN PFRMD 09/15/2016 Colonoscopy COLSC FLX W/RMVL OF TUMOR POLYP LESION SNARE TQ 12/30/2019 PAST SURGICAL HISTORY OF Right 2015 repair biceps tendon ROTATOR CUFF REPAIR Left 04/18/2013 FAMILY HISTORY Problem Relation Age of Onset Diabetes Mother Emphysema Father Asbestosis Diabetes Brother Asthma Brother Social History Tobacco Use Smoking status: Former Current packs/day: 0.00 Types: Cigarettes Quit date: 07/29/2010 Years since quittin.8 Smokeless tobacco: Never Tobacco comments: years Vaping Use Vaping status: Never Used Substance Use Topics Alcohol use: Yes Comment: rarely Drug use: No Prior to Admission medications as of 03/24/24 1226 Medication Sig Last Dose Taking tirzepatide (MOUNJARO) 15 mg/0.5 mL pen injector Inject 15 mg subcutaneously one time a week. metFORMIN ER (GLUCOPHAGE XR) 500 mg 24 hr tablet Take 1 tablet by mouth two times a day with meals. Lancets Test blood sugar(s) 3 times daily. Dx: Type 2 DM - Controlled E11.9 Insulin: Yes blood sugar diagnostic (FREESTYLE LITE STRIPS) test strip Test blood sugar(s) 3 times daily. Dx: Type 2 DM - Controlled E11.9. Insulin: Yes. Lancing Device with Lancets Use with blood glucose test three times a day. Insulin Dep? Yes atorvastatin (LIPITOR) 40 mg tablet Take 1 tablet by mouth once daily. folic acid 1 mg tablet Take 1 tablet by mouth once daily. metoprolol tartrate, short acting, (LOPRESSOR) 50 mg tablet Take 1 tablet by mouth every 12 hours. LISINOPRIL ORAL Take 10 mg by mouth. Blood-Glucose Meter (TRUE METRIX AIR GLUCOSE METER) Test blood sugar(s) 3 times daily. Dx: Type 2 DM - Controlled E11.9 Insulin: Yes Blood Pressure Monitor CHECK vital signs daily or as needed aspirin 81 mg chewable tablet Take 1 tablet by mouth once daily. Take one ASPIRIN daily for life. acetaminophen (TYLENOL) 500 mg tablet Take 2 tablets by mouth four times daily. Patient taking differently: Take 1,000 mg by mouth two times a day. Medication Comments documented by Analilia Ram MA on 06/09/2022 at 0841. Uses [facility]. ALLERGIES Allergen Reactions Ozempic [Semaglutid* Diarrhea Keflex [Cephalexin] Other: See Comments Joint Pain Objective PHYSICAL EXAM: General: alert and oriented and healthy appearance. Skin: normal color, no rash or lesions. HEENT: Normocephalic, atraumatic No notable cervical lymph nodes . Cardiovascular: Self palpated radial pulse, regular when counted aloud by patient . Respiratory: Equal chest rise BL, no audible wheezing No respiratory distress. Abdomen: Extremities: no deformity, no edema or tenderness, no joint swelling or clubbing. Neurological: normal cognition and motor skills. PAIN ASSESSMENT: VITALS: There were no vitals taken for this visit. Diagnostic tests reviewed for today's visit: Lab Value Units Date High Low HB No results within date range. HCT No results within date range. WBC No results within date range. PLT No results within date range. NA 141 mmol/L 05/19/2024 144 136 K 4.3 mmol/L 05/19/2024 5.1 3.7 GLUC 96 mg/dL 05/19/2024 99 74 BUN 15 mg/dL 05/19/2024 24 9 CREAT 0.75 mg/dL 05/19/2024 1.22 0.73 PTSEC No results within date range. INR No results within date range. APTT No results within date range. ALT 15 U/L 05/19/2024 54 10 AST 18 U/L 05/19/2024 40 14 TBILI 0.5 mg/dL 05/19/2024 1.3 0.2 TSH No results within date range. Lab Value Units Date High Low HCGQT No results within date range. UHCG No results within date range. HCG, BODY* No results within date range. Lab Value Units Date High Low ABORHD No results within date range. ABSCREEN No results within date range. Hemoglobin A1C (%) Date Value 05/19/2024 4.7 11/16/2023 4.7 05/21/2023 4.9 06/06/2021 6.3 06/22/2020 5.8 05/24/2017 5.8 07/31/2016 5.7 08/26/2013 5.6 HGB A1C (no units) Date Value 05/01/2022 5.4 No results found for this or any previous visit (from the past 8760 hour(s)). Recent Results (from the past 77787 hour(s)) ECHO Collection Time: 06/07/21 9:45 AM Impression CONCLUSIONS: - Technically difficult exam due to body habitus. - Exam indication: Initial evaluation valvular heart disease - The left ventricle is normal in size. There is moderate left ventricular hypertrophy. Left ventricular systolic function is normal. EF = 55 5% (visual est.) Grade II left ventricular diastolic dysfunction. - The right ventricle is normal in size. Right ventricular systolic function is normal. - There is moderate aortic valve stenosis. AV area is 1.34 cm (0.57 cm /m ) by continuity, VTI. The peak gradient is 40 mmHg, the mean gradient is 23 mmHg and the dimensionless valve index is 0.41. - The patient has not had a prior CC echocardiographic exam for comparison. * * * Final * * * 12/2023 ECHO Instructions Given to Patient: Instructions located in the after visit summary. Patient given verbal and written preop instructions and voices comprehension and compliance. Patient aware labs need to be drawn and EKG. SIGNATURE: Forrest Mejia APRN.CNP PATIENT NAME: Reginald Vaughn DATE: May 20, 2024 TIME: 9:00 AM PAGER/CONTACT #: [facility] Tele[facility] encounter Note * Telephone Encounter - Hoa Mendoza - 05/02/2024 10:02 AM EST Ok to schedule surgery? Spoke with patient & told him I would call him back. [facility]01-17-2025 Miscellaneous Notes* Telephone Encounter - Hoa Mendoza - 05/02/2024 10:02 AM EST Ok to schedule surgery? Spoke with patient & told him I would call him back. [facility]12[facility] History of Present illness Narrative* Radhika Kerr RT(Isaura) - 04/07/2024 3:20 PM EST Radiology Service Progress Note PATIENT NAME: Reginald Vaughn DATE OF SERVICE: April 07, 2024 TIME: 3:56 PM PATIENT IDENTITY VERIFICATION COMPLETED USING TWO (2) IDENTIFIERS: Name and Date of confirmedby patient verbally. FALL SCREENING: Has the patient had 2 falls in the last year or 1 fall with injury or currently using an Ambulatory Assistive Device (Walker, Cane, Wheelchair, Crutches, etc.)? No PATIENT GENDER DATA: Male PATIENT RELEVANT IMPLANT DATA REVIEWED: Yes PATIENT PRESENTS WITH AN IMPLANTABLE OR ATTACHED MECHANICAL MAINTENANCE TECHNICIAN: No RADIOLOGY DEPARTMENT: CT; Exam(s) Completed: Abdomen/Pelvis PERIPHERAL IV DATA: Not applicable SIGNED BY: RT Rogelio(Isaura) April 07, 2024 3:56 PM documented in this encounterMi[facility]12-[facility]-2024 NoteHNO ID: [id number] Author: RADHIKA KERR RT(R) Service: ? Author Type: Guest Laundry Attendant Type: Progress Notes Filed: 04/07/2024 15:56 Note Text: Radiology Service Progress Note PATIENT NAME: Reginald Vaughn DATE OF SERVICE: April 07, 2024 TIME: 3:56 PM PATIENT IDENTITY VERIFICATION COMPLETED USING TWO (2) IDENTIFIERS: Name and Date of confirmed by patient verbally. FALL SCREENING: Has the patient had 2 falls in the last year or 1 fall with injury or currently using an Ambulatory Assistive Device (Walker, Cane, Wheelchair, Crutches, etc.)? No PATIENT GENDER DATA: Male PATIENT RELEVANT IMPLANT DATA REVIEWED: Yes PATIENT PRESENTS WITH AN IMPLANTABLE OR ATTACHED MECHANICAL MAINTENANCE TECHNICIAN: No RADIOLOGY DEPARTMENT: CT; Exam(s) Completed: Abdomen/Pelvis PERIPHERAL IV DATA: Not applicable SIGNED BY: RT Rogelio(R) April 07, 2024 3:56 [facility]12-19-2024 NoteHNO ID: [id number] Author: VICKIE LUNA MD Service: ? Author Type: Physician Type: Progress Notes Filed: 04/03/2024 19:13 Note Text: HISTORY AND PHYSICAL Reginald Vaughn 1950 REFERRING PHYSICIAN: Dixon Valadez MD CHIEF COMPLAINT: Consult and Hernia HPI: Reginald is a 73 year old male with a complaint of a bulge and discomfort in his prior supraumbilical incision. The patient first noticed a hernia this summer which was smaller but he at the time noted some discomfort in this area with lifting, straining, and coughing. The symptoms have increased, over the past few months. He notes the site is much larger than it was before. He notes a chronic dull pain. He states it reduces when he lays back down but pushes back out. He states he has trouble doing exercise due to the discomfort. He notes no changes in his bowel function and no obstructive symptoms. The patient underwent a robotic prostatectomy in 2020. This was followed with radiation. He had a follow-up PET CT scan in 2021 which when reviewing the CAT scan images demonstrated was felt to be a small incisional hernia at the midline robotic port site which is certainly grown over time based on clinical evaluation. The patient was seen by his primary care physician who felt the patient has a hernia. Reginald was referred for evaluation and treatment. The patient is being seen by me today at the request of Dr. Dixon Valadez MD for my opinion and advice regarding increasingly enlarging and symptomatic incisional hernia. PAST MEDICAL HISTORY Diagnosis Date Arthritis Bladder stones BPH (benign prostatic hyperplasia) CAD (coronary artery disease) Cancer (HCC) skin ca History of colon polyps 07/24/2013 Mixed hyperlipidemia Prostate cancer (HCC) Type 2 diabetes mellitus, without long-term current use of insulin (HCC) 06/20/2021 PAST SURGICAL HISTORY Procedure Laterality Date ARTHROSCOPY KNEE DIAGNOSTIC W/WO SYNOVIAL BX SPX Right 1989 Meniscal tear CABG (4) VEIN GRAFTS AND ARTERIAL GRAFT(S) 06/08/2021 COLONOSCOPY FLX DX W/COLLJ SPEC WHEN PFRMD 07/24/2013 Colonoscopy COLONOSCOPY FLX DX W/COLLJ SPEC WHEN PFRMD 09/15/2016 Colonoscopy COLSC FLX W/RMVL OF TUMOR POLYP LESION SNARE TQ 12/30/2019 PAST SURGICAL HISTORY OF Right 2014 repair biceps tendon ROTATOR CUFF REPAIR Left 04/18/2013 Current Outpatient Medications Medication Sig tirzepatide (MOUNJARO) 15 mg/0.5 mL pen injector Inject 15 mg subcutaneously one time a week. metFORMIN ER (GLUCOPHAGE XR) 500 mg 24 hr tablet Take 1 tablet by mouth two times a day with meals. Lancets Test blood sugar(s) 3 times daily. Dx: Type 2 DM - Controlled E11.9 Insulin: Yes blood sugar diagnostic (FREESTYLE LITE STRIPS) test strip Test blood sugar(s) 3 times daily. Dx: Type 2 DM - Controlled E11.9. Insulin: Yes. Lancing Device with Lancets Use with blood glucose test three times a day. Insulin Dep? Yes atorvastatin (LIPITOR) 40 mg tablet Take 1 tablet by mouth once daily. folic acid 1 mg tablet Take 1 tablet by mouth once daily. metoprolol tartrate, short acting, (LOPRESSOR) 50 mg tablet Take 1 tablet by mouth every 12 hours. LISINOPRIL ORAL Take 10 mg by mouth. Blood-Glucose Meter (TRUE METRIX AIR GLUCOSE METER) Test blood sugar(s) 3 times daily. Dx: Type 2 DM - Controlled E11.9 Insulin: Yes Blood Pressure Monitor CHECK vital signs daily or as needed aspirin 81 mg chewable tablet Take 1 tablet by mouth once daily. Take one ASPIRIN daily for life. acetaminophen (TYLENOL) 500 mg tablet Take 2 tablets by mouth four times daily. (Patient taking differently: Take 1,000 mg by mouth two times a day.) No current facility-administered medications for this visit. ALLERGIES: Ozempic [Semaglutide] and Keflex [Cephalexin] PERSONAL HISTORY: Social History Tobacco Use Smoking status: Former Current packs/day: 0.00 Types: Cigarettes Quit date: 07/29/2010 Years since quittin.6 Smokeless tobacco: Never Tobacco comments: years Vaping Use Vaping status: Never Used Substance Use Topics Alcohol use: Yes Comment: rarely Drug use: No FAMILY HISTORY: FAMILY HISTORY Problem Relation Age of Onset Diabetes Mother Emphysema Father Asbestosis Diabetes Brother Asthma Brother REVIEW OF SYMPTOMS: The review of systems data was entered by the nurse and reviewed by me There are no exam notes on file for this visit. PHYSICAL EXAMINATION: General: The patient is 73 year old male, well nourished, well hydrated in no acute distress. The patient is oriented to time, place, and person. VITALS: Blood pressure 152/85, pulse 77, weight 108.4 kg (239 lb), SpO2 98%. Body mass index is 35.29 kg/m?. HEENT: Normal cephalic, ataumatic, pupils are equally round, sclera are anicteric, mucous membranes are moist, oropharynx is clear. Neck has no masses, asymmetry or lymphadenopathy. Thyroid is unremarkable. Respiratory: Clear to auscult (more content not included)...[facility]12-19-2024 History of Present illness Narrative* Vickie Luna MD - 04/03/2024 7:09 PM EST HISTORY AND PHYSICAL Reginald Vaughn 1950 REFERRING PHYSICIAN: Dixon Valadez MD CHIEF COMPLAINT: Consult and Hernia HPI: Reginald is a 73 year old male with a complaint of a bulge and discomfort in his prior supraumbilical incision. The patient first noticed a hernia this summer which was smaller but he at the time noted some discomfort in this area with lifting, straining, and coughing. The symptoms have increased, over the past few months. He notes the site is much larger than it was before. He notes a chronicdull pain. He states it reduces when he lays back down but pushes back out. He states he has trouble doing exercise due to the discomfort. He notes no changes in his bowel function and no obstructivesymptoms. The patient underwent a robotic prostatectomy in 2020. This was followed with radiation. He had a follow-up PET CT scan in 2021 which when reviewing the CAT scan images demonstrated was felt to be a small incisional hernia at the midline robotic port site which is certainly grown over time based onclinical evaluation. The patient was seen by his primary care physician who felt the patient has a hernia. Reginald was referred for evaluation and treatment. The patient is being seen by me today at the request of Dr. Dixon Valadez MD for my opinion and advice regarding increasingly enlarging and symptomatic incisional hernia. PAST MEDICAL HISTORY Diagnosis Date Arthritis Bladder stones BPH (benign prostatic hyperplasia) CAD (coronary artery disease) Cancer (HCC) skin ca History of colon polyps 07/24/2013 Mixed hyperlipidemia Prostate cancer (HCC) Type 2 diabetes mellitus, without long-term current use of insulin (HCC) 06/20/2021 PAST SURGICAL HISTORY Procedure Laterality Date ARTHROSCOPY KNEE DIAGNOSTIC W/WO SYNOVIAL BX SPX Right 1989 Meniscal tear CABG (4) VEIN GRAFTS & ARTERIAL GRAFT(S) 06/08/2021 COLONOSCOPY FLX DX W/COLLJ SPEC WHEN PFRMD 07/24/2013 Colonoscopy COLONOSCOPY FLX DX W/COLLJ SPEC WHEN PFRMD 09/15/2016 Colonoscopy COLSC FLX W/RMVL OF TUMOR POLYP LESION SNARE TQ 12/30/2019 PAST SURGICAL HISTORY OF Right 2015 repair biceps tendon ROTATOR CUFF REPAIR Left 04/18/2013 Current Outpatient Medications Medication Sig tirzepatide (MOUNJARO) 15 mg/0.5 mL pen injector Inject 15 mg subcutaneously one time a week. metFORMIN ER (GLUCOPHAGE XR) 500 mg 24 hr tablet Take 1 tablet by mouth two times a day with meals. Lancets Test blood sugar(s) 3 times daily. Dx: Type 2 DM - Controlled E11.9 Insulin: Yes blood sugar diagnostic (FREESTYLE LITE STRIPS) test strip Test blood sugar(s) 3 times daily. Dx: Type 2 DM - Controlled E11.9. Insulin: Yes. Lancing Device with Lancets Use with blood glucose test three times a day. Insulin Dep? Yes atorvastatin (LIPITOR) 40 mg tablet Take 1 tablet by mouth once daily. folic acid 1 mg tablet Take 1 tablet by mouth once daily. metoprolol tartrate, short acting, (LOPRESSOR) 50 mg tablet Take 1 tablet by mouth every 12 hours. LISINOPRIL ORAL Take 10 mg by mouth. Blood-Glucose Meter (TRUE METRIX AIR GLUCOSE METER) Test blood sugar(s) 3 times daily. Dx: Type 2 DM - Controlled E11.9 Insulin: Yes Blood Pressure Monitor CHECK vital signs daily or as needed aspirin 81 mg chewable tablet Take 1 tablet by mouth once daily. Take one ASPIRIN daily for life. acetaminophen (TYLENOL) 500 mg tablet Take 2 tablets by mouth four times daily. (Patient taking differently: Take 1,000 mg by mouth two times a day.) No current facility-administered medications for this visit. ALLERGIES: Ozempic [Semaglutide] and Keflex [Cephalexin] PERSONAL HISTORY: Social History Tobacco Use Smoking status: Former Current packs/day: 0.00 Types: Cigarettes Quit date: 07/29/2010 Years since quittin.6 Smokeless tobacco: Never Tobacco comments: years Vaping Use Vaping status: Never Used Substance Use Topics Alcohol use: Yes Comment: rarely Drug use: No FAMILY HISTORY: FAMILY HISTORY Problem Relation Age of Onset Diabetes Mother Emphysema Father Asbestosis Diabetes Brother Asthma Brother REVIEW OF SYMPTOMS: The review of systems data was entered by the nurse and reviewed by me There are no exam notes on file for this visit. PHYSICAL EXAMINATION: General: The patient is 73 year old male, well nourished, well hydrated in no acute distress. The patient is oriented to time, place, and person. VITALS: Blood pressure 152/85, pulse 77, weight 108.4 kg (239 lb), SpO2 98%. Body mass index is 35.29 kg/m . HEENT: Normal cephalic, ataumatic, pupils are equally round, sclera are anicteric, mucous membranesare moist, oropharynx is clear. Neck has no masses, asymmetry or lymphadenopathy. Thyroid is unremarkable. Respiratory: Clear to auscultation and percussion. Normal respiratory excursion and pattern. Cardiac: Examination is regular rate and rhythm. Abdominal exam: Soft, nontender, with no palpable masses. No hepatosplenomegaly. A moderate reducible incisional hernia Rectal exam: exam deferred Extremities: no clubbing, cyanosis or edema. No adenopathy. Other: LABORATORY VALUES: As Noted RADIOLOGIC STUDIES: As Noted Assessment IMPRESSION: prior supraumbilical incisional hernia PLAN: Given the patient's history micromanagement a CT scan to determine the true size of the fascial defect or assess for additional fascial defects to breast plan for repair of his hernia. My plan is to perform a incisional hernia repair with mesh. The planned surgical procedure was discussed extensively with the patient. The risks, benefits, anticipated outcomes and possible complications were mentioned. Reginald undersands that all hernia repair surgery has a chance of recurrence and/or chronic post operative pain. My staff has also explained the procedure in understandable terms and the patient was given the option to take printed material concerning the planned procedure. The patient had the opportunity to ask questions concerning the planned procedure. The patient freely consents to the planned procedure. My findings have been communicated to Dr. Dixon Valadez MD via shared medical record. This note will be forwarded to Dr. Dixon Valadez MD. Diagnoses: (K43.9) Abdominal wall hernia Anticipated CPT Code: ? Anticipated Anesthetic: General Patient weight: Blood pressure 152/85, pulse 77, weight 108.4 kg (239 lb), SpO2 98%. BMI: Body massindex is 35.29 kg/m . 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 Vickie Luna MD * Jhony Ma MA - 04/02/2024 4:10 PM EST REVIEW OF SYSTEMS: General: The patient denies fatigue, NOTES weight loss, denies weight gain, denies feeling hot, anddenies feelings of cold. Eyes: The patient denies glaucoma, NOTES eye injury/surgery, does not wear glasses or contacts. Ear/Nose/Throat: The patient denies allergies, denies hayfever, denies ear infections, and denies bloody noses. Cardiovascular: The patient denies chest pain, denies heart disease, denies high blood pressure,denies cardiac stent, NOTES prior heart attack, denies irregular heart beat, denies high cholesterol, denies poor circulation, denies heart failure, other cardiac issues, denies claudication, denies coldfeet, denies peripheral arterial stent. Respiratory: The patient denies tuberculosis, denies pneumonia, denies frequent cough, denies pulmonary embolism, denies shortness of breath, and denies coughing up blood. Gastrointestinal: The patient denies difficulty swallowing, denies acid reflux, denies ulcers, denies vomiting, denies jaundice/hepatitis, denies gallbladder problems, denies black or tarry stools, denies hemorrhoids, denies bleeding from rectum, denies diverticulitis, denies constipation, denies diarrhea, denies loss of stool control, and denies hernias. Kidney/Bladder: The patient denies kidney stones, NOTES urine infections, and denies bloody urine. Skin: The patient NOTES a history of skin cancer, denies bleeding/changing moles, and denies a history of skin rash. Neurologic: The patient denies a history of epilepsy/convulsions, denies headaches, denies head/spinal injuries, and denies stroke/TIA. Psychiatric: The patient denies psychiatric medications, denies depression, and denies voices, denies substance abuse. Endocrine: The patient denies thyroid disorders, denies diabetes, and denies hormonal problems. Hematologic: The patient denies a history of bruising, denies bleeding, and NOTES anemia, denies blood clots. Infections: The patient denies a history of measles and mumps, denies rheumatic fever, and denies sexually transmitted diseases. Musculoskeletal: The patient denies back pain/injury, NOTES back problems, denies sciatica, NOTES knee/foot trouble, denies arthritis, or denies gout. When was patient's last Mammogram screening? N/A Last Colonoscopy: 2013 Jhony Ma MA [facility] NoteHNO ID: [id number] Author: JHONY MA MA Service: ? Author Type: Forensic Chemist Type: Progress Notes Filed: 04/03/2024 19:13 Note Text: REVIEW OF SYSTEMS: General: The patient denies fatigue, NOTES weight loss, denies weight gain, denies feeling hot, and denies feelings of cold. Eyes: The patient denies glaucoma, NOTES eye injury/surgery, does not wear glasses or contacts. Ear/Nose/Throat: The patient denies allergies, denies hayfever, denies ear infections, and denies bloody noses. Cardiovascular: The patient denies chest pain, denies heart disease, denies high blood pressure,denies cardiac stent, NOTES prior heart attack, denies irregular heart beat, denies high cholesterol, denies poor circulation, denies heart failure, other cardiac issues, denies claudication, denies cold feet, denies peripheral arterial stent. Respiratory: The patient denies tuberculosis, denies pneumonia, denies frequent cough, denies pulmonary embolism, denies shortness of breath, and denies coughing up blood. Gastrointestinal: The patient denies difficulty swallowing, denies acid reflux, denies ulcers, denies vomiting, denies jaundice/hepatitis, denies gallbladder problems, denies black or tarry stools, denies hemorrhoids, denies bleeding from rectum, denies diverticulitis, denies constipation, denies diarrhea, denies loss of stool control, and denies hernias. Kidney/Bladder: The patient denies kidney stones, NOTES urine infections, and denies bloody urine. Skin: The patient NOTES a history of skin cancer, denies bleeding/changing moles, and denies a history of skin rash. Neurologic: The patient denies a history of epilepsy/convulsions, denies headaches, denies head/spinal injuries, and denies stroke/TIA. Psychiatric: The patient denies psychiatric medications, denies depression, and denies voices, denies substance abuse. Endocrine: The patient denies thyroid disorders, denies diabetes, and denies hormonal problems. Hematologic: The patient denies a history of bruising, denies bleeding, and NOTES anemia, denies blood clots. Infections: The patient denies a history of measles and mumps, denies rheumatic fever, and denies sexually transmitted diseases. Musculoskeletal: The patient denies back pain/injury, NOTES back problems, denies sciatica, NOTES knee/foot trouble, denies arthritis, or denies gout. When was patient's last Mammogram screening? N/A [facility] of Present illness Narrative* Dixon Valadez MD - 03/24/2024 12:40 PM EST Chief Complaint Patient presents with: Abdominal Pain: Protrusion just above the belly button HPI Reginald Vaughn is a 73 year old male who presents here today for abdominal pain. Pt c/o abdominal pain and protrusion just above the belly button that he states has grown since hislast visit in November which at that time the protrusion wasn't bothering him. Rated pain 2/10, dull throbbing, occ sharp pain with pushing the protrusion in. Pain worsens with abdominal exercises, more noticeable when sitting or standing. Occ nausea with it. Past medical history, appointments, medications, allergies reviewed. Previous Medical History PAST MEDICAL HISTORY Diagnosis Date Arthritis Bladder stones BPH (benign prostatic hyperplasia) CAD (coronary artery disease) Cancer (HCC) skin ca History of colon polyps 07/24/2013 Mixed hyperlipidemia Prostate cancer (HCC) Type 2 diabetes mellitus, without long-term current use of insulin (HCC) 06/20/2021 Previous Surgical History PAST SURGICAL HISTORY Procedure Laterality Date ARTHROSCOPY KNEE DIAGNOSTIC W/WO SYNOVIAL BX SPX Right 1989 Meniscal tear CABG (4) VEIN GRAFTS & ARTERIAL GRAFT(S) 06/08/2021 COLONOSCOPY FLX DX W/COLLJ SPEC WHEN PFRMD 07/24/2013 Colonoscopy COLONOSCOPY FLX DX W/COLLJ SPEC WHEN PFRMD 09/15/2016 Colonoscopy COLSC FLX W/RMVL OF TUMOR POLYP LESION SNARE TQ 12/30/2019 PAST SURGICAL HISTORY OF Right 2015 repair biceps tendon ROTATOR CUFF REPAIR Left 04/18/2013 Family History FAMILY HISTORY Problem Relation Age of Onset Diabetes Mother Emphysema Father Asbestosis Diabetes Brother Asthma Brother Patient Allergies ALLERGIES Allergen Reactions Ozempic [Semaglutid* Diarrhea Keflex [Cephalexin] Other: See Comments Joint Pain Current Medications Current Outpatient Medications on File Prior to Visit Medication Sig tirzepatide (MOUNJARO) 15 mg/0.5 mL pen injector Inject 15 mg subcutaneously one time a week. metFORMIN ER (GLUCOPHAGE XR) 500 mg 24 hr tablet Take 1 tablet by mouth two times a day with meals. Lancets Test blood sugar(s) 3 times daily. Dx: Type 2 DM - Controlled E11.9 Insulin: Yes blood sugar diagnostic (FREESTYLE LITE STRIPS) test strip Test blood sugar(s) 3 times daily. Dx: Type 2 DM - Controlled E11.9. Insulin: Yes. Lancing Device with Lancets Use with blood glucose test three times a day. Insulin Dep? Yes atorvastatin (LIPITOR) 40 mg tablet Take 1 tablet by mouth once daily. folic acid 1 mg tablet Take 1 tablet by mouth once daily. metoprolol tartrate, short acting, (LOPRESSOR) 50 mg tablet Take 1 tablet by mouth every 12 hours. LISINOPRIL ORAL Take 10 mg by mouth. Blood-Glucose Meter (TRUE METRIX AIR GLUCOSE METER) Test blood sugar(s) 3 times daily. Dx: Type 2 DM - Controlled E11.9 Insulin: Yes Blood Pressure Monitor CHECK vital signs daily or as needed aspirin 81 mg chewable tablet Take 1 tablet by mouth once daily. Take one ASPIRIN daily for life. acetaminophen (TYLENOL) 500 mg tablet Take 2 tablets by mouth four times daily. (Patient taking differently: Take 1,000 mg by mouth two times a day.) No current facility-administered medications on file prior to visit. Social History Social History Tobacco Use Smoking status: Former Current packs/day: 0.00 Types: Cigarettes Quit date: 07/29/2010 Years since quittin.6 Smokeless tobacco: Never Tobacco comments: years Vaping Use Vaping status: Never Used Substance Use Topics Alcohol use: Yes Comment: rarely Drug use: No EXAM: BP 124/74 Pulse 74 Resp 16 Wt 108.6 kg (239 lb 6.7 oz) BMI 35.36 kg/m General Appearance: Well appearing, alert, in no acute distress, well-hydrated, well nourished. andOverweight. Abdomen: Abd wall hernia superior and to left of umbilicus Health Maintenance List BP Controlled (<130/80) Never done Dilated Retinal Exam due on 09/06/2023 Diabetic Foot Exam due on 11/19/2023 Influenza Vaccine(1) due on 12/16/2023 Covid-19 Vaccine( season) due on 12/16/2023 Shingrix Vaccine(1 of 2) due on 11/19/2024 HbA1C due on 05/18/2024 Urine Albumin:Creatinine Ratio due on 11/15/2024 LDL Cholesterol due on 11/15/2024 Depression Screening due on 11/19/2024 Anxiety Screening due on 11/19/2024 Colorectal Cancer Screening due on 12/29/2024 Annual PCP Team Chronic Disease Visit due on 03/24/2025 DTaP,Tdap,Td Vaccine(2 - Td or Tdap) due on 05/24/2027 Abdominal Aortic Aneurysm Screening Completed Advance Directive Discussion Completed RSV Vaccine Completed Pneumococcal Vaccine: 65+ Completed Hepatitis C Screening Addressed HPV Vaccine Aged Out Data reviewed None ASSESSMENT/PLAN: 1. Abdominal wall hernia - ICD9: 553.20, ICD10: K43.9 (primary diagnosis) - CONSULT TO GENERAL SURGERY 2. Need for vaccination - ICD9: V05.9, ICD10: Z23 - PFIZER-BIONTECH COVID-19 VACCINE AGE 12+ YR (COMIRNATY) - INFLUENZA VACCINE, PRSV FREE, AGE 65+ YR, HIGH DOSE, TRIVALENT (FLUZONE HIGH-DOSE) Follow up prn I agree with the Chief Complaint, ROS, and Past Histories independently gathered by the clinical it application support analyst and the remaining scribed note accurately describes my personal service to the patient. Medical Decision Making: Problems: Low: Acute, uncomplicated illness or injury Risk: Low: Low risk from testing/treatment Medical Decision Making Level: 3 - Low Dixon Valadez MD The documentation for this note was completed by Sierra Resendez MA acting as scribe for Dixon Valadez MD. March 24, 2024 12:31 PM. Sierra Resendez MA [facility] NoteHNO ID: [id number] Author: DIXON VALADEZ MD Service: ? Author Type: Physician Type: Progress Notes Filed: 03/24/2024 14:49 Note Text: Chief Complaint Patient presents with: Abdominal Pain: Protrusion just above the belly button HPI Reginald Vaughn is a 73 year old male who presents here today for abdominal pain. Pt c/o abdominal pain and protrusion just above the belly button that he states has grown since his last visit in November which at that time the protrusion wasn't bothering him. Rated pain 2/10, dull throbbing, occ sharp pain with pushing the protrusion in. Pain worsens with abdominal exercises, more noticeable when sitting or standing. Occ nausea with it. Past medical history, appointments, medications, allergies reviewed. Previous Medical History PAST MEDICAL HISTORY Diagnosis Date Arthritis Bladder stones BPH (benign prostatic hyperplasia) CAD (coronary artery disease) Cancer (HCC) skin ca History of colon polyps 07/24/2013 Mixed hyperlipidemia Prostate cancer (HCC) Type 2 diabetes mellitus, without long-term current use of insulin (HCC) 06/20/2021 Previous Surgical History PAST SURGICAL HISTORY Procedure Laterality Date ARTHROSCOPY KNEE DIAGNOSTIC W/WO SYNOVIAL BX SPX Right 1989 Meniscal tear CABG (4) VEIN GRAFTS AND ARTERIAL GRAFT(S) 06/08/2021 COLONOSCOPY FLX DX W/COLLJ SPEC WHEN PFRMD 07/24/2013 Colonoscopy COLONOSCOPY FLX DX W/COLLJ SPEC WHEN PFRMD 09/15/2016 Colonoscopy COLSC FLX W/RMVL OF TUMOR POLYP LESION SNARE TQ 12/30/2019 PAST SURGICAL HISTORY OF Right 2015 repair biceps tendon ROTATOR CUFF REPAIR Left 04/18/2013 Family History FAMILY HISTORY Problem Relation Age of Onset Diabetes Mother Emphysema Father Asbestosis Diabetes Brother Asthma Brother Patient Allergies ALLERGIES Allergen Reactions Ozempic [Semaglutid* Diarrhea Keflex [Cephalexin] Other: See Comments Joint Pain Current Medications Current Outpatient Medications on File Prior to Visit Medication Sig tirzepatide (MOUNJARO) 15 mg/0.5 mL pen injector Inject 15 mg subcutaneously one time a week. metFORMIN ER (GLUCOPHAGE XR) 500 mg 24 hr tablet Take 1 tablet by mouth two times a day with meals. Lancets Test blood sugar(s) 3 times daily. Dx: Type 2 DM - Controlled E11.9 Insulin: Yes blood sugar diagnostic (FREESTYLE LITE STRIPS) test strip Test blood sugar(s) 3 times daily. Dx: Type 2 DM - Controlled E11.9. Insulin: Yes. Lancing Device with Lancets Use with blood glucose test three times a day. Insulin Dep? Yes atorvastatin (LIPITOR) 40 mg tablet Take 1 tablet by mouth once daily. folic acid 1 mg tablet Take 1 tablet by mouth once daily. metoprolol tartrate, short acting, (LOPRESSOR) 50 mg tablet Take 1 tablet by mouth every 12 hours. LISINOPRIL ORAL Take 10 mg by mouth. Blood-Glucose Meter (TRUE METRIX AIR GLUCOSE METER) Test blood sugar(s) 3 times daily. Dx: Type 2 DM - Controlled E11.9 Insulin: Yes Blood Pressure Monitor CHECK vital signs daily or as needed aspirin 81 mg chewable tablet Take 1 tablet by mouth once daily. Take one ASPIRIN daily for life. acetaminophen (TYLENOL) 500 mg tablet Take 2 tablets by mouth four times daily. (Patient taking differently: Take 1,000 mg by mouth two times a day.) No current facility-administered medications on file prior to visit. Social History Social History Tobacco Use Smoking status: Former Current packs/day: 0.00 Types: Cigarettes Quit date: 07/29/2010 Years since quittin.6 Smokeless tobacco: Never Tobacco comments: years Vaping Use Vaping status: Never Used Substance Use Topics Alcohol use: Yes Comment: rarely Drug use: No EXAM: BP 124/74 Pulse 74 Resp 16 Wt 108.6 kg (239 lb 6.7 oz) BMI 35.36 kg/m? General Appearance: Well appearing, alert, in no acute distress, well-hydrated, well nourished. and Overweight. Abdomen: Abd wall hernia superior and to left of umbilicus Health Maintenance List BP Controlled (<130/80) Never done Dilated Retinal Exam due on 09/06/2023 Diabetic Foot Exam due on 11/19/2023 Influenza Vaccine(1) due on 12/16/2023 Covid-19 Vaccine( season) due on 12/16/2023 Shingrix Vaccine(1 of 2) due on 11/19/2024 HbA1C due on 05/18/2024 Urine Albumin:Creatinine Ratio due on 11/15/2024 LDL Cholesterol due on 11/15/2024 Depression Screening due on 11/19/2024 Anxiety Screening due on 11/19/2024 Colorectal Cancer Screening due on 12/29/2024 Annual PCP Team Chronic Disease Visit due on 03/24/2025 DTaP,Tdap,Td Vaccine(2 - Td or Tdap) due on 05/24/2027 Abdominal Aortic Aneurysm Screening Completed Advance Directive Discussion Completed RSV Vaccine Completed Pneumococcal Vaccine: 65+ Completed Hepatitis C Screening Addressed HPV Vaccine Aged Out Data reviewed None ASSESSMENT/PLAN: 1. Abdominal wall hernia - ICD9: 553.20, ICD10: K43.9 (primary diagnosis) - CONSULT TO GENERAL SURGERY 2. Need (more content not included)...[facility]11-22-2024 Telephone encounter Note* Telephone Encounter - Payam Conrad RN - 03/07/2024 4:54 PM EST Notified patient. [facility] Miscellaneous Notes* Telephone Encounter - Payam Conrad RN - 03/07/2024 4:54 PM EST Notified patient. * Telephone Encounter - Dixon Valadez MD - 03/07/2024 4:43 PM EST OK to refill as ordered Dixon Valadez MD * Telephone Encounter - Sierra Resendez MA - 03/07/2024 4:40 PM EST Prescription Refill Information The patient has been identified by name and date of : Yes Caregiver verified no other encounters exist for this prescription request: Yes Caregiver confirmed with patient/requestor that no other refills are due, in the near future, with this provider at this time: No The last office visit in the department: 11/20/23 Does the patient have a future office visit with this provider/department: Yes Requested Prescriptions Pending Prescriptions Disp Refills tirzepatide (MOUNJARO) 15 mg/0.5 mL pen injector 6 mL 3 Sig: Inject 15 mg subcutaneously one time a week. metFORMIN ER (GLUCOPHAGE XR) 500 mg 24 hr tablet 360 tablet 3 Sig: Take 1 tablet by mouth two times a day with meals. Sierra Resendez MA March 07, 2024 4:40 PM [facility] Telephone encounter Note * Telephone Encounter - Dixon Valadez MD - 03/07/2024 4:43 PM EST OK to refill as ordered Dixon Valadez MD [facility] Telephone encounter Note* Telephone Encounter - Sierra Resendez MA - 03/07/2024 4:41 PM EST Metformin refilled in other refill request. Sierra Resendez MA [facility] Miscellaneous Notes* Telephone Encounter - Sierra Resendez MA - 03/07/2024 4:41 PM EST Metformin refilled in other refill request. Sierra Resendez MA [facility] Telephone encounter Note * Telephone Encounter - Sierra Resendez MA - 03/07/2024 4:40 PM EST Prescription Refill Information The patient has been identified by name and date of : Yes Caregiver verified no other encounters exist for this prescription request: Yes Caregiver confirmed with patient/requestor that no other refills are due, in the near future, with this provider at this time: No The last office visit in the department: 11/20/23 Does the patient have a future office visit with this provider/department: Yes Requested Prescriptions Pending Prescriptions Disp Refills tirzepatide (MOUNJARO) 15 mg/0.5 mL pen injector 6 mL 3 Sig: Inject 15 mg subcutaneously one time a week. metFORMIN ER (GLUCOPHAGE XR) 500 mg 24 hr tablet 360 tablet 3 Sig: Take 1 tablet by mouth two times a day with meals. Sierra Resendez MA March 07, 2024 4:40 PM [facility] NoteHNO ID: [id number] Author: RAJAT العراقي JR, MD Service: ? Author Type: Physician Type: Progress Notes Filed: 02/14/2024 11:22 Note Text: ESTABLISHED PATIENT OFFICE VISIT HPI Reginald Vaughn is a 73 year old male who presents sp turp 07/29. 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 Voiding. pvr 524. ua +. 09/03/20: Office cysto with well resected prostatic fossa 09/29/20 - Had UDS on 09/23. Showed GOLDMAN. Was able to void 250cc of 500. Feels like getting sensation back. No more gross hematuria. No flank pain. 11/03/20: Had CIC teaching after last visit (16 Coude BID). - pvr's still 500+. Path discussed today from turp 12/08/2020: Patient still straight cathing BID. Is getting out some sediment at the end of catheterizations. No recent UTIs. Intermittent hematuria which is mild. He is able to void in between catheterizations and believes this is improving. Had CT pelvis and bone scan which were negative for metastatic disease. Has not had recent PSA. 02/09/21: doing well. Has continued to self cath bid in the morning and night. Catheter was placed today and urine culture sent. Finished course of bactrim yesterday and refilled new script. Denies any current issues. 03/24/21 - cath out today. cath'd easily. 04/01/2021 - S/p RALP and PLND on 02/21/2021. Catheter was removed on 03/24/2021. Patient began having R scrotal pain on 03/25. Went to ED and was diagnosed with UTI and had scrotal US which demonstrated R epididymo-orchitis. He was started on abx and kept in holding for ~48 hours. Patient believes he is slowly improving. He still has R scrotal swelling but this seems to be improving. He still has 7 days remaining of levofloxacin. No fevers or chills. He had hirsch catheter inserted while inpatient due to the swelling and inability to straight cath. 04/14/21 - r epididymo-orchitis much improved. Still on abx 04/28/21 - post op psa 5.81. cathing for very small amounts. Nearly continent. 07/28/21 - since last seen had NSTEMI. Got cabg x4. Much improved. In retention at the time. Voiding ok now. Nearly continent. psa 07/05 4.49. received lupron x 6 months today. Decipher low risk. Score 0.41. will get radiation. 01/04/22 - since last seen had uti. Still cathing once a week. Amounts are minimal. Voiding well. Luts controlled. Incontinence controlled. Done with xrt. No recent psa. Got one lupron. Not supposed to get anymore 07/13/22 - doing great since last seen. Psa <0.02. luts controlled. Minimal robert. Feels well overall. No fever. No uti. 01/25/23 - doing well since last seen. Psa <0.02. minimal robert. No fever. No uti. 08/02/23 - doing great since last seen. Minimal robert. Psa <0.02. no fever. No uti. 02/14/24 - doing great since last seen. Minimal robert. Psa <0.02. no fever. No uti LAB: Creatinine Date Value Ref Range Status 11/16/2023 0.78 0.73 - 1.22 mg/dL Final PSA (ng/mL) Date Value 02/01/2024 <0.02 07/04/2023 <0.02 03/03/2023 <0.02 01/08/2023 <0.02 04/28/2022 <0.02 06/27/2021 4.49 04/26/2021 5.81 12/08/2020 7.85 Glucose, Urine (no units) Date Value 06/05/2021 Negative Bilirubin, Urine (no units) Date Value 06/05/2021 Negative Ketones, Urine (no units) Date Value 06/05/2021 Negative Specific [place], Ur (no units) Date Value 06/05/2021 1.012 Hemoglobin/Blood,Ur (no units) Date Value 06/05/2021 Negative pH, Urine (no units) Date Value 06/05/2021 6.0 Protein, Urine (no units) Date Value 06/05/2021 Negative Nitrites (no units) Date Value 06/05/2021 Negative WBC, Urine (no units) Date Value 06/05/2021 0-5 /HPF MEDICATIONS: Lancets Test blood sugar(s) 3 times daily. Dx: Type 2 DM - Controlled E11.9 Insulin: Yes blood sugar diagnostic (FREESTYLE LITE STRIPS) test strip Test blood sugar(s) 3 times daily. Dx: Type 2 DM - Controlled E11.9. Insulin: Yes. metFORMIN ER (GLUCOPHAGE XR) 500 mg 24 hr tablet Take 1 tablet by mouth two times a day with meals. Lancing Device with Lancets Use with blood glucose test three times a day. Insulin Dep? Yes tirzepatide (MOUNJARO) 15 mg/0.5 mL pen injector Inject 15 mg subcutaneously one time a week. atorvastatin (LIPITOR) 40 mg tablet Take 1 tablet by mouth once daily. folic acid 1 mg tablet Take 1 tablet by mouth once daily. metoprolol tartrate, short acting, (LOPRESSOR) 50 mg tablet Take 1 tablet by mouth every 12 hours. LISINOPRIL ORAL Take 10 mg by mouth. Blood-Glucose Meter (TRUE METRIX AIR GLUCOSE METER) Test blood sugar(s) 3 times daily. Dx: Type 2 DM - Controlled E11.9 Insulin: Yes acetaminophen (TYLENOL) 500 mg tablet Take 2 tablets by mouth four times daily. (Patient taking differently: Take 1,000 mg by mouth two times a day.) Blood Pressure Monitor CHECK vital signs daily or as needed aspirin 81 mg chewable tablet Take 1 tablet by mouth once daily. Take one ASPIRIN daily for life. REVIEW OF SYSTEMS Review of Systems Constitutional: (more content not included)...[facility] 02-14-2024 History of Present illness Narrative* Rajat العراقي Jr., MD - 02/14/2024 11:21 AM EDT ESTABLISHED PATIENT OFFICE VISIT HPI Reginald Vaughn is a 73 year old male who presents sp turp 07/29. 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 Voiding. pvr 524. ua +. 09/03/20: Office cysto with well resected prostatic fossa 09/29/20 - Had UDS on 09/23. Showed GOLDMAN. Was able to void 250cc of 500. Feels like getting sensation back. No more gross hematuria. No flank pain. 11/03/20: Had CIC teaching after last visit (16 Coude BID). - pvr's still 500+. Path discussed todayfrom turp 12/08/2020: Patient still straight cathing BID. Is getting out some sediment at the end of catheterizations. No recent UTIs. Intermittent hematuria which is mild. He is able to void in between catheterizations and believes this is improving. Had CT pelvis and bone scan which were negative for metastatic disease. Has not had recent PSA. 02/09/21: doing well. Has continued to self cath bid in the morning and night. Catheter was placed today and urine culture sent. Finished course of bactrim yesterday and refilled new script. Denies any current issues. 03/24/21 - cath out today. cath'd easily. 04/01/2021 - S/p RALP and PLND on 02/21/2021. Catheter was removed on 03/24/2021. Patient began having R scrotal pain on 03/25. Went to ED and was diagnosed with UTI and had scrotal US which demonstrated R epididymo-orchitis. He was started on abx and kept in holding for ~48 hours. Patient believes he is slowly improving. He still has R scrotal swelling but this seems to be improving. He still has 7 days remaining of levofloxacin. No fevers or chills. He had hirsch catheter inserted while inpatient due to the swelling and inability to straight cath. 04/14/21 - r epididymo-orchitis much improved. Still on abx 04/28/21 - post op psa 5.81. cathing for very small amounts. Nearly continent. 07/28/21 - since last seen had NSTEMI. Got cabg x4. Much improved. In retention at the time. Voidingok now. Nearly continent. psa 07/05 4.49. received lupron x 6 months today. Decipher low risk. Score0.41. will get radiation. 01/04/22 - since last seen had uti. Still cathing once a week. Amounts are minimal. Voiding well. Luts controlled. Incontinence controlled. Done with xrt. No recent psa. Got one lupron. Not supposed to get anymore 07/13/22 - doing great since last seen. Psa <0.02. luts controlled. Minimal robert. Feels well overall. No fever. No uti. 01/25/23 - doing well since last seen. Psa <0.02. minimal robert. No fever. No uti. 08/02/23 - doing great since last seen. Minimal robert. Psa <0.02. no fever. No uti. 02/14/24 - doing great since last seen. Minimal robert. Psa <0.02. no fever. No uti LAB: Creatinine Date Value Ref Range Status 11/16/2023 0.78 0.73 - 1.22 mg/dL Final PSA (ng/mL) Date Value 02/01/2024 <0.02 07/04/2023 <0.02 03/03/2023 <0.02 01/08/2023 <0.02 04/28/2022 <0.02 06/27/2021 4.49 04/26/2021 5.81 12/08/2020 7.85 Glucose, Urine (no units) Date Value 06/05/2021 Negative Bilirubin, Urine (no units) Date Value 06/05/2021 Negative Ketones, Urine (no units) Date Value 06/05/2021 Negative Specific [place], Ur (no units) Date Value 06/05/2021 1.012 Hemoglobin/Blood,Ur (no units) Date Value 06/05/2021 Negative pH, Urine (no units) Date Value 06/05/2021 6.0 Protein, Urine (no units) Date Value 06/05/2021 Negative Nitrites (no units) Date Value 06/05/2021 Negative WBC, Urine (no units) Date Value 06/05/2021 0-5 /HPF MEDICATIONS: Lancets Test blood sugar(s) 3 times daily. Dx: Type 2 DM - Controlled E11.9 Insulin: Yes blood sugar diagnostic (FREESTYLE LITE STRIPS) test strip Test blood sugar(s) 3 times daily. Dx: Type 2 DM - Controlled E11.9. Insulin: Yes. metFORMIN ER (GLUCOPHAGE XR) 500 mg 24 hr tablet Take 1 tablet by mouth two times a day with meals. Lancing Device with Lancets Use with blood glucose test three times a day. Insulin Dep? Yes tirzepatide (MOUNJARO) 15 mg/0.5 mL pen injector Inject 15 mg subcutaneously one time a week. atorvastatin (LIPITOR) 40 mg tablet Take 1 tablet by mouth once daily. folic acid 1 mg tablet Take 1 tablet by mouth once daily. metoprolol tartrate, short acting, (LOPRESSOR) 50 mg tablet Take 1 tablet by mouth every 12 hours. LISINOPRIL ORAL Take 10 mg by mouth. Blood-Glucose Meter (TRUE METRIX AIR GLUCOSE METER) Test blood sugar(s) 3 times daily. Dx: Type 2 DM - Controlled E11.9 Insulin: Yes acetaminophen (TYLENOL) 500 mg tablet Take 2 tablets by mouth four times daily. (Patient taking differently: Take 1,000 mg by mouth two times a day.) Blood Pressure Monitor CHECK vital signs daily or as needed aspirin 81 mg chewable tablet Take 1 tablet by mouth once daily. Take one ASPIRIN daily for life. REVIEW OF SYSTEMS Review of Systems Constitutional: Negative. Respiratory: Negative. Cardiovascular: Negative. Gastrointestinal: Negative. Genitourinary: Negative. Skin: Negative. Neurological: Negative. Psychiatric/Behavioral: Negative. HISTORIES PAST MEDICAL HISTORY Diagnosis Date Arthritis Bladder stones BPH (benign prostatic hyperplasia) CAD (coronary artery disease) Cancer (HCC) skin ca History of colon polyps 07/24/2013 Mixed hyperlipidemia Prostate cancer (HCC) Type 2 diabetes mellitus, without long-term current use of insulin (HCC) 06/20/2021 FAMILY HISTORY Problem Relation Age of Onset Diabetes Mother Emphysema Father Asbestosis Diabetes Brother Asthma Brother SOCIAL HISTORY Social History Tobacco Use Smoking status: Former Current packs/day: 0.00 Types: Cigarettes Quit date: 07/29/2010 Years since quittin.5 Smokeless tobacco: Never Tobacco comments: years Vaping Use Vaping status: Never Used Substance Use Topics Alcohol use: Yes Comment: rarely Drug use: No PHYSICAL EXAMINATION General appearance: Well appearing, alert, in no acute distress, and well- hydrated, well nourished Skin: Skin color, texture, turgor normal, no suspicious rashes or lesions Respiratory:+ effort Cardiovascular: Not examined GI: Normal abdominal exam, Abdomen soft, non-tender. No masses, organomegaly Musculoskeletal: Negative Neuro: Negative Genitourinary: not examined Impression: (C61) Prostate cancer (HCC) (primary encounter diagnosis) Plan: 1 year Psa in 6 months Rajat العراقي Jr, MD 02/14/2024 [facility] Telephone encounter Note * Telephone Encounter - Analilia Ram MA - 12/18/2023 8:56 AM EDT Rx sent in by Cardio, recommended pt reach out to Cardiologists office to obtain refill. Analilia Ram MA [facility] Miscellaneous Notes* Telephone Encounter - Analilia Ram MA - 12/18/2023 8:56 AM EDT Rx sent in by Cardio, recommended pt reach out to Cardiologists office to obtain refill. Analilia Ram MA [facility] History of Present illness Narrative* Dixon Valadez MD - 11/20/2023 9:20 AM EDT Chief Complaint Patient presents with: F/U 6 Month HPI Reginald Vaughn is a 73 year old male who presents here today for 6 month follow up. Here today for his 6 month follow up. Wants to discuss his labs. No bowel, Gi, or urinary issues. Follows with Urologist Dr. العراقي for prostate cancer. DM: Checking BS once a day with FBS 86-112. Denies any hypoglycemic episodes or neuropathy sx. Taking Mounjaro 15 mg weekly and Metformin xr 500 mg 2 pills BID. Needs to follow up with Dr. Evangelista. Lipid/CAD: Tries to watch diet. Walks for exercise and started doing aust[place] twists to help with core strengthening. Has a bulge in his stomach that concerns him. Taking Lipitor 40 mg daily and Plavix 75 mg daily. Also taking ASA 81 mg daily. HTN: Follows with [facility]. Hx of CABG and NSTEMI. Taking Lisinopril 10 mg daily and Lopressor 50 mg BID. Denies checking BP at home. Denies any chest pains, dizziness, or SOB. Pain: Right knee pain; notes it snaps and cracks, at times bothersome. States at some point may need surgery. Also notes his shoulder needs replaced. Uses Tylenol twice daily as his daily regimen. Follows with Jasmin Abdi PA-C in dermatology. HM - Depression/Anxiety screening negative. Covid vaccine this fall. Declines Shingles vaccine. Past medical history, appointments, medications, allergies reviewed. Previous Medical History PAST MEDICAL HISTORY No date: Arthritis No date: Bladder stones No date: BPH (benign prostatic hyperplasia) No date: CAD (coronary artery disease) No date: Cancer (HCC) Comment: skin ca 07/24/2013: History of colon polyps No date: Mixed hyperlipidemia No date: Prostate cancer (HCC) 06/20/2021: Type 2 diabetes mellitus, without long-term current use of insulin (HCC) Previous Surgical History PAST SURGICAL HISTORY 1989: ARTHROSCOPY KNEE DIAGNOSTIC W/WO SYNOVIAL BX SPX; Right Comment: Meniscal tear 06/08/2021: CABG (4) VEIN GRAFTS & ARTERIAL GRAFT(S) 07/24/2013: COLONOSCOPY FLX DX W/COLLJ SPEC WHEN PFRMD Comment: Colonoscopy 09/15/2016: COLONOSCOPY FLX DX W/COLLJ SPEC WHEN PFRMD Comment: Colonoscopy 12/30/2019: COLSC FLX W/RMVL OF TUMOR POLYP LESION SNARE TQ 2014: PAST SURGICAL HISTORY OF; Right Comment: repair biceps tendon 04/18/2013: ROTATOR CUFF REPAIR; Left Family History FAMILY HISTORY Problem Relation Age of Onset Diabetes Mother Emphysema Father Asbestosis Diabetes Brother Asthma Brother Patient Allergies ALLERGIES Allergen Reactions Ozempic [Semaglutid* Diarrhea Keflex [Cephalexin] Other: See Comments Joint Pain Current Medications Current Outpatient Medications on File Prior to Visit Medication Sig Lancets Test blood sugar(s) 3 times daily. Dx: Type 2 DM - Controlled E11.9 Insulin: Yes blood sugar diagnostic (FREESTYLE LITE STRIPS) test strip Test blood sugar(s) 3 times daily. Dx: Type 2 DM - Controlled E11.9. Insulin: Yes. Lancing Device with Lancets Use with blood glucose test three times a day. Insulin Dep? Yes tirzepatide (MOUNJARO) 15 mg/0.5 mL pen injector Inject 15 mg subcutaneously one time a week. metFORMIN ER (GLUCOPHAGE XR) 500 mg 24 hr tablet Take 2 tablets by mouth two times a day with meals. atorvastatin (LIPITOR) 40 mg tablet Take 1 tablet by mouth once daily. clopidogrel (PLAVIX) 75 mg tablet Take 1 tablet by mouth once daily. Continue Plavix x one year, following heart attack. folic acid 1 mg tablet Take 1 tablet by mouth once daily. metoprolol tartrate, short acting, (LOPRESSOR) 50 mg tablet Take 1 tablet by mouth every 12 hours. LISINOPRIL ORAL Take 10 mg by mouth. Blood-Glucose Meter (TRUE METRIX AIR GLUCOSE METER) Test blood sugar(s) 3 times daily. Dx: Type 2 DM - Controlled E11.9 Insulin: Yes Blood Pressure Monitor CHECK vital signs daily or as needed aspirin 81 mg chewable tablet Take 1 tablet by mouth once daily. Take one ASPIRIN daily for life. acetaminophen (TYLENOL) 500 mg tablet Take 2 tablets by mouth four times daily. (Patient taking differently: Take 1,000 mg by mouth two times a day.) No current facility-administered medications on file prior to visit. Social History Social History Tobacco Use Smoking status: Former Types: Cigarettes Quit date: 07/29/2010 Years since quittin.3 Smokeless tobacco: Never Tobacco comments: years Vaping Use Vaping Use: Never used Substance Use Topics Alcohol use: Yes Comment: rarely Drug use: No EXAM: BP 124/82 (BP Site: Left Arm, BP Position: Sitting, BP Cuff Size: Large Adult) Pulse 72 Resp 18 Wt 107.4 kg (236 lb 12.4 oz) BMI 34.97 kg/m General Appearance: Well appearing, alert, in no acute distress, well-hydrated, well nourished.. Lungs: Lungs clear to auscultation. No wheezing, rhonchi, rales.. Heart: RRR without murmur, gallop, or rubs. No ectopy. Health Maintenance List Depression Screening Never done Anxiety Screening Never done Shingrix Vaccine(1 of 2) Never done Covid-19 Vaccine( season) due on 06/05/2023 Dilated Retinal Exam due on 09/06/2023 Diabetic Foot Exam due on 11/19/2023 Influenza Vaccine(1) due on 12/16/2023 HbA1C due on 05/18/2024 Annual PCP Team Chronic Disease Visit due on 05/22/2024 Urine Albumin:Creatinine Ratio due on 11/15/2024 LDL Cholesterol due on 11/15/2024 Colorectal Cancer Screening due on 12/29/2024 DTaP,Tdap,Td Vaccine(2 - Td or Tdap) due on 05/24/2027 Abdominal Aortic Aneurysm Screening Completed Advance Directive Discussion Completed RSV Vaccine Completed Pneumococcal Vaccine: 65+ Completed Hepatitis C Screening Addressed HPV Vaccine Aged Out Data reviewed Appointment on 11/16/2023 Component Date Value Cholesterol, Total 11/16/2023 130 Triglyceride 11/16/2023 119 HDL Cholesterol 11/16/2023 37 (L) Non HDL Cholesterol 11/16/2023 93 Fasting Time 11/16/2023 12 VLDL Cholesterol 11/16/2023 24 TC:HDL Ratio 11/16/2023 3.51 LDL Cholesterol 11/16/2023 69 LDL:HDL Ratio 11/16/2023 1.86 Protein, Total 11/16/2023 6.4 Albumin 11/16/2023 4.2 Calcium, Total 11/16/2023 9.4 Bilirubin, Total 11/16/2023 0.5 Alkaline Phosphatase 11/16/2023 78 AST 11/16/2023 17 ALT 11/16/2023 12 Glucose 11/16/2023 103 (H) BUN 11/16/2023 13 Creatinine 11/16/2023 0.78 Sodium 11/16/2023 140 Potassium 11/16/2023 4.4 Chloride 11/16/2023 103 CO2 11/16/2023 22 Anion Gap 11/16/2023 15 Estimated Glomerular Colin* 11/16/2023 94 Hemoglobin A1C 11/16/2023 4.7 Estimated Average Glucose 11/16/2023 88 Creatinine, Ur Random (U* 11/16/2023 157.4 Albumin, Urine Random 11/16/2023 97.8 Albumin/Creat Ratio 11/16/2023 62 (H) ASSESSMENT/PLAN: 1. Type 2 diabetes mellitus without complication, with long-term current use of insulin (HCC) - ICD9: 250.00, V58.67, ICD10: E11.9, Z79.4 (primary diagnosis) - Controlled - Decrease metformin - COMPREHENSIVE METABOLIC PANEL - LIPID PANEL BASIC - HEMOGLOBIN A1C 2. Hypertension, unspecified type - ICD9: 401.9, ICD10: I10 - Controlled - Continue current medications - Recommend home blood pressure monitoring, to bring results to next visit - Encouraged sodium restriction, DASH or Mediterranean diet - Recommend regular aerobic exercise - COMPREHENSIVE METABOLIC PANEL - LIPID PANEL BASIC 3. Hyperlipidemia, mixed - ICD9: 272.2, ICD10: E78.2 - Controlled - Continue current medications - Counseled on healthy diet and regular exercise - COMPREHENSIVE METABOLIC PANEL - LIPID PANEL BASIC 4. Coronary artery disease involving [place] coronary artery of [place] heart without angina pectoris- ICD9: 414.01, ICD10: I25.10 - LIPID PANEL BASIC 5. NSTEMI (non-ST elevated myocardial infarction) (HCC) - ICD9: 410.70, ICD10: I21.4 6. Prostate cancer (HCC) - ICD9: 185, ICD10: C61 Stable Follow with Urology 7. Screening for depression - ICD9: V79.0, ICD10: Z13.31 - DEPRESSION SCREENING 8. Encounter for screening examination for other mental health and behavioral disorders - ICD9: V79.8, ICD10: Z13.39 - ANXIETY SCREENING 9. Type 2 diabetes mellitus without complication, without long-term current use of insulin (HCC) - ICD9: 250.00, ICD10: E11.9 - METFORMIN ER 500 MG TABLET,EXTENDED RELEASE 24 HR Follow up in 6 months Medical Decision Making: Problems: Moderate: 2+ stable chronic illnesses Data: Unique test result(s) reviewed: 3+ Unique test(s) ordered: 3+ Risk: Moderate: Drug management Medical Decision Making Level: 4 - Moderate Dixon Valadez MD [facility] Telephone encounter Note * Telephone Encounter - Dixon Valadez MD - 10/26/2023 8:35 AM EDT OK to refill as ordered Dixon Valadez MD [facility] Miscellaneous Notes* Telephone Encounter - Dixon Valadez MD - 10/26/2023 8:35 AM EDT OK to refill as ordered Dixon Valadez MD * Telephone Encounter - Ana Leal LPN - 10/26/2023 7:30 AM EDT SHARA-05/22/23 Labs-05/22/23Feb-11/20/23 Ana Leal LPN [facility] Telephone encounter Note * Telephone Encounter - Ana Leal LPN - 10/26/2023 7:30 AM EDT SHARA-05/22/23 Labs-05/22/23Feb-11/20/23 Ana Leal LPN [facility]05-[facility] History of Present illness Narrative* Tonya Cristina RDMS - 09/12/2023 7:45 AM EDT Radiology Service Progress Note PATIENT NAME: Reginald Vaughn DATE OF SERVICE: September 12, 2023 TIME: 3:21 PM PATIENT IDENTITY VERIFICATION COMPLETED USING TWO (2) IDENTIFIERS: Name and Date of confirmedby patient verbally. FALL SCREENING: Has the patient had 2 falls in the last year or 1 fall with injury or currently using an Ambulatory Assistive Device (Walker, Cane, Wheelchair, Crutches, etc.)? No PATIENT GENDER DATA: Male PATIENT RELEVANT IMPLANT DATA REVIEWED: Not Applicable PATIENT PRESENTS WITH AN IMPLANTABLE OR ATTACHED MECHANICAL MAINTENANCE TECHNICIAN: No RADIOLOGY DEPARTMENT: Ultrasound PERIPHERAL IV DATA: Not applicable SIGNED BY: Tonya Cristina RDMS September 12, 2023 3:21 PM [facility]05-[facility] Telephone encounter Note * Telephone Encounter - Dixon Valadez MD - 09/11/2023 2:38 PM EDT New Rx sent Dixon Valadez MD [facility] Miscellaneous Notes* Telephone Encounter - Dixon Valadez MD - 09/11/2023 2:38 PM EDT New Rx sent Dixon Valadez MD * Telephone Encounter - Analilia Ram MA - 09/11/2023 11:25 AM EDT Called and left message on patients voicemail to return call to the office and ask to speak with a FM triage nurse. Please ask pt if he is needing a new Rx sent into the Pharmacy? Unsure what else is needing done. Analilia Ram MA * Telephone Encounter - Jaycee Menon - 09/11/2023 9:36 AM EDT Reginald is calling Dixon Valadez MD today with concern regarding Medication Problem - His Lancet Pen broke. Reginald's Lancets Pen broke-the end popped off when he took it out of the case. Tried to spring loadit but it doesn't work. He is asking for a nurse to please call him. Patient has been identified by name and birthdate. Duration of symptoms: N/A Person calling: self Call patient at: at home [phone] (home) [phone] (cell) Was an appointment scheduled: No Closing statement: Results or non-symptom based questions: Thank you for calling [facility], your call will be returned within the next business day. Jaycee Menon documented [facility] encounter[facility]05-28-[facility]24 Telephone encounter Note * Telephone Encounter - Analilia Ram MA - 09/11/2023 11:25 AM EDT Called and left message on patients voicemail to return call to the office and ask to speak with a FM triage nurse. Please ask pt if he is needing a new Rx sent into the Pharmacy? Unsure what else is needing done. Analilia Ram MA [facility] Telephone encounter Note* Telephone Encounter - Jaycee Menon - 09/11/2023 9:36 AM EDT Reginald is calling Dixon Valadez MD today with concern regarding Medication Problem - His Lancet Pen broke. Reginald's Lancets Pen broke-the end popped off when he took it out of the case. Tried to spring loadit but it doesn't work. He is asking for a nurse to please call him. Patient has been identified by name and birthdate. Duration of symptoms: N/A Person calling: self Call patient at: at home [phone] (home) [phone] (cell) Was an appointment scheduled: No Closing statement: Results or non-symptom based questions: Thank you for calling [facility], your call will be returned within the next business day. Jaycee Menon [facility]04-18-[facility] History of Present illness Narrative* Rajat العراقي Jr., MD - 08/02/2023 9:17 AM EDT ESTABLISHED PATIENT OFFICE VISIT HPI Reginald Vaughn is a 72 year old male who presents sp turp 07/29. 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 Voiding. pvr 524. ua +. 09/03/20: Office cysto with well resected prostatic fossa 09/29/20 - Had UDS on 09/23. Showed GOLDMAN. Was able to void 250cc of 500. Feels like getting sensation back. No more gross hematuria. No flank pain. 11/03/20: Had [facility] teaching after last visit (16 Coude BID). - pvr's still 500+. Path discussed todayfrom turp 12/08/2020: Patient still straight cathing BID. Is getting out some sediment at the end of catheterizations. No recent UTIs. Intermittent hematuria which is mild. He is able to void in between catheterizations and believes this is improving. Had CT pelvis and bone scan which were negative for metastatic disease. Has not had recent PSA. 02/09/21: doing well. Has continued to self cath bid in the morning and night. Catheter was placed today and urine culture sent. Finished course of bactrim yesterday and refilled new script. Denies any current issues. 03/24/21 - cath out today. cath'd easily. 04/01/2021 - S/p RALP and PLND on 02/21/2021. Catheter was removed on 03/24/2021. Patient began having R scrotal pain on 03/25. Went to ED and was diagnosed with UTI and had scrotal US which demonstrated R epididymo-orchitis. He was started on abx and kept in holding for ~48 hours. Patient believes he is slowly improving. He still has R scrotal swelling but this seems to be improving. He still has 7 days remaining of levofloxacin. No fevers or chills. He had hirsch catheter inserted while inpatient due to the swelling and inability to straight cath. 04/14/21 - r epididymo-orchitis much improved. Still on abx 04/28/21 - post op psa 5.81. cathing for very small amounts. Nearly continent. 07/28/21 - since last seen had NSTEMI. Got cabg x4. Much improved. In retention at the time. Voidingok now. Nearly continent. psa 07/05 4.49. received lupron x 6 months today. Decipher low risk. Score0.41. will get radiation. 01/04/22 - since last seen had uti. Still cathing once a week. Amounts are minimal. Voiding well. Luts controlled. Incontinence controlled. Done with xrt. No recent psa. Got one lupron. Not supposed to get anymore 07/13/22 - doing great since last seen. Psa <0.02. luts controlled. Minimal robert. Feels well overall. No fever. No uti. 01/25/23 - doing well since last seen. Psa <0.02. minimal robert. No fever. No uti. 08/02/23 - doing great since last seen. Minimal robert. Psa <0.02. no fever. No uti. LAB: Creatinine Date Value Ref Range Status 05/21/2023 0.82 0.73 - 1.22 mg/dL Final PSA (ng/mL) Date Value 07/04/2023 <0.02 03/03/2023 <0.02 01/08/2023 <0.02 04/28/2022 <0.02 06/27/2021 4.49 04/26/2021 5.81 12/08/2020 7.85 Glucose, Urine (no units) Date Value 06/05/2021 Negative Bilirubin, Urine (no units) Date Value 06/05/2021 Negative Ketones, Urine (no units) Date Value 06/05/2021 Negative Specific [place], Ur (no units) Date Value 06/05/2021 1.012 Hemoglobin/Blood,Ur (no units) Date Value 06/05/2021 Negative pH, Urine (no units) Date Value 06/05/2021 6.0 Protein, Urine (no units) Date Value 06/05/2021 Negative Nitrites (no units) Date Value 06/05/2021 Negative WBC, Urine (no units) Date Value 06/05/2021 0-5 /HPF MEDICATIONS: Lancets Test blood sugar(s) 3 times daily. Dx: Type 2 DM - Controlled E11.9 Insulin: Yes blood sugar diagnostic (FREESTYLE LITE STRIPS) test strip Test blood sugar(s) 3 times daily. Dx: Type 2 DM - Controlled E11.9. Insulin: Yes. tirzepatide (MOUNJARO) 15 mg/0.5 mL pen injector Inject 15 mg subcutaneously one time a week. metFORMIN ER (GLUCOPHAGE XR) 500 mg 24 hr tablet Take 2 tablets by mouth two times a day with meals. atorvastatin (LIPITOR) 40 mg tablet Take 1 tablet by mouth once daily. clopidogrel (PLAVIX) 75 mg tablet Take 1 tablet by mouth once daily. Continue Plavix x one year, following heart attack. folic acid 1 mg tablet Take 1 tablet by mouth once daily. metoprolol tartrate, short acting, (LOPRESSOR) 50 mg tablet Take 1 tablet by mouth every 12 hours. LISINOPRIL ORAL Take 10 mg by mouth. Blood-Glucose Meter (TRUE METRIX AIR GLUCOSE METER) Test blood sugar(s) 3 times daily. Dx: Type 2 DM - Controlled E11.9 Insulin: Yes acetaminophen (TYLENOL) 500 mg tablet Take 2 tablets by mouth four times daily. (Patient taking differently: Take 1,000 mg by mouth two times a day.) Blood Pressure Monitor CHECK vital signs daily or as needed aspirin 81 mg chewable tablet Take 1 tablet by mouth once daily. Take one ASPIRIN daily for life. REVIEW OF SYSTEMS Review of Systems Constitutional: Negative. Respiratory: Negative. Cardiovascular: Negative. Gastrointestinal: Negative. Genitourinary: Negative. Skin: Negative. Neurological: Negative. Psychiatric/Behavioral: Negative. HISTORIES PAST MEDICAL HISTORY Diagnosis Date Arthritis Bladder stones BPH (benign prostatic hyperplasia) CAD (coronary artery disease) Cancer (HCC) skin ca History of colon polyps 07/24/2013 Mixed hyperlipidemia Prostate cancer (HCC) Type 2 diabetes mellitus, without long-term current use of insulin (HCC) 06/20/2021 FAMILY HISTORY Problem Relation Age of Onset Diabetes Mother Emphysema Father Asbestosis Diabetes Brother Asthma Brother SOCIAL HISTORY Social History Tobacco Use Smoking status: Former Types: Cigarettes Quit date: 07/29/2010 Years since quittin.0 Smokeless tobacco: Never Tobacco comments: years Vaping Use Vaping Use: Never used Substance Use Topics Alcohol use: Yes Comment: rarely Drug use: No PHYSICAL EXAMINATION General appearance: Well appearing, alert, in no acute distress, and well- hydrated, well nourished Skin: Skin color, texture, turgor normal, no suspicious rashes or lesions Respiratory:+ effort Cardiovascular: Not examined GI: Normal abdominal exam, Abdomen soft, non-tender. No masses, organomegaly Musculoskeletal: Negative Neuro: Negative Genitourinary: not examined Impression: (C61) Prostate cancer (HCC) (primary encounter diagnosis) Plan: 6 months Psa prior Rajat العراقي Jr, MD 08/02/2023 documented [facility]24 Miscellaneous Notes* Telephone Encounter - Maxim Naik APRN.CNP - 07/11/2023 10:31 AM EDT The following approved medication requests have been transmitted electronically. Requested Prescriptions Pending Prescriptions Disp Refills blood sugar diagnostic (FREESTYLE LITE STRIPS) test strip 100 Strip 11 Sig: Test blood sugar(s) 3 times daily. Dx: Type 2 DM - Controlled E11.9. Insulin: Yes. Maxim Naik APRN.CNP * Telephone Encounter - Ana Leal LPN - 07/11/2023 10:16 AM EDT SHARA-05/22/23 Labs-07/04/23 NOV-11/30/23 Ana Leal LPN documented in this encounter[facility]03-27-2024 Miscellaneous Notes* Telephone Encounter - Maxim Naik APRN.CNP - 07/11/2023 10:31 AM EDT The following approved medication requests have been transmitted electronically. Requested Prescriptions Pending Prescriptions Disp Refills Lancets 100 Each 11 Sig: Test blood sugar(s) 3 times daily. Dx: Type 2 DM - Controlled E11.9 Insulin: Yes Maxim Naik APRN.SHREYA * Telephone Encounter - Ana Leal LPN - 07/11/2023 10:17 AM EDT SHARA-05/22/23 Labs-07/04/23Feb-11/20/23 Ana Leal LPN documented in this encounterMi[facility]03-19-2024 Miscellaneous Notes* Telephone Encounter - Rajat العراقي Jr., MD - 07/03/2023 2:50 PM EDT signed * Telephone Encounter - Sonido Serrano MA - 07/02/2023 2:50 PM EDT PSA pended for upcoming appointment. Sonido Serrano MA documented in this encounterMi[facility]02-19-2024 Miscellaneous Notes* Telephone Encounter - Sierra Resendez Ma - 06/04/2023 5:32 PM EST Pt notified. * Telephone Encounter - Dixon Valadez MD - 06/04/2023 5:28 PM EST He may keep taking the Plavix and aspirin every day Dixon Valadez MD * Telephone Encounter - Analilia Ram Ma - 06/04/2023 2:31 PM EST Should pt take medication tomorrow on the day of procedure and resume next day? Just wanting to clarify before calling pt. Analilia Ram Ma * Telephone Encounter - Dixon Valadez MD - 06/04/2023 2:30 PM EST I do not typically stop Plavix and aspirin for dental procedures Dixon Valadez MD * Telephone Encounter - Maritza Martinez LPN - 06/04/2023 2:01 PM EST Patient calling he has appt tomorrow at 10 am with Dentist to have a tooth extraction done. He is taking 81 mg ASA and generic Plavix, he took his dose of each today. Patient asking if he should be off both medications for few days prior to tooth extraction? Patient said dental office just called him and said check with PCP. Please advise documented in this encounterMi[facility]02-[facility]24 History of Present illness Narrative* Dixon Valadez MD - 05/22/2023 9:00 AM EST Chief Complaint Patient presents with: 6 Month Exam HPI Reginald Vaughn is a 72 year old male who presents here today for 6 month follow up. HM: depression screening: denies feeling depressed or hopeless. Has an advanced directive. No bowel or GI issues. Follows with Urology, Dr. العراقي for prostate cancer. Also follows with radiation oncology Dr. Alyssia Rutledge. S/P radiation tx for 7 weeks. Follows with Derm, ZACHERY Correa. HTN: Taking Lopressor 50 mg 1 pill BID, Lisinopril 10 mg daily. No chest pains, dizziness, or SOB. Follows with Cardio at [facility]. Last echo 01/06 showing mild . Lipid/CAD: Taking Lipitor 40 mg daily and plavix 75 mg daily. Also taking ASA 81 mg daily. Pt will discuss the continuation of Plavix with Organic Preparation Technician. He tries to watch diet. Rides bike when weather is nice and uses a rowing machine. DM: Taking Metformin xr 500 mg 2 pills BID and Mounjaro 15 mg weekly injection. Checking BS 1 x a day with FBS 97-126. No longer following with Endo Dr. Shelton. He denies any hypoglycemic episodes. No neuropathy issues. Gets occ diarrhea from the Metformin but nothing that is an issue at this time. Pain: right knee off and on for a long time, depending on weather. He states that it is stiff in the mornings but gets better as the day goes one. He uses Tylenol 1,000 mg BID. No swelling of the knee. Past medical history, appointments, medications, allergies reviewed. Previous Medical History PAST MEDICAL HISTORY Diagnosis Date Arthritis Bladder stones BPH (benign prostatic hyperplasia) CAD (coronary artery disease) Cancer (HCC) skin ca History of colon polyps 07/24/2013 Mixed hyperlipidemia Prostate cancer (HCC) Type 2 diabetes mellitus, without long-term current use of insulin (HCC) 06/20/2021 Previous Surgical History PAST SURGICAL HISTORY Procedure Laterality Date ARTHROSCOPY KNEE DIAGNOSTIC W/WO SYNOVIAL BX SPX Right 1990 Meniscal tear CABG (4) VEIN GRAFTS & ARTERIAL GRAFT(S) 06/08/2021 COLONOSCOPY FLX DX W/COLLJ SPEC WHEN PFRMD 07/24/2013 Colonoscopy COLONOSCOPY FLX DX W/COLLJ SPEC WHEN PFRMD 09/15/2016 Colonoscopy COLSC FLX W/RMVL OF TUMOR POLYP LESION SNARE TQ 12/30/2019 PAST SURGICAL HISTORY OF Right 2015 repair biceps tendon ROTATOR CUFF REPAIR Left 04/18/2013 Family History FAMILY HISTORY Problem Relation Age of Onset Diabetes Mother Emphysema Father Asbestosis Diabetes Brother Asthma Brother Patient Allergies ALLERGIES Allergen Reactions Ozempic [Semaglutid* Diarrhea Keflex [Cephalexin] Other: See Comments Joint Pain Current Medications Current Outpatient Medications on File Prior to Visit Medication Sig tirzepatide (MOUNJARO) 15 mg/0.5 mL pen injector Inject 15 mg subcutaneously one time a week. metFORMIN ER (GLUCOPHAGE XR) 500 mg 24 hr tablet Take 2 tablets by mouth two times a day with meals. atorvastatin (LIPITOR) 40 mg tablet Take 1 tablet by mouth once daily. clopidogrel (PLAVIX) 75 mg tablet Take 1 tablet by mouth once daily. Continue Plavix x one year, following heart attack. folic acid 1 mg tablet Take 1 tablet by mouth once daily. metoprolol tartrate, short acting, (LOPRESSOR) 50 mg tablet Take 1 tablet by mouth every 12 hours. Lancets lancets Test blood sugar(s) 3 times daily. Dx: Type 2 DM - Controlled E11.9 Insulin: Yes blood sugar diagnostic (FREESTYLE LITE STRIPS) test strip Test blood sugar(s) 3 times daily. Dx: Type 2 DM - Controlled E11.9. Insulin: Yes. LISINOPRIL ORAL Take 10 mg by mouth. Blood-Glucose Meter (TRUE METRIX AIR GLUCOSE METER) Test blood sugar(s) 3 times daily. Dx: Type 2 DM - Controlled E11.9 Insulin: Yes Blood Pressure Monitor CHECK vital signs daily or as needed aspirin 81 mg chewable tablet Take 1 tablet by mouth once daily. Take one ASPIRIN daily for life. acetaminophen (TYLENOL) 500 mg tablet Take 2 tablets by mouth four times daily. (Patient taking differently: Take 1,000 mg by mouth two times a day.) No current facility-administered medications on file prior to visit. Social History Social History Tobacco Use Smoking status: Former Types: Cigarettes Quit date: 07/29/2010 Years since quittin.8 Smokeless tobacco: Never Tobacco comments: years Vaping Use Vaping Use: Never used Substance Use Topics Alcohol use: Yes Comment: rarely Drug use: No EXAM: BP 128/70 Pulse 78 Resp 16 Wt 113.4 kg (250 lb) BMI 36.92 kg/m General Appearance: Well appearing, alert, in no acute distress, well-hydrated, well nourished. andOverweight. Lungs: Lungs clear to auscultation. No wheezing, rhonchi, rales.. Heart: RRR with systolic murmur Health Maintenance List Abdominal Aortic Aneurysm Screening Never done Shingrix Vaccine(1 of 2) Never done LDL Cholesterol due on 07/23/2021 HbA1C due on 10/29/2022 Urine Albumin:Creatinine Ratio due on 12/31/2022 Advance Directive Discussion due on 04/16/2023 Depression Assessment due on 04/16/2023 Dilated Retinal Exam due on 09/06/2023 Diabetic Foot Exam due on 11/19/2023 Annual PCP Team Chronic Disease Visit due on 02/06/2024 Colorectal Cancer Screening due on 12/29/2024 DTaP,Tdap,Td Vaccine(2 - Td or Tdap) due on 05/24/2027 Influenza Vaccine Completed RSV Vaccine Completed Covid-19 Vaccine Completed Pneumococcal Vaccine: 65+ Completed Hepatitis C Screening Addressed HPV Vaccine Aged Out Data reviewed Appointment on 05/21/2023 Component Date Value Protein, Total 05/21/2023 6.3 Albumin 05/21/2023 4.0 Calcium, Total 05/21/2023 9.2 Bilirubin, Total 05/21/2023 0.3 Alkaline Phosphatase 05/21/2023 76 AST 05/21/2023 20 ALT 05/21/2023 13 Glucose 05/21/2023 124 (H) BUN 05/21/2023 17 Creatinine 05/21/2023 0.82 Sodium 05/21/2023 143 Potassium 05/21/2023 4.2 Chloride 05/21/2023 107 (H) CO2 05/21/2023 24 Anion Gap 05/21/2023 12 Estimated Glomerular Colin* 05/21/2023 93 Cholesterol, Total 05/21/2023 158 Triglyceride 05/21/2023 138 HDL Cholesterol 05/21/2023 36 (L) Non HDL Cholesterol 05/21/2023 122 Fasting Time 05/21/2023 11 VLDL Cholesterol 05/21/2023 28 TC:HDL Ratio 05/21/2023 4.39 LDL Cholesterol 05/21/2023 94 LDL:HDL Ratio 05/21/2023 2.61 (H) Hemoglobin A1C 05/21/2023 4.9 Estimated Average Glucose 05/21/2023 94 WBC 05/21/2023 5.81 RBC 05/21/2023 4.41 Hemoglobin 05/21/2023 13.1 Hematocrit 05/21/2023 40.5 MCV 05/21/2023 91.8 MCH 05/21/2023 29.7 MCHC 05/21/2023 32.3 RDW-CV 05/21/2023 13.1 Platelet Count 05/21/2023 205 MPV 05/21/2023 10.0 Absolute nRBC 05/21/2023 <0.01 ASSESSMENT/PLAN: 1. Type 2 diabetes mellitus with other specified complication, without long-term current use of insulin ([facility]) - ICD9: 250.80, ICD10: E11.69 (primary diagnosis) - Controlled - Continue current medications - Counseled on healthy diet and regular exercise - Discussed need for and benefit of weight loss. BMI 36.92 kg/(m^2) 2. Mixed hyperlipidemia - ICD9: 272.2, ICD10: E78.2 - Controlled - Continue current medications - Counseled on healthy diet and regular exercise - Discussed need for and benefit of weight loss. BMI 36.92 kg/(m^2) 3. Coronary artery disease involving navajo coronary artery of navajo heart without angina pectoris- ICD9: 414.01, ICD10: I25.10 Continue current medications. Continue with Cardio 4. NSTEMI (non-ST elevated myocardial infarction) ([facility]) - ICD9: 410.70, ICD10: I21.4 Continue current medications. Continue with Cardio 5. Prostate cancer ([facility]) - ICD9: 185, ICD10: C61 Continue with Urologist 6. Obesity, Class II, BMI 35-39.9 - ICD9: 278.00, ICD10: E66.9 Recommend watching diet and exercise 7. Acute pain of right knee - ICD9: 719.46, ICD10: M25.561 Continue with Tylenol May use heat or ice 8. Aortic stenosis Follow with Cardiology Follow up in 6 months with fasting labs and urine test prior. I agree with the Chief Complaint, ROS, and Past Histories independently gathered by the clinical it application support analyst and the remaining scribed note accurately describes my personal service to the patient. Medical Decision Making: Problems: Moderate: 2+ stable chronic illnesses Data: Unique test result(s) reviewed: 3+ Unique test(s) ordered: 3+ Risk: Moderate: Drug management Medical Decision Making Level: 4 - Moderate Dixon Valadez MD The documentation for this note was completed by Sierra Resendez Ma acting as scribe for Dixon Valadez MD. May 22, 2023 8:50 AM. Sierra Resendez Ma documented in this encounterMi[facility]10-27-2023 Miscellaneous Notes* Telephone Encounter - Wilma Dugan OCCA - 02/09/2023 3:02 PM EDT TC to patient who verbalized understanding of message below. Nothing further at this time. JOSE FRANCISCO Suárez * Telephone Encounter - Dixon Valadez MD - 02/09/2023 2:38 PM EDT OK to refill as ordered Dixon Valadez MD * Telephone Encounter - Mattie Sheehan - 02/09/2023 12:49 PM EDT Patient stated [facility] notified him that he needs a new rx for this medication. * Telephone Encounter - Mattie Sheehan - 02/09/2023 12:48 PM EDT Patient has been identified by name and date of : Yes Requested Prescriptions Pending Prescriptions Disp Refills metFORMIN ER (GLUCOPHAGE XR) 500 mg 24 hr tablet 360 tablet 3 Sig: Take 2 tablets by mouth two times a day with meals. RX INSTRUCTIONS: Patient aware RX escripted to mail away pharmacy. No need to notify patient. Mattie Orlando Pss documented in this encounterMiami [facility] Hospital09-25-2023 Miscellaneous Notes* Telephone Encounter - Sonido Serrano Ma - 01/08/2023 7:59 AM EDT Order pended if needed. Sonido Serrano Ma documented in this encounterMiami [facility] Hospital04-10-2023 Miscellaneous Notes* Telephone Encounter - Dixon Valadez MD - 07/24/2022 7:31 PM EDT OK to refill as ordered Dixon Valadez MD * Telephone Encounter - Carina Crystal Ma - 07/21/2022 4:05 PM EDT Received PA approval for Mounjaro 10 mg/0.5 mL, patient was notified and requesting 90 day supply to mail away. Did add ozempic to allergy list since intolerance Carina Crystal Ma documented in this encounterMiami [facility] Hospital04-06-2023 Miscellaneous Notes* Telephone Encounter - Analilia Ram Ma - 07/20/2022 4:20 PM EDT Call to pt and notified him of message below. Pt states he just wants to know what dosage of Moujarno is equivalent to the dosage of Ozempic he's currently taking. Discussed with PCP, this is 10 mg. Pt was notified. He denied needing a Rx sent in and is discussing with insurance. Appreciated call back. Ozempic causes diarrhea, but states his diet could contribute to this as well. Does well with controlling sugars. Analilia Ram Ma * Telephone Encounter - Dixon Valadez MD - 07/20/2022 4:13 PM EDT I would suggest going back down to the 1 mg dose of Ozempic, to see if he does better on that dose.I am also OK with changing to Mounjaro if his insurance covers that. Dixon Valadez MD * Telephone Encounter - Jhony Tafoya LPN - 07/20/2022 12:02 PM EDT Pt called and he is having a side effect on the Ozempic. He is having diarrhea severe x 1 1/2 days.Pt has contacted his insurance and he is going to start and appeal with them to try get the Mounjaro for his DM. Pt is asking what does he would need to be on. Please call pt with this information and he will contact his insurance. Jhony Tafoya LPN documented in this encounterMiami [facility] Hospital03-23-2023 Miscellaneous Notes* Telephone Encounter - Analilia Ram Ma - 07/06/2022 4:54 PM EDT This has been re-faxed. Analilia Ram Ma * Telephone Encounter - Dixon Valadez MD - 07/06/2022 4:32 PM EDT Form done Dixon Valadez MD * Telephone Encounter - Analilia Ram Ma - 07/06/2022 2:56 PM EDT Form routed back to PCP to review and complete. Fax once completed. Analilia Ram Ma * Telephone Encounter - Cecile Parekh RN - 07/06/2022 2:34 PM EDT Pharmacist with [facility] calls to report forms sent in for Freestyle David Test Strips are marked that patient checks blood sugar once daily and he actually checks three times daily. Please update form to say blood sugar checks are 3 times daily and fax back to [phone]. Cecile Parekh RN documented in this encounterMiami [facility] Hospital03-23-2023 Miscellaneous Notes* Telephone Encounter - Sierra Resendez Ma - 07/06/2022 9:48 AM EDT Form faxed. Sierra Resendez Ma * Telephone Encounter - Dixon Valadez MD - 07/04/2022 5:16 PM EDT Form done Dixon Valadez MD * Telephone Encounter - Analilia Ram Ma - 07/03/2022 11:00 AM EDT Form received and routed to PCP to complete. Once complete fax back to [phone]. Analilia Ram Ma * Telephone Encounter - Analilia Ram Ma - 06/30/2022 4:32 PM EDT Will keep encounter awaiting new form to be faxed into the office. Analilia Ram Ma * Telephone Encounter - Dixon Valadez MD - 06/30/2022 4:31 PM EDT Rx filed Dixon Valadez MD * Telephone Encounter - Analilia Ram Ma - 06/27/2022 4:36 PM EDT Please file pended Rx so we can complete new form. Analilia Ram Ma * Telephone Encounter - Jhony Tafoya LPN - 06/27/2022 4:06 PM EDT Gerardo with [facility] called and he can not change the name on the form from Maxim Naik to Dr. Valadez because Maxim was the one who sent the prescription for the test strips. What can be done is Dr. Valadez will need to send in a new rx for the test strips under his name and then they can geta new form out to Dr. Valadez with his name on the form. Please advise the pharmacy. Jhony Tafoya LPN * Telephone Encounter - Analilia Ram Ma - 06/27/2022 3:06 PM EDT Type of form: Medicare Part D written order regarding Freestyle Lite test strips Form received via fax When form is completed, Fax form to [phone] Form has been forwarded to Physician Desk: Dr. Rory Ram Ma documented in this encounterMiami [facility] Hospital02-21-2023 Miscellaneous Notes* Telephone Encounter - Analilia Ram Ma - 06/06/2022 2:10 PM EST Both forms have been completed and faxed to information below. Analilia Ram Ma * Telephone Encounter - Analilia Ram Ma - 06/05/2022 3:14 PM EST Type of form: CMS signature requirements. Medical Record Signature Attestation Statement Form received via fax When form is completed, Fax form to [phone] Form has been forwarded to Physician Desk: Dr. Valadez. Analilia Ram Ma * Telephone Encounter - Analilia Ram Ma - 06/01/2022 2:17 PM EST Office received forms from Medicare requesting supporting records for Medicare B Pharm Denial/Audit. They are requesting chart/documentation. Please review and advise what you would like sent. Once reviewed, fax back appropriate paperwork to [phone], Shahram [employer] Member. Analilia Ram Ma documented in this encounterMiami Valley Hospital01-19-2023 Miscellaneous Notes* Telephone Encounter - Sierra Resendez Ma - 05/04/2022 1:54 PM EST Advised pt to provide name of medications he is requesting. Sierra Resendez Ma documented in this encounterMiami Valley Hospital01-17-2023 Miscellaneous Notes* Telephone Encounter - Lisa Rivera APRN.CNP - 05/02/2022 9:46 AM EST The following approved medication requests have been transmitted electronically. Requested Prescriptions Signed Prescriptions Disp Refills dulaglutide (TRULICITY) 4.5 mg/0.5 mL pen injector 4 Each 5 Sig: PLEASE UPDATE FOR ANY MEDICATION CHANGE Authorizing Provider: LISA RIVERA APRN.CNP * Telephone Encounter - Ana Leal LPN - 05/02/2022 9:42 AM EST Patient notified of recommendations, verbalizes understanding of instructions. Pt stated to send to [facility] Leal LPN * Telephone Encounter - Lisa Rivera APRN.CNP - 05/02/2022 9:32 AM EST Can you please call the patient and let him know that his pharmacy is currently out of his Trulicity. Can you ask if he is agreeable to let me send his prescription refill over to [facility]? We have noticed locally that they have had this medication in stock. Lisa Rivera APRN.SHREYA * Telephone Encounter - Ana Leal LPN - 04/28/2022 7:00 AM EST Patient phones requesting refills as follows: Pharmacy comment: TRULICITY(4) PEN 4.5/0.5 is mfr backordered. Please note, a prior auth may be required for an alt medication or for a change in dosing. If this is the case you will receive another fax requesting the necessary information for the PA. TRULICITY(4) PEN 4.5/0.5 is mfr backordered. Please note, a prior auth may be required for an alt medication or for a change in dosing. If this is the case you will receive another fax requesting thenecessa. Requested Prescriptions Pending Prescriptions Disp Refills TRULICITY 4.5 mg/0.5 mL pen injector [Pharmacy Med Name: TRULICITY(4) PEN 4.5/0.5] 4 Sig: PLEASE UPDATE FOR ANY MEDICATION CHANGE Please review and advise. Ana Leal LPN documented in this encounterMiami [facility] Hospital01-13-2023 History of Present illness Narrative* Alyssia Rutledge MD - 04/28/2022 8:36 AM EST Radiation Oncology - Follow Up Note PATIENT NAME: Reginald Vaughn PATIENT DIAGNOSIS: 71 year old male with a [id number], stage IIIB, Jennifer score 3+4 = 7, grade group 2, adenocarcinoma of the prostate. Pretreatment PSA 7.85ng/mL. S/p RALP on 02/21/2021. Grade group 2 disease with focal positive margins at the bladder neck. 10% cribriform pattern. 0/2 nodes. Postop PSA from 04/26/2021 =5.81 ng/mL. S/p 6 month Lupron depot on 07/28/21. After reviewing PSMA PET with [employer] med there was a questionable area of recurrence in the prostate bed. MRI showed residual SV tissue but no lymphadenopathy or gross recurrence in the prostate bed. S/p salvage radiotherapy to a dose of 46Gy in 23 fx to the pelvic lymph nodes followed by a boost to the prostate bed to a dose of 24Gy in 12 fx. During each phase of treatment a SIB to the area of questionable recurrence on PSMA PET was delivered to a total dose of 74Gy in 35 fractions. Radiotherapy completed on 12/09/21. INTERVAL HISTORY: The patient comes in today now 5 months after the completion of salvage radiotherapy and he reportshis urinary and bowel habits are now back to baseline. He has an AUA BPH symptom score of 0-1 with an episode of nocturia 1-2 times per month. He does have occasional mild urinary leakage but this isbeen stable since prostatectomy. His SH IM score is 4. ALLERGIES Allergen Reactions Keflex [Cephalexin] Other: See Comments Joint Pain PAST MEDICAL HISTORY Diagnosis Date Arthritis Bladder stones BPH (benign prostatic hyperplasia) CAD (coronary artery disease) Cancer (HCC) skin ca History of colon polyps 07/24/2013 Mixed hyperlipidemia Prostate cancer (HCC) Type 2 diabetes mellitus, without long-term current use of insulin (HCC) 06/20/2021 PAST SURGICAL HISTORY Procedure Laterality Date ARTHROSCOPY KNEE DIAGNOSTIC W/WO SYNOVIAL BX SPX Right 1989 Meniscal tear CABG (4) VEIN GRAFTS & ARTERIAL GRAFT(S) 06/08/2021 COLONOSCOPY FLX DX W/COLLJ SPEC WHEN PFRMD 07/24/2013 Colonoscopy COLONOSCOPY FLX DX W/COLLJ SPEC WHEN PFRMD 09/15/2016 Colonoscopy COLSC FLX W/RMVL OF TUMOR POLYP LESION SNARE TQ 12/30/2019 PAST SURGICAL HISTORY OF Right 2015 repair biceps tendon ROTATOR CUFF REPAIR Left 04/18/2013 Social History Tobacco Use Smoking status: Former Types: Cigarettes Quit date: 07/29/2010 Years since quittin.7 Smokeless tobacco: Never Tobacco comments: years Vaping Use Vaping Use: Never used Substance Use Topics Alcohol use: Yes Comment: rarely Drug use: No COMPLETE REVIEW OF SYSTEMS: Constitutional: Negative for pertinent symptoms. HEENT: Negative for pertinent symptoms. Respiratory: Negative for pertinent symptoms. Cardiac: Negative for pertinent symptoms. Gastrointestinal: Negative for pertinent symptoms. Genitourinary: Negative except as noted in the Interval History. Lymphatic: Negative for pertinent symptoms. Hematologic: Negative for pertinent symptoms. Neuro: Negative for pertinent symptoms. Musculoskeletal: Negative for pertinent symptoms. Skin: Negative for pertinent symptoms. PHYSICAL EXAM: VS: BP 141/89 Pulse 86 Wt 108.8 kg (239 lb 12.8 oz) SpO2 98% BMI 34.90 kg/m KPS: 90 General Appearance: Alert and oriented. No acute distress. HEENT: NCAT. Sclera anicteric. PERRL. EOMI. Chest: No respiratory distress. Lungs clear to auscultation bilaterally. Heart: Regular rate and rhythm. Musculoskeletal: No edema. No bone or spine tenderness. Neuro: Speech fluent. Gait normal. No focal motor or sensory deficits. Skin: No rashes noted. Lymphatics: No palpable lymphadenopathy. Hematologic: No signs of active bleeding. RADIOLOGY/LABORATORY DATA: See the HPI. ASSESSMENT AND PLAN: The patient is 71-year-old male now 5 months status post salvage radiotherapy for a nondisappearingPSA and questionable gross recurrence after radical prostatectomy for prostate cancer. The patient has recovered from the acute effects of radiotherapy as expected and he has no evidenceof chronic effects. I note that he is getting his PSA checked today and will follow up with urologyin June. Given his history of coronary artery disease I would not recommend additional engine deprivation therapy past 6 months. We discussed the appropriate schedule for surveillance as well as the signs and symptoms of possible chronic effects from radiotherapy and he knows to contact my office should he develop any of these. He will follow-up with my office virtually in 8 months, sooner if necessary. Thank you for allowing me to participate in the care of this patient, Alyssia Rutledge MD cc: Dixon Valadez [address] [place] [address] Rajat العراقي [address] [facility] [id number] documented in this [facility]01[facility]23 Nurse Note* Jacquelyn Negrete RN - 04/28/2022 8:26 AM EST Reason for visit: follow up following radiation therapy Pt identified by name and date of : Yes Latex allergy:no Is the patient having any pain? None. 0 on a scale of 0 to 10. Dysuria: none Urinary urgency/frequency: None Urinary retention: None Pelvic Pain: none Rectal Pain: none Rectal Bleeding: none Bowel Movements: NORMAL BOWEL MOVEMENTS Fatigue: none Current medications verified with patient. Last 6 Encounter Wt Readings: Date: Wt: 01/04/2022 100.2 kg (221 lb) 12/30/2021 100.2 kg (221 lb) 12/07/2021 105.7 kg (233 lb) 12/02/2021 106.5 kg (234 lb 12.8 oz) 11/30/2021 106.1 kg (234 lb) 11/25/2021 105.2 kg (232 lb) Do you want to see a Visitor Service Assistant? No Any concerns about safety in the home/falls: Not at risk for falls Difficulty performing or completing routine daily living activities: No Concerns about physical or emotional abuse: No Jacquelyn Negrete RN documented in this encounterMi[facility]01-12-2023 Miscellaneous Notes* Telephone Encounter - Analilia Ram Ma - 04/27/2022 3:37 PM EST Pt notified via hoohbe this was completed. Analilia Ram Ma * Telephone Encounter - Dixon Valadez MD - 04/27/2022 3:28 PM EST Rxs done Dixon Valadez MD * Telephone Encounter - Ritu Yang RN - 04/27/2022 3:08 PM EST Patient calls and states that he just switched insurances and now mail order has to go through [facility]. Patient asking for new prescriptions to be sent there. Ritu Yang RN documented in this encounterMiami [facility]01-03-2023 Miscellaneous Notes* Telephone Encounter - Analilia Ram Ma - 04/18/2022 4:10 PM EST Form completed and faxed to information below. Analilia Ram Ma * Telephone Encounter - Analilia Ram Ma - 04/18/2022 11:06 AM EST Type of form: Detailed written order Form received via fax When form is completed, Fax form to Fax to [phone] Form has been forwarded to Physician Desk: Dr. Rory Ram Ma documented in this encounterMi[facility]12-09-2022 Miscellaneous Notes* Telephone Encounter - Analilia Ram Ma - 03/24/2022 4:42 PM EST Form completed and faxed to number on form. Analilia Ram Ma * Telephone Encounter - Hipolito Luong LPN - 03/24/2022 11:04 AM EST Patient has been identified by name and date of : Yes Type of form: Detailed Written Order Form received via: Fax When form is completed, fax form to fax number provided. Form has been forwarded to: Provider's desk. Provider name: Dr. Rory Luong LPN documented in this encounterMiami [facility]12-08-2022 Miscellaneous Notes* Telephone Encounter - Analilia Ram Ma - 03/23/2022 8:55 AM EST Pt notified via hoohbe, this has been completed as requested. Analilia Ram Ma * Telephone Encounter - Dixon Valadez MD - 03/23/2022 8:29 AM EST Order filed Dixon Valadez MD * Telephone Encounter - Carina Crystal Ma - 03/22/2022 10:58 AM EST Please resend lancets to [facility] , patient [facility] not use [facility] Pended correctly Carina Crystal Ma documented in this [facility]12-07-2022 Miscellaneous Notes* Telephone Encounter - Jhony Tafoya LPN - 03/22/2022 8:31 AM EST Records show a valid rx at [facility]. Jhony Tafoya LPN documented in this [facility]12-06-2022 Miscellaneous Notes* Telephone Encounter - Dixon Valadez MD - 03/21/2022 3:39 PM EST OK to refill as ordered Dixon Valadez MD documented in this [facility]11-11-2022 Miscellaneous Notes* Telephone Encounter - PRISCA Link - 02/24/2022 11:01 AM EST Patient phones requesting refills as follows: Requested Prescriptions Pending Prescriptions Disp Refills atorvastatin (LIPITOR) 40 mg tablet 90 tablet 3 Sig: Take 1 tablet by mouth once daily. Was done yesterday but sent to wrong pharmacy, correct pharmacy is [facility]. Please review and advise. PRISCA Link documented in this encounterMiami [facility]11-11-2022 Miscellaneous Notes* Telephone Encounter - Maxim Naik APRN.CNP - 02/24/2022 9:19 AM EST The following approved medication requests have been transmitted electronically. Requested Prescriptions Signed Prescriptions Disp Refills dulaglutide (TRULICITY) 4.5 mg/0.5 mL pen injector 12 Each 4 Sig: Inject 4.5 mg subcutaneously one time a week. Maxim Naik APRN.CNP documented in this [facility]11-02-2022 Miscellaneous Notes* Telephone Encounter - Maxim Naik APRN.CNP - 02/15/2022 10:06 AM EDT The following approved medication requests have been transmitted electronically. Requested Prescriptions Pending Prescriptions Disp Refills clopidogrel (PLAVIX) 75 mg tablet 90 tablet 3 Sig: Take 1 tablet by mouth once daily. Continue Plavix x one year, following heart attack. Maxim Naik APRN.CNP * Telephone Encounter - Christina Pearson LPN - 02/15/2022 9:32 AM EDT Pt requesting new Rx for med as his mail order pharmacy has changed. SHARA: 12/30/21 NOV: 06/09/22 Last Refill: 06/13/21 #90 3 refills Christina Pearson LPN documented in this [facility]10-19-2022 Miscellaneous Notes* Telephone Encounter - Analilia Ram Ma - 02/01/2022 11:16 AM EDT Form completed and faxed back to [phone]. Pt notified via hoohbe. Analilia Ram Ma * Telephone Encounter - Dixon Valadez MD - 01/31/2022 6:19 PM EDT Form done Dixon Valadez MD * Telephone Encounter - Analilia Ram Ma - 01/31/2022 4:56 PM EDT Update pt via hoohbe once this has been completed by PCP. Open mychart encounter currently. Analilia Ram Ma * Telephone Encounter - Analilia Ram Ma - 01/31/2022 1:21 PM EDT Office just received a form from Medicare B written order from Dudley Delgado. Routed to Provider to review and complete. Once completed will fax back. Notified pt via hoohbe. Analilia Ram Ma * Telephone Encounter - Analilia Ram Ma - 01/31/2022 11:38 AM EDT Nothing has been received in office. Will continue to monitor for paperwork. Analilia Ram Ma * Telephone Encounter - Ritu Yang RN - 01/31/2022 11:04 AM EDT Patient calls and states that Dudley garibay faxed over paperwork for free style test strips that patient is asking provider to fill out and fax back. Patient is having problems with medicare part B. Patient is out of test strips currently. Please review and advise, Ritu Yang RN documented in this encounterMiami [facility]10-17-2022 History of Present illness Narrative* TIM Garcia - 01/30/2022 3:41 PM EDT TIM re-faxed LTD paperwork on today's date. documented in this encounterMiami [facility] Hospital10-13-2022 Miscellaneous Notes* Telephone Encounter - Sierra Resendez Ma - 01/26/2022 2:03 PM EDT The following approved medication requests have been transmitted electronically. Requested Prescriptions Signed Prescriptions Disp Refills folic acid 1 mg tablet 90 tablet 3 Sig: Take 1 tablet by mouth once daily. Authorizing Provider: DIXON VALADEZ Ma * Telephone Encounter - Dixon Valadez MD - 01/26/2022 1:31 PM EDT OK to refill as ordered Dixon Valadez MD * Telephone Encounter - Jhony Tafoya LPN - 01/26/2022 10:08 AM EDT Pt states folic acid sen to the wrong pharmacy. Needs to go to [facility]. Patient has been identified by name and date of : Yes Patient phones for refill(s): Requested Prescriptions Pending Prescriptions Disp Refills folic acid 1 mg tablet 90 tablet 3 Sig: Take 1 tablet by mouth once daily. Date of last office visit in primary care: 12/30/21 next apt 06/09/22 Last 2 Encounter Wt Readings: Date: Wt: 01/04/2022 100.2 kg (221 lb) 12/30/2021 100.2 kg (221 lb) Previous labs/tests for medication: Not applicable Thank you. Jhony Tafoya LPN documented in this [facility]10-05-2022 Miscellaneous Notes* Telephone Encounter - Analilia Ram Ma - 01/18/2022 10:03 AM EDT See pt message. Pended Rx for both places. Update pt once complete via [employer]. Analilia Ram Ma documented in this [facility]10-05-2022 Miscellaneous Notes* Telephone Encounter - Analilia Ram Ma - 01/18/2022 8:19 AM EDT See pt message and advise. Analilia Ram Ma documented in this [facility]10-04-2022 Miscellaneous Notes* Telephone Encounter - Maxim Naik APRN.CNP - 01/17/2022 10:44 AM EDT The following approved medication requests have been transmitted electronically. Requested Prescriptions Signed Prescriptions Disp Refills blood sugar diagnostic (FREESTYLE LITE STRIPS) test strip 100 Strip 11 Sig: Test blood sugar(s) 3 times daily. Dx: Type 2 DM - Controlled E11.9. Insulin: Yes. Maxim Naik APRN.SHREYA * Telephone Encounter - Analilia Ram Ma - 01/17/2022 8:21 AM EDT Having pt confirm which strips he's using before forwarding on message. Analilia Ram Ma documented in this [facility]10-03-2022 Miscellaneous Notes* Telephone Encounter - Maxim Naik APRN.CNP - 01/16/2022 1:14 PM EDT The following approved medication requests have been transmitted electronically. Requested Prescriptions Pending Prescriptions Disp Refills Lancets lancets 100 Each 11 Sig: Test blood sugar(s) 3 times daily. Dx: Type 2 DM - Controlled E11.9 Insulin: Yes Maxim Naik APRN.CNP documented in this encounterMiami [facility] Hospital09-28-2022 Miscellaneous Notes* Telephone Encounter - Analilia Ram Ma - 01/11/2022 3:01 PM EDT Call to pt and made him aware of Forms being completed. Pt requesting Office to fax into number on form. F#:[phone]. Pt is also requesting a copy be scanned into his chart and mailed to his homeaddress that was verified. This has been completed. Analilia Ram Ma * Telephone Encounter - Dixon Valadez MD - 01/11/2022 2:42 PM EDT Form done Dixon Valadez MD * Telephone Encounter - Analliia Ram Ma - 01/11/2022 12:29 PM EDT Received in office, routed to PCP. States these have to be completed by tomorrow. Analilia Ram Ma * Telephone Encounter - Elyse Solorzano LPN - 01/11/2022 9:48 AM EDT Patient brought forms. States that he has to have them turned back in tomorrow. States that once complete they can be faxed and then he will scrap picker the copy. Form put on nurses desk in office. documented in this encounterMiami [facility] Hospital09-23-2022 History of Present illness Narrative* Rajat العراقي Jr., MD - 01/06/2022 1:00 PM EDT ESTABLISHED PATIENT OFFICE VISIT HPI Reginald Vaughn is a 71 year old male who presents sp turp 07/29. 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 Voiding. pvr 524. ua +. 09/03/20: Office cysto with well resected prostatic fossa 09/29/20 - Had UDS on 09/23. Showed GOLDMAN. Was able to void 250cc of 500. Feels like getting sensation back. No more gross hematuria. No flank pain. 11/03/20: Had CIC teaching after last visit (16 Coude BID). - pvr's still 500+. Path discussed todayfrom turp 12/08/2020: Patient still straight cathing BID. Is getting out some sediment at the end of catheterizations. No recent UTIs. Intermittent hematuria which is mild. He is able to void in between catheterizations and believes this is improving. Had CT pelvis and bone scan which were negative for metastatic disease. Has not had recent PSA. 02/09/21: doing well. Has continued to self cath bid in the morning and night. Catheter was placed today and urine culture sent. Finished course of bactrim yesterday and refilled new script. Denies any current issues. 03/24/21 - cath out today. cath'd easily. 04/01/2021 - S/p RALP and PLND on 02/21/2021. Catheter was removed on 03/24/2021. Patient began having R scrotal pain on 03/25. Went to ED and was diagnosed with UTI and had scrotal US which demonstrated R epididymo-orchitis. He was started on abx and kept in holding for ~48 hours. Patient believes he is slowly improving. He still has R scrotal swelling but this seems to be improving. He still has 7 days remaining of levofloxacin. No fevers or chills. He had hirsch catheter inserted while inpatient due to the swelling and inability to straight cath. 04/14/21 - r epididymo-orchitis much improved. Still on abx 04/28/21 - post op psa 5.81. cathing for very small amounts. Nearly continent. 07/28/21 - since last seen had NSTEMI. Got cabg x4. Much improved. In retention at the time. Voidingok now. Nearly continent. psa 07/05 4.49. received lupron x 6 months today. Decipher low risk. Score0.41. will get radiation. 01/04/22 - since last seen had uti. Still cathing once a week. Amounts are minimal. Voiding well. Luts controlled. Incontinence controlled. Done with xrt. No recent psa. Got one lupron. Not supposed to get anymore LAB: Creatinine Date Value Ref Range Status 06/12/2021 0.95 0.73 - 1.22 mg/dL Final PSA (ng/mL) Date Value 06/27/2021 4.49 04/26/2021 5.81 12/08/2020 7.85 Glucose, Urine (no units) Date Value 06/05/2021 Negative Bilirubin, Urine (no units) Date Value 06/05/2021 Negative Ketones, Urine (no units) Date Value 06/05/2021 Negative Specific [place], Ur (no units) Date Value 06/05/2021 1.012 Hemoglobin/Blood,Ur (no units) Date Value 06/05/2021 Negative pH, Urine (no units) Date Value 06/05/2021 6.0 Protein, Urine (no units) Date Value 06/05/2021 Negative Nitrites (no units) Date Value 06/05/2021 Negative WBC, Urine (no units) Date Value 06/05/2021 0-5 /HPF MEDICATIONS: dulaglutide (TRULICITY) 0.75 mg/0.5 mL pen injector^Inject 3 mg subcutaneously one time a week. Inject dose once per week. Discard Pen After^Disp: ^Rfl: blood sugar diagnostic (TRUE METRIX GLUCOSE TEST STRIP) test strip^Test blood sugar(s) 3 times daily. Dx: Type 2 DM - Controlled E11.9 Insulin: Yes^Disp: 100 Strip^Rfl: 11 LISINOPRIL ORAL^Take 10 mg by mouth.^Disp: ^Rfl: metFORMIN ER (GLUCOPHAGE XR) 500 mg 24 hr tablet^Take 2 tablets by mouth twice daily with meals.^Disp: 60 tablet^Rfl: 0 metoprolol tartrate, short acting, (LOPRESSOR) 25 mg tablet^Take 2 tablets by mouth every 12 hours.^Disp: 180 tablet^Rfl: 1 atorvastatin (LIPITOR) 40 mg tablet^Take 1 tablet by mouth once daily.^Disp: 90 tablet^Rfl: 1 folic acid 1 mg tablet^Take 1 tablet by mouth once daily.^Disp: 90 tablet^Rfl: 1 Lancets lancets^Test blood sugar(s) 3 times daily. Dx: Type 2 DM - Controlled E11.9 Insulin: Yes^Disp: 100 Each^Rfl: 11 Blood-Glucose Meter (TRUE METRIX AIR GLUCOSE METER)^Test blood sugar(s) 3 times daily. Dx: Type 2 DM - Controlled E11.9 Insulin: Yes^Disp: 1 Each^Rfl: 0 clopidogrel (PLAVIX) 75 mg tablet^Take 1 tablet by mouth once daily. Continue Plavix x one year, following heart attack.^Disp: 90 tablet^Rfl: 3 acetaminophen (TYLENOL) 500 mg tablet^Take 2 tablets by mouth four times daily.^Disp: 28 tablet^Rfl: 0 Blood Glucose Control, Normal soln^1 Bottle as directed.^Disp: 1 Each^Rfl: 1 Blood Pressure Monitor^CHECK vital signs daily or as needed^Disp: 1 Kit^Rfl: 0 aspirin 81 mg chewable tablet^Take 1 tablet by mouth once daily. Take one ASPIRIN daily for life.^Disp: 90 tablet^Rfl: 2 REVIEW OF SYSTEMS Review of Systems Constitutional: Negative. Respiratory: Negative. Cardiovascular: Negative. Gastrointestinal: Negative. Genitourinary: Negative. Skin: Negative. Neurological: Negative. Psychiatric/Behavioral: Negative. HISTORIES PAST MEDICAL HISTORY Diagnosis Date Arthritis Bladder stones BPH (benign prostatic hyperplasia) CAD (coronary artery disease) Cancer (HCC) skin ca History of colon polyps 07/24/2013 Mixed hyperlipidemia Prostate cancer (HCC) Type 2 diabetes mellitus, without long-term current use of insulin (HCC) 06/20/2021 FAMILY HISTORY Problem Relation Age of Onset Diabetes Mother Emphysema Father Asbestosis Diabetes Brother Asthma Brother SOCIAL HISTORY Social History Tobacco Use Smoking status: Former Types: Cigarettes Quit date: 07/29/2010 Years since quittin.4 Smokeless tobacco: Never Tobacco comments: years Vaping Use Vaping Use: Never used Substance Use Topics Alcohol use: Yes Comment: rarely Drug use: No PHYSICAL EXAMINATION General appearance: Well appearing, alert, in no acute distress, and well- hydrated, well nourished Skin: Skin color, texture, turgor normal, no suspicious rashes or lesions Respiratory:+ effort Cardiovascular: Not examined GI: Normal abdominal exam, Abdomen soft, non-tender. No masses, organomegaly Musculoskeletal: Negative Neuro: Negative Genitourinary: not examined Impression: (C61) Prostate cancer (HCC) (primary encounter diagnosis) Plan: 6 months Psa prior Rajat العراقي Jr, MD 01/06/2022 documented in this encounterMiami [facility] Hospital09-16-2022 Instructions* Patient Instructions* Maxim Naik APRN.CNP - 12/30/2021 2:03 PM EDT Get blood work done, don't worry about the urine sample for urine albumin Continue to drink plenty of fluids No changes to medications, finish antibiotic. Make urologist aware of ongoings. Maxim Naik APRN.CNP documented in this encounterMiami [facility] Hospital09-16-2022 History of Present illness Narrative* Maxim Naik APRN.CNP - 12/30/2021 2:00 PM EDT Chief Complaint Patient presents with: ED Follow-up: [facility] Kidney function HPI Reginald Vaughn is a 71 year old male who presents here today for ER Follow Up.. Patient here for ER follow up. HOSPITAL/ER FOLLOW UP: Reason for visit: Difficulty urinating, blood in his urine after self-cath Which facility: [facility] Date of visit: 12/25/2021 Diagnosis: JOANNA Testing done: Labs: CBC unremarkable. Creatine 2.09, GFR 32, BUN 21; Urine showing leuks, WBCs Treatment given: IV fluids, discharged on Bactrim DS. Current symptoms: At this time, the patient is self-cathing once a week as directed by urologist. He has been self-cathing, no blood with self cath. But noticed some blood on his incontinence pad today. No fevers or chills. No chest pain or shortness of breath. No abdominal pain. Has follow up with urology in January. Past medical history, appointments, medications, allergies reviewed. Previous Medical History PAST MEDICAL HISTORY Diagnosis Date Arthritis Bladder stones BPH (benign prostatic hyperplasia) CAD (coronary artery disease) Cancer (HCC) skin ca History of colon polyps 07/24/2013 Mixed hyperlipidemia Prostate cancer (HCC) Type 2 diabetes mellitus, without long-term current use of insulin (HCC) 06/20/2021 Previous Surgical History PAST SURGICAL HISTORY Procedure Laterality Date ARTHROSCOPY KNEE DIAGNOSTIC W/WO SYNOVIAL BX SPX Right 1989 Meniscal tear CABG (4) VEIN GRAFTS & ARTERIAL GRAFT(S) 06/08/2021 COLONOSCOPY FLX DX W/COLLJ SPEC WHEN PFRMD 07/24/2013 Colonoscopy COLONOSCOPY FLX DX W/COLLJ SPEC WHEN PFRMD 09/15/2016 Colonoscopy COLSC FLX W/RMVL OF TUMOR POLYP LESION SNARE TQ 12/30/2019 PAST SURGICAL HISTORY OF Right 2015 repair biceps tendon ROTATOR CUFF REPAIR Left 04/18/2013 Family History FAMILY HISTORY Problem Relation Age of Onset Diabetes Mother Emphysema Father Asbestosis Diabetes Brother Asthma Brother Patient Allergies ALLERGIES Allergen Reactions Keflex [Cephalexin] Other: See Comments Joint Pain Current Medications Current Outpatient Medications on File Prior to Visit Medication Sig dulaglutide (TRULICITY) 0.75 mg/0.5 mL pen injector Inject 3 mg subcutaneously one time a week. Inject dose once per week. Discard Pen After blood sugar diagnostic (TRUE METRIX GLUCOSE TEST STRIP) test strip Test blood sugar(s) 3 times daily. Dx: Type 2 DM - Controlled E11.9 Insulin: Yes LISINOPRIL ORAL Take 10 mg by mouth. metFORMIN ER (GLUCOPHAGE XR) 500 mg 24 hr tablet Take 2 tablets by mouth twice daily with meals. metoprolol tartrate, short acting, (LOPRESSOR) 25 mg tablet Take 2 tablets by mouth every 12 hours. atorvastatin (LIPITOR) 40 mg tablet Take 1 tablet by mouth once daily. folic acid 1 mg tablet Take 1 tablet by mouth once daily. Lancets lancets Test blood sugar(s) 3 times daily. Dx: Type 2 DM - Controlled E11.9 Insulin: Yes Blood-Glucose Meter (TRUE METRIX AIR GLUCOSE METER) Test blood sugar(s) 3 times daily. Dx: Type 2 DM - Controlled E11.9 Insulin: Yes clopidogrel (PLAVIX) 75 mg tablet Take 1 tablet by mouth once daily. Continue Plavix x one year, following heart attack. Blood Pressure Monitor CHECK vital signs daily or as needed aspirin 81 mg chewable tablet Take 1 tablet by mouth once daily. Take one ASPIRIN daily for life. acetaminophen (TYLENOL) 500 mg tablet Take 2 tablets by mouth four times daily. Blood Glucose Control, Normal soln 1 Bottle as directed. Current Facility-Administered Medications on File Prior to Visit Medication sodium chloride 0.9 % (flush) 10 mL (BD POSIFLUSH) Social History Social History Tobacco Use Smoking status: Former Types: Cigarettes Quit date: 07/29/2010 Years since quittin.4 Smokeless tobacco: Never Tobacco comments: years Vaping Use Vaping Use: Never used Substance Use Topics Alcohol use: Yes Comment: rarely Drug use: No REVIEW OF SYSTEMS: as above Reviewed relevant PMHx, PSHx, Social Hx, current medications and allergies. EXAM: BP 96/58 Pulse 84 Resp 16 Wt 100.2 kg (221 lb) BMI 32.17 kg/m General Appearance: Well appearing, alert, in no acute distress, well-hydrated, well nourished.. Lungs: Lungs clear to auscultation. No wheezing, rhonchi, rales.. Heart: RRR without murmur, gallop, or rubs. No ectopy. Abdomen: Normal abdominal exam, Abdomen soft, non-tender. Bowel sounds normal. No masses, organomegaly. Health Maintenance List ABDOMINAL AORTIC ANEURYSM SCREENING Never done URINE ALBUMIN:CREATININE RATIO Never done DILATED RETINAL EXAM Never done DIABETIC FOOT EXAM Never done SHINGRIX VACCINE(1 of 2) Never done PNEUMOCOCCAL: 65+(2 - PPSV23 or PCV20) due on 05/24/2018 COVID-19 VACCINE(4 - Booster for Moderna series) due on 07/22/2021 LDL CHOLESTEROL due on 07/23/2021 HBA1C due on 12/04/2021 INFLUENZA(1) due on 12/15/2021 DEPRESSION SCREENING due on 09/01/2022 ANNUAL PCP TEAM CHRONIC DISEASE VISIT due on 12/02/2022 COLORECTAL CANCER SCREENING due on 12/29/2024 DTAP,TDAP,TD(2 - Td or Tdap) due on 05/24/2027 ADVANCE DIRECTIVE DISCUSSION Completed HEPATITIS C SCREENING Addressed Data reviewed [facility] ER labs. ASSESSMENT/PLAN: 1. Type 2 diabetes (HCC) - ICD9: 250.00, ICD10: E11.9 (primary diagnosis) Controlled. - Continue current medications 2. JOANNA (acute kidney injury) (HCC) - ICD9: 584.9, ICD10: N17.9 - Recheck CMP today. Likely secondary to obstructive pattern of urinary output. Likely creatinine will be better with improvement of urination. - Encouraged patient to reach out to urologist to update on ongoing situations. Maxim Naik APRN.CNP This note was partly generated using Reach[employer] voice recognition dictation and may contain some misspelled or inaccurate words missed on review. documented in this encounterMiami [facility]09-16-2022 History of Present illness Narrative* TIM Garcia - 12/30/2021 10:44 AM EDT Additional LTD paperwork was received for pt. TIM faxed completed paperwork to [facility] on today's date. documented in this encounterMiami [facility]09-12-2022 Miscellaneous Notes* Telephone Encounter - Kiana Bonilla APRN.CNP - 12/26/2021 4:35 PM EDT Called pt and went over his CT chest review by Dr. Peng who recommend to repeat CT scan again in 1 yr and to refer pt to a railway track worker for follow up on the lung nodule(s). Kiana Bonilla APRN.CNP documented in this encounterMiami [facility] Hospital09-01-2022 History of Present illness Narrative* Alyssia Espinosa, RT(R) - 12/15/2021 11:40 AM EDT Radiology Service Progress Note PATIENT NAME: Reginald Vaughn DATE OF SERVICE: December 15, 2021 TIME: 11:45 AM PATIENT IDENTITY VERIFICATION COMPLETED USING TWO (2) IDENTIFIERS: Name and Date of confirmedby patient verbally. FALL SCREENING: Has the patient had 2 falls in the last year or 1 fall with injury or currently using an Ambulatory Assistive Device (Walker, Cane, Wheelchair, Crutches, etc.)? No PATIENT GENDER DATA: Male PATIENT RELEVANT IMPLANT DATA REVIEWED: Not Applicable RADIOLOGY DEPARTMENT: CT; Exam(s) Completed: Chest PERIPHERAL IV DATA: Not applicable SIGNED BY: Alyssia Espinosa, RT(R) December 15, 2021 11:45 AM documented in this encounterMiami Valley Hospital08-31-2022 History of Present illness Narrative* Alyssia Rutledge MD - 12/14/2021 12:00 AM EDT REGINALD VAUGHN [id number] 12/14/2021 [facility] Department of Radiation Oncology RADIATION ONCOLOGY: COMPLETION NOTE DATE OF SIMULATION: 08/29/21 DATES OF TREATMENT: 10/24/2021 to 12/09/2021 TREATMENT MACHINE: Weilos TREATMENT AREA: prostate bed , whole pelvis DIAGNOSIS: 71 year old male with a [id number], stage IIIB, Jennifer score 3+4 = 7, grade group 2, adenocarcinoma of the prostate. Pretreatment PSA 7.85ng/mL. S/p RALP on 02/21/2021. Grade group 2 disease with focal positive margins at the bladder neck. 10% cribriform pattern. 0/2 nodes. Postop PSA from 04/26/2021 =5.81 ng/mL. S/p 6 month Lupron depot on 07/28/21. After reviewing PSMA PET with [employer] there was a questionable area of recurrence in the prostate bed. MRI showed residual SV tissue but no lymphadenopathy or gross recurrence in the prostate bed. S/p salvage radiotherapy to a dose of 46Gy in 23 fx to the pelvic lymph nodes followed by a boost to the prostate bed to a dose of 24Gy in 12 fx. During each phase of treatment a SIB to the area of questionable recurrence on PSMA PET was delivered to a total dose of 74Gy in 35 fractions. DELIVERED DOSE: The whole pelvis PTV received a total dose of 4600 cGy in 23 fractions at 200 cGy/fraction prescribed to PTV mean at 96.1% IDL using 10 MV photons with VMAT Coplanar technique. The prostate bed PTV received an additional dose of 2400 cGy in 12 fractions at 200 cGy/fraction prescribed to PTV mean at 97.0% IDL using 10 MV photons with VMAT Coplanar technique; the cumulative dose to the PTV was 7000.00 cGy. ELAPSED DAYS: 46 TOLERANCE: At last on-treatment visit, his toxicity was summarized as: Stable mild chronic urinary incontinence, no nocturia. No dysuria. Diarrhea more frequent but improved on immodium. No dermatitis. Mild fatigue. RESPONSE: To be assessed in outpatient clinic. REMARKS: The patient will be seen again in follow up 02/24/22. Survivorship care planning was discussed with the patient. Staff Physician Alyssia Rutledge M.D 24:11 PM documented in this encounterMiami Valley Hospital08-29-2022 Miscellaneous Notes* Telephone Encounter - Sierra Resendez Ma - 12/12/2021 11:55 AM EDT The following approved medication requests have been transmitted electronically. Requested Prescriptions Signed Prescriptions Disp Refills sulfamethoxazole-trimethoprim (BACTRIM DS) 800-160 mg per tablet 20 tablet 0 Sig: Take 1 tablet by mouth twice daily for 10 days. Authorizing Provider: DIXON VALADEZ Ma * Telephone Encounter - Dixon Valadez MD - 12/12/2021 11:37 AM EDT OK to refill as ordered Dixon Valadez MD * Telephone Encounter - Sierra Resendez Ma - 12/12/2021 9:16 AM EDT Should he be getting this from his Urologist? Sierra Resendez Ma documented in this encounterMiami [facility] Hospital08-25-2022 History of Present illness Narrative* TIM Garcia - 12/08/2021 3:22 PM EDT TIM faxed LTD paperwork to [employer]. documented in this encounterMiami Valley Hospital08-24-2022 Nurse Note* Jacobo Hassan RN - 12/07/2021 10:26 AM EDT Radiation Therapy - Nursing Note (OTV) PATIENT NAME: Reginald Vaughn PATIENT December 07, 2021 [facility] FACILITY/LOCATION: [facility] NOTE TYPE: PROSTATE - MALE PELVIS Subjective Data Pt does not have any new side effects Additional Data Do you want to see a Visitor Service Assistant? No Status: Patient is male Stress Scale: On a scale of 0 to 10, what number best describes how much distress you have experienced in the past week?(0 being no distress and 10 being extreme distress) 1 Social work notified: Pt denied need to see social work lecturer at this time. Nursing Assessment Fatigue: none Appetite: good Nutritional Intake: Regular oral intake. Weight Gain/Loss: No Ambulatory weight history: Last 6 Encounter Wt Readings: Date: Wt: 12/07/2021 105.7 kg (233 lb) 12/02/2021 106.5 kg (234 lb 12.8 oz) 11/30/2021 106.1 kg (234 lb) 11/25/2021 105.2 kg (232 lb) 11/23/2021 105.3 kg (232 lb 3.2 oz) 11/23/2021 105.7 kg (233 lb) Nausea:None Vomiting: None Bowel Function: normal bowel movements Erythema/Hyperpigmentation:none Desquamation:none Rash:none Skin Care: None Skin Sensation: Within Normal Limits Focused Assessment PROSTATE - MALE PELVIS: Rectal bleeding: No. Rectal pain: No. Bladder function: frequency. Urinary frequency (D/N): same/same. SIGNED by: Jacobo Hassan RN documented in this encounterMiami Valley Hospital08-24-2022 Instructions* Patient Instructions* Jacobo Hassan RN - 12/07/2021 10:18 AM EDT Images from the original note were not included. Reginald Vaughn 1950 Patient Education General Discharge Instructions Following Radiation Therapy 12/07/2021 You have completed radiation therapy at [facility]. Please make a follow-up appointment on your last day of treatment to see your doctor. Please contact us sooner if you should have any problems prior to your appointment. Reactions to treatment will be most noticeable for up to two weeks after completing therapy. Then the reactions will start to improve. Refer to the handouts for general management of side effects. Below are possible side effects that may occur during the weeks following treatment. If they become unm anageable, even while taking your prescribed medications, you should call our office. Fatigue- pace yourself and get 8 hours of sleep each night Pain at sites being treated- take pain medicine as directed by your doctor Hair loss at treated site only. Diarrhea- continue low residue diet and Imodium AD as directed Constipation- follow written directions given to you Urinary problems- incontinence, burning, increased frequency, trouble getting started, or decreasedflow (take any medication as prescribed) Blood in urine, stool, coughing up or vomiting blood- call our office Continue taking any medications prescribed. There are NO restrictions on your activity, unless directed by your doctor. Doctors are available to answer any questions you may have concerning your treatment. Alyssia Rutledge M.D. Call [phone]. If no answer call [phone]. If you are unable to reach a doctor and you have symptoms that you feel must be evaluated and treated urgently, go to the Emergency Department at [facility]. Patient has verbalized understanding of discharge instructions: YES documented in this encounterMiami Valley Hospital08-24-2022 History of Present illness Narrative* Alyssia Rutledge MD - 12/07/2021 9:53 AM EDT Radiation Oncology - On Treatment Review (OTR) Note PATIENT NAME: Reginald Vaughn PATIENT DIAGNOSIS: 70 year old male with a [id number], stage IIIB, Saint James score 3+4 = 7, grade group 2, adenocarcinoma of the prostate. Pretreatment PSA 7.85ng/mL. S/p RALP on 02/21/2021. Grade group 2 disease with focal positive margins at the bladder neck. 10% cribriform pattern. 0/2 nodes. Postop PSA from 04/26/2021 =5.81 ng/mL. S/p 6 month Lupron depot on 07/28/21. After reviewing PSMA PET with nuc med there was a questionable area of recurrence in the prostate bed . MRI showed residual SV tissue but nolymphadenopathy or gross recurrence in the prostate bed. COURSE: salvage AREA TREATED: pelvis CURRENT DOSE: 6600 cGy in 33 fx PLANNED DOSE: 4600 cGy in 23 fx to the pelvic lymph nodes followed by a conedown to the prostate bed to a dose of 2400 cGy in 12 fx. During each phase of treatment a SIB to the area of questionable recurrence on PSMA PET was delivered to a total dose of 74Gy in 35 fractions. SUBJECTIVE: Stable mild chronic urinary incontinence, no nocturia. No dysuria. Diarrhea more frequent but improved on immodium. No dermatitis. Mild fatigue. EXAM: KPS: 100 General Appearance: Alert and oriented. No acute distress. Radiation dermatitis: No IMAGING/LAB RESULTS: None Treatment chart checked: Yes Patient treatment site reviewed and verified:Yes Port films reviewed and current:Yes Medications started: None ASSESSMENT/PLAN: Clinically stable. Toxicity within expected parameters. Completes radiation today. Alyssia Rutledge MD documented in this encounterMiami Valley Hospital08-17-2022 Nurse Note* Jacobo Hassan RN - 11/30/2021 10:32 AM EDT Radiation Therapy - Nursing Note (OTV) PATIENT NAME: Reginald Vaughn PATIENT November 30, 2021 [facility] FACILITY/LOCATION: [facility] NURSING NOTE TYPE: PROSTATE - MALE PELVIS Subjective Data Pt is experiencing fatigue Additional Data Do you want to see a Visitor Service Assistant? No Status: Patient is male Stress Scale: On a scale of 0 to 10, what number best describes how much distress you have experienced in the past week?(0 being no distress and 10 being extreme distress) 1 Social work notified: Pt denied need to see social work lecturer at this time. Nursing Assessment Fatigue: increased fatigue over baseline but not altering normal activities Appetite: good Nutritional Intake: Regular oral intake. Weight Gain/Loss: No Ambulatory weight history: Last 6 Encounter Wt Readings: Date: Wt: 11/30/2021 106.1 kg (234 lb) 11/25/2021 105.2 kg (232 lb) 11/23/2021 105.3 kg (232 lb 3.2 oz) 11/23/2021 105.7 kg (233 lb) 11/18/2021 106.5 kg (234 lb 12.8 oz) 11/11/2021 107.5 kg (237 lb) Nausea:None Vomiting: None Bowel Function: intermittent diarrhea Erythema/Hyperpigmentation:none Desquamation:none Rash:none Skin Care: None Skin Sensation: Within Normal Limits Focused Assessment PROSTATE - MALE PELVIS: Rectal bleeding: No. Rectal pain: No. Bladder function: no problems. Urinary frequency (D/N): N/1-2. SIGNED by: Jacobo Hassan RN documented in this encounterMiami Valley Hospital08-17-2022 History of Present illness Narrative* Alyssia Rutledge MD - 11/30/2021 9:03 AM EDT Radiation Oncology - On Treatment Review (OTR) Note PATIENT NAME: Reginald Vaughn PATIENT DIAGNOSIS: 70 year old male with a [id number], stage IIIB, Saint James score 3+4 = 7, grade group 2, adenocarcinoma of the prostate. Pretreatment PSA 7.85ng/mL. S/p RALP on 02/21/2021. Grade group 2 disease with focal positive margins at the bladder neck. 10% cribriform pattern. 0/2 nodes. Postop PSA from 04/26/2021 =5.81 ng/mL. S/p 6 month Lupron depot on 07/28/21. After reviewing PSMA PET with nuc med there was a questionable area of recurrence in the prostate bed . MRI showed residual SV tissue but nolymphadenopathy or gross recurrence in the prostate bed. COURSE: salvage AREA TREATED: pelvis CURRENT DOSE: 5600 cGy in 28 fx PLANNED DOSE: 4600 cGy in 23 fx to the pelvic lymph nodes followed by a conedown to the prostate bed to a dose of 2400 cGy in 12 fx. During each phase of treatment a SIB to the area of questionable recurrence on PSMA PET was delivered to a total dose of 74Gy in 35 fractions. SUBJECTIVE: Stable mild chronic urinary incontinence, no nocturia. No dysuria. Diarrhea more frequent but does not require imodium. No dermatitis. Mild fatigue. EXAM: KPS: 100 General Appearance: Alert and oriented. No acute distress. Radiation dermatitis: No IMAGING/LAB RESULTS: None Treatment chart checked: Yes Patient treatment site reviewed and verified:Yes Port films reviewed and current:Yes Medications started: None ASSESSMENT/PLAN: Clinically stable. Toxicity within expected parameters. Continue radiation treatment as planned. Alyssia Rutledge MD documented in this encounterMiami Valley Hospital08-16-2022 Miscellaneous Notes* Telephone Encounter - Maxim Naik APRN.CNP - 11/29/2021 12:26 PM EDT The following approved medication requests have been transmitted electronically. Requested Prescriptions Pending Prescriptions Disp Refills blood sugar diagnostic (TRUE METRIX GLUCOSE TEST STRIP) test strip 100 Strip 11 Sig: Test blood sugar(s) 3 times daily. Dx: Type 2 DM - Controlled E11.9 Insulin: Yes Maxim Naik APRN.CNP * Telephone Encounter - Carina Crystal Ma - 11/29/2021 12:19 PM EDT Patient last visit with PCP 11/23/21 Follow up appointment scheduled 12/02/21 Carina Crystal Ma documented in this encounterMiami [facility] Hospital08-12-2022 History of Present illness Narrative* Carina Baumann PA-C - 11/25/2021 7:52 AM EDT ESTABLISHED PATIENT OFFICE VISIT HISTORY OF PRESENT ILLNESS: Reginald Vaughn is a 71 year old male, Ht 176.5 cm (5' 9.5) BMI 33.77kg/m2 with a PMH significant for scrotal abscess. Pcp has been giving antibiotics, some improvement, but wanted it checked. . LAB: Creatinine Date Value Ref Range Status 06/12/2021 0.95 0.73 - 1.22 mg/dL Final PSA (ng/mL) Date Value 06/27/2021 4.49 04/26/2021 5.81 12/08/2020 7.85 Glucose, Urine (no units) Date Value 06/05/2021 Negative Bilirubin, Urine (no units) Date Value 06/05/2021 Negative Ketones, Urine (no units) Date Value 06/05/2021 Negative Specific [place], Ur (no units) Date Value 06/05/2021 1.012 Hemoglobin/Blood,Ur (no units) Date Value 06/05/2021 Negative pH, Urine (no units) Date Value 06/05/2021 6.0 Protein, Urine (no units) Date Value 06/05/2021 Negative Nitrites (no units) Date Value 06/05/2021 Negative WBC, Urine (no units) Date Value 06/05/2021 0-5 /HPF MEDICATIONS: sulfamethoxazole-trimethoprim (BACTRIM DS) 800-160 mg per tablet^Take 1 tablet by mouth twice dailyfor 10 days.^Disp: 20 tablet^Rfl: 0 LISINOPRIL ORAL^Take 10 mg by mouth.^Disp: ^Rfl: dulaglutide (TRULICITY) 0.75 mg/0.5 mL pen injector^Inject 0.75 mg subcutaneously one time a week. Inject dose once per week. Discard Pen After^Disp: ^Rfl: metFORMIN ER (GLUCOPHAGE XR) 500 mg 24 hr tablet^Take 2 tablets by mouth twice daily with meals.^Disp: 60 tablet^Rfl: 0 metoprolol tartrate, short acting, (LOPRESSOR) 25 mg tablet^Take 2 tablets by mouth every 12 hours.^Disp: 180 tablet^Rfl: 1 atorvastatin (LIPITOR) 40 mg tablet^Take 1 tablet by mouth once daily.^Disp: 90 tablet^Rfl: 1 folic acid 1 mg tablet^Take 1 tablet by mouth once daily.^Disp: 90 tablet^Rfl: 1 SITagliptin (JANUVIA) 100 mg tablet^Take 1 tablet by mouth once daily.^Disp: 90 tablet^Rfl: 1 Lancets lancets^Test blood sugar(s) 3 times daily. Dx: Type 2 DM - Controlled E11.9 Insulin: Yes^Disp: 100 Each^Rfl: 11 Blood-Glucose Meter (TRUE METRIX AIR GLUCOSE METER)^Test blood sugar(s) 3 times daily. Dx: Type 2 DM - Controlled E11.9 Insulin: Yes^Disp: 1 Each^Rfl: 0 blood sugar diagnostic (TRUE METRIX GLUCOSE TEST STRIP) test strip^Test blood sugar(s) 3 times daily. Dx: Type 2 DM - Controlled E11.9 Insulin: Yes^Disp: 100 Strip^Rfl: 11 clopidogrel (PLAVIX) 75 mg tablet^Take 1 tablet by mouth once daily. Continue Plavix x one year, following heart attack.^Disp: 90 tablet^Rfl: 3 Blood Pressure Monitor^CHECK vital signs daily or as needed^Disp: 1 Kit^Rfl: 0 aspirin 81 mg chewable tablet^Take 1 tablet by mouth once daily. Take one ASPIRIN daily for life.^Disp: 90 tablet^Rfl: 2 acetaminophen (TYLENOL) 500 mg tablet^Take 2 tablets by mouth four times daily.^Disp: 28 tablet^Rfl: 0 Blood Glucose Control, Normal soln^1 Bottle as directed.^Disp: 1 Each^Rfl: 1 Review of Systems HISTORIES PAST MEDICAL HISTORY Diagnosis Date Arthritis Bladder stones BPH (benign prostatic hyperplasia) CAD (coronary artery disease) Cancer (HCC) skin ca History of colon polyps 07/24/2013 Mixed hyperlipidemia Prostate cancer (HCC) Type 2 diabetes mellitus, without long-term current use of insulin (HCC) 06/20/2021 FAMILY HISTORY Problem Relation Age of Onset Diabetes Mother Emphysema Father Asbestosis Diabetes Brother Asthma Brother Social History Tobacco Use Smoking status: Former Types: Cigarettes Quit date: 07/29/2010 Years since quittin.3 Smokeless tobacco: Never Tobacco comments: years Vaping Use Vaping Use: Never used Substance Use Topics Alcohol use: Yes Comment: rarely Drug use: No PHYSICAL EXAMINATION GENERAL APPEARANCE: Well appearing, alert, in no acute distress, well-hydrated, well nourished. Genitourinary: MALE EXAM: right scrotum normal, left scrotal cyst, no erythema, mild tenderness, noexudate, healing. ASSESSMENT/PLAN: 1. Scrotal wall abscess - ICD9: 608.4, ICD10: N49.2 Complete antibiotics Warm compresses Return if no improvement Carina Baumann PA-C I spent a total of 20 minutes on the date of the service which included [id number] patient care, completing clinical documentation, performing a medically appropriate examination, and counseling and educating the patient/family/caregiver. documented in this encounterMiami Valley Hospital08-10-2022 History of Present illness Narrative* Dixon Valadez MD - 11/23/2021 6:20 PM EDT Chief Complaint Patient presents with: spot on scrotum HPI Reginald Vaughn is a 71 year old male who presents here today for a same day visit. Spot on the scrotum he has had x 2 weeks, treated with antibiotic for a week, seemed to get better but not completely. He states it is still seeping some, No pain, some itching.. Pt requested abx refill of Bactrim, but was declined by Maxim Naik CNP and advised if area on scrotum was not healed he needed to be evaluated by Urology. Pt has not been able to schedule with Urology, so scheduled here instead. Past medical history, appointments, medications, allergies reviewed. Previous Medical History PAST MEDICAL HISTORY Diagnosis Date Arthritis Bladder stones BPH (benign prostatic hyperplasia) CAD (coronary artery disease) Cancer (HCC) skin ca History of colon polyps 07/24/2013 Mixed hyperlipidemia Prostate cancer (HCC) Type 2 diabetes mellitus, without long-term current use of insulin (HCC) 06/20/2021 Previous Surgical History PAST SURGICAL HISTORY Procedure Laterality Date ARTHROSCOPY KNEE DIAGNOSTIC W/WO SYNOVIAL BX SPX Right 1990 Meniscal tear CABG (4) VEIN GRAFTS & ARTERIAL GRAFT(S) 06/08/2021 COLONOSCOPY FLX DX W/COLLJ SPEC WHEN PFRMD 07/24/2013 Colonoscopy COLONOSCOPY FLX DX W/COLLJ SPEC WHEN PFRMD 09/15/2016 Colonoscopy COLSC FLX W/RMVL OF TUMOR POLYP LESION SNARE TQ 12/30/2019 PAST SURGICAL HISTORY OF Right 2015 repair biceps tendon ROTATOR CUFF REPAIR Left 04/18/2013 Family History FAMILY HISTORY Problem Relation Age of Onset Diabetes Mother Emphysema Father Asbestosis Diabetes Brother Asthma Brother Patient Allergies ALLERGIES Allergen Reactions Keflex [Cephalexin] Other: See Comments Joint Pain Current Medications Current Outpatient Medications on File Prior to Visit Medication Sig LISINOPRIL ORAL Take 10 mg by mouth. dulaglutide (TRULICITY) 0.75 mg/0.5 mL pen injector Inject 0.75 mg subcutaneously one time a week. Inject dose once per week. Discard Pen After metFORMIN ER (GLUCOPHAGE XR) 500 mg 24 hr tablet Take 2 tablets by mouth twice daily with meals. metoprolol tartrate, short acting, (LOPRESSOR) 25 mg tablet Take 2 tablets by mouth every 12 hours. atorvastatin (LIPITOR) 40 mg tablet Take 1 tablet by mouth once daily. folic acid 1 mg tablet Take 1 tablet by mouth once daily. SITagliptin (JANUVIA) 100 mg tablet Take 1 tablet by mouth once daily. Lancets lancets Test blood sugar(s) 3 times daily. Dx: Type 2 DM - Controlled E11.9 Insulin: Yes Blood-Glucose Meter (TRUE METRIX AIR GLUCOSE METER) Test blood sugar(s) 3 times daily. Dx: Type 2 DM - Controlled E11.9 Insulin: Yes blood sugar diagnostic (TRUE METRIX GLUCOSE TEST STRIP) test strip Test blood sugar(s) 3 times daily. Dx: Type 2 DM - Controlled E11.9 Insulin: Yes clopidogrel (PLAVIX) 75 mg tablet Take 1 tablet by mouth once daily. Continue Plavix x one year, following heart attack. Blood Pressure Monitor CHECK vital signs daily or as needed aspirin 81 mg chewable tablet Take 1 tablet by mouth once daily. Take one ASPIRIN daily for life. acetaminophen (TYLENOL) 500 mg tablet Take 2 tablets by mouth four times daily. Blood Glucose Control, Normal soln 1 Bottle as directed. Current Facility-Administered Medications on File Prior to Visit Medication sodium chloride 0.9 % (flush) 10 mL (BD POSIFLUSH) Social History Social History Tobacco Use Smoking status: Former Types: Cigarettes Quit date: 07/29/2010 Years since quittin.3 Smokeless tobacco: Never Tobacco comments: years Vaping Use Vaping Use: Never used Substance Use Topics Alcohol use: Yes Comment: rarely Drug use: No EXAM: BP 122/70 Pulse 68 Resp 16 Wt 105.3 kg (232 lb 3.2 oz) BMI 33.80 kg/m General Appearance: Well appearing, alert, in no acute distress, well-hydrated, well nourished.. Genitalia: Left proximal scrotum has 1 cm soft nodule under skin, smooth, non tender, no drainage at this time, mild inflammation. Health Maintenance List ABDOMINAL AORTIC ANEURYSM SCREENING Never done URINE ALBUMIN:CREATININE RATIO Never done DILATED RETINAL EXAM Never done DIABETIC FOOT EXAM Never done SHINGRIX VACCINE(1 of 2) Never done PNEUMOCOCCAL: 65+(2 - PPSV23 or PCV20) due on 05/24/2018 ADVANCE DIRECTIVE DISCUSSION Never done COVID-19 VACCINE(4 - Booster for Moderna series) due on 07/22/2021 LDL CHOLESTEROL due on 07/23/2021 HBA1C due on 12/04/2021 INFLUENZA(1) due on 12/15/2021 DEPRESSION SCREENING due on 09/01/2022 ANNUAL PCP TEAM CHRONIC DISEASE VISIT due on 11/11/2022 COLORECTAL CANCER SCREENING due on 12/29/2024 DTAP,TDAP,TD(2 - Td or Tdap) due on 05/24/2027 HEPATITIS C SCREENING Addressed Data reviewed none ASSESSMENT/PLAN: 1. Cyst of scrotum - ICD9: 706.2, ICD10: L72.9 (primary diagnosis) Will place back on 10 days of Bactrim Schedule with his Urologist to see if removal if the cyst is needed - CONSULT TO UROLOGY 2. Abscess of scrotal wall - ICD9: 608.4, ICD10: N49.2 - SULFAMETHOXAZOLE 800 MG-TRIMETHOPRIM 160 MG TABLET Follow up prn I agree with the Chief Complaint, ROS, and Past Histories independently gathered by the clinical it application support analyst and the remaining scribed note accurately describes my personal service to the patient. Medical Decision Making: Problems: Low: Acute, uncomplicated illness or injury Risk: Moderate: Drug management Medical Decision Making Level: 3 - Low Dixon Valadez MD The documentation for this note was completed by Sierra Resendez Ma acting as scribe for Dixon Valadez MD. November 23, 2021 6:18 PM. Sierra Resendez Ma documented in this encounterMiami Valley Hospital08-10-2022 Miscellaneous Notes* Telephone Encounter - Analilia Ram Ma - 11/23/2021 3:54 PM EDT Pt scheduled visit with PCP alison. Analilia Ram Ma * Telephone Encounter - Analilia Ram Ma - 11/23/2021 3:01 PM EDT Pt sent message back requesting additional information from Provider below. Analilia Ram Ma * Telephone Encounter - Maxim Naik APRN.CNP - 11/23/2021 9:15 AM EDT Can we reach out to the patient to ask why he is asking for a refill of the antibiotic. If his spoton his scrotum is not healed, he needs to make an appointment with urology for further evaluation. Maxim Naik APRN.SHREYA * Telephone Encounter - Ana Leal LPN - 11/23/2021 7:16 AM EDT Patient phones requesting refills as follows: Requested Prescriptions Pending Prescriptions Disp Refills sulfamethoxazole-trimethoprim (BACTRIM DS) 800-160 mg per tablet 14 tablet 0 Sig: Take 1 tablet by mouth twice daily for 7 days. SHARA-11/11/21 Labs-10/28/21 NOV-none med filled 11/11/21 Please review and advise. Ana Leal LPN documented in this encounterMi[facility]22 History of Present illness Narrative* Alyssia Rutledge MD - 11/23/2021 11:07 AM EDT Radiation Oncology - On Treatment Review (OTR) Note PATIENT NAME: Reginald Vaughn PATIENT DIAGNOSIS: 70 year old male with a [id number], stage IIIB, Jennifer score 3+4 = 7, grade group 2, adenocarcinoma of the prostate. Pretreatment PSA 7.85ng/mL. S/p RALP on 02/21/2021. Grade group 2 disease with focal positive margins at the bladder neck. 10% cribriform pattern. 0/2 nodes. Postop PSA from 04/26/2021 =5.81 ng/mL. S/p 6 month Lupron depot on 07/28/21. After reviewing PSMA PET with [employer] med there was a questionable area of recurrence in the prostate bed . MRI showed residual SV tissue but nolymphadenopathy or gross recurrence in the prostate bed. COURSE: salvage AREA TREATED: pelvis CURRENT DOSE: 4600 cGy in 23 fx PLANNED DOSE: 4600 cGy in 23 fx to the pelvic lymph nodes followed by a [place] to the prostate bed to a dose of 2400 cGy in 12 fx. During each phase of treatment a SIB to the area of questionable recurrence on PSMA PET was delivered to a total dose of 74Gy in 35 fractions. SUBJECTIVE: Stable mild chronic urinary incontinence, no nocturia. Intermittent diarrhea no requiring imodium. No dermatitis. Energy improved after change in sleeping habits. Now on antibiotics for scrotal mass with decrease in size. Will cont to follow with his PCP for this. EXAM: KPS: 100 General Appearance: Alert and oriented. No acute distress. Radiation dermatitis: No IMAGING/LAB RESULTS: None Treatment chart checked: Yes Patient treatment site reviewed and verified:Yes Port films reviewed and current:Yes Medications started: None ASSESSMENT/PLAN: Clinically stable. Toxicity within expected parameters. Continue radiation treatment as planned. Alyssia Rutledge MD documented in this encounterMiami [facility]08-10-2022 Nurse Note* Jacquelyn Negrete RN - 11/23/2021 10:24 AM EDT Radiation Therapy - Nursing Note (OTV) PATIENT NAME: Reginald Vaughn PATIENT November 23, 2021 [facility] FACILITY/LOCATION: [facility] NURSING NOTE TYPE: PROSTATE - MALE PELVIS Subjective Data Additional Data Do you want to see a Visitor Service Assistant? No Status: Patient is male Stress Scale: On a scale of 0 to 10, what number best describes how much distress you have experienced in the past week?(0 being no distress and 10 being extreme distress) 0 Social work notified: Pt denied need to see social work lecturer at this time. Nursing Assessment Fatigue: moderate; causing difficulty performing some activities Appetite: good Nutritional Intake: Regular oral intake. and Oral intake with protein supplements, protein shake cans of 1 daily. Weight Gain/Loss: No Ambulatory weight history: Last 6 Encounter Wt Readings: Date: Wt: 11/23/2021 105.7 kg (233 lb) 11/18/2021 106.5 kg (234 lb 12.8 oz) 11/11/2021 107.5 kg (237 lb) 11/09/2021 107.8 kg (237 lb 9.6 oz) 11/02/2021 108 kg (238 lb) 10/26/2021 108 kg (238 lb 3.2 oz) Nausea:None Vomiting: None Bowel Function: diarrhea 1 - abdominal cramping; two or less soft or liquid bowel Erythema/Hyperpigmentation:none Desquamation:none Rash:none Skin Care: None Skin Sensation: Within Normal Limits Focused Assessment PROSTATE - MALE PELVIS: Rectal bleeding: No. Rectal pain: No. Bladder function: no problems. Urinary frequency (D/N): n/n. SIGNED by: Jacquelyn Negrete RN documented in this encounterMiami [facility] Hospital07-29-2022 History of Present illness Narrative* Maxim Naik APRN.SUPPORT SERVICE TECH - 11/11/2021 1:00 PM EDT Chief Complaint Patient presents with: sore on scrotum: X 1 week HPI Reginald Vaughn is a 71 year old male who presents here today for Above Complaints.. Patient is here for complaint of sore on scrotum. States that has been present for about a week. Hewas examined a few days ago by his radiation oncologist. It was determined that this was not causedby radiation. Patient is getting radiation treatments for prostate cancer. Patient states that is mainly nontender but within the last few days has been become sore. Some drainage on his incontinencepad that he is using. No fevers or chills. No swelling. No new urinary complaints. Has just tried to keep area clean, using water to clean area. Past medical history, appointments, medications, allergies reviewed. Previous Medical History PAST MEDICAL HISTORY Diagnosis Date Arthritis Bladder stones BPH (benign prostatic hyperplasia) CAD (coronary artery disease) Cancer (HCC) skin ca History of colon polyps 07/24/2013 Mixed hyperlipidemia Prostate cancer (HCC) Type 2 diabetes mellitus, without long-term current use of insulin (HCC) 06/20/2021 Previous Surgical History PAST SURGICAL HISTORY Procedure Laterality Date ARTHROSCOPY KNEE DIAGNOSTIC W/WO SYNOVIAL BX SPX Right 1989 Meniscal tear CABG (4) VEIN GRAFTS & ARTERIAL GRAFT(S) 06/08/2021 COLONOSCOPY FLX DX W/COLLJ SPEC WHEN PFRMD 07/24/2013 Colonoscopy COLONOSCOPY FLX DX W/COLLJ SPEC WHEN PFRMD 09/15/2016 Colonoscopy COLSC FLX W/RMVL OF TUMOR POLYP LESION SNARE TQ 12/30/2019 PAST SURGICAL HISTORY OF Right 2014 repair biceps tendon ROTATOR CUFF REPAIR Left 04/18/2013 Family History FAMILY HISTORY Problem Relation Age of Onset Diabetes Mother Emphysema Father Asbestosis Diabetes Brother Asthma Brother Patient Allergies ALLERGIES Allergen Reactions Keflex [Cephalexin] Other: See Comments Joint Pain Current Medications Current Outpatient Medications on File Prior to Visit Medication Sig dulaglutide (TRULICITY) 0.75 mg/0.5 mL pen injector Inject 0.75 mg subcutaneously one time a week. Inject dose once per week. Discard Pen After metFORMIN ER (GLUCOPHAGE XR) 500 mg 24 hr tablet Take 2 tablets by mouth twice daily with meals. metoprolol tartrate, short acting, (LOPRESSOR) 25 mg tablet Take 2 tablets by mouth every 12 hours. atorvastatin (LIPITOR) 40 mg tablet Take 1 tablet by mouth once daily. folic acid 1 mg tablet Take 1 tablet by mouth once daily. SITagliptin (JANUVIA) 100 mg tablet Take 1 tablet by mouth once daily. ferrous sulfate 325 mg (65 mg iron) tablet Take 1 tablet by mouth twice daily with meals. Lancets lancets Test blood sugar(s) 3 times daily. Dx: Type 2 DM - Controlled E11.9 Insulin: Yes Insulin [place], Disposable, (BD ULTRA-FINE SAQIB PEN NEEDLE) 32 gauge x 5/32 Use once daily with Lantus Pen Blood-Glucose Meter (TRUE METRIX AIR GLUCOSE METER) Test blood sugar(s) 3 times daily. Dx: Type 2 DM - Controlled E11.9 Insulin: Yes blood sugar diagnostic (TRUE METRIX GLUCOSE TEST STRIP) test strip Test blood sugar(s) 3 times daily. Dx: Type 2 DM - Controlled E11.9 Insulin: Yes clopidogrel (PLAVIX) 75 mg tablet Take 1 tablet by mouth once daily. Continue Plavix x one year, following heart attack. Blood Pressure Monitor CHECK vital signs daily or as needed aspirin 81 mg chewable tablet Take 1 tablet by mouth once daily. Take one ASPIRIN daily for life. acetaminophen (TYLENOL) 500 mg tablet Take 2 tablets by mouth four times daily. Blood Glucose Control, Normal soln 1 Bottle as directed. Current Facility-Administered Medications on File Prior to Visit Medication sodium chloride 0.9 % (flush) 10 mL (BD POSIFLUSH) Social History Social History Tobacco Use Smoking status: Former Smoker Types: Cigarettes Quit date: 07/29/2010 Years since quittin.2 Smokeless tobacco: Never Used Tobacco comment: years Vaping Use Vaping Use: Never used Substance Use Topics Alcohol use: Yes Comment: rarely Drug use: No REVIEW OF SYSTEMS: as above Reviewed relevant PMHx, PSHx, Social Hx, current medications and allergies. EXAM: BP 117/66 Pulse 74 Resp 14 Wt 107.5 kg (237 lb) BMI 34.50 kg/m General Appearance: Well appearing, alert, in no acute distress, well-hydrated, well nourished.. Skin: Left scrotal wall has a nodular, rubbery mass that resembles an abscess. When pressure is applied, purulent discharge is expressed. It is sensitive. No redness other than around nodule. Lymph Nodes: No inguinal lymphadenopathy.. Health Maintenance List ABDOMINAL AORTIC ANEURYSM SCREENING Never done URINE ALBUMIN:CREATININE RATIO Never done DILATED RETINAL EXAM Never done DIABETIC FOOT EXAM Never done SHINGRIX VACCINE(1 of 2) Never done PNEUMOCOCCAL: 65+(2 - PPSV23 or PCV20) due on 05/24/2018 ADVANCE DIRECTIVE DISCUSSION Never done COVID-19 VACCINE(4 - Booster for Moderna series) due on 07/22/2021 LDL CHOLESTEROL due on 07/23/2021 HBA1C due on 12/04/2021 INFLUENZA(1) due on 12/15/2021 DEPRESSION SCREENING due on 09/01/2022 ANNUAL PCP TEAM CHRONIC DISEASE VISIT due on 10/18/2022 COLORECTAL CANCER SCREENING due on 12/29/2024 DTAP,TDAP,TD(2 - Td or Tdap) due on 05/24/2027 HEPATITIS C SCREENING Addressed ASSESSMENT/PLAN: 1. Abscess of scrotal wall - ICD9: 608.4, ICD10: N49.2 -Start mupirocin, Bactrim. Keep area dry, clean. Follow-up if not improving in the next 4 to 5 daysor if he starts to have increased pain, swelling. - MUPIROCIN 2 % TOPICAL OINTMENT - SULFAMETHOXAZOLE 800 MG-TRIMETHOPRIM 160 MG TABLET Maxim Naik APRN.SUPPORT SERVICE TECH This note was partly generated using [employer] voice recognition dictation and may contain some misspelled or inaccurate words missed on review. documented in this encounterMiami [facility] Hospital07-27-2022 History of Present illness Narrative* Alyssia Rutledge MD - 11/09/2021 11:23 AM EDT Radiation Oncology - On Treatment Review (OTR) Note PATIENT NAME: Reginald Vaughn PATIENT DIAGNOSIS: 70 year old male with a [id number], stage IIIB, Jennifer score 3+4 = 7, grade group 2, adenocarcinoma of the prostate. Pretreatment PSA 7.85ng/mL. S/p RALP on 02/21/2021. Grade group 2 disease with focal positive margins at the bladder neck. 10% cribriform pattern. 0/2 nodes. Postop PSA from 04/26/2021 =5.81 ng/mL. S/p 6 month Lupron depot on 07/28/21. After reviewing PSMA PET with nuc med there was a questionable area of recurrence in the prostate bed . MRI showed residual SV tissue but nolymphadenopathy or gross recurrence in the prostate bed. COURSE: salvage AREA TREATED: pelvis CURRENT DOSE: 2600 cGy in 13 fx PLANNED DOSE: 4600 cGy in 23 fx to the pelvic lymph nodes followed by a [place] to the prostate bed to a dose of 2400 cGy in 12 fx. During each phase of treatment a SIB to the area of questionable recurrence on PSMA PET was delivered to a total dose of 74Gy in 35 fractions. SUBJECTIVE: Stable mild chronic urinary incontinence, no nocturia, no diarrhea. No dermatits. Pt reports a new non-tender mass on his left scrotum that was firmer 1 week ago but is now softenening. EXAM: KPS: 100 General Appearance: Alert and oriented. No acute distress. Radiation dermatitis: No : left superficial scrotum with a non-tender 1.5cm rubbery mass, without erythema, edema, and warmth. No ulceration through the skin. IMAGING/LAB RESULTS: None Treatment chart checked: Yes Patient treatment site reviewed and verified:Yes Port films reviewed and current:Yes Medications started: None ASSESSMENT/PLAN: Clinically stable. Toxicity within expected parameters. Scrotal lump not related to radiation. Patient agrees to make an appointment with his urologist Dr. العراقي for evaluation. Continue radiation treatment as planned. Alyssia Rutledge MD documented in this encounterMiami [facility] Hospital07-27-2022 Nurse Note* Jacquelyn Negrete RN - 11/09/2021 10:28 AM EDT Radiation Therapy - Nursing Note (OTV) PATIENT NAME: Reginald Vaughn PATIENT November 09, 2021 [facility] FACILITY/LOCATION: [facility] NURSING NOTE TYPE: PROSTATE - MALE PELVIS Subjective Data Additional Data Do you want to see a Visitor Service Assistant? No Status: Patient is male Stress Scale: On a scale of 0 to 10, what number best describes how much distress you have experienced in the past week?(0 being no distress and 10 being extreme distress) 0 Social work notified: Pt denied need to see social work lecturer at this time. Nursing Assessment Fatigue: increased fatigue over baseline but not altering normal activities Appetite: good Nutritional Intake: Regular oral intake. Weight Gain/Loss: No Ambulatory weight history: Last 6 Encounter Wt Readings: Date: Wt: 11/09/2021 107.8 kg (237 lb 9.6 oz) 11/02/2021 108 kg (238 lb) 10/26/2021 108 kg (238 lb 3.2 oz) 10/18/2021 110 kg (242 lb 9.6 oz) 09/01/2021 112.8 kg (248 lb 11.2 oz) 07/28/2021 106.6 kg (235 lb) Nausea:None Vomiting: None Bowel Function: normal bowel movements Erythema/Hyperpigmentation:none Desquamation:none Rash:none Skin Care: None Skin Sensation: Within Normal Limits Focused Assessment PROSTATE - MALE PELVIS: Rectal bleeding: No. Rectal pain: No. Bladder function: no problems. Urinary frequency (D/N): n/n. SIGNED by: Jacquelyn Negrete RN documented in this encounterMiami Valley Hospital07-26-2022 History of Present illness Narrative* Sierra Resendez Ma - 11/08/2021 9:25 AM EDT Scan on 11/07/2021 6:09 PM by External Provider: Consultation - Cardiology Sierra Resendez Ma documented in this encounterMiami Valley Hospital07-21-2022 History of Present illness Narrative* TIM Garcia - 11/03/2021 3:52 PM EDT TIM called pt regarding possible transportation concerns. Pt's car broke down and pt had scheduleda Lyft to take him to his [facility] appt. The Lyft cancelled on him last minute. Pt was able to have afamily member drive from [place] to pick him up and take him to treatment today; pt stated he made itto appt late. Pt stated he has a family member who is going to take him to treatment tomorrow (11-04-21) and he anticipates having his car back for next week. Pt was asking if transportation was available in case something like this comes up. TIM informed pt that most transportation options are county specific. Since pt doesn't live in [facility], he would not be eligible for [place]. TIM informed pt that there is the possibility of using [employer] for his transportation if he is in need in the future. Pt denied the need for an [employer] ride at this time. Pt has this [employer] NURSE's contact information for questions/concerns. documented in this encounterMiami Valley Hospital07-20-2022 History of Present illness Narrative* Alyssia Rutledge MD - 11/02/2021 10:55 AM EDT Radiation Oncology - On Treatment Review (OTR) Note PATIENT NAME: Reginald Vaughn PATIENT DIAGNOSIS: 70 year old male with a [id number], stage IIIB, Jennifer score 3+4 = 7, grade group 2, adenocarcinoma of the prostate. Pretreatment PSA 7.85ng/mL. S/p RALP on 02/21/2021. Grade group 2 disease with focal positive margins at the bladder neck. 10% cribriform pattern. 0/2 nodes. Postop PSA from 04/26/2021 =5.81 ng/mL. S/p 6 month Lupron depot on 07/28/21. After reviewing PSMA PET with [employer] there was a questionable area of recurrence in the prostate bed . MRI showed residual SV tissue but nolymphadenopathy or gross recurrence in the prostate bed. COURSE: salvage AREA TREATED: pelvis CURRENT DOSE: 1600 cGy in 8 fx PLANNED DOSE: 4600 cGy in 23 fx to the pelvic lymph nodes followed by a [place] to the prostate bed to a dose of 2400 cGy in 12 fx. During each phase of treatment a SIB to the area of questionable recurrence on PSMA PET was delivered to a total dose of 74Gy in 35 fractions. SUBJECTIVE: No acute effects, stable mild urinary incontinence, no nocturia, no diarrhea. EXAM: KPS: 100 General Appearance: Alert and oriented. No acute distress. Radiation dermatitis: No IMAGING/LAB RESULTS: None Treatment chart checked: Yes Patient treatment site reviewed and verified:Yes Port films reviewed and current:Yes Medications started: None ASSESSMENT/PLAN: Clinically stable. Toxicity within expected parameters. Continue radiation treatment as planned. Alyssia Rutledge MD documented in this encounterMiami Valley Hospital07-20-2022 Nurse Note* Jacobo Hassan RN - 11/02/2021 10:41 AM EDT Radiation Therapy - Nursing Note (OTV) PATIENT NAME: Reginald Vaughn PATIENT November 02, 2021 [facility] FACILITY/LOCATION: [facility] NURSING NOTE TYPE: PROSTATE - MALE PELVIS Subjective Data Pt denies any urinary frequency and is not getting up at night. Additional Data Do you want to see a Visitor Service Assistant? No Status: Patient is male Stress Scale: On a scale of 0 to 10, what number best describes how much distress you have experienced in the past week?(0 being no distress and 10 being extreme distress) 2 Social work notified: Pt denied need to see social work lecturer at this time. Nursing Assessment Fatigue: increased fatigue over baseline but not altering normal activities Appetite: good Nutritional Intake: Regular oral intake. Weight Gain/Loss: No Ambulatory weight history: Last 6 Encounter Wt Readings: Date: Wt: 11/02/2021 108 kg (238 lb) 10/26/2021 108 kg (238 lb 3.2 oz) 10/18/2021 110 kg (242 lb 9.6 oz) 09/01/2021 112.8 kg (248 lb 11.2 oz) 07/28/2021 106.6 kg (235 lb) 07/19/2021 106.6 kg (235 lb) Nausea:None Vomiting: None Bowel Function: normal bowel movements Erythema/Hyperpigmentation:none Desquamation:none Rash:none Skin Care: None Skin Sensation: Within Normal Limits Focused Assessment PROSTATE - MALE PELVIS: Rectal bleeding: No. Rectal pain: No. Bladder function: no problems. Urinary frequency (D/N): N/N. SIGNED by: Jacobo Hassan RN documented in this encounterMiami Valley Hospital07-18-2022 History of Present illness Narrative* TIM Garcia - 10/31/2021 1:13 PM EDT Images from the original note were not included. RE: Evaluation Lighting Technician TIM Garcia Resource Counselor (RC) spoke with patient via telephone today for Patient Navigation process. RC advised patient their role as the housekeeping and laundry team leader assisting patients in navigating the system both in thehospital as well as connecting patients with resources in the community. Any indicated areas of concern were addressed and referrals made as appropriate. Informed patient of the process of the benefits investigation which would be completed at the start of treatment, noted that if there are any redflags (i.e. A high max out of pocket) a member of the Resource Counselor team will meet with or call the patient to review in more detail. RX reviewed the role of the Tag Marker and the attempts she would make to assist the patient if eligible in an application for foundations based on diagnosis which may help with treatment cost. RC explained that this service is done as a courtesyand should never be expected due to the frequent closure of these foundations w/lack of funds. RC reviewed the New Patient folder which contains information on available support programs, financial assistance handouts/flyers and community resources. Reviewed that RC is able to assist PT in completing advanced directives which is encouraged for all patients regardless of diagnosis. Discussed patient satisfaction and to contact RX should patient have any questions or concerns so that RC could help facilitate a resolution. Patient was informed that one of our goals is to provide Diverse and Culturally Sensitive Assistance. Informed patient that if he wishes to discuss in further detail any of the information provided or programs to call and schedule an appointment. TIM Garcia ONC NCCN DISTRESS THERMOMETER 10/31/2021 Distress level 0 Practical Concerns No Pain No Sleep No Fatigue No Tobacco use No Substance use No Memory or concentration No Sexual health No Changes in eating No Loss or change of physical abilities No Emotional concerns No Worry or anxiety No Sadness or depression No Loss of interest or enjoyment No Grief or loss No Fear No Loneliness No Anger No Changes in appearance No Feeling worthless/being a burden No Social Concerns No Relationship with spouse/partner No Relationship with children No Relationship with family members No Relationship with friends or coworkers No Communication with health care team No Ability to have children No Practical Concerns No Taking care of myself No Taking care of others No Work No School No Housing No Finances No Insurance No Transporation No field care manager No Having enough food No Access to medicine No Treatment decisions No Spiritual or Congregational Concerns No Sense of meaning or purpose No Changes in sandee or beliefs No , dying or afterlife No Conflict between beliefs and cancer treaments No Relationhip with the sacred No Ritual or dietary needs No Other Concerns None documented in this encounterMiami Valley Hospital07-13-2022 History of Present illness Narrative* Alyssia Rutledge MD - 10/26/2021 1:39 PM EDT Radiation Oncology - On Treatment Review (OTR) Note PATIENT NAME: Regianld Vaughn PATIENT DIAGNOSIS: 70 year old male with a [id number], stage IIIB, [place] score 3+4 = 7, grade group 2, adenocarcinoma of the prostate. Pretreatment PSA 7.85ng/mL. S/p RALP on 02/21/2021. Grade group 2 disease with focal positive margins at the bladder neck. 10% cribriform pattern. 0/2 nodes. Postop PSA from 04/26/2021 =5.81 ng/mL. S/p 6 month Lupron depot on 07/28/21. After reviewing PSMA PET with [employer] there was a questionable area of recurrence in the prostate bed . MRI showed residual SV tissue but nolymphadenopathy or gross recurrence in the prostate bed. COURSE: salvage AREA TREATED: pelvis CURRENT DOSE: 600 cGy in 3 fx PLANNED DOSE: 4600 cGy in 23 fx to the pelvic lymph nodes followed by a [place] to the prostate bed to a dose of 2400 cGy in 12 fx. During each phase of treatment a SIB to the area of questionable recurrence on PSMA PET was delivered to a total dose of 74Gy in 35 fractions. SUBJECTIVE: No acute effects, stable mild urinary incontinence. EXAM: KPS: 100 General Appearance: Alert and oriented. No acute distress. Radiation dermatitis: No IMAGING/LAB RESULTS: None Treatment chart checked: Yes Patient treatment site reviewed and verified:Yes Port films reviewed and current:Yes Medications started: None ASSESSMENT/PLAN: Clinically stable. Toxicity within expected parameters. Continue radiation treatment as planned. Alyssia Rutledge MD documented in this encounterMiami Valley Hospital07-13-2022 Nurse Note* Jacquelyn Negrete RN - 10/26/2021 10:35 AM EDT Radiation Therapy - Nursing Note (OTV) PATIENT NAME: Reginald Vaughn PATIENT October 26, 2021 [facility] FACILITY/LOCATION: [facility] NOTE TYPE: PROSTATE - MALE PELVIS Subjective Data Additional Data Do you want to see a Visitor Service Assistant? No Status: Patient is male Stress Scale: On a scale of 0 to 10, what number best describes how much distress you have experienced in the past week?(0 being no distress and 10 being extreme distress) 0 Social work notified: Pt denied need to see social work lecturer at this time. Nursing Assessment Fatigue: none Appetite: good Nutritional Intake: Regular oral intake. Weight Gain/Loss: Yes Ambulatory weight history: Last 6 Encounter Wt Readings: Date: Wt: 10/26/2021 108 kg (238 lb 3.2 oz) 10/18/2021 110 kg (242 lb 9.6 oz) 09/01/2021 112.8 kg (248 lb 11.2 oz) 07/28/2021 106.6 kg (235 lb) 07/19/2021 106.6 kg (235 lb) 07/14/2021 106.6 kg (235 lb) Nausea:Nausea does not interfere with the ability to eat Vomiting: None Bowel Function: normal bowel movements Erythema/Hyperpigmentation:none Desquamation:none Rash:none Skin Care: None Skin Sensation: Within Normal Limits Focused Assessment PROSTATE - MALE PELVIS: Rectal bleeding: No. Rectal pain: No. Bladder function: no problems. Urinary frequency (D/N): n/n. SIGNED by: Jacquelyn Negrete RN documented in this encounterMiami [facility]07-[facility]-2022 History of Present illness Narrative* Dioxn Valadez MD - 10/18/2021 1:20 PM EDT Chief Complaint Patient presents with: Recheck HPI Reginald Vaughn is a 70 year old male who presents here today for completion of paperwork. Pt scheduled visit today via [employer] to complete short term disability paperwork that is needing cresencio completed. States that [employer] and his Insurance Company ([employer]) sent him a letter that he needed to update his disability paperwork. Disability - Pt has been written off from 03/26/21 - 05/09/[address] العراقي with Urology due to prostate procedures and complications from surgery. Pt was then referred from Primary Care to ED due to results of an EKG in office. Pt went into [facility] ED on 05/31/21 dx wtih NSTEMI that required CABG on 06/08/21. He was again given short term disability by Dr. Peng, dating from 06/08/21 to 09/05 with RTWstarting 09/06/21. Pt was then given an extension due to being in Cardiac rehab, he believes this may of been through [facility] by Dr. Madrigal, extending to 11/06/21 or 11/10/21. Still currently in cardiac rehab 3 days per week. In addition to still being in Cardiac Rehab he is going to be starting radiation treatments for prostate/bladder cancer. He will be seeing Dr. Alyssia Rutledge, and they are planning to do treatments through November. Recommended that he contact these offices for continuing disability documentation and support. Joints - Pt reports Sunday while doing recumbent bike with doing his cardiac rehab, he started experiencing L knee and L hip popping and L knee going out. Pt reports that his pain is a dull aching pain, but it was very short lasting. Does cardiac rehab 3 x per week. He denies any pain today, but only popping this morning. Pt reports that his breathing is doing much better. BP is doing well when checking at home and cardiac rehab. Following with Dr. 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 On third step of Trulicity 3 mg, Metformin ER 500 mg 2 tabs po bid and Januvia 100 mg once daily. Past medical history, appointments, medications, allergies reviewed. Previous Medical History PAST MEDICAL HISTORY Diagnosis Date Arthritis Bladder stones BPH (benign prostatic hyperplasia) CAD (coronary artery disease) Cancer (HCC) skin ca History of colon polyps 07/24/2013 Mixed hyperlipidemia Prostate cancer (HCC) Type 2 diabetes mellitus, without long-term current use of insulin (HCC) 06/20/2021 Previous Surgical History PAST SURGICAL HISTORY Procedure Laterality Date ARTHROSCOPY KNEE DIAGNOSTIC W/WO SYNOVIAL BX SPX Right 1989 Meniscal tear CABG (4) VEIN GRAFTS & ARTERIAL GRAFT(S) 06/08/2021 COLONOSCOPY FLX DX W/COLLJ SPEC WHEN PFRMD 07/24/2013 Colonoscopy COLONOSCOPY FLX DX W/COLLJ SPEC WHEN PFRMD 09/15/2016 Colonoscopy COLSC FLX W/RMVL OF TUMOR POLYP LESION SNARE TQ 12/30/2019 PAST SURGICAL HISTORY OF Right 2015 repair biceps tendon ROTATOR CUFF REPAIR Left 04/18/2013 Family History FAMILY HISTORY Problem Relation Age of Onset Diabetes Mother Emphysema Father Asbestosis Diabetes Brother Asthma Brother Patient Allergies ALLERGIES Allergen Reactions Keflex [Cephalexin] Other: See Comments Joint Pain Current Medications Current Outpatient Medications on File Prior to Visit Medication Sig dulaglutide (TRULICITY) 0.75 mg/0.5 mL pen injector Inject 0.75 mg subcutaneously one time a week. Inject dose once per week. Discard Pen After metFORMIN ER (GLUCOPHAGE XR) 500 mg 24 hr tablet Take 2 tablets by mouth twice daily with meals. metoprolol tartrate, short acting, (LOPRESSOR) 25 mg tablet Take 2 tablets by mouth every 12 hours. atorvastatin (LIPITOR) 40 mg tablet Take 1 tablet by mouth once daily. folic acid 1 mg tablet Take 1 tablet by mouth once daily. SITagliptin (JANUVIA) 100 mg tablet Take 1 tablet by mouth once daily. ferrous sulfate 325 mg (65 mg iron) tablet Take 1 tablet by mouth twice daily with meals. Lancets lancets Test blood sugar(s) 3 times daily. Dx: Type 2 DM - Controlled E11.9 Insulin: Yes Insulin [place], Disposable, (BD ULTRA-FINE SAQIB PEN NEEDLE) 32 gauge x 5/32 Use once daily with Lantus Pen Blood-Glucose Meter (TRUE METRIX AIR GLUCOSE METER) Test blood sugar(s) 3 times daily. Dx: Type 2 DM - Controlled E11.9 Insulin: Yes blood sugar diagnostic (TRUE METRIX GLUCOSE TEST STRIP) test strip Test blood sugar(s) 3 times daily. Dx: Type 2 DM - Controlled E11.9 Insulin: Yes clopidogrel (PLAVIX) 75 mg tablet Take 1 tablet by mouth once daily. Continue Plavix x one year, following heart attack. Blood Pressure Monitor CHECK vital signs daily or as needed aspirin 81 mg chewable tablet Take 1 tablet by mouth once daily. Take one ASPIRIN daily for life. acetaminophen (TYLENOL) 500 mg tablet Take 2 tablets by mouth four times daily. Blood Glucose Control, Normal soln 1 Bottle as directed. Current Facility-Administered Medications on File Prior to Visit Medication sodium chloride 0.9 % (flush) 10 mL (BD POSIFLUSH) Social History Social History Tobacco Use Smoking status: Former Smoker Types: Cigarettes Quit date: 07/29/2010 Years since quittin.2 Smokeless tobacco: Never Used Tobacco comment: years Vaping Use Vaping Use: Never used Substance Use Topics Alcohol use: Yes Comment: rarely Drug use: No EXAM: BP 128/82 (BP Site: Left Arm, BP Position: Sitting, BP Cuff Size: Regular Adult) Pulse 78 Resp 16 Wt 110 kg (242 lb 9.6 oz) BMI 35.31 kg/m General Appearance: Well appearing, alert, in no acute distress, well-hydrated, well nourished. andObese. Lungs: Lungs clear to auscultation. No wheezing, rhonchi, rales.. Heart: RRR without murmur, gallop, or rubs. No ectopy. Extremities: L knee pain ROM normal. L hip possible bursa inflammation or tendon Health Maintenance List ABDOMINAL AORTIC ANEURYSM SCREENING Never done URINE ALBUMIN:CREATININE RATIO Never done DILATED RETINAL EXAM Never done DIABETIC FOOT EXAM Never done SHINGRIX VACCINE(1 of 2) Never done PNEUMOCOCCAL: 65+(2 - PPSV23 or PCV20) due on 05/24/2018 ADVANCE DIRECTIVE DISCUSSION Never done COVID-19 VACCINE(4 - Booster for Moderna series) due on 07/22/2021 LDL CHOLESTEROL due on 07/23/2021 HBA1C due on 12/04/2021 INFLUENZA(1) due on 12/15/2021 ANNUAL PCP TEAM CHRONIC DISEASE VISIT due on 09/01/2022 DEPRESSION SCREENING due on 09/01/2022 COLORECTAL CANCER SCREENING due on 12/29/2024 DTAP,TDAP,TD(2 - Td or Tdap) due on 05/24/2027 HEPATITIS C SCREENING Addressed Data reviewed Epic ASSESSMENT/PLAN: 1. S/P CABG x 4 - ICD9: V45.81, ICD10: Z95.1 (primary diagnosis) - Contact Cardio for paperwork 2. NSTEMI (non-ST elevated myocardial infarction) (HCC) - ICD9: 410.70, ICD10: I21.4 3. Prostate cancer (HCC) - ICD9: 185, ICD10: C61 Follow with Urology/Radiation ONcology 4. Trochanteric bursitis of left hip - ICD9: 726.5, ICD10: M70.62 - Stretching, heat, etc/ monitor 5. Popping sound of knee joint - ICD9: 719.66, ICD10: R29.898 - Monitor Keep f/u as scheduled. I agree with the Chief Complaint, ROS, and Past Histories independently gathered by the clinical it application support analyst and the remaining scribed note accurately describes my personal service to the patient. Medical Decision Making: Problems: Moderate: 2+ stable chronic illnesses Risk: Moderate: Drug management Medical Decision Making Level: 4 - Moderate Dixon Valadez MD The documentation for this note was completed by Analilia Ram Ma acting as scribe for Dixon Valadez MD. October 18, 2021 2:02 PM. documented in this encounterMiami [facility]06-23-2022 History of Present illness Narrative* RT Mary(R) - 10/06/2021 4:30 PM EDT Radiology Service Progress Note PATIENT NAME: Reginald Vaughn DATE OF SERVICE: October 06, 2021 TIME: 4:56 PM PATIENT IDENTITY VERIFICATION COMPLETED USING TWO (2) IDENTIFIERS: Name and Date of confirmedby patient verbally. FALL SCREENING: Has the patient had 2 falls in the last year or 1 fall with injury or currently using an Ambulatory Assistive Device (Walker, Cane, Wheelchair, Crutches, etc.)? No PATIENT GENDER DATA: Male PATIENT RELEVANT IMPLANT DATA REVIEWED: Yes RADIOLOGY DEPARTMENT: MR; Exam(s) Completed: Body: Prostate PERIPHERAL IV DATA: Site assessment: Clean,Dry and Intact, Site disposition Discontinued SIGNED BY: RT Mary(R) October 06, 2021 4:56 PM * Daniella Prieto RN - 10/06/2021 4:30 PM EDT Radiology Service Progress Note DATE OF SERVICE: October 06, 2021 TIME: 4:24 PM PATIENT WEIGHT: [id number] PATIENT IDENTITY VERIFICATION COMPLETED USING TWO (2) STANDARD IDENTIFIERS: Name and Date of confirmed by patient verbally and Name and Date of confirmed by identification band. FALL SCREENING: Has the patient had 2 falls in the last year or 1 fall with injury or currently using an Ambulatory Assistive Device (Walker, Cane, Wheelchair, Crutches, etc.)? No PATIENT GENDER DATA: Male ALLERGIES: Reviewed and unchanged CONTRAST ALLERGY: No EXAM: MRI - CONTRAST TYPE: GROUP II IV SITE: Ambulatory: A peripheral IV was started in the Right forearm with a Angio cath: 22 gauge. IV SITE APPEARANCE: Clean,Dry and Intact SIGNATURE: Daniella Prieto RN PATIENT NAME: Reginald Vaughn DATE: October 06, 2021 TIME: 4:24 PM documented in this encounterMiami [facility]05-19-2022 History of Present illness Narrative* Dixon Valadez MD - 09/01/2021 8:00 AM EDT Chief Complaint Patient presents with: Medication Follow-up HPI Reginadl Vaughn is a 70 year old male who presents here today for medication follow up. He does have an advanced directive, current in process of updating this. He is thinking that he is not going to continue working much longer. 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 Denies feeling depressed or hopeless. Non smoker, no chewing tobacco. Drinks alcohol maybe once or twice a month. No bowel, Gi, or urinary issues. He is following with Urologist Dr. العراقي for prostate cancer. He had bx done, had prostate removed. Still had some cancer cells to part of bladder. He had mapping done and had Lupron injection back in July. He will be starting radiation for 22 treatments and 11 follow ups. He isn't having much issues with urination, he is able to tell when he needs to urinate. HTN: He is checking his BP at home readings 140-120/80-60. His BP is checked 3 x while at Cardio Rehab with readings running 140-120/80-60. Taking Lopressor 25 mg 2 pills BID. NSTEMI and S/P CABG x 4in . he is doing Cardiac rehab at [facility] 3 days per week. Following with Cardio Dr. Dueñas. Taking Lipitor 40 mg daily and Plavix 75 mg daily. Also taking 81 mg Aspirin a day. Follows with Vascular Dr. Peng. He is watching diet, saw machine hamper maker yesterday. DM: Checking BS once a day with FBS 106-120. Denies any issues with hypoglycemic episodes. Denies any numbness, tingling or burning in feet. Taking Januvia 100 mg daily, Metformin xr 500 mg 2 pills BID. No longer longer on Lantus. Is now taking Trulicity 0.75 mg once a week. He is following with Endo Dr. Shelton and her nurse practitioner Zohra. He has not seen eye doctor for dm eye exam. Recent [id number] to 5.9 at [employer] [employer] office. Past medical history, appointments, medications, allergies reviewed. Previous Medical History PAST MEDICAL HISTORY Diagnosis Date Arthritis Bladder stones BPH (benign prostatic hyperplasia) CAD (coronary artery disease) Cancer (HCC) skin ca History of colon polyps 07/24/2013 Mixed hyperlipidemia Prostate cancer (HCC) Type 2 diabetes mellitus, without long-term current use of insulin (HCC) 06/20/2021 Previous Surgical History PAST SURGICAL HISTORY Procedure Laterality Date ARTHROSCOPY KNEE DIAGNOSTIC W/WO SYNOVIAL BX SPX Right 1989 Meniscal tear CABG (4) VEIN GRAFTS & ARTERIAL GRAFT(S) 06/08/2021 COLONOSCOPY FLX DX W/COLLJ SPEC WHEN PFRMD 07/24/2013 Colonoscopy COLONOSCOPY FLX DX W/COLLJ SPEC WHEN PFRMD 09/15/2016 Colonoscopy COLSC FLX W/RMVL OF TUMOR POLYP LESION SNARE TQ 12/30/2019 PAST SURGICAL HISTORY OF Right 2015 repair biceps tendon ROTATOR CUFF REPAIR Left 04/18/2013 Family History FAMILY HISTORY Problem Relation Age of Onset Diabetes Mother Emphysema Father Asbestosis Diabetes Brother Asthma Brother Patient Allergies ALLERGIES Allergen Reactions Keflex [Cephalexin] Other: See Comments Joint Pain Current Medications Current Outpatient Medications on File Prior to Visit Medication Sig atorvastatin (LIPITOR) 40 mg tablet Take 1 tablet by mouth once daily. folic acid 1 mg tablet Take 1 tablet by mouth once daily. metoprolol tartrate, short acting, (LOPRESSOR) 25 mg tablet Take 2 tablets by mouth every 12 hours. SITagliptin (JANUVIA) 100 mg tablet Take 1 tablet by mouth once daily. ferrous sulfate 325 mg (65 mg iron) tablet Take 1 tablet by mouth twice daily with meals. Lancets lancets Test blood sugar(s) 3 times daily. Dx: Type 2 DM - Controlled E11.9 Insulin: Yes Insulin [place], Disposable, (BD ULTRA-FINE SAQIB PEN NEEDLE) 32 gauge x 32 Use once daily with Lantus Pen Blood-Glucose Meter (TRUE METRIX AIR GLUCOSE METER) Test blood sugar(s) 3 times daily. Dx: Type 2 DM - Controlled E11.9 Insulin: Yes blood sugar diagnostic (TRUE METRIX GLUCOSE TEST STRIP) test strip Test blood sugar(s) 3 times daily. Dx: Type 2 DM - Controlled E11.9 Insulin: Yes melatonin 3 mg tablet Take 3 mg by mouth at bedtime as needed for for insomnia. insulin glargine (LANTUS SOLOSTAR U-100 INSULIN) 100 unit/mL (3 mL) Inject 10 Units subcutaneously every 24 hours. clopidogrel (PLAVIX) 75 mg tablet Take 1 tablet by mouth once daily. Continue Plavix x one year, following heart attack. Blood Pressure Monitor CHECK vital signs daily or as needed aspirin 81 mg chewable tablet Take 1 tablet by mouth once daily. Take one ASPIRIN daily for life. magnesium oxide (MAG-OX) 400 mg (241.3 mg magnesium) tablet Take 1 tablet by mouth once daily. metFORMIN ER (GLUCOPHAGE XR) 500 mg 24 hr tablet Take 1 tablet by mouth twice daily with meals. acetaminophen (TYLENOL) 500 mg tablet Take 2 tablets by mouth four times daily. Blood Glucose Control, Normal soln 1 Bottle as directed. Current Facility-Administered Medications on File Prior to Visit Medication sodium chloride 0.9 % (flush) 10 mL (BD POSIFLUSH) Social History Social History Tobacco Use Smoking status: Former Smoker Types: Cigarettes Quit date: 07/29/2010 Years since quittin.1 Smokeless tobacco: Never Used Tobacco comment: years Vaping Use Vaping Use: Never used Substance Use Topics Alcohol use: Yes Comment: rarely Drug use: No EXAM: BP 128/78 Pulse 68 Resp 16 Wt 112.8 kg (248 lb 11.2 oz) BMI 36.20 kg/m General Appearance: Well appearing, alert, in no acute distress, well-hydrated, well nourished. andMorbidly obese. Lungs: Lungs clear to auscultation. No wheezing, rhonchi, rales.. Heart: RRR without murmur, gallop, or rubs. No ectopy. Extremities: lexy legs; no swelling. Health Maintenance List ABDOMINAL AORTIC ANEURYSM SCREENING Never done URINE ALBUMIN:CREATININE RATIO Never done DILATED RETINAL EXAM Never done DIABETIC FOOT EXAM Never done SHINGRIX VACCINE(1 of 2) Never done PNEUMOVAX AGE 65 AND OVER WITH 5YR LOOKBACK(1) Never done ADVANCE DIRECTIVE DISCUSSION Never done DEPRESSION SCREENING due on 06/19/2021 COVID-19 VACCINE(4 - Booster for Moderna series) due on 07/22/2021 LDL CHOLESTEROL due on 07/23/2021 HBA1C due on 12/04/2021 ANNUAL PCP TEAM CHRONIC DISEASE VISIT due on 05/31/2022 COLORECTAL CANCER SCREENING due on 12/29/2024 DTAP,TDAP,TD(2 - Td or Tdap) due on 05/24/2027 INFLUENZA Completed HEPATITIS C SCREENING Addressed MENINGOCOCCAL CONJUGATE Aged Out Data reviewed None ASSESSMENT/PLAN: 1. Type 2 diabetes mellitus without complication, without long-term current use of insulin (HCC) - ICD9: 250.00, ICD10: E11.9 (primary diagnosis) improved control - Continue current medications - Continue with Endo Dr. Akshat HAIRSTON 0.75 MG/0.5 ML SUBCUTANEOUS PEN INJECTOR - METFORMIN ER 500 MG TABLET,EXTENDED RELEASE 24 HR 2. S/P CABG x 4 - ICD9: V45.81, ICD10: Z95.1 Continue current medications. Continue with CardioDr. Dueñas 3. NSTEMI (non-ST elevated myocardial infarction) (HCC) - ICD9: 410.70, ICD10: I21.4 Continue current medications. Continue with CardioDr. Dueñas 4. Obesity, Class II, BMI 35-39.9 - ICD9: 278.00, ICD10: E66.9 Stable Recommend healthy diet and exercise 5. Prostate cancer (HCC) - ICD9: 185, ICD10: C61 Continue with Urologist 6. Anemia Check CBC today; notify of result Taking iron twice daily Follow up in 3 months with fasting labs and urine test prior. I agree with the Chief Complaint, ROS, and Past Histories independently gathered by the clinical it application support analyst and the remaining scribed note accurately describes my personal service to the patient. Medical Decision Making: Problems: Moderate: 2+ stable chronic illnesses Data: Unique test(s) ordered: 3+ Risk: Moderate: Drug management Medical Decision Making Level: 4 - Moderate Dixon Valadez MD The documentation for this note was completed by Sierra Resendez Ma acting as scribe for Dixon Valadez MD. September 01, 2021 8:15 AM. Sierra Resendez Ma documented in this encounterMiami [facility] Hospital05-16-2022 History of Present illness Narrative* Alyssia Rutledge MD - 08/29/2021 12:00 AM EDT [facility] Department of Radiation Oncology Reginald Vaughn [id number] 08/29/2021 Radiation Oncology - Simulation Note Diagnosis: 70 year old male with a [id number], stage IIIB, Jennifer score 3+4 = 7, grade group 2, adenocarcinoma of the prostate. Pretreatment PSA 7.85ng/mL. S/p RALP on 02/21/2021. Grade group 2 disease with focal positive margins at the bladder neck. 10% cribriform pattern. 0/2 nodes. Postop PSA from 04/26/2021 =5.81 ng/mL. S/p 6 month Lupron depot on 07/28/21. Area: Prostate cancer Position: Supine Contrast: none Protocol: n/a Blocks: Custom blocks are necessary to develop an optimal plan. Immobilization: In order to achieve accurate and reproducible treatments, the patient was immobilized with a split leg sponge device. Procedure: A time-out was conducted and recorded by the therapist. Patient simulated on the [employer] CT simulator for external beam radiation therapy. Patient marked. Planning: tbd. Assessment/Plan: Patient tolerated simulation procedure well. Treatments will be initiated after treatment planning. The patient is scheduled for a verification simulation on the treatment machine toensure proper set-up and field arrangement is correct prior to the first treatment. Electronically Signed: Alyssia Rutledge M.D. 26:30 PM documented in this encounterMiami Valley Hospital05-16-2022 History of Present illness Narrative* Alyssia Rutledge MD - 08/29/2021 12:00 AM EDT REGINALD VAUGHN [id number] 08/29/2021 [facility] Department of Radiation Oncology Treatment Planning Note For reasons stated in the consult note, Reginald Vaughn is a candidate for radiation therapy. Based on review and interpretation of the relevant diagnostic studies together with the exam findings, Reginald Vaughn was simulated on 08/29/2021 at which time the target volume and/or requisite mathew were d elineated, as indicated in the simulation note, to be treated according to the prescription. The treatment target and organs at risk were contoured on the simulation scan. After reviewing multiple treatment plans with dosimetry, the best plan was approved to deliver the prescribed course of radiation to the target area using inverse planning to allow for the best isodose distribution, treating to the 96.1% isodose line with 10MV and 3 mathew. Custom MLC & asym jaws for IMRT were the treatment devices used to shape/modify the beams. Limiting dose to normal tissue was confirmed upon review of the calculated dose volume histogram. IMRT planning was used because it best met the dose/volume constraints for the organs at risk for this patient, better than what could be achieved using conventional or 3D planning. The specific doserequirements for the PTV, organs at risk and dose-volume histograms are contained in this treatmentplan and/or elsewhere in the medical record. A completed summary of this plan dated 10/19/2021 incorporated herein by reference includes dose, beam arrangements, energy, blocking, isodose distribution, and/or ports and DVH. Electronically Signed Alyssia Rutledge M.D. 212:41 PM documented in this encounterMiami [facility] Hospital05-12-2022 Miscellaneous Notes* Telephone Encounter - Sierra Resendez Ma - 08/25/2021 3:05 PM EDT The following approved medication requests have been transmitted electronically. Signed Prescriptions Disp Refills metoprolol tartrate, short acting, (LOPRESSOR) 25 mg tablet 180 tablet 1 Sig: Take 2 tablets by mouth every 12 hours. VERN: No Authorizing Provider: DIXON VALADEZ Ma * Telephone Encounter - Dixon Valadez MD - 08/25/2021 3:00 PM EDT Rx corrected Dixon Valadez MD * Telephone Encounter - Carina Crystal Ma - 08/25/2021 12:44 PM EDT Pended rx correctly Carina Crystal Ma * Telephone Encounter - Loraine Rosales - 08/25/2021 12:23 PM EDT Patient is taking 2 tablets a day of the metoprolol, which would mean he needs dispensed 180 tablets with 1 refill. Please contact [employer] at [phone] and reference number [id number] to update. documented in this encounterMiami Valley Hospital04-26-2022 Miscellaneous Notes* Telephone Encounter - Maxim Naik APRN.CNP - 08/09/2021 9:40 AM EDT The following approved medication requests have been transmitted electronically. Pending Prescriptions Disp Refills METOPROLOL TARTRATE 25 MG TABLET 60 tablet 4 Sig: Take 2 tablets by mouth every 12 hours. VERN: No Maxim Naik APRN.CNP documented in this encounterMiami Valley Hospital04-16-2022 History of Present illness Narrative* Rajat العراقي Jr., MD - 07/30/2021 7:41 PM EDT ESTABLISHED PATIENT OFFICE VISIT HPI Reginald Vaughn is a 70 year old male who presents sp turp 07/29. 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 Voiding. pvr 524. ua +. 09/03/20: Office cysto with well resected prostatic fossa 09/29/20 - Had UDS on 09/23. Showed GOLDMAN. Was able to void 250cc of 500. Feels like getting sensation back. No more gross hematuria. No flank pain. 11/03/20: Had CIC teaching after last visit (16 Coude BID). - pvr's still 500+. Path discussed todayfrom turp 12/08/2020: Patient still straight cathing BID. Is getting out some sediment at the end of catheterizations. No recent UTIs. Intermittent hematuria which is mild. He is able to void in between catheterizations and believes this is improving. Had CT pelvis and bone scan which were negative for metastatic disease. Has not had recent PSA. 02/09/21: doing well. Has continued to self cath bid in the morning and night. Catheter was placed today and urine culture sent. Finished course of bactrim yesterday and refilled new script. Denies any current issues. 03/24/21 - cath out today. cath'd easily. 04/01/2021 - S/p RALP and PLND on 02/21/2021. Catheter was removed on 03/24/2021. Patient began having R scrotal pain on 03/25. Went to ED and was diagnosed with UTI and had scrotal US which demonstrated R epididymo-orchitis. He was started on abx and kept in holding for ~48 hours. Patient believes he is slowly improving. He still has R scrotal swelling but this seems to be improving. He still has 7 days remaining of levofloxacin. No fevers or chills. He had hirsch catheter inserted while inpatient due to the swelling and inability to straight cath. 04/14/21 - r epididymo-orchitis much improved. Still on abx 04/28/21 - post op psa 5.81. cathing for very small amounts. Nearly continent. 07/28/21 - since last seen had NSTEMI. Got cabg x4. Much improved. In retention at the time. Voidingok now. Nearly continent. psa 07/05 4.49. received lupron x 6 months today. Decipher low risk. Score0.41. will get radiation. LAB: Creatinine Date Value Ref Range Status 06/12/2021 0.95 0.73 - 1.22 mg/dL Final PSA (ng/mL) Date Value 06/27/2021 4.49 04/26/2021 5.81 12/08/2020 7.85 Glucose, Urine (no units) Date Value 06/05/2021 Negative Bilirubin, Urine (no units) Date Value 06/05/2021 Negative Ketones, Urine (no units) Date Value 06/05/2021 Negative Specific [place], Ur (no units) Date Value 06/05/2021 1.012 Hemoglobin/Blood,Ur (no units) Date Value 06/05/2021 Negative pH, Urine (no units) Date Value 06/05/2021 6.0 Protein, Urine (no units) Date Value 06/05/2021 Negative Nitrites (no units) Date Value 06/05/2021 Negative WBC, Urine (no units) Date Value 06/05/2021 0-5 /HPF MEDICATIONS: ferrous sulfate 325 mg (65 mg iron) tablet Take 1 tablet by mouth twice daily with meals. atorvastatin (LIPITOR) 40 mg tablet take 1 tablet by mouth once daily metoprolol tartrate, short acting, (LOPRESSOR) 25 mg tablet Take 2 tablets by mouth every 12 hours. Lancets lancets Test blood sugar(s) 3 times daily. Dx: Type 2 DM - Controlled E11.9 Insulin: Yes Insulin [place], Disposable, (BD ULTRA-FINE SAQIB PEN NEEDLE) 32 gauge x 5/32 Use once daily with Lantus Pen Blood-Glucose Meter (TRUE METRIX AIR GLUCOSE METER) Test blood sugar(s) 3 times daily. Dx: Type 2 DM - Controlled E11.9 Insulin: Yes blood sugar diagnostic (TRUE METRIX GLUCOSE TEST STRIP) test strip Test blood sugar(s) 3 times daily. Dx: Type 2 DM - Controlled E11.9 Insulin: Yes melatonin 3 mg tablet Take 3 mg by mouth at bedtime as needed for for insomnia. insulin glargine (LANTUS SOLOSTAR U-100 INSULIN) 100 unit/mL (3 mL) Inject 10 Units subcutaneously every 24 hours. clopidogrel (PLAVIX) 75 mg tablet Take 1 tablet by mouth once daily. Continue Plavix x one year, following heart attack. folic acid 1 mg tablet Take 1 tablet by mouth once daily. aspirin 81 mg chewable tablet Take 1 tablet by mouth once daily. Take one ASPIRIN daily for life. magnesium oxide (MAG-OX) 400 mg (241.3 mg magnesium) tablet Take 1 tablet by mouth once daily. SITagliptin (JANUVIA) 100 mg tablet Take 1 tablet by mouth once daily. metFORMIN ER (GLUCOPHAGE XR) 500 mg 24 hr tablet Take 1 tablet by mouth twice daily with meals. acetaminophen (TYLENOL) 500 mg tablet Take 2 tablets by mouth four times daily. Blood Glucose Control, Normal soln 1 Bottle as directed. Blood Pressure Monitor CHECK vital signs daily or as needed REVIEW OF SYSTEMS Review of Systems Constitutional: Negative. Respiratory: Negative. Cardiovascular: Negative. Gastrointestinal: Negative. Genitourinary: Negative. Skin: Negative. Neurological: Negative. Psychiatric/Behavioral: Negative. HISTORIES PAST MEDICAL HISTORY Diagnosis Date Arthritis Bladder stones BPH (benign prostatic hyperplasia) CAD (coronary artery disease) Cancer (HCC) skin ca History of colon polyps 07/24/2013 Mixed hyperlipidemia Prostate cancer (HCC) Type 2 diabetes mellitus, without long-term current use of insulin (HCC) 06/20/2021 FAMILY HISTORY Problem Relation Age of Onset Diabetes Mother Emphysema Father Asbestosis Diabetes Brother Asthma Brother SOCIAL HISTORY Social History Tobacco Use Smoking status: Former Smoker Types: Cigarettes Quit date: 07/29/2010 Years since quittin.0 Smokeless tobacco: Never Used Tobacco comment: years Vaping Use Vaping Use: Never used Substance Use Topics Alcohol use: Yes Comment: rarely Drug use: No PHYSICAL EXAMINATION General appearance: Well appearing, alert, in no acute distress and well- hydrated, well nourished Skin: Skin color, texture, turgor normal, no suspicious rashes or lesions Respiratory:+ effort Cardiovascular: Not examined GI: Normal abdominal exam, Abdomen soft, non-tender. No masses, organomegaly Musculoskeletal: Negative Neuro: Negative Genitourinary: not examined Impression: (C61) Prostate cancer (HCC) Plan: 6 months psa prior Rajat العراقي Jr, MD 07/30/2021 documented in [facility]14[facility]22 Nurse Note* Malia Young - 07/28/2021 9:50 AM EDT Reginald Vaughn a 70 year old male, identified by name and date of , here for a 6 month lupron injection. Adverse Effects: Hot Flashes: No Frequency: none Allergies reviewed: Yes Injection Administration: Lupron 45 mg IM Left upper quad glute Patient tolerated well. FOLLOW UP: Next Dose: 6 months Malia Young RN documented in this encounterMiami [facility]04-11-2022 History of Present illness Narrative* Vidhi Eastman RN - 07/25/2021 5:25 PM EDT TRANSITION CARE MANAGEMENT (TCM) FOLLOW-UP NOTE Provider Action/FYI TCM [facility] discharge 06-13-21- follow up - Patient wanting one last call for follow up with Endo Released from Visiting nurses. PET scan results looked good with follow up 07-28-21 with Urology for hormone injection Cardiac rehab eval 08-01-21 Endo follow up with Dr. Shelton 08-15-21 Summary: Pt discharged from on 06-13-21. Admitted for: Heart attack with need for CABG x4 after sent to ED for abnormal EKG Concerns: Machine Hamper Maker plan for next outreach: No further follow up needed at this time Signature Vidhi Eastman RN July 25, 2021 documented in this encounterMi[facility]04-11-2022 Miscellaneous Notes* Telephone Encounter - Dixon Valadez MD - 07/25/2021 3:47 PM EDT OK to refill as ordered Dixon Valadez MD * Telephone Encounter - PRISCA Suárez - 07/25/2021 3:38 PM EDT Patient has been identified by name and date of : Yes Patient phones for refill(s): Pending Prescriptions Disp Refills FERROUS SULFATE 325 MG (65 MG IRON) TABLET 60 tablet 2 Sig: Take 1 tablet by mouth twice daily with meals. VERN: No Date of last office visit in primary care: OV on 05/31/2021 Future appointment scheduled for 09/01/2021 Last 2 Encounter Wt Readings: Date: Wt: 07/19/2021 106.6 kg (235 lb) 07/14/2021 106.6 kg (235 lb) Please advise. Thank you. PRISCA Suárez documented in this encounterMi[facility]04-11-2022 Miscellaneous Notes* Telephone Encounter - Rafy Torres MA - 07/25/2021 9:19 AM EDT Done. Referal pending. * Telephone Encounter - Rajat العراقي Jr., MD - 07/25/2021 8:48 AM EDT Sure Set up on nursing schedule right before or after appt with me * Telephone Encounter - Rafy Torres MA - 07/22/2021 2:16 PM EDT Patient called inquiring if ok to add Lupron Injection to his 07/28/2021 Dr. العراقي Follow up. Please advise. Rafy Torres MA documented in this encounterMi[facility]04-06-2022 Miscellaneous Notes* Telephone Encounter - Madina Mccurdy - 07/20/2021 2:02 PM EDT [facility] phone [phone] fax [phone] Orders, 07/14/21 office encounter, operative report and demographics faxed on 07/20/21 documented in this encounterMi[facility]04-06-2022 Miscellaneous Notes* Telephone Encounter - Debra Noble RN - 07/20/2021 9:06 AM EDT Yogi Valadez, Pt was dc'd from home health as planned. He is in process of getting set up with cardiac rehab at [facility]. Thank you for following for home health! documented in this encounterMiami [facility]04-05-2022 Miscellaneous Notes* SN Agency DC - Debra Noble RN - 07/19/2021 11:21 AM EDT SITUATION: [facility] agency discharge visit completed today. patient reports the following: Allergies--reviewed Medications--full medication reconciliation completed Falls--None BACKGROUND: Reason for Home Care: post CABG care ASSESSMENT: SN greeted at door by patient no DME and demonstrates stable gait. Patient appears in no acute distress. Patient/CG concerns verbalized today: pt has been playing telephone tag with cardiac rehab. He iswaiting for a call back from them. Vitals (see flow sheet for details): stable SN findings today: Pt is up and ambulating without a device. He reports that he has no pain. He hasbeen released from surgical service to start cardiac rehab. Pt has had his follow up appt with Dr Dueñas. He has been released to drive and pt feels that he will be able to manage his OP appts on his own. He will be going to cardiac rehab at [facility]. All surgical wounds are healed. Pt continues to monitor blood sugars 1-3 times a day and is waiting on a call for a follow up appt with a local legal process specialist. Pt has had an unveventful home health course and is agreeable to dc today. See intervention summary for education details and any skills performed. Specific SN discharge instructions: Follow up with Dr Dueñas for any heart related concerns suchas weight gain >4#, follow up with urologist as recommended and contact his office for any concerns of possible UTI such as dark cloudy urine, odor, pain or burning with urination or urinary retention symptoms. Patient encouraged to take all medication as ordered, eat a well-balanced diet and follow up with all physician appointments. NOMNC: signed and present on EMR Discharged due to Goals met. Patient discharged from Home Care to: self-care RECOMMENDATION: Additional follow ups recommended: None Patient to follow up with Dr. Valadez for additional medical questions/concerns. documented in this encounterMiami [facility]04-04-2022 History of Present illness Narrative* Marie Fowler RT(R) - 07/18/2021 2:30 PM EDT RADIOLOGY SERVICE PROGRESS NOTE SERVICE DATE: 07/18/2021 SERVICE TIME: 2:00 PM PATIENT IDENTITY VERIFICATION COMPLETED USING TWO (2) STANDARD IDENTIFIERS: Name and Date of confirmed by patient verbally FALL SCREENING: Has the patient had 2 falls in the last year or 1 fall with injury or currently using an Ambulatory Assistive Device (Walker, Cane, Wheelchair, Crutches, etc.)? No PATIENT GENDER DATA: .male ALLERGIES: Reviewed and unchanged MEDICATIONS REVIEWED: Not applicable PATIENT RELEVANT IMPLANT DATA REVIEWED: Not Applicable CREATININE: Creatinine Date Value Ref Range Status 06/12/2021 0.95 0.73 - 1.22 mg/dL Final 06/11/2021 0.94 0.73 - 1.22 mg/dL Final 06/10/2021 1.01 0.73 - 1.22 mg/dL Final Estimated Glomerular Filtration Rate Date Value Ref Range Status 06/12/2021 86 >=60 mL/min/1.73m Final Comment: Estimated Glomerular Filtration Rate (eGFR) is calculated using the 2020 CKD-EPI creatinine equation. This equation utilizes serum creatinine, sex, and age as parameters. The creatinine assay has traceable calibration to isotope dilution- mass spectrometry. Refer to KDIGO guidelines for clinical interpretation. In patients with unstable renal function, e.g. those with acute kidney injury, the eGFRmay not accurately reflect actual GFR. eGFR- Date Value Ref Range Status 06/10/2021 >60 Final P.O.C.T. RESULTS: N/A July 18, [address] PERFORMED: No IV SITE: Ambulatory: A peripheral IV was started in the Left hand with a Angio cath: 24 gauge. POST EXAM PIV STATUS: Discontinued PROCEDURE TYPE: NM INJECT: PET/CT BODY SCAN. 8.9 mCi F18 Pylarify. No other medications given.. ADMINISTRATION TIME: 1354 PATIENT DISCHARGED TO: Ambulatory patient, left [place] department area. A Diagnostic radioactive procedure has taken place, with no further precautions necessary other than routine body substance precautions. More information regarding radiation safety can be found usingthis link: [email or web address] SIGNATURE: RT Melecio(R) PATIENT NAME: Reginald Vaughn DATE: July 18, 2021 TIME: 2:00 PM PAGER/CONTACT #: documented in this encounterMiami [facility] Hospital04-01-2022 Miscellaneous Notes* Telephone Encounter - Kiana Bonilla APRN.CNP - 07/15/2021 11:04 AM EDT Call returned to pt and reviewed his CXR as well as answered his questions regarding cardiac silhouette appears mildly enlarged. Kiana Bonilla APRN.CNP documented in this encounterMiami [facility] Hospital03-31-2022 Instructions* Patient Instructions* Zohra Koch APRN.CNP - 07/14/2021 1:39 PM EDT You have done a great job recovering from you surgery, moving forward, here are the recommendations: Medications: please continue taking Aspirin, beta babs and statin for coronary artery disease. Please avoid taking NSAIDs (Aleve, Ibuprofen, Motrin, Advil, Mobic etc) Driving: Ok to drive now! Vest: ok to stop using Cardiac Rehab: [phone] ([place] [facility], floor 1) You will have a EKG stress test before and after the cardiac rehab, [facility] Restrictions: slowly increase weight bearing in a gradual fashion (5-10 lbs increment each month) over the next 2-3 months to allow further healing, then gradually resume your normal activities depending on how you feel. Follow-ups: It is crucial to establish future appointments with your main providers, they are you mouthpiece maker , primary care doctor and/or your legal process specialist for medications refills/questions and future health management. You can follow up with cardiac surgery team on as needed basis. Please don't hesitate to contact us if you have any concerns/questions: [phone] Thanks for coming in to see me today. Zohra Koch APRN.CNP documented in this encounterMiami [facility] Hospital03-31-2022 History of Present illness Narrative* Zohra Koch APRN.CNP - 07/14/2021 1:00 PM EDT HPI: Reginald Vaughn is a 70 year old male with prior smoking hx, squamous cell skin cancer, prostate cancer with hematuria, and COURTNEY, who presented to [place] ED following an abnormal EKG at his PCP's office. Patient reports having felt intermittent midsternal chest pressure for the past six weeks. He states that it is associated with SOB and is most often brought on with exertion but is sometimes experienced at rest. He denies any other associated diaphoresis, palpitation, N/V. Patients reports being in the process of scheduling a stress test when he was found to have concerning EKG findings in the office. Upon arrival to [place], patient was admitted for further cardiac workup. Echo revealed EF of 40% with WMA. LHC revealed MV CAD including severe LAD disease. Patient was placed on a heparin gtt and transferred to [facility] for CTS consult and workup for possible CABG. On 06/08/2021, patient underwent CABG x4 with CUI in situ mammary end to side mid LAD, Vein graft ascending aorta end to side posterior descending (PDA), Vein graft ascending aorta end to side obtusemarginal 1, Vein graft ascending aorta sequential (side to side) ramus, performed by Dr. Peng. Post-op recovery was overall non complicated. He did have urinary retention requiring hirsch re-insertion and urology consultation. He was discharged home on POD#4-5. Patient returns to the office today for one month post-discharge follow up . Interval events: CXR pending. Pt denies acute cardiac and incisional complaints. His pain is controlled. VS log reviewed: average SBP 120s and HR 70s. Reginald Vaughn reports home recovery as listed below: Episodes of dizziness or syncope: No Chest pain: No Palpitations: No BP: reviewed per home log: See above Tolerating diet well without changing bowel habits: Yes Fever, chills: No Activities at home without SOB or MOSER: walks frequently. 5 minutes per walk x3 walks per day Post surgical pain without pain medications. No pain. Leg edema: None Sleep: Good Energy: Good Subjective: Current Outpatient Medications Medication Sig atorvastatin (LIPITOR) 40 mg tablet take 1 tablet by mouth once daily metoprolol tartrate, short acting, (LOPRESSOR) 25 mg tablet Take 2 tablets by mouth every 12 hours. Lancets lancets Test blood sugar(s) 3 times daily. Dx: Type 2 DM - Controlled E11.9 Insulin: Yes Insulin [place], Disposable, (BD ULTRA-FINE SAQIB PEN NEEDLE) 32 gauge x 5/32 Use once daily with Lantus Pen Blood-Glucose Meter (TRUE METRIX AIR GLUCOSE METER) Test blood sugar(s) 3 times daily. Dx: Type 2 DM - Controlled E11.9 Insulin: Yes blood sugar diagnostic (TRUE METRIX GLUCOSE TEST STRIP) test strip Test blood sugar(s) 3 times daily. Dx: Type 2 DM - Controlled E11.9 Insulin: Yes melatonin 3 mg tablet Take 3 mg by mouth at bedtime as needed for for insomnia. insulin glargine (LANTUS SOLOSTAR U-100 INSULIN) 100 unit/mL (3 mL) Inject 10 Units subcutaneously every 24 hours. clopidogrel (PLAVIX) 75 mg tablet Take 1 tablet by mouth once daily. Continue Plavix x one year, following heart attack. folic acid 1 mg tablet Take 1 tablet by mouth once daily. Blood Pressure Monitor CHECK vital signs daily or as needed aspirin 81 mg chewable tablet Take 1 tablet by mouth once daily. Take one ASPIRIN daily for life. magnesium oxide (MAG-OX) 400 mg (241.3 mg magnesium) tablet Take 1 tablet by mouth once daily. SITagliptin (JANUVIA) 100 mg tablet Take 1 tablet by mouth once daily. metFORMIN ER (GLUCOPHAGE XR) 500 mg 24 hr tablet Take 1 tablet by mouth twice daily with meals. acetaminophen (TYLENOL) 500 mg tablet Take 2 tablets by mouth four times daily. Blood Glucose Control, Normal soln 1 Bottle as directed. ferrous sulfate 325 mg (65 mg iron) tablet Take 1 tablet by mouth twice daily with meals. Current Facility-Administered Medications Medication Dose Route Frequency sodium chloride 0.9 % (flush) 10 mL (BD POSIFLUSH) 10 mL INTRAVENOUS DIRECTED PRN Keflex [Cephalexin] PAST MEDICAL HISTORY Diagnosis Date Arthritis Bladder stones BPH (benign prostatic hyperplasia) Cancer (HCC) skin ca History of colon polyps 07/24/2013 Mixed hyperlipidemia Prostate cancer (HCC) Type 2 diabetes mellitus, without long-term current use of insulin (HCC) 06/20/2021 PAST SURGICAL HISTORY Procedure Laterality Date ARTHROSCOPY KNEE DIAGNOSTIC W/WO SYNOVIAL BX SPX Right 1989 Meniscal tear CABG (4) VEIN GRAFTS & ARTERIAL GRAFT(S) 06/08/2021 COLONOSCOPY FLX DX W/COLLJ SPEC WHEN PFRMD 07/24/2013 Colonoscopy COLONOSCOPY FLX DX W/COLLJ SPEC WHEN PFRMD 09/15/2016 Colonoscopy COLSC FLX W/RMVL OF TUMOR POLYP LESION SNARE TQ 12/30/2019 PAST SURGICAL HISTORY OF Right 2015 repair biceps tendon ROTATOR CUFF REPAIR Left 04/18/2013 FAMILY HISTORY Problem Relation Age of Onset Diabetes Mother Emphysema Father Asbestosis Diabetes Brother Asthma Brother Social History Tobacco Use Smoking status: Former Smoker Types: Cigarettes Quit date: 07/29/2010 Years since quittin.9 Smokeless tobacco: Never Used Tobacco comment: years Vaping Use Vaping Use: Never used Substance Use Topics Alcohol use: Yes Comment: rarely Drug use: No Review of Systems Constitutional: Negative for chills, fever and weight loss. HENT: Negative. Eyes: Negative. Respiratory: Negative for cough, hemoptysis, sputum production, shortness of breath and wheezing. Cardiovascular: Negative for chest pain, palpitations, orthopnea, claudication, leg swelling and PND. Gastrointestinal: Negative. Genitourinary: Negative. Musculoskeletal: Negative. Skin: Negative. Neurological: Negative. Endo/Heme/Allergies: Negative. Psychiatric/Behavioral: Negative. All other systems reviewed and are negative. Objective: Physical Examination: Vitals:BP 102/64 Pulse 60 Resp 18 Ht 5' 9 (1.75m) Wt 235 lb (106.6kg) SpO2 97% BMI 34.69 kg/(m^2). Last 2 Encounter Wt Readings: Date: Wt: 06/17/2021 250 lb (113.4 kg) 06/15/2021 256 lb 3 oz (116.2 kg) Physical Exam Vitals and nursing note reviewed. Constitutional: General: He is not in acute distress. Appearance: Normal appearance. He is obese. He is not ill-appearing or diaphoretic. HENT: Head: Normocephalic. Eyes: Extraocular Movements: Extraocular movements intact. Conjunctiva/sclera: Conjunctivae normal. Pupils: Pupils are equal, round, and reactive to light. Neck: Vascular: No carotid bruit, hepatojugular reflux or JVD. Cardiovascular: Rate and Rhythm: Normal rate and regular rhythm. Chest Wall: PMI is not displaced. Pulses: Normal pulses. No decreased pulses. Heart sounds: Normal heart sounds, S1 normal and S2 normal. Heart sounds not distant. No murmur heard. No friction rub. No gallop. No S3 or S4 sounds. Pulmonary: Effort: Pulmonary effort is normal. No respiratory distress. Breath sounds: Normal breath sounds. No wheezing or rhonchi. Chest: Comments: Midsternal and CT incisions well approximated and healing. Stable sternotomy. No S&S of infection. Abdominal: General: Bowel sounds are normal. Palpations: Abdomen is soft. Musculoskeletal: General: Normal range of motion. Cervical back: Normal range of motion. No edema or erythema. Skin: General: Skin is warm and dry. Findings: No petechiae. Comments: LE vein harvest site well approximated and healing. Neurological: Mental Status: He is alert and oriented to person, place, and time. Mental status is at baseline. Gait: Gait is intact. Psychiatric: Mood and Affect: Mood and affect normal. Assessment and Plan: ASSESSMENT/PLAN: 1. NSTEMI (non-ST elevated myocardial infarction) (HCC) - ICD9: 410.70, ICD10: I21.4 (primary diagnosis) 2. S/P CABG x 4 - ICD9: V45.81, ICD10: Z95.1 - 1 month post discharge follow up visit: very well -Continue aspirin 81 mg daily, metoprolol 50 mg BID, and atorvastatin 40 mg daily - Plavix 75 mg for 1 year per ACS - DC vest and okay to drive - Increase lift/push/pull by 5-10 lbs each month until back to baseline - Start cardiac rehab now- second order placed and will follow-up to make sure pt est. caden -Follow-up with Organic Preparation Technician/Dr. Dueñas: pt scheduled for follow-up on 07/15 3. Postoperative anemia due to acute blood loss - ICD9: 285.1, ICD10: D62 - Continue Fe, Folic Acid and Vit C x 30 days - Further mgt per PCP 4. Type 2 diabetes mellitus without complication, unspecified whether skilled nursing insulin use (HCC) -ICD9: 250.00, ICD10: E11.9 Controlled. - Average BS 110s - Continue current medications - Pt referred to Endo upon DC, issues with finding a physician in [place]. Referred per PCP to new Endo on 06/30, follow-up pending. 6. Lung nodules - ICD9: 793.19, ICD10: R91.8 - Incidentally found on pre-op CT scan - CT CHEST WO IVCON in one year per PCP. Zohra Koch APRN.CNP July 14, 2021 1:48 PM documented in this encounterMiami [facility] Hospital03-30-2022 Miscellaneous Notes* SN Routine - Yanira Paez RN - 07/13/2021 11:30 AM EDT SITUATION: [facility]pc routine visit completed today.patient reports the following: Allergies--reviewed Medications--full medication reconciliation completed Falls--None DME-Reviewed and added to chart BACKGROUND: Reason for Home Care: post op precautions ASSESSMENT: SN greeted at door by patient no DME and demonstrates stable gait. Patient appears in no acute distress. Vitals (see flow sheet for details): stable SN findings today: Pt presents today ambulating in his home without assist his gait is stable. he has progressed well towards his ursing goals, his catheter has been removed and he no longer has an IV line, with ni changes he should be ready for discharge next visit. Non coverage letter signed thisvisit See intervention summary for education details. Patient demonstrated a need for further skilled SN services for chronic disease management & education. Current Discharge plan: self-care RECOMMENDATION: Next visit to focus on (be specific): discharge documented in this encounterMiami [facility] Hospital03-29-2022 History of Present illness Narrative* Sierra Resendez Ma - 07/12/2021 3:31 PM EDT Office has sent referral and demo to Dr. Shelton's office for them to call pt and schedule. I will re fax. Sierra Resendez Ma * Vidhi Eastman RN - 07/12/2021 1:40 PM EDT TRANSITION CARE MANAGEMENT (TCM) FOLLOW-UP NOTE Provider Action/FYI TCM [facility] discharge 06-13-21- follow up Doing really well including BP and BS. Still walking when weather permits. Walking around including stairs without shortness of breath 2nd post op this week and [facility] 07-15-21 Will finally get permission to drive 07-14-21 PET scan 07-18-13 to assess remnant of cancer on duct of bladder and injection 07-28-21 All glue gone and past surgical incisions healing well. Patient identified by name and date of : YES Spoke to patient Summary: Pt discharged from on 06-13-21. Admitted for: Heart attack with need for CABG x4 after sent to ED for abnormal EKG Concerns: Still waiting to hear from Endo Dr. Patricio Shelton's office for appointment. Will route to PCP and office, including Sierra Resendez MA Machine Hamper Maker plan for next outreach: Would like one more call to ensure Endo follow up Signature Vidhi Eastman RN July 12, 2021 documented in this encounterMiami [facility] Hospital02-01-2022 Evaluation note* Diagnosis Onset Date Resolution Status Cardiomyopathy acute History of coronary artery bypass surgery May, acute HLD (hyperlipidemia) acute Diabetes chronic Obesity (BMI 30-39.9) [facility] Work Phone: 1(653) 893-955502-01-2022 Evaluation note* Diagnosis Onset Date Resolution Status Cardiomyopathy acute History of coronary artery bypass surgery May, acute HLD (hyperlipidemia) acute Diabetes chronic Obesity (BMI 30-39.9) chroni c Cardiomyopathy acute History of coronary artery bypass surgery May, acute HLD (hyperlipidemia) acute [facility] Work Phone: [phone]) 591-406702-01-2022 Evaluation note* Diagnosis Onset Date Resolution Status Diabetes chronic Obesity (BMI 30-39.9) chroni c Cardiomyopathy acute History of coronary artery bypass surgery May, acute HLD (hyperlipidemia) acute Diabetes chronic Obesity (BMI 30-39.9) chroni c [facility] Work Phone: 1(366) 748-620202-01-2022 Evaluation note* Diagnosis Onset Date Resolution Status Cardiomyopathy acute History of coronary artery bypass surgery May, acute HLD (hyperlipidemia) acute Elevated blood pressure reading chronic Acute kidney injury acute Diabetes chronic Elevated blood pressure reading chronic [facility] Work Phone: 1([phone]) 328-211908-23-2019 History of Past illness Narrative* Problem Noted Date Diagnosed Date Resolved Date 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 11/18/2022 Obesity, Class III, BMI 40-4 9.9 (morbid obesity) 08/22/2017 12/06/2018 documented as of this encounter (statuses as of 01/08/2023) [address]23-2019 History of Past illness Narrative* Problem Noted Date Diagnosed Date Resolved Date 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 11/18/2022 Obesity, Class III, BMI 40-4 9.9 (morbid obesity) 08/22/2017 12/06/2018 documented as of this encounter (statuses as of 02/09/2023) [facility]08-23-2019 History of Past illness Narrative* Problem Noted Date Diagnosed Date Resolved Date 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 11/18/2022 Obesity, Class III, BMI 40-4 9.9 (morbid obesity) 08/22/2017 12/06/2018 documented as of this encounter (statuses as of 04/04/2023) [facility]08-23-2019 History of Past illness Narrative* Problem Noted Date Diagnosed Date Resolved Date 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 11/18/2022 Obesity, Class III, BMI 40-4 9.9 (morbid obesity) 08/22/2017 12/06/2018 documented as of this encounter (statuses as of 05/22/2023) [facility]08-23-2019 History of Past illness Narrative* Problem Noted Date Diagnosed Date Resolved Date 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 11/18/2022 Obesity, Class III, BMI 40-4 9.9 (morbid obesity) 08/22/2017 12/06/2018 documented as of this encounter (statuses as of 06/04/2023) [facility]08-[facility]-2019 History of Past illness Narrative* Problem Noted Date Diagnosed Date Resolved Date 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 11/18/2022 Obesity, Class III, BMI 40-4 9.9 (morbid obesity) 08/22/2017 12/06/2018 documented as of this encounter (statuses as of 07/03/2023) [address]23-2019 History of Past illness Narrative* Problem Noted Date Diagnosed Date Resolved Date 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 11/18/2022 Obesity, Class III, BMI 40-4 9.9 (morbid obesity) 08/22/2017 12/06/2018 documented as of this encounter (statuses as of 07/12/2023) [facility]2019 History of Past illness Narrative* Problem Noted Date Diagnosed Date Resolved Date 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 11/18/2022 Obesity, Class III, BMI 40-4 9.9 (morbid obesity) 08/22/2017 12/06/2018 documented as of this encounter (statuses as of 07/12/2023) [facility]-2019 History of Past illness Narrative* Problem Noted Date Diagnosed Date Resolved Date 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 11/18/2022 Obesity, Class III, BMI 40-4 9.9 (morbid obesity) 08/22/2017 12/06/2018 documented as of this encounter (statuses as of 08/02/2023) [facility]05-09-2018 History of Past illness Narrative* Problem Noted Date Resolved Date Obesity, Class III, BMI 40-49.9 (morbid obesity) 08/22/2017 12/06/2018 documented as of this encounter (statuses as of 07/12/2021) [facility]05-[facility]-2018 History of Past illness Narrative* Problem Noted Date Resolved Date Obesity, Class III, BMI 40-49.9 (morbid obesity) 08/22/2017 12/06/2018 documented as of this encounter (statuses as of 07/13/2021) [facility]2018 History of Past illness Narrative* Problem Noted Date Resolved Date Obesity, Class III, BMI 40-49.9 (morbid obesity) 08/22/2017 12/06/2018 documented as of this encounter (statuses as of 07/14/2021) [facility]2018 History of Past illness Narrative* Problem Noted Date Resolved Date Obesity, Class III, BMI 40-49.9 (morbid obesity) 08/22/2017 12/06/2018 documented as of this encounter (statuses as of 07/15/2021) [facility]2018 History of Past illness Narrative* Problem Noted Date Resolved Date Obesity, Class III, BMI 40-49.9 (morbid obesity) 08/22/2017 12/06/2018 documented as of this encounter (statuses as of 07/15/2021) [facility]2018 History of Past illness Narrative* Problem Noted Date Resolved Date Obesity, Class III, BMI 40-49.9 (morbid obesity) 08/22/2017 12/06/2018 documented as of this encounter (statuses as of 07/19/2021) [facility]2018 History of Past illness Narrative* Problem Noted Date Resolved Date Obesity, Class III, BMI 40-49.9 (morbid obesity) 08/22/2017 12/06/2018 documented as of this encounter (statuses as of 07/19/2021) [facility]2018 History of Past illness Narrative* Problem Noted Date Resolved Date Obesity, Class III, BMI 40-49.9 (morbid obesity) 08/22/2017 12/06/2018 documented as of this encounter (statuses as of 07/20/2021) [facility]2018 History of Past illness Narrative* Problem Noted Date Resolved Date Obesity, Class III, BMI 40-49.9 (morbid obesity) 08/22/2017 12/06/2018 documented as of this encounter (statuses as of 07/20/2021) [place] [address]2018 History of Past illness Narrative* Problem Noted Date Resolved Date Obesity, Class III, BMI 40-49.9 (morbid obesity) 08/22/2017 12/06/2018 documented as of this encounter (statuses as of 07/25/2021) [facility]2018 History of Past illness Narrative* Problem Noted Date Resolved Date Obesity, Class III, BMI 40-49.9 (morbid obesity) 08/22/2017 12/06/2018 documented as of this encounter (statuses as of 07/25/2021) [facility]2018 History of Past illness Narrative* Problem Noted Date Resolved Date Obesity, Class III, BMI 40-49.9 (morbid obesity) 08/22/2017 12/06/2018 documented as of this encounter (statuses as of 07/26/2021) [facility]2018 History of Past illness Narrative* Problem Noted Date Resolved Date Obesity, Class III, BMI 40-49.9 (morbid obesity) 08/22/2017 12/06/2018 documented as of this encounter (statuses as of 07/26/2021) [facility]2018 History of Past illness Narrative* Problem Noted Date Resolved Date Obesity, Class III, BMI 40-49.9 (morbid obesity) 08/22/2017 12/06/2018 documented as of this encounter (statuses as of 07/28/2021) [facility]2018 History of Past illness Narrative* Problem Noted Date Resolved Date Obesity, Class III, BMI 40-49.9 (morbid obesity) 08/22/2017 12/06/2018 documented as of this encounter (statuses as of 07/30/2021) [facility]2018 History of Past illness Narrative* Problem Noted Date Resolved Date Obesity, Class III, BMI 40-49.9 (morbid obesity) 08/22/2017 12/06/2018 documented as of this encounter (statuses as of 08/09/2021) [facility]2018 History of Past illness Narrative* Problem Noted Date Resolved Date Obesity, Class III, BMI 40-49.9 (morbid obesity) 08/22/2017 12/06/2018 documented as of this encounter (statuses as of 08/25/2021) [facility]2018 History of Past illness Narrative* Problem Noted Date Resolved Date Obesity, Class III, BMI 40-49.9 (morbid obesity) 08/22/2017 12/06/2018 documented as of this encounter (statuses as of 08/30/2021) [facility]2018 History of Past illness Narrative* Problem Noted Date Resolved Date Obesity, Class III, BMI 40-49.9 (morbid obesity) 08/22/2017 12/06/2018 documented as of this encounter (statuses as of 08/30/2021) [facility]2018 History of Past illness Narrative* Problem Noted Date Resolved Date Obesity, Class III, BMI 40-49.9 (morbid obesity) 08/22/2017 12/06/2018 documented as of this encounter (statuses as of 09/01/2021) [facility]2018 History of Past illness Narrative* Problem Noted Date Resolved Date Obesity, Class III, BMI 40-49.9 (morbid obesity) 08/22/2017 12/06/2018 documented as of this encounter (statuses as of 09/14/2021) [facility]2018 History of Past illness Narrative* Problem Noted Date Resolved Date Obesity, Class III, BMI 40-49.9 (morbid obesity) 08/22/2017 12/06/2018 documented as of this encounter (statuses as of 10/07/2021) [facility]2018 History of Past illness Narrative* Problem Noted Date Resolved Date Obesity, Class III, BMI 40-49.9 (morbid obesity) 08/22/2017 12/06/2018 documented as of this encounter (statuses as of 10/18/2021) [facility]2018 History of Past illness Narrative* Problem Noted Date Resolved Date Obesity, Class III, BMI 40-49.9 (morbid obesity) 08/22/2017 12/06/2018 documented as of this encounter (statuses as of 10/20/2021) [facility]2018 History of Past illness Narrative* Problem Noted Date Resolved Date Obesity, Class III, BMI 40-49.9 (morbid obesity) 08/22/2017 12/06/2018 documented as of this encounter (statuses as of 2021) [facility]05[facility]2018 History of Past illness Narrative* Problem Noted Date Resolved Date Obesity, Class III, BMI 40-49.9 (morbid obesity) 08/22/2017 12/06/2018 documented as of this encounter (statuses as of 10/25/2021) [facility]2018 History of Past illness Narrative* Problem Noted Date Resolved Date Obesity, Class III, BMI 40-49.9 (morbid obesity) 08/22/2017 12/06/2018 documented as of this encounter (statuses as of 10/26/2021) [facility]2018 History of Past illness Narrative* Problem Noted Date Resolved Date Obesity, Class III, BMI 40-49.9 (morbid obesity) 08/22/2017 12/06/2018 documented as of this encounter (statuses as of 10/26/2021) [facility]2018 History of Past illness Narrative* Problem Noted Date Resolved Date Obesity, Class III, BMI 40-49.9 (morbid obesity) 08/22/2017 12/06/2018 documented as of this encounter (statuses as of 10/27/2021) [facility]2018 History of Past illness Narrative* Problem Noted Date Resolved Date Obesity, Class III, BMI 40-49.9 (morbid obesity) 08/22/2017 12/06/2018 documented as of this encounter (statuses as of 10/28/2021) [facility]2018 History of Past illness Narrative* Problem Noted Date Resolved Date Obesity, Class III, BMI 40-49.9 (morbid obesity) 08/22/2017 12/06/2018 documented as of this encounter (statuses as of 10/29/2021) [facility]2018 History of Past illness Narrative* Problem Noted Date Resolved Date Obesity, Class III, BMI 40-49.9 (morbid obesity) 08/22/2017 12/06/2018 documented as of this encounter (statuses as of 10/31/2021) [facility]2018 History of Past illness Narrative* Problem Noted Date Resolved Date Obesity, Class III, BMI 40-49.9 (morbid obesity) 08/22/2017 12/06/2018 documented as of this encounter (statuses as of 11/01/2021) [facility]2018 History of Past illness Narrative* Problem Noted Date Resolved Date Obesity, Class III, BMI 40-49.9 (morbid obesity) 08/22/2017 12/06/2018 documented as of this encounter (statuses as of 11/02/2021) [facility]2018 History of Past illness Narrative* Problem Noted Date Resolved Date Obesity, Class III, BMI 40-49.9 (morbid obesity) 08/22/2017 12/06/2018 documented as of this encounter (statuses as of 11/02/2021) [facility]2018 History of Past illness Narrative* Problem Noted Date Resolved Date Obesity, Class III, BMI 40-49.9 (morbid obesity) 08/22/2017 12/06/2018 documented as of this encounter (statuses as of 11/03/2021) [facility]2018 History of Past illness Narrative* Problem Noted Date Resolved Date Obesity, Class III, BMI 40-49.9 (morbid obesity) 08/22/2017 12/06/2018 documented as of this encounter (statuses as of 11/03/2021) [facility]2018 History of Past illness Narrative* Problem Noted Date Resolved Date Obesity, Class III, BMI 40-49.9 (morbid obesity) 08/22/2017 12/06/2018 documented as of this encounter (statuses as of 11/04/2021) [facility]2018 History of Past illness Narrative* Problem Noted Date Resolved Date Obesity, Class III, BMI 40-49.9 (morbid obesity) 08/22/2017 12/06/2018 documented as of this encounter (statuses as of 11/05/2021) [facility]2018 History of Past illness Narrative* Problem Noted Date Resolved Date Obesity, Class III, BMI 40-49.9 (morbid obesity) 08/22/2017 12/06/2018 documented as of this encounter (statuses as of 11/08/2021) [facility]2018 History of Past illness Narrative* Problem Noted Date Resolved Date Obesity, Class III, BMI 40-49.9 (morbid obesity) 08/22/2017 12/06/2018 documented as of this encounter (statuses as of 11/08/2021) [facility]2018 History of Past illness Narrative* Problem Noted Date Resolved Date Obesity, Class III, BMI 40-49.9 (morbid obesity) 08/22/2017 12/06/2018 documented as of this encounter (statuses as of 11/09/2021) [facility]2018 History of Past illness Narrative* Problem Noted Date Resolved Date Obesity, Class III, BMI 40-49.9 (morbid obesity) 08/22/2017 12/06/2018 documented as of this encounter (statuses as of 11/09/2021) [facility]2018 History of Past illness Narrative* Problem Noted Date Resolved Date Obesity, Class III, BMI 40-49.9 (morbid obesity) 08/22/2017 12/06/2018 documented as of this encounter (statuses as of 11/10/2021) [facility]2018 History of Past illness Narrative* Problem Noted Date Resolved Date Obesity, Class III, BMI 40-49.9 (morbid obesity) 08/22/2017 12/06/2018 documented as of this encounter (statuses as of 11/11/2021) [facility]2018 History of Past illness Narrative* Problem Noted Date Resolved Date Obesity, Class III, BMI 40-49.9 (morbid obesity) 08/22/2017 12/06/2018 documented as of this encounter (statuses as of 11/11/2021) [facility]2018 History of Past illness Narrative* Problem Noted Date Resolved Date Obesity, Class III, BMI 40-49.9 (morbid obesity) 08/22/2017 12/06/2018 documented as of this encounter (statuses as of 11/12/2021) [facility]2018 History of Past illness Narrative* Problem Noted Date Resolved Date Obesity, Class III, BMI 40-49.9 (morbid obesity) 08/22/2017 12/06/2018 documented as of this encounter (statuses as of 11/15/2021) [facility]2018 History of Past illness Narrative* Problem Noted Date Resolved Date Obesity, Class III, BMI 40-49.9 (morbid obesity) 08/22/2017 12/06/2018 documented as of this encounter (statuses as of 11/17/2021) [facility]2018 History of Past illness Narrative* Problem Noted Date Resolved Date Obesity, Class III, BMI 40-49.9 (morbid obesity) 08/22/2017 12/06/2018 documented as of this encounter (statuses as of 11/18/2021) [address]09-2018 History of Past illness Narrative* Problem Noted Date Resolved Date Obesity, Class III, BMI 40-49.9 (morbid obesity) 08/22/2017 12/06/2018 documented as of this encounter (statuses as of 11/19/2021) [facility]2018 History of Past illness Narrative* Problem Noted Date Resolved Date Obesity, Class III, BMI 40-49.9 (morbid obesity) 08/22/2017 12/06/2018 documented as of this encounter (statuses as of 11/22/2021) [facility]2018 History of Past illness Narrative* Problem Noted Date Resolved Date Obesity, Class III, BMI 40-49.9 (morbid obesity) 08/22/2017 12/06/2018 documented as of this encounter (statuses as of 11/23/2021) [facility]2018 History of Past illness Narrative* Problem Noted Date Resolved Date Obesity, Class III, BMI 40-49.9 (morbid obesity) 08/22/2017 12/06/2018 documented as of this encounter (statuses as of 11/23/2021) [facility]2018 History of Past illness Narrative* Problem Noted Date Resolved Date Obesity, Class III, BMI 40-49.9 (morbid obesity) 08/22/2017 12/06/2018 documented as of this encounter (statuses as of 11/23/2021) [facility]2018 History of Past illness Narrative* Problem Noted Date Resolved Date Obesity, Class III, BMI 40-49.9 (morbid obesity) 08/22/2017 12/06/2018 documented as of this encounter (statuses as of 11/23/2021) [facility]2018 History of Past illness Narrative* Problem Noted Date Resolved Date Obesity, Class III, BMI 40-49.9 (morbid obesity) 08/22/2017 12/06/2018 documented as of this encounter (statuses as of 11/24/2021) [facility]2018 History of Past illness Narrative* Problem Noted Date Resolved Date Obesity, Class III, BMI 40-49.9 (morbid obesity) 08/22/2017 12/06/2018 documented as of this encounter (statuses as of 11/25/2021) [facility]2018 History of Past illness Narrative* Problem Noted Date Resolved Date Obesity, Class III, BMI 40-49.9 (morbid obesity) 08/22/2017 12/06/2018 documented as of this encounter (statuses as of 11/25/2021) [facility]2018 History of Past illness Narrative* Problem Noted Date Resolved Date Obesity, Class III, BMI 40-49.9 (morbid obesity) 08/22/2017 12/06/2018 documented as of this encounter (statuses as of 11/26/2021) [facility]2018 History of Past illness Narrative* Problem Noted Date Resolved Date Obesity, Class III, BMI 40-49.9 (morbid obesity) 08/22/2017 12/06/2018 documented as of this encounter (statuses as of 11/29/2021) [facility]2018 History of Past illness Narrative* Problem Noted Date Resolved Date Obesity, Class III, BMI 40-49.9 (morbid obesity) 08/22/2017 12/06/2018 documented as of this encounter (statuses as of 11/29/2021) [facility]2018 History of Past illness Narrative* Problem Noted Date Resolved Date Obesity, Class III, BMI 40-49.9 (morbid obesity) 08/22/2017 12/06/2018 documented as of this encounter (statuses as of 12/01/2021) [facility]2018 History of Past illness Narrative* Problem Noted Date Resolved Date Obesity, Class III, BMI 40-49.9 (morbid obesity) 08/22/2017 12/06/2018 documented as of this encounter (statuses as of 12/02/2021) [facility]2018 History of Past illness Narrative* Problem Noted Date Resolved Date Obesity, Class III, BMI 40-49.9 (morbid obesity) 08/22/2017 12/06/2018 documented as of this encounter (statuses as of 12/03/2021) [facility]2018 History of Past illness Narrative* Problem Noted Date Resolved Date Obesity, Class III, BMI 40-49.9 (morbid obesity) 08/22/2017 12/06/2018 documented as of this encounter (statuses as of 12/03/2021) [facility]2018 History of Past illness Narrative* Problem Noted Date Resolved Date Obesity, Class III, BMI 40-49.9 (morbid obesity) 08/22/2017 12/06/2018 documented as of this encounter (statuses as of 12/06/2021) [facility]2018 History of Past illness Narrative* Problem Noted Date Resolved Date Obesity, Class III, BMI 40-49.9 (morbid obesity) 08/22/2017 12/06/2018 documented as of this encounter (statuses as of 12/07/2021) [facility]2018 History of Past illness Narrative* Problem Noted Date Resolved Date Obesity, Class III, BMI 40-49.9 (morbid obesity) 08/22/2017 12/06/2018 documented as of this encounter (statuses as of 12/08/2021) [facility]2018 History of Past illness Narrative* Problem Noted Date Resolved Date Obesity, Class III, BMI 40-49.9 (morbid obesity) 08/22/2017 12/06/2018 documented as of this encounter (statuses as of 12/08/2021) [facility]2018 History of Past illness Narrative* Problem Noted Date Resolved Date Obesity, Class III, BMI 40-49.9 (morbid obesity) 08/22/2017 12/06/2018 documented as of this encounter (statuses as of 12/09/2021) [facility]2018 History of Past illness Narrative* Problem Noted Date Resolved Date Obesity, Class III, BMI 40-49.9 (morbid obesity) 08/22/2017 12/06/2018 documented as of this encounter (statuses as of 12/10/2021) [facility]2018 History of Past illness Narrative* Problem Noted Date Resolved Date Obesity, Class III, BMI 40-49.9 (morbid obesity) 08/22/2017 12/06/2018 documented as of this encounter (statuses as of 12/12/2021) [facility]2018 History of Past illness Narrative* Problem Noted Date Resolved Date Obesity, Class III, BMI 40-49.9 (morbid obesity) 08/22/2017 12/06/2018 documented as of this encounter (statuses as of 12/13/2021) [facility]2018 History of Past illness Narrative* Problem Noted Date Resolved Date Obesity, Class III, BMI 40-49.9 (morbid obesity) 08/22/2017 12/06/2018 documented as of this encounter (statuses as of 12/15/2021) [facility]2018 History of Past illness Narrative* Problem Noted Date Resolved Date Obesity, Class III, BMI 40-49.9 (morbid obesity) 08/22/2017 12/06/2018 documented as of this encounter (statuses as of 12/16/2021) [facility]2018 History of Past illness Narrative* Problem Noted Date Resolved Date Obesity, Class III, BMI 40-49.9 (morbid obesity) 08/22/2017 12/06/2018 documented as of this encounter (statuses as of 12/26/2021) [facility]2018 History of Past illness Narrative* Problem Noted Date Resolved Date Obesity, Class III, BMI 40-49.9 (morbid obesity) 08/22/2017 12/06/2018 documented as of this encounter (statuses as of 12/30/2021) [facility]2018 History of Past illness Narrative* Problem Noted Date Resolved Date Obesity, Class III, BMI 40-49.9 (morbid obesity) 08/22/2017 12/06/2018 documented as of this encounter (statuses as of 12/30/2021) [facility]2018 History of Past illness Narrative* Problem Noted Date Resolved Date Obesity, Class III, BMI 40-49.9 (morbid obesity) 08/22/2017 12/06/2018 documented as of this encounter (statuses as of 01/06/2022) [facility]2018 History of Past illness Narrative* Problem Noted Date Resolved Date Obesity, Class III, BMI 40-49.9 (morbid obesity) 08/22/2017 12/06/2018 documented as of this encounter (statuses as of 01/11/2022) [facility]2018 History of Past illness Narrative* Problem Noted Date Resolved Date Obesity, Class III, BMI 40-49.9 (morbid obesity) 08/22/2017 12/06/2018 documented as of this encounter (statuses as of 01/16/2022) [facility]2018 History of Past illness Narrative* Problem Noted Date Resolved Date Obesity, Class III, BMI 40-49.9 (morbid obesity) 08/22/2017 12/06/2018 documented as of this encounter (statuses as of 01/16/2022) [facility]2018 History of Past illness Narrative* Problem Noted Date Resolved Date Obesity, Class III, BMI 40-49.9 (morbid obesity) 08/22/2017 12/06/2018 documented as of this encounter (statuses as of 01/17/2022) [facility]2018 History of Past illness Narrative* Problem Noted Date Resolved Date Obesity, Class III, BMI 40-49.9 (morbid obesity) 08/22/2017 12/06/2018 documented as of this encounter (statuses as of 01/17/2022) [facility]2018 History of Past illness Narrative* Problem Noted Date Resolved Date Obesity, Class III, BMI 40-49.9 (morbid obesity) 08/22/2017 12/06/2018 documented as of this encounter (statuses as of 01/18/2022) [facility]2018 History of Past illness Narrative* Problem Noted Date Resolved Date Obesity, Class III, BMI 40-49.9 (morbid obesity) 08/22/2017 12/06/2018 documented as of this encounter (statuses as of 01/19/2022) [facility]2018 History of Past illness Narrative* Problem Noted Date Resolved Date Obesity, Class III, BMI 40-49.9 (morbid obesity) 08/22/2017 12/06/2018 documented as of this encounter (statuses as of 01/26/2022) [facility]2018 History of Past illness Narrative* Problem Noted Date Resolved Date Obesity, Class III, BMI 40-49.9 (morbid obesity) 08/22/2017 12/06/2018 documented as of this encounter (statuses as of 01/30/2022) [facility]2018 History of Past illness Narrative* Problem Noted Date Resolved Date Obesity, Class III, BMI 40-49.9 (morbid obesity) 08/22/2017 12/06/2018 documented as of this encounter (statuses as of 02/01/2022) [facility]-09-2018 History of Past illness Narrative* Problem Noted Date Resolved Date Obesity, Class III, BMI 40-49.9 (morbid obesity) 08/22/2017 12/06/2018 documented as of this encounter (statuses as of 02/01/2022) [place] [address]-09-2018 History of Past illness Narrative* Problem Noted Date Resolved Date Obesity, Class III, BMI 40-49.9 (morbid obesity) 08/22/2017 12/06/2018 documented as of this encounter (statuses as of 02/15/2022) [facility]2018 History of Past illness Narrative* Problem Noted Date Resolved Date Obesity, Class III, BMI 40-49.9 (morbid obesity) 08/22/2017 12/06/2018 documented as of this encounter (statuses as of 02/24/2022) [facility]2018 History of Past illness Narrative* Problem Noted Date Resolved Date Obesity, Class III, BMI 40-49.9 (morbid obesity) 08/22/2017 12/06/2018 documented as of this encounter (statuses as of 03/14/2022) [facility]2018 History of Past illness Narrative* Problem Noted Date Resolved Date Obesity, Class III, BMI 40-49.9 (morbid obesity) 08/22/2017 12/06/2018 documented as of this encounter (statuses as of 03/21/2022) [facility]2018 History of Past illness Narrative* Problem Noted Date Resolved Date Obesity, Class III, BMI 40-49.9 (morbid obesity) 08/22/2017 12/06/2018 documented as of this encounter (statuses as of 03/22/2022) [facility]2018 History of Past illness Narrative* Problem Noted Date Resolved Date Obesity, Class III, BMI 40-49.9 (morbid obesity) 08/22/2017 12/06/2018 documented as of this encounter (statuses as of 03/23/2022) [facility]2018 History of Past illness Narrative* Problem Noted Date Resolved Date Obesity, Class III, BMI 40-49.9 (morbid obesity) 08/22/2017 12/06/2018 documented as of this encounter (statuses as of 03/24/2022) [facility]2018 History of Past illness Narrative* Problem Noted Date Resolved Date Obesity, Class III, BMI 40-49.9 (morbid obesity) 08/22/2017 12/06/2018 documented as of this encounter (statuses as of 03/28/2022) [facility]2018 History of Past illness Narrative* Problem Noted Date Resolved Date Obesity, Class III, BMI 40-49.9 (morbid obesity) 08/22/2017 12/06/2018 documented as of this encounter (statuses as of 04/20/2022) [facility] History of Past illness Narrative* Problem Noted Date Resolved Date Obesity, Class III, BMI 40-49.9 (morbid obesity) 08/22/2017 12/06/2018 documented as of this encounter (statuses as of 04/27/2022) [facility] History of Past illness Narrative* Problem Noted Date Resolved Date Obesity, Class III, BMI 40-49.9 (morbid obesity) 08/22/2017 12/06/2018 documented as of this encounter (statuses as of 05/02/2022) [facility] History of Past illness Narrative* Problem Noted Date Resolved Date Obesity, Class III, BMI 40-49.9 (morbid obesity) 08/22/2017 12/06/2018 documented as of this encounter (statuses as of 05/04/2022) [facility] History of Past illness Narrative* Problem Noted Date Resolved Date Obesity, Class III, BMI 40-49.9 (morbid obesity) 08/22/2017 12/06/2018 documented as of this encounter (statuses as of 05/05/2022) [facility] History of Past illness Narrative* Problem Noted Date Resolved Date Obesity, Class III, BMI 40-49.9 (morbid obesity) 08/22/2017 12/06/2018 documented as of this encounter (statuses as of 05/05/2022) [facility] History of Past illness Narrative* Problem Noted Date Resolved Date Obesity, Class III, BMI 40-49.9 (morbid obesity) 08/22/2017 12/06/2018 documented as of this encounter (statuses as of 06/06/2022) [facility]2018 History of Past illness Narrative* Problem Noted Date Resolved Date Obesity, Class III, BMI 40-49.9 (morbid obesity) 08/22/2017 12/06/2018 documented as of this encounter (statuses as of 07/06/2022) [facility]2018 History of Past illness Narrative* Problem Noted Date Resolved Date Obesity, Class III, BMI 40-49.9 (morbid obesity) 08/22/2017 12/06/2018 documented as of this encounter (statuses as of 07/07/2022) [facility]2018 History of Past illness Narrative* Problem Noted Date Resolved Date Obesity, Class III, BMI 40-49.9 (morbid obesity) 08/22/2017 12/06/2018 documented as of this encounter (statuses as of 07/21/2022) [facility]2018 History of Past illness Narrative* Problem Noted Date Resolved Date Obesity, Class III, BMI 40-49.9 (morbid obesity) 08/22/2017 12/06/2018 documented as of this encounter (statuses as of 07/25/2022) [facility] note* Diagnosis S/P CABG x 4- Primary Postsurgical aortocoronary bypass status Type 2 diabetes mellitus without complication, without long-term current use of insulin (HCC) documented in this encounter [facility] note* Diagnosis S/P CABG x 4 Postsurgical aortocoronary bypass status documented in this encounter [facility] note* Diagnosis Prostate cancer (HCC) Malignant neoplasm of prostate documented in this encounter [facility] note* Diagnosis Prostate cancer (HCC)- Primary Malignant neoplasm of prostate documented in this encounter [facility] note* Diagnosis Prostate cancer (HCC)- Primary Malignant neoplasm of prostate documented in this encounter [facility] note* Diagnosis Prostate cancer (HCC) Malignant neoplasm of prostate [facility] Diagnosis Onset Date Resolution Status Abnormal stress test acute Angina pectoris acute Aortic valve disorder acute Cardiomyopathy acute Chest pain acute HLD (hyperlipidemia) acute Nonspecific ST-T wave electrocardiographic changes acute Cardiomyopathy acute History of coronary artery bypass surgery May, acute HLD (hyperlipidemia) acute [facility] Work Phone: Evaluation note* Diagnosis Onset Date Resolution Status Abnormal stress test acute Angina pectoris acute Aortic valve disorder acute Cardiomyopathy acute Chest pain acute HLD (hyperlipidemia) acute Nonspecific ST-T wave electrocardiographic changes acute Cardiomyopathy acute History of coronary artery bypass surgery May, acute HLD (hyperlipidemia) acute Diabetes chronic Obesity (BMI 30-39.9) [facility] Work Phone: Evaluation note* Diagnosis Type 2 diabetes mellitus without complication, without long-term current use of insulin (HCC)- Primary S/P CABG x 4 Postsurgical aortocoronary bypass status NSTEMI (non-ST elevated myocardial infarction) (HCC) Acute myocardial infarction, subendocardial infarction, episode of care unspecified Obesity, Class II, BMI 35-39.9 Obesity, unspecified Prostate cancer (HCC) Malignant neoplasm of prostate Iron deficiency anemia, unspecified iron deficiency anemia type [facility] Pro[facility] cancer (HCC)- Primary Malignant neoplasm of prostate [facility] Prostate cancer (HCC) Malignant neoplasm of prostate [facility] Diagnosis Trochanteric bursitis of left hip- Primary Enthesopathy of hip region S/P CABG x 4 Postsurgical aortocoronary bypass status NSTEMI (non-ST elevated myocardial infarction) (HCC) Acute myocardial infarction, subendocardial infarction, episode of care unspecified Prostate cancer (HCC) Malignant neoplasm of prostate Popping sound of knee joint [facility] Prostate cancer (HCC)- Primary Malignant neoplasm of prostate [facility] Diagnosis Prostate cancer (HCC)- Primary Malignant neoplasm of prostate [facility] Diagnosis Prostate cancer (HCC)- Primary Malignant neoplasm of prostate [facility] Diagnosis Abscess of scrotal wall- Primary Other inflammatory disorder of male genital organs [facility] Diagnosis Prostate cancer (HCC)- Primary Malignant neoplasm of prostate [facility] Diagnosis Abscess of scrotal wall Other inflammatory disorder of male genital organs [facility] Diagnosis Cyst of scrotum- Primary Sebaceous cyst Abscess of scrotal wall Other inflammatory disorder of male genital organs [facility] Diagnosis Scrotal wall abscess- Primary Other inflammatory disorder of male genital organs [facility] Diagnosis Type 2 diabetes mellitus without complication, with long-term current use of insulin (HCC) [facility] Diagnosis Prostate cancer (HCC)- Primary Malignant neoplasm of prostate [facility] Diagnosis Abscess of scrotal wall Other inflammatory disorder of male genital organs [facility] Diagnosis Prostate cancer (HCC)- Primary Malignant neoplasm of prostate [facility]* Diagnosis Lung nodules Other nonspecific abnormal finding of lung field [facility]* Diagnosis Lung nodule- Primary Solitary pulmonary nodule [facility]* Diagnosis Type 2 diabetes (HCC)- Primary JOANNA (acute kidney injury) (HCC) Acute kidney failure, unspecified [facility]* Diagnosis Type 2 diabetes mellitus without complication, with long-term current use of insulin (HCC) [facility]* Diagnosis Type 2 diabetes mellitus without complication, with long-term current use of insulin (HCC) [facility]* Diagnosis Type 2 diabetes mellitus without complication, without long-term current use of insulin (HCC) [facility]* Diagnosis Hyperlipidemia, mixed Mixed hyperlipidemia [facility]* Diagnosis Type 2 diabetes mellitus without complication, with long-term current use of insulin (HCC) [facility]* Diagnosis Type 2 diabetes mellitus without complication, without long-term current use of insulin (HCC) Hyperlipidemia, mixed Mixed hyperlipidemia [facility]* Diagnosis Type 2 diabetes mellitus without complication, without long-term current use of insulin (HCC)- Primary [facility]* Diagnosis Type 2 diabetes mellitus without complication, without long-term current use of insulin (HCC) Hyperlipidemia, mixed Mixed hyperlipidemia documented in this encounter [facility] note* Diagnosis Prostate cancer (HCC)- Primary Malignant neoplasm of prostate [facility] Diagnosis Type 2 diabetes mellitus without complication, without long-term current use of insulin (HCC) Hyperlipidemia, mixed Mixed hyperlipidemia documented in this encounter [facility] noteNo assessment information [facility]ol[facility] Work Phone[facility]* Diagnosis Prostate cancer (HCC)- Primary Malignant neoplasm of prostate [facility] Diagnosis Type 2 diabetes mellitus without complication, without long-term current use of insulin (HCC) documented in this encounter [facility] note* Diagnosis Type 2 diabetes mellitus without complication, without long-term current use of insulin (HCC) documented in this encounter [facility] note* Diagnosis Type 2 diabetes mellitus with other specified complication, without long-term current use of insulin (HCC)- Primary Mixed hyperlipidemia Coronary artery disease involving navajo coronary artery of nav[place] heart without angina pectoris NSTEMI (non-ST elevated myocardial infarction) (HCC) Acute myocardial infarction, subendocardial infarction, episode of care unspecified Prostate cancer (HCC) Malignant neoplasm of prostate Obesity, Class II, BMI 35-39.9 Obesity, unspecified Acute pain of right knee Chronic systolic (congestive) heart failure (HCC) 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) Aortic valve stenosis, etiology of cardiac valve disease unspecified documented in this encounter [facility] note* Diagnosis Prostate cancer (HCC)- Primary Malignant neoplasm of prostate documented in this encounter [facility] note* Diagnosis Type 2 diabetes mellitus with other specified complication, without long-term current use of insulin (HCC) documented in this encounter [facility] note* Diagnosis Type 2 diabetes mellitus without complication, with long-term current use of insulin (HCC) documented in this encounter [facility] note* Diagnosis Diabetes mellitus type 2, insulin dependent (HCC)- Primary Type II or unspecified type diabetes mellitus without mention of complication, not stated as uncontrolled documented in this encounter [facility] note* Diagnosis 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) History of cigarette smoking documented in this encounter [facility] note* Diagnosis Type 2 diabetes mellitus without complication, with long-term current use of insulin (HCC) Type 2 diabetes mellitus with other specified complication, without long-term current use of insulin (HCC) documented in this encounter [facility] note* Diagnosis Type 2 diabetes mellitus without complication, with long-term current use of insulin (HCC)- Primary Hypertension, unspecified type Hyperlipidemia, mixed Mixed hyperlipidemia Coronary artery disease involving [place] coronary artery of nav[place] heart without angina pectoris NSTEMI (non-ST elevated myocardial infarction) (HCC) Acute myocardial infarction, subendocardial infarction, episode of care unspecified Prostate cancer (HCC) Malignant neoplasm of prostate Screening for depression Encounter for screening examination for other mental health and behavioral disorders Type 2 diabetes mellitus without complication, without long-term current use of insulin (HCC) [facility]* Diagnosis Type 2 diabetes mellitus without complication, with long-term current use of insulin (HCC) Type 2 diabetes mellitus with other specified complication, without long-term current use of insulin (HCC) [facility]* Diagnosis Prostate cancer (HCC)- Primary Malignant neoplasm of prostate [facility]* Diagnosis Type 2 diabetes mellitus without complication, without long-term current use of insulin (HCC) [facility]* Diagnosis Abdominal wall hernia- Primary Ventral hernia, unspecified, without mention of obstruction or gangrene Need for vaccination Need for prophylactic vaccination and inoculation against unspecified single disease [facility]* Diagnosis Abdominal wall hernia Ventral hernia, unspecified, without mention of obstruction or gangrene [facility]* Diagnosis Abdominal wall hernia Ventral hernia, unspecified, without mention of obstruction or gangrene [facility]* Diagnosis Type 2 diabetes mellitus without complication, with long-term current use of insulin (HCC) Type 2 diabetes mellitus with other specified complication, without long-term current use of insulin (HCC) Abdominal wall hernia Ventral hernia, unspecified, without mention of obstruction or gangrene [facility]* Diagnosis Pre-op evaluation- Primary Preoperative examination, unspecified 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) Aortic valve stenosis, etiology of cardiac valve disease unspecified History of prostate cancer Personal history of malignant neoplasm of prostate Former smoker Personal history of tobacco use, presenting hazards to health Chronic systolic (congestive) heart failure (HCC) Mixed hyperlipidemia Type 2 diabetes mellitus with other specified complication, without long-term current use of insulin (HCC) SCCA (squamous cell carcinoma) of skin Basal cell carcinoma (BCC) of skin of left lower extremity including hip Snoring Other dyspnea and respiratory abnormality Morbid obesity (HCC) Morbid obesity Hypertension, unspecified type Abdominal wall hernia Ventral hernia, unspecified, without mention of obstruction or gangrene * Assessment & Plan Note - Forrest Mejia APRN.[facility] - 05/20/2024 8:56 AM ESTAssociated Problem(s): HTN (hypertension) Managed with Lisinopril and Metoprolol BP not taken, seen virtual Per epic 04/02/24 BP 152/85 * Assessment & Plan Note - Forrest Mejia APRN.CNP - 05/20/2024 8:48 AM ESTAssociated Problem(s): Morbid obesity (HCC) * Assessment & Plan Note - Forrest Mejia APRN.CNP - 05/20/2024 8:47 AM ESTAssociated Problem(s): Snoring BANG score 5 Instructed to follow up with PCP for further evaluation * Assessment & Plan Note - Forrest Mejia APRN.CNP - 05/20/2024 8:41 AM ESTAssociated Problem(s): Basal cell carcinoma (BCC) of skin of lower extremity including hip Located on left koehler Treated with excision Seen previously by Derm, seen last year * Assessment & Plan Note - Forrest Mejia APRN.CNP - 05/20/2024 8:41 AM ESTAssociated Problem(s): SCCA (squamous cell carcinoma) of skin Located on back Treated with Mohs Seen previously by Derm, seen last year * Assessment & Plan Note - Forrest Mejia APRN.CNP - 05/20/2024 8:37 AM ESTAssociated Problem(s): Type 2 diabetes mellitus, without long-term current use of insulin (HCC) Managed with Metformin and MOUNJARO 05/19/24 A1c 4.7 Followed by PCP * Assessment & Plan Note - Forrest Mejia APRN.CNP - 05/20/2024 8:35 AM ESTAssociated Problem(s): Mixed hyperlipidemia Managed with Atorvastatin * Assessment & Plan Note - Forrest Mejia APRN.CNP - 05/20/2024 8:34 AM ESTAssociated Problem(s): Chronic systolic (congestive) heart failure (HCC) Followed by cardiology Denies any SOB, edema or exacerbations 12/24/23 ECHO EF 55% * Assessment & Plan Note - Forrest Mejia APRN.CNP - 05/20/2024 8:31 AM ESTAssociated Problem(s): Former smoker Reports + Former smoker on and off x 10 years. Quit 2010 * Assessment & Plan Note - Forrest Mejia APRN.CNP - 05/20/2024 8:11 AM ESTAssociated Problem(s): History of prostate cancer S/P proctectomy and radiation , no chemotherapy Followed by urology * Assessment & Plan Note - Forrest Mejia APRN.CNP - 05/20/2024 8:09 AM ESTAssociated Problem(s): Aortic valve stenosis 12/24/2023 ECHO showed moderate , EF 55% * Assessment & Plan Note - Forrest Mejia APRN.CNP - 05/20/2024 8:02 AM ESTAssociated Problem(s): 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) Followed by cardiology [facility] Lucy Madrigal H/O NSTEMI 06/08/2021 S/P CABG X 4 No Stents 06/23/2021 Stress Test 12/24/2023 ECHO showed moderate , EF 55% Denies any cardiac symptoms [facility]* Diagnosis Pre-op evaluation- Primary Preoperative examination, unspecified 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) Aortic valve stenosis, etiology of cardiac valve disease unspecified History of prostate cancer Personal history of malignant neoplasm of prostate Former smoker Personal history of tobacco use, presenting hazards to health Chronic systolic (congestive) heart failure (HCC) Mixed hyperlipidemia Type 2 diabetes mellitus with other specified complication, without long-term current use of insulin (HCC) SCCA (squamous cell carcinoma) of skin Basal cell carcinoma (BCC) of skin of left lower extremity including hip Snoring Other dyspnea and respiratory abnormality Morbid obesity (HCC) Morbid obesity Hypertension, unspecified type Type 2 diabetes mellitus with other specified complication, without long-term current use of insulin (HCC)- Primary Chronic systolic (congestive) heart failure (HCC) Prostate cancer (HCC) Malignant neoplasm of prostate 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) Mixed hyperlipidemia Hypertension, unspecified type Abdominal wall hernia Ventral hernia, unspecified, without mention of obstruction or gangrene [facility] Diagnosis Pre-op evaluation- Primary Preoperative examination, unspecified 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) Aortic valve stenosis, etiology of cardiac valve disease unspecified History of prostate cancer Personal history of malignant neoplasm of prostate Former smoker Personal history of tobacco use, presenting hazards to health Chronic systolic (congestive) heart failure (HCC) Mixed hyperlipidemia Type 2 diabetes mellitus with other specified complication, without long-term current use of insulin (HCC) SCCA (squamous cell carcinoma) of skin Basal cell carcinoma (BCC) of skin of left lower extremity including hip Snoring Other dyspnea and respiratory abnormality Morbid obesity (HCC) Morbid obesity Hypertension, unspecified type Type 2 diabetes mellitus without complication, without long-term current use of insulin (HCC) Hyperlipidemia, mixed Mixed hyperlipidemia [facility] Diagnosis Pre-op evaluation- Primary Preoperative examination, unspecified 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) Aortic valve stenosis, etiology of cardiac valve disease unspecified History of prostate cancer Personal history of malignant neoplasm of prostate Former smoker Personal history of tobacco use, presenting hazards to health Chronic systolic (congestive) heart failure (HCC) Mixed hyperlipidemia Type 2 diabetes mellitus with other specified complication, without long-term current use of insulin (HCC) SCCA (squamous cell carcinoma) of skin Basal cell carcinoma (BCC) of skin of left lower extremity including hip Snoring Other dyspnea and respiratory abnormality Morbid obesity (HCC) Morbid obesity Hypertension, unspecified type Abdominal wall hernia- Primary Ventral hernia, unspecified, without mention of obstruction or gangrene [facility] Diagnosis Pre-op evaluation- Primary Preoperative examination, unspecified Atherosclerotic heart disease of [place] coronary artery with other forms of angina pectoris Aortic valve stenosis, etiology of cardiac valve disease unspecified History of prostate cancer Personal history of malignant neoplasm of prostate Former smoker Personal history of tobacco use, presenting hazards to health Chronic systolic (congestive) heart failure (HCC) Mixed hyperlipidemia Type 2 diabetes mellitus with other specified complication, without long-term current use of insulin (HCC) SCCA (squamous cell carcinoma) of skin Basal cell carcinoma (BCC) of skin of left lower extremity including hip Snoring Other dyspnea and respiratory abnormality Morbid obesity (HCC) Morbid obesity Hypertension, unspecified type Screening for colon cancer Special screening for malignant neoplasms, colon [facility] Diagnosis Pre-op evaluation- Primary Preoperative examination, unspecified Atherosclerotic heart disease of [place] coronary artery with other forms of angina pectoris Aortic valve stenosis, etiology of cardiac valve disease unspecified History of prostate cancer Personal history of malignant neoplasm of prostate Former smoker Personal history of tobacco use, presenting hazards to health Chronic systolic (congestive) heart failure (HCC) Mixed hyperlipidemia Type 2 diabetes mellitus with other specified complication, without long-term current use of insulin (HCC) SCCA (squamous cell carcinoma) of skin Basal cell carcinoma (BCC) of skin of left lower extremity including hip Snoring Other dyspnea and respiratory abnormality Morbid obesity (HCC) Morbid obesity Hypertension, unspecified type History of colonic polyps- Primary Personal history of colonic polyps Screening for colon cancer Special screening for malignant neoplasms, colon [facility] Diagnosis Pre-op evaluation- Primary Preoperative examination, unspecified Atherosclerotic heart disease of [place] coronary artery with other forms of angina pectoris Aortic valve stenosis, etiology of cardiac valve disease unspecified History of prostate cancer Personal history of malignant neoplasm of prostate Former smoker Personal history of tobacco use, presenting hazards to health Chronic systolic (congestive) heart failure (HCC) Mixed hyperlipidemia Type 2 diabetes mellitus with other specified complication, without long-term current use of insulin (HCC) SCCA (squamous cell carcinoma) of skin Basal cell carcinoma (BCC) of skin of left lower extremity including hip Snoring Other dyspnea and respiratory abnormality Morbid obesity (HCC) Morbid obesity Hypertension, unspecified type Type 2 diabetes mellitus with other specified complication, without long-term current use of insulin (HCC) documented in this encounter [facility] note* Diagnosis Pre-op evaluation- Primary Preoperative examination, unspecified Atherosclerotic heart disease of [place] coronary artery with other forms of angina pectoris Aortic valve stenosis, etiology of cardiac valve disease unspecified History of prostate cancer Personal history of malignant neoplasm of prostate Former smoker Personal history of tobacco use, presenting hazards to health Chronic systolic (congestive) heart failure (HCC) Mixed hyperlipidemia Type 2 diabetes mellitus with other specified complication, without long-term current use of insulin (HCC) SCCA (squamous cell carcinoma) of skin Basal cell carcinoma (BCC) of skin of left lower extremity including hip Snoring Other dyspnea and respiratory abnormality Morbid obesity (HCC) Morbid obesity Hypertension, unspecified type Type 2 diabetes mellitus without complication, with long-term current use of insulin (HCC) documented in this encounter [facility] note* Diagnosis Onset Date Resolution Status Admit Date Syncope acute December 4:22pm [facility] Work Phone: History and physical note Author Hailee Hull [facility] Note Date/Time December 29, 2024 4:40pm [facility] Medical Records Department [address] [place] [address] H&P Exam - Hospitalist 12/29/24 1622 MR#: [id number] Acct: [id number] Name: REGINALD VAUGHN Rep #:[id number] : 1950 74 From: Hailee Hull MD PCP: Dr. Dixon Valadez MD Status:AD M IN Location: [facility] [id number] HPI - General General Date of Admission: 12/29/24 Date of Service: 12/29/24 Chief Complaint: 30 syncopal episodes HPI Narrative REGINALD VAUGHN, is a 74-year-old male with a history of coronary artery disease with CABG [address] [facility], aortic valve stenosis, diabetes, hypertension who presented to [facility] ED 12/29/2024 for syncope. Reportedly had an appointment with [facility] today at 230 but this morning when he was in the shower he got lightheaded and had a syncopalepisode but did not hit his head. He was able to get up on his own but when he was then drying his hair he had another syncopal episode without any lightheadedness prior to event. When he woke up he called EMS but when he was moving over to cot he again lost consciousness. In the ED he is back at baseline. Denied any chest pain or shortness of breath. In the ED temp 97.5, heart rate of 87, blood pressure 146/85, respiratory 24 pulse ox 98% on room air. CBC with white count 8.4 and hemoglobin 13.7, BMP BUN of 21 creatinine 0.4with a glucose of 112. Troponin of 58. TSH 1.[address] head with chronic changes, CT cervical spine with no acute process, chest x-ray with mild cardiac enlargement. ED physician discussed with [facility] physician on-call who recommended admission for telemetry monitoring and echo. Hospitalist contacted admission. Patient evaluated at bedside. He reports history as above with for syncopal episode in the shower preceded by lightheadedness and the following 2 episodes without any preceding symptoms. Notes that he used his Apple Watch after for syncopal episode and his heart ratewas 80s to 90s which is elevated for him, after the second his heart rate was 45-50 range. Denies any chest pain or shortness of breath, presently back to baseline with no new or acute complaints. Denies any history of syncopal episodes prior to today. Denies any shortness of breath on exertion or chest pain. [facility] Medical History Avulsion of skin of toe Facial cellulitis Acute kidney injury Elevated blood pressure reading Obesity (BMI 30-39.9) Diabetes History of left heart catheterization (LHC) (~06/02/21) Atherosclerotic heart disease of [place] coronary artery without angina pectoris HLD (hyperlipidemia) Aortic valve disorder Cardiomyopathy Angina pectoris Nonspecific ST-T wave electrocardiographic changes Chest pain Acute UTI Intractable pain Orchitis Acute epididymitis Orchitis and epididymitis Tendinitis of extensor tendon of right hand High cholesterol History of prostate cancer History of skin cancer Home Medications ?Medication ?Instructions ?Recorded ?Last Taken ?Type aspirin 81 mg tablet,delayed 81 mg PO DAILY 06/13/21 0 12/29/24 History release (Adult Low Dose Aspirin) folic acid 1 mg tablet 1 mg PO DAILY 06/13/2112/29 History acetaminophen 500 mg tablet 1,000 mg PO BID PRN Pain 0 11/14/22 12/29/24 History tirzepatide 15 mg/0.5 mL 15 mg (0.5 mL) subcut QWEEK #2 mL 03/29/23 12/28/24 Rx subcutaneous pen injector (Elsa) atorvastatin 40 mg tablet 40 mg PO DAILY cholesterol # 90 tabs 04/30/23 12/28/24 Rx metoprolol tartrate 50 mg tablet 50 mg PO BID #180 tab s 04/30/23 12/29/24 Rx lisinopril 10 mg tablet 10 mg PO DAILY #90 tabs 05/1812/29/24 Rx blood sugar diagnostic (FreeStyle 12/29/24 Unknown Hi story Lite Strips) lancets 28 gauge (FreeStyle 12/29/24 Unknown History Lancets) metformin 500 mg tablet,extended 500 mg PO BID 5 12/29/24 History release 24 hr Allergy/AdvReac Type Severity Reaction Status Date / Time cephalexin AdvReac Pain in Verified 12/29/24 14:25 joints Family History Other Cancer Diabetes Surgical History History of coronary artery bypass surgery (~06/08/21) H/O prostatectomy Social History household members: none housing: apartment Smoking Status: Former smoker ROS ROS Narrative General: Denies fever/chills HENT: Denies headache, denies stuffy nose, denies sore throat EYES: Denies changes in vision Resp: Denies cough, denies shortness of breath Cardiac: Denies chest pain GI: Denies abdominal pain, denies changes in bowel, denies nausea/vomiting : Denies changes in urination Extremity: Denies swelling MSK: Denies weakness Neuro: Denies any numbness/tingling, syncopal episodes x 3 Heme: Denies any bleeding or bruising Skin: Denies rashes Psychiatric: No complaints voiced Vital Signs Vital Signs Vital Signs: 12/29/24 14:19 12/29/24 14:26 12/29/24 15:33 Temperature 97.5 F L Temperature Source Axillary Pulse Rate 87 83 Respiratory Rate 24 H 14 Respiratory Effort Normal Non-Labored Respiratory Pattern Normal Blood Pressure 146/85 H 113/72 Blood Pressure Mean 105 85 Pulse Ox 98 99 Oxygen Delivery Method Room Air 12/29/24 15:45 12/29/24 16:00 Temperature Temperature Source Pulse Rate 82 84 Respiratory Rate 25 H 21 H Respiratory Effort Respiratory Pattern Blood Pressure Blood Pressure Mean Pulse Ox 95 97 Oxygen Delivery Method Weight Weight: 106 kg Body Mass Index (BMI) 34.4 Physical Exam Narrative General: Alert, oriented, no apparent distress HEENT: Atraumatic, normocephalic Eyes: Anicteric, normal conjunctiva, extraocular movements grossly intact Neck: Supple Respiratory: Clear to auscultation bilaterally, normal respiratory effort Cardiovascular: Regular rate and rhythm, does have systolic ejection murmur at upper sternal borders GI: Soft, nontender, nondistended Extremities: No edema Musculoskeletal: Moving all extremities Neuro: No overt focal neurological deficits Skin: No rashes appreciated Psych: Cooperative Results Lab / Micro Data 12/29/24 14:31 12/29/24 14:31 Labs: Laboratory Results - last 24 hr 12/29/24 14:31: WBC 8.4, RBC 4.64, Hgb 13.7, Hct 41.0, MCV 88.4, MCH 29.5, MCHC 33.4, RDW Std Deviation 41.1, RDW Coeff of Khoa 12.7, Plt Count 189, MPV 9.9, Immature Gran % (Auto) 0.400, Neut % (Auto) 86.0 H, Lymph % (Auto) 7.8 L, [place] %(Auto) 4.8, Eos % (Auto) 0.6, Baso % (Auto) 0.4, Absolute Neuts (auto) 7.2, Absolute Lymphs (auto) 0.66 L, Nucleated RBC % 0, PT 13.7, INR 1.0, APTT 26.1, Sodium 141, Potassium 4.3, Chloride 106, Carbon Dioxide 20.8 L, Anion Gap 14, BUN 21 H, Creatinine 0.84, Estim Creat Clear Calc 92.56, Est GFR (MDRD) Non-Af 92, BUN/Creatinine Ratio 25.1 H, Glucose 112 H, Calcium 9.3, Magnesium 2.0, Troponin T High Sens 58 H*, TSH 1.490 Imaging Radiology Impression Brain CT 12/29/24 14:25 IMPRESSION: CHRONIC CHANGES. NO ACUTE FINDINGS. Reading Location: [facility] 12/29/24 14:25 IMPRESSION: No acute injury to the cervical spine. Reading Location: [id number] Chest X-Ray 12/29/24 14:55 IMPRESSION: Mild cardiac enlargement. Reading Location: [id number] Assessment & Plan Assessment/Plan (1) Syncope: PLAN: Plan # Multiple syncopal episodes -Patient had 3 syncopal episodes in a short period of time 2 of which had no prodromal symptoms -Concerning for cardiac syncope -CT head no acute process -EKG normal sinus rhythm with some possible ST depressions in lead I and aVL with no ST elevation or dysrhythmia -Cardiology recommended admission for telemetry and echocardiogram -Monitor on telemetry -Obtain echocardiogram -Orthostats ordered as well but less likely culprit -Will check TSH # Elevated troponin -First troponin of 58 -Patient had syncopal episode, no chest pain or shortness of breath -Unclear significance but does lend area of cardiac syncope -Trend troponins #Hx of CAD -w/ previous CABG [address] [facility] -Continue home statin, aspirin, beta-babs #Type 2 diabetes mellitus -Glucose checks and sliding scale insulin - Hold home oral hypoglycemics #Hypertension - Blood pressure most recently 98/79 - Will decrease metoprolol on hold lisinopril for now #DVT ppx: SCDs Hailee Hull MD Charges/Coding Visit Charges Inpatient E&M: 22272 Init Hosp L2 12/29/24 1640 <Electronically signed by Hailee Hull MD> Cosigner Signature (if applicable): CC: Dr. Dixon Valadez MD; Dr. Hailee Hull MD~ Signed [facility] Work Phone: Patient's home Plan of care note* Visit Details Visit Type -SN ROUTINE Discipline -Fpc Problems Problem Description Start Date Status Goals Interve ntions Medication Education Disciplines: Skilled Services 06/15/2021 Active 1 goal linked to scheduled/documente d intervention 1 goal intervention scheduled/documente d in this visit Physician Specific Parameters Disciplines: Skilled Services 06/15/2021 Active 1 goal linked to scheduled/documente d intervention 1 goal intervention scheduled/documente d in this visit Risk for Falls Disciplines: Skilled Services 06/15/2021 Active 1 goal linked to scheduled/documente d intervention 1 goal intervention scheduled/documente d in this visit Diabetic Foot Care Disciplines: Skilled Services 06/15/2021 Active 1 goal linked to scheduled/documente d intervention 1 goal intervention scheduled/documente d in this visit Discharge Disciplines: Skilled Services 06/15/2021 Active 1 goal linked to scheduled/documente d intervention 1 goal intervention scheduled/documente d in this visit SN Cardiac Procedure/Surge ry Disciplines: SN 06/15/2021 Active 1 goal linked to scheduled/documente d intervention 1 goal intervention scheduled/documente d in this visit SN Diabetes Disciplines: SN 06/15/2021 Active 1 goal linked to scheduled/documente d intervention 2 goal interventions scheduled/documente d in this visit SN Learning Assessment Disciplines: SN 06/17/2021 Active 1 goal linked to scheduled/documente d intervention 1 goal intervention scheduled/documente d in this visit Goals Goal Associated Problem Outcome Goal Met? Visit Notes Patient/caregiver will demonstrate ability to obtain, store, identify and administer ordered medications, keep accurate medication list in home, and adhere to medication schedule Medication Education No Patient to maintain parameters within physician-specified ranges Physician Specific Parameters No Manage Risk for falls Description: Patient/caregiver will verbalize knowledge of individualized fall prevention strategies by 07-23-21. Risk for Falls No Manage diabetic foot care Description: Patient/caregiver will demonstrate basic understanding of and compliance with diabetic self-care management as evidenced by verbalizing purpose of daily foot care and assessment by 07-23-21 Diabetic Foot Care No Manage discharge planning Description: Patient/caregiver will verbalize understanding of ongoing discharge plan provided related to disease management, arrangements for outpatient and/or community services, obtaining medications, supplies, and DME, as needed. Discharge No Patient/caregiver understands all aspects of aftercare post cardiac procedure/surgery Description: Patient/Caregiver to verbalize and demonstrate understanding of aftercare post cardiac procedure/surgery by 07-23-21. SN Cardiac Procedure/Surgery No Improved management of diabetes Description: Improve diabetic management as evidenced by patient/caregiver able to teach back 1 diabetic management strategies by 07-23-21. SN Diabetes No Demonstrate understanding of education Description: Patient and/or caregiver will verbalize understanding of educational instruction provided. SN Learning Assessment No Interventions Intervention Associated Problem/Goal Status Variance Visit Notes Medication Education Description: Evaluate/instruct patient/caregiver on obtaining, storing, identifying and administering ordered medications as well as keeping accurate medication list in the home and adhereing to medication schedule Problem:Medication Education Goal:Patient/caregive r will demonstrate ability to obtain, store, identify and administer ordered medications, keep accurate medication list in home, and adhere to medication schedule Completed Patient instructed on importance of keeping accurate medication list in home, adhering to medication schedule and proper storage of medications. SPO2 Description: Notify Dr. Valadez if pulse ox is <92% at rest. Problem:Physician Specific Parameters Goal:Patient to maintain parameters within physician-specified ranges Completed Instruct on individual fall risk factors and strategies to prevent falls and injuries caused by falls. Problem:Risk for Falls Goal:Manage Risk for falls Completed SN: Patient instructed on Eliminating Environmental Hazards: Keep pathways clear, Keep rooms and walkways well lit, Wear supportive shoes or non-skid socks and Keep frequently used items within reach Monitor lower extremities for skin lesions and educate on proper foot care Problem:Diabetic Foot Care Goal:Manage diabetic foot care Completed patient instructed on diabetic foot care including daily skin inspection, wearing proper footwear/avoiding going barefoot, wash/dry feet thoroughly, applying moisturizer, avoiding between toes and toenail care. Instruct on ongoing discharge plan Problem:Discharge Goal:Manage discharge planning Completed Ongoing Discharge plan: Discharge plan discussed with patient including frequency and duration for home SN and plan for transition to: live independently at home without ongoing services. Assess/instruct aftercare cardiac procedure Description: Patient recently had CABG. Problem:SN Cardiac Procedure/Surgery Goal:Patient/caregive r understands all aspects of aftercare post cardiac procedure/surgery Completed patient assessed and reinforced on keeping all incisions clean with mild soap and water and leave open to air. Instruct on diabetes disease process and management of chronic condition Description: Patient has new diagnosis of diabetes. Problem:SN Diabetes Goal:Improved management of diabetes Completed patient assessed and reinforced on diabetes disease process as found in the diabetes self-care booklets. Ensure patient/caregiver has Living with Diabetes Booklet in home Description: SN to provide and refer to diabetes education booklet every visit. Problem:SN Diabetes Goal:Improved management of diabetes Completed Patient has diabetes self-care booklet. Instruct and educate on knowledge deficits Problem:SN Learning Assessment Goal:Demonstrate understanding of education Completed patient verbalize and/or demonstrate understanding of nursing education completed today. Education methods include: verbal cues. Further education required to improve knowledge and compliance with fall prevention/home safety strategies and incision/wound care management. documented in this encounter [facility]'s home Plan of care note* Visit Details Visit Type -SN AGENCY DC W V ISIT Discipline -Fpc Problems Problem Description Start Date Status Goals Interve ntions Medication Education Disciplines: Skilled Services 06/15/2021 Resolved on 07/19/2021 1 goal linked to scheduled/document ed intervention 1 goal intervention scheduled/document ed in this visit Physician Specific Parameters Disciplines: Skilled Services 06/15/2021 Resolved on 07/19/2021 1 goal linked to scheduled/document ed intervention 1 goal intervention scheduled/document ed in this visit Risk for Falls Disciplines: Skilled Services 06/15/2021 Resolved on 07/19/2021 1 goal linked to scheduled/document ed intervention 1 goal intervention scheduled/document ed in this visit Diabetic Foot Care Disciplines: Skilled Services 06/15/2021 Resolved on 07/19/2021 1 goal linked to scheduled/document ed intervention 1 goal intervention scheduled/document ed in this visit Discharge Disciplines: Skilled Services 06/15/2021 Resolved on 07/19/2021 1 goal linked to scheduled/document ed intervention 2 goal interventions scheduled/document ed in this visit SN Cardiac Procedure/Surg sukh Disciplines: SN 06/15/2021 Resolved on 07/19/2021 1 goal linked to scheduled/document ed intervention 1 goal intervention scheduled/document ed in this visit SN Diabetes Disciplines: SN 06/15/2021 Resolved on 07/19/2021 1 goal linked to scheduled/document ed intervention 1 goal intervention scheduled/document ed in this visit SN Learning Assessment Disciplines: SN 06/17/2021 Resolved on 07/19/2021 1 goal linked to scheduled/document ed intervention 1 goal intervention scheduled/document ed in this visit Goals Goal Associated Problem Outcome Goal Met? Visit Notes Patient/caregiver will demonstrate ability to obtain, store, identify and administer ordered medications, keep accurate medication list in home, and adhere to medication schedule Medication Education Completed Yes Patient to maintain parameters within physician-specified ranges Physician Specific Parameters Completed Yes Manage Risk for falls Description: Patient/caregiver will verbalize knowledge of individualized fall prevention strategies by 07-23-21. Risk for Falls Completed Yes Manage diabetic foot care Description: Patient/caregiver will demonstrate basic understanding of and compliance with diabetic self-care management as evidenced by verbalizing purpose of daily foot care and assessment by 07-23-21 Diabetic Foot Care Completed Yes Manage discharge planning Description: Patient/caregiver will verbalize understanding of ongoing discharge plan provided related to disease management, arrangements for outpatient and/or community services, obtaining medications, supplies, and DME, as needed. Discharge Completed Yes Patient/caregiver understands all aspects of aftercare post cardiac procedure/surgery Description: Patient/Caregiver to verbalize and demonstrate understanding of aftercare post cardiac procedure/surgery by 07-23-21. SN Cardiac Procedure/Surgery Completed Yes Improved management of diabetes Description: Improve diabetic management as evidenced by patient/caregiver able to teach back 1 diabetic management strategies by 07-23-21. SN Diabetes Completed Yes Demonstrate understanding of education Description: Patient and/or caregiver will verbalize understanding of educational instruction provided. SN Learning Assessment Completed Yes Interventions Intervention Associated Problem/Goal Status Variance Visit Notes Medication Education Description: Evaluate/instruct patient/caregiver on obtaining, storing, identifying and administering ordered medications as well as keeping accurate medication list in the home and adhereing to medication schedule Problem:Medication Education Goal:Patient/caregive r will demonstrate ability to obtain, store, identify and administer ordered medications, keep accurate medication list in home, and adhere to medication schedule Completed Patient instructed on adhering to medication schedule. SPO2 Description: Notify Dr. Valadez if pulse ox is <92% at rest. Problem:Physician Specific Parameters Goal:Patient to maintain parameters within physician-specified ranges Completed Instruct on individual fall risk factors and strategies to prevent falls and injuries caused by falls. Problem:Risk for Falls Goal:Manage Risk for falls Completed SN: Patient instructed on Eliminating Environmental Hazards: Keep pathways clear Monitor lower extremities for skin lesions and educate on proper foot care Problem:Diabetic Foot Care Goal:Manage diabetic foot care Completed patient instructed on diabetic foot care including daily skin inspection and wearing proper footwear/avoiding going barefoot. Instruct on final discharge plan and deliver discharge instructions Problem:Discharge Goal:Manage discharge planning Completed Delivered Discharge plan: Discharge plan discussed with patient for plan for transition to: live independently at home without ongoing services Instruct on ongoing discharge plan Problem:Discharge Goal:Manage discharge planning Completed Ongoing Discharge plan: Discharge plan discussed with patient including frequency and duration for home SN and plan for transition to: live independently at home without ongoing services. Assess/instruct aftercare cardiac procedure Description: Patient recently had CABG. Problem:SN Cardiac Procedure/Surgery Goal:Patient/caregive r understands all aspects of aftercare post cardiac procedure/surgery Completed patient assessed and reinforced on activity guidelines: no lifting items >8-10lbs and walking program and instruct heart health diet. Instruct on diabetes disease process and management of chronic condition Description: Patient has new diagnosis of diabetes. Problem:SN Diabetes Goal:Improved management of diabetes Completed patient assessed and reinforced on how food and insulin affect blood sugar and recogonizing s/s of hypoglycemia and hyperglycemia as found in the diabetes self-care booklets. Instruct and educate on knowledge deficits Problem:SN Learning Assessment Goal:Demonstrate understanding of education Completed patient verbalize and/or demonstrate understanding of nursing education completed today. Education methods include: verbal cues. Further education required to improve knowledge and compliance with cardiac disease management, diabetic care management, fall prevention/home safety strategies, medication management and nutrition. documented in this encounter [facility] for referral (narrative)* Outpatient Procedure (Routine) - New Request Specialty Diagnoses / Procedures Referred By Francisco tristan [facility] Diagnoses Pre-op evaluation Procedures ECG COMPLETE ECG ROUTINE ECG W/LEAST 12 LDS W/I&R Forrest Mejia APRN.CNP [address] [place] [address] [facility] [place] [id number] Referral ID Status Reason Start Date Expiration Date Visits Requested Visits Authorized [id number] New Request Auto-Generat ed Referral 05/20/2024 05/20/2025 1 1 [facility] for referral (narrative)No reason for referral [facility] Phone: Reason for visit Narrative* Diagnostic Procedure Only (Routine) - Closed Specialty Diagnoses / Procedures Referred By Francisco tristan Referred To Contact US IMAGING Diagnoses 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) History of cigarette smoking Procedures US SCREENING FOR AAA (2017) US ABDOMINAL AORTA REAL TIME SCREEN STUDY AAA Dixon Valadez MD [address] [place] [address] [place] [address] Referral ID Status Reason Start Date Expiration Date V isits Requested Visits Authorized [id number] Closed Auto-Generate d Referral 07/12/2023 08/10/2024 1 1 [facility] Summary Purpose Family History Relationship Condition Age at Onset Recorded Date/T bekah Not Specified Diabetes mellitus Unknown Malignant neoplasm Unknown Advance Directives Documents on File Type Date Recorded Patient Service Consultant Expl anation Advance Directive(s) 07/24/2013 9:00 AM Date Activated Date Inactivated Comments 06/15/2021 3:57 PM Latest Code Status on File Code Status Date Activated Date Inactivated Comments Full Code 06/15/2021 3:57 PM Documents on File Type Date Recorded Patient Service Consultant Expl anation Advance Directive(s) Advance Directive(s) 06/04/2021 5:33 PM Advance Directive(s) 03/27/2021 2:41 PM Advance Directive(s) 07/29/2020 7:08 AM AD V DIR ON FILE Advance Directive(s) 07/11/2020 2:43 AM Advance Directive(s) 12/11/2019 11:07 AM Advance Directive(s) 09/15/2016 12:19 PM Advance Directive(s) 09/13/2016 9:50 AM Advance Directive(s) 07/24/2013 9:00 AM Documents on File Type Date Recorded Patient Service Consultant Expl anation Advance Directive(s) Advance Directive(s) 06/04/2021 5:33 PM Advance Directive(s) 03/27/2021 2:41 PM Advance Directive(s) 07/29/2020 7:08 AM AD V DIR ON FILE Advance Directive(s) 07/11/2020 2:43 AM Advance Directive(s) 12/11/2019 11:07 AM Advance Directive(s) 09/15/2016 12:19 PM Advance Directive(s) 09/13/2016 9:50 AM Advance Directive(s) 07/24/2013 9:00 AM Latest Code Status on File Code Status Date Activated Date Inactivated Comments Full Code 06/15/2021 3:57 PM Advance Directive Response Recorded Date/ Time Name of Medical Power of Manager Line Lexi Vaughn May 31, 2021 2:23pm Living Will Yes August 01, 2021 8:27am Power of Manager Line Yes August 01 8:27am Advance Directive Response Recorded Date/ Time Advance Directives on File No August 01, 2021 8:27am Living Will Yes August 01, 2021 8:27am Power of Manager Line Yes August 01 8:27am Documents on File Type Date Recorded Patient Service Consultant Expl anation Advance Directive(s) 07/24/2013 9:00 AM Advance Directive Response Recorded Date/ Time Living Will Yes December 25, 2021 3:59pm Power of Manager Line Yes December 3:59pm Advance Directive Response Recorded Date/ Time Living Will Yes December 25, 2021 4:59pm Power of Manager Line Yes December 4:59pm Latest Code Status on File Code Status Date Activated Date Inactivated Comments Full Code 06/15/2021 3:57 PM Date Activated Date Inactivated Comments 06/15/2021 3:57 PM Date Activated Date Inactivated Comments 06/15/2021 3:57 PM 06/02/2024 8:18 AM Date Activated Date Inactivated Comments 06/15/2021 3:57 PM 06/02/2024 8:18 AM Advance Directive Response Recorded Date/ Time Do you have a Healthcare Power of Manager Line? Yes December 29, 2024 2:26pm Reason for Referral Specialty Diagnoses / Procedures Referred By Contac t Referred To Contact MOLECULAR & FUNCTIONAL IMAGING Diagnoses Prostate cancer (HCC) Procedures NM PET/CT PROSTATE WHOLE BODY IMAGING PET IMAGING CT ATTENUATION SKULL BASE MID-THIGH PSMA [id number] Alyssia Rutledge MD [address] [place] [address] Molecular & Functional Imaging [address] [place] [address] Referral ID Status Reason Start Date Expiration Date Visits Re quested Visits Authorized [id number] Closed 07/11/2021 07/28/2021 2 2 Specialty Diagnoses / Procedures Referred By Contac t Referred To Contact MR IMAGING Diagnoses Prostate cancer (HCC) Procedures MRI PROSTATE WO/W IVCON MRI PELVIS W/O & W/CONTRAST MATERIAL Alyssia Rutledge MD [address] [place] [address] Mr Imaging Referral ID Status Reason Start Date Expiration Date Visits Requested Visits Authorized [id number] Authorized Auto-Generat ed Referral 09/14/2021 10/29/2021 1 1 Referral ID Status Reason Start Date Expiration Date V isits Requested Visits Authorized [id number] Closed Auto-Generate d Referral 09/14/2021 10/29/2021 1 1 Specialty Diagnoses / Procedures Referred By Contac t Referred To Contact Urology Diagnoses Cyst of scrotum Procedures CONSULT TO UROLOGY OFFICE/OUTPATIENT [facility] MDM 60-74 MINUTES Dixon Valadez MD [address] [place], [place] [id number] Referral ID Status Reason Start Date Expiration Date Visits Requested Visits Authorized [id number] Authorized PCP Requested Referral 11/23/2021 11/23/2022 1 1 Specialty Diagnoses / Procedures Referred By Contac t Referred To Contact CT IMAGING Diagnoses Lung nodules Procedures CT CHEST WO IVCON DIAGNOSTIC COMPUTED TOMOGRAPHY THORAX W/O CNTRST Kiana Bonilla, THERAPY ASSISTANT.SUPPORT SERVICE TECH 1 [facility] [address] [place] [address] Ct Imaging Referral ID Status Reason Start Date Expiration Date V isits Requested Visits Authorized [id number] Closed Auto-Generate d Referral 11/30/2021 01/14/2022 1 1 Specialty Diagnoses / Procedures Referred By Contac t Referred To Contact Diagnoses Lung nodule Procedures CONSULT TO PULMONARY MEDICINE Kiana Bonilla, THERAPY ASSISTANT.SUPPORT SERVICE TECH 1 [facility] [address] [place] [address] Referral ID Status Reason Start Date Expiration Date Visits Requested Visits Authorized [id number] Ref Not Required PCP Requested Referral 12/26/2021 03/26/2022 1 1 Specialty Diagnoses / Procedures Referred By Contac t Referred To Contact CT IMAGING Diagnoses Lung nodule Procedures CT CHEST WO IVCON DIAGNOSTIC COMPUTED TOMOGRAPHY THORAX W/O CNTRST Kiana Bonilla, THERAPY ASSISTANT.SUPPORT SERVICE TECH 1 [facility] [address] [place] [address] Ct Imaging Referral ID Status Reason Start Date Expiration Date Visits Requested Visits Authorized [id number] Pending Review Auto-Generat ed Referral 12/26/2021 01/25/2023 1 1 Specialty Diagnoses / Procedures Referred By Contac t Referred To Contact General Surgery Diagnoses Abdominal wall hernia Procedures CONSULT TO GENERAL SURGERY OFFICE/OUTPATIENT [facility] 60 MINUTES Dixon Valadez MD [address] [place] [address] Referral ID Status Reason Start Date Expiration Date Visits Requested Visits Authorized [id number] Authorized PCP Requested Referral 03/24/2024 03/24/2025 1 1 Specialty Diagnoses / Procedures Referred By Contac t Referred To Contact CT IMAGING Diagnoses Abdominal wall hernia Procedures CT ABD/PEL WO IVCON CT ABD & PELVIS W/O CONTRAST Vickie Luna MD [address] [place] [address] [place] [address] Referral ID Status Reason Start Date Expiration Date Visits Requested Visits Authorized [id number] New Request Auto-Generat ed Referral 4 05/02/2025 1 1 Medications Administered Section Inactive Administered Medications - up to 3 most recent administrations Medication Order MAR Action Action Date Dose Rate Site leuprolide (6 month) 45 mg IM syringe kit (LUPRON) 45 mg, INTRAMUSCULAR, ONCE (UP TO 30 DAYS AMB), 1 dose, On Sun07/26/21 at 1530, Hazardous Chemotherapy Drug: Use appropriate PPE. Given 07/28/2021 9:52 AM EDT 45 mg Buttocks, Left Chief Complaint and Reason for Visit Chief Complaint RT MIDDLE FINGER SPR AIN/RX HERE CHEST PAIN CHEST PAIN CHEST PAIN CHEST PAIN CHEST PAIN CHEST PAIN CHEST PAIN CHEST PAIN CHEST PAIN CHEST PAIN S/P [facility] (CABG) REC'S SCANNED CABG SPCABG Reason for Visit Abnormal stress test Angina pectoris Aortic valve disorder Cardiomyopathy Chest pain HLD (hyperlipidemia) Nonspecific ST-T wave electrocardiographic changes Cardiomyopathy History of coronary artery bypass surgery HLD (hyperlipidemia) Chief Complaint RT MIDDLE FINGER SPR AIN/RX HERE CHEST PAIN CHEST PAIN CHEST PAIN CHEST PAIN CHEST PAIN CHEST PAIN CHEST PAIN CHEST PAIN CHEST PAIN CHEST PAIN S/P [facility] (CABG) REC'S SCANNED CABG 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, 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., 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 SPCABG Reason for Visit Abnormal stress test Angina pectoris Aortic valve disorder Cardiomyopathy Chest pain HLD (hyperlipidemia) Nonspecific ST-T wave electrocardiographic changes Cardiomyopathy History of coronary artery bypass surgery HLD (hyperlipidemia) Diabetes Obesity (BMI 30-39.9) Chief Complaint RT MIDDLE FINGER SPR AIN/RX HERE CHEST PAIN CHEST PAIN CHEST PAIN CHEST PAIN CHEST PAIN CHEST PAIN CHEST PAIN CHEST PAIN CHEST PAIN CHEST PAIN S/P [facility] (CABG) REC'S SCANNED CABG 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, 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., 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 TYPE 2 DM SPCABG Reason for Visit Abnormal stress test Angina pectoris Aortic valve disorder Cardiomyopathy Chest pain HLD (hyperlipidemia) Nonspecific ST-T wave electrocardiographic changes Cardiomyopathy History of coronary artery bypass surgery HLD (hyperlipidemia) Diabetes Obesity (BMI 30-39.9) Chief Complaint S/P [facility] (CABG ) REC'S SCANNED CABG 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, 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., 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 TYPE 2 DM SPCABG TYPE 2 DM SPCABG Reason for Visit Cardiomyopathy History of coronary artery bypass surgery HLD (hyperlipidemia) Diabetes Obesity (BMI 30-39.9) Chief Complaint S/P [facility] (CABG ) REC'S SCANNED CABG 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, 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., 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 TYPE 2 DM SPCABG TYPE 2 DM SPCABG 3 M FU SPCABG Reason for Visit Cardiomyopathy History of coronary artery bypass surgery HLD (hyperlipidemia) Diabetes Obesity (BMI 30-39.9) Cardiomyopathy History of coronary artery bypass surgery HLD (hyperlipidemia) Chief Complaint S/P [facility] (CABG ) REC'S SCANNED CABG 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, 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., 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 TYPE 2 DM SPCABG TYPE 2 DM SPCABG 3 M FU SPCABG CARDIOMYOPATHY Reason for Visit Cardiomyopathy History of coronary artery bypass surgery HLD (hyperlipidemia) Diabetes Obesity (BMI 30-39.9) Cardiomyopathy History of coronary artery bypass surgery HLD (hyperlipidemia) Chief Complaint CABG 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 RX HERE Dec 9:30am Chief Complaint Admit Date PREHAB ROTATOR CUFF SURGERY. RX HERE Dec 9:30am SYNCOPE December 29, 2024 4:22pm Reason for Visit Admit Date Syncope December 29, 2024 4:22pm Additional Source Comments (unrecognized sect ion and content) No Status Records FoundNo Status Records FoundNo Status Records FoundNo Status Records FoundNo Status Records Found INFORMATION SOURCE (unrecogn ized section and content) DATE CREATED AUTHOR 02/10/2021 [facility] DATE CREATED AUTHOR AUTHOR'S ORGANIZ ATION 06/06/2024 [facility] DATE CREATED AUTHOR AUTHOR'S ORGANIZ ATION 08/18/2024 [facility] DATE CREATED AUTHOR AUTHOR'S ORGANIZ ATION 11/23/2024 [facility] DATE CREATED AUTHOR AUTHOR'S ORGANIZ ATION 12/28/2024 [facility] Source Comments (unrecognize d section and content) In the event this informatio n is protected by the Federal Confidentiality of Alcohol and Drug Abuse Patient Records regulations: The Federal rules restrict any use of the information to criminally investigate or prosecute any alcohol or drug abuse patient.[facility] the event this information is protected by the Federal Confidentiality of Alcohol and Drug Abuse Patient Records regulations: The Federal rules restrict any use of the information to criminally investigate or prosecute any alcohol or drug abuse patient.[facility] HospitalIn the event this information is protected by the Federal Confidentiality of Alcohol and Drug Abuse Patient Records regulations: The Federal rules restrict any use of the information to criminally investigate or prosecute any alcohol or drug abuse patient.[facility]In the event this information is protected by the Federal Confidentiality of Alcohol and Drug Abuse Patient Records regulations: The Federal rules restrict any use of the information to criminally investigate or prosecute any alcohol or drug abuse patient.[facility] HospitalIn the event this information is protected by the Federal Confidentiality of Alcohol and Drug Abuse Patient Records regulations: The Federal rules restrict any use of the information to criminally investigate or prosecute any alcohol or drug abuse patient.[facility] HospitalIn the event this information is protected by the Federal Confidentiality of Alcohol and Drug Abuse Patient Records regulations: The Federal rules restrict any use of the information to criminally investigate or prosecute any alcohol or drug abuse patient.[facility] HospitalIn the event this information is protected by the Federal Confidentiality of Alcohol and Drug Abuse Patient Records regulations: The Federal rules restrict any use of the information to criminally investigate or prosecute any alcohol or drug abuse patient.[facility] HospitalIn the event this information is protected by the Federal Confidentiality of Alcohol and Drug Abuse Patient Records regulations: The Federal rules restrict any use of the information to criminally investigate or prosecute any alcohol or drug abuse patient.[facility] HospitalIn the event this information is protected by the Federal Confidentiality of Alcohol and Drug Abuse Patient Records regulations: The Federal rules restrict any use of the information to criminally investigate or prosecute any alcohol or drug abuse patient.[facility] HospitalIn the event this information is protected by the Federal Confidentiality of Alcohol and Drug Abuse Patient Records regulations: The Federal rules restrict any use of the information to criminally investigate or prosecute any alcohol or drug abuse patient.[facility] HospitalIn the event this information is protected by the Federal Confidentiality of Alcohol and Drug Abuse Patient Records regulations: The Federal rules restrict any use of the information to criminally investigate or prosecute any alcohol or drug abuse patient.[facility] HospitalIn the event this information is protected by the Federal Confidentiality of Alcohol and Drug Abuse Patient Records regulations: The Federal rules restrict any use of the information to criminally investigate or prosecute any alcohol or drug abuse patient.[facility] HospitalIn the event this information is protected by the Federal Confidentiality of Alcohol and Drug Abuse Patient Records regulations: The Federal rules restrict any use of the information to criminally investigate or prosecute any alcohol or drug abuse patient.[facility] HospitalIn the event this information is protected by the Federal Confidentiality of Alcohol and Drug Abuse Patient Records regulations: The Federal rules restrict any use of the information to criminally investigate or prosecute any alcohol or drug abuse patient.[facility] HospitalIn the event this information is protected by the Federal Confidentiality of Alcohol and Drug Abuse Patient Records regulations: The Federal rules restrict any use of the information to criminally investigate or prosecute any alcohol or drug abuse patient.[facility] HospitalIn the event this information is protected by the Federal Confidentiality of Alcohol and Drug Abuse Patient Records regulations: The Federal rules restrict any use of the information to criminally investigate or prosecute any alcohol or drug abuse patient.[facility] HospitalIn the event this information is protected by the Federal Confidentiality of Alcohol and Drug Abuse Patient Records regulations: The Federal rules restrict any use of the information to criminally investigate or prosecute any alcohol or drug abuse patient.[facility] HospitalIn the event this information is protected by the Federal Confidentiality of Alcohol and Drug Abuse Patient Records regulations: The Federal rules restrict any use of the information to criminally investigate or prosecute any alcohol or drug abuse patient.[facility] HospitalIn the event this information is protected by the Federal Confidentiality of Alcohol and Drug Abuse Patient Records regulations: The Federal rules restrict any use of the information to criminally investigate or prosecute any alcohol or drug abuse patient.[facility] HospitalIn the event this information is protected by the Federal Confidentiality of Alcohol and Drug Abuse Patient Records regulations: The Federal rules restrict any use of the information to criminally investigate or prosecute any alcohol or drug abuse patient.[facility] HospitalIn the event this information is protected by the Federal Confidentiality of Alcohol and Drug Abuse Patient Records regulations: The Federal rules restrict any use of the information to criminally investigate or prosecute any alcohol or drug abuse patient.[facility] HospitalIn the event this information is protected by the Federal Confidentiality of Alcohol and Drug Abuse Patient Records regulations: The Federal rules restrict any use of the information to criminally investigate or prosecute any alcohol or drug abuse patient.[facility] HospitalIn the event this information is protected by the Federal Confidentiality of Alcohol and Drug Abuse Patient Records regulations: The Federal rules restrict any use of the information to criminally investigate or prosecute any alcohol or drug abuse patient.[facility] HospitalIn the event this information is protected by the Federal Confidentiality of Alcohol and Drug Abuse Patient Records regulations: The Federal rules restrict any use of the information to criminally investigate or prosecute any alcohol or drug abuse patient.[facility] HospitalIn the event this information is protected by the Federal Confidentiality of Alcohol and Drug Abuse Patient Records regulations: The Federal rules restrict any use of the information to criminally investigate or prosecute any alcohol or drug abuse patient.[facility] HospitalIn the event this information is protected by the Federal Confidentiality of Alcohol and Drug Abuse Patient Records regulations: The Federal rules restrict any use of the information to criminally investigate or prosecute any alcohol or drug abuse patient.[facility] HospitalIn the event this information is protected by the Federal Confidentiality of Alcohol and Drug Abuse Patient Records regulations: The Federal rules restrict any use of the information to criminally investigate or prosecute any alcohol or drug abuse patient.[facility] HospitalIn the event this information is protected by the Federal Confidentiality of Alcohol and Drug Abuse Patient Records regulations: The Federal rules restrict any use of the information to criminally investigate or prosecute any alcohol or drug abuse patient.[facility] HospitalIn the event this information is protected by the Federal Confidentiality of Alcohol and Drug Abuse Patient Records regulations: The Federal rules restrict any use of the information to criminally investigate or prosecute any alcohol or drug abuse patient.[facility] HospitalIn the event this information is protected by the Federal Confidentiality of Alcohol and Drug Abuse Patient Records regulations: The Federal rules restrict any use of the information to criminally investigate or prosecute any alcohol or drug abuse patient.[facility] HospitalIn the event this information is protected by the Federal Confidentiality of Alcohol and Drug Abuse Patient Records regulations: The Federal rules restrict any use of the information to criminally investigate or prosecute any alcohol or drug abuse patient.[facility] HospitalIn the event this information is protected by the Federal Confidentiality of Alcohol and Drug Abuse Patient Records regulations: The Federal rules restrict any use of the information to criminally investigate or prosecute any alcohol or drug abuse patient.[facility] HospitalIn the event this information is protected by the Federal Confidentiality of Alcohol and Drug Abuse Patient Records regulations: The Federal rules restrict any use of the information to criminally investigate or prosecute any alcohol or drug abuse patient.[facility] HospitalIn the event this information is protected by the Federal Confidentiality of Alcohol and Drug Abuse Patient Records regulations: The Federal rules restrict any use of the information to criminally investigate or prosecute any alcohol or drug abuse patient.[facility] HospitalIn the event this information is protected by the Federal Confidentiality of Alcohol and Drug Abuse Patient Records regulations: The Federal rules restrict any use of the information to criminally investigate or prosecute any alcohol or drug abuse patient.[facility] HospitalIn the event this information is protected by the Federal Confidentiality of Alcohol and Drug Abuse Patient Records regulations: The Federal rules restrict any use of the information to criminally investigate or prosecute any alcohol or drug abuse patient.[facility] HospitalIn the event this information is protected by the Federal Confidentiality of Alcohol and Drug Abuse Patient Records regulations: The Federal rules restrict any use of the information to criminally investigate or prosecute any alcohol or drug abuse patient.[facility]In the event this information is protected by the Federal Confidentiality of Alcohol and Drug Abuse Patient Records regulations: The Federal rules restrict any use of the information to criminally investigate or prosecute any alcohol or drug abuse patient.[facility] HospitalIn the event this information is protected by the Federal Confidentiality of Alcohol and Drug Abuse Patient Records regulations: The Federal rules restrict any use of the information to criminally investigate or prosecute any alcohol or drug abuse patient.[facility] HospitalIn the event this information is protected by the Federal Confidentiality of Alcohol and Drug Abuse Patient Records regulations: The Federal rules restrict any use of the information to criminally investigate or prosecute any alcohol or drug abuse patient.[facility] HospitalIn the event this information is protected by the Federal Confidentiality of Alcohol and Drug Abuse Patient Records regulations: The Federal rules restrict any use of the information to criminally investigate or prosecute any alcohol or drug abuse patient.[facility] HospitalIn the event this information is protected by the Federal Confidentiality of Alcohol and Drug Abuse Patient Records regulations: The Federal rules restrict any use of the information to criminally investigate or prosecute any alcohol or drug abuse patient.[facility] HospitalIn the event this information is protected by the Federal Confidentiality of Alcohol and Drug Abuse Patient Records regulations: The Federal rules restrict any use of the information to criminally investigate or prosecute any alcohol or drug abuse patient.[facility] HospitalIn the event this information is protected by the Federal Confidentiality of Alcohol and Drug Abuse Patient Records regulations: The Federal rules restrict any use of the information to criminally investigate or prosecute any alcohol or drug abuse patient.[facility] HospitalIn the event this information is protected by the Federal Confidentiality of Alcohol and Drug Abuse Patient Records regulations: The Federal rules restrict any use of the information to criminally investigate or prosecute any alcohol or drug abuse patient.[facility] HospitalIn the event this information is protected by the Federal Confidentiality of Alcohol and Drug Abuse Patient Records regulations: The Federal rules restrict any use of the information to criminally investigate or prosecute any alcohol or drug abuse patient.[facility] HospitalIn the event this information is protected by the Federal Confidentiality of Alcohol and Drug Abuse Patient Records regulations: The Federal rules restrict any use of the information to criminally investigate or prosecute any alcohol or drug abuse patient.[facility] HospitalIn the event this information is protected by the Federal Confidentiality of Alcohol and Drug Abuse Patient Records regulations: The Federal rules restrict any use of the information to criminally investigate or prosecute any alcohol or drug abuse patient.[facility] HospitalIn the event this information is protected by the Federal Confidentiality of Alcohol and Drug Abuse Patient Records regulations: The Federal rules restrict any use of the information to criminally investigate or prosecute any alcohol or drug abuse patient.[facility] HospitalIn the event this information is protected by the Federal Confidentiality of Alcohol and Drug Abuse Patient Records regulations: The Federal rules restrict any use of the information to criminally investigate or prosecute any alcohol or drug abuse patient.[facility] HospitalIn the event this information is protected by the Federal Confidentiality of Alcohol and Drug Abuse Patient Records regulations: The Federal rules restrict any use of the information to criminally investigate or prosecute any alcohol or drug abuse patient.[facility] HospitalIn the event this information is protected by the Federal Confidentiality of Alcohol and Drug Abuse Patient Records regulations: The Federal rules restrict any use of the information to criminally investigate or prosecute any alcohol or drug abuse patient.[facility] HospitalIn the event this information is protected by the Federal Confidentiality of Alcohol and Drug Abuse Patient Records regulations: The Federal rules restrict any use of the information to criminally investigate or prosecute any alcohol or drug abuse patient.[facility] HospitalIn the event this information is protected by the Federal Confidentiality of Alcohol and Drug Abuse Patient Records regulations: The Federal rules restrict any use of the information to criminally investigate or prosecute any alcohol or drug abuse patient.[facility] HospitalIn the event this information is protected by the Federal Confidentiality of Alcohol and Drug Abuse Patient Records regulations: The Federal rules restrict any use of the information to criminally investigate or prosecute any alcohol or drug abuse patient.[facility] HospitalIn the event this information is protected by the Federal Confidentiality of Alcohol and Drug Abuse Patient Records regulations: The Federal rules restrict any use of the information to criminally investigate or prosecute any alcohol or drug abuse patient.[facility] HospitalIn the event this information is protected by the Federal Confidentiality of Alcohol and Drug Abuse Patient Records regulations: The Federal rules restrict any use of the information to criminally investigate or prosecute any alcohol or drug abuse patient.[facility] HospitalIn the event this information is protected by the Federal Confidentiality of Alcohol and Drug Abuse Patient Records regulations: The Federal rules restrict any use of the information to criminally investigate or prosecute any alcohol or drug abuse patient.[facility] HospitalIn the event this information is protected by the Federal Confidentiality of Alcohol and Drug Abuse Patient Records regulations: The Federal rules restrict any use of the information to criminally investigate or prosecute any alcohol or drug abuse patient.[facility] HospitalIn the event this information is protected by the Federal Confidentiality of Alcohol and Drug Abuse Patient Records regulations: The Federal rules restrict any use of the information to criminally investigate or prosecute any alcohol or drug abuse patient.[facility] HospitalIn the event this information is protected by the Federal Confidentiality of Alcohol and Drug Abuse Patient Records regulations: The Federal rules restrict any use of the information to criminally investigate or prosecute any alcohol or drug abuse patient.[facility] HospitalIn the event this information is protected by the Federal Confidentiality of Alcohol and Drug Abuse Patient Records regulations: The Federal rules restrict any use of the information to criminally investigate or prosecute any alcohol or drug abuse patient.[facility] HospitalIn the event this information is protected by the Federal Confidentiality of Alcohol and Drug Abuse Patient Records regulations: The Federal rules restrict any use of the information to criminally investigate or prosecute any alcohol or drug abuse patient.[facility] HospitalIn the event this information is protected by the Federal Confidentiality of Alcohol and Drug Abuse Patient Records regulations: The Federal rules restrict any use of the information to criminally investigate or prosecute any alcohol or drug abuse patient.[facility] HospitalIn the event this information is protected by the Federal Confidentiality of Alcohol and Drug Abuse Patient Records regulations: The Federal rules restrict any use of the information to criminally investigate or prosecute any alcohol or drug abuse patient.[facility] HospitalIn the event this information is protected by the Federal Confidentiality of Alcohol and Drug Abuse Patient Records regulations: The Federal rules restrict any use of the information to criminally investigate or prosecute any alcohol or drug abuse patient.[facility] HospitalIn the event this information is protected by the Federal Confidentiality of Alcohol and Drug Abuse Patient Records regulations: The Federal rules restrict any use of the information to criminally investigate or prosecute any alcohol or drug abuse patient.[facility] HospitalIn the event this information is protected by the Federal Confidentiality of Alcohol and Drug Abuse Patient Records regulations: The Federal rules restrict any use of the information to criminally investigate or prosecute any alcohol or drug abuse patient.[facility] HospitalIn the event this information is protected by the Federal Confidentiality of Alcohol and Drug Abuse Patient Records regulations: The Federal rules restrict any use of the information to criminally investigate or prosecute any alcohol or drug abuse patient.[facility] HospitalIn the event this information is protected by the Federal Confidentiality of Alcohol and Drug Abuse Patient Records regulations: The Federal rules restrict any use of the information to criminally investigate or prosecute any alcohol or drug abuse patient.[facility] HospitalIn the event this information is protected by the Federal Confidentiality of Alcohol and Drug Abuse Patient Records regulations: The Federal rules restrict any use of the information to criminally investigate or prosecute any alcohol or drug abuse patient.[facility] HospitalIn the event this information is protected by the Federal Confidentiality of Alcohol and Drug Abuse Patient Records regulations: The Federal rules restrict any use of the information to criminally investigate or prosecute any alcohol or drug abuse patient.[facility] HospitalIn the event this information is protected by the Federal Confidentiality of Alcohol and Drug Abuse Patient Records regulations: The Federal rules restrict any use of the information to criminally investigate or prosecute any alcohol or drug abuse patient.[facility] HospitalIn the event this information is protected by the Federal Confidentiality of Alcohol and Drug Abuse Patient Records regulations: The Federal rules restrict any use of the information to criminally investigate or prosecute any alcohol or drug abuse patient.[facility] HospitalIn the event this information is protected by the Federal Confidentiality of Alcohol and Drug Abuse Patient Records regulations: The Federal rules restrict any use of the information to criminally investigate or prosecute any alcohol or drug abuse patient.[facility] HospitalIn the event this information is protected by the Federal Confidentiality of Alcohol and Drug Abuse Patient Records regulations: The Federal rules restrict any use of the information to criminally investigate or prosecute any alcohol or drug abuse patient.[facility] HospitalIn the event this information is protected by the Federal Confidentiality of Alcohol and Drug Abuse Patient Records regulations: The Federal rules restrict any use of the information to criminally investigate or prosecute any alcohol or drug abuse patient.[facility] HospitalIn the event this information is protected by the Federal Confidentiality of Alcohol and Drug Abuse Patient Records regulations: The Federal rules restrict any use of the information to criminally investigate or prosecute any alcohol or drug abuse patient.[facility] HospitalIn the event this information is protected by the Federal Confidentiality of Alcohol and Drug Abuse Patient Records regulations: The Federal rules restrict any use of the information to criminally investigate or prosecute any alcohol or drug abuse patient.[facility] HospitalIn the event this information is protected by the Federal Confidentiality of Alcohol and Drug Abuse Patient Records regulations: The Federal rules restrict any use of the information to criminally investigate or prosecute any alcohol or drug abuse patient.[facility] HospitalIn the event this information is protected by the Federal Confidentiality of Alcohol and Drug Abuse Patient Records regulations: The Federal rules restrict any use of the information to criminally investigate or prosecute any alcohol or drug abuse patient.[facility] HospitalIn the event this information is protected by the Federal Confidentiality of Alcohol and Drug Abuse Patient Records regulations: The Federal rules restrict any use of the information to criminally investigate or prosecute any alcohol or drug abuse patient.[facility] HospitalIn the event this information is protected by the Federal Confidentiality of Alcohol and Drug Abuse Patient Records regulations: The Federal rules restrict any use of the information to criminally investigate or prosecute any alcohol or drug abuse patient.[facility] HospitalIn the event this information is protected by the Federal Confidentiality of Alcohol and Drug Abuse Patient Records regulations: The Federal rules restrict any use of the information to criminally investigate or prosecute any alcohol or drug abuse patient.[facility] HospitalIn the event this information is protected by the Federal Confidentiality of Alcohol and Drug Abuse Patient Records regulations: The Federal rules restrict any use of the information to criminally investigate or prosecute any alcohol or drug abuse patient.[facility] HospitalIn the event this information is protected by the Federal Confidentiality of Alcohol and Drug Abuse Patient Records regulations: The Federal rules restrict any use of the information to criminally investigate or prosecute any alcohol or drug abuse patient.[facility] HospitalIn the event this information is protected by the Federal Confidentiality of Alcohol and Drug Abuse Patient Records regulations: The Federal rules restrict any use of the information to criminally investigate or prosecute any alcohol or drug abuse patient.[facility] HospitalIn the event this information is protected by the Federal Confidentiality of Alcohol and Drug Abuse Patient Records regulations: The Federal rules restrict any use of the information to criminally investigate or prosecute any alcohol or drug abuse patient.[facility] HospitalIn the event this information is protected by the Federal Confidentiality of Alcohol and Drug Abuse Patient Records regulations: The Federal rules restrict any use of the information to criminally investigate or prosecute any alcohol or drug abuse patient.[facility] HospitalIn the event this information is protected by the Federal Confidentiality of Alcohol and Drug Abuse Patient Records regulations: The Federal rules restrict any use of the information to criminally investigate or prosecute any alcohol or drug abuse patient.[facility] HospitalIn the event this information is protected by the Federal Confidentiality of Alcohol and Drug Abuse Patient Records regulations: The Federal rules restrict any use of the information to criminally investigate or prosecute any alcohol or drug abuse patient.[facility] HospitalIn the event this information is protected by the Federal Confidentiality of Alcohol and Drug Abuse Patient Records regulations: The Federal rules restrict any use of the information to criminally investigate or prosecute any alcohol or drug abuse patient.[facility] HospitalIn the event this information is protected by the Federal Confidentiality of Alcohol and Drug Abuse Patient Records regulations: The Federal rules restrict any use of the information to criminally investigate or prosecute any alcohol or drug abuse patient.[facility] HospitalIn the event this information is protected by the Federal Confidentiality of Alcohol and Drug Abuse Patient Records regulations: The Federal rules restrict any use of the information to criminally investigate or prosecute any alcohol or drug abuse patient.[facility] HospitalIn the event this information is protected by the Federal Confidentiality of Alcohol and Drug Abuse Patient Records regulations: The Federal rules restrict any use of the information to criminally investigate or prosecute any alcohol or drug abuse patient.[facility] HospitalIn the event this information is protected by the Federal Confidentiality of Alcohol and Drug Abuse Patient Records regulations: The Federal rules restrict any use of the information to criminally investigate or prosecute any alcohol or drug abuse patient.[facility] HospitalIn the event this information is protected by the Federal Confidentiality of Alcohol and Drug Abuse Patient Records regulations: The Federal rules restrict any use of the information to criminally investigate or prosecute any alcohol or drug abuse patient.[facility] HospitalIn the event this information is protected by the Federal Confidentiality of Alcohol and Drug Abuse Patient Records regulations: The Federal rules restrict any use of the information to criminally investigate or prosecute any alcohol or drug abuse patient.[facility] HospitalIn the event this information is protected by the Federal Confidentiality of Alcohol and Drug Abuse Patient Records regulations: The Federal rules restrict any use of the information to criminally investigate or prosecute any alcohol or drug abuse patient.[facility] HospitalIn the event this information is protected by the Federal Confidentiality of Alcohol and Drug Abuse Patient Records regulations: The Federal rules restrict any use of the information to criminally investigate or prosecute any alcohol or drug abuse patient.[facility] HospitalIn the event this information is protected by the Federal Confidentiality of Alcohol and Drug Abuse Patient Records regulations: The Federal rules restrict any use of the information to criminally investigate or prosecute any alcohol or drug abuse patient.[facility] HospitalIn the event this information is protected by the Federal Confidentiality of Alcohol and Drug Abuse Patient Records regulations: The Federal rules restrict any use of the information to criminally investigate or prosecute any alcohol or drug abuse patient.[facility] HospitalIn the event this information is protected by the Federal Confidentiality of Alcohol and Drug Abuse Patient Records regulations: The Federal rules restrict any use of the information to criminally investigate or prosecute any alcohol or drug abuse patient.[facility] HospitalIn the event this information is protected by the Federal Confidentiality of Alcohol and Drug Abuse Patient Records regulations: The Federal rules restrict any use of the information to criminally investigate or prosecute any alcohol or drug abuse patient.[facility] HospitalIn the event this information is protected by the Federal Confidentiality of Alcohol and Drug Abuse Patient Records regulations: The Federal rules restrict any use of the information to criminally investigate or prosecute any alcohol or drug abuse patient.[facility] HospitalIn the event this information is protected by the Federal Confidentiality of Alcohol and Drug Abuse Patient Records regulations: The Federal rules restrict any use of the information to criminally investigate or prosecute any alcohol or drug abuse patient.[facility] HospitalIn the event this information is protected by the Federal Confidentiality of Alcohol and Drug Abuse Patient Records regulations: The Federal rules restrict any use of the information to criminally investigate or prosecute any alcohol or drug abuse patient.[facility] HospitalIn the event this information is protected by the Federal Confidentiality of Alcohol and Drug Abuse Patient Records regulations: The Federal rules restrict any use of the information to criminally investigate or prosecute any alcohol or drug abuse patient.[facility]In the event this information is protected by the Federal Confidentiality of Alcohol and Drug Abuse Patient Records regulations: The Federal rules restrict any use of the information to criminally investigate or prosecute any alcohol or drug abuse patient.[facility]In the event this information is protected by the Federal Confidentiality of Alcohol and Drug Abuse Patient Records regulations: The Federal rules restrict any use of the information to criminally investigate or prosecute any alcohol or drug abuse patient.[facility] HospitalIn the event this information is protected by the Federal Confidentiality of Alcohol and Drug Abuse Patient Records regulations: The Federal rules restrict any use of the information to criminally investigate or prosecute any alcohol or drug abuse patient.[facility]In the event this information is protected by the Federal Confidentiality of Alcohol and Drug Abuse Patient Records regulations: The Federal rules restrict any use of the information to criminally investigate or prosecute any alcohol or drug abuse patient.[facility]In the event this information is protected by the Federal Confidentiality of Alcohol and Drug Abuse Patient Records regulations: The Federal rules restrict any use of the information to criminally investigate or prosecute any alcohol or drug abuse patient.[facility]In the event this information is protected by the Federal Confidentiality of Alcohol and Drug Abuse Patient Records regulations: The Federal rules restrict any use of the information to criminally investigate or prosecute any alcohol or drug abuse patient.[facility]In the event this information is protected by the Federal Confidentiality of Alcohol and Drug Abuse Patient Records regulations: The Federal rules restrict any use of the information to criminally investigate or prosecute any alcohol or drug abuse patient.[facility]In the event this information is protected by the Federal Confidentiality of Alcohol and Drug Abuse Patient Records regulations: The Federal rules restrict any use of the information to criminally investigate or prosecute any alcohol or drug abuse patient.[facility]In the event this information is protected by the Federal Confidentiality of Alcohol and Drug Abuse Patient Records regulations: The Federal rules restrict any use of the information to criminally investigate or prosecute any alcohol or drug abuse patient.[facility]In the event this information is protected by the Federal Confidentiality of Alcohol and Drug Abuse Patient Records regulations: The Federal rules restrict any use of the information to criminally investigate or prosecute any alcohol or drug abuse patient.[facility]In the event this information is protected by the Federal Confidentiality of Alcohol and Drug Abuse Patient Records regulations: The Federal rules restrict any use of the information to criminally investigate or prosecute any alcohol or drug abuse patient.[facility]In the event this information is protected by the Federal Confidentiality of Alcohol and Drug Abuse Patient Records regulations: The Federal rules restrict any use of the information to criminally investigate or prosecute any alcohol or drug abuse patient.[facility]In the event this information is protected by the Federal Confidentiality of Alcohol and Drug Abuse Patient Records regulations: The Federal rules restrict any use of the information to criminally investigate or prosecute any alcohol or drug abuse patient.[facility] HospitalIn the event this information is protected by the Federal Confidentiality of Alcohol and Drug Abuse Patient Records regulations: The Federal rules restrict any use of the information to criminally investigate or prosecute any alcohol or drug abuse patient.[facility] HospitalIn the event this information is protected by the Federal Confidentiality of Alcohol and Drug Abuse Patient Records regulations: The Federal rules restrict any use of the information to criminally investigate or prosecute any alcohol or drug abuse patient.[facility] [facility] Hospital[facility] the event this information is protected by the Federal Confidentiality of Alcohol and Drug Abuse Patient Records regulations: The Federal rules restrict any use of the information to criminally investigate or prosecute any alcohol or drug abuse patient.[facility] HospitalIn the event this information is protected by the Federal Confidentiality of Alcohol and Drug Abuse Patient Records regulations: The Federal rules restrict any use of the information to criminally investigate or prosecute any alcohol or drug abuse patient.[facility] HospitalIn the event this information is protected by the Federal Confidentiality of Alcohol and Drug Abuse Patient Records regulations: The Federal rules restrict any use of the information to criminally investigate or prosecute any alcohol or drug abuse patient.[facility] HospitalIn the event this information is protected by the Federal Confidentiality of Alcohol and Drug Abuse Patient Records regulations: The Federal rules restrict any use of the information to criminally investigate or prosecute any alcohol or drug abuse patient.[facility] HospitalIn the event this information is protected by the Federal Confidentiality of Alcohol and Drug Abuse Patient Records regulations: The Federal rules restrict any use of the information to criminally investigate or prosecute any alcohol or drug abuse patient.[facility] HospitalIn the event this information is protected by the Federal Confidentiality of Alcohol and Drug Abuse Patient Records regulations: The Federal rules restrict any use of the information to criminally investigate or prosecute any alcohol or drug abuse patient.[facility] HospitalIn the event this information is protected by the Federal Confidentiality of Alcohol and Drug Abuse Patient Records regulations: The Federal rules restrict any use of the information to criminally investigate or prosecute any alcohol or drug abuse patient.[facility] HospitalIn the event this information is protected by the Federal Confidentiality of Alcohol and Drug Abuse Patient Records regulations: The Federal rules restrict any use of the information to criminally investigate or prosecute any alcohol or drug abuse patient.[facility] HospitalIn the event this information is protected by the Federal Confidentiality of Alcohol and Drug Abuse Patient Records regulations: The Federal rules restrict any use of the information to criminally investigate or prosecute any alcohol or drug abuse patient.[facility] HospitalIn the event this information is protected by the Federal Confidentiality of Alcohol and Drug Abuse Patient Records regulations: The Federal rules restrict any use of the information to criminally investigate or prosecute any alcohol or drug abuse patient.[facility] HospitalIn the event this information is protected by the Federal Confidentiality of Alcohol and Drug Abuse Patient Records regulations: The Federal rules restrict any use of the information to criminally investigate or prosecute any alcohol or drug abuse patient.[facility] HospitalIn the event this information is protected by the Federal Confidentiality of Alcohol and Drug Abuse Patient Records regulations: The Federal rules restrict any use of the information to criminally investigate or prosecute any alcohol or drug abuse patient.[facility] HospitalIn the event this information is protected by the Federal Confidentiality of Alcohol and Drug Abuse Patient Records regulations: The Federal rules restrict any use of the information to criminally investigate or prosecute any alcohol or drug abuse patient.[facility] HospitalIn the event this information is protected by the Federal Confidentiality of Alcohol and Drug Abuse Patient Records regulations: The Federal rules restrict any use of the information to criminally investigate or prosecute any alcohol or drug abuse patient.[facility] HospitalIn the event this information is protected by the Federal Confidentiality of Alcohol and Drug Abuse Patient Records regulations: The Federal rules restrict any use of the information to criminally investigate or prosecute any alcohol or drug abuse patient.[facility] HospitalIn the event this information is protected by the Federal Confidentiality of Alcohol and Drug Abuse Patient Records regulations: The Federal rules restrict any use of the information to criminally investigate or prosecute any alcohol or drug abuse patient.[facility] HospitalIn the event this information is protected by the Federal Confidentiality of Alcohol and Drug Abuse Patient Records regulations: The Federal rules restrict any use of the information to criminally investigate or prosecute any alcohol or drug abuse patient.[facility] HospitalIn the event this information is protected by the Federal Confidentiality of Alcohol and Drug Abuse Patient Records regulations: The Federal rules restrict any use of the information to criminally investigate or prosecute any alcohol or drug abuse patient.[facility] HospitalIn the event this information is protected by the Federal Confidentiality of Alcohol and Drug Abuse Patient Records regulations: The Federal rules restrict any use of the information to criminally investigate or prosecute any alcohol or drug abuse patient.[facility] HospitalIn the event this information is protected by the Federal Confidentiality of Alcohol and Drug Abuse Patient Records regulations: The Federal rules restrict any use of the information to criminally investigate or prosecute any alcohol or drug abuse patient.[facility] HospitalIn the event this information is protected by the Federal Confidentiality of Alcohol and Drug Abuse Patient Records regulations: The Federal rules restrict any use of the information to criminally investigate or prosecute any alcohol or drug abuse patient.[facility] HospitalIn the event this information is protected by the Federal Confidentiality of Alcohol and Drug Abuse Patient Records regulations: The Federal rules restrict any use of the information to criminally investigate or prosecute any alcohol or drug abuse patient.[facility] HospitalIn the event this information is protected by the Federal Confidentiality of Alcohol and Drug Abuse Patient Records regulations: The Federal rules restrict any use of the information to criminally investigate or prosecute any alcohol or drug abuse patient.[facility] HospitalIn the event this information is protected by the Federal Confidentiality of Alcohol and Drug Abuse Patient Records regulations: The Federal rules restrict any use of the information to criminally investigate or prosecute any alcohol or drug abuse patient.[facility] HospitalIn the event this information is protected by the Federal Confidentiality of Alcohol and Drug Abuse Patient Records regulations: The Federal rules restrict any use of the information to criminally investigate or prosecute any alcohol or drug abuse patient.[facility] HospitalIn the event this information is protected by the Federal Confidentiality of Alcohol and Drug Abuse Patient Records regulations: The Federal rules restrict any use of the information to criminally investigate or prosecute any alcohol or drug abuse patient.[facility] HospitalIn the event this information is protected by the Federal Confidentiality of Alcohol and Drug Abuse Patient Records regulations: The Federal rules restrict any use of the information to criminally investigate or prosecute any alcohol or drug abuse patient.[facility] HospitalIn the event this information is protected by the Federal Confidentiality of Alcohol and Drug Abuse Patient Records regulations: The Federal rules restrict any use of the information to criminally investigate or prosecute any alcohol or drug abuse patient.[facility] HospitalIn the event this information is protected by the Federal Confidentiality of Alcohol and Drug Abuse Patient Records regulations: The Federal rules restrict any use of the information to criminally investigate or prosecute any alcohol or drug abuse patient.[facility] Reason for Visit (unrecogniz ed section and content) Reason Comments Prostate Cancer Specialty Diagnoses / Procedures Referred By Contac t Referred To Contact Urology / UROLOGY Diagnoses Malignant neoplasm of prostate C61 - Malignant neoplasm of prostate Procedures REFERRAL TO [facility] FINANCIAL COUNSELOR LEUPROLIDE ACETATE SUSPNSION CHEMOTHER HORMON ANTINEOPL SUB-Q/IM J9217 LUPRON 45 MG ONCE EVERY 6 MONTHS Dixon Valadez MD [address] [place] [address] Rajat العراقي Jr., MD [address] [place] [address] Referral ID Status Reason Start Date Expiration Date Visits Requested Visits Authorized [id number] Authorized Financial Clearance Required - OON Payor Patient Cleared - Admin/Chairma n/Director advise to proceed 07/25/2021 10/23/2021 99 99 Reason Onset Date Comments Transition Of Care 07/12/2021 [facility] discharge 06-13-21- follow up Reason Comments Post Op 3-4 week s/p CABG Reason Onset Date Comments Returning Patient's Call 07/15/2021 Specialty Diagnoses / Procedures Referred By [facility] Referred To Contact MOLECULAR & FUNCTIONAL IMAGING Diagnoses Prostate cancer (HCC) Procedures NM PET/CT PROSTATE WHOLE BODY IMAGING PET IMAGING CT ATTENUATION SKULL BASE MID-THIGH PSMA [id number] Alyssia Rutledge MD [address] [place] [address] Molecular & Functional Imaging [address] [place] [address] Referral ID Status Reason Start Date Expiration Date Visits Re quested Visits Authorized [id number] Closed 07/11/2021 07/28/2021 2 2 Reason Comments Radiology [place] Specialty Diagnoses / Procedures Referred By Contac t Referred To Contact MOLECULAR & FUNCTIONAL IMAGING Diagnoses Prostate cancer (HCC) Procedures NM PET/CT PROSTATE WHOLE BODY IMAGING PET IMAGING CT ATTENUATION SKULL BASE MID-THIGH PSMA [id number] Alyssia Rutledge MD [address] [place] [address] Molecular & Functional Imaging [address] [place] [address] Reason Comments Home Care dc from home health Reason Comments Cardiac Rehab referral [facility] Reason Onset Date Comments Refill Request 07/25/2021 Reason Onset Date Comments Transition Of Care 07/25/2021 [facility] discharge 06-13-21- final follow up Reason Comments Treatment Planning Reason Comments Injections Reason Onset Date Comments Refill Request 08/08/2021 Reason Comments Medication Problem Specialty Diagnoses / Procedures Referred By [facility] Referred To Contact Radiation Oncology / RADIATION ONCOLOGY Diagnoses Malignant neoplasm of prostate Prostate, full bladder, empty rectum, Supine Location: A-CT/Sim Activity: SIM SCHED NOTE Procedures SIMULATION IMRT 33 fractions Alyssia Rutledge MD [address] [place] [address] Alyssia Rutledge MD [address] [place] [address] Referral ID Status Reason Start Date Expiration Date V isits Requested Visits Authorized [id number] Authorized 07/15/2021 11/20/2021 35 35 Reason Comments Medication Follow-up Reason Comments Radiology MRI Specialty Diagnoses / Procedures Referred By Contac t Referred To Contact MR IMAGING Diagnoses Prostate cancer (HCC) Procedures MRI PROSTATE WO/W IVCON MRI PELVIS W/O & W/CONTRAST MATERIAL Alyssia Rutledge MD [address] [place] [address] Mr Imaging Referral ID Status Reason Start Date Expiration Date V isits Requested Visits Authorized [id number] Closed Auto-Generate d Referral 09/14/2021 10/29/2021 1 1 Reason Comments Recheck Reason Comments Radiotherapy On-treatment Visit Reason Comments external report Cardiac H&P Reason Comments sore on scrotum X 1 week Reason Onset Date Comments Refill Request 11/22/2021 Reason Comments spot on scrotum Reason Comments Scrotal Problem Cyst Reason Onset Date Comments Refill Request 11/29/2021 Reason Onset Date Comments Refill Request 12/11/2021 Specialty Diagnoses / Procedures Referred By Contac t Referred To Contact CT IMAGING Diagnoses Lung nodules Procedures CT CHEST WO IVCON DIAGNOSTIC COMPUTED TOMOGRAPHY THORAX W/O CNTRST Kiana Bonilla, THERAPY ASSISTANT.SUPPORT SERVICE TECH 1 [facility] [address] [place] [address] Ct Imaging Referral ID Status Reason Start Date Expiration Date V isits Requested Visits Authorized [id number] Closed Auto-Generate d Referral 11/30/2021 01/14/2022 1 1 Reason Comments Results Reason Comments ED Follow-up [facility] Kidney function Reason Onset Date Comments Refill Request 01/16/2022 Reason Onset Date Comments Refill Request 02/15/2022 Reason Onset Date Comments Refill Request 02/24/2022 Reason Onset Date Comments Refill Request 03/21/2022 Reason Onset Date Comments Refill Request 03/22/2022 Reason Comments Forms Reason Comments Forms [facility] detailed written order. Freestyle lite test strip. Reason Onset Date Comments Refill Request 04/27/2022 Reason Comments Med Change Request Reason Comments Follow Up Reason Onset Date Comments Refill Request 05/04/2022 Reason Comments Insurance Authorization Ozempic Reason Onset Date Comments Refill Request 02/09/2023 Reason Onset Date Comments Refill Request 04/03/2023 Reason Comments 6 Month Exam Reason Comments Medication Question Reason Comments Orders Reason Onset Date Comments Refill Request 07/11/2023 Reason Comments Medication Problem Lancet Pen broke Reason Onset Date Comments Refill Request 10/25/2023 Reason Comments F/U 6 Month Reason Onset Date Comments Refill Request 01/24/2024 Reason Onset Date Comments Refill Request 03/07/2024 Reason Comments Abdominal Pain Protrusion just abov e the belly button Reason Comments Consult Hernia Specialty Diagnoses / Procedures Referred By Francisco t Referred To Contact General Surgery Diagnoses Abdominal wall hernia Procedures CONSULT TO GENERAL SURGERY OFFICE/OUTPATIENT [facility] 60 MINUTES Dixon Valadez MD [address] [place] [address] Referral ID Status Reason Start Date Expiration Date V isits Requested Visits Authorized [id number] Closed PCP Requested Referral 03/24/2024 03/24/2025 [address] Specialty Diagnoses / Procedures Referred By Lizaac t Referred To Contact CT IMAGING Diagnoses Abdominal wall hernia Procedures CT ABD/PEL WO IVCON CT ABD & PELVIS W/O CONTRAST Vickie Luna MD [address] [facility] [place] [address] [place] [address] Referral ID Status Reason Start Date Expiration Date V isits Requested Visits Authorized [id number] Closed Auto-Generate d Referral 04/02/2024 05/02/2025 1 1 Reason Onset Date Comments Refill Request 05/15/2024 Reason Comments Pre-Op Visit Reason Comments Insurance Authorization Reason Comments Refill Request Insurance Authorization Reason Comments Post Op Reason Comments Results Reason Comments Consult Last colonoscopy 202 0 Specialty Diagnoses / Procedures Referred By Francisco t Referred To Contact General Surgery Diagnoses Screening for colon cancer Procedures CONSULT TO GENERAL SURGERY OFFICE/OUTPATIENT [facility] 60 MINUTES Dixon Valadez MD [address] [place] [address] Phone: tel: fax: Referral ID Status Reason Start Date Expiration Date V isits Requested Visits Authorized [id number] Closed PCP Requested Referral 10/01/2024 10/01/2025 1 1 Reason Onset Date Comments Refill Request 12/08/2024 Care Teams (unrecognized sec tion and content) Ambulance Assistant Relationship Specialty Start Date End Date Dixon Valadez MD [address] [place], [place] [id number] PCP - General 06/30/08 Niraj Winkler PA-C [address] [place], [place] [phone] Referring Cardiovascular Surgery 06/13/21 Dixon Valadez MD [address] [place], [place] [id number] Home Care Physician Family Practice 06/13/21 Bj Tirado RN [address] [place] [address] Signal Integrity Engineer Post Acute Care 06/13/21 Ritu Frazier, [facility] [address] [place], [place] [id number] Transitional Care Pharmacist Pharmacy 06/14/21 07/13/21 Vidhi Eastman, epidemiology internship Digital Artist 06/14/21 07/15/21 Ambulance Assistant Relationship Specialty Start Date End Date Dixon Valadez MD [address] [place], [place] [id number] PCP - General 06/30/08 Niraj Winkler PASharanC [address] [place], [place] [phone] Referring Cardiovascular Surgery 06/13/21 Dixon Valadez MD [address] [place], [place] [id number] Home Care Physician Family Practice 06/13/21 Bj Tirado RN [address] [place] [address] Signal Integrity Engineer Post Acute Care 06/13/21 Freddie Ritu, [facility] [address] [place] [address] Transitional Care Pharmacist Pharmacy 06/14/21 07/13/21 Vidhi Eastman, epidemiology internship Digital Artist 06/14/21 07/15/21 Ambulance Assistant Relationship Specialty Start Date End Date Dixon Valadez MD [address] [place], [place] [id number] PCP - General 06/30/08 Niraj Winkler PA-C [address] [place], [place] [phone] Referring Cardiovascular Surgery 06/13/21 Dixon Valadez MD [address] [place], [place] [id number] Home Care Physician Family Practice 06/13/21 Bj Tirado, [facility] [address] [place] [address] Signal Integrity Engineer Post Acute Care 06/13/21 Vidhi Eastman, epidemiology internship Digital Artist 06/14/21 07/15/21 Kash Due[address]as [address] [place] [address] Cardiology 07/14/21 Rajat العراقي Jr., MD [address] [place], [place] [phone] Urology 07/14/21 Ambulance Assistant Relationship Specialty Start Date End Date Dixon Valadez MD [address] [place], [place] [id number] PCP - General 06/30/08 Niraj Winkler PA-C [address] [place], [place] [phone] Referring Cardiovascular Surgery 06/13/21 Dixon Valadez MD [address] [place] [address] Home Care Physician Family Practice 06/13/21 Bj Tirado RN [address] [place] [address] Signal Integrity Engineer Post Acute Care 06/13/21 Vidhi Eastman, epidemiology internship Digital Artist 06/14/21 07/15/21 [address] [phone] Cardiology 07/14/21 [place] [address] [place] [id number] Urology 07/14/21 Ambulance Assistant Relationship Specialty Start Date End Date Dixon Valadez MD [address] [place] [address] PCP - General 06/30/08 Niraj Winkler PA-C [address] [place] [address] Referring Cardiovascular Surgery 06/13/21 Dixon Valadez MD [address] [place] [address] Home Care Physician Family Practice 06/13/21 Bj Tirado RN [address] [place] [address] Signal Integrity Engineer Post Acute Care 06/13/21 Vidhi Eastman, epidemiology internship Digital Artist 06/14/21 07/15/21 [address] [phone] Cardiology 07/14/21 Rajat العراقي Jr., MD [address] [place] [address] Urology 07/14/21 Ambulance Assistant Relationship Specialty Start Date End Date Dixon Valadez MD [address] [place] [address] PCP - General 06/30/08 Niraj Winkler PA-C [address] [place] [address] Referring Cardiovascular Surgery 06/13/21 Dixon Valadez MD [address] [place] [address] Home Care Physician Family Practice 06/13/21 Bj Tirado RN [address] [place] [address] Signal Integrity Engineer Post Acute Care 06/13/21 Kash Dueñas [address] [place], [place] [address] [place] [address] Cardiology 07/14/21 Rajat العراقي Jr., MD [address] [place] [address] Urology 07/14/21 Ambulance Assistant Relationship Specialty Start Date End Date Dixon Valadez MD [address] [place] [address] PCP - General 06/30/08 Niraj Winkler PA-C [address] [place] [address] Referring Cardiovascular Surgery 06/13/21 Dixon Valadez MD [address] [place] [address] Home Care Physician Family Practice 06/13/21 Bj Tirado RN [address] [place] [address] Signal Integrity Engineer Post Acute Care 06/13/21 Kash Dueñas [address] [place] [address] Cardiology 07/14/21 Rajat العراقي Jr., MD [address] [place] [address] Urology 07/14/21 Ambulance Assistant Relationship Specialty Start Date End Date Dixon Valadez MD [address] [place] [address] PCP - General 06/30/08 Niraj Winkler PA-C [address] [place] [address] Referring Cardiovascular Surgery 06/13/21 Dixon Valadez MD [address] [place] [address] Home Care Physician Family Practice 06/13/21 Bj Tirado RN [address] [place] [address] Signal Integrity Engineer Post Acute Care 06/13/21 Kash Dueñas [address] [place] [address] Cardiology 07/14/21 Rajat العراقي Jr., MD [address] [place] [address] Urology 07/14/21 Ambulance Assistant Relationship Specialty Start Date End Date Dixon Valadez MD [address] [place] [address] PCP - General 06/30/08 Niraj Winkler PA-C [address] [place] [address] Referring Cardiovascular Surgery 06/13/21 Dixon Valadez MD [address] [place] [address] Home Care Physician Family Practice 06/13/21 Kash Dueñas [address] [facility] [place] [address] Cardiology 07/14/21 Rajat العراقي Jr., MD [address] [place], [place] [address] Urology 07/14/21 Ambulance Assistant Relationship Specialty Start Date End Date Dixon Valadez MD [address] [place] [address] PCP - General 06/30/08 Niraj Winkler PA-C [address] [place] [address] Referring Cardiovascular Surgery 06/13/21 Dixon Valadez MD [address] [place] [address] Home Care Physician Family Practice 06/13/21 Kash Dueñas [address] [place] [address] Cardiology 07/14/21 Rajat العراقي Jr., MD [address] [place], [place] [address] Urology 07/14/21 Ambulance Assistant Relationship Specialty Start Date End Date Dixon Valadez MD [address] [place] [address] PCP - General 06/30/08 Niraj Winkler PA-C [address] [place] [address] Referring Cardiovascular Surgery 06/13/21 Dixon Valadez MD [address] [place] [address] Home Care Physician Family Practice 06/13/21 Bj Tirado, HALEY [address] [place], [place] [phone] Signal Integrity Engineer Post Acute Care 06/13/21 07/23/21 Kash Dueñas [address] [place] [address] Cardiology 07/14/21 [place] [address] [place] [address] Urology 07/14/21 Ambulance Assistant Relationship Specialty Start Date End Date Dixon Valadez MD [address] [place] [address] PCP - General 06/30/08 Niraj Winkler PA-C [address] [place] [address] Referring Cardiovascular Surgery 06/13/21 Dixon Valadez MD [address] [place] [address] Home Care Physician Family Practice 06/13/21 Kash Dueñas [address] [place] [address] Cardiology 07/14/21 [place] [address] [place] [address] Urology 07/14/21 Ambulance Assistant Relationship Specialty Start Date End Date Dixon Valadez MD [address] [place] [address] PCP - General 06/30/08 Niraj Winkler PA-C [address] [place] [address] Referring Cardiovascular Surgery 06/13/21 Dixon Valadez MD [address] [place] [address] Home Care Physician Family Practice 06/13/21 Kash Dueñas [address] [place] [address] Cardiology 07/14/21 Rajat العراقي Jr., MD [address] [place] [address] Urology 07/14/21 Ambulance Assistant Relationship Specialty Start Date End Date Dixon Valadez MD [address] [place] [address] PCP - General 06/30/08 Niraj Winkler PA-C [address] [place] [address] Referring Cardiovascular Surgery 06/13/21 Dixon Valadez MD [address] [place] [address] Home Care Physician Family Practice 06/13/21 Kash Dueñas [address] [place] [address] Cardiology 07/14/21 [place] [address] [place] [address] Urology 07/14/21 Ambulance Assistant Relationship Specialty Start Date End Date Dixon Valadez MD [address] [place] [address] PCP - General 06/30/08 Niraj Winkler PA-C [address] [place] [address] Referring Cardiovascular Surgery 06/13/21 Dixon Valadez MD [address] [place] [address] Home Care Physician Family Practice 06/13/21 Kash Dueñas [address] [place] [address] Cardiology 07/14/21 Rajat العراقي Jr., MD [address] [place] [address] Urology 07/14/21 Ambulance Assistant Relationship Specialty Start Date End Date Dixon Valadez MD [address] [place] [address] PCP - General 06/30/08 Niraj Winkler PA-C [address] [place] [address] Referring Cardiovascular Surgery 06/13/21 Dixon Valadez MD [address] [place] [address] Home Care Physician Family Practice 06/13/21 Kash Dueñas [address] [place] [address] Cardiology 07/14/21 Rajat العراقي Jr., MD [address] [place] [address] Urology 07/14/21 Ambulance Assistant Relationship Specialty Start Date End Date Dixon Valadez MD [address] [place] [address] PCP - General 06/30/08 Niraj Winkler PA-C [address] [place] [address] Referring Cardiovascular Surgery 06/13/21 Dixon Valadez MD [address] [place] [address] Home Care Physician Family Practice 06/13/21 Kash Dueñas [address] [place] [address] Cardiology 07/14/21 Rajat العراقي Jr., MD [address] [place] [address] Urology 07/14/21 Ambulance Assistant Relationship Specialty Start Date End Date Dixon Valadez MD [address] [place] [address] PCP - General 06/30/08 Niraj Winkler PA-C 1 [place] [address] Referring Cardiovascular Surgery 06/13/21 Dixon Valadez MD [address] [place] [address] Home Care Physician Family Practice 06/13/21 Kash Dueñas [address] [place] [address] Cardiology 07/14/21 Raj[place] الع[place] [address] [place] [address] Urology 07/14/21 Akshat Shelton MD [address] [place] [address] Endocrinology 09/01/21 Ambulance Assistant Relationship Specialty Start Date End Date Dixon Valadez MD [address] [place] [address] PCP - General 06/30/08 Niraj Winkler PA-C 1 [place] [address] Referring Cardiovascular Surgery 06/13/21 Dixon Valadez MD [address] [place] [address] Home Care Physician Family Practice 06/13/21 Kash Dueñas [address] [facility] [place] [address] Cardiology 07/14/21 Rajat العراقي Jr., MD [address] [place], [place] [address] Urology 07/14/21 Akshat Shelton MD [address] [place] [address] Endocrinology 09/01/21 Ambulance Assistant Relationship Specialty Start Date End Date Dixon Valadez MD [address] [place] [address] PCP - General 06/30/08 Niraj Winkler PA-C 1 [place] [address] Referring Cardiovascular Surgery 06/13/21 Dixon Valadez MD [address] [place] [address] Home Care Physician Family Practice 06/13/21 Kash Dueñas [address] [place] [address] Cardiology 07/14/21 Rajat العراقي Jr., MD [address] [place] [address] Urology 07/14/21 Akshat Shelton MD [address] [place] [address] Endocrinology 09/01/21 Ambulance Assistant Relationship Specialty Start Date End Date Dixon Valadez MD [address] [place] [address] PCP - General 06/30/08 Niraj Winkler PA-C 1 [place] [address] Referring Cardiovascular Surgery 06/13/21 Dixon Valadez MD [address] [place] [address] Home Care Physician Family Practice 06/13/21 Kash Dueñas [address] [facility] [place] [address] Cardiology 07/14/21 Rajat العراقي Jr., MD [address] [place] [address] Urology 07/14/21 Akshat Shelton MD [address] [place] [address] Endocrinology 09/01/21 Ambulance Assistant Relationship Specialty Start Date End Date Dixon Valadez MD [address] [place] [address] PCP - General 06/30/08 Niraj Winkler PA-C 1 [place] [address] Referring Cardiovascular Surgery 06/13/21 Dixon Valadez MD [address] [place] [address] Home Care Physician Family Practice 06/13/21 Kash Dueñas [address] [place] [address] Cardiology 07/14/21 Rajat العراقي Jr., MD [address] [place] [address] Urology 07/14/21 Akshat Shelton MD [address] [place] [address] Endocrinology 09/01/21 Ambulance Assistant Relationship Specialty Start Date End Date Dixon Valadez MD [address] [place] [address] PCP - General 06/30/08 Niraj Winkler PA-C 1 [place] [address] Referring Cardiovascular Surgery 06/13/21 Dixon Valadez MD [address] [place] [address] Home Care Physician Family Practice 06/13/21 Kash Dueñas [address] [place] [address] Cardiology 07/14/21 Rajat العراقي Jr., MD [address] [place] [address] Urology 07/14/21 Akshat Shelton MD [address] [place] [address] Endocrinology 09/01/21 Ambulance Assistant Relationship Specialty Start Date End Date Dixon Valadez MD [address] [place] [address] PCP - General 06/30/08 Niraj Winkler PA-C 1 [place] [address] Referring Cardiovascular Surgery 06/13/21 Dixon Valadez MD [address] [place] [address] Home Care Physician Family Practice 06/13/21 Kash Dueñas [address] [place] [address] Cardiology 07/14/21 Rajat العراقي Jr., MD [address] [place] [address] Urology 07/14/21 Akshat Shelton MD [address] [place] [address] Endocrinology 09/01/21 Ambulance Assistant Relationship Specialty Start Date End Date Dixon aVladez MD [address] [place] [address] PCP - General 06/30/08 Niraj Winkler PA-C 1 [place] [address] Referring Cardiovascular Surgery 06/13/21 Dixon Valadez MD [address] [place] [address] Home Care Physician Family Practice 06/13/21 [address] [address] Cardiology 07/14/21 Rajat العراقي Jr., MD [address] [place] [address] Urology 07/14/21 Akshat Shelton MD [address] [place] [address] Endocrinology 09/01/21 Ambulance Assistant Relationship Specialty Start Date End Date Dixon Valadez MD [address] [place] [address] PCP - General 06/30/08 Niraj Winkler PA-C 1 [place] [address] Referring Cardiovascular Surgery 06/13/21 Dixon Valadez MD [address] [place] [address] Home Care Physician Family Practice 06/13/21 Kash Dueñas [address] [place] [address] Cardiology 07/14/21 Rajat العراقي Jr., MD [address] [place] [address] Urology 07/14/21 Akshat Shelton MD 6 [place] [address] Endocrinology 09/01/21 Ambulance Assistant Relationship Specialty Start Date End Date Dixon Valadez MD [address] [place] [address] PCP - General 06/30/08 Niraj Winkler PA-C 1 [place] [address] Referring Cardiovascular Surgery 06/13/21 Dixon Valadez MD [address] [place] [address] Home Care Physician Family Practice 06/13/21 Kash Dueñas [address] [place] [address] Cardiology 07/14/21 Rajat العر[place] [address] [place] [address] Urology 07/14/21 Akshat Shelton MD [address] [place] [address] Endocrinology 09/01/21 Ambulance Assistant Relationship Specialty Start Date End Date Dixon Valadez MD [address] [place] [address] PCP - General 06/30/08 Niraj Winkler PA-C 1 [place] [address] Referring Cardiovascular Surgery 06/13/21 Dixon Valadez MD [address] [place] [address] Home Care Physician Family Practice 06/13/21 Kash Dueñas [address] [place] [address] Cardiology 07/14/21 Rajat العراقي Jr., MD [address] [place] [address] Urology 07/14/21 Akshat Shelton MD [address] [place] [address] Endocrinology 09/01/21 Ambulance Assistant Relationship Specialty Start Date End Date Dixon Valadez MD [address] [place] [address] PCP - General 06/30/08 Niraj Winkler PA-C 1 [place] [address] Referring Cardiovascular Surgery 06/13/21 Dixon Valadez MD [address] [place] [address] Home Care Physician Family Practice 06/13/21 Kash Dueñas [address] [place] [address] Cardiology 07/14/21 Rajat العراقي Jr., MD [address] [place] [address] Urology 07/14/21 Akshat Shelton MD [address] [place] [address] Endocrinology 09/01/21 Ambulance Assistant Relationship Specialty Start Date End Date Dixon Valadez MD [address] [place] [address] PCP - General 06/30/08 Niraj Winkler PA-C 1 [place] [address] Referring Cardiovascular Surgery 06/13/21 Dixon Valadez MD [address] [place] [address] Home Care Physician Family Practice 06/13/21 Kash Dueñas [address] [place] [address] Cardiology 07/14/21 Rajat العراقي Jr., MD [address] [place] [address] Urology 07/14/21 Akshat Shelton MD [address] [place] [address] Endocrinology 09/01/21 Ambulance Assistant Relationship Specialty Start Date End Date Dixon Valadez MD [address] [place] [address] PCP - General 06/30/08 Niraj Winkler PA-C 1 [place] [address] Referring Cardiovascular Surgery 06/13/21 Dixon Valadez MD [address] [place] [address] Home Care Physician Family Practice 06/13/21 Kash Dueñas [address] [place] [address] Cardiology 07/14/21 Rajat العراقي Jr., MD [address] [place] [address] Urology 07/14/21 Akshat Shelton MD [address] [place] [address] Endocrinology 09/01/21 Ambulance Assistant Relationship Specialty Start Date End Date Dixon Valadez MD [address] [place] [address] PCP - General 06/30/08 Niraj Winkler PA-C 1 [place] [address] Referring Cardiovascular Surgery 06/13/21 Dixon Valadez MD [address] [place] [address] Home Care Physician Family Practice 06/13/21 Kash Dueñas [address] [place] [address] Cardiology 07/14/21 Rajat العراقي Jr., MD [address] [place] [address] Urology 07/14/21 Akshat Shelton MD [address] [place] [address] Endocrinology 09/01/21 Ambulance Assistant Relationship Specialty Start Date End Date Dixon Valadez MD [address] [place] [address] PCP - General 06/30/08 Niraj Winkler PA-C [address] [place] [address] Referring Cardiovascular Surgery 06/13/21 Dixon Valadez MD [address] [place] [address] Home Care Physician Family Practice 06/13/21 Kash Dueñas [address] [place] [address] Cardiology 07/14/21 Rajat العراقي Jr., MD [address] [place] [address] Urology 07/14/21 Akshat Shelton MD [address] [place] [address] Endocrinology 09/01/21 Ambulance Assistant Relationship Specialty Start Date End Date Dixon Valadez MD [address] [place] [address] PCP - General 06/30/08 Niraj Winkler PA-C 1 [place] [address] Referring Cardiovascular Surgery 06/13/21 Dixon Valadez MD [address] [place] [address] Home Care Physician Family Practice 06/13/21 Kash Dueñas [address] [place] [address] Cardiology 07/14/21 Rajat العراقي Jr., MD [facility] [place], [place] [address] Urology 07/14/21 Akshat Shelton MD [address] [place] [address] Endocrinology 09/01/21 Ambulance Assistant Relationship Specialty Start Date End Date Dixon Valadez MD [address] [place] [address] PCP - General 06/30/08 Niraj Winkler PA-C 1 [place] [address] Referring Cardiovascular Surgery 06/13/21 Dixon Valadez MD [address] [place] [address] Home Care Physician Family Practice 06/13/21 Kash Dueñas [address] [place] [address] Cardiology 07/14/21 Rajat العراقي Jr., MD [address] [place] [address] Urology 07/14/21 Akshat Shelton MD [address] [place] [address] Endocrinology 09/01/21 Ambulance Assistant Relationship Specialty Start Date End Date Dixon Valadez MD [address] [place] [address] PCP - General 06/30/08 Niraj Winkler PA-C 1 [place] [address] Referring Cardiovascular Surgery 06/13/21 Dixon Valadez MD [address] [place] [address] Home Care Physician Family Practice 06/13/21 Kash Dueñas [address] [place] [address] Cardiology 07/14/21 Rajat العراقي Jr., MD [address] [place] [address] Urology 07/14/21 Akshat Shelton MD [address] [place] [address] Endocrinology 09/01/21 Ambulance Assistant Relationship Specialty Start Date End Date Dixon Valadez MD [address] [place] [address] PCP - General 06/30/08 Niraj Winkler PA-C 1 [place] [address] Referring Cardiovascular Surgery 06/13/21 Dixon Valadez MD [address] [place] [address] Home Care Physician Family Practice 06/13/21 Kash Dueñas [address] [place] [address] Cardiology 07/14/21 Rajat العراقي Jr., MD [address] [place] [address] Urology 07/14/21 Akshat Shelton MD Endocrinology 09/01/21 Ambulance Assistant Relationship Specialty Start Date End Date Dixon Valadez MD [address] [place] [address] PCP - General 06/30/08 Niraj Winkler PA-C 1 [place] [address] Referring Cardiovascular Surgery 06/13/21 Dixon Valadez MD [address] [place] [address] Home Care Physician Family Practice 06/13/21 Kash Dueñas [address] [place] [address] Cardiology 07/14/21 Rajat العراقي Jr., MD [address] [place] [address] Urology 07/14/21 Akshat Shelton MD Endocrinology 09/01/21 Ambulance Assistant Relationship Specialty Start Date End Date Dixon Valadez MD [address] [place] [address] PCP - General 06/30/08 Niraj Winkler PA-C 1 [place], [place] [address] Referring Cardiovascular Surgery 06/13/21 Dixon Valadez MD [address] [place] [address] Home Care Physician Family Practice 06/13/21 Kash Dueñas [address] [place] [address] Cardiology 07/14/21 Rajat العراقي Jr., MD [address] [place] [address] Urology 07/14/21 Akshat Shelton MD Endocrinology 09/01/21 Ambulance Assistant Relationship Specialty Start Date End Date Dixon Valadez MD [address] [place] [address] PCP - General 06/30/08 Niraj Winkler PA-C 1 [place], [place] [address] Referring Cardiovascular Surgery 06/13/21 Dixon Valadez MD [address] [place] [address] Home Care Physician Family Practice 06/13/21 Kash Dueñas [address] [place] [address] Cardiology 07/14/21 Rajat العراقي Jr., MD [address] [place] [address] Urology 07/14/21 Akshat Shelton MD Endocrinology 09/01/21 Ambulance Assistant Relationship Specialty Start Date End Date Dixon Valadez MD [address] [place] [address] PCP - General 06/30/08 Niraj Winkler PA-C 1 [place] [address] Referring Cardiovascular Surgery 06/13/21 Dixon Valadez MD [address] [place] [address] Home Care Physician Family Practice 06/13/21 Kash Dueñas [address] [place] [address] Cardiology 07/14/21 Rajat العراقي Jr., MD [address] [place] [address] Urology 07/14/21 Akshat Shelton MD Endocrinology 09/01/21 Ambulance Assistant Relationship Specialty Start Date End Date Dixon Valadez MD [address] [place] [address] PCP - General 06/30/08 Niraj Winkler PA-C 1 [place] [address] Referring Cardiovascular Surgery 06/13/21 Dixon Valadez MD [address] [place] [address] Home Care Physician Family Practice 06/13/21 Kash Dueñas [address] [place] [address] Cardiology 07/14/21 Rajat العراقي Jr., MD [address] [place] [address] Urology 07/14/21 Akshat Shelton MD Endocrinology 09/01/21 Ambulance Assistant Relationship Specialty Start Date End Date Dixon Valadez MD [address] [place] [address] PCP - General 06/30/08 Niraj Winkler PA-C 1 [place], [place] [address] Referring Cardiovascular Surgery 06/13/21 Dixon Valadez MD [address] [place] [address] Home Care Physician Family Practice 06/13/21 Kash Dueñas [address] [place] [address] Cardiology 07/14/21 Rajat الع[place] [address] [place] [phone] Urology 07/14/21 Akshat Shelton MD Endocrinology 09/01/21 Ambulance Assistant Relationship Specialty Start Date End Date Dixon Valadez MD [address] [place] [address] PCP - General 06/30/08 Niraj Winkler PA-C 1 [place], [place] [address] Referring Cardiovascular Surgery 06/13/21 Dixon Valadez MD [address] [place] [address] Home Care Physician Family Practice 06/13/21 Kash Dueñas [address] [place] [address] Cardiology 07/14/21 Rajat العراقي Jr., MD [address] [place] [address] Urology 07/14/21 Akshat Shelton MD Endocrinology 09/01/21 Ambulance Assistant Relationship Specialty Start Date End Date Dixon Valadez MD [address] [place] [address] PCP - General 06/30/08 Niraj Winkler PA-C 1 [place] [address] Referring Cardiovascular Surgery 06/13/21 Dixon Valadez MD [address] [place] [address] Home Care Physician Family Practice 06/13/21 Kash Dueñas [address] [place] [address] Cardiology 07/14/21 Rajat العراقي Jr., MD [address] [place] [address] Urology 07/14/21 Akshat Shelton MD Endocrinology 09/01/21 Ambulance Assistant Relationship Specialty Start Date End Date Dixon Valadez MD [address] [place] [address] PCP - General 06/30/08 Niraj Winkler PA-C 1 [place], [place] [address] Referring Cardiovascular Surgery 06/13/21 Dixon Valadez MD [address] [place] [address] Home Care Physician Family Practice 06/13/21 Kash Dueñas [address] [place] [address] Cardiology 07/14/21 Rajat العراقي Jr., MD [address] [place] [address] Urology 07/14/21 Akshat Shelton MD Endocrinology 09/01/21 Ambulance Assistant Relationship Specialty Start Date End Date Dixon Valadez MD [address] [place] [address] PCP - General 06/30/08 Niraj Winkler PA-C 1 [place], [place] [address] Referring Cardiovascular Surgery 06/13/21 Dixon Valadez MD [address] [place] [address] Home Care Physician Family Practice 06/13/21 Kash Dueñas [address] [place] [address] Cardiology 07/14/21 Rajat العراقي Jr., MD [address] [place] [address] Urology 07/14/21 Akshat Shelton MD Endocrinology 09/01/21 Ambulance Assistant Relationship Specialty Start Date End Date Dixon Valadez MD [address] [place] [address] PCP - General 06/30/08 Niraj Winkler PA-C 1 [place] [address] Referring Cardiovascular Surgery 06/13/21 Dixon Valadez MD [address] [place] [address] Home Care Physician Family Practice 06/13/21 Kash Dueñas [address] [address] Cardiology 07/14/21 Rajat العراقي Jr., MD [address] [place] [address] Urology 07/14/21 Akshat Shelton MD Endocrinology 09/01/21 Ambulance Assistant Relationship Specialty Start Date End Date Dixon Valadez MD [address] [place] [address] PCP - General 06/30/08 Niraj Winkler PA-C 1 [place] [address] Referring Cardiovascular Surgery 06/13/21 Dixon Valadez MD [address] [place] [address] Home Care Physician Family Practice 06/13/21 Kahs Dueñas [address] [place] [address] Cardiology 07/14/21 Rajat العراقي Jr., MD [address] [place] [address] Urology 07/14/21 Akshat Shelton MD Endocrinology 09/01/21 Ambulance Assistant Relationship Specialty Start Date End Date Dixon Valadez MD [address] [place] [address] PCP - General 06/30/08 Niraj Winkler PA-C 1 [facility] [place] [address] Referring Cardiovascular Surgery 06/13/21 Dixon Valadez MD [address] [place] [address] Home Care Physician Family Practice 06/13/21 Kash Dueñas [address] [place] [address] Cardiology 07/14/21 Rajat العراقي Jr., MD [address] [place] [address] Urology 07/14/21 Akshat Shelton MD Endocrinology 09/01/21 Ambulance Assistant Relationship Specialty Start Date End Date Dixon Valadez MD [address] [place] [address] PCP - General 06/30/08 Niraj Winkler PA-C 1 [place] [address] Referring Cardiovascular Surgery 06/13/21 Dixon Valadez MD [address] [place] [address] Home Care Physician Family Practice 06/13/21 Kash Dueñas [address] [place] [address] Cardiology 07/14/21 Rajat العراقي Jr., MD [address] [place] [address] Urology 07/14/21 Akshat Shelton MD Endocrinology 09/01/21 Ambulance Assistant Relationship Specialty Start Date End Date Dixon Valadez MD [address] [place] [address] PCP - General 06/30/08 Niraj Winkler PA-C 1 [place] [address] Referring Cardiovascular Surgery 06/13/21 Dixon Valadez MD [address] [place] [address] Home Care Physician Family Practice 06/13/21 Kash Dueñas [address] [facility] [place] [address] Cardiology 07/14/21 Rajat العراقي Jr., MD [address] [place] [address] Urology 07/14/21 Akshat Shelton MD Endocrinology 09/01/21 Ambulance Assistant Relationship Specialty Start Date End Date Dixon Valadez MD [address] [place] [address] PCP - General 06/30/08 Niraj Winkler PA-C 1 [place] [address] Referring Cardiovascular Surgery 06/13/21 Dixon Valadez MD [address] [place] [address] Home Care Physician Family Practice 06/13/21 Kash Dueñas [address] [place] [address] Cardiology 07/14/21 Rajat العراقي Jr., MD [address] [place] [address] Urology 07/14/21 Akshat Shelton MD Endocrinology 09/01/21 Ambulance Assistant Relationship Specialty Start Date End Date Dixon Valadez MD [address] [place] [address] PCP - General 06/30/08 Niraj Winkler PA-C 1 [place] [address] Referring Cardiovascular Surgery 06/13/21 Dixon Valadez MD [address] [place] [address] Home Care Physician Family Practice 06/13/21 Kash Dueñas [address] [place] [address] Cardiology 07/14/21 Raj[place] العر[place] [address] [place] [address] Urology 07/14/21 Akshat Shelton MD Endocrinology 09/01/21 Ambulance Assistant Relationship Specialty Start Date End Date Dixon Valadez MD [address] [place] [address] PCP - General 06/30/08 Niraj Winkler PA-C 1 [place] [address] Referring Cardiovascular Surgery 06/13/21 Dixon Valadez MD [address] [place] [address] Home Care Physician Family Practice 06/13/21 Kash Dueñas [address] [place] [address] Cardiology 07/14/21 Rajat العراقي Jr., MD [address] [place] [address] Urology 07/14/21 Akshat Shelton MD Endocrinology 09/01/21 Ambulance Assistant Relationship Specialty Start Date End Date Dixon Valadez MD [address] [place] [address] PCP - General 06/30/08 Niraj Winkler PA-C 1 [place] [address] Referring Cardiovascular Surgery 06/13/21 Dixon Valadez MD [address] [place] [address] Home Care Physician Family Practice 06/13/21 Kash Dueñas [address] [place] [address] Cardiology 07/14/21 Rajat العراقي Jr., MD [address] [place] [address] Urology 07/14/21 Akshat Shelton MD Endocrinology 09/01/21 Ambulance Assistant Relationship Specialty Start Date End Date Dixon Valadez MD [address] [place] [address] PCP - General 06/30/08 Niraj Winkler PA-C 1 [facility] [place] [address] Referring Cardiovascular Surgery 06/13/21 Dixon Valadez MD [address] [place] [address] Home Care Physician Family Practice 06/13/21 Kash Dueñas [address] [place] [address] Cardiology 07/14/21 Rajat العراقي Jr., MD [address] [place] [address] Urology 07/14/21 Akshat Shelton MD Endocrinology 09/01/21 Ambulance Assistant Relationship Specialty Start Date End Date Dixon Valadez MD [address] [place] [address] PCP - General 06/30/08 Niraj Winkler PA-C [address] [place] [address] Referring Cardiovascular Surgery 06/13/21 Dixon Valadez MD [address] [place] [address] Home Care Physician Family Practice 06/13/21 Kash Dueñas [address] [place] [address] Cardiology 07/14/21 Rajat العراقي Jr., MD [address] [place] [address] Urology 07/14/21 Akshat Shelton MD Endocrinology 09/01/21 Ambulance Assistant Relationship Specialty Start Date End Date Dixon Valadez MD [address] [place] [address] PCP - General 06/30/08 Niraj Winkler PA-C 1 [place] [address] Referring Cardiovascular Surgery 06/13/21 Dixon Valadez MD [address] [place] [address] Home Care Physician Family Practice 06/13/21 Kash Dueñas [address] [place] [address] Cardiology 07/14/21 Rajat العراقي Jr., MD [address] [place] [address] Urology 07/14/21 Akshat Shelton MD Endocrinology 09/01/21 Ambulance Assistant Relationship Specialty Start Date End Date Dixon Valadez MD [address] [place] [address] PCP - General 06/30/08 Niraj Winkler PA-C 1 [place], [place] [address] Referring Cardiovascular Surgery 06/13/21 Dixon Valadez MD [address] [place] [address] Home Care Physician Family Practice 06/13/21 Kash Dueñas [address] [place] [address] Cardiology 07/14/21 Rajat العراقي Jr., MD [address] [place] [address] Urology 07/14/21 Akshat Shelton MD Endocrinology 09/01/21 Ambulance Assistant Relationship Specialty Start Date End Date Dixon Valadez MD [address] [place] [address] PCP - General 06/30/08 Niraj Winkler PA-C 1 [place], [place] [address] Referring Cardiovascular Surgery 06/13/21 Dixon Valadez MD [address] [place] [address] Home Care Physician Family Practice 06/13/21 Kash Dueñas [address] [place] [address] Cardiology 07/14/21 Rajat العراقي Jr., MD [address] [place] [address] Urology 07/14/21 Akshat Shelton MD Endocrinology 09/01/21 Ambulance Assistant Relationship Specialty Start Date End Date Dixon Valadez MD [address] [place] [address] PCP - General 06/30/08 Niraj Winkler PA-C 1 [place], [place] [address] Referring Cardiovascular Surgery 06/13/21 Dixon Valadez MD [address] [place] [address] Home Care Physician Family Practice 06/13/21 Kash Dueñas [address] [place] [address] Cardiology 07/14/21 Rajat العراقي Jr., MD [address] [place] [address] Urology 07/14/21 Akshat Shelton MD Endocrinology 09/01/21 Ambulance Assistant Relationship Specialty Start Date End Date Dixon Valadez MD [address] [place] [address] PCP - General 06/30/08 Niraj Winkler PA-C 1 [place] [address] Referring Cardiovascular Surgery 06/13/21 Dixon Valadez MD [address] [place] [address] Home Care Provider Family Practice 06/13/21 [address] [place] [address] Cardiology 07/14/21 Rajat العراقي Jr., MD [address] [place] [address] Urology 07/14/21 Akshat Shelton MD Endocrinology 09/01/21 Ambulance Assistant Relationship Specialty Start Date End Date Dixon Valadez MD [address] [place] [address] PCP - General 06/30/08 Niraj Winkler PA-C [address] [place] [address] Referring Cardiovascular Surgery 06/13/21 Dixon Valadez MD [address] [place] [address] Home Care Provider Family Practice 06/13/21 Kash Dueñas [address] [place] [address] Cardiology 07/14/21 Rajat العراقي Jr., MD [address] [place] [address] Urology 07/14/21 Akshat Shelton MD Endocrinology 09/01/21 Ambulance Assistant Relationship Specialty Start Date End Date Dixon Valadez MD [address] [place] [address] PCP - General 06/30/08 Niraj Winkler PASharanC [address] [place] [address] Referring Cardiovascular Surgery 06/13/21 Dixon Valadez MD [address] [place] [address] Home Care Provider Family Medicine 06/13/21 Kash Dueñas [address] [place] [address] Cardiology 07/14/21 Rajat العراقي Jr., MD [address] [place] [address] Urology 07/14/21 Akshat Shelton MD Endocrinology 09/01/21 Ambulance Assistant Relationship Specialty Start Date End Date Dixon Valadez MD [address] [place] [address] PCP - General 06/30/08 Niraj Winkler PA-C [address] [place] [address] Referring Cardiovascular Surgery 06/13/21 Dixon Valadez MD [address] [place] [address] Home Care Provider Family Medicine 06/13/21 Kash Dueñas [address] [place] [address] Cardiology 07/14/21 Rajat العراقي Jr., MD [address] [place] [address] Urology 07/14/21 Akshat Shelton MD Endocrinology 09/01/21 Ambulance Assistant Relationship Specialty Start Date End Date Dixon Valadez MD [address] [place] [address] PCP - General 06/30/08 Niraj Winkler PA-C [address] [place], [place] [id number] Referring Cardiovascular Surgery 06/13/21 Dixon Valadez MD [address] [place] [address] Home Care Provider Family Medicine 06/13/21 Kash Dueñas [address] [place] [address] Cardiology 07/14/21 Raj[place] الع[place] [address] [place] [address] Urology 07/14/21 Akshat Shelton MD Endocrinology 09/01/21 Ambulance Assistant Relationship Specialty Start Date End Date Dixon Valadez MD [address] [place] [address] PCP - General 06/30/08 Niraj Winkler PA-C [address] [place], [place] [phone] Referring Cardiovascular Surgery 06/13/21 Dixon Valadez MD [address] [place] [address] Home Care Provider Family Medicine 06/13/21 Kash Dueñas [address] [place] [address] Cardiology 07/14/21 Raj[place] الع[place] [address] [place] [address] Urology 07/14/21 Akshat Shelton MD Endocrinology 09/01/21 Ambulance Assistant Relationship Specialty Start Date End Date Dixon Valadez MD [address] [place] [address] PCP - General 06/30/08 Niraj Winkler PA-C [address] [place] [address] Referring Cardiovascular Surgery 06/13/21 Dixon Valadez MD [address] [place] [address] Home Care Provider Family Medicine 06/13/21 Kash Dueñas [address] [place] [address] Cardiology 07/14/21 Rajat العراقي Jr., MD [address] [place] [address] Urology 07/14/21 Akshat Shelton MD Endocrinology 09/01/21 Ambulance Assistant Relationship Specialty Start Date End Date Dixon Valadez MD [address] [place] [address] PCP - General 06/30/08 Niraj Winkler PA-C [address] [place] [address] Referring Cardiovascular Surgery 06/13/21 Dixon Valadez MD [address] [place] [address] Home Care Provider Family Medicine 06/13/21 [address] [place] [address] Cardiology 07/14/21 Rajat العراقي Jr., MD [address] [place] [address] Urology 07/14/21 Akshat Shelton MD Endocrinology 09/01/21 Ambulance Assistant Relationship Specialty Start Date End Date Dixon Valadez MD [address] [place] [address] PCP - General 06/30/08 Niraj Winkler PA-C [address] [place], [place] [phone] Referring Cardiovascular Surgery 06/13/21 Dixon Valadez MD [address] [place] [address] Home Care Provider Family Medicine 06/13/21 Kash Dueñas [address] [place] [address] Cardiology 07/14/21 Rajat العراقي Jr., MD [address] [place] [address] Urology 07/14/21 Akshat Shelton MD Endocrinology 09/01/21 Ambulance Assistant Relationship Specialty Start Date End Date Dixon Valadez MD [address] [place] [address] PCP - General 06/30/08 Niraj Winkler PAAnjali 1 [facility] [address] Referring Cardiovascular Surgery 06/13/21 Dixon Valadez MD [address] [place] [address] Home Care Provider Family Medicine 06/13/21 Kash Dueñas [address] [place] [address] Cardiology 07/14/21 Rajat العراقي Jr., MD [address] [place] [address] Urology 07/14/21 Akshat Shelton MD Endocrinology 09/01/21 Ambulance Assistant Relationship Specialty Start Date End Date Dixon Valadez MD [address] [place] [address] PCP - General 06/30/08 Niraj Winkler PA-C [address] [place] [address] Referring Cardiovascular Surgery 06/13/21 Dixon Valadez MD [address] [place] [address] Home Care Provider Family Medicine 06/13/21 Kash Dueñas [address] [place] [address] Cardiology 07/14/21 Rajat العراقي Jr., MD [address] [place] [address] Urology 07/14/21 Akshat Shelton MD Endocrinology 09/01/21 Ambulance Assistant Relationship Specialty Start Date End Date Dixon Valadez MD [address] [place] [address] PCP - General 06/30/08 Niraj Winkler PA-C [address] [place], [place] [phone] Referring Cardiovascular Surgery 06/13/21 Dixon Valadez MD [address] [place] [address] Home Care Provider Family Medicine 06/13/21 Kash Dueñas [address] [place] [address] Cardiology 07/14/21 Rajat العراقي Jr., MD [address] [place] [address] Urology 07/14/21 [place] [address] [place] [address] Endocrinology 09/01/21 Ambulance Assistant Relationship Specialty Start Date End Date Dixon Valadez MD [address] [place] [address] PCP - General 06/30/08 Niraj Winkler PA-C [address] [place] [address] Referring Cardiovascular Surgery 06/13/21 Dixon Valadez MD [address] [place] [address] Home Care Provider Family Medicine 06/13/21 Kash Dueñas [address] [place] [address] Cardiology 07/14/21 Raj[place] الع[place] [address] [place] [address] Urology 07/14/21 Akshat Shelton MD [address] [place] [address] Endocrinology 09/01/21 Ambulance Assistant Relationship Specialty Start Date End Date Dixon Valadez MD [address] [place] [address] PCP - General 06/30/08 Niraj Winkler PA-C [address] [place] [address] Referring Cardiovascular Surgery 06/13/21 Dixon Valadez MD [address] [place] [address] Home Care Provider Family Medicine 06/13/21 Kash Dueñas [address] [place] [address] Cardiology 07/14/21 Rajat العراقي Jr., MD [address] [place] [address] Urology 07/14/21 [place] [address] [place] [address] Endocrinology 09/01/21 Ambulance Assistant Relationship Specialty Start Date End Date Dixon Valadez MD [address] [place] [address] PCP - General 06/30/08 Niraj Winkler PA-C 1 [place] [address] Referring Cardiovascular Surgery 06/13/21 Dixon Valadez MD [address] [place] [address] Home Care Provider Family Medicine 06/13/21 Kash Dueñas [address] [place] [address] Cardiology 07/14/21 Rajat الع[place] [address] [place] [address] Urology 07/14/21 [place] [address] [place] [address] Endocrinology 09/01/21 Ambulance Assistant Relationship Specialty Start Date End Date Dixon Valadez MD [address] [place] [address] PCP - General 06/30/08 Niraj Winkler PA-C [address] [place] [address] Referring Cardiovascular Surgery 06/13/21 Dixon Valadez MD [address] [place] [address] Home Care Provider Family Medicine 06/13/21 Kash Dueñas [address] [place] [address] Cardiology 07/14/21 Rajat العراقي Jr., MD [address] [place] [address] Urology 07/14/21 Akshat Shelton MD [address] [place] [address] Endocrinology 09/01/21 Ambulance Assistant Relationship Specialty Start Date End Date Dixon Valadez MD [address] [place] [address] PCP - General 06/30/08 Niraj Winkler PA-C [address] [place], [place] [phone] Referring Cardiovascular Surgery 06/13/21 Dixon Valadez MD [address] [place] [address] Home Care Provider Family Medicine 06/13/21 Kash Dueñas [address] [place] [address] Cardiology 07/14/21 Rajat العراقي Jr., MD [address] [place] [address] Urology 07/14/21 [place] [address] [place] [address] Endocrinology 09/01/21 Ambulance Assistant Relationship Specialty Start Date End Date Dixon Valadez MD [address] [place] [address] PCP - General 06/30/08 Niraj Winkler PA-C [address] [place] [address] Referring Cardiovascular Surgery 06/13/21 Dixon Valadez MD [address] [place] [address] Home Care Provider Family Medicine 06/13/21 Kash Dueñas [address] [place] [address] Cardiology 07/14/21 Raj[place] الع[place] [address] [place] [address] Urology 07/14/21 Akshat Shelton MD [address] [place] [address] Endocrinology 09/01/21 Team Status: Active Member Role Status Dates Dr. Dixon Valadez MD Family Provider Active Dr. Dixon Valadez MD Primary Care Provider Active Team Status: Inactive Member Role Status Dates Dr. Dixon Valadez MD Primary Care Provider, Referr ing Provider Active Lucy Madrigal PA, PA Active Adriana Scott NP, ROENTGENOLOGY TEACHER-C Attending Provider Active Team Status: Inactive Member Role Status Dates Dr. Dixon Valadez MD Primary Care Provider, Referr ing Provider Active Zohra Oconnell NP-C Attending Provider Active Team Status: Active Member Role Status Dates Dr. Dixon Valadez MD Primary Care Provider Active Dr. Kash Dueñas MD Attending Provider, Referring Provider Active Team Status: Inactive Member Role Status Dates Dr. Dixon Valadez MD Primary Care Provider Active DANETTE Coronado Attending Provider, Referring Pr ovider Active Lucy Madrigal PA, PA Other Provider Active Team Status: Inactive Member Role Status Dates Dr. Dixon Valadez MD Primary Care Provider Active Dr. Kash Dueñas MD Attending Provider, Referring Provider Active Ambulance Assistant Relationship Specialty Start Date End Date Dixon Valadez MD [address] [place], [place] 40479691 PCP - General 06/30/08 Niraj Winkler, PA-C [address] [place] [address] Referring Cardiovascular Surgery 06/13/21 Dixon Valadez MD [address] [place], [place] 1874[address] Home Care Provider Family Medicine 06/13/21 Kash Dueñas [address] [place] [address] Cardiology 07/14/21 Rajat العراقي Jr., MD [address] [place] [address] Urology 07/14/21 Akshat Shelton MD [address] [place] [address] Endocrinology 09/01/21 Ambulance Assistant Relationship Specialty Start Date End Date Dixon Valadez MD [address] [place] [address] PCP - General 06/30/08 Niraj Winkler PA-C [address] [place] [phone] Referring Cardiovascular Surgery 06/13/21 Dixon Valadez MD [address] [place] [address] Home Care Provider Family Medicine 06/13/21 Kash Dueñas [address] [place] [address] Cardiology 07/14/21 Rajta العراقي Jr., MD [address] [place] [address] Urology 07/14/21 Akshat Shelton MD [address] [place] [address] Endocrinology 09/01/21 Ambulance Assistant Relationship Specialty Start Date End Date Dixon Valadez MD [address] [place] [address] PCP - General 06/30/08 Niraj Winkler PA-C [address] [place], [place] [phone] Referring Cardiovascular Surgery 06/13/21 Dixon Valadez MD [address] [place], [place] 232621 Home Care Provider Family Medicine 06/13/21 Kash Dueñas [address] [place] [address] Cardiology 07/14/21 Rajat العراقي Jr., MD [facility] [place] [address] Urology 07/14/21 Akshat Shelton MD [address] [place] [address] Endocrinology 09/01/21 Ambulance Assistant Relationship Specialty Start Date End Date Dixon Valadez MD [address] [place], [place] 18[address]01 PCP - General 06/30/08 Niraj Winkler PA-C [address] [place] [address] Referring Cardiovascular Surgery 06/13/21 Dixon Valadez MD [address] [place], [place] 078951 Home Care Provider Family Medicine 06/13/21 Kash Dueñas [address] [place] [address] Cardiology 07/14/21 Rajat العراقي Jr., MD [address] [place] [address] Urology 07/14/21 Akshat Shelton MD [address] [place] [address] Endocrinology 09/01/21 Ambulance Assistant Relationship Specialty Start Date End Date Dixon Valadez MD [address] [place] [address] PCP - General 06/30/08 Niraj Winkler PA-C [address] [place] [address] Referring Cardiovascular Surgery 06/13/21 Dixon Valadez MD [address] [place] [address] Home Care Provider Family Medicine 06/13/21 Kash Dueñas MD [facility] [place] [address] Cardiology 07/14/21 Rajat العراقي Jr., MD [address] [place] [address] Urology 07/14/21 Akshat Shelton MD [address] [place] [address] Endocrinology 09/01/21 Ambulance Assistant Relationship Specialty Start Date End Date Dixon Valadez MD [address] [place], [place] 083671 PCP - General 06/30/08 Niraj Winkler PA-C [address] [place], [place] [phone] Referring Cardiovascular Surgery 06/13/21 Dixon Valadez MD [address] [place] [address] Home Care Provider Family Medicine 06/13/21 Kash Dueñas MD [address] [facility] [place] [address] Cardiology 07/14/21 Rajat العراقي Jr., MD [address] [place] [address] Urology 07/14/21 Akshat Shelton MD [address] [place] [address] Endocrinology 09/01/21 Ambulance Assistant Relationship Specialty Start Date End Date Dixon Valadez MD [address] [place] [address] PCP - General 06/30/08 Niraj Winkler PA-C [address] [place] [address] Referring Cardiovascular Surgery 06/13/21 Dixon Valadez MD [address] [place] [address] Home Care Provider Family Medicine 06/13/21 Kash Dueñas MD [address] [place] [address] Cardiology 07/14/21 Rajat العراقي Jr., MD [address] [place] [address] Urology 07/14/21 Akshat Shelton MD [address] [place] [address] Endocrinology 09/01/21 Ambulance Assistant Relationship Specialty Start Date End Date Dixon Valadez MD [address] [place] [address] PCP - General 06/30/08 Niraj Winkler PA-C [address] [place] [address] Referring Cardiovascular Surgery 06/13/21 Dixon Valadez MD [address] [place] [address] Home Care Provider Family Medicine 06/13/21 Kash Dueñas MD [address] [place] [address] Cardiology 07/14/21 Rajat العراقي Jr., MD [address] [place] [address] Urology 07/14/21 Akshat Shelton MD [address] [place] [address] Endocrinology 09/01/21 Ambulance Assistant Relationship Specialty Start Date End Date Dixon Valadez MD [address] [place], [place] 251421 PCP - General 06/30/08 Niraj Winkler PA-C 1 [facility], [place] [phone] Referring Cardiovascular Surgery 06/13/21 Dixon Valadez MD [address] [place], [place] 989191 Home Care Provider Family Medicine 06/13/21 Kash Dueñas MD [address] [place] [address] Cardiology 07/14/21 Rajat العراقي Jr., MD [address] [place] [address] Urology 07/14/21 Akshat Shelton MD [address] [place] [address] Endocrinology 09/01/21 Ambulance Assistant Relationship Specialty Start Date End Date Dixon Valadez MD [address] [place] [address] PCP - General 06/30/08 Niraj Winkler PA-C [address] [place], [place] [phone] Referring Cardiovascular Surgery 06/13/21 Dixon Valadez MD [address] [place] [address] Home Care Provider Family Medicine 06/13/21 Kash Dueñas MD [address] [place] [address] Cardiology 07/14/21 Rajat العراقي Jr., MD [address] [place] [address] Urology 07/14/21 Akshat Shelton MD [address] [place], [place] 915423 Endocrinology 09/01/21 Ambulance Assistant Relationship Specialty Start Date End Date Dixon Valadez MD [address] [place] [address] PCP - General 06/30/08 Niraj Winkler PA-C [address] [place], [place] [phone] Referring Cardiovascular Surgery 06/13/21 Dixon Valadez MD [address] [place] [address] Home Care Provider Family Medicine 06/13/21 Kash Dueñas MD [address] [place] [address] Cardiology 07/14/21 Rajat العراقي Jr., MD [address] [place] [address] Urology 07/14/21 Akshat Shelton MD [address] [place], [place] 585773 Endocrinology 09/01/21 Ambulance Assistant Relationship Specialty Start Date End Date Dixon Valadez MD [address] [place] [address] PCP - General 06/30/08 Niraj Winkler PA-C [address] [place] [address] Referring Cardiovascular Surgery 06/13/21 Dixon Valadez MD [address] [place] [address] Home Care Provider Family Medicine 06/13/21 Kash Dueñas MD [address] [place] [address] Cardiology 07/14/21 Rajat العراقي Jr., MD [address] [place] [address] Urology 07/14/21 Akshat Shelton MD [address] [place] [address] Endocrinology 09/01/21 Ambulance Assistant Relationship Specialty Start Date End Date Dixon Valadez MD [address] [place] [address] PCP - General 06/30/08 Niraj Winkler PA-C [address] [place] [address] Referring Cardiovascular Surgery 06/13/21 Dixon Valadez MD [address] [place] [address] Home Care Provider Family Medicine 06/13/21 Kash Dueñas MD [address] [place] [address] Cardiology 07/14/21 Rajat العراقي Jr., MD [facility] [place] [address] Urology 07/14/21 Akshat Shelton MD [address] [place] [address] Endocrinology 09/01/21 Ambulance Assistant Relationship Specialty Start Date End Date Dixon Valadez MD [address] [place] [address] PCP - General 06/30/08 Niraj Winkler PA-C [address] [place] [address] Referring Cardiovascular Surgery 06/13/21 Dixon Valadez MD [address] [place] [address] Home Care Provider Family Medicine 06/13/21 Kash Dueñas MD 1 [place] [address] Cardiology 07/14/21 Rajat العراقي Jr., MD [address] [place] [address] Urology 07/14/21 Akshat Shelton MD [address] [place] [address] Endocrinology 09/01/21 Ambulance Assistant Relationship Specialty Start Date End Date Dixon Valadez MD [address] [place] [address] PCP - General 06/30/08 Niraj Winkler PA-C [address] [place] [address] Referring Cardiovascular Surgery 06/13/21 Dixon Valadez MD [address] [place] [address] Home Care Provider Family Medicine 06/13/21 Kash Dueñas MD [address] [place] [address] Cardiology 07/14/21 Rajat العراقي Jr., MD [address] [place] [address] Urology 07/14/21 Akshat Shelton MD [address] [place] [address] Endocrinology 09/01/21 Ambulance Assistant Relationship Specialty Start Date End Date Dixon Valadez MD [address] [place], [place] 014931 PCP - General 06/30/08 Niraj Winkler PA-C [address] [place], [place] [phone] Referring Cardiovascular Surgery 06/13/21 Dixon Valadez MD [address] [place], [place] 887791 Home Care Provider Family Medicine 06/13/21 Kash Dueñas MD [address] [place] [address] Cardiology 07/14/21 Rajat العراقي Jr., MD [address] [place] [address] Urology 07/14/21 Akshat Shelton MD [address] [place] [address] Endocrinology 09/01/21 Ambulance Assistant Relationship Specialty Start Date End Date Dixon Valadez MD [address] [place] [address] PCP - General 06/30/08 Niraj Winkler PA-C [address] [place], [place] [phone] Referring Cardiovascular Surgery 06/13/21 Dixon Valadez MD [address] [place] [address] Home Care Provider Family Medicine 06/13/21 Kash Dueñas MD [address] [place], [place] 79628307 Cardiology 07/14/21 Rajat العراقي Jr., MD [address] [place] [address] Urology 07/14/21 Akshat Shelton MD [address] [place], [place] 629933 Endocrinology 09/01/21 Ambulance Assistant Relationship Specialty Start Date End Date Dixon Valadez MD [address] [place], [place] 558241 PCP - General 06/30/08 Niraj Winkler PA-C [address] [place], [place] [phone] Referring Cardiovascular Surgery 06/13/21 Dixon Valadez MD [address] [place], [place] 855691 Home Care Provider Family Medicine 06/13/21 Kash Dueñas MD [address] [place] [address] Cardiology 07/14/21 Rajat العراقي Jr., MD [address] [place] [address] Urology 07/14/21 Akshat Shelton MD [address] [place] [address] Endocrinology 09/01/21 Ambulance Assistant Relationship Specialty Start Date End Date Dixon Valadez MD [address] [place] [address] PCP - General 06/30/08 Niraj Winkler PA-C [address] [place] [address] Referring Cardiovascular Surgery 06/13/21 Dixon Valadez MD [address] [place] [address] Home Care Provider Family Medicine 06/13/21 Kash Dueñas MD [address] [place] [address] Cardiology 07/14/21 Rajat العراقي Jr., MD [address] [place], [place] 168513 Urology 07/14/21 Akshat Shelton MD [address] [place], [place] 654373 Endocrinology 09/01/21 Lisa Rivera APRN.SUPPORT SERVICE TECH [address] [place] [address] Product Safety Consultant Family Medicine 03/23/24 Ambulance Assistant Relationship Specialty Start Date End Date Dixon Valadez MD [address] [place] [address] PCP - General 06/30/08 Niraj Winkler PA-C [address] [place] [address] Referring Cardiovascular Surgery 06/13/21 Dixon Valadez MD [address] [place], [place] 240511 Home Care Provider Family Medicine 06/13/21 Kash Dueñas MD [address] [place] [address] Cardiology 07/14/21 Raj[place] ال[place] [address] [place] [address] Urology 07/14/21 Akshat Shelton MD [address] [place] [address] Endocrinology 09/01/21 iLsa Rivera APRN.SUPPORT SERVICE TECH [address] [place] [address] Product Safety Consultant Family Medicine 03/23/24 Maxim Naik APRN.SUPPORT SERVICE TECH [address] [place] [address] Product Safety Consultant Family Medicine 04/01/24 Ambulance Assistant Relationship Specialty Start Date End Date Dixon Valadez MD [address] [place] [address] PCP - General 06/30/08 Niraj Winkler PA-C [address] [place] [address] Referring Cardiovascular Surgery 06/13/21 Dixon Valadez MD [address] [place] [address] Home Care Provider Family Medicine 06/13/21 Kash Dueñas MD [address] [place] [address] Cardiology 07/14/21 Rajat العراقي Jr., MD [address] [place] [address] Urology 07/14/21 Akshat Shelton MD [address] [place] [address] Endocrinology 09/01/21 Lisa Rivera, THERAPY ASSISTANT.SUPPORT SERVICE TECH [address] [place] [address] Product Safety Consultant Family Medicine 03/23/24 Maxim Naik APRN.SUPPORT SERVICE TECH [address] [place] [address] Product Safety Consultant Family Medicine 04/01/24 Ambulance Assistant Relationship Specialty Start Date End Date Dixon Valadez MD [address] [place] [address] PCP - General 06/30/08 Niraj Winkler PA-C [address] [place] [address] Referring Cardiovascular Surgery 06/13/21 Dixon Valadez MD [address] [place] [address] Home Care Provider Family Medicine 06/13/21 Kash Dueñas MD 1 [place] [address] Cardiology 07/14/21 Rajat العراقي Jr., MD [address] [place], [place] 560603 Urology 07/14/21 Akshat Shelton MD [address] [place], [place] 233683 Endocrinology 09/01/21 Lisa Rivera APRN.SUPPORT SERVICE TECH [address] [place] [address] Product Safety Consultant Family Medicine 03/23/24 Maxim Naik APRN.SUPPORT SERVICE TECH [address] [place] [address] Product Safety Consultant Family Medicine 04/01/24 Ambulance Assistant Relationship Specialty Start Date End Date Dixon Valadez MD [address] [place], [place] 655651 PCP - General 06/30/08 Niraj Winkler PA-C 1 [place] [address] Referring Cardiovascular Surgery 06/13/21 Dixon Valadez MD [address] [place] [address] Home Care Provider Family Medicine 06/13/21 Kash Dueñas MD 1 [place] [address] Cardiology 07/14/21 Rajat العراقي Jr., MD [address] [place] [address] Urology 07/14/21 Akshat Shelton MD [address] [place] [address] Endocrinology 09/01/21 Lisa Rivera APRN.SUPPORT SERVICE TECH [address] [place] [address] Product Safety Consultant Family Medicine 03/23/24 Maxim Naik APRN.SUPPORT SERVICE TECH [address] [place] [address] Product Safety Consultant Family Medicine 04/01/24 Ambulance Assistant Relationship Specialty Start Date End Date Dixon Valadez MD [address] [place], [place] 185451 PCP - General 06/30/08 Niraj Winkler PA-C 1 [place] [address] Referring Cardiovascular Surgery 06/13/21 Dixon Valadez MD [address] [place], [place] 737201 Home Care Provider Family Medicine 06/13/21 Kash Dueñas MD 1 [place] [address] Cardiology 07/14/21 Rajat العراقي Jr., MD [address] [place] [address] Urology 07/14/21 Akshat Shelton MD [address] [place] [address] Endocrinology 09/01/21 Lisa Rivera APRN.SUPPORT SERVICE TECH [address] [place] [address] Product Safety Consultant Family Medicine 03/23/24 Maxim Naik APRN.SUPPORT SERVICE TECH [address] [place] [address] Product Safety Consultant Family Medicine 04/01/24 Ambulance Assistant Relationship Specialty Start Date End Date Dixon Valadez MD [address] [place], [place] 292921 PCP - General 06/30/08 Niraj Winkler PA-C [address] [place], [place] [phone] Referring Cardiovascular Surgery 06/13/21 Dixon Valadez MD [facility] [place] [address] Home Care Provider Family Medicine 06/13/21 Kash Dueñas MD 1 [place] [address] Cardiology 07/14/21 Rajat العراقي Jr., MD [address] [place] [address] Urology 07/14/21 Akshat Shelton MD [address] [place] [address] 276473 Endocrinology 09/01/21 Lisa Rivera APRN.SUPPORT SERVICE TECH [address] [place] [address] Product Safety Consultant Family Medicine 03/23/24 Maxim Naik APRN.SUPPORT SERVICE TECH [address] [place], [place] 604731 Product Safety Consultant Family Medicine 04/01/24 Ambulance Assistant Relationship Specialty Start Date End Date Dixon Valadez MD [address] [place], [place] 382051 PCP - General 06/30/08 Niraj Winkler PA-C [address] [place], [place] [phone] Referring Cardiovascular Surgery 06/13/21 Dixon Valadez MD [address] [place], [place] 966681 Home Care Provider Family Medicine 06/13/21 Kash Dueñas MD 1 [place] [address] Cardiology 07/14/21 Rajat العراقي Jr., MD [facility] [place] [address] Urology 07/14/21 Akshat Shelton MD [address] [place] [address] Endocrinology 09/01/21 Lisa Rivera APRN.SUPPORT SERVICE TECH [address] [place] [address] Product Safety Consultant Family [facility] 03/23/24 Maxim Naik APRN.SUPPORT SERVICE TECH [address] [place] [address] Product Safety Consultant Family Medicine 04/01/24 Ambulance Assistant Relationship Specialty Start Date End Date Dixon Valadez MD [address] [place] [address] PCP - General 06/30/08 Niraj Winkler PA-C 1 [place] [address] Referring Cardiovascular Surgery 06/13/21 Dixon Valadez MD [address] [place], [place] 165971 Home Care Provider Family Medicine 06/13/21 Kash Dueñas MD 1 [place] [address] Cardiology 07/14/21 Rajat العراقي Jr., MD [address] [place] [address] Urology 07/14/21 Akshat Shelton MD [address] [place], [place] [address] Endocrinology 09/01/21 Lisa Rivera APRN.SUPPORT SERVICE TECH [address] [place] [address] Product Safety Consultant Family Medicine 03/23/24 Maxim Naik APRN.SUPPORT SERVICE TECH [address] [place] [address] Product Safety Consultant Family Medicine 04/01/24 Ambulance Assistant Relationship Specialty Start Date End Date Dixon Valadez MD [address] [place], [place] [address] PCP - General 06/30/08 Niraj Winkler PA-C [address] [place] [address] Referring Cardiovascular Surgery 06/13/21 Dixon Valadez MD [address] [place], [place] [id number] Home Care Provider Family Medicine 06/13/21 Kash Dueñas MD [address] [place] [address] Cardiology 07/14/21 Rajat العراقي Jr., MD [address] [place] [address] Urology 07/14/21 Akshat Shelton MD [address] [place] [address] Endocrinology 09/01/21 Lisa Rivera, THERAPY ASSISTANT.SUPPORT SERVICE TECH [address] [place] [address] Product Safety Consultant Family Medicine 03/23/24 Maxim Naik APRN.SUPPORT SERVICE TECH [address] [place] [address] Product Safety Consultant Family Medicine 04/01/24 Ambulance Assistant Relationship Specialty Start Date End Date Dixon Valadez MD [address] [place] [address] PCP - General 06/30/08 Niraj Winkler PA-C [address] [place], [place] [id number] Referring Cardiovascular Surgery 06/13/21 Dixon Valadez MD [address] [place], [place] [address]85[address] Home Care Provider Family Medicine 06/13/21 Kash Dueñas MD [address] [place] [address] Cardiology 07/14/21 Rajat العراقي Jr., MD [address] [place] [address] Urology 07/14/21 Akshat Shelton MD [address] [place] [address] Endocrinology 09/01/21 Lisa Rivera APRN.SUPPORT SERVICE TECH [address] [place] [address] Product Safety Consultant Family Medicine 03/23/24 Maxim Naik APRN.SUPPORT SERVICE TECH [address] [place] [address] Product Safety Consultant Family Medicine 04/01/24 Ambulance Assistant Relationship Specialty Start Date End Date Dixon Valadez MD [address] [place] [address] PCP - General 06/30/08 Niraj Winkler PA-C [address] [place], [place] [id number] Referring Cardiovascular Surgery 06/13/21 Dixon Valadez MD [address] [place], [place] [address] Home Care Provider Family Medicine 06/13/21 Kash Dueñas MD [address] [place] [address] Cardiology 07/14/21 Rajat العراقي Jr., MD [address] [place] [address] Urology 07/14/21 Akshat Shelton MD [address] [place] [address] Endocrinology 09/01/21 Lisa Rivera APRN.SUPPORT SERVICE TECH [address] [place] [address] Product Safety Consultant Family Medicine 03/23/24 Maxim Naik APRN.SUPPORT SERVICE TECH [address] [place] [address] Product Safety Consultant Family Medicine 04/01/24 Ambulance Assistant Relationship Specialty Start Date End Date Dixon Valadez MD [address] [place], [place] [address]371 PCP - General 06/30/08 Niraj Winkler PA-C [address] [place] [address] Referring Cardiovascular Surgery 06/13/21 Dixon Valadez MD [address] [place], [place] [id number] Home Care Provider Family Medicine 06/13/21 Kash Dueñas MD [address] [place] [address] Cardiology 07/14/21 Rajat العراقي Jr., MD [address] [place] [address] Urology 07/14/21 Akshat Shelton MD [address] [place] [address] Endocrinology 09/01/21 Lisa Rivera APRN.SUPPORT SERVICE TECH [address] [place] [address] Product Safety Consultant Family Medicine 03/23/24 08/27/24 Maxim Naik APRN.SUPPORT SERVICE TECH [address] [place] [address] Product Safety Consultant Family Medicine 04/01/24 Ambulance Assistant Relationship Specialty Start Date End Date Dixon Valadez MD [address] [place] [address] PCP - General 06/30/08 Niraj Winkler PA-C [address] [place] [address] Referring Cardiovascular Surgery 06/13/21 Dixon Valadez MD [address] [place] [address] Home Care Provider Family Medicine 06/13/21 Kash Dueñas MD [address] [place] [address] Cardiology 07/14/21 Rajat العراقي Jr., MD [address] [place] [address] Urology 07/14/21 Akshat Shelton MD [address] [place] [address] Endocrinology 09/01/21 Maxim Naik APRN.[facility] [address] [place] [address] Product Safety Consultant Family Medicine 04/01/24 Ambulance Assistant Relationship Specialty Start Date End Date Dixon Valadez MD [address] [place] [address] PCP - General 06/30/08 Niraj Winkler PA-C [address] [place] [address] Referring Cardiovascular Surgery 06/13/21 Dixon Valadez MD [address] [place] [address] Home Care Provider Family Medicine 06/13/21 Kash Dueñas MD [address] [place] [address] Cardiology 07/14/21 Rajat العراقي Jr., MD [address] [place] [address] Urology 07/14/21 Akshat Shelton MD [address] [place] [address] Endocrinology 09/01/21 Maxim Naik APRN.SUPPORT SERVICE TECH [address] [place], [place] [address] Product Safety Consultant Family Medicine 04/01/24 Ambulance Assistant Relationship Specialty Start Date End Date Dixon Valadez MD [address] [place], [place] [address]31 PCP - General 06/30/08 Niraj Winkler PA-C [address] [place] [address] Referring Cardiovascular Surgery 06/13/21 Dixon Valadez MD [address] [place], [place] [address]01 Home Care Provider Family Medicine 06/13/21 Kash Dueñas MD [address] [place] [address] Cardiology 07/14/21 Rajat العراقي Jr., MD [address] [place] [address] Urology 07/14/21 Akshat Shelton MD [address] [place], [place] [address]553 Endocrinology 09/01/21 Maxim Naik APRN.SUPPORT SERVICE TECH [address] [place], [place] [address] Product Safety Consultant Family Medicine 04/01/24 Ambulance Assistant Relationship Specialty Start Date End Date Dixon Valadez MD [address] [place], [place] [address]851 PCP - General 06/30/08 Niraj Winkler PA-C [address] [place], [place] [phone] Referring Cardiovascular Surgery 06/13/21 Dixon Valadez MD [address] [place], [place] 8[address]661 Home Care Provider Family Medicine 06/13/21 Kash Dueñas MD [address] [place] [address] Cardiology 07/14/21 Rajat العراقي Jr., MD [address] [place] [address] Urology 07/14/21 Akshat Shelton MD [address] [place] [address] Endocrinology 09/01/21 Maxim Naik APRN.SUPPORT SERVICE TECH [address] [place] [address] Product Safety Consultant Family Medicine 04/01/24 Ambulance Assistant Relationship Specialty Start Date End Date Dixon Valadez MD [address] [place], [place] [address]21 PCP - General 06/30/08 Niraj Winkler PA-C [address] [place], [place] [phone] Referring Cardiovascular Surgery 06/13/21 Dixon Valadez MD [address] [place], [place] [id number] Home Care Provider Family Medicine 06/13/21 Kash Dueñas MD [address] [place] [address] Cardiology 07/14/21 Rajat العراقي Jr., MD [address] [place] [address] Urology 07/14/21 [place] [address] [place] [address] Endocrinology 09/01/21 Maxim Naik APRN.SUPPORT SERVICE TECH [address] [place], [place] [id number] Product Safety Consultant Family Medicine 04/01/24 Team Status: Active Member Role/Relationship Status Dates Dr. Dixon Valadez MD Primary Care Provider Active Team Status: Inactive Member Role/Relationship Status Dates Dr. Dixon Valadez MD Primary Care Provider Active Start: December 26, 2024 End: December 26, 2024 Dr. Jose Plascencia MD Attending Provider Active Start: December 26, 2024 End: December 26, 2024 Team Status: Active Member Role/Relationship Status Dates Dr. Dixon Valadez MD Primary Care Provider Active Start: December 29, 2024 Dr. Zoya Rodriguez MD Emergency Provider Active S tart: December 29, 2024 Dr. Hailee Hull MD Admit Provider Active Star t: December 29, 2024 Dr. Hailee Hull MD Attending Provider Active Start: December 29, 2024 Dr. Hailee Hull MD Other Provider Active Star t: December 29, 2024 Goals (unrecognized section and content) Goals may be documented in a n alternate sectionGoals may be documented in an alternate sectionGoals may be documented in an alternate sectionGoals may be documented in an alternate sectionGoals may be documented in an alternate sectionGoals may be documented in an alternate sectionGoals may be documented in an alternate sectionGoals may be documented in an alternate sectionGoals may be documented in an alternate sectionGoals may be documented in an alternate sectionGoals may be documented in an alternate sectionGoals may be documented in an alternate sectionGoals may be documented in an alternate sectionGoals may be documented in an alternate sectionGoals may be documented in an alternate section FOR RECORDS PERTAINING TO PATIENTS WHO ARE OR HAVE BEEN ENROLLED IN A CHEMICAL DEPENDENCY/SUBSTANCEABUSE PROGRAM, SOME INFORMATION MAY BE OMITTED. This clinical summary was aggregated from multiple sources. Caution should be exercised in using it in the provision of clinical care. This summary normalizes information from multiple sources, and as a consequence, information in this document may materially change the coding, format and clinical context of patient data. In addition, data may be omitted in some cases. CLINICAL DECISIONS SHOULD BE BASED ON THE PRIMARY CLINICAL RECORDS. [facility]. provides no warranty or guarantee of the accuracy or completeness of information in this document.
[2024-12-30 07:12] LABS: Hematocrit 36.1 % (40-54); Hemoglobin 12.0 g/dL (13.0-16.5); Immature Granulocytes Count 0.020 X10^3/uL (0.0-0.0); Mean Corp Hgb Conc 33.2 g/dL (32-36); Mean Corpuscular Volume 88.3 fL (80-94); Mean Platelet Vol. 9.7 fl (6.2-12.0); NRBC Flagged by Analyzer 0 % (0-5); Platelet Count 168 K/mm3 (150-450); RBC Distribution Width CV 12.8 % (11.6-14.6); RBC Distribution Width SD 41.3 fl (35.1-43.9); Red Blood Count 4.09 M/mm3 (4.6-6.2); White Blood Count 6.0 K/mm3 (4.4-11.0)
[2024-12-30 07:45] LABS: Anion Gap 12 (5-15); BUN 17 mg/dL (4-19); BUN/Creat Ratio 25.1 RATIO (10-20); Calcium,Total 8.5 mg/dL (7.6-11.0); Carbon Dioxide 21.4 mmol/L (21.0-32.0); Chloride 105 mmol/L (98-108); Estimated Creatinine Clearance 96.82 ml/min (50-250); Glucose 88 mg/dL (70-99); Potassium 3.6 mmol/L (3.3-5.1)
--- NOTE | 2024-12-30 08:07 | PN.HOSP_ITS ---
Reason for Visit Chief Complaint: 30 syncopal episodes Objective Data Objective Data Vital Signs: Vital Signs Temp Pulse Resp BP Pulse Ox O2 Del Method 98.9 F 78 16 125/80 H 97 Room Air 12/30/24 02:03 12/30/24 02:03 12/30/24 02:03 12/30/24 02:03 12/30/24 02:03 12/30/24 02:30 Oxygen Delivery Method Room Air Weight: 105.2 kg Body Mass Index (BMI) 34.2 Lab / Micro Data 12/30/24 06:16 12/30/24 06:16 Labs: Laboratory Results - last 24 hr 12/29/24 14:31: WBC 8.4, RBC 4.64, Hgb 13.7, Hct 41.0, MCV 88.4, MCH 29.5, MCHC 33.4, RDW Std Deviation 41.1, RDW Coeff of Khoa 12.7, Plt Count 189, MPV 9.9, Immature Gran % (Auto) 0.400, Neut % (Auto) 86.0 H, Lymph % (Auto) 7.8 L, [place] % (Auto) 4.8, Eos % (Auto) 0.6, Baso % (Auto) 0.4, Absolute Neuts (auto) 7.2, A bsolute Lymphs (auto) 0.66 L, Nucleated RBC % 0, PT 13.7, INR 1.0, APTT 26.1, Sodium 141, Potassium 4.3, Chloride 106, Carbon Dioxide 20.8 L, Anion Gap 14, B UN 21 H, Creatinine 0.84, Estim Creat Clear Calc 92.56, Est GFR (MDRD) Non-Af 92, BUN/Creatinine Ratio 25.1 H, Glucose 112 H, Calcium 9.3, Magnesium 2.0, T roponin T High Sens 58 H*, TSH 1.490 12/29/24 16:32: Troponin T Hi Sens 2 Hr 57 H* 12/29/24 18:12: POC Glucose 87 12/29/24 18:46: Troponin T Hi Sens 4Hr 54 H* 12/29/24 23:15: POC Glucose 93 12/30/24 06:16: WBC 6.0, RBC 4.09 L, Hgb 12.0 L, Hct 36.1 L, MCV 88.3, MCH 29.3, MCHC 33.2, RDW Std Deviation 41.3, RDW Coeff of [place]ho[place] 12.8, Plt Count 168, MPV 9.7, Immature Gran % (Auto) 0.300, Neut % (Auto) 74.3 H, Lymph % (Auto) 15.4 L, Leslie % (Auto) 8.5, Eos % (Auto) 1.3, Baso % (Auto) 0.2, Absolute Neuts (auto) 4.4, Absolute Lymphs (auto) 0.92, Nucleated RBC % 0, Sodium 139, Potassium 3.6, Chloride 105, Carbon Dioxide 21.4, Anion Gap 12, BUN 17, Creatinine 0.69 L, Estim Creat Clear Calc 96.82, Est GFR (MDRD) Non-Af 97, BUN/Creatinine Ratio 25.1 H, Glucose 88, Calcium 8.5, TSH 1.200 12/30/24 06:28: POC Glucose 82 Radiography Diagnostic Testing: Radiology Impression Brain CT 12/29/24 14:25 IMPRESSION: CHRONIC CHANGES. NO ACUTE FINDINGS. Reading Location: [facility] 12/29/24 14:25 IMPRESSION: No acute injury to the cervical spine. Reading Location: [facility] Chest X-Ray 12/29/24 14:55 IMPRESSION: Mild cardiac enlargement. Reading Location: [facility] Rhythm Strip Rhythm Strip: Sinus Rhythm Rate: 80 Physical Exam Narrative General: Alert, oriented, no apparent distress HEENT: Atraumatic, normocephalic Eyes: Anicteric, normal conjunctiva, extraocular movements grossly intact Neck: Supple Respiratory: Clear to auscultation bilaterally, normal respiratory effort Cardiovascular: Regular rate and rhythm, does have systolic ejection murmur at upper sternal borders GI: Soft, nontender, nondistended Extremities: No edema Musculoskeletal: Moving all extremities Neuro: No overt focal neurological deficits Skin: No rashes appreciated Psych: Cooperative Assessment & Plan Assessment/Plan (1) Syncope: QUALIFIERS: Syncope type: unspecified Qualified Code(s): R55 - Syncope and collapse PLAN: Plan Patient is a 74-year-old gentleman admitted with multiple syncopal episodes 1. Syncopal episode ? Tach to be secondary to cardiac syncope. Patient has been admitted to a monitored bed for continuous telemetry monitoring consult placed to cardiology 2D echo ordered in addition to serial cardiac enzymes 2. Elevated troponin ? Patient did not have any chest pain shortness of breath except for a syncopal episode. Serial cardiac enzymes ordered cardiology on board 3. Coronary artery disease with previous CABG at [facility] 3 years prior. Patient remains on guideline directed medical therapy 4. Diabetes mellitus type II -patient's oral hypoglycemics held. Placed on long acting insulin, Accu-Cheks a.c. and at bedtime and covered with sliding scale insulin 5. Essential hypertension ? Patient blood pressure was low on admission 98/79 patient is on metoprolol and lisinopril held 6. Dyslipidemia ?Patient is on statin therapy, continued at home dose 7. DVT prophylaxis ? On enoxaparin Charges/Coding Visit Charges Inpatient E&M: 88147 Subs Hosp L2
[2024-12-30] MEDS: Aspirin E.C. 81 MG Tablet PO (08:42)
--- NOTE | 2024-12-30 09:01 | PN.CARD_ITS ---
Subjective Subjective Patient denies any syncope or near syncope since admission. Denies any palpitations. The telemetry shows no significant arrhythmias he has been in normal sinus rhythm with no ectopy heart rate is in the 70 bpm range. Echocardiogram is pending to reevaluate his aortic stenosis. Objective Data Vital Signs: Vital Signs Temp Pulse Resp BP Pulse Ox O2 Del Method 98.0 F 80 18 128/81 H 97 Room Air 12/30/24 08:27 12/30/24 08:42 12/30/24 08:27 12/30/24 08:27 12/30/24 08:27 12/30/24 08:31 Oxygen Delivery Method Room Air Weight: 231 lb 14.821 oz Body Mass Index (BMI) 34.2 Lab / Micro Data Attestation: I reviewed the patient's lab results. 12/30/24 06:16 12/30/24 06:16 Labs: Laboratory Results - last 24 hr 12/29/24 14:31: WBC 8.4, RBC 4.64, Hgb 13.7, Hct 41.0, MCV 88.4, MCH 29.5, MCHC 33.4, RDW Std Deviation 41.1, RDW Coeff of Khoa 12.7, Plt Count 189, MPV 9.9, Immature Gran % (Auto) 0.400, Neut % (Auto) 86.0 H, Lymph % (Auto) 7.8 L, [place] % (Auto) 4.8, Eos % (Auto) 0.6, Baso % (Auto) 0.4, Absolute Neuts (auto) 7.2, A bsolute Lymphs (auto) 0.66 L, Nucleated RBC % 0, PT 13.7, INR 1.0, APTT 26.1, Sodium 141, Potassium 4.3, Chloride 106, Carbon Dioxide 20.8 L, Anion Gap 14, B UN 21 H, Creatinine 0.84, Estim Creat Clear Calc 92.56, Est GFR (MDRD) Non-Af 92, BUN/Creatinine Ratio 25.1 H, Glucose 112 H, Calcium 9.3, Magnesium 2.0, T roponin T High Sens 58 H*, TSH 1.490 12/29/24 16:32: Troponin T Hi Sens 2 Hr 57 H* 12/29/24 18:12: POC Glucose 87 12/29/24 18:46: Troponin T Hi Sens 4Hr 54 H* 12/29/24 23:15: POC Glucose 93 12/30/24 06:16: WBC 6.0, RBC 4.09 L, Hgb 12.0 L, Hct 36.1 L, MCV 88.3, MCH 29.3, MCHC 33.2, RDW Std Deviation 41.3, RDW Coeff of Khoa 12.8, Plt Count 168, MPV 9.7, Immature Gran % (Auto) 0.300, Neut % (Auto) 74.3 H, Lymph % (Auto) 15.4 L, [place] % (Auto) 8.5, Eos % (Auto) 1.3, Baso % (Auto) 0.2, Absolute Neuts (auto) 4.4, Absolute Lymphs (auto) 0.92, Nucleated RBC % 0, Sodium 139, Potassium 3.6, Chloride 105, Carbon Dioxide 21.4, Anion Gap 12, BUN 17, Creatinine 0.69 L, Estim Creat Clear Calc 96.82, Est GFR (MDRD) Non-Af 97, BUN/Creatinine Ratio 25.1 H, Glucose 88, Calcium 8.5, TSH 1.200 12/30/24 06:28: POC Glucose 82 Rhythm Strip Rhythm Strip: Sinus Rhythm Rate: 75 Ectopy: None Cardiology Labs/Tests 12/29/24 14:31: WBC 8.4, RBC 4.64, Hgb 13.7, Hct 41.0, MCV 88.4, MCH 29.5, MCHC 33.4, Plt Count 189, MPV 9.9, Immature Gran % (Auto) 0.400, Neut % (Auto) 86.0 H , Lymph % (Auto) 7.8 L, [place] % (Auto) 4.8, Eos % (Auto) 0.6, Baso % (Auto) 0.4, Absolute Neuts (auto) 7.2, Nucleated RBC % 0, PT 13.7, INR 1.0, APTT 26.1, Sodium 141, Potassium 4.3, Chloride 106, Carbon Dioxide 20.8 L, Anion Gap 14, B UN 21 H, Creatinine 0.84, Est GFR (MDRD) Non-Af 92, BUN/Creatinine Ratio 25.1 H, Glucose 112 H, Calcium 9.3, Magnesium 2.0 12/30/24 06:16: WBC 6.0, RBC 4.09 L, Hgb 12.0 L, Hct 36.1 L, MCV 88.3, MCH 29.3, MCHC 33.2, Plt Count 168, MPV 9.7, Immature Gran % (Auto) 0.300, Neut % (Auto) 74.3 H, Lymph % (Auto) 15.4 L, [place] % (Auto) 8.5, Eos % (Auto) 1.3, Baso % (Auto) 0.2, Absolute Neuts (auto) 4.4, Nucleated RBC % 0, Sodium 139, Potassium 3.6, Chloride 105, Carbon Dioxide 21.4, Anion Gap 12, BUN 17, Creatinine 0.69 L, Est GFR (MDRD) Non-Af 97, BUN/Creatinine Ratio 25.1 H, Glucose 88, Calcium 8.5 Rhythm: EKG: ECHO: Stress Test: Cardiac Cath: PCI: CT Surgery: Holter monitor: EPS: PPM: CXR: Chest CT Scan: Radiography Diagnostic Testing: Radiology Impression Brain CT 12/29/24 14:25 IMPRESSION: CHRONIC CHANGES. NO ACUTE FINDINGS. [facility] 12/29/24 14:25 IMPRESSION: No acute injury to the cervical spine. Reading Location: [facility] Chest X-Ray 12/29/24 14:55 IMPRESSION: Mild cardiac enlargement. Reading Location: [facility] Physical Exam Const alert and oriented x3 HEENT normocephalic Eyes EOMs intact bilaterally Neck no JVD Neck Narrative: Murmur radiated to the neck. Chest inspection of chest normal Chest: midline sternotomy incision Resp normal respiratory effort and clear to auscultation bilaterally Cardio Rate: regular rate Rhythm: regular rhythm Heart Sounds: S1 normal, S2 normal and murmur systolic III/ harsh holo left sternal border to the neck; Negative for click or gallop Extremity no pedal edema Neuro Neuro Narrative: Alert and oriented x 3 Psych mental status grossly normal Assessment & Plan Assessment/Plan (1) Syncope: QUALIFIERS: Syncope type: unspecified Qualified Code(s): R55 - Syncope and collapse PLAN: Patient's had no recurrence of his symptoms of syncope or near syncope since admission. Telemetry has shown normal sinus rhythm with no ectopy. Blood pressure remained stable. 2D echocardiogram is pending to reevaluate LV function and aortic valve disease. (2) Hypertension: QUALIFIERS: Hypertension type: primary hypertension Qualified Code(s): I10 - Essential (primary) hypertension PLAN: Blood pressure is well-controlled at this point in time. He remains normotensive. (3) Aortic valve stenosis: QUALIFIERS: Cardiac valve disease etiology: nonrheumatic Q ualified Code(s): I35.0 - Nonrheumatic aortic (valve) stenosis PLAN: Patient has a history of aortic valve stenosis with a peak gradient of 36 mean gradient of 23 a little over a year ago. Repeat echocardiogram is pending. (4) Coronary artery disease: QUALIFIERS: Coronary Disease-Associated Artery/Lesion type: [place] artery [place] vs. transplanted heart: [place] heart Associated angina: without angina Qualified Code(s): I25.10 - Atherosclerotic heart disease of [place] coronary artery without angina pectoris PLAN: Patient has known coronary disease status post an inferior wall presumed infarct by all stress testing and echo criteria. He received bypass graft surgery at [facility] in 2021. PLAN: Plan 1. 2D echocardiogram to evaluate aortic valve disease and LV function. 2. Further recommendations and treatment options pending results of the echocardiogram. 3. Continue to monitor on telemetry for another 24 hours. 4. Have the patient up and ambulating in the halls. 5. I will discuss the findings and recommendations with the patient's daughter who is an RN at [facility] and the cardiovascular services. Charges/Coding Visit Charges Inpatient E&M: 45025 Subs Hosp L2
--- NOTE | 2024-12-30 16:51 | STEWCON_ITS ---
Reason For Study Reason For Study: SYNCOPE Stress Results Protocol: Killian Protocol WITH DEFINITY Maximum Predicted HR: 146 bpm Target HR: 124 bpm % Maximum Predicted HR: 90 % DurationHeart Rate Stage (mm:ss) (bpm) BP Comment BASELINE 78 132/884 CC DEFINITY STAGE 1 3:00 129 170/90 STAGE 2 1:36 131 / DIZZY, LIGHTHEADED, HEART RATE DROPPED RECOVERY 86 146/92 Stress Duration: 4:36 mm:ss Maximum Stress HR: 131 bpm Baseline Echocardiogram Findings Stress Echo Wall motion Data Resting WM Intermediate WM Stress WM ECHO/Stress Test Echo W/Contrast Interpretation Summary Exercise stress echocardiogram. Syncope. Resting EKG demonstrates normal sinus rhythm with a rate of 90 bpm no acute renetta nges noted. The patient exercised according to regular Killian protocol for total duration of 4 minutes and 36 seco nds. Patient maintained sinus rhythm after approximately 4 minutes with a heart rate was approximate 131 bpm. At nemesio t time the patient appeared to develop a widened QRS rhythm with 2-1 heart block present. This continued throughout ana very with a left bundle branch block pattern. Approximately 2-1/2 minutes into recovery the patient appeared to rega in sinus rhythm with a narrow QRS rhythm. There were no ST or T wave changes noted to suggest ischemia no clinical angina was noted that the patient complained of dizziness and lightheaded. The maximum heart rate was 141 bpm which was 96% of maximum pressure heart rate. Stress echocardiogram. The resting echocardiogram demonstrated ejection fractio n approximately 50% with inferior posterior hypokinesis present at rest and during exercise there is mild improve ment in ejection fraction estimated at 55% with continued inferoposterior hypokinesis present. During exercise there a ppeared to be worsening of the hypokinesis noted in the inferior posterior wall and ischemia in this distribut ion cannot be completely excluded. Conclusion: Exercise stress echocardiogram with 2-1 AV block noted during peak exercise wit h symptoms and hypokinesis of the inferior posterior wall. Ordering Physician: Phoenix Raza Referring Physician: LAZARO Performed By: Sundar Mckeon RCS
[2024-12-31 05:51] LABS: Anion Gap 13 (5-15); BUN 17 mg/dL (4-19); BUN/Creat Ratio 25.1 RATIO (10-20); Calcium,Total 8.6 mg/dL (7.6-11.0); Carbon Dioxide 21.3 mmol/L (21.0-32.0); Chloride 106 mmol/L (98-108); Estimated Creatinine Clearance 96.82 ml/min (50-250); Glucose 107 mg/dL (70-99); Magnesium 2.1 mg/dL (1.5-2.2); Potassium 3.7 mmol/L (3.3-5.1)
--- NOTE | 2024-12-31 05:55 | EKG12_ITS ---
Test Reason : STRESS ECHO Blood Pressure : */* mmHG Vent. Rate : 79 BPM Atrial Rate : 79 BPM P-R Int : 176 ms QRS Dur : 96 ms QT Int : 396 ms P-R-T Axes : 43 28 97 degrees QTcB Int : 454 ms Normal sinus rhythm Possible Left atrial enlargement Septal infarct (cited on or before 31-May-2021) Inferior infarct (cited on or before 29-Dec-2024) Abnormal ECG When compared with ECG of 29-Dec-2024 14:22, Inverted T waves have replaced nonspecific T wave abnormality in Lateral leads Confirmed by JESSICA LUCERO, AMMY ([id number]), manager editorial [employer] ([id number]) on 12/31/2024 1:52:23 PM Referred By: Confirmed By: AMMY LOPEZ MD
[2024-12-31 06:00] VITALS: BP 120/79; PULSE 83; RESP 16; TEMP 36.5; O2SAT 100
[2024-12-31] MEDS: Aspirin E.C. 81 MG Tablet PO (06:00)
--- NOTE | 2024-12-31 06:57 | PCM.PN.HOSP ---
Reason for Visit Chief Complaint: 30 syncopal episodes Subjective Subjective Patient seen no significant arrhythmia overnight. Patient underwent nuclear stress test as part of his evaluation. Results pending Objective Data Objective Data Vital Signs: Vital Signs Temp Pulse Resp BP Pulse Ox O2 Del Method 97.7 F L 83 16 120/79 100 Room Air 12/31/24 06:00 12/31/24 06:00 12/31/24 06:00 12/31/24 06:00 12/31/24 06:00 12/31/24 06:00 Oxygen Delivery Method Room Air Weight: 105.2 kg Body Mass Index (BMI) 34.2 Intake & Output: Intake and Output for Last 24 Hours 12/29/24 12/30/24 12/31/24 23:59 23:59 23:59 Intake Total 400 / 400 Balance 400 / 400 Lab / Micro Data 12/30/24 06:16 12/31/24 04:49 Labs: Laboratory Results - last 24 hr 12/30/24 06:16: WBC 6.0, RBC 4.09 L, Hgb 12.0 L, Hct 36.1 L, MCV 88.3, MCH 29.3, MCHC 33.2, RDW Std Deviation 41.3, RDW Coeff of Khoa 12.8, Plt Count 168, MPV 9.7, Immature Gran % (Auto) 0.300, Neut % (Auto) 74.3 H, Lymph % (Auto) 15.4 L, [place] % (Auto) 8.5, Eos % (Auto) 1.3, Baso % (Auto) 0.2, Absolute Neuts (auto) 4.4, Absolute Lymphs (auto) 0.92, Nucleated RBC % 0, Sodium 139, Potassium 3.6, Chloride 105, Carbon Dioxide 21.4, Anion Gap 12, BUN 17, Creatinine 0.69 L, Estim Creat Clear Calc 96.82, Est GFR (MDRD) Non-Af 97, BUN/Creatinine Ratio 25.1 H, Glucose 88, Calcium 8.5, TSH 1.200 12/30/24 10:43: POC Glucose 118 H 12/30/24 16:00: POC Glucose 104 12/31/24 04:49: Sodium 140, Potassium 3.7, Chloride 106, Carbon Dioxide 21.3, Anion Gap 13, BUN 17, Creatinine 0.66 L, Estim Creat Clear Calc 96.82, Est GFR (MDRD) Non-Af 98, BUN/Creatinine Ratio 25.1 H, Glucose 107 H, Calcium 8.6, Phosphorus 4.2, Magnesium 2.1 12/31/24 06:03: POC Glucose 97 Radiography Diagnostic Testing: Radiology Impression Echocardiogram 12/29/24 16:40 Interpretation Summary The study was technically difficult. Mild concentric left ventricular hypertrophy. Inferior and posterior hypokinesis. Overall LVEF estimated at 50%. Stage I diastolic dysfunction. The left atrium is severely enlarged. Severe mitral valve annular calcification. Mild mitral valve regurgitation. Mild aortic valve calcification. Moderate aortic valve stenosis with mean peak gradient 23 mmHg. Mild aortic valve regurgitation. Mildly dilated aortic root. Ordering Physician: Hailee Hull Performed By: Sundar Mckeon RCS Rhythm Strip Rhythm Strip: Sinus Rhythm Rate: 75 Ectopy: None Physical Exam Narrative GENERAL: cooperative HEENT: Atraumatic; normocephalic EYES; Anicteric, Normal Conjunctiva NECK; supple, normal thyroid, RESPIRATORY: Diminished to auscultation CARDIOVASCULAR: Regular S1 S2, with a loud systolic murmur GI: soft, normoactive bowel sounds, : No Renal angle tenderness; EXTREMITIES: No edema, no clubbing, MUSCULOSKELETAL: no muscle wasting NEURO: Awake; no lateralizing signs. SKIN: No Rash PSYCH; Flat affect Assessment & Plan Assessment/Plan (1) Syncope: QUALIFIERS: Syncope type: unspecified Qualified Code(s): R55 - Syncope and collapse PLAN: Plan Patient is a 74-year-old gentleman admitted with multiple syncopal episodes 1. Syncopal episode ? Tach to be secondary to cardiac syncope. Patient has been admitted to a monitored bed for continuous telemetry monitoring consult placed to cardiology 2D echo ordered in addition to serial cardiac enzymes ? 12/31/2024 patient seen no significant arrhythmia overnight. Patient underwent nuclear stress test as part of his evaluation. Results pending. 2D echo obtained the day prior results as below Mild concentric left ventricular hypertrophy. Inferior and posterior hypokinesis. Overall LVEF estimated at 50%. Stage I diastolic dysfunction. The left atrium is severely enlarged. Severe mitral valve annular calcification. Mild mitral valve regurgitation. Mild aortic valve calcification. Moderate aortic valve stenosis with mean peak gradient 23 mmHg. Mild aortic valve regurgitation. Mildly dilated aortic root. 2. Elevated troponin ? Patient did not have any chest pain shortness of breath except for a syncopal episode. Serial cardiac enzymes ordered cardiology on board 3. Coronary artery disease with previous CABG at [facility] 3 years prior. Patient remains on guideline directed medical therapy 4. Valvular heart disease ? 2D echo demonstrated moderate aortic valve stenosis with mean peak gradient of 23 mmHg 5. Diabetes mellitus type II -patient's oral hypoglycemics held. Placed on long acting insulin, Accu-Cheks a.c. and at bedtime and covered with sliding scale insulin 6. Essential hypertension ? Patient blood pressure was low on admission 98/79 patient is on metoprolol and lisinopril held 7. Dyslipidemia ?Patient is on statin therapy, continued at home dose 8. DVT prophylaxis ? On enoxaparin Time spent in the patient's overall evaluation,decision-making process, review of diagnostic data, adjustment of management, discussion with other providers, nursing nursing and ancillary staff involved in patient's care documentation, 38 Minutes Charges/Coding Visit Charges Inpatient E&M: 83854 Subs Hosp L2
[2024-12-31] MEDS: 0.9% Saline Lock 10 ML Syringe IV (07:27)
[2024-12-31 09:38] VITALS: BP 127/78; PULSE 92; RESP 17; TEMP 36.4; O2SAT 98
[2024-12-31 09:40] VITALS: PULSE 92
--- NOTE | 2024-12-31 13:04 | PN.CARD_ITS ---
Subjective Subjective Patient seen and evaluated. Underwent stress echo this morning. Objective Data Vital Signs: Vital Signs Temp Pulse Resp BP Pulse Ox O2 Del Method 97.6 F L 92 17 127/78 H 98 Room Air 12/31/24 09:38 12/31/24 09:40 12/31/24 09:38 12/31/24 09:38 12/31/24 09:38 12/31/24 09:38 Oxygen Delivery Method Room Air Weight: 231 lb 14.821 oz Body Mass Index (BMI) 34.2 Intake & Output: Intake and Output for Last 24 Hours 12/29/24 12/30/24 12/31/24 23:59 23:59 23:59 Intake Total 400 / 400 Balance 400 / 400 Lab / Micro Data 12/30/24 06:16 12/31/24 04:49 Labs: Laboratory Results - last 24 hr 12/30/24 16:00: POC Glucose 104 12/31/24 04:49: Sodium 140, Potassium 3.7, Chloride 106, Carbon Dioxide 21.3, Anion Gap 13, BUN 17, Creatinine 0.66 L, Estim Creat Clear Calc 96.82, Est GFR (MDRD) Non-Af 98, BUN/Creatinine Ratio 25.1 H, Glucose 107 H, Calcium 8.6, Phosphorus 4.2, Magnesium 2.1 12/31/24 06:03: POC Glucose 97 12/31/24 11:06: POC Glucose 128 H Rhythm Strip Rhythm Strip: Sinus Rhythm Rate: 75 Ectopy: None Cardiology Labs/Tests 12/31/24 04:49: Sodium 140, Potassium 3.7, Chloride 106, Carbon Dioxide 21.3, Anion Gap 13, BUN 17, Creatinine 0.66 L, Est GFR (MDRD) Non-Af 98, B UN/Creatinine Ratio 25.1 H, Glucose 107 H, Calcium 8.6, Phosphorus 4.2, Magnesium 2.1 Rhythm: EKG: ECHO: Stress Test: Cardiac Cath: PCI: CT Surgery: Holter monitor: EPS: PPM: CXR: Chest CT Scan: Radiography Diagnostic Testing: Radiology Impression Stress Echocardiogram 12/30/24 16:51 Interpretation Summary Exercise stress echocardiogram. Syncope. Resting EKG demonstrates normal sinus rhythm with a rate of 90 bpm no acute changes noted. The patient exercised according to regular Killian protocol for total duration of 4 minutes and 36 seconds. Patient maintained sinus rhythm after approximately 4 minutes with a heart rate was approximate 131 bpm. At that time the patient appeared to develop a widened QRS rhythm with 2-1 heart block present. This continued throughout recovery with a left bundle branch block pattern. Approximately 2-1/2 minutes into recovery the patient appeared to regain sinus rhythm with a narrow QRS rhythm. There were no ST or T wave changes noted to suggest ischemia no clinical angina was noted that the patient complained of dizziness and lightheaded. The maximum heart rate was 141 bpm which was 96% of maximum pressure heart rate. Stress echocardiogram. The resting echocardiogram demonstrated ejection fraction approximately 50% with inferior posterior hypokinesis present at rest and during exercise there is mild improvement in ejection fraction estimated at 55% with continued inferoposterior hypokinesis present. During exercise there appeared to be worsening of the hypokinesis noted in the inferior posterior wall and ischemia in this distribution cannot be completely excluded. Conclusion: Exercise stress echocardiogram with 2-1 AV block noted during peak exercise with symptoms and hypokinesis of the inferior posterior wall. Ordering Physician: Phoenix Raza Referring Physician: LAZARO Performed By: Sundar Mckeon RCS Physical Exam Const alert and oriented x3 HEENT normocephalic Eyes EOMs intact bilaterally Neck no JVD Neck Narrative: Murmur radiated to the neck. Chest inspection of chest normal Chest: midline sternotomy incision Resp normal respiratory effort and clear to auscultation bilaterally Cardio Rate: regular rate Rhythm: regular rhythm Heart Sounds: S1 normal, S2 normal and murmur systolic III/ harsh holo left sternal border to the neck; Negative for click or gallop Extremity no pedal edema Neuro Neuro Narrative: Alert and oriented x 3 Psych mental status grossly normal Assessment & Plan Assessment/Plan (1) Syncope: QUALIFIERS: Syncope type: unspecified Qualified Code(s): R55 - Syncope and collapse PLAN: Patient's had no recurrence of his symptoms of syncope or near syncope since admission. Telemetry has shown normal sinus rhythm with no ectopy. Blood pressure remained stable. His stress echo demonstrated intermittent 2-1 AV block and I think on the basis of the above we should consider permanent pacemaker implantation. Risk benefits alternatives have been explained to him he understands and agrees to proceed. (2) Hypertension: QUALIFIERS: Hypertension type: primary hypertension Qualified Code(s): I10 - Essential (primary) hypertension PLAN: Blood pressure is well-controlled at this point in time. He remains normotensive. (3) Aortic valve stenosis: QUALIFIERS: Cardiac valve disease etiology: nonrheumatic Q ualified Code(s): I35.0 - Nonrheumatic aortic (valve) stenosis PLAN: Patient has a history of aortic valve stenosis with a peak gradient of 36 mean gradient of 23 a little over a year ago. Echocardiogram still demonstrates moderate aortic stenosis. I do not think that this is responsible for his symptoms. (4) Coronary artery disease: QUALIFIERS: Coronary Disease-Associated Artery/Lesion type: [place] artery [place] vs. transplanted heart: [place] heart Associated angina: without angina Qualified Code(s): I25.10 - Atherosclerotic heart disease of [place] coronary artery without angina pectoris PLAN: Patient has known coronary disease status post an inferior wall presumed infarct by all stress testing and echo criteria. He received bypass graft surgery at [facility] in 2021. His stress test did demonstrate possible mild ischemia in the inferior posterior region. This can be evaluated with coronary angiography after the pacemaker is placed.
[2024-12-31 14:27] LABS: Hematocrit 37.4 % (40-54); Hemoglobin 12.6 g/dL (13.0-16.5); Immature Granulocytes Count 0.020 X10^3/uL (0.0-0.0); Mean Corp Hgb Conc 33.7 g/dL (32-36); Mean Corpuscular Volume 88.0 fL (80-94); Mean Platelet Vol. 10.0 fl (6.2-12.0); NRBC Flagged by Analyzer 0 % (0-5); Platelet Count 167 K/mm3 (150-450); RBC Distribution Width CV 12.9 % (11.6-14.6); RBC Distribution Width SD 41.1 fl (35.1-43.9); Red Blood Count 4.25 M/mm3 (4.6-6.2); White Blood Count 5.9 K/mm3 (4.4-11.0)
[2024-12-31 15:33] VITALS: BP 133/74; PULSE 84; RESP 17; TEMP 36.5; O2SAT 97
[2024-12-31 20:27] LABS: Magnesium 2.3 mg/dL (1.5-2.2); Potassium 3.5 mmol/L (3.3-5.1)
[2024-12-31 21:35] VITALS: PULSE 83
[2024-12-31 21:44] VITALS: BP 148/81; PULSE 83; RESP 17; TEMP 36.7; O2SAT 99
[2025-01-01] VITALS (14 sets, daily range): BP systolic 134–154; BP diastolic 65–91; PULSE 74–91; RESP 16–27; TEMP 36.2–36.6; O2SAT 31–98
[2025-01-01 05:06] LABS: Hematocrit 37.5 % (40-54); Hemoglobin 12.6 g/dL (13.0-16.5); Immature Granulocytes Count 0.040 X10^3/uL (0.0-0.0); Mean Corp Hgb Conc 33.6 g/dL (32-36); Mean Corpuscular Volume 88.2 fL (80-94); Mean Platelet Vol. 9.5 fl (6.2-12.0); NRBC Flagged by Analyzer 0 % (0-5); Platelet Count 161 K/mm3 (150-450); RBC Distribution Width CV 13.0 % (11.6-14.6); RBC Distribution Width SD 41.5 fl (35.1-43.9); Red Blood Count 4.25 M/mm3 (4.6-6.2); White Blood Count 5.5 K/mm3 (4.4-11.0)
[2025-01-01 05:23] LABS: Anion Gap 13 (5-15); BUN 11 mg/dL (4-19); BUN/Creat Ratio 16.1 RATIO (10-20); Calcium,Total 8.9 mg/dL (7.6-11.0); Carbon Dioxide 21.3 mmol/L (21.0-32.0); Chloride 105 mmol/L (98-108); Estimated Creatinine Clearance 96.82 ml/min (50-250); Glucose 96 mg/dL (70-99); Potassium 3.6 mmol/L (3.3-5.1)
--- NOTE | 2025-01-01 05:55 | EKG12_ITS ---
Test Reason : PRE-OP/PACER PLACEMENT Blood Pressure : */* mmHG Vent. Rate : 84 BPM Atrial Rate : 84 BPM P-R Int : 172 ms QRS Dur : 96 ms QT Int : 396 ms P-R-T Axes : 39 33 106 degrees QTcB Int : 467 ms Normal sinus rhythm Possible Left atrial enlargement Left ventricular hypertrophy with repolarization abnormality ( Clarence product ) Possible Inferior infarct (cited on or before 29-Dec-2024) Anteroseptal infarct (cited on or before 31-May-2021) Abnormal ECG Confirmed by JESSICA LUCERO, AMMY ([id number]), photography editor JHOANA SCHULTZ ([id number]) on 01/02/2025 2:20:41 PM Referred By: TYRA Confirmed By: AMMY LOPEZ MD
--- NOTE | 2025-01-01 07:35 | PCM.PN.HOSP ---
Reason for Visit Chief Complaint: 30 syncopal episodes Objective Data Objective Data Vital Signs: Vital Signs Temp Pulse Resp BP Pulse Ox O2 Del Method 97.1 F L 80 18 144/70 H 98 Room Air 01/01/25 04:48 01/01/25 04:48 01/01/25 04:48 01/01/25 04:48 01/01/25 04:48 01/01/25 04:48 Oxygen Delivery Method Room Air Weight: 105.2 kg Body Mass Index (BMI) 34.2 Intake & Output: Intake and Output for Last 24 Hours 12/30/24 12/31/24 01/01/25 23:59 23:59 23:59 Intake Total 400 / 900 500 / 500 Balance 400 / 900 500 / 500 Lab / Micro Data 01/01/25 04:39 01/01/25 04:39 Labs: Laboratory Results - last 24 hr 12/31/24 04:49: WBC 5.9, RBC 4.25 L, Hgb 12.6 L, Hct 37.4 L, MCV 88.0, MCH 29.6, MCHC 33.7, RDW Std Deviation 41.1, RDW Coeff of Khoa 12.9, Plt Count 167, MPV 10.0, Immature Gran % (Auto) 0.300, Neut % (Auto) 77.2 H, Lymph % (Auto) 11.9 L, [place] % (Auto) 8.3, Eos % (Auto) 2.0, Baso % (Auto) 0.3, Absolute Neuts (auto) 4.5, Absolute Lymphs (auto) 0.70 L, Nucleated RBC % 0 12/31/24 11:06: POC Glucose 128 H 12/31/24 16:44: POC Glucose 74 12/31/24 19:21: Potassium 3.5, Magnesium 2.3 H 01/01/25 04:39: WBC 5.5, RBC 4.25 L, Hgb 12.6 L, Hct 37.5 L, MCV 88.2, MCH 29.6, MCHC 33.6, RDW Std Deviation 41.5, RDW Coeff of Khoa 13.0, Plt Count 161, MPV 9.5, Immature Gran % (Auto) 0.700, Neut % (Auto) 72.7 H, Lymph % (Auto) 13.4 L, [place] % (Auto) 10.2 H, Eos % (Auto) 2.5, Baso % (Auto) 0.5, Absolute Neuts (auto) 4.0, Absolute Lymphs (auto) 0.74 L, Nucleated RBC % 0, Sodium 139, Potassium 3.6, Chloride 105, Carbon Dioxide 21.3, Anion Gap 13, BUN 11, Creatinine 0.65 L, Estim Creat Clear Calc 96.82, Est GFR (MDRD) Non-Af 99, BUN/Creatinine Ratio 16.1, Glucose 96, Calcium 8.9 Radiography Diagnostic Testing: Radiology Impression Stress Echocardiogram 12/30/24 16:51 Interpretation Summary Exercise stress echocardiogram. Syncope. Resting EKG demonstrates normal sinus rhythm with a rate of 90 bpm no acute changes noted. The patient exercised according to regular Killian protocol for total duration of 4 minutes and 36 seconds. Patient maintained sinus rhythm after approximately 4 minutes with a heart rate was approximate 131 bpm. At that time the patient appeared to develop a widened QRS rhythm with 2-1 heart block present. This continued throughout recovery with a left bundle branch block pattern. Approximately 2-1/2 minutes into recovery the patient appeared to regain sinus rhythm with a narrow QRS rhythm. There were no ST or T wave changes noted to suggest ischemia no clinical angina was noted that the patient complained of dizziness and lightheaded. The maximum heart rate was 141 bpm which was 96% of maximum pressure heart rate. Stress echocardiogram. The resting echocardiogram demonstrated ejection fraction approximately 50% with inferior posterior hypokinesis present at rest and during exercise there is mild improvement in ejection fraction estimated at 55% with continued inferoposterior hypokinesis present. During exercise there appeared to be worsening of the hypokinesis noted in the inferior posterior wall and ischemia in this distribution cannot be completely excluded. Conclusion: Exercise stress echocardiogram with 2-1 AV block noted during peak exercise with symptoms and hypokinesis of the inferior posterior wall. Ordering Physician: Phoenix Raza Referring Physician: LAZARO Performed By: Sundar Mckeon RCS Rhythm Strip Rhythm Strip: Sinus Rhythm Rate: 75 Ectopy: None Physical Exam Narrative GENERAL: cooperative HEENT: Atraumatic; normocephalic EYES; Anicteric, Normal Conjunctiva NECK; supple, normal thyroid, RESPIRATORY: Diminished to auscultation CARDIOVASCULAR: Regular S1 S2, with a loud systolic murmur GI: soft, normoactive bowel sounds, : No Renal angle tenderness; EXTREMITIES: No edema, no clubbing, MUSCULOSKELETAL: no muscle wasting NEURO: Awake; no lateralizing signs. SKIN: No Rash PSYCH; Flat affect Assessment & Plan Assessment/Plan (1) Syncope: QUALIFIERS: Syncope type: unspecified Qualified Code(s): R55 - Syncope and collapse PLAN: Plan Patient is a 74-year-old gentleman admitted with multiple syncopal episodes 1. Syncopal episode ? Tach to be secondary to cardiac syncope. Patient has been admitted to a monitored bed for continuous telemetry monitoring consult placed to cardiology 2D echo ordered in addition to serial cardiac enzymes ? 12/31/2024 patient seen no significant arrhythmia overnight. Patient underwent nuclear stress test as part of his evaluation. Results pending. 2D echo obtained the day prior results as below Mild concentric left ventricular hypertrophy. Inferior and posterior hypokinesis. Overall LVEF estimated at 50%. Stage I diastolic dysfunction. The left atrium is severely enlarged. Severe mitral valve annular calcification. Mild mitral valve regurgitation. Mild aortic valve calcification. Moderate aortic valve stenosis with mean peak gradient 23 mmHg. Mild aortic valve regurgitation. Mildly dilated aortic root. ?01/01/2025 patient underwent stress echo on on 12/31/2024 findings included 2-1 AV block noted during the peak exercise with symptoms and hypokinesis of the inferior posterior wall. - Plan is for patient to undergo pacemaker placement and subsequently have his coronaries evaluated with a left heart catheterization 2. Elevated troponin ? Patient did not have any chest pain shortness of breath except for a syncopal episode. Serial cardiac enzymes ordered cardiology on board 3. Coronary artery disease with previous CABG at [facility] 3 years prior. Patient remains on guideline directed medical therapy 4. Valvular heart disease ? 2D echo demonstrated moderate aortic valve stenosis with mean peak gradient of 23 mmHg 5. Diabetes mellitus type II -patient's oral hypoglycemics held. Placed on long acting insulin, Accu-Cheks a.c. and at bedtime and covered with sliding scale insulin 6. Essential hypertension ? Patient blood pressure was low on admission 98/79 patient is on metoprolol and lisinopril held 7. Dyslipidemia ?Patient is on statin therapy, continued at home dose 8. DVT prophylaxis ? On enoxaparin Time spent in the patient's overall evaluation,decision-making process, review of diagnostic data, adjustment of management, discussion with other providers, nursing nursing and ancillary staff involved in patient's care documentation, 40 Minutes Charges/Coding Visit Charges Inpatient E&M: 20555 Subs Hosp L2
[2025-01-01] MEDS: Aspirin E.C. 81 MG Tablet PO (08:40)
--- NOTE | 2025-01-01 13:15 | CL.IE_ITS ---
Patient: FAYE VAUGHN Study Date: 01/01/2025 Performing: Anthony Lopez MD : 1950 Age: 74 Gender: male PROCEDURES PERFORMED [id number])INITIAL PACER INSERT+DUAL LEADS INDICATIONS Atrioventricular (AV) block Syncope PROCEDURE DETAILS The patient was brought to the Catheterization Lab in the postabsorptive nonsedated state. Informed consent was obtained prior to the procedure. Local anesthetic was given subcutaneously to the left subclavian region with Lidocaine 2%. Access was achieved and a guidewire was advanced into the left subclavian vein. Incision was made to the left upper chest. A peel-away sheath was inserted into the left subclavian vein. PPM ventricular lead was inserted / positioned to right ventricular apex. PPM ventricular lead testing performed. PPM ventricular lead testing performed. PPM atrial lead was inserted / positioned to the right atrial appendage. PPM atrial lead testing performed. The Ventricular PM lead sutured in place with 2-0 Silk. The Atrial lead sutured in place with 2-0 Silk. The Atrial lead sutured in place with 2-0 Silk. The Ventricular PM lead sutured in place with 2-0 Silk. Device pocket was irrigated with antibiotic. PPM generator was attached to the lead(s) and inserted into the pocket. Subcutaneous closure was completed with 3-0 Vicryl. Skin closure was completed with 4-0 Vicryl. Instrument, sponge, and needle counts were noted to be normal. The patient tolerated the procedure well. Estimated Blood Loss: 10 ml's IMPLANTED / EX-PLANTED DEVICES IMPLANTED DEVICE(S): PPM Ventricular lead - Stitchdown Toe Former: [employer] Naga/Bhat, Model # Tendril STS 2088 TC , Serial # [id number] PPM Atrial lead - Stitchdown Toe Former: [employer]/Bhat, Model # Tendril STS 2088 TC , Serial # [id number] DEVICE PARAMETERS ATRIAL LEAD PARAMETERS: P wave- 5 (mV) threshold- 1.5 (V) impedence- 440 (OHMS) VENTRICULAR LEAD PARAMETERS: R wave- 12 (mV) threshold- 0.5 (V) impedence- 980 (OHMS) 10V test, no diaphragmatic capture DEVICE PARAMETERS: Mode- DDDR Lower rate- 60 Upper rate- 130 CONCLUSIONS / RECOMMENDATIONS Device Conclusions: Successful implantation of a dual chamber pacemaker Device Recommendations: Follow up with Primary Care Physician PROCEDURE MEDICATIONS Fentanyl 50 mcg IV Versed 1 mg IV Versed 1 mg IV Versed 1 mg IV Versed 1 mg IV Oxygen: 2 L/min via nasal cannula Antibiotic given in appropriate timeframe. Clindamycin 900 mg IV 01/01/2025 11:54:05 Signed By Anthony Lopez MD On 01/01/2025 13:14:40 Anthony Lopez MD
[2025-01-02 02:59] VITALS: BP 141/77; PULSE 87; RESP 14; TEMP 36.9; O2SAT 94
[2025-01-02 05:54] LABS: Hematocrit 36.2 % (40-54); Hemoglobin 12.3 g/dL (13.0-16.5); Immature Granulocytes Count 0.030 X10^3/uL (0.0-0.0); Mean Corp Hgb Conc 34.0 g/dL (32-36); Mean Corpuscular Volume 87.4 fL (80-94); Mean Platelet Vol. 9.6 fl (6.2-12.0); NRBC Flagged by Analyzer 0 % (0-5); Platelet Count 161 K/mm3 (150-450); RBC Distribution Width CV 12.9 % (11.6-14.6); RBC Distribution Width SD 40.4 fl (35.1-43.9); Red Blood Count 4.14 M/mm3 (4.6-6.2); White Blood Count 6.3 K/mm3 (4.4-11.0)
--- NOTE | 2025-01-02 05:57 | RAD_ITS ---
PROCEDURE: CHEST PA AND LATERAL 01/02/2025 REASON FOR EXAM: POST PERMANANT ICD/PACEMAKER TECHNIQUE: Procedure Code: RADCXR Modality: DX Procedure: CHEST PA AND LATERAL COMPARISON: December 29, 2024 FINDINGS: The image is lordotic. Hardware: Interval placement of a left-sided dual lead pacemaker with leads over the right atrium and right ventricular apex. Heart: Mildly enlarged status post median sternotomy and CABG. Mediastinum: Aorta is atherosclerotic. Lungs: Clear. No pneumothorax or pleural effusion. Bones: Degenerative changes are identified within the thoracic spine. RAD/Chest PA and Lateral IMPRESSION: Left-sided pacemaker in place. No pneumothorax. Reading Location: [id number]
[2025-01-02 06:56] LABS: Anion Gap 12 (5-15); BUN 11 mg/dL (4-19); BUN/Creat Ratio 15.8 RATIO (10-20); Calcium,Total 8.7 mg/dL (7.6-11.0); Carbon Dioxide 22.1 mmol/L (21.0-32.0); Chloride 104 mmol/L (98-108); Estimated Creatinine Clearance 96.82 ml/min (50-250); Glucose 108 mg/dL (70-99); Potassium 4.0 mmol/L (3.3-5.1)
--- NOTE | 2025-01-02 07:27 | PCM.PN.HOSP ---
Reason for Visit Chief Complaint: 30 syncopal episodes Subjective Subjective Patient underwent pacemaker placement on 01/01/2025 Objective Data Objective Data Vital Signs: Vital Signs Temp Pulse Resp BP Pulse Ox O2 Del Method 98.5 F 87 14 141/77 H 94 Room Air 01/02/25 02:59 01/02/25 02:59 01/02/25 02:59 01/02/25 02:59 01/02/25 02:59 01/02/25 03:03 Oxygen Delivery Method Room Air Weight: 105.2 kg Body Mass Index (BMI) 34.2 Intake & Output: Intake and Output for Last 24 Hours 12/31/24 01/01/25 01/02/25 23:59 23:59 23:59 Intake Total 400 / 900 860 / 860 Output Total 300 / 300 Balance 400 / 900 860 / 860 -300 / -300 Lab / Micro Data 01/02/25 05:18 01/02/25 05:18 Labs: Laboratory Results - last 24 hr 01/01/25 11:32: POC Glucose 100 01/01/25 16:02: POC Glucose 211 H 01/02/25 05:18: WBC 6.3, RBC 4.14 L, Hgb 12.3 L, Hct 36.2 L, MCV 87.4, MCH 29.7, MCHC 34.0, RDW Std Deviation 40.4, RDW Coeff of Kho[place] 12.9, Plt Count 161, MPV 9.6, Immature Gran % (Auto) 0.500, Neut % (Auto) 76.1 H, Lymph % (Auto) 11.0 L, Orange % (Auto) 10.0, Eos % (Auto) 2.1, Baso % (Auto) 0.3, Absolute Neuts (auto) 4.8, Absolute Lymphs (auto) 0.69 L, Nucleated RBC % 0, Sodium 139, Potassium 4.0, Chloride 104, Carbon Dioxide 22.1, Anion Gap 12, BUN 11, Creatinine 0.70, Estim Creat Clear Calc 96.82, Est GFR (MDRD) Non-Af 97, BUN/Creatinine Ratio 15.8, Glucose 108 H, Calcium 8.7 01/02/25 06:47: POC Glucose 114 H Rhythm Strip Rhythm Strip: Sinus Rhythm Rate: 75 Ectopy: None Physical Exam Narrative GENERAL: cooperative HEENT: Atraumatic; normocephalic EYES; Anicteric, Normal Conjunctiva NECK; supple, normal thyroid, RESPIRATORY: Diminished to auscultation CARDIOVASCULAR: Regular S1 S2, with a loud systolic murmur GI: soft, normoactive bowel sounds, : No Renal angle tenderness; EXTREMITIES: No edema, no clubbing, MUSCULOSKELETAL: no muscle wasting NEURO: Awake; no lateralizing signs. SKIN: No Rash PSYCH; Flat affect Assessment & Plan Assessment/Plan (1) Syncope: QUALIFIERS: Syncope type: unspecified Qualified Code(s): R55 - Syncope and collapse PLAN: Plan Patient is a 74-year-old gentleman admitted with multiple syncopal episodes 1. Syncopal episode ? Tach to be secondary to cardiac syncope. Patient has been admitted to a monitored bed for continuous telemetry monitoring consult placed to cardiology 2D echo ordered in addition to serial cardiac enzymes ? 12/31/2024 patient seen no significant arrhythmia overnight. Patient underwent nuclear stress test as part of his evaluation. Results pending. 2D echo obtained the day prior results as below Mild concentric left ventricular hypertrophy. Inferior and posterior hypokinesis. Overall LVEF estimated at 50%. Stage I diastolic dysfunction. The left atrium is severely enlarged. Severe mitral valve annular calcification. Mild mitral valve regurgitation. Mild aortic valve calcification. Moderate aortic valve stenosis with mean peak gradient 23 mmHg. Mild aortic valve regurgitation. Mildly dilated aortic root. ?01/01/2025 patient underwent stress echo on on 12/31/2024 findings included 2-1 AV block noted during the peak exercise with symptoms and hypokinesis of the inferior posterior wall. - Plan is for patient to undergo pacemaker placement and subsequently have his coronaries evaluated with a left heart catheterization ? 01/02/2025Patient underwent pacemaker placement on 01/01/2025. Chest x-ray this a.m. did not show any did not show any pneumothorax. Patient pacemaker has been interrogated and is working as programmed 2. Elevated troponin ? Patient did not have any chest pain shortness of breath except for a syncopal episode. Serial cardiac enzymes ordered cardiology on board ? 01/02/2025; patient stress test demonstrated hypokinesis of the posterior inferior wall. Plan is for patient to undergo left heart cath as outpatient 3. Coronary artery disease with previous CABG at [facility] 3 years prior. Patient remains on guideline directed medical therapy 4. Valvular heart disease ? 2D echo demonstrated moderate aortic valve stenosis with mean peak gradient of 23 mmHg 5. Diabetes mellitus type II -patient's oral hypoglycemics held. Placed on long acting insulin, Accu-Cheks a.c. and at bedtime and covered with sliding scale insulin 6. Essential hypertension ? Patient blood pressure was low on admission 98/79 patient is on metoprolol and lisinopril held 7. Dyslipidemia ?Patient is on statin therapy, continued at home dose 8. DVT prophylaxis ? On enoxaparin Time spent in the patient's overall evaluation,decision-making process, review of diagnostic data, adjustment of management, discussion with other providers, nursing nursing and ancillary staff involved in patient's care documentation, 35 Minutes Charges/Coding Visit Charges Inpatient E&M: 46515 Subs Hosp L2
[2025-01-02 09:00] VITALS: BP 144/84; PULSE 97; RESP 20; TEMP 36.6; O2SAT 96
[2025-01-02] MEDS: Aspirin E.C. 81 MG Tablet PO (09:56)
[2025-01-02 09:57] VITALS: BP 144/84; PULSE 97
--- NOTE | 2025-01-02 11:14 | PCM.PN.CARD ---
Subjective Subjective Patient seen and evaluated. Objective Data Vital Signs: Vital Signs Temp Pulse Resp BP Pulse Ox O2 Del Method 97.8 F 97 20 H 144/84 H 96 Room Air 01/02/25 09:00 01/02/25 09:57 01/02/25 09:00 01/02/25 09:57 01/02/25 09:00 01/02/25 09:45 Oxygen Delivery Method Room Air Weight: 231 lb 14.821 oz Body Mass Index (BMI) 34.2 Intake & Output: Intake and Output for Last 24 Hours 12/31/24 01/01/25 01/02/25 23:59 23:59 23:59 Intake Total 400 / 900 860 / 860 Output Total 300 / 300 Balance 400 / 900 860 / 860 -300 / -300 Lab / Micro Data 01/02/25 05:18 01/02/25 05:18 Labs: Laboratory Results - last 24 hr 01/01/25 11:32: POC Glucose 100 01/01/25 16:02: POC Glucose 211 H 01/02/25 05:18: WBC 6.3, RBC 4.14 L, Hgb 12.3 L, Hct 36.2 L, MCV 87.4, MCH 29.7, MCHC 34.0, RDW Std Deviation 40.4, RDW Coeff of Khoa 12.9, Plt Count 161, MPV 9.6, Immature Gran % (Auto) 0.500, Neut % (Auto) 76.1 H, Lymph % (Auto) 11.0 L, [place] % (Auto) 10.0, Eos % (Auto) 2.1, Baso % (Auto) 0.3, Absolute Neuts (auto) 4.8, Absolute Lymphs (auto) 0.69 L, Nucleated RBC % 0, Sodium 139, Potassium 4.0, Chloride 104, Carbon Dioxide 22.1, Anion Gap 12, BUN 11, Creatinine 0.70, Estim Creat Clear Calc 96.82, Est GFR (MDRD) Non-Af 97, BUN/Creatinine Ratio 15.8, Glucose 108 H, Calcium 8.7 01/02/25 06:47: POC Glucose 114 H Rhythm Strip Rhythm Strip: Sinus Rhythm Rate: 75 Ectopy: None Cardiology Labs/Tests 01/02/25 05:18: WBC 6.3, RBC 4.14 L, Hgb 12.3 L, Hct 36.2 L, MCV 87.4, MCH 29.7, MCHC 34.0, Plt Count 161, MPV 9.6, Immature Gran % (Auto) 0.500, Neut % (Auto) 76.1 H, Lymph % (Auto) 11.0 L, [place] % (Auto) 10.0, Eos % (Auto) 2.1, Baso % (Auto) 0.3, Absolute Neuts (auto) 4.8, Nucleated RBC % 0, Sodium 139, Potassium 4.0, Chloride 104, Carbon Dioxide 22.1, Anion Gap 12, BUN 11, Creatinine 0.70, Est GFR (MDRD) Non-Af 97, BUN/Creatinine Ratio 15.8, Glucose 108 H, Calcium 8.7 Rhythm: EKG: ECHO: Stress Test: Cardiac Cath: PCI: CT Surgery: Holter monitor: EPS: PPM: CXR: Chest CT Scan: Radiography Diagnostic Testing: Radiology Impression Chest X-Ray 01/02/25 05:57 IMPRESSION: Left-sided pacemaker in place. No pneumothorax. Reading Location: [facility] Physical Exam Const alert, oriented x3 and no apparent distress General Appearance: cooperative HEENT hearing grossly normal bilaterally Head and Scalp: atraumatic Eyes EOMs intact bilaterally Neck General: normal visual inspection Chest inspection of chest normal and palpation of chest normal Resp normal respiratory effort Auscultation: clear to auscultation bilaterally Cardio regular rate, regular rhythm, S1 normal heart sound and S2 normal heart sound Jugular Venous Distention: JVD GI normal to inspection, nondistended, normoactive bowel sounds Extremity normal capillary refill and no pedal edema Peripheral Pulses: Yes pulses 2+ throughout and femoral pulses present Skin no rashes or lesions noted Neuro oriented x3 and CN's II-XII intact bilaterally Psych Appearance: grossly normal and appropriate Assessment & Plan Assessment/Plan (1) Syncope: QUALIFIERS: Syncope type: unspecified Qualified Code(s): R55 - Syncope and collapse PLAN: Patient's had no recurrence of his symptoms of syncope or near syncope since admission. Patient underwent dual-chamber pacemaker placement yesterday and chest x-ray demonstrates good position and numbers appear to be stable. Can be discharged for outpatient follow-up. (2) Hypertension: QUALIFIERS: Hypertension type: primary hypertension Qualified Code(s): I10 - Essential (primary) hypertension PLAN: Blood pressure is well-controlled at this point in time. He remains normotensive. (3) Aortic valve stenosis: QUALIFIERS: Cardiac valve disease etiology: nonrheumatic Qualified Code(s): I35.0 - Nonrheumatic aortic (valve) stenosis PLAN: Patient has a history of aortic valve stenosis with a peak gradient of 36 mean gradient of 23 a little over a year ago. Echocardiogram still demonstrates moderate aortic stenosis. I do not think that this is responsible for his symptoms. (4) Coronary artery disease: QUALIFIERS: Coronary Disease-Associated Artery/Lesion type: [place] artery [place] vs. transplanted heart: [place] heart Associated angina: without angina Qualified Code(s): I25.10 - Atherosclerotic heart disease of [place] coronary artery without angina pectoris PLAN: Patient has known coronary disease status post an inferior wall presumed infarct by all stress testing and echo criteria. He received bypass graft surgery at [facility] in 2021. His stress test did demonstrate possible mild ischemia in the inferior posterior region. This can be evaluated with coronary angiography after the pacemaker is placed.
--- NOTE | 2025-01-02 11:16 | DCINST_ITS ---
Discharge Instructions DC O2, CPAP, BIPAP needs Home O2 Discharge instructions: No Dressing / Incision Discharge Activity: May Not Drive May shower in (days): 2 Additional Activity Instructions:: May shower or bathe on [day 3]. Do not scrub the incision or soak in the tub. Just wash with soap and let the water run over the incision. Gently pat dry with towel. Medications: Take your pain medication as directed. Refer to your discharge instruction sheet for a list of medications you are to take. Dressing / Incision Call your doctor if your incision/area has: Continuous Slow Oozing, Sudden Increased Bleeding, Increased Pain/ Swelling, Increased Redness, Foul Smelling Discharge and Swelling at the incision site Call your doctor if you observe: Fever of 101 or Higher, Shortness of breath, Dizziness, Fainting spells, Swelling in the ankles, Chest pain, Prolonged hiccupping and Increased palpitations (irregular heartbeat) Suture Line Care: Avoid Pulling/Pushing and Avoid Pinching/Bending Change Dressing in: do not change dressing Additional Dressing/Incision Instructions:: When dressing is removed, wash and dry incision. Keep covered with a light bandage if it is rubbing against your clothing. Do not cover the incision with an airtight bandage. Change the bandage daily. Do not remove steri strips. The strips will fall off on their own. Follow Up Care Please Follow Up With: Anthony Lopez MD When: Pacer follow-up on January 13 at 10 AM [facility] Test Results: Test results from this visit will be discussed in further detail at your follow- up appointment, if applicable. Discharge Plan Admission Admit Date/Time: 12/29/24 16:22 Attending Provider: Juanjo Farrar Primary Care Provider: Erasmo Valadez Consulting Providers: Hailee Hull Discharge Orders/Prescriptions Prescriptions: No Action (DME) FreeStyle Lite Strips Strip MISCELLANEOUS TID metformin 500 mg tablet extended release 24 hr 500 mg PO BID (DME) lancets [FreeStyle Lancets] 28 gauge misc MISCELLANEOUS TID folic acid 1 mg tablet 1 mg PO DAILY aspirin [Adult Low Dose Aspirin] 81 mg tablet,delayed release (DR/EC) 81 mg PO DAILY acetaminophen 500 mg tablet 1,000 mg PO BID PRN (Reason: Pain) Mounjaro 15 mg/0.5 mL pen injector 15 mg subcut QWEEK Qty: 2 0RF atorvastatin 40 mg tablet 40 mg PO DAILY Qty: 90 3RF metoprolol tartrate 50 mg tablet 50 mg PO BID Qty: 180 3RF lisinopril 10 mg tablet 10 mg PO DAILY Qty: 90 3RF Referrals / Follow Up: Erasmo Valadez MD [Primary Care Provider, Family Practice]
--- NOTE | 2025-01-02 11:46 | PCM.DC.SUM ---
Providers Date of Admission: 12/29/24 Date of Discharge: 01/02/25 Primary Care Physician: Dr. Erasmo Valdaez MD Reason For Visit: SYNCOPE Diagnosis Discharge Diagnosis (1) Syncope: Status: Acute Code(s): R55 - Syncope and collapse Qualifiers: Syncope type: unspecified Qualified Code(s): R55 - Syncope and collapse (2) Hypertension: Status: Chronic Code(s): I10 - Essential (primary) hypertension Qualifiers: Hypertension type: primary hypertension Qualified Code(s): I10 - Essential (primary) hypertension (3) Aortic valve stenosis: Status: Chronic Code(s): I35.0 - Nonrheumatic aortic (valve) stenosis Qualifiers: Cardiac valve disease etiology: nonrheumatic Qualified Code(s): I35.0 - Nonrheumatic aortic (valve) stenosis (4) Coronary artery disease: Status: Chronic Code(s): I25.10 - Atherosclerotic heart disease of [place] coronary artery without angina pectoris Qualifiers: Coronary Disease-Associated Artery/Lesion type: [place] artery [place] vs. transplanted heart: [place] heart Associated angina: without angina Qualified Code(s): I25.10 - Atherosclerotic heart disease of [place] coronary artery without angina pectoris Plan Patient is a 74-year-old gentleman admitted with multiple syncopal episodes 1. Syncopal episode ? Tach to be secondary to cardiac syncope. Patient has been admitted to a monitored bed for continuous telemetry monitoring consult placed to cardiology 2D echo ordered in addition to serial cardiac enzymes ? 12/31/2024 patient seen no significant arrhythmia overnight. Patient underwent nuclear stress test as part of his evaluation. Results pending. 2D echo obtained the day prior results as below Mild concentric left ventricular hypertrophy. Inferior and posterior hypokinesis. Overall LVEF estimated at 50%. Stage I diastolic dysfunction. The left atrium is severely enlarged. Severe mitral valve annular calcification. Mild mitral valve regurgitation. Mild aortic valve calcification. Moderate aortic valve stenosis with mean peak gradient 23 mmHg. Mild aortic valve regurgitation. Mildly dilated aortic root. ?01/01/2025 patient underwent stress echo on on 12/31/2024 findings included 2-1 AV block noted during the peak exercise with symptoms and hypokinesis of the inferior posterior wall. - Plan is for patient to undergo pacemaker placement and subsequently have his coronaries evaluated with a left heart catheterization ? 01/02/2025Patient underwent pacemaker placement on 01/01/2025. Chest x-ray this a.m. did not show any did not show any pneumothorax. Patient pacemaker has been interrogated and is working as programmed 2. Elevated troponin ? Patient did not have any chest pain shortness of breath except for a syncopal episode. Serial cardiac enzymes ordered cardiology on board ? 01/02/2025; patient stress test demonstrated hypokinesis of the posterior inferior wall. Plan is for patient to undergo left heart cath as outpatient 3. Coronary artery disease with previous CABG at [facility] 3 years prior. Patient remains on guideline directed medical therapy 4. Valvular heart disease ? 2D echo demonstrated moderate aortic valve stenosis with mean peak gradient of 23 mmHg 5. Diabetes mellitus type II -patient's oral hypoglycemics held. Placed on long acting insulin, Accu-Cheks a.c. and at bedtime and covered with sliding scale insulin 6. Essential hypertension ? Patient blood pressure was low on admission 98/79 patient is on metoprolol and lisinopril held 7. Dyslipidemia ?Patient is on statin therapy, continued at home dose 8. DVT prophylaxis ? On enoxaparin Time spent in the patient's overall evaluation,decision-making process, review of diagnostic data, adjustment of management, discussion with other providers, nursing nursing and ancillary staff involved in patient's care documentation, 35 Minutes Medications at Discharge Home Medications aspirin 81 mg tablet,delayed release (Adult Low Dose Aspirin) 81 mg PO DAILY 06/13/21 folic acid 1 mg tablet 1 mg PO DAILY 06/13/21 acetaminophen 500 mg tablet 1,000 mg PO BID PRN Pain 11/14/22 tirzepatide 15 mg/0.5 mL subcutaneous pen injector (Mounjaro) 15 mg (0.5 mL) subcut QWEEK #2 mL 03/29/23 atorvastatin 40 mg tablet 40 mg PO DAILY cholesterol #90 tabs 04/30/23 metoprolol tartrate 50 mg tablet 50 mg PO BID #180 tabs 04/30/23 lisinopril 10 mg tablet 10 mg PO DAILY #90 tabs 06/05/24 blood sugar diagnostic (FreeStyle Lite Strips) 12/29/24 lancets 28 gauge (FreeStyle Lancets) 12/29/24 metformin 500 mg tablet,extended release 24 hr 500 mg PO BID 12/29/24 Physical Exam Narrative GENERAL: cooperative HEENT: Atraumatic; normocephalic EYES; Anicteric, Normal Conjunctiva NECK; supple, normal thyroid, RESPIRATORY: Diminished to auscultation, pacemaker incision site clean dry and intact CARDIOVASCULAR: Regular S1 S2, with a loud systolic murmur GI: soft, normoactive bowel sounds, : No Renal angle tenderness; EXTREMITIES: Left upper extremity immobilized MUSCULOSKELETAL: no muscle wasting NEURO: Awake; no lateralizing signs. SKIN: No Rash PSYCH; Flat affect Weight / BMI Weight Weight: 105.2 kg Body Mass Index (BMI) 34.2 ABG / Lab / Microbiology Data 01/02/25 05:18 01/02/25 05:18 Laboratory: Laboratory Results - last 24 hr 01/01/25 11:32: POC Glucose 100 01/01/25 16:02: POC Glucose 211 H 01/02/25 05:18: WBC 6.3, RBC 4.14 L, Hgb 12.3 L, Hct 36.2 L, MCV 87.4, MCH 29.7, MCHC 34.0, RDW Std Deviation 40.4, RDW Coeff of Khoa 12.9, Plt Count 161, MPV 9.6, Immature Gran % (Auto) 0.500, Neut % (Auto) 76.1 H, Lymph % (Auto) 11.0 L, [place] % (Auto) 10.0, Eos % (Auto) 2.1, Baso % (Auto) 0.3, Absolute Neuts (auto) 4.8, Absolute Lymphs (auto) 0.69 L, Nucleated RBC % 0, Sodium 139, Potassium 4.0, Chloride 104, Carbon Dioxide 22.1, Anion Gap 12, BUN 11, Creatinine 0.70, Estim Creat Clear Calc 96.82, Est GFR (MDRD) Non-Af 97, BUN/Creatinine Ratio 15.8, Glucose 108 H, Calcium 8.7 01/02/25 06:47: POC Glucose 114 H Radiography Diagnostic Testing: Radiology Impression Chest X-Ray 01/02/25 05:57 IMPRESSION: Left-sided pacemaker in place. No pneumothorax. Reading Location: [id number] Instructions May shower in (days): 2 Additional Activity Instructions: May shower or bathe on [day 3]. Do not scrub the incision or soak in the tub. Just wash with soap and let the water run over the incision. Gently pat dry with towel. Medications: Take your pain medication as directed. Refer to your discharge instruction sheet for a list of medications you are to take. Call your doctor if your incision/area has: Continuous Slow Oozing, Sudden Increased Bleeding, Increased Pain/ Swelling, Increased Redness, Foul Smelling Discharge and Swelling at the incision site Call your doctor if you observe: Fever of 101 or Higher, Shortness of breath, Dizziness, Fainting spells, Swelling in the ankles, Chest pain, Prolonged hiccupping and Increased palpitations (irregular heartbeat) Suture Line Care: Avoid Pulling/Pushing and Avoid Pinching/Bending Additional Dressing/Incision Instructions: When dressing is removed, wash and dry incision. Keep covered with a light bandage if it is rubbing against your clothing. Do not cover the incision with an airtight bandage. Change the bandage daily. Do not remove steri strips. The strips will fall off on their own. DC O2, CPAP, BIPAP Needs Home O2 Discharge instructions: No Please Follow Up With: Anthony Lopez MD When: Pacer follow-up on January 13 at 10 AM [facility] Meaningful Use Info Meaningful Use Meaningful Use Diagnoses (Choose all that apply): None applicable Discharge Plan Admission Admit Date/Time: 12/29/24 16:22 Attending Provider: Juanjo Farrar Primary Care Provider: Erasmo Valadez Consulting Providers: Hailee Hull Discharge Orders/Prescriptions Prescriptions: No Action (DME) FreeStyle Lite Strips Strip MISCELLANEOUS TID metformin 500 mg tablet extended release 24 hr 500 mg PO BID (DME) lancets [FreeStyle Lancets] 28 gauge misc MISCELLANEOUS TID folic acid 1 mg tablet 1 mg PO DAILY aspirin [Adult Low Dose Aspirin] 81 mg tablet,delayed release (DR/EC) 81 mg PO DAILY acetaminophen 500 mg tablet 1,000 mg PO BID PRN (Reason: Pain) Mounjaro 15 mg/0.5 mL pen injector 15 mg subcut QWEEK Qty: 2 0RF atorvastatin 40 mg tablet 40 mg PO DAILY Qty: 90 3RF metoprolol tartrate 50 mg tablet 50 mg PO BID Qty: 180 3RF lisinopril 10 mg tablet 10 mg PO DAILY Qty: 90 3RF Referrals / Follow Up: Anthony Lopez MD [Med Staff - Active Staff, Cardiology] - 01/13/25 10:00 am Referral Note: PACEMAKER WOUND FOLLOW UP Erasmo Valadez MD [Primary Care Provider, Family Practice] Disposition Disposition (needs filled in before D/C Order can be placed): Home, Self Care Charges/Coding Visit Charges Inpatient E&M: 67715 Disch Hosp >30min
[2025-01-02 12:00] VITALS: BP 144/84; PULSE 97; RESP 20; TEMP 36.6; O2SAT 96
--- NOTE | 2025-01-02 13:46 | PHA.DC_ITS ---
Pharmacy [facility] Counseling Pharmacy Service has performed discharge medication reconciliation and counseling for this patient. The patient's discharge medication list was reviewed for discrepancies and discrepancies were resolved. The patient was counseled on the following discharge medications and changes in medications for homegoing were reviewed. The Reason for Use, instructions for use, and potential side effects were reviewed for all new medications. The patient's questions regarding all of their medications were answered. 1. Metoprolol tartrate 12.5 mg PO BID The patient was able to verbally demonstrate an understanding of their discharge medications. Medications at Discharge Home Medications aspirin 81 mg tablet,delayed release (Adult Low Dose Aspirin) 81 mg PO DAILY 06/13/21 folic acid 1 mg tablet 1 mg PO DAILY 06/13/21 acetaminophen 500 mg tablet 1,000 mg PO BID PRN Pain 11/14/22 tirzepatide 15 mg/0.5 mL subcutaneous pen injector (Mounjaro) 15 mg (0.5 mL) subcut QWEEK #2 mL 03/29/23 atorvastatin 40 mg tablet 40 mg PO DAILY cholesterol #90 tabs 04/30/23 lisinopril 10 mg tablet 10 mg PO DAILY #90 tabs 06/05/24 blood sugar diagnostic (FreeStyle Lite Strips) 12/29/24 lancets 28 gauge (FreeStyle Lancets) 12/29/24 metformin 500 mg tablet,extended release 24 hr 500 mg PO BID 12/29/24 metoprolol tartrate 25 mg tablet 12.5 mg (1/2 x 25 mg) PO BID 30 days #30 tabs 01/02/25
== END 2025-01-02 15:59 | disposition home or self-care (01) | DRG 242 ==
LOC: ED 15:51 → PCU 16:31
PROVIDERS: Internal Medicine Cardiovascular Disease; Admitting Provider Internal Medicine; Emergency Provider Student in an Organized Health Care Education/Training Program; PCP Family Medicine; Visit Provider Internal Medicine
DX: I44.1 Atrioventricular block, second degree (principal); I21.A1 Myocardial infarction type 2; E11.65 Type 2 diabetes mellitus with hyperglycemia; I10 Essential (primary) hypertension; I35.0 Nonrheumatic aortic (valve) stenosis; I25.10 Atherosclerotic heart disease of native coronary artery without angina pectoris; E78.00 Pure hypercholesterolemia, unspecified; M12.812 Other specific arthropathies, not elsewhere classified, left shoulder; I51.7 Cardiomegaly; R55 Syncope and collapse; Z95.1 Presence of aortocoronary bypass graft; Z79.82 Long term (current) use of aspirin; Z79.84 Long term (current) use of oral hypoglycemic drugs; Z79.85 Long-term (current) use of injectable non-insulin antidiabetic drugs; Z79.899 Other long term (current) drug therapy; Z87.891 Personal history of nicotine dependence
CPT/HCPCS: 33208; 36415; 70450; 71046; 72125; 80048; 82962; 83735; 84100; 84132; 84443; 84484; 85025; 85610; 85730; 93005; 93017; 93306; 93350; 97161; 97164; 99152; 99153; 99285; Q9957; A4216; C1894; C8928; C8929